=== PATIENT | female | born 1970 | race Caucasian/White ===

== ENCOUNTER 2020-08-17 11:15 | Emergency (ER) | payer OTHER, SELFPAY ==
[2020-08-17 11:24] VITALS: BP 124/77; BP 150/60; PULSE 70; PULSE 80; RESP 17; TEMP 36.4; O2SAT 97; BMI 31.8
--- NOTE | 2020-08-17 11:36 | ED.FALL ---
HPI - Fall General Chief Complaint: Fall Stated Complaint: fall Time Seen by Provider: 08/17/20 11:36 Source: patient and EMS Mode of arrival: EMS Limitations: no limitations History of Present Illness HPI Narrative: trip and fall onto her right knee having right knee pain and right hip pain. States the fall occurred due to her walking to bathroom and tripping. There was no prodromal symptoms. There was no injury to the torso head or neck. Otherwise she has been doing well at her baseline. Onset (ago): minute(s) Place fall occurred: home Loss of consciousness: none Prolonged down time: no Symptoms prior to fall: none Context: tripped/slipped Location of injury - extremities: left: knee Severity: moderate Quality: aching Associated symptoms (after fall): denies Related Data Allergies Allergy/AdvReac Type Severity Reaction Status Date / Time No Known Allergies Allergy Verified 08/17/20 11:31 Review of Systems Review of Systems: Constitutional: No Weight loss, No Fever, No Chills, No Night Sweats, No Fatigue, No Malaise ENT/Mouth: No Hearing loss, No Ear Pain, No Nasal Congestion, No Sinus Pain, No Hoarseness, No sore throat, No Rhinorrhea, No Swallowing Difficulty Eyes: No Eye Pain, No Swelling, No Redness, No Foreign Body, No Discharge, No Vision Changes Cardiovascular: No Chest Pain, No SOB, No Dyspnea on Exertion, No Orthopnea, No Edema, No Palpitations Respiratory: No Cough, No Sputum, No Wheezing, No Dyspnea Gastrointestinal: No Nausea, No Vomiting, No Diarrhea, No Constipation, No abdominal Pain, No Hematochezia, No Melena Genitourinary: no irregular bleeding, No Dysuria, No Urinary Frequency, No Hematuria, No Urinary Incontinence, No Urgency, No Flank Pain, No Urinary Flow Changes, No Hesitancy Musculoskeletal:as per HPI Skin: No Skin Lesions, No rash Neuro: No Weakness, No Numbness, No Paresthesias, No Loss of Consciousness, No Dizziness, No Headache Psych: No Social Issues Heme/Lymph: No Bruising, No Bleeding,No Lymphadenopathy Endocrine: No Polyuria, No Polydipsia, No Temperature Intolerance Yes all other systems are reviewed and are negative [facility] Past Medical History Attestation statement: The following information was validated with the patient. 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 High blood pressure Necrotizing fasciitis Social History Social History Alcohol intake: unknown Advance Directives: No Advance Directives Information Provided: Yes Physical Exam Vital Signs: Vital Signs: Vital Signs Temp Pulse Resp BP Pulse Ox 08/17/20 11:24 97.6 F 70 17 124/77 97 Body Mass Index 31.8 Reviewed Const: General: cooperative and healthy appearing; No acute distress or intoxicated appearing Nutritional Appearance: average body habitus Orientation/consciousness: patient oriented x3 HENMT: Head: Yes normal to inspection Ears: hearing grossly normal bilaterally Eyes: General: appearance normal, both eyes and all related structures Visual Smyth: normal visual smyth by confrontation Neck: Neck: Yes normal visual inspection and No tender Thyroid: Thyroid normal Chest: Chest palpation & inspection: normal inspection of the chest Resp: Effort & Inspection: normal respiratory effort Cardio: Jugular venous distension: no JVD GI: Inspection: Yes normal to inspection : General: Yes no CVA tenderness Back/Spine/Pelvis: Back: no CVA tenderness Skin: General skin exam: no rashes or lesions noted Neuro: General: patient oriented x3 Extrem: Other: Able to bend at the knee bilaterally. Slightly limited on the left side due to the pain in the knee. Bilateral negative leg lift. General: Yes normal to inspection Elbow/forearm/wrist images: 1. Small area of ecchymosis. No abrasion. Course Course Course Narrative: x-ray without acute findings. Patient able to get out of bed and use a walker at her baseline gait. A/P consistent with mechanical fall/contusion/ strain. Will discharge home with NSAIDs/acetaminophen and follow-up. MDM - Fall Medical Records Attestation: I reviewed the patient's medical records. Imaging Data Left knee/ right hip with pelvis: Radiologist's impression: Greer Akins 49 F 1970 [address] [address] XRay Report Signed Patient: Greer Akins [facility]#: [id number] : 1970Acct:[id number] Age/Sex: 49 / FADM Date: 08/17/20 Loc: HO.ED Attending Dr: Ordering Physician: John Wagoner NP Date of Service: 08/17/20 Procedure(s): XR hip RT w PEL1V Accession Number(s): [id number] cc: John Wagoner PHYSICIAN CODING SPECIALIST~ EXAMINATION: XR HIP, RIGHT XR KNEE, LEFT CLINICAL INFORMATION: Fall, pain, swelling. COMPARISON: Left knee 02/07/2018. TECHNIQUE: Pelvis 1 view, right hip 2 views. Left knee 4 views. FINDINGS: Pelvis and Right Hip: No evidence of acute fracture or dislocation of the right hip. Mild right hip arthritis, with mild joint space loss, acetabular rim spurring. Small calcifications/spurring adjacent to the greater tuberosity. Surgical clip in the medial thigh. Mild left hip arthritis. Mild bilateral SI joint arthritis. Degenerative changes in the lower lumbar spine. Szhr-[id number] symphysis pubis degeneration. No acute pelvic fractures are seen. Round calcification in the pelvis, perhaps calcified fibroid. Left Knee: Marginal spurring in the 3 compartments. Mild medial compartment joint space narrowing. Suspected patellofemoral compartment joint space narrowing on the lateral projection as well. No visible acute fracture or dislocation. Small effusion. IMPRESSION: PELVIS AND RIGHT HIP: 1. No evidence of acute fracture or dislocation. Mild bilateral hip joint arthritis. 2. Additional degenerative/arthritic changes as detailed above. LEFT KNEE: Tricompartment arthritis. No evidence of acute fracture or dislocation. Small effusion. Dictated By:VANESSA KATE MD Signed By:<Electronically signed by VANESSA KATE MD in OV>08/17/20 1239 DD/ 1148 TD/TT: Telecom Analyst: Discharge Plan Discharge Clinical Impression: Contusion of knee, Fall Patient Disposition: Home, Self-Care Instructions: Contusion in Adults (ED), Fall Prevention for Older Adults (ED) Additional Instructions: ice, elevate, compresses Tylenol alternate with ibuprofen per label instructions for pain discomfort Supportive cares reviewed Return if any concerning symptoms Thank you Referrals: Rancho Duarte MD [Primary Care Provider] - 2 days
--- NOTE | 2020-08-17 11:48 | XR_ITS ---
EXAMINATION: XR HIP, RIGHT XR KNEE, LEFT CLINICAL INFORMATION: Fall, pain, swelling. COMPARISON: Left knee 02/07/2018. TECHNIQUE: Pelvis 1 view, right hip 2 views. Left knee 4 views. FINDINGS: Pelvis and Right Hip: No evidence of acute fracture or dislocation of the right hip. Mild right hip arthritis, with mild joint space loss, acetabular rim spurring. Small calcifications/spurring adjacent to the greater tuberosity. Surgical clip in the medial thigh. Mild left hip arthritis. Mild bilateral SI joint arthritis. Degenerative changes in the lower lumbar spine. Adug-eq-elpyueng symphysis pubis degeneration. No acute pelvic fractures are seen. Round calcification in the pelvis, perhaps calcified fibroid. Left Knee: Marginal spurring in the 3 compartments. Mild medial compartment joint space narrowing. Suspected patellofemoral compartment joint space narrowing on the lateral projection as well. No visible acute fracture or dislocation. Small effusion. IMPRESSION: PELVIS AND RIGHT HIP: 1. No evidence of acute fracture or dislocation. Mild bilateral hip joint arthritis. 2. Additional degenerative/arthritic changes as detailed above. LEFT KNEE: Tricompartment arthritis. No evidence of acute fracture or dislocation. Small effusion.
[2020-08-17] MEDS: oxyCODONE HCl Immed Release 5 MG TABLET PO (13:09)
--- NOTE | 2020-08-17 14:04 | PC.NURSE ---
PT AMBULATED WITH WALKER 50 FT AND BACK TO ROOM WITHOUT ANY DIFFICULTY. PT HAS RIDE COMING TO TAKE HER HOME.
== END 2020-08-17 14:09 | disposition home or self-care (01) ==
PROVIDERS: Emergency Provider Emergency Medicine; PCP Internal Medicine
DX: S80.02XA Contusion of left knee, initial encounter (principal); W01.0XXA Fall on same level from slipping, tripping and stumbling without subsequent striking against object, initial encounter; E11.9 Type 2 diabetes mellitus without complications; Y93.89 Activity, other specified; Y92.012 Bathroom of single-family (private) house as the place of occurrence of the external cause; Y99.9 Unspecified external cause status
CPT/HCPCS: 73502; 73564; 99283

== ENCOUNTER 2021-01-20 10:00 | Outpatient (RCR) | payer OTHER, SELFPAY ==
--- NOTE | 2020-11-29 15:15 | MHC.PT.EP ---
[facility] [place] Office [place] Office [place] Office [address] [phone] F: [phone] F: [phone] F: [phone] F: [phone] Physical Therapy Plan of Care Date of Evaluation: 11/29/20 Date of Surgery: Diagnosis: pain in unspecified knee Assessment: Pt is a 50 y.o.f. with chief complaint of (L) leg pain following mechanical fall x 3. PMH is significant for necrotizing fasciitis that resulted in 3 month hospitalization and 3 weeks in ICU on ventilator. Following hospitalization pt has received rehab hospitalization x 4 weeks, home PT October 2020. Pt presents today with sensation changes across (B) feet, (L) ankle ROM deficits, decreased gastroc length, postural abnormalities, gait abnormalities including limited (L) foot clearance/toe drag, and global weakness of LEs with L>R. Pt weakness is likely due to deconditioning secondary to prior hospitalization. Pt sxs are consistent with global deconditioning resulting in functional mobility limitations that are further affected by left knee OA. Pt will benefit from skilled PT 2x week for 6 weeks to improve strength, ankle ROM, and gait/postural abnormalities to aid in functional mobility, ambulation, and ADLs. Frequency and Duration: The patient will be seen 2x/week for 6 weeks Short Term Goals: 3 Weeks: 1) Pt will be independent in HEP to maintain gains between sessions 2) Pt will be able to demonstrate proper STS technique to aid in transfers at home. Stuffed Casing Tier Goals: 6 Weeks: 1) Pt LE MMT will be 4/5 or greater to aid in ADLs 2) Pt will be able to ambulate >200 feet to aid in walking dog 3) Pt will be able to stand >45 minutes to aid in cleaning home Treatment Plan: Modalities to reduce pain, spasms and effusion. Manual therapy to restore motion and function. Therapeutic exercise to improve strength and flexibility. Neuromuscular re-education for posture and balance. Therapeutic activities to return to functional activities of daily living. Electronically signed by: Hattie Nagel PT Please sign and return to therapist. Thank you for your referral.
--- NOTE | 2021-01-20 10:55 | MHC.PT.DC ---
[facility] [place] Office [place] Office [place] Office [address] Ceasar Kirkpatrick [address] [phone] F: [phone] F: [phone] F: [phone] F: [phone] Physical Therapy Discharge Report Diagnosis: pain in unspecified knee Date of Surgery: Date of Evaluation: 11/29/20 Date of Discharge: 01/20/21 Treatments to Date: 12 Cancellations to Date: 0 No Shows to Date: 0 Discharge Status: Improved Function Independent with HEP Discharge Summary: Pt feels stronger over all and is now able to walk 10 minutes. She feels that she can get in/out of chairs easier as well. She will continue with services at home at this time and she is becoming more I managing medication. We reviewed HEP and pt performs correctly without cues. D/c at this time to I HEP. Electronically signed by: Hattie Cabral PT Please sign and return to therapist. Thank you for your referral.
== END 2021-01-20 10:57 | disposition home or self-care (01) ==
LOC: HO.PTCHIC 10:00
PROVIDERS: PCP Internal Medicine; Visit Provider Internal Medicine
DX: M25.569 Pain in unspecified knee (principal)
CPT/HCPCS: 97110; 97112; 97140; 97162; 97530

== ENCOUNTER 2021-06-11 08:59 | Outpatient (REF) | payer OTHER, SELFPAY ==
[2021-06-11 11:09] LABS: MANUAL DIFF FLAG NO
[2021-06-11 11:21] LABS: Basophils Absolute Auto 0.1 X10*3/uL (0.0-0.2); Basophils Percent Auto 0.6 % (0-2); Eosinophils Absolute Auto 0.4 X10*3/uL (0.0-0.4); Eosinophils Percent Auto 4.6 % (0-4); Hematocrit 43.9 % (37-47); Hemoglobin 14.3 g/dl (12.0-16.0); Imm Gran Abs Auto 0.04 X10*3/uL (0.00-0.03); Imm Gran Pct Auto 0.4 % (0.0-0.4); Lymphocytes Percent Auto 21.8 % (20-40); Mean Corpuscular HGB Conc 32.6 g/dl (31.0-35.0); Mean Corpuscular Hemoglobin 29.7 pg (27.0-33.0); Mean Corpuscular Volume 91.1 fL (80-98); Mean Platelet Volume 12.1 fL (9.4-12.3); Monocytes Absolute Auto 0.5 X10*3/uL (0.1-1.2); Monocytes Percent Auto 5.8 % (2-11); Neutrophils Absolute Auto 6.2 X10*3/uL (2.0-8.3); Neutrophils Percent Auto 66.8 % (45-73); Platelet Count 248 X10*3/uL (160-400); Red Blood Count 4.82 X10*6/uL (4.20-5.50); Red Cell Distribution Width 13.8 % (11.0-16.0); White Blood Count 9.3 X10*3/uL (4.8-10.8)
[2021-06-11 12:26] LABS: Alanine Aminotransferase 17 U/L (0-31); Albumin Level 4.5 g/dL (3.5-5.0); Alkaline Phosphatase 65 U/L (39-117); Anion Gap 14 (12-20); Aspartate Amino Transferase 17 U/L (5-31); Bilirubin Total 0.7 mg/dL (0.0-1.0); Blood Urea Nitrogen 21 mg/dL (9-16); Calcium 9.7 mg/dL (8.4-10.2); Carbon Dioxide 26 mmol/L (22-29); Chloride 108 mmol/L (96-108); Cholesterol 147 mg/dL; Estimated Glomerular Filt Rate > 60; HDL Cholesterol 31 mg/dL; LDL Cholesterol Calculated 80 mg/dl; Potassium 4.8 mmol/L (3.3-5.1); Sodium 143 mmol/L (135-145); Total Protein 7.5 g/dL (6.5-8.0); Triglycerides 181 mg/dL
[2021-06-11 12:41] LABS: Estimated Average Glucose 137 mg/dL; Hemoglobin A1c % 6.4 %
[2021-06-11 12:46] LABS: Thyroid Stimulating Hormone 0.92 uIU/mL (0.32-4.0)
[2021-06-11 12:54] LABS: Glucose Fasting 120 mg/dL (60-99)
== END 2021-06-11 09:00 | disposition home or self-care (01) ==
LOC: HO.HMGCLDS 08:59
PROVIDERS: PCP Internal Medicine; Visit Provider Internal Medicine
DX: Z00.00 Encounter for general adult medical examination without abnormal findings (principal); E11.9 Type 2 diabetes mellitus without complications; E03.9 Hypothyroidism, unspecified
CPT/HCPCS: 36415; 80053; 80061; 83036; 84443; 85025

== ENCOUNTER 2021-10-14 16:02 | Outpatient (REF) | payer MEDICARE, MEDICAID, SELFPAY ==
--- NOTE | ~2021-10-14 | XR_ITS ---
EXAMINATION: XR CHEST CLINICAL INFORMATION: R05.9 - Cough, unspecified COMPARISON: Chest radiographs 03/27/2020, 03/26/2020, 04/21/2017 TECHNIQUE: 2 views of the chest were obtained. FINDINGS: There is chronic mild elevation right diaphragm with crowding of the bronchovascular markings right base. There is mild superimposed airspace opacity right lateral base with probable trace effusion and fluid tracking in right minor fissure. No lobar or segmental airspace consolidation. There is chronic subpleural linear scarring left lower zone, similar to 2017. The heart is within normal size and the vascularity is within normal. XR/XR chest 2V IMPRESSION: 1. Small infiltrate right lateral base with probable trace effusion. 2. Chronic mild elevation right diaphragm with secondary passive atelectasis. 3. Linear subpleural scarring left lower zone similar to 2017.
[2021-10-14 18:47] LABS: Influenza A PCR NEGATIVE (Negative); Influenza B PCR NEGATIVE (Negative); Resp Syncy Virus RNA Qual PCR NEGATIVE (Negative); SARS COV2 PCR INHOUSE NEGATIVE (Negative)
== END 2021-10-14 16:03 | disposition home or self-care (01) ==
LOC: HO.HMGCX 16:02
PROVIDERS: PCP Internal Medicine; Visit Provider Internal Medicine
DX: Z20.822 Contact with and (suspected) exposure to COVID-19 (principal); R05.9 Cough, unspecified; R43.9 Unspecified disturbances of smell and taste
CPT/HCPCS: 0241U; 36415; 71046

== ENCOUNTER 2021-10-21 10:20 | Inpatient (IN) | payer MEDICARE, MEDICAID, SELFPAY ==
[2021-10-21] VITALS (7 sets, daily range): BP systolic 159–207; BP diastolic 74–110; PULSE 69–90; RESP 16–18; TEMP 36.5–36.8; O2SAT 92–94; BMI 37.2
--- NOTE | ~2021-10-21 | XR_ITS ---
EXAMINATION: XR CHEST CLINICAL INFORMATION: Cough. COMPARISON: Chest 2 views 10/14/2021 TECHNIQUE: Frontal view of the chest was obtained. FINDINGS: The lungs are hypoexpanded with chronically elevated right hemidiaphragm with underlying atelectasis. There is platelike atelectasis in the lingula. Heart size is enlarged. Is increased bilateral interstitial markings.. No gross bony abnormality seen. XR/XR chest 1V IMPRESSION: Hypoexpanded lungs. Right basilar atelectasis and platelike atelectasis in the lingula. Increased interstitial markings question pneumonitis versus edema.
--- NOTE | ~2021-10-21 | CT_ITS ---
EXAMINATION: CT ABDOMEN AND PELVIS WITH CONTRAST CLINICAL INFORMATION: Right lower quadrant pain COMPARISON: None TECHNIQUE: Multidetector volumetric images were obtained from the superior aspect of the liver through the pubic symphysis following administration 85 mL of Omnipaque 350 intravenous contrast. Sagittal and coronal reformatted images were obtained on the technologist's workstation. Oral contrast: No This CT examination was performed using dose optimization techniques as appropriate, variously including the following: *Automated exposure control *Adjustment of mA and/or kV according to patient size (this includes techniques or standardized protocols for targeted exams where dose is matched to indication/reason for exam; i.e. extremities or head) *Use of iterative reconstruction technique DLP: 818 mGy-cm FINDINGS: LUNG BASES: There is a right middle lobe airspace disease likely infiltrate or atelectasis. Rest lungs are clear. The heart size and pulmonary vascularity is normal. LIVER, GALLBLADDER, AND BILIARY TREE: The liver is normal in size, shape, and attenuation. No focal hepatic lesion or biliary ductal dilatation is present. There is a hyperdense gravel or small stones, axial image 31/3, along the dependent portion of gallbladder without wall thickening PANCREAS: Unremarkable. SPLEEN: Unremarkable. ADRENAL GLANDS: The left adrenal gland is enlarged measuring 2.5 x 1.6 cm and approximately 38 Hounsfield units not a benign adenoma. There is focal nodule in the right adrenal gland is well measuring and 1.1 cm. KIDNEYS AND URETERS: The kidneys are normal in size, shape, and attenuation. No hydronephrosis, hydroureter, or calculi seen. No perinephric stranding. BLADDER: The right kidney is small with diffuse cortical thinning. There are obstructive 1.3 cm radiopaque calculi mid pole with chronic caliectasis a nonobstructive lower pole 1.7 cm calculi right kidney without caliectasis is noted. There are several additional calculi seen in mid and lower pole. There is a partially obstructing 5 mm radiopaque calculi right UPJ. GASTROINTESTINAL TRACT: There is moderate stool in right colon. There is soft tissue density at the ileocecal valve measuring - -74 Hounsfield units suggestive of a lipomatous valve. No proximal small bowel obstruction seen. The appendix is normal. The stomach is nondistended and appears unremarkable. ABDOMINAL WALL: No evidence of hernia. LYMPH NODES: Small shotty lymph nodes are seen in the retroperitoneum largest aortocaval lymph node measures 1.4 x 0.9 cm axial image 41/3. VASCULAR: There are atherosclerotic changes of abdominal aorta with mild circumferential thrombus but no aneurysmal dilatation seen origins of celiac, superior and inferior mesenteric arteries are widely patent there is evidence of sclerotic plaque proximal SMA with moderate narrowing. PELVIC VISCERA: The uterus is anteverted with a moderate size calcified fibroid lower uterine segment measuring 1. 1.9 x 1.7 x 1.7 cm. No adnexal mass seen. No free fluid. There is no inguinal hernia or abnormal lymph nodes. OSSEOUS STRUCTURES: There are vacuum disc phenomena and degenerative disc changes at T11-T12, T12/L1 and L1-L2 disc levels. No aggressive lytic or sclerotic process seen. CT/CT abdomen pelvis w con IMPRESSION: No acute intra-abdominal process seen. Multiple midpole and lower pole radiopaque moderate size calculi within obstructive mid pole caliectasis. There is mild hydronephrosis from a right UVJ partially obstructive stone. There is a chronic cortical thinning midpole and upper pole right kidney. Radiopaque gravel was stones in the dependent portion of gallbladder but no wall thickening. Correlate with ultrasound. Lipomatous ileocecal valve with mild constipation. No proximal bowel obstruction. Normal appendix. There is no free air or free fluid. .
--- NOTE | ~2021-10-21 | FL_ITS ---
EXAMINATION: XR FLUOROSCOPY WITH IMAGES CLINICAL INFORMATION: Right urinary tract calculi. COMPARISON: CT abdomen and pelvis 10/21/2021 TECHNIQUE: Fluoroscopy performed by Dr. Leroy Farr. Fluoroscopy time: 49 seconds. Total Dose: 17.38 mGy Images: 2 FINDINGS: There is a catheter or stent seen in the right urinary tract. Contrast in the collecting system shows no hydronephrosis. There are some subtle filling defects present collecting system and proximal ureter corresponding to calculi on recent CT. FL/FL guidance in OR IMPRESSION: Fluoroscopy for urologic procedure.
--- NOTE | 2021-10-21 10:46 | ECG_ITS ---
Test Reason : abdominal pain Blood Pressure : / mmHG Vent. Rate : 072 BPM Atrial Rate : 072 BPM P-R Int : 188 ms QRS Dur : 078 ms QT Int : 392 ms P-R-T Axes : 033 -17 094 degrees QTc Int : 429 ms Sinus rhythm with occasional Premature ventricular complexes Anteroseptal infarct (cited on or before 22-SEP-2015) Abnormal ECG When compared with ECG of 26-MAR-2020 16:28, Premature ventricular complexes are now Present Questionable change in initial forces of Anterior leads ST no longer depressed in Anterolateral leads Nonspecific T wave abnormality no longer evident in Inferior leads Nonspecific T wave abnormality, worse in Lateral leads QT has shortened Referred By: Lizzie Cespedes Electronically Signed By:ROLLY FREDERICK
--- NOTE | 2021-10-21 10:54 | ED_ITS ---
HPI - Abdominal Pain General Chief Complaint: Abdominal Pain Stated Complaint: ABD PAIN Time Seen by Provider: 10/21/21 10:44 Source: patient Mode of arrival: EMS Limitations: no limitations History of Present Illness MD elicited complaint: abdominal pain Pertinent past history: none Onset (ago): day(s) (3) Pain Consistency: constant Location: RUQ and RLQ Severity: moderate Quality: stabbing Radiation: none Migration to: no migration Exacerbating factors: movement Relieving factors: nothing Context: recent antibiotic use (azithromycin one week ago from for URI) Associated symptoms: nausea and chills Related Data Home Medications Medication Instructions Recorded Confirmed acetaminophen 325 mg tablet 325 mg PO BID PRN 09/18/20 10/21/21 aspirin 81 mg tablet,delayed 81 mg PO DAILY 09/18/20 10/21/21 release hydroxyzine HCl 25 mg tablet 25 mg PO DAILY PRN tab 03/17/21 10/21/21 melatonin 3 mg tablet 3 mg PO BEDTIME 03/17/21 10/21/21 multivitamin with minerals-ferrous 1 tab PO DAILY tab 03/17/21 10/21/21 sulfate 4.5 mg iron tablet (One Daily Multivitamins with Minerals) albuterol sulfate 90 mcg/actuation 1 inh INHALATION QID PRN 10/21/21 10/21/21 aerosol inhaler nystatin 100,000 unit/gram topical 1 applic TOPICAL TID PRN 10/21/21 10/21/21 powder Previous Rx's Medication Instructions Recorded sertraline 100 mg tablet 100 mg PO DAILY #30 cap 12/13/20 amlodipine 5 mg tablet (Norvasc) 5 mg PO DAILY #30 tab 06/12/21 ergocalciferol (vitamin D2) 1,250 1,250 mcg PO QWEEK #4 cap 07/02/21 mcg (50,000 unit) capsule (Vitamin D2) omeprazole 40 mg capsule,delayed 40 mg PO DAILY #30 cap 07/02/21 release carvedilol 12.5 mg tablet 12.5 mg PO BID #60 tab 07/10/21 atorvastatin 80 mg tablet 80 mg PO DAILY #30 tab 07/26/21 gabapentin 100 mg capsule 200 mg PO TID #180 cap 08/28/21 metformin 500 mg tablet 500 mg PO BEDTIME #30 tab 09/06/21 insulin NPH isoph U-100 human 100 15 unit (0.15 mL) SUBCUT QAM 30 10/07/21 unit/mL (3 mL) subcutaneous pen Days #6 ml (Humulin N NPH U-100 Insulin KwikPen) Allergies Allergy/AdvReac Type Severity Reaction Status Date / Time No Known Allergies Allergy Verified 10/14/21 15:29 Review of Systems Review of Systems Constitutional : No Weight loss, No Fever, pos Chills ENT/Mouth : No sore throat, No Rhinorrhea Eyes: No Swelling, No Redness Cardiovascular : No Chest Pain, No SOB, NoEdema Respiratory : pos Cough, No Sputum, No Wheezing Gastrointestinal : Positive Nausea, no Vomiting, no Diarrhea, positive abdominal Pain, No Hematochezia, No Melena Genitourinary : No Dysuria, No Urinary Frequency, No Hematuria, No Urgency Musculoskeletal : No joint pain, No Myalgias, No Joint Swelling Skin : No Skin Lesions, No rash Neuro : No Weakness, No Numbness, No Dizziness, No Headache Psych : No Anxiety/Panic, No Depression Heme/Lymph: No Bruising, No Lymphadenopathy Endocrine : No Polyuria, No Polydipsia All other systems reviewed and are negative. Physical Exam Vital Signs: Vital Signs: Last Vital Signs Temp 98.3 F 10/21/21 10:38 Pulse 75 10/21/21 11:04 Resp 16 10/21/21 11:04 BP 172/77 H 10/21/21 11:04 Pulse Ox 94 10/21/21 11:04 BMI result Body Mass Index 37.2 Appearance: Alert. Oriented X3. No acute distress. Sweating Eyes: Pupils equal, round and reactive to light. ENT: Pharynx normal. Neck: Normal inspection. Neck supple. CVS: Normal heart rate and rhythm. Pulses normal. Respiratory: No respiratory distress. Breath sounds decreased throughout Abdomen: Soft and mild RLQ and moderate RUQ ttp no rebound Skin: Skin warm and dry. Normal skin color. Normal skin turgor. Extremities: No lower extremity edema. No calf ttp Neuro: Oriented X 3. No motor deficit. No sensory deficit. Course Course Course Narrative: + UA at this time infection suspected cultures and lactic acid was ordered, IV ceftriaxone ordered 1242pm Dr. Farr aware plan to admit for pyelo with stone MDM - Abdominal Pain MDM Narrative Medical decision making narrative: 51 yo female with hx of DM necrotizing fasciitis in genital area, CAD< HTN, HLD, depression, comes in with c/o recent URI on zpak notes a few days of RUQ and RLQ pain with some sweats and chills - at this time will need labs, EKG, CXR for pneumonia, IV morphine/zofran for pain, CT scan for infection dispo per results and findings. Dispo per results and findings. Lab Data Result diagrams: 10/21/21 11:48 10/21/21 11:48 Labs: Lab Results 10/21/21 10/21/21 10/21/21 Range/Units 11:33 11:33 11:48 WBC 14.2 H (4.8-10.8) X10*3/uL RBC 4.72 (4.20-5.50) X10*6/uL Hgb 14.1 (12.0-16.0) g/dl Hct 43.1 (37.0-47.0) % MCV 91.3 (80.0-98.0) fL MCH 29.9 (27.0-33.0) pg MCHC 32.7 (31.0-35.0) g/dl RDW 13.2 (11.0-16.0) % Plt Count 259 (160-400) X10*3/uL MPV 11.1 (9.4-12.3) fL Immature Gran % (Auto) 0.6 H (0.0-0.4) % Neut % (Auto) 84.8 H (45-73) % Lymph % (Auto) 9.8 L (20-40) % [place] % (Auto) 2.7 (2-11) % Eos % (Auto) 1.7 (0-4) % Baso % (Auto) 0.4 (0-2) % Lymph # (Auto) 1.4 (1.2-4.9) X10*3/uL [place] # (Auto) 0.4 (0.1-1.2) X10*3/uL Eos # (Auto) 0.2 (0.0-0.4) X10*3/uL Baso # (Auto) 0.1 (0.0-0.2) X10*3/uL Abs Immat Gran (auto) 0.08 H (0.00-0.03) X10*3/uL Absolute Neuts (auto) 12.1 H (2.0-8.3) x10*3/uL Absolute Nucleated RBC 0.000 (0.0-0.012) X10*3/uL Nucleated RBC % (auto) 0.0 (0.0-0.2) /100WBC VBG pH (7.32-7.43) VBG pCO2 mmHg VBG pO2 mmHg VBG HCO3 (22-26) mmol/L VBG O2 Saturation % VBG Base Excess mmol/L Sodium (135-145) mmol/L Potassium (3.3-5.1) mmol/L Chloride (96-108) mmol/L Carbon Dioxide (22-29) mmol/L Anion Gap (12-20) BUN (9-16) mg/dL Creatinine (0.5-1.4) mg/dL Estim Creat Clear Calc Estimated GFR Random Glucose (60-115) mg/dL Lactic Acid (0.5-2.0) mmol/L Calcium (8.4-10.2) mg/dL Magnesium (1.6-2.6) mg/dL Total Bilirubin (0.0-1.0) mg/dL Direct Bilirubin (0.0-0.5) mg/dL AST (5-31) U/L ALT (0-31) U/L Alkaline Phosphatase (39-117) U/L Troponin I High Sens (<3.5-17.0) ng/L Total Protein (6.5-8.0) g/dL Albumin (3.5-5.0) g/dL Lipase (8-78) U/L Urine Color YELLOW Urine Appearance CLOUDY Urine pH 6.0 (5.0-8.0) Ur Specific [place] 1.025 (1.005-1.025) Urine Protein 2+ H (NEG-TRACE) MG/DL Urine Glucose (UA) NEG (NEG) MG/DL Urine Ketones NEG (NEG) MG/DL Urine Blood 2+ H (NEG) Urine Nitrite NEG (NEG) Ur Leukocyte Esterase 1+ H (NEG) Urine RBC 5-9 H (0) /HPF Urine WBC TNTC H (0-4) /HPF Urine WBC Clumps NOTED Ur Squamous Epith Cells 1+ /LPF Urine Bacteria 1+ /LPF COVID-19 (JORDON) Negative (Negative) COVID-19 Clin Com See Note 10/21/21 10/21/21 10/21/21 Range/Units 11:48 11:48 11:50 WBC (4.8-10.8) X10*3/uL RBC (4.20-5.50) X10*6/uL Hgb (12.0-16.0) g/dl Hct (37.0-47.0) % MCV (80.0-98.0) fL MCH (27.0-33.0) pg MCHC (31.0-35.0) g/dl RDW (11.0-16.0) % Plt Count (160-400) X10*3/uL MPV (9.4-12.3) fL Immature Gran % (Auto) (0.0-0.4) % Neut % (Auto) (45-73) % Lymph % (Auto) (20-40) % [place] % (Auto) (2-11) % Eos % (Auto) (0-4) % Baso % (Auto) (0-2) % Lymph # (Auto) (1.2-4.9) X10*3/uL [place] # (Auto) (0.1-1.2) X10*3/uL Eos # (Auto) (0.0-0.4) X10*3/uL Baso # (Auto) (0.0-0.2) X10*3/uL Abs Immat Gran (auto) (0.00-0.03) X10*3/uL Absolute Neuts (auto) (2.0-8.3) x10*3/uL Absolute Nucleated RBC (0.0-0.012) X10*3/uL Nucleated RBC % (auto) (0.0-0.2) /100WBC VBG pH (7.32-7.43) VBG pCO2 mmHg VBG pO2 mmHg VBG HCO3 (22-26) mmol/L VBG O2 Saturation % VBG Base Excess mmol/L Sodium 142 (135-145) mmol/L Potassium 4.0 (3.3-5.1) mmol/L Chloride 106 (96-108) mmol/L Carbon Dioxide 26 (22-29) mmol/L Anion Gap 14 (12-20) BUN 22 H (9-16) mg/dL Creatinine 0.86 (0.5-1.4) mg/dL Estim Creat Clear Calc 83.0 Estimated GFR > 60 Random Glucose 217 H (60-115) mg/dL Lactic Acid 1.4 (0.5-2.0) mmol/L Calcium 9.9 (8.4-10.2) mg/dL Magnesium 1.7 (1.6-2.6) mg/dL Total Bilirubin 0.4 (0.0-1.0) mg/dL Direct Bilirubin 0.2 (0.0-0.5) mg/dL AST 12 (5-31) U/L ALT 17 (0-31) U/L Alkaline Phosphatase 79 D (39-117) U/L Troponin I High Sens 5.8 (<3.5-17.0) ng/L Total Protein 7.7 (6.5-8.0) g/dL Albumin 4.5 (3.5-5.0) g/dL Lipase 19 (8-78) U/L Urine Color Urine Appearance Urine pH (5.0-8.0) Ur Specific [place] (1.005-1.025) Urine Protein (NEG-TRACE) MG/DL Urine Glucose (UA) (NEG) MG/DL Urine Ketones (NEG) MG/DL Urine Blood (NEG) Urine Nitrite (NEG) Ur Leukocyte Esterase (NEG) Urine RBC (0) /HPF Urine WBC (0-4) /HPF Urine WBC Clumps Ur Squamous Epith Cells /LPF Urine Bacteria /LPF COVID-19 (JORDON) (Negative) COVID-19 Clin Com 10/21/21 Range/Units 11:55 WBC (4.8-10.8) X10*3/uL RBC (4.20-5.50) X10*6/uL Hgb (12.0-16.0) g/dl Hct (37.0-47.0) % MCV (80.0-98.0) fL MCH (27.0-33.0) pg MCHC (31.0-35.0) g/dl RDW (11.0-16.0) % Plt Count (160-400) X10*3/uL MPV (9.4-12.3) fL Immature Gran % (Auto) (0.0-0.4) % Neut % (Auto) (45-73) % Lymph % (Auto) (20-40) % [place] % (Auto) (2-11) % Eos % (Auto) (0-4) % Baso % (Auto) (0-2) % Lymph # (Auto) (1.2-4.9) X10*3/uL [place] # (Auto) (0.1-1.2) X10*3/uL Eos # (Auto) (0.0-0.4) X10*3/uL Baso # (Auto) (0.0-0.2) X10*3/uL Abs Immat Gran (auto) (0.00-0.03) X10*3/uL Absolute Neuts (auto) (2.0-8.3) x10*3/uL Absolute Nucleated RBC (0.0-0.012) X10*3/uL Nucleated RBC % (auto) (0.0-0.2) /100WBC VBG pH 7.36 (7.32-7.43) VBG pCO2 45 mmHg VBG pO2 49 mmHg VBG HCO3 25 (22-26) mmol/L VBG O2 Saturation 73.0 % VBG Base Excess -0.2 mmol/L Sodium (135-145) mmol/L Potassium (3.3-5.1) mmol/L Chloride (96-108) mmol/L Carbon Dioxide (22-29) mmol/L Anion Gap (12-20) BUN (9-16) mg/dL Creatinine (0.5-1.4) mg/dL Estim Creat Clear Calc Estimated GFR Random Glucose (60-115) mg/dL Lactic Acid (0.5-2.0) mmol/L Calcium (8.4-10.2) mg/dL Magnesium (1.6-2.6) mg/dL Total Bilirubin (0.0-1.0) mg/dL Direct Bilirubin (0.0-0.5) mg/dL AST (5-31) U/L ALT (0-31) U/L Alkaline Phosphatase (39-117) U/L Troponin I High Sens (<3.5-17.0) ng/L Total Protein (6.5-8.0) g/dL Albumin (3.5-5.0) g/dL Lipase (8-78) U/L Urine Color Urine Appearance Urine pH (5.0-8.0) Ur Specific [place] (1.005-1.025) Urine Protein (NEG-TRACE) MG/DL Urine Glucose (UA) (NEG) MG/DL Urine Ketones (NEG) MG/DL Urine Blood (NEG) Urine Nitrite (NEG) Ur Leukocyte Esterase (NEG) Urine RBC (0) /HPF Urine WBC (0-4) /HPF Urine WBC Clumps Ur Squamous Epith Cells /LPF Urine Bacteria /LPF COVID-19 (JORDON) (Negative) COVID-19 Clin Com ECG Data Attestation: I personally reviewed and interpreted this ECG as follows: ECG interpretation date: 10/21/21 ECG interpretation time: 12:29 Interpretation: Rate: 72 Rhythm: NSR [place]: left Normal P waves. Normal CODY. Normal QRS complex. ST T wave : nonspecific inverted lateral leads, no MILEY qTC: normal prior studies: no acute ischemia The study has been interpreted contemporaneously by me. . Discharge Plan Discharge Clinical Impression: UTI (urinary tract infection), Pyelonephritis, Ureteropelvic junction calculus Patient Disposition: Admitted As Inpatient Prescriptions: No Action sertraline 100 mg tablet 100 mg PO DAILY Qty: 30 RF: 3 ergocalciferol (vitamin D2) [Vitamin D2] 1,250 mcg (50,000 unit) capsule 1,250 mcg PO QWEEK Qty: 4 RF: 5 omeprazole 40 mg capsule,delayed release(DR/EC) 40 mg PO DAILY Qty: 30 RF: 3 carvedilol 12.5 mg tablet 12.5 mg PO BID Qty: 60 RF: 3 atorvastatin 80 mg tablet 80 mg PO DAILY Qty: 30 RF: 3 gabapentin 100 mg capsule 200 mg PO TID Qty: 180 RF: 3 metformin 500 mg tablet 500 mg PO BEDTIME Qty: 30 RF: 3 Humulin N NPH Insulin KwikPen 100 unit/mL (3 mL) insulin pen 15 unit subcut QAM 30 Days Qty: 6 RF: 3 nystatin 100,000 unit/gram powder 1 applic topical TID PRN (Reason: Skin Irritation) RF: 0 albuterol sulfate 90 mcg/actuation HFA aerosol inhaler 1 inh inhalation QID PRN (Reason: shortness of breath or wheezing) RF: 0 acetaminophen 325 mg tablet 325 mg PO BID PRN (Reason: Pain) RF: 0 aspirin 81 mg tablet,delayed release (DR/EC) 81 mg PO DAILY RF: 0 amlodipine [Norvasc] 5 mg tablet 5 mg PO DAILY Qty: 30 RF: 8 melatonin 3 mg tablet 3 mg PO BEDTIME RF: 0 One Daily Multi-Vit w-Mineral 4.5 mg iron tablet 1 tab PO DAILY RF: 0 hydroxyzine HCl 25 mg tablet 25 mg PO DAILY PRN (Reason: anxiety) RF: 0 PMFSH Past Medical History Attestation statement: The following information was validated with the patient. 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 Vitamin D deficiency Surgical History History of arthroscopy of left knee (~12/2011) History of breast lump/mass excision (~03/2017) History of heart artery stent (~09/2015) Family History Family History (Updated 06/12/21 @ 13:47 by SIMÓN Hammer) Father Alzheimer's dementia Social History Social History Housing: House Alcohol intake: never Patient Tobacco Use Status: Current everyday Tobacco user Tobacco use type: Cigarette Cigarettes Per Day: 20 e-Cigarette/Vaping Use: Never Used Second Hand Smoke Exposure: No Advance Directives: No Advance Directives Information Provided: No Patient : No service: No Current occupational status: disabled
[2021-10-21] MEDS: Albuterol Sulfate (0.083%) 2.5 MG/3 ML VIAL.NEB INHALE (10:57)
[2021-10-21] MEDS: 0.9 % Sodium Chloride 1,000 ML 999 ML IVCONT (11:18)
[2021-10-21] MEDS: Morphine Sulfate 4 MG/ML CARTRIDGE IVPUSH (11:25)
[2021-10-21] MEDS: ondansetron HCL 4 MG/2 ML VIAL IVPUSH (11:25)
[2021-10-21 11:43] LABS: Appearance Urine CLOUDY; Color Urine YELLOW; Glucose Urine UA NEG (NEG); Leukocyte Esterase Urine 1+ (NEG); Nitrite Urine NEG (NEG); Specific Gravity - Urine 1.025 (1.005-1.025); UACC Culture Trigger YES; Urine Blood 2+ (NEG); Urine Ketones NEG (NEG); Urine Protein 2+ MG/DL (NEG-TRACE)
[2021-10-21 11:57] LABS: COVID-19 Test Negative (Negative)
[2021-10-21 11:57] LABS: MANUAL DIFF FLAG NO
[2021-10-21 12:03] LABS: Basophils Absolute Auto 0.1 X10*3/uL (0.0-0.2); Basophils Percent Auto 0.4 % (0-2); Eosinophils Absolute Auto 0.2 X10*3/uL (0.0-0.4); Eosinophils Percent Auto 1.7 % (0-4); Hematocrit 43.1 % (37.0-47.0); Hemoglobin 14.1 g/dl (12.0-16.0); Imm Gran Abs Auto 0.08 X10*3/uL (0.00-0.03); Imm Gran Pct Auto 0.6 % (0.0-0.4); Lymphocytes Absolute Auto 1.4 X10*3/uL (1.2-4.9); Lymphocytes Percent Auto 9.8 % (20-40); Mean Corpuscular HGB Conc 32.7 g/dl (31.0-35.0); Mean Corpuscular Hemoglobin 29.9 pg (27.0-33.0); Mean Corpuscular Volume 91.3 fL (80.0-98.0); Mean Platelet Volume 11.1 fL (9.4-12.3); Monocytes Absolute Auto 0.4 X10*3/uL (0.1-1.2); Monocytes Percent Auto 2.7 % (2-11); Neutrophils Absolute Auto 12.1 x10*3/uL (2.0-8.3); Neutrophils Percent Auto 84.8 % (45-73); Platelet Count 259 X10*3/uL (160-400); Red Blood Count 4.72 X10*6/uL (4.20-5.50); Red Cell Distribution Width 13.2 % (11.0-16.0); White Blood Count 14.2 X10*3/uL (4.8-10.8)
[2021-10-21 12:08] LABS: WBC Urine TNTC /HPF (0-4)
[2021-10-21 12:09] LABS: Bacteria Urine 1+ /LPF; Squamous Epithelial Cell Urine 1+ /LPF
[2021-10-21 12:10] LABS: WBC Clumps Urine NOTED
[2021-10-21 12:15] LABS: Venous Blood Gas Refer to POC result
[2021-10-21 12:15] LABS: VBG Base Excess -0.2 mmol/L; VBG HCO3 25 mmol/L (22-26); VBG pCO2 45 mmHg; VBG pH 7.36 (7.32-7.43); VBG pO2 49 mmHg
[2021-10-21 12:15] LABS: Lactic Acid 1.4 mmol/L (0.5-2.0)
[2021-10-21 12:24] LABS: Troponin-I High Sensitivity 5.8 ng/L (<3.5-17.0)
[2021-10-21 12:25] LABS: Alanine Aminotransferase 17 U/L (0-31); Albumin Level 4.5 g/dL (3.5-5.0); Alkaline Phosphatase 79 U/L (39-117); Anion Gap 14 (12-20); Aspartate Amino Transferase 12 U/L (5-31); Bilirubin Direct 0.2 mg/dL (0.0-0.5); Bilirubin Total 0.4 mg/dL (0.0-1.0); Blood Urea Nitrogen 22 mg/dL (9-16); Calcium 9.9 mg/dL (8.4-10.2); Carbon Dioxide 26 mmol/L (22-29); Chloride 106 mmol/L (96-108); Estimated Glomerular Filt Rate > 60; Glucose Random 217 mg/dL (60-115); Lipase 19 U/L (8-78); Magnesium 1.7 mg/dL (1.6-2.6); Sodium 142 mmol/L (135-145); Total Protein 7.7 g/dL (6.5-8.0)
[2021-10-21] MEDS: cefTRIAXone sodium 1 GM in 0.9 % Sodium Chloride 50 ML IV (12:50)
[2021-10-21] MEDS: iohexoL 350 MG/ML 100 ML INFUS..BTL IV (13:23)
--- NOTE | 2021-10-21 14:01 | PHA.MEDREC ---
Pharmacy Consult ? Medication Reconciliation Pharmacy has completed the medication reconciliation. No remarkable issues. Justina Smith, FitoD
--- NOTE | 2021-10-21 14:40 | P.HPHOSP_ITS ---
History of Present Illness Date of Service: 10/21/21 Chief Complaint: Abdominal pain, right 51 female with history of diabetes that is managed with insulin, CKD, history necrotizing fasciites of perineal area, HTN who presents with lower abdominal pain, of moderate intensity and right flank pain f about 6/10, she has had chills, no nausea of vomitting, CT of abdomen and pelvis shows a mild hydronephr osis from a right UVJ partially obstructive stone, renla function is normal, UA is positive for UTI, WBC is 14K, doesn't meet sepsis criteria. 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 Vitamin D deficiency Family History Father Alzheimer's dementia Surgical History History of arthroscopy of left knee (~12/2011) History of breast lump/mass excision (~03/2017) History of heart artery stent (~09/2015) Social History Housing: House Alcohol intake: never Patient Tobacco Use Status: Current everyday Tobacco user Tobacco use type: Cigarette Cigarettes Per Day: 20 e-Cigarette/Vaping Use: Never Used Second Hand Smoke Exposure: No Advance Directives: No Advance Directives Information Provided: No Patient : No service: No Current occupational status: disabled Meds Allergies Allergy/AdvReac Type Severity Reaction Status Date / Time No Known Allergies Allergy Verified 10/14/21 15:29 Active Medications: Current Medications Pharmacy Consult (Consult Rx Perform Med Rec) 1 each MISCELLANE ONCE PRN PRN Reason: Consult order Home Medications Medication Instructions Recorded Confirmed Last Taken Type acetaminophen 325 mg tablet 325 mg PO BID PRN 09/18/20 10/21/21 10/20/21 History aspirin 81 mg tablet,delayed 81 mg PO DAILY 09/18/20 10/21/21 10/20/21 History release hydroxyzine HCl 25 mg tablet 25 mg PO DAILY PRN tab 03/17/21 10/21/21 10/20/21 History melatonin 3 mg tablet 3 mg PO BEDTIME 03/17/21 10/21/21 10/20/21 History multivitamin with minerals-ferrous 1 tab PO DAILY tab 03/17/21 10/21/21 10/20/21 History sulfate 4.5 mg iron tablet (One Daily Multivitamins with Minerals) albuterol sulfate 90 mcg/actuation 1 inh INHALATION QID PRN 10/21/21 10/21/21 10/20/21 History aerosol inhaler nystatin 100,000 unit/gram topical 1 applic TOPICAL TID PRN 10/21/21 10/21/21 10/20/21 History powder Physical Exam 2 Vital Signs and Narrative: Vital Signs: Last Vital Signs Temp 98.3 F 10/21/21 10:38 Pulse 75 10/21/21 11:04 Resp 16 10/21/21 11:04 BP 172/77 H 10/21/21 11:04 Pulse Ox 94 10/21/21 11:04 BMI result Body Mass Index 37.2 Results Labs CBC and Chem 7: 10/21/21 11:48 10/21/21 11:48 Labs: Laboratory Results - last 24 hr 10/21/21 10/21/21 10/21/21 11:33 11:33 11:48 MCV 91.3 MCH 29.9 MCHC 32.7 RDW 13.2 Plt Count 259 MPV 11.1 Immature Gran % (Auto) 0.6 H Neut % (Auto) 84.8 H Lymph % (Auto) 9.8 L [place] % (Auto) 2.7 Eos % (Auto) 1.7 Baso % (Auto) 0.4 Lymph # (Auto) 1.4 [place] # (Auto) 0.4 Eos # (Auto) 0.2 Baso # (Auto) 0.1 Abs Immat Gran (auto) 0.08 H Absolute Neuts (auto) 12.1 H Absolute Nucleated RBC 0.000 Nucleated RBC % (auto) 0.0 VBG pH VBG pCO2 VBG pO2 VBG HCO3 VBG O2 Saturation VBG Base Excess Anion Gap Estim Creat Clear Calc Estimated GFR Random Glucose Lactic Acid Calcium Magnesium Total Bilirubin Direct Bilirubin AST ALT Alkaline Phosphatase Troponin I High Sens Total Protein Albumin Lipase Urine Color YELLOW Urine Appearance CLOUDY Urine pH 6.0 Ur Specific [place] 1.025 Urine Protein 2+ H Urine Glucose (UA) NEG Urine Ketones NEG Urine Blood 2+ H Urine Nitrite NEG Ur Leukocyte Esterase 1+ H Urine RBC 5-9 H Urine WBC TNTC H Urine WBC Clumps NOTED Ur Squamous Epith Cells 1+ Urine Bacteria 1+ COVID-19 (JORDON) Negative COVID-19 Clin Com See Note 10/21/21 10/21/21 10/21/21 11:48 11:48 11:50 MCV MCH MCHC RDW Plt Count MPV Immature Gran % (Auto) Neut % (Auto) Lymph % (Auto) [place] % (Auto) Eos % (Auto) Baso % (Auto) Lymph # (Auto) [place] # (Auto) Eos # (Auto) Baso # (Auto) Abs Immat Gran (auto) Absolute Neuts (auto) Absolute Nucleated RBC Nucleated RBC % (auto) VBG pH VBG pCO2 VBG pO2 VBG HCO3 VBG O2 Saturation VBG Base Excess Anion Gap 14 Estim Creat Clear Calc 83.0 Estimated GFR > 60 Random Glucose 217 H Lactic Acid 1.4 Calcium 9.9 Magnesium 1.7 Total Bilirubin 0.4 Direct Bilirubin 0.2 AST 12 ALT 17 Alkaline Phosphatase 79 D Troponin I High Sens 5.8 Total Protein 7.7 Albumin 4.5 Lipase 19 Urine Color Urine Appearance Urine pH Ur Specific [place] Urine Protein Urine Glucose (UA) Urine Ketones Urine Blood Urine Nitrite Ur Leukocyte Esterase Urine RBC Urine WBC Urine WBC Clumps Ur Squamous Epith Cells Urine Bacteria COVID-19 (JORDON) COVID-19 Clin Com 10/21/21 11:55 MCV MCH MCHC RDW Plt Count MPV Immature Gran % (Auto) Neut % (Auto) Lymph % (Auto) [place] % (Auto) Eos % (Auto) Baso % (Auto) Lymph # (Auto) [place] # (Auto) Eos # (Auto) Baso # (Auto) Abs Immat Gran (auto) Absolute Neuts (auto) Absolute Nucleated RBC Nucleated RBC % (auto) VBG pH 7.36 VBG pCO2 45 VBG pO2 49 VBG HCO3 25 VBG O2 Saturation 73.0 VBG Base Excess -0.2 Anion Gap Estim Creat Clear Calc Estimated GFR Random Glucose Lactic Acid Calcium Magnesium Total Bilirubin Direct Bilirubin AST ALT Alkaline Phosphatase Troponin I High Sens Total Protein Albumin Lipase Urine Color Urine Appearance Urine pH Ur Specific [place] Urine Protein Urine Glucose (UA) Urine Ketones Urine Blood Urine Nitrite Ur Leukocyte Esterase Urine RBC Urine WBC Urine WBC Clumps Ur Squamous Epith Cells Urine Bacteria COVID-19 (JORDON) COVID-19 Clin Com Imaging Radiologist's Impressions: Impressions Chest X-Ray 10/21/21 10:57 IMPRESSION: Hypoexpanded lungs. Right basilar atelectasis and platelike atelectasis in the lingula. Increased interstitial markings question pneumonitis versus edema. Abdomen/Pelvis CT 10/21/21 13:22 IMPRESSION: No acute intra-abdominal process seen. Multiple midpole and lower pole radiopaque moderate size calculi within obstructive mid pole caliectasis. There is mild hydronephrosis from a right UVJ partially obstructive stone. There is a chronic cortical thinning midpole and upper pole right kidney. Radiopaque gravel was stones in the dependent portion of gallbladder but no wall thickening. Correlate with ultrasound. Lipomatous ileocecal valve with mild constipation. No proximal bowel obstruction. Normal appendix. There is no free air or free fluid. . Assessment and Plan (1) Pyelonephritis: Status: Acute (2) UTI (urinary tract infection): Qualifiers: Hematuria presence: without hematuria Urinary tract infection type: acute cystitis Qualified Code(s): N30.00 - Acute cystitis without hematuria Status: Acute (3) Type 2 diabetes mellitus with morbid obesity: Status: Acute (4) Ureteropelvic junction calculus: Status: Acute (5) Obesity (BMI 30-39.9): Status: Acute (6) Pure hypercholesterolemia: Status: Acute (7) GERD without esophagitis: Status: Acute 51/F with diabetes, HTN, obesity here witha cute pyelonephritis with righ partially obstructing UVJ stone 1./ Acute pyelonephritis -Cultures pending -Ceftriaxone for gram negative coverage 2/ UVJ stone--Uro consult 3/ Diabetes--resume home meds, add SSI and diabetic diet 4/ Clss 2 obesity with BMP of 37, weight loss advised to minimize health impact 5/ HTN--continue Coreg and Norvasc 6/ HLD--lipitor 7/Diabetic neuropathy--Gabapentin 8/ GERD--omeprazole 9/ Depression --Sertraline 10/ DVT prophylaxis--Heparin Quality Stroke Does the patient have a stroke diagnosis?: No VTE Prior VTE?: No VTE Risk Level:: Medical - moderate - high VTE Device Contraindication: Treatment Not Indicated VTE Drug Contraindication: N/A - Med Ordered
[2021-10-21] MEDS: amLODIPine Besylate 5 MG TABLET PO (17:01)
[2021-10-21] MEDS: 0.9 % Sodium Chloride Flush 3 ML SYRINGE IVFLUSH (17:04)
[2021-10-21 17:43] LABS: Glucose, Whole Blood 130 mg/dL (60-115)
--- NOTE | 2021-10-21 18:44 | PC.NURSE ---
Pt A&Ox3, oriented to the unit. no complaints of pain at this time, call espinal within reach. Will continue to monitor.
--- NOTE | 2021-10-21 18:55 | MHC.CM.PN ---
Addendum entered by Sigrid Zepeda 10/21/21 19:12: Pt is fully vaccinated with Moderna. Original Note: CM met with admitted patient with bed assignment pending in ED overflow unit. IMM reviewed and signed per protocol 10/21/2021@6740. No HCP on file. Pt states she has one and believes her PCP has a copy. HCP/step parent Virginia Lopez ([phone]). Pt lives with a roommate. Feels safe. Has a shower chair, cane and walker. Pt has RN services through [facility]. Kiko Ceja RN ([phone]). Pt states she has daily RN services for meds and insulin. Was having dressing changes for necrotizing fascitis in genital area. D/C plan is home with continued services. Referral placed in [facility]. Pt to arrange transportion home. CM to follow for d/c needs.
--- NOTE | 2021-10-21 19:45 | PC.NURSE ---
Assumed care of pt Pt resting on stretcher Deneis any pain Afebrile Will continue to monitor
[2021-10-21 19:56] LABS: Glucose, Whole Blood 221 mg/dL (60-115)
[2021-10-21] MEDS: Melatonin 3 MG TABLET PO (20:10)
[2021-10-21] MEDS: Insulin Lispro 100 UNIT/ML 3 ML VIAL SUBCUT (20:10)
[2021-10-21] MEDS: Atorvastatin Calcium 80 MG TABLET PO (20:11)
[2021-10-21] MEDS: Heparin Sodium,Porcine 5,000 UNIT/ML VIAL 5000 UNIT SUBCUT (20:12)
[2021-10-21] MEDS: Gabapentin 100 MG CAPSULE 200 MG PO (20:12)
[2021-10-21] MEDS: carvediloL 12.5 MG TABLET PO (20:13)
--- NOTE | 2021-10-21 20:30 | PC.NURSE ---
Pt medicated per DEC Pt tolerated well Pt unhooked from IV to go to bathroom Gait even and steady Pt back on bed Will continue to monitor
[2021-10-22] VITALS (10 sets, daily range): BP systolic 103–179; BP diastolic 57–92; PULSE 61–81; RESP 15–20; TEMP 36.1–37.2; O2SAT 91–95; BMI 37.2
--- NOTE | 2021-10-22 05:37 | PC.NURSE ---
Pt resting on strether wtih eyes closed Breathing even and unlabored NAD Will continue to monitor
[2021-10-22 06:47] LABS: MANUAL DIFF FLAG NO
[2021-10-22 06:50] LABS: Basophils Absolute Auto 0.1 X10*3/uL (0.0-0.2); Basophils Percent Auto 0.5 % (0-2); Eosinophils Absolute Auto 0.4 X10*3/uL (0.0-0.4); Eosinophils Percent Auto 3.4 % (0-4); Hematocrit 41.8 % (37.0-47.0); Hemoglobin 13.6 g/dl (12.0-16.0); Imm Gran Abs Auto 0.05 X10*3/uL (0.00-0.03); Imm Gran Pct Auto 0.5 % (0.0-0.4); Mean Corpuscular HGB Conc 32.5 g/dl (31.0-35.0); Mean Corpuscular Volume 92.3 fL (80.0-98.0); Monocytes Absolute Auto 0.5 X10*3/uL (0.1-1.2); Monocytes Percent Auto 4.6 % (2-11); Neutrophils Absolute Auto 7.8 x10*3/uL (2.0-8.3); Platelet Count 255 X10*3/uL (160-400); Red Blood Count 4.53 X10*6/uL (4.20-5.50); Red Cell Distribution Width 13.5 % (11.0-16.0); White Blood Count 10.8 X10*3/uL (4.8-10.8)
[2021-10-22 07:26] LABS: Glucose, Whole Blood 186 mg/dL (60-115)
[2021-10-22] MEDS: Insulin Lispro 100 UNIT/ML 3 ML VIAL SUBCUT (07:37)
--- NOTE | 2021-10-22 07:40 | PC.NURSE ---
Pt A&Ox3, no complaints of pain at this time, medicated as per [facility] orders for insulin coverage, 2 unit BG 186. Eating breakfast at this time, call espinal within reach, will continue to monitor.
[2021-10-22] MEDS: Heparin Sodium,Porcine 5,000 UNIT/ML VIAL 5000 UNIT SUBCUT ×2 (09:33→20:54)
[2021-10-22] MEDS: Insulin Glargine,Hum.rec.anlog 100 UNIT/ML 10 ML VIAL 12 UNIT SUBCUT (09:33)
[2021-10-22] MEDS: Aspirin Enteric Coated 81 MG TABLET.DR PO (09:34)
[2021-10-22] MEDS: Omeprazole 40 MG CAPSULE.DR PO (09:34)
[2021-10-22] MEDS: amLODIPine Besylate 5 MG TABLET PO (09:34)
[2021-10-22] MEDS: carvediloL 12.5 MG TABLET PO ×2 (09:34→20:55)
[2021-10-22] MEDS: Gabapentin 100 MG CAPSULE 200 MG PO ×2 (09:34→20:54)
[2021-10-22] MEDS: Multivitamin TABLET 1 TAB PO (09:34)
[2021-10-22] MEDS: 0.9 % Sodium Chloride Flush 3 ML SYRINGE IVFLUSH ×3 (09:36→20:57)
--- NOTE | 2021-10-22 10:02 | PC.NURSE ---
Pt medicated as per [facility] orders, A&Ox3, LCA, offers no complaints of pain at this time, states told her she would be DC'd today. Will continue to monitir.
--- NOTE | 2021-10-22 12:40 | PC.NURSE ---
Pt now NPO per MD request, pt is aware of plan for stent placement to kidney prioe to DC. A&Ox3, independent. Will contineu to monitor.
[2021-10-22 12:44] LABS: Glucose, Whole Blood 132 mg/dL (60-115)
[2021-10-22 13:28] LABS: Glucose, Whole Blood 129 mg/dL (60-115)
--- NOTE | 2021-10-22 14:04 | PC.NURSE ---
Spoke to FRANCIS Beasley, report given on Pt.
[2021-10-22] MEDS: cefTRIAXone sodium 1 GM in 0.9 % Sodium Chloride 50 ML IV (14:09)
[2021-10-22 16:11] LABS: Glucose, Whole Blood 119 mg/dL (60-115)
[2021-10-22] MEDS: levoFLOXacin/D5W 500 MG/100 ML PIGGYBACK 100 MG IV (16:14)
--- NOTE | 2021-10-22 16:49 | P.CNUR_ITS ---
History of Present Illness Consult details Consult date: 10/22/21 Narrative: Greer is a pleasant female Attended the emergency room due to urgency and frequency consistent with urinary tract infection Diagnosed with pyelonephritis Imaging shows stones on the right side up to 1/2 cm. Obstructing stone proximal right ureter. Recommendation for cystoscopy stent placement Review of Systems Constitutional: Constitutional: Reports as per HPI and Reports no additional constitutional complaints Cardiovascular: Cardiovascular: Reports as per HPI and Reports no additional cardiovascular complaints Respiratory: Respiratory: Reports as per HPI and Reports no additional respiratory complaints Gastrointestinal: Gastrointestinal: Reports as per HPI and Reports no additional gastrointestinal complaints Genitourinary: Genitourinary: Reports as per HPI Musculoskeletal: Musculoskeletal: Reports no additional musculoskeletal complaints and Reports as per HPI Neurologic: Reports system reviewed and no additional complaints, except as documented and Reports as per HPI PMFSH Past Medical History 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 Vitamin D deficiency Family History Family History Father Alzheimer's dementia Surgical History Surgical History History of arthroscopy of left knee (~12/2011) History of breast lump/mass excision (~03/2017) History of heart artery stent (~09/2015) Social History Social History Household Members: Friend(s) Housing: Apartment Do you presently have visiting nurse or other home services: Yes Alcohol intake: never Patient Tobacco Use Status: Current everyday Tobacco user Tobacco use type: Cigarette Cigarettes Per Day: 20 e-Cigarette/Vaping Use: Never Used Patient Interested in Nicotine Replacement: No (Refused) Second Hand Smoke Exposure: No Use of substances other than those prescribed or required for medical reasons: No Currently Displaying Signs/Symptoms of Drug Intoxication Withdrawal: No Have you been hit, kicked, punched, or otherwise hurt by someone within the past year? If so, by whom?: No Do you feel safe in your current relationship?: No Current Relationship Is there a partner from a previous relationship who is making you feel unsafe now?: No Advance Directives: No Advance Directives Information Provided: No Do you have thoughts of harming others: None Do you have a plan to hurt others: No Plan Recently lost weight without trying: No Eating poorly because of decreased appetite: No Nutrition Risks: No Nutritional Risk Patient : No : No Poor oral hygiene: No service: No Current occupational status: disabled [employer] Labs Allergies Allergy/AdvReac Type Severity Reaction Status Date / Time No Known Allergies Allergy Verified 10/14/21 15:29 Active Medications: Current Medications Acetaminophen (Acetaminophen 325 Mg Tablet) 650 mg PO Q6H PRN PRN Reason: Pain, Mild (Pain Scale 1-3) Albuterol Sulfate (Albuterol Sulfate 90 Mcg 8 Gm Inhaler) 1 puff INHALE QID PRN PRN Reason: shortness of breath or wheezing Amlodipine Besylate (Amlodipine Besylate 5 Mg Tablet) 5 mg PO DAILY [facility]; Protocol Last Admin: 10/22/21 09:34 Dose: 5 mg Documented by: Aspirin (Aspirin Enteric Coated 81 Mg Tablet.) 81 mg PO DAILY [facility] Last Admin: 10/22/21 09:34 Dose: 81 mg Documented by: Atorvastatin Calcium (Atorvastatin Calcium 80 Mg Tablet) 80 mg PO BEDTIME [facility] Last Admin: 10/21/21 20:11 Dose: 80 mg Documented by: Carvedilol (Carvedilol 12.5 Mg Tablet) 12.5 mg PO BID [facility]; Protocol Last Admin: 10/22/21 09:34 Dose: 12.5 mg Documented by: Ergocalciferol (Ergocalciferol (Vitamin D2) 1,250 Mcg Capsule) 1,250 mcg PO Mo DENNIS Gabapentin (Gabapentin 100 Mg Capsule) 200 mg PO TID [facility] Last Admin: 10/22/21 16:15 Dose: Not Given Documented by: Heparin Sodium (Porcine) (Heparin Sodium,Porcine 5,000 Unit/Ml Vial) 5,000 unit SUBCUT BID [facility] Last Admin: 10/22/21 09:33 Dose: 5,000 unit Documented by: Hydroxyzine HCl (Hydroxyzine Hcl 25 Mg Tablet) 25 mg PO DAILY PRN PRN Reason: anxiety Ceftriaxone Sodium 1 gm/ (Sodium Chloride) 50 mls @ 100 mls/hr IV Q24H [facility] Last Infusion: 10/22/21 15:31 Dose: Infused Documented by: Insulin Glargine (Insulin Glargine,Hum.Rec.Anlog 100 Unit/Ml 10 Ml Vial) 12 unit SUBCUT DAILY [facility] Last Admin: 10/22/21 09:33 Dose: 12 unit Documented by: Insulin Human Lispro (Insulin Lispro 100 Unit/Ml 3 Ml Vial) 0 unit SUBCUT QIDACHS [facility]; Protocol Last Admin: 10/22/21 16:16 Dose: Not Given Documented by: Magnesium Hydroxide (Milk Of Magnesia 30 Ml Oral.Susp) 30 ml PO DAILY PRN PRN Reason: Constipation Melatonin (Melatonin 3 Mg Tablet) 3 mg PO BEDTIME [facility] Last Admin: 10/21/21 20:10 Dose: 3 mg Documented by: Metformin HCl (Metformin Hcl 500 Mg Tablet) 500 mg PO BEDTIME [facility] Multivitamins/Vitamin C (Multivitamin Tablet) 1 tab PO DAILY [facility] Last Admin: 10/22/21 09:34 Dose: 1 tab Documented by: Nystatin (Nystatin Powder 15 Gm Bottle) 1 appl TOPICAL TID PRN; Protocol PRN Reason: Skin Irritation Omeprazole (Omeprazole 40 Mg Capsule.Dr) 40 mg PO DAILY [facility] Last Admin: 10/22/21 09:34 Dose: 40 mg Documented by: Ondansetron HCl (Ondansetron Hcl 4 Mg/2 Ml Vial) 4 mg IVPUSH Q8H PRN PRN Reason: Nausea and Vomiting Pharmacy Consult (Consult Rx Perform Med Rec) 1 each MISCELLANE ONCE PRN PRN Reason: Consult order Sodium Chloride (0.9 % Sodium Chloride Flush 3 Ml Syringe) 3 ml IVFLUSH QSHIFT [facility] Last Admin: 10/22/21 16:15 Dose: 3 ml Documented by: Zolpidem Tartrate (Zolpidem Tartrate 5 Mg Tablet) 5 mg PO BEDTIME PRN PRN Reason: Insomnia Home Medications Medication Instructions Recorded Confirmed Last Taken Type acetaminophen 325 mg tablet 325 mg PO BID PRN 09/18/20 10/21/21 10/20/21 History aspirin 81 mg tablet,delayed 81 mg PO DAILY 09/18/20 10/21/21 10/20/21 History release hydroxyzine HCl 25 mg tablet 25 mg PO DAILY PRN tab 05/10/21/21 10/20/21 History melatonin 3 mg tablet 3 mg PO BEDTIME 03/17/21 10/21/21 10/20/21 History multivitamin with minerals-ferrous 1 tab PO DAILY tab 03/17/21 10/21/21 10/20/21 History sulfate 4.5 mg iron tablet (One Daily Multivitamins with Minerals) albuterol sulfate 90 mcg/actuation 1 inh INHALATION QID PRN 10/21/21 10/21/21 10/20/21 History aerosol inhaler nystatin 100,000 unit/gram topical 1 applic TOPICAL TID PRN 10/21/21 10/21/21 10/20/21 History powder Physical Exam Vital Signs: Vital Signs: Last Vital Signs Temp 98.1 F 10/22/21 16:02 Pulse 66 10/22/21 16:02 Resp 16 10/22/21 16:02 BP 174/92 H 10/22/21 16:02 Pulse Ox 93 10/22/21 16:02 BMI result Body Mass Index 37.2 Const: General: cooperative, healthy appearing, comfortable and no acute distress Orientation/consciousness: patient oriented x3 HENMT: Face and sinus: Yes normal facial exam Mouth: moist mucous membranes Neck: Neck: Yes normal visual inspection, Yes full ROM and Yes trachea midline Chest: Chest palpation & inspection: normal inspection of the chest Resp: Effort & Inspection: normal respiratory effort, able to speak in complete sentences and no respiratory distress GI: Inspection: Yes normal to inspection Back/Spine/Pelvis: Cervical Spine: normal cervical lordosis Thoracic/Lumbar Spine: thoracic and lumbar spine normal to inspection Skin: General skin exam: no rashes or lesions noted Neuro: General: patient oriented x3, tone normal and moves all extremities Extrem: General: Yes normal to inspection and Yes capillary refill normal Results Labs Result diagrams: 10/22/21 06:34 10/21/21 11:48 Labs: Abnormal lab results 10/21/21 10/21/21 10/22/21 Range/Units 17:39 19:51 06:34 Immature Gran % (Auto) 0.5 H (0.0-0.4) % Lymph % (Auto) 19.0 L (20-40) % Abs Immat Gran (auto) 0.05 H (0.00-0.03) X10*3/uL POC Glucose 130 H 221 H (60-115) mg/dL 10/22/21 10/22/21 10/22/21 Range/Units 07:22 12:40 13:20 Immature Gran % (Auto) (0.0-0.4) % Lymph % (Auto) (20-40) % Abs Immat Gran (auto) (0.00-0.03) X10*3/uL POC Glucose 186 H 132 H 129 H (60-115) mg/dL 10/22/21 Range/Units 16:08 Immature Gran % (Auto) (0.0-0.4) % Lymph % (Auto) (20-40) % Abs Immat Gran (auto) (0.00-0.03) X10*3/uL POC Glucose 119 H (60-115) mg/dL Short CBC 10/22/21 Range/Units 06:34 WBC 10.8 (4.8-10.8) X10*3/uL Hgb 13.6 (12.0-16.0) g/dl Hct 41.8 (37.0-47.0) % Plt Count 255 (160-400) X10*3/uL Urine 10/21/21 Range/Units 11:33 Urine Color YELLOW Urine Appearance CLOUDY Urine pH 6.0 (5.0-8.0) Ur Specific [place] 1.025 (1.005-1.025) Urine Protein 2+ H (NEG-TRACE) MG/DL Urine Glucose (UA) NEG (NEG) MG/DL All other labs normal. Assessment and Plan (1) Pyelonephritis: Status: Acute (2) Ureteropelvic junction calculus: Status: Acute Cystoscopy, right retrograde, right stent placement Risks, benefits and alternatives to therapy were discussed. These include but are not limited to infection, bleeding, damage to local organs and tissues, need for further interventions. Anesthetic risks regarding cardiac arrhythmia, blood clots, and potential mortality were discussed. The patient understands the typical recovery time and the outpatient nature of the procedure. After consideration of these risks the patient gives full informed consent and they wish to move ahead with the procedure. Procedures Date of Service Date of Service: 10/22/21
--- NOTE | 2021-10-22 17:16 | HO.ANESPROP2 ---
HPI - Anesthesia Eval Consult details Narrative: 51 F for Cysto 2015 cardiac stent . cold last week . symptoms resolved as per patient , afebrile. h/o necrotizing fascitis . B/L UE skin leisions , following up with tafe lecturer . 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) Knee pain (Acute) Past Medical History 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 Vitamin D deficiency Family History Family History Father Alzheimer's dementia Family history of problems with anesthesia: No Surgical History Surgical History History of arthroscopy of left knee (~12/2011) History of breast lump/mass excision (~03/2017) History of heart artery stent (~09/2015) History of Problems with Anesthesia: No Social History Social History Household Members: Friend(s) Housing: Apartment Do you presently have visiting nurse or other home services: Yes Alcohol intake: never Patient Tobacco Use Status: Current everyday Tobacco user Tobacco use type: Cigarette Cigarettes Per Day: 20 e-Cigarette/Vaping Use: Never Used Patient Interested in Nicotine Replacement: No (Refused) Second Hand Smoke Exposure: No Use of substances other than those prescribed or required for medical reasons: No Currently Displaying Signs/Symptoms of Drug Intoxication Withdrawal: No Have you been hit, kicked, punched, or otherwise hurt by someone within the past year? If so, by whom?: No Do you feel safe in your current relationship?: No Current Relationship Is there a partner from a previous relationship who is making you feel unsafe now?: No Advance Directives: No Advance Directives Information Provided: No Do you have thoughts of harming others: None Do you have a plan to hurt others: No Plan Recently lost weight without trying: No Eating poorly because of decreased appetite: No Nutrition Risks: No Nutritional Risk Patient : No : No Poor oral hygiene: No service: No Current occupational status: [employer] Allergies Allergy/AdvReac Type Severity Reaction Status Date / Time No Known Allergies Allergy Verified 10/14/21 15:29 Active Medications: Current Medications Acetaminophen (Acetaminophen 325 Mg Tablet) 650 mg PO Q6H PRN PRN Reason: Pain, Mild (Pain Scale 1-3) Albuterol Sulfate (Albuterol Sulfate 90 Mcg 8 Gm Inhaler) 1 puff INHALE QID PRN PRN Reason: shortness of breath or wheezing Amlodipine Besylate (Amlodipine Besylate 5 Mg Tablet) 5 mg PO DAILY [facility]; Protocol Last Admin: 10/22/21 09:34 Dose: 5 mg Documented by: Aspirin (Aspirin Enteric Coated 81 Mg Tablet.) 81 mg PO DAILY [facility] Last Admin: 10/22/21 09:34 Dose: 81 mg Documented by: Atorvastatin Calcium (Atorvastatin Calcium 80 Mg Tablet) 80 mg PO BEDTIME [facility] Last Admin: 10/21/21 20:11 Dose: 80 mg Documented by: Carvedilol (Carvedilol 12.5 Mg Tablet) 12.5 mg PO BID [facility]; Protocol Last Admin: 10/22/21 09:34 Dose: 12.5 mg Documented by: Ergocalciferol (Ergocalciferol (Vitamin D2) 1,250 Mcg Capsule) 1,250 mcg PO Mo DENNIS Gabapentin (Gabapentin 100 Mg Capsule) 200 mg PO TID [facility] Last Admin: 10/22/21 16:15 Dose: Not Given Documented by: Heparin Sodium (Porcine) (Heparin Sodium,Porcine 5,000 Unit/Ml Vial) 5,000 unit SUBCUT BID [facility] Last Admin: 10/22/21 09:33 Dose: 5,000 unit Documented by: Hydroxyzine HCl (Hydroxyzine Hcl 25 Mg Tablet) 25 mg PO DAILY PRN PRN Reason: anxiety Ceftriaxone Sodium 1 gm/ (Sodium Chloride) 50 mls @ 100 mls/hr IV Q24H [facility] Last Infusion: 10/22/21 15:31 Dose: Infused Documented by: Insulin Glargine (Insulin Glargine,Hum.Rec.Anlog 100 Unit/Ml 10 Ml Vial) 12 unit SUBCUT DAILY [facility] Last Admin: 10/22/21 09:33 Dose: 12 unit Documented by: Insulin Human Lispro (Insulin Lispro 100 Unit/Ml 3 Ml Vial) 0 unit SUBCUT QIDACHS [facility]; Protocol Last Admin: 10/22/21 16:16 Dose: Not Given Documented by: Magnesium Hydroxide (Milk Of Magnesia 30 Ml Oral.Susp) 30 ml PO DAILY PRN PRN Reason: Constipation Melatonin (Melatonin 3 Mg Tablet) 3 mg PO BEDTIME [facility] Last Admin: 10/21/21 20:10 Dose: 3 mg Documented by: Metformin HCl (Metformin Hcl 500 Mg Tablet) 500 mg PO BEDTIME [facility] Multivitamins/Vitamin C (Multivitamin Tablet) 1 tab PO DAILY [facility] Last Admin: 10/22/21 09:34 Dose: 1 tab Documented by: Nystatin (Nystatin Powder 15 Gm Bottle) 1 appl TOPICAL TID PRN; Protocol PRN Reason: Skin Irritation Omeprazole (Omeprazole 40 Mg Capsule.Dr) 40 mg PO DAILY [facility] Last Admin: 10/22/21 09:34 Dose: 40 mg Documented by: Ondansetron HCl (Ondansetron Hcl 4 Mg/2 Ml Vial) 4 mg IVPUSH Q8H PRN PRN Reason: Nausea and Vomiting Pharmacy Consult (Consult Rx Perform Med Rec) 1 each MISCELLANE ONCE PRN PRN Reason: Consult order Sodium Chloride (0.9 % Sodium Chloride Flush 3 Ml Syringe) 3 ml IVFLUSH QSHIFT [facility] Last Admin: 10/22/21 16:15 Dose: 3 ml Documented by: Zolpidem Tartrate (Zolpidem Tartrate 5 Mg Tablet) 5 mg PO BEDTIME PRN PRN Reason: Insomnia Home Medications Medication Instructions Recorded Confirmed Last Taken Type acetaminophen 325 mg tablet 325 mg PO BID PRN 09/18/20 10/21/21 10/20/21 History aspirin 81 mg tablet,delayed 81 mg PO DAILY 09/18/20 10/21/21 10/20/21 History release hydroxyzine HCl 25 mg tablet 25 mg PO DAILY PRN tab 03/17/21 10/21/21 10/20/21 History melatonin 3 mg tablet 3 mg PO BEDTIME 03/17/21 10/21/21 10/20/21 History multivitamin with minerals-ferrous 1 tab PO DAILY tab 03/17/21 10/21/21 10/20/21 History sulfate 4.5 mg iron tablet (One Daily Multivitamins with Minerals) albuterol sulfate 90 mcg/actuation 1 inh INHALATION QID PRN 10/21/21 10/21/21 10/20/21 History aerosol inhaler nystatin 100,000 unit/gram topical 1 applic TOPICAL TID PRN 10/21/21 10/21/21 10/20/21 History powder Exam Exam Date and Time: October 22, [id number] Height,Weight and Vital Signs: Height 5 ft 3 in Weight 95.254 kg Last Vital Signs Temp 98.1 F 10/22/21 16:02 Pulse 66 10/22/21 16:02 Resp 16 10/22/21 16:02 BP 174/92 H 10/22/21 16:02 Pulse Ox 93 10/22/21 16:02 Pertinent Lab Results Pertinent Lab Results: Laboratory Tests 10/21/21 10/21/21 10/21/21 11:33 11:33 11:48 WBC 14.2 H RBC 4.72 Hgb 14.1 Hct 43.1 MCV 91.3 MCH 29.9 MCHC 32.7 RDW 13.2 Plt Count 259 MPV 11.1 Immature Gran % (Auto) 0.6 H Neut % (Auto) 84.8 H Lymph % (Auto) 9.8 L Mower % (Auto) 2.7 Eos % (Auto) 1.7 Baso % (Auto) 0.4 Lymph # (Auto) 1.4 Mower # (Auto) 0.4 Eos # (Auto) 0.2 Baso # (Auto) 0.1 Abs Immat Gran (auto) 0.08 H Absolute Neuts (auto) 12.1 H Absolute Nucleated RBC 0.000 Nucleated RBC % (auto) 0.0 VBG pH VBG pCO2 VBG pO2 VBG HCO3 VBG O2 Saturation VBG Base Excess Sodium Potassium Chloride Carbon Dioxide Anion Gap BUN Creatinine Estim Creat Clear Calc Estimated GFR POC Glucose Random Glucose Lactic Acid Calcium Magnesium Total Bilirubin Direct Bilirubin AST ALT Alkaline Phosphatase Troponin I High Sens Total Protein Albumin Lipase Urine Color YELLOW Urine Appearance CLOUDY Urine pH 6.0 Ur Specific [place] 1.025 Urine Protein 2+ H Urine Glucose (UA) NEG Urine Ketones NEG Urine Blood 2+ H Urine Nitrite NEG Ur Leukocyte Esterase 1+ H Urine RBC 5-9 H Urine WBC TNTC H Urine WBC Clumps NOTED Ur Squamous Epith Cells 1+ Urine Bacteria 1+ COVID-19 (JORDON) Negative COVID-19 Clin Com See Note 10/21/21 10/21/21 10/21/21 11:48 11:48 11:50 WBC RBC Hgb Hct MCV MCH MCHC RDW Plt Count MPV Immature Gran % (Auto) Neut % (Auto) Lymph % (Auto) Mower % (Auto) Eos % (Auto) Baso % (Auto) Lymph # (Auto) Mower # (Auto) Eos # (Auto) Baso # (Auto) Abs Immat Gran (auto) Absolute Neuts (auto) Absolute Nucleated RBC Nucleated RBC % (auto) VBG pH VBG pCO2 VBG pO2 VBG HCO3 VBG O2 Saturation VBG Base Excess Sodium 142 Potassium 4.0 Chloride 106 Carbon Dioxide 26 Anion Gap 14 BUN 22 H Creatinine 0.86 Estim Creat Clear Calc 83.0 Estimated GFR > 60 POC Glucose Random Glucose 217 H Lactic Acid 1.4 Calcium 9.9 Magnesium 1.7 Total Bilirubin 0.4 Direct Bilirubin 0.2 AST 12 ALT 17 Alkaline Phosphatase 79 D Troponin I High Sens 5.8 Total Protein 7.7 Albumin 4.5 Lipase 19 Urine Color Urine Appearance Urine pH Ur Specific [place] Urine Protein Urine Glucose (UA) Urine Ketones Urine Blood Urine Nitrite Ur Leukocyte Esterase Urine RBC Urine WBC Urine WBC Clumps Ur Squamous Epith Cells Urine Bacteria COVID-19 (JORDON) COVID-19 Clin Com 10/21/21 10/21/21 10/21/21 11:55 17:39 19:51 WBC RBC Hgb Hct MCV MCH MCHC RDW Plt Count MPV Immature Gran % (Auto) Neut % (Auto) Lymph % (Auto) Mower % (Auto) Eos % (Auto) Baso % (Auto) Lymph # (Auto) Mower # (Auto) Eos # (Auto) Baso # (Auto) Abs Immat Gran (auto) Absolute Neuts (auto) Absolute Nucleated RBC Nucleated RBC % (auto) VBG pH 7.36 VBG pCO2 45 VBG pO2 49 VBG HCO3 25 VBG O2 Saturation 73.0 VBG Base Excess -0.2 Sodium Potassium Chloride Carbon Dioxide Anion Gap BUN Creatinine Estim Creat Clear Calc Estimated GFR POC Glucose 130 H 221 H Random Glucose Lactic Acid Calcium Magnesium Total Bilirubin Direct Bilirubin AST ALT Alkaline Phosphatase Troponin I High Sens Total Protein Albumin Lipase Urine Color Urine Appearance Urine pH Ur Specific [place] Urine Protein Urine Glucose (UA) Urine Ketones Urine Blood Urine Nitrite Ur Leukocyte Esterase Urine RBC Urine WBC Urine WBC Clumps Ur Squamous Epith Cells Urine Bacteria COVID-19 (JORDON) COVID-19 [employer] 10/22/21 10/22/21 10/22/21 06:34 07:22 12:40 WBC 10.8 RBC 4.53 Hgb 13.6 Hct 41.8 MCV 92.3 MCH 30.0 MCHC 32.5 RDW 13.5 Plt Count 255 MPV 11.0 Immature Gran % (Auto) 0.5 H Neut % (Auto) 72.0 Lymph % (Auto) 19.0 L Mower % (Auto) 4.6 Eos % (Auto) 3.4 Baso % (Auto) 0.5 Lymph # (Auto) 2.0 Mower # (Auto) 0.5 Eos # (Auto) 0.4 Baso # (Auto) 0.1 Abs Immat Gran (auto) 0.05 H Absolute Neuts (auto) 7.8 Absolute Nucleated RBC 0.000 Nucleated RBC % (auto) 0.0 VBG pH VBG pCO2 VBG pO2 VBG HCO3 VBG O2 Saturation VBG Base Excess Sodium Potassium Chloride Carbon Dioxide Anion Gap BUN Creatinine Estim Creat Clear Calc Estimated GFR POC Glucose 186 H 132 H Random Glucose Lactic Acid Calcium Magnesium Total Bilirubin Direct Bilirubin AST ALT Alkaline Phosphatase Troponin I High Sens Total Protein Albumin Lipase Urine Color Urine Appearance Urine pH Ur Specific [place] Urine Protein Urine Glucose (UA) Urine Ketones Urine Blood Urine Nitrite Ur Leukocyte Esterase Urine RBC Urine WBC Urine WBC Clumps Ur Squamous Epith Cells Urine Bacteria COVID-19 (JORDON) COVID-19 [facility] Com 10/22/21 10/22/21 13:20 16:08 WBC RBC Hgb Hct MCV MCH MCHC RDW Plt Count MPV Immature Gran % (Auto) Neut % (Auto) Lymph % (Auto) Mower % (Auto) Eos % (Auto) Baso % (Auto) Lymph # (Auto) Mower # (Auto) Eos # (Auto) Baso # (Auto) Abs Immat Gran (auto) Absolute Neuts (auto) Absolute Nucleated RBC Nucleated RBC % (auto) VBG pH VBG pCO2 VBG pO2 VBG HCO3 VBG O2 Saturation VBG Base Excess Sodium Potassium Chloride Carbon Dioxide Anion Gap BUN Creatinine Estim Creat Clear Calc Estimated GFR POC Glucose 129 H 119 H Random Glucose Lactic Acid Calcium Magnesium Total Bilirubin Direct Bilirubin AST ALT Alkaline Phosphatase Troponin I High Sens Total Protein Albumin Lipase Urine Color Urine Appearance Urine pH Ur Specific [place] Urine Protein Urine Glucose (UA) Urine Ketones Urine Blood Urine Nitrite Ur Leukocyte Esterase Urine RBC Urine WBC Urine WBC Clumps Ur Squamous Epith Cells Urine Bacteria COVID-19 (JORDON) COVID-19 Clin Com Airway Mallampati Class: II Neck ROM: Full Denture: Upper and Lower Partial: Lower Loose/Missing/Broken Teeth: Yes Assessment and Plan Assessment Anesthesia Assessment: Anesthesia Plan Discussed Final Anesthetic Review Family History of Problems with Anesthesia: No History of Problems with Anesthesia: No NPO: Yes ASA Class: III Final Preanesthetic Review: Anes Risks/Benef Reviewed Patient Risk: High Procedure Risk: Intermediate Anesthetic Plan Anesthetic Plan: GA Disposition: Standard PACU
--- NOTE | 2021-10-22 17:51 | MHC.SHP ---
Pre-Procedural Eval Section A Date of Service: 10/22/21 The patient is an INPATIENT: Yes Changes since office visit: No Cold of Flu in the past 2 weeks, No New Medical Problems, No Changes in Medication and No Patient answered all questions The History & Physical has been completed within 30 days and I have reviewed it.: Yes Section B Chief Complaint: Pyelonephritis Allergies: Allergies Allergy/AdvReac Type Severity Reaction Status Date / Time No Known Allergies Allergy Verified 10/14/21 15:29 Plan Diagnosis/Plan: Unchanged (Right UPJ stone, cystoscopy right retrograde stent placement) I have reviewed the history and physical and performed a pertinent physical examination on my patient. No changes have occurred unless specified.
[2021-10-22 18:14] LABS: Glucose, Whole Blood 124 mg/dL (60-115)
--- NOTE | 2021-10-22 18:23 | PC.NURSE ---
Assumed care at 1500; Admission assessmnet completed by this RN. Pt a/o x3, only c/o RLL pain, refused tylenol. POC 119, SBP elevated 170's, all other VSS. Dr. Fried made aware, no new orders. Pt NPO for Right stent placement. Report given to NARROW FABRIC CALENDERER. Pt now trx to [facility] post procedure. NARROW FABRIC CALENDERER to give report to [facility]-RN.
--- NOTE | 2021-10-22 18:26 | W.PM.OPN ---
Operative Note Operative Note Date of Service: 10/22/21 Narrative: PreOperative Diagnosis: Right UPJ stone Post Operative Diagnosis: Right UPJ stone Procedure: Cystoscopy, right retrograde, right stent placement Surgeon: Dr Leroy Farr Anesthesia: Sedation Indications for procedure: 51-year-old female. Presents to emergency room with pyelonephritis. Imaging shows stones in right kidney with right UPJ stone. Recommendation for stenting to allow renal drainage. Background of a brittle diabetic with prior Garima's gangrene. Procedure: After informed consent was verified the patient was brought to the operating room and placed in a supine position. Anesthesia was administered per protocol. Patient was placed in modified dorsal lithotomy position and prepped and draped in sterile fashion. Safety pause time-out was performed. Antibiotics being given. Twenty-two Italian cystoscope inserted per urethra. Bladder was emptied. Some discoloration of urine consistent with pyelonephritis. Retrograde examination performed on right side with filling defects seen proximal portion of the ureter. Sensor guidewire placed up to the renal pelvis. Remaining catheter placed over the wire into the renal pelvis. Debris and discolored urine descended around the wire indicative of potential pyelonephritis. 6 Italian by 24 cm double-J stent placed with good coil seen in the renal pelvis and in the bladder. Bladder emptied Patient tolerated procedure well and was transferred in stable condition to the recovery area. Pathology: None Drains: Six Italian by 24 cm double-J catheter
[2021-10-22 19:42] LABS: Glucose, Whole Blood 137 mg/dL (60-115)
[2021-10-22] MEDS: Atorvastatin Calcium 80 MG TABLET PO (20:54)
[2021-10-22] MEDS: Melatonin 3 MG TABLET PO (20:54)
[2021-10-23 03:29] VITALS: BP 124/64; PULSE 62; RESP 20; TEMP 37; O2SAT 92
[2021-10-23 07:20] LABS: Glucose, Whole Blood 154 mg/dL (60-115)
[2021-10-23 07:22] VITALS: BP 120/62; PULSE 69; RESP 18; TEMP 36.7; O2SAT 93
--- NOTE | 2021-10-23 07:36 | HO.POSTANES ---
Post Anesthesia Evaluation Post Anesthesia Evaluation Vital Signs: Vital Signs Temp Pulse Resp BP Pulse Ox 10/23/21 07:22 98.0 F 69 18 120/62 93 10/23/21 03:29 98.6 F 62 20 124/64 92 10/22/21 23:03 99 F 75 18 103/57 L 91 L 10/22/21 20:55 67 126/58 L Anesthesia: General LMA Mental Status: Awake Pain Control: Satisfactory Nausea/Vomiting: None Hydration: Adequate Anesthesia-Related Issues: No Anes. Related Issues
[2021-10-23] MEDS: Omeprazole 40 MG CAPSULE.DR PO (07:58)
[2021-10-23] MEDS: 0.9 % Sodium Chloride Flush 3 ML SYRINGE IVFLUSH (07:58)
[2021-10-23] MEDS: Aspirin Enteric Coated 81 MG TABLET.DR PO (07:58)
[2021-10-23] MEDS: Gabapentin 100 MG CAPSULE 200 MG PO (07:58)
[2021-10-23] MEDS: Insulin Lispro 100 UNIT/ML 3 ML VIAL SUBCUT ×2 (07:58→11:33)
[2021-10-23 07:59] VITALS: BP 120/62; PULSE 69
[2021-10-23] MEDS: Multivitamin TABLET 1 TAB PO (07:59)
[2021-10-23] MEDS: Heparin Sodium,Porcine 5,000 UNIT/ML VIAL 5000 UNIT SUBCUT (07:59)
[2021-10-23] MEDS: amLODIPine Besylate 5 MG TABLET PO (07:59)
[2021-10-23] MEDS: carvediloL 12.5 MG TABLET PO (07:59)
[2021-10-23] MEDS: Insulin Glargine,Hum.rec.anlog 100 UNIT/ML 10 ML VIAL 12 UNIT SUBCUT (08:00)
[2021-10-23 10:50] VITALS: BP 143/83; PULSE 67; RESP 20; TEMP 36.9; O2SAT 93
[2021-10-23 11:03] LABS: Glucose, Whole Blood 223 mg/dL (60-115)
--- NOTE | 2021-10-23 11:32 | P.DS_ITS ---
DS: Providers Provider Date of Service: 10/23/21 Date of admission: 10/21/21 15:16 Primary care physician: Rancho Duarte MD Consults: 10/21/21 15:20 Consult to Urology Routine Consulting Provider: Leroy Farr Reason for consultation: kidney stone Has provider been notified: No DS: Diagnosis Discharge Diagnosis (1) Pyelonephritis: Status: Acute (2) Ureteropelvic junction calculus: Status: Acute DS: Summary Hospital Course Hospital Course: Chief Complaint: Abdominal pain, right 51 female with history of diabetes that is managed with insulin, CKD, history necrotizing fasciites of perineal area, HTN who presents with lower abdominal pain, of moderate intensity and right flank pain f about? 610, she has had chills, no nausea of vomitting, CT of abdomen and pelvis shows a?mild hydronephrosis from a right UVJ partially obstructive stone, renla function is normal, UA is positive for UTI, WBC is 14K,? doesn't meet sepsis criteria. Hospital course: Patient was not septic. She was started on IV ceftriaxone for Pyelonephritis. On second day she underwent cystoscopy with right stent by Dr. Farr. Her symptoms have resolved. Urine culture is growing Seratia that is sensitive to Ceftriaxone and therefore will treat for 10 days. She will follow up with Dr. Farr in couple weeks for stent removal. Time Spent with Patient Time attestation: Total time spent providing and/or coordinating discharge services: Discharge coordination time: Greater than 30 minutes Quality: Stroke Does the patient have a stroke diagnosis?: No Physical Exam Verdana 4l Vital Signs: Verdana 4d Verdana 4d Vital Signs: Verdana 4d Verdana 4Bd Last Vital Signs Verdana 4d Numerical Control Operator New 4d Numerical Control Operator New 4d Temp 98.5 F 10/23/21 10:50 Numerical Control Operator New 4d Pulse 67 10/23/21 10:50 Numerical Control Operator NewNew 4d Resp 20 10/23/21 10:50 BP 143/83 H 10/23/21 10:50 Pulse Ox 93 10/23/21 10:50 BMI result Body Mass Index 37.2 General: AO X 3, no acute distress Resp: CTA bilateral CVS: S1,S2,RRR GI: +BS, NT, no distention Skin: No rash Neuro: motor grossly intact Psych: appropriate affect DS: Data Data Completed and Pending Labs on day of discharge: Laboratory Results - last 24 hr 10/22/21 10/22/21 10/22/21 12:40 13:20 16:08 POC Glucose 132 H 129 H 119 H 10/22/21 10/22/21 10/23/21 17:43 19:34 06:59 POC Glucose 124 H 137 H 154 H 10/23/21 10:50 POC Glucose 223 H Preliminary micro results at discharge 10/21/21 12:00 Blood Culture - Preliminary Blood - Venous No growth after 24 hours. 10/21/21 11:49 Blood Culture - Preliminary Blood - Venous No growth after 24 hours. Discharge Plan Discharge Anticipated Discharge Date/Time: 10/23/21 11:16 Patient Disposition: Home, Self-Care Discharge Diagnosis: UTI, kidney stone Pyelonephritis Referrals: [facility] [Outside] - 1 Week Rancho Duarte MD [Primary Care Provider] - 1 Week Discharge Medications: New cefuroxime axetil 500 mg tablet 500 mg PO BID 8 Days Qty: 16 RF: 0 Continued sertraline 100 mg tablet 100 mg PO DAILY Qty: 30 RF: 3 ergocalciferol (vitamin D2) [Vitamin D2] 1,250 mcg (50,000 unit) capsule 1,250 mcg PO QWEEK Qty: 4 RF: 5 omeprazole 40 mg capsule,delayed release(DR/EC) 40 mg PO DAILY Qty: 30 RF: 3 carvedilol 12.5 mg tablet 12.5 mg PO BID Qty: 60 RF: 3 atorvastatin 80 mg tablet 80 mg PO DAILY Qty: 30 RF: 3 gabapentin 100 mg capsule 200 mg PO TID Qty: 180 RF: 3 metformin 500 mg tablet 500 mg PO BEDTIME Qty: 30 RF: 3 Humulin N NPH Insulin KwikPen 100 unit/mL (3 mL) insulin pen 15 unit subcut QAM 30 Days Qty: 6 RF: 3 nystatin 100,000 unit/gram powder 1 applic topical TID PRN (Reason: Skin Irritation) RF: 0 albuterol sulfate 90 mcg/actuation HFA aerosol inhaler 1 inh inhalation QID PRN (Reason: shortness of breath or wheezing) RF: 0 acetaminophen 325 mg tablet 325 mg PO BID PRN (Reason: Pain) RF: 0 aspirin 81 mg tablet,delayed release (DR/EC) 81 mg PO DAILY RF: 0 amlodipine [Norvasc] 5 mg tablet 5 mg PO DAILY Qty: 30 RF: 8 melatonin 3 mg tablet 3 mg PO BEDTIME RF: 0 One Daily Multi-Vit w-Mineral 4.5 mg iron tablet 1 tab PO DAILY RF: 0 hydroxyzine HCl 25 mg tablet 25 mg PO DAILY PRN (Reason: anxiety) RF: 0 Discharge Orders: Discharge Order (Routine); Ordered 10/23/21 Ordered By: Alexander Fried Diet: advance to usual diet Activity on Discharge: As tolerated Stand Alone Forms: Patient Portal Discharge page Care Plan Goals: full resolution of infection Health Concerns: kidney stone, UTI Plan of Treatment: Take Ceftin as recommended and follow up with your Doctor and follow up with Dr. Farr Assessment: As above
[2021-10-23] MEDS: cefTRIAXone sodium 1 GM in 0.9 % Sodium Chloride 50 ML IV (11:33)
--- NOTE | 2021-10-23 11:34 | MHC.CM.PN ---
pt dcd home with resumption of aveanna vna p;t has own transport home
--- NOTE | 2021-10-23 11:46 | MHC.CM.PN ---
dr medina does not feel vna is jose antonio candelario notified
--- NOTE | 2021-10-23 13:14 | P.F2F_ITS ---
Service Date Service Date: 10/23/21 Reasons for Services Signs and symptoms assessed: care of necrotizing fasicitis Reason for mcfp: wound care and medication treatment Homebound: Leaving the home is medically contraindicated at this time without the asist of a device and/or another person due th the listed conditions above and below. Homebound supporting statement: homebound due to post hospitalization weakness and therefore needs the assistance of another person Certification: Based on the above findings, I certify that this patient is confined to the home and needs intermittent mcfp care, physical therapy and/or speech therapy, or continues to need occupational therapy. The patient is under my care, and I have initiated the establishment of the plan of care. The patient will be followed by a physician who will periodically review the plan of care.
== END 2021-10-23 12:50 | disposition home or self-care (01) | DRG 660 ==
LOC: HO.ED 14:22 → HO.EDOVER 15:51 → HO.IMC 10-22 18:05
PROVIDERS: Urology; Admitting Provider Internal Medicine; Emergency Provider Emergency Medicine; PCP Internal Medicine; Visit Provider Internal Medicine
PROC: 0T768DZ Dilation of Right Ureter with Intraluminal Device, Via Natural or Artificial Opening Endoscopic (ICD-10-PCS; principal; 2021-10-22 16:45)
DX: N20.1 Calculus of ureter (principal); N10 Acute pyelonephritis; N39.0 Urinary tract infection, site not specified; I12.0 Hypertensive chronic kidney disease with stage 5 chronic kidney disease or end stage renal disease; N18.9 Chronic kidney disease, unspecified; E11.22 Type 2 diabetes mellitus with diabetic chronic kidney disease; I25.10 Atherosclerotic heart disease of native coronary artery without angina pectoris; F17.210 Nicotine dependence, cigarettes, uncomplicated; E66.9 Obesity, unspecified; K21.9 Gastro-esophageal reflux disease without esophagitis; E11.40 Type 2 diabetes mellitus with diabetic neuropathy, unspecified; F32.A Depression, unspecified; E78.00 Pure hypercholesterolemia, unspecified; Z68.37 Body mass index [BMI] 37.0-37.9, adult; Z71.6 Tobacco abuse counseling; Z20.822 Contact with and (suspected) exposure to COVID-19; Z79.4 Long term (current) use of insulin; Z79.82 Long term (current) use of aspirin; Z79.84 Long term (current) use of oral hypoglycemic drugs; Z79.899 Other long term (current) drug therapy
CPT/HCPCS: 36415; 71045; 74177; 80048; 80076; 81001; 82803; 82947; 83605; 83690; 83735; 84484; 85025; 87040; 87086; 87088; 87186; 87635; 93005; 94640; 96361; 96365; 96375; 99285; C1758; C1769; C2617; J0696; J1956; J2270; J2405; J3010; Q9967

== ENCOUNTER → 2021-11-05 09:41 | Outpatient (BNVA) | payer MEDICARE, MEDICAID, SELFPAY | PROVIDERS: PCP Internal Medicine; Visit Provider Urology | DX: Z13.89 Encounter for screening for other disorder (principal) | CPT/HCPCS: Q3014 ==

== ENCOUNTER 2021-12-08 06:16 | Day surgery (SDC) | payer MEDICARE, MEDICAID, SELFPAY ==
[2021-12-02 09:57] VITALS: BMI 36.4
[2021-12-02 13:45] VITALS: BMI 36.4
--- NOTE | 2021-12-05 09:47 | P.CONAN_ITS ---
Documented by User: Pearl Capone NP 12/05/21 09:48 HPI - Anesthesia Eval Consult details Narrative: 51yo F for Right Cystoscopy, Ureteroroscopy, Retro, Laser with possible stent PCP cleared PMFSH Active Problems Active Problems: All Active Problems (Updated 12/04/21 @ 14:52 by Rancho Duarte MD) Preop exam for internal medicine (Acute) Knee pain (Acute) Cough (Acute) UTI (urinary tract infection) (Acute) Nephrolithiasis (Acute) Depression (Acute) Vitamin D deficiency (Acute) Coronary artery disease (Acute) Benign essential hypertension (Acute) Intertrigo (Acute) Type 2 diabetes mellitus with diabetic chronic kidney disease (Acute) 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) Past Medical History Medical History (Updated 12/04/21 @ 14:52 by Rancho Duarte MD) Benign essential hypertension Coronary artery disease COVID-19 vaccine series completed Depression 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 GERD without esophagitis High blood pressure Intertrigo Myocardial infarction Necrotizing fasciitis Nephrolithiasis Obesity (BMI 30-39.9) Pure hypercholesterolemia 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 Vitamin D deficiency Family History Family History Father Alzheimer's dementia Family history of problems with anesthesia: No Surgical History Surgical History History of arthroscopy of left knee (~12/2011) History of breast lump/mass excision (~03/2017) History of heart artery stent (~09/2015) History of surgery History of surgery Hx of cystoscopy History of Problems with Anesthesia: No Social History Social History Household Members: Friend(s) Housing: Apartment Do you presently have visiting nurse or other home services: Yes Alcohol intake: never Patient Tobacco Use Status: Current everyday Tobacco user Tobacco use type: Cigarette Cigarettes Per Day: 10 e-Cigarette/Vaping Use: Never Used Second Hand Smoke Exposure: No Use of substances other than those prescribed or required for medical reasons: No Have you been hit, kicked, punched, or otherwise hurt by someone within the past year? If so, by whom?: No Are you DNR?: No Advance Directives: No Advance Directives Information Provided: Yes Advance Directives on File: No Recently lost weight without trying: No Eating poorly because of decreased appetite: No Nutrition Risks: No Nutritional Risk service: No Current occupational status: disabled Cognitive needs: No Hearing needs: No Vision needs: No Meds Allergies Allergy/AdvReac Type Severity Reaction Status Date / Time No Known Allergies Allergy Verified 12/04/21 14:19 Home Medications Medication Instructions Recorded Confirmed Last Taken Type acetaminophen 325 325 mg PO BID 09/18/20 12/04/21 10/20/21 History mg tablet PRN aspirin 81 mg 81 mg PO DAILY 09/18/20 12/04/21 12/07/21 History tablet,delayed release hydroxyzine HCl 25 mg PO DAILY 03/17/21 12/04/21 10/20/21 History 25 mg tablet PRN tab melatonin 3 mg 3 mg PO BEDTIME 03/17/21 12/04/21 10/20/21 History tablet multivitamin with 1 tab PO DAILY 03/17/21 12/04/21 10/20/21 History minerals-ferrous tab sulfate 4.5 mg iron tablet (One Daily Multivitamins with Minerals) albuterol sulfate 1 inh INHALATION 10/21/21 12/04/21 10/20/21 History 90 mcg/actuation QID PRN aerosol inhaler nystatin 100,000 1 applic TOPICAL 10/21/21 12/04/21 10/20/21 History unit/gram topical TID PRN powder Exam Exam Date and Time: December 05, 2021 0947 Height,Weight and Vital Signs: Height 5 ft 3.5 in Weight 94.801 kg Pertinent Lab Results Pertinent Lab Results: Laboratory Tests 10/21/21 10/22/21 11:48 06:34 WBC 10.8 Hgb 13.6 Hct 41.8 Plt Count 255 Sodium 142 Potassium 4.0 Chloride 106 Carbon Dioxide 26 BUN 22 H Creatinine 0.86 Assessment and Plan Assessment Anesthesia Assessment: Chart Reviewed Final Anesthetic Review Family History of Problems with Anesthesia: No History of Problems with Anesthesia: No Documented by User: Sarah Grady MD 12/08/21 09:19 [facility] Active Problems Active Problems: All Active Problems (Updated 12/04/21 @ 14:52 by Rancho Duarte MD) Preop exam for internal medicine (Acute) Knee pain (Acute) Cough (Acute) UTI (urinary tract infection) (Acute) Nephrolithiasis (Acute) Depression (Acute) Vitamin D deficiency (Acute) Coronary artery disease (Acute). 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 GERD without esophagitis High blood pressure Intertrigo Myocardial infarction Necrotizing fasciitis Nephrolithiasis Obesity (BMI 30-39.9) Pure hypercholesterolemia 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 Vitamin D deficiency Family History Family History Father Alzheimer's dementia Surgical History Surgical History History of arthroscopy of left knee (~12/2011) History of breast lump/mass excision (~03/2017) History of heart artery stent (~09/2015) History of surgery History of surgery Hx of cystoscopy Social History Social History Household Members: Friend(s) Housing: Apartment Do you presently have visiting nurse or other home services: Yes Alcohol intake: never Patient Tobacco Use Status: Current everyday Tobacco user Tobacco use type: Cigarette Cigarettes Per Day: 10 e-Cigarette/Vaping Use: Never Used Second Hand Smoke Exposure: No Use of substances other than those prescribed or required for medical reasons: No Have you been hit, kicked, punched, or otherwise hurt by someone within the past year? If so, by whom?: No Are you DNR?: No Advance Directives: No Advance Directives Information Provided: Yes Advance Directives on File: No Recently lost weight without trying: No Eating poorly because of decreased appetite: No Nutrition Risks: No Nutritional Risk service: No Current occupational status: disabled Cognitive needs: No Hearing needs: No Vision needs: No Meds Allergies Allergy/AdvReac Type Severity Reaction Status Date / Time No Known Allergies Allergy Verified 12/04/21 14:19 Home Medications Medication Instructions Recorded Confirmed Last Taken Type acetaminophen 325 325 mg PO BID 09/18/20 12/04/21 10/20/21 History mg tablet PRN aspirin 81 mg 81 mg PO DAILY 09/18/20 12/04/21 12/07/21 History tablet,delayed release hydroxyzine HCl 25 mg PO DAILY 03/17/21 12/04/21 10/20/21 History 25 mg tablet PRN tab melatonin 3 mg 3 mg PO BEDTIME 03/17/21 12/04/21 10/20/21 History tablet multivitamin with 1 tab PO DAILY 03/17/21 12/04/21 10/20/21 History minerals-ferrous tab sulfate 4.5 mg iron tablet (One Daily Multivitamins with Minerals) albuterol sulfate 1 inh INHALATION 10/21/21 12/04/21 10/20/21 History 90 mcg/actuation QID PRN aerosol inhaler nystatin 100,000 1 applic TOPICAL 10/21/21 12/04/21 10/20/21 History unit/gram topical TID PRN powder Exam Height,Weight and Vital Signs: Height 5 ft 3.5 in Weight 94.801 kg Vital Signs Temp Pulse Resp BP Pulse Ox 12/08/21 06:39 97.0 F 69 18 116/54 L 93 Pertinent Lab Results Pertinent Lab Results: Laboratory Tests 10/21/21 10/22/21 11:48 06:34 WBC 10.8 Hgb 13.6 Hct 41.8 Plt Count 255 Sodium 142 Potassium 4.0 Chloride 106 Carbon Dioxide 26 BUN 22 H Creatinine 0.86 Lab Results 12/08/21 Range/Units 06:49 POC Glucose 228 H (60-115) mg/dL Airway Mallampati Class: II TM Dist: >3cm Neck ROM: Full Loose/Missing/Broken Teeth: Yes (Only 3 teeth in) Heart: RRR Lungs: CTAB Assessment and Plan Final Anesthetic Review ASA Class: III Final Preanesthetic Review: No Changes in Pt Med Stat, Meds/Allgs Chart Reviewed, Consent Obtained/Reviewed and Anes Risks/Benef Reviewed Patient Risk: Intermediate Procedure Risk: Low Assessment/Block/Sedation in SS: Assess/Block/Sedation-SS Anesthetic Plan Anesthetic Plan: GA Disposition: Standard PACU
--- NOTE | ~2021-12-08 | FL_ITS ---
EXAMINATION: XR FLUOROSCOPY WITH IMAGES CLINICAL INFORMATION: Right calculi. COMPARISON: Fluoroscopic spot views 10/22/2021, CT abdomen and pelvis 10/21/2021 TECHNIQUE: Fluoroscopy performed by Dr. Leroy Farr. Fluoroscopy time: 0.7 minutes Cumulative total dose: 20.14 mGy Images: 2 FINDINGS: There is guidewire on the right with distal end looped in upper pole calyx. Contrast is present in the right collecting system with mild fullness infundibula. No caliectasis. No identifiable focal filling defect. FL/FL guidance in OR IMPRESSION: Fluoroscopy for urologic procedure.
[2021-12-08 06:39] VITALS: BP 116/54; PULSE 69; RESP 18; TEMP 36.1; O2SAT 93
[2021-12-08 06:52] LABS: Glucose, Whole Blood 228 mg/dL (60-115)
[2021-12-08] MEDS: Lactated Ringers 1,000 ML 100 ML IVCONT (06:58)
--- NOTE | 2021-12-08 10:51 | W.PM.OPN ---
Operative Note Operative Note Date of Service: 12/08/21 Narrative: PreOperative Diagnosis: right renal kidney stones multiple greater than 2 cm stone burden Post Operative Diagnosis: same Procedure: - cystoscopy, right retrograde - removal right stent - right dilatation of ureteric orifice under fluoroscopy - right ureteroscopy, laser lithotripsy, stone basketing Modifier 22 Surgeon: Dr Leroy Farr Anesthesia: General Indications for procedure: 51-year-old female. Presented to hospital approximately 1 month ago with stone infection right side. Significant stone burden. Stented been placed. She has recovered from this episode. presents for stone procedure. Understands this may well be a stage procedure and she may require secondary procedures dependent on ability to clear stone fragments. CT scan was reviewed as were prior antibiotic administrations Procedure: After informed consent was verified patient was brought to the operating placed in supine position. Anesthesia was administered per protocol. Patient was placed in modified dorsal lithotomy position and prepped and draped in a sterile fashion. Safety pause time-out and side of surgery confirmed. Antibiotics confirmed. 22 Dominican cystoscope was inserted per urethra. Bladder was normal in its entirety. Both ureteric orifices were in normal position. the right ureteric stent open-ended catheter placed and retrograde examination performed around the stent. The open-ended catheter was removed. The wire was then placed. The indwelling stent was removed with a grasper The rigid cystoscope was removed and the inner cannula of ureteric access sheath was used under fluoroscopy to dilate the ureteric orifice. The ureteric access sheath was placed and the inner cannula with access wire removed. The digital flexible ureteral scope was placed. defer stone was encountered at the mid pole. This was broken using a laser into small pieces. Using a basket these pieces removed. The stone was approximately 1 cm in diameter. Secondary stone was found behind this stone in also removed. A 3rd stone was seen in the lower pole and this was again broken with the laser. There were many small stones sitting behind this largest stone. There were areas of inflamed kidney that was seen both in the mid pole and the lower pole as the stones were removed. Debris was removed with the stones. The process was 200% longer than typical at approximately 90 minutes. After stone debris had been removed as well as we could a decision was made to stop the procedure. No stent was placed as she had a well dilated ureter and had proven able to make biofilm with infection. The bladder was emptied. The patient tolerated the procedure well and was extubated in the operating room, and transferred in stable condition to the recovery area. Pathology: Stone fragments Drains: none
[2021-12-08 10:55] VITALS: BP 131/60; PULSE 70; RESP 14; TEMP 36.2; O2SAT 96
[2021-12-08 11:00] VITALS: BP 138/68; PULSE 64; RESP 16; O2SAT 93
[2021-12-08] MEDS: Acetaminophen 325 MG TABLET 650 MG PO (11:02)
[2021-12-08] MEDS: Phenazopyridine HCL 100 MG TABLET PO (11:02)
[2021-12-08 11:05] VITALS: BP 140/73; PULSE 63; RESP 16; O2SAT 93
[2021-12-08 11:10] VITALS: BP 132/72; PULSE 62; RESP 16; TEMP 36.2; O2SAT 96
[2021-12-11 12:07] LABS: Stone Source KIDNEY STONE
== END 2021-12-08 11:58 | disposition home or self-care (01) ==
PROVIDERS: PCP Internal Medicine; Visit Provider Urology
PROC: (CPT 52353; principal; 2021-12-08 08:30)
DX: N20.0 Calculus of kidney (principal); E11.22 Type 2 diabetes mellitus with diabetic chronic kidney disease; I12.9 Hypertensive chronic kidney disease with stage 1 through stage 4 chronic kidney disease, or unspecified chronic kidney disease; N18.9 Chronic kidney disease, unspecified; E66.01 Morbid (severe) obesity due to excess calories; Z68.36 Body mass index [BMI] 36.0-36.9, adult; F17.210 Nicotine dependence, cigarettes, uncomplicated; I25.10 Atherosclerotic heart disease of native coronary artery without angina pectoris; Z98.61 Coronary angioplasty status; I25.2 Old myocardial infarction; E55.9 Vitamin D deficiency, unspecified; Z79.4 Long term (current) use of insulin; Z79.899 Other long term (current) drug therapy; Z79.82 Long term (current) use of aspirin
CPT/HCPCS: 52353; 82365; 82947; 88300; C1758; C1769; J1100; J1956; J2405; J3010; Q9967

== ENCOUNTER 2021-12-17 12:53 | Outpatient (REF) | payer MEDICARE, MEDICAID, SELFPAY ==
--- NOTE | ~2021-12-17 | US_ITS ---
EXAMINATION: US RETROPERITONEAL LIMITED (RENAL ONLY) CLINICAL INFORMATION: Calculus of kidney. COMPARISON: CT abdomen and pelvis with contrast dated 10/21/2021. TECHNIQUE: Real-time imaging of the kidneys. FINDINGS: RIGHT KIDNEY: 11.8 x 4.2 x 4.4 cm (SAG x AP x TRV). Areas of right renal parenchymal cortical scarring. Renal cortical thickness is normal. No focal parenchymal lesions or hydronephrosis. Multiple nonobstructing right renal stones are seen, the largest measures 1.4 cm in the lower pole, previously 1.3 cm, morphologically similar to prior when accounting for differences in technique. A right extrarenal pelvis is noted. LEFT KIDNEY: 13.8 x 5.3 x 6.6 cm (SAG x AP x TRV). The kidney is normal in size, contour, and echogenicity. Renal cortical thickness is normal. No calculi or focal parenchymal lesions. No hydronephrosis. INCIDENTAL FINDING: Accessory splenule incidentally noted. US/US renal BI IMPRESSION: Multiple nonobstructing right renal stones measuring up to 1.4 cm, similar in appearance to prior CT when accounting for differences in technique. Right renal parenchymal cortical scarring.
== END 2021-12-17 12:54 | disposition home or self-care (01) ==
LOC: HO.HMGCX 12:53
PROVIDERS: PCP Internal Medicine; Visit Provider Urology
DX: N20.0 Calculus of kidney (principal)
CPT/HCPCS: 76775

== ENCOUNTER → 2022-01-09 11:19 | Outpatient (BNVA) | payer MEDICARE, MEDICAID, SELFPAY | PROVIDERS: PCP Internal Medicine; Visit Provider Urology | DX: N20.0 Calculus of kidney (principal) | CPT/HCPCS: 99212 ==

== ENCOUNTER → 2022-02-18 13:46 | Outpatient (BNVA) | payer MEDICARE, MEDICAID, SELFPAY | PROVIDERS: PCP Internal Medicine; Referring Provider Internal Medicine; Visit Provider Internal Medicine | DX: Z01.810 Encounter for preprocedural cardiovascular examination (principal); I25.10 Atherosclerotic heart disease of native coronary artery without angina pectoris; I10 Essential (primary) hypertension; E11.9 Type 2 diabetes mellitus without complications; F17.210 Nicotine dependence, cigarettes, uncomplicated; I25.2 Old myocardial infarction; Z79.4 Long term (current) use of insulin; Z79.82 Long term (current) use of aspirin; Z79.899 Other long term (current) drug therapy | CPT/HCPCS: 93005; 99202 ==

== ENCOUNTER → 2022-04-02 07:25 | Outpatient (REF) | payer MEDICARE, MEDICAID, SELFPAY ==
--- NOTE | ~2022-04-02 | NM_ITS ---
Myocardial perfusion study Indication: Preoperative cardiovascular risk stratification prior CAD Technique: The patient was brought in for a Lexiscan perfusion study on 04/02/2022. Patient performed low-level exercise and was injected 0.4 mg of Lexiscan intravenously. Within a minute of injection, 30 mCi of sestamibi was given intravenously. Images were obtained using the SPECT gamma camera interlaced with the gating device. Images were obtained in supine position. Resting perfusion study was performed on 04/03/2022. Patient was administered 30 mCi of sestamibi intravenously at rest. Images were then obtained in supine position. Images obtained with and without CT attenuation. Total DLP 153 mGy-cm. Images were processed with the software and compared side to side in short axis, horizontal long axis and vertical long axis views. Findings: The stress perfusion study showed non attenuated images show moderately reduced uptake in the distal anterior, mildly reduced uptake in the mid and basal anterior and minimal thinning of the distal septum of the LV myocardium. Is also mildly reduced uptake in the inferoapical and basal inferior wall of the LV myocardium. Remainder of the LV myocardium is normally perfused. Attenuated corrected images show improved uptake in the inferior wall of the LV myocardium. There is still mildly reduced uptake in the distal anterior and apex of the LV myocardium as well as the distal septal wall.. The gated study shows reduced LV systolic function with calculated LVEF of 44%. LV cavity is mildly dilated size. The gated study shows reduced wall thickening and contraction of the distal anterior and distal septal segments. Resting study shows attenuation corrected reduced uptake in the in uptake compared to stress perfusion study Gating at rest reveals distal anterior and septal wall motion abnormality with ejection fraction at 44%. The findings are consistent with no reversible ischemia but distal anterior and septal and apical defect consistent with nontransmural myocardial infarction. NM/NM cardiolite stress test Impression: 1. Myocardial perfusion imaging study shows nontransmural infarct of the anterior, septal and apical wall in the LAD territory 2. Gated LVEF is 44%, consider echocardiogram 3. Transient ischemic dilatation not present EKG is nondiagnostic for ischemia
--- NOTE | 2022-04-02 07:32 | CA_ITS ---
Acquisition Time: 2022-04-02 09:04:36 Total Exercise Time: 00:02:00 Test Indications: Pre-Op Evaluation CAD HTN Medications: SEE H Protocol: LEXISCAN Max HR: 110 BPM 65% of Pred: 167 BPM Max BP: 144/070 mmHG Max Work Load: 1.0 METS Pharmacological stress test with Lexiscan injection, while sitting and kicking her legs, with isolated PVC, with normotensive response to injection, with nondiagnostic EKG for ischemia. In recovery she reported shortness of breath that was treated with Aminophylline 75mg IVP to reverse Lexiscan with resolution of symptom. Nuclear images pending. Test reviewed with Dr Chapa., Referred By: Eleuterio Colvin Overread By: KRISTIN TORRES
--- NOTE | 2022-04-02 07:32 | CA_ITS ---
Transthoracic Echocardiogram Amended Patient (Last, First, Middle): Greer Akins A Gender: Female Date of : 1970 Age: 51 Procedure Date: 04/02/2022 Procedure Type: Transthoracic Echocardiogram Location: OP Height: 160.02 cm Weight: 95.26 kg BSA: 1.97 m2 Heart Rate: bpm BP: 132 / 90 mmHg Med Care Manager: DANIAL Vasquez MD: Eleuterio Colvin MD Steamship Agent: Jey Chapa MD Symptoms: I25.10 - Atherosclerotic heart disease of [place] coronary... Study Quality: Fair/Contrast ECG Rhythm: Sinus Conclusions: - 1. Mildly reduced LVEF of 45-50% with impaired relaxation abnormality with underlying wall motion abnormality suggestive of coronary artery disease 2. Mild aortic regurgitation 3. No gross pericardial effusion Findings Procedure Information Contrast agent, definity, is being given per protocol without apparent complications. Left Ventricle Mildly increased left ventricular cavity size. There is normal left ventricular wall thickness. The left ventricular systolic function is mildly decreased. The visually estimated ejection fraction is between 45-50%. Spectral Doppler is indicative of an impaired relaxation filling pattern. E/E prime ratio is between 8 and 15 consistent with indeterminate filling pressures. Wall Motion Rest Echo Findings The apex, apical anterior, and apical septum segments are hypokinetic. All other scored wall segments showed normal motion. Right Ventricle Normal right ventricular cavity size and systolic function. Atria The left atrium is likely dilated. There is no evidence of interatrial shunt. The right atrium is normal in size. Aortic Valve The aortic valve structure and function is likely normal. There is no aortic valve stenosis. There is mild aortic valve regurgitation. Mitral Valve There is mild anterior and posterior mitral leaflet thickening. There is mild mitral annular calcification. There is trace mitral valve regurgitation. There is no mitral valve stenosis. Pulmonic Valve The pulmonic valve was not well visualized. Tricuspid Valve Likely normal tricuspid valve structure and function. Tricuspid regurgitation envelope is inadequate for calculation of right ventricular systolic pressure. Normal right atrial pressure. Great Vessels All visible segments of the aorta are normal in size. The pulmonary artery was not well visualized. Venous The inferior vena cava is normal in size and collapses greater than 50% with inspiration. Pericardium/Pleural There is no evidence of pericardial effusion. Prior Study Comparison No significant change compared to prior study dated: 03/27/2020. Measurements 2D Linear Measurements IVSd: 1.14 0.6-0.9/0.6-1.0 cm LVIDd: 5.56 3.9-5.3/4.2-5.9 cm LVIDd Index: 2.82 2.4-3.2/2.2-3.1 cm/m2 LVIDs: 3.97 2.0-3.6 cm LVPWd: 1.16 0.7-1.1 cm LA Diam: 4.10 2.7-3.8/3.0-4.0 cm LAIDs Index: 2.08 1.5-2.3 cm/m2 LV Mass: 326.26 67-162/88-224 g LV Mass Index: 165.61 43-95/49-115 g/m2 LVOT Diam: 2.30 3.0+(-)1.3 cm 2D Volumes LA Vol: 31.30 2D Systolic Function EF 4C: 49.90 >55% EF 2C: 50.20 >55% Mitral Valve MV Pk E: 0.63 MV PK A: 0.82 MV Decel Time: 289.00 E/A: 0.80 E'Lateral: 4.79 E'Medial: 4.90 E/E' Med: 12.90 E/E' Lat: 13.20 PHT: 85.00 MVA PHT: 2.59 Decel [place]: 2.19 Aortic Valve AoV Pk [place]eland: 1.85 AoV Mn [place]: 1.11 AoV VTI: 0.38 AoV Pk Grad: 14.00 Aov Mn Grad: 6.00 DAISY Cont.VTI: 2.34 AI Pk [place]: 3.88 AI [place]: 1.43 LVOT LVOT Pk [place]: 0.89 LVOT Mn [place]: 0.61 LVOT VTI: 0.21 LVOT Pk Grad: 3.00 LVOT Mn Grad: 2.00 LVOT Diam: 2.30 LVOT Area: 4.15 Diastolic Function MV Pk E: 0.63 MV Pk A: 0.82 E/A: 0.80 E'Medial: 4.90 E/E' Med: 12.90 E' Laterial: 4.79 E/E' Lat: 13.20 Right Ventricle TAPSE (mm): 27.20 TVS' [place]: 15.30 Tricuspid Valve RA Press: 3.00 Great Vessels Aorta Sinus of Valsalva: 3.34 2.0-3.[address] [place]: 3.04 1.7-3.4 cm Ao Asc: 3.70 2.1-3.4 cm Ao Arch: 2.60 Updated in Other Vendor System with Status of Final Jey Chapa MD electronically signed on 04/03/2022 3:48:21 PM with status of Final
== END ==
LOC: HO.CARD 07:25
PROVIDERS: PCP Internal Medicine; Visit Provider Internal Medicine
DX: I25.10 Atherosclerotic heart disease of native coronary artery without angina pectoris (principal)
CPT/HCPCS: 78452; 93017; 93306; A9500; J0280; J2785; Q9957

== ENCOUNTER → 2022-04-29 13:09 | Outpatient (BNVA) | payer MEDICARE, MEDICAID, SELFPAY | PROVIDERS: PCP Internal Medicine; Referring Provider Internal Medicine; Visit Provider Internal Medicine | DX: Z01.810 Encounter for preprocedural cardiovascular examination (principal); I25.10 Atherosclerotic heart disease of native coronary artery without angina pectoris; I10 Essential (primary) hypertension; E11.8 Type 2 diabetes mellitus with unspecified complications; Z87.891 Personal history of nicotine dependence | CPT/HCPCS: 99212 ==

== ENCOUNTER → 2022-05-01 11:46 | Outpatient (BNVA) | payer OTHER, SELFPAY | PROVIDERS: PCP Internal Medicine; Visit Provider Urology | DX: N20.0 Calculus of kidney (principal) | CPT/HCPCS: Q3014 ==

== ENCOUNTER 2022-06-03 07:55 | Day surgery (SDC) | payer OTHER, SELFPAY ==
--- NOTE | 2022-06-02 11:52 | HO.ANESPROP2 ---
HPI - Anesthesia Eval Consult details Narrative: 51yo F for Right Lithotripsy ESW No prev ESWl on record. s/p cysto, etc 12/2021 with GA-LMA 4 Cardiac cleared [facility] Active Problems Active Problems: All Active Problems (Updated 02/18/22 @ 14:15 by Eleuterio Colvin MD) Smoking (Acute) Type 2 diabetes mellitus with unspecified complications (Acute) Essential hypertension (Acute) Preoperative cardiovascular examination (Acute) Atherosclerotic cardiovascular disease (Acute) Preop exam for internal medicine (Acute) Knee pain (Acute) Cough (Acute) UTI (urinary tract infection) (Acute) Nephrolithiasis (Acute) Depression (Acute) Vitamin D deficiency (Acute) Coronary artery disease (Acute) Benign essential hypertension (Acute) Intertrigo (Acute) Type 2 diabetes mellitus with diabetic chronic kidney disease (Acute) 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) Past Medical History 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 GERD without esophagitis High blood pressure Intertrigo Myocardial infarction Necrotizing fasciitis Nephrolithiasis Obesity (BMI 30-39.9) Pure hypercholesterolemia 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 Vitamin D deficiency Family History Family History Father Alzheimer's dementia Family history of problems with anesthesia: No Surgical History Surgical History History of arthroscopy of left knee (~12/2011) History of breast lump/mass excision (~03/2017) History of heart artery stent (~09/2015) History of surgery History of surgery Hx of cystoscopy History of Problems with Anesthesia: No Social History Social History Household Members: Friend(s) Housing: Apartment Do you presently have visiting nurse or other home services: Yes Alcohol intake: never Patient Tobacco Use Status: Current someday Tobacco user Tobacco use type: Cigarette Years Smoked: 30 +/- e-Cigarette/Vaping Use: Never Used Second Hand Smoke Exposure: No service: No Current occupational status: disabled Cognitive needs: No Hearing needs: No Vision needs: Yes Meds Allergies Allergy/AdvReac Type Severity Reaction Status Date / Time No Known Allergies Allergy Verified 05/01/22 11:48 Home Medications Medication Instructions Recorded Confirmed Last Taken Type aspirin 81 mg tablet,delayed 81 mg PO DAILY 09/18/20 04/29/22 12/07/21 History release melatonin 3 mg tablet 3 mg PO BEDTIME 03/17/21 04/29/22 10/20/21 History multivitamin with minerals-ferrous 1 tab PO DAILY 03/17/21 04/29/22 10/20/21 History sulfate 4.5 mg iron tablet (One Daily Multivitamins with Minerals) nystatin 100,000 unit/gram topical 1 applic topical TID PRN Skin 10/21/21 04/29/22 10/20/21 History powder Irritation hydroxyzine HCl 25 mg tablet 25 mg PO DAILY anxiety 02/18/22 04/29/22 Unknown History hydroxyzine pamoate 25 mg capsule 25 mg PO BID 05/01/22 Unknown History Exam Exam Date and Time: June 02, 2022 1152 Narrative Narrative: EKG 01/2022 sinus rhythm at 77/Min; old septal infarct; PVCs ECHO 04/2022 Conclusions: - 1. Mildly reduced LVEF of 45-50% with impaired relaxation? ? ? abnormality with underlying wall motion abnormality suggestive of coronary artery disease? 2. Mild aortic regurgitation ? 3. No gross pericardial effusion NM cardiolite stress test 04/2022 Impression: ? 1.? Myocardial perfusion imaging study shows nontransmural infarct of the anterior, septal and apical wall in the LAD territory 2.? Gated LVEF is 44%, consider echocardiogram 3. Transient ischemic dilatation not present ? EKG is nondiagnostic for ischemia Assessment and Plan Assessment Anesthesia Assessment: Chart Reviewed Final Anesthetic Review Family History of Problems with Anesthesia: No History of Problems with Anesthesia: No
[2022-06-03] VITALS (8 sets, daily range): BP systolic 127–155; BP diastolic 77–88; PULSE 73–92; RESP 14–20; TEMP 36.1–36.9; O2SAT 91–94; BMI 37.2
--- NOTE | ~2022-06-03 | XR_ITS ---
EXAMINATION: XR ABDOMEN KUB CLINICAL INDICATION: Preop KUB COMPARISON: None TECHNIQUE: AP view of the abdomen. FINDINGS: There is scattered stool and gas seen throughout the colon without significant distention. There is no organomegaly. No radiopaque calculi. There is a round radiopaque density left pelvis, a known calcified uterine fibroid. There is moderate bilateral L4-L5 facet joint arthropathy and hypertrophy. Visualized SI joints are normal. No aggressive lytic or sclerotic process seen. XR/XR KUB IMPRESSION: Mild constipation. No acute process seen.
[2022-06-03 09:39] LABS: Glucose, Whole Blood 300 mg/dL (60-115)
[2022-06-03] MEDS: Lactated Ringers 1,000 ML 50 ML IVCONT (09:39)
[2022-06-03] MEDS: Acetaminophen 325 MG TABLET 650 MG PO (09:40)
--- NOTE | 2022-06-03 10:16 | PC.NURSE ---
pt POC 300. pt states it has been high recently and MD did not want to adjust medications until kidney stones were treated. Dr. Estrella aware and at bedside. no new orders at this time.
--- NOTE | 2022-06-03 11:05 | W.PM.OPN ---
Operative Note Operative Note Date of Service: 06/03/22 Narrative: PreOperative Diagnosis: right Renal stones Post Operative Diagnosis: right Renal stones Procedure: right ESWL Surgeon: Dr Leroy Farr Anesthesia: mac/sedation Indications for procedure: The patient understands ESWL may be a staged procedure and subsequent intervention may be required based on imaging after ESWL. They also understand there is a risk of bleeding to the kidney, infection, damage to adjacent organs, and stone migration following the procedure. - Imaging right stone 1.2 cm lower pole Procedure: After informed consent was verified the patient was brought to the operating room and placed in a supine position. Anesthesia was performed per protocol. Safety pause time-out was performed. Imaging was displayed in the room and laterality confirmed. ESWL was performed. The 1st 500 shocks were performed at 60 hertz. These were performed with increasing power. Once maximum power was reached the rate was increased to 180 hertz. A total of 2500 shocks were given. Targetted imaging with ultrasound/fluoroscopy showed stone smudging suggestive of disintegration. The patient tolerated the procedure well and was transferred to the recovery area upon completion. Post procedure imaging will be organized. There was no evidence for flank discoloration.
--- NOTE | 2022-06-03 11:07 | MHC.SHP ---
Pre-Procedural Eval Section A Date of Service: 06/03/22 The patient is an INPATIENT: No Changes since office visit: No Cold of Flu in the past 2 weeks, No New Medical Problems, No Changes in Medication and No Patient answered all questions The History & Physical has been completed within 30 days and I have reviewed it.: Yes Section B Chief Complaint: kidney stone Details of Present Illness: right lower pole stone eswl Allergies: Allergies Allergy/AdvReac Type Severity Reaction Status Date / Time No Known Allergies Allergy Verified 05/01/22 11:48 Plan I have reviewed the history and physical and performed a pertinent physical examination on my patient. No changes have occurred unless specified.
[2022-06-03] MEDS: Phenazopyridine HCL 100 MG TABLET PO (12:53)
== END 2022-06-03 13:04 | disposition home or self-care (01) ==
PROVIDERS: PCP Internal Medicine; Visit Provider Urology
PROC: (CPT 50590; principal; 2022-06-03 09:40)
DX: N20.0 Calculus of kidney (principal); E11.22 Type 2 diabetes mellitus with diabetic chronic kidney disease; I12.9 Hypertensive chronic kidney disease with stage 1 through stage 4 chronic kidney disease, or unspecified chronic kidney disease; N18.9 Chronic kidney disease, unspecified; Z79.4 Long term (current) use of insulin; I25.10 Atherosclerotic heart disease of native coronary artery without angina pectoris; Z98.61 Coronary angioplasty status; I25.2 Old myocardial infarction; E78.00 Pure hypercholesterolemia, unspecified; E55.9 Vitamin D deficiency, unspecified; K21.9 Gastro-esophageal reflux disease without esophagitis; Z79.899 Other long term (current) drug therapy; Z87.891 Personal history of nicotine dependence
CPT/HCPCS: 50590; 74018; 82947; J2250; J2405; J3010

== ENCOUNTER 2022-06-17 14:24 | Outpatient (REF) | payer OTHER, SELFPAY ==
--- NOTE | ~2022-06-17 | US_ITS ---
EXAMINATION: US RETROPERITONEAL LIMITED (RENAL ONLY) CLINICAL INFORMATION: Calculus of kidney. COMPARISON: X-ray KUB 06/03/2022. Renal ultrasound 12/17/2021 and 11/11/2012. CT abdomen and pelvis 10/21/2021. TECHNIQUE: Real-time imaging of the kidneys. FINDINGS: RIGHT KIDNEY: 12.5 x 5.9 x 6.3 cm (SAG x AP x TRV). The kidney is normal in size, contour, and echogenicity. Renal cortical thickness is normal. No focal parenchymal lesions or hydronephrosis. Within the lower pole there are 2 echogenic foci present with the appearance of nonobstructing calculi. One measures 6 mm in largest dimension and the second one measures 6 mm in largest dimension. Within the interpolar region there is a nonobstructing 5 mm calculus. Surrounding the lateral aspect of the right kidney there is a mildly complex fluid collection which may be subcapsular but without definite deformity of the renal cortex or other significant findings to suggest a Page kidney. This may represent hematoma or urinoma. LEFT KIDNEY: 11.6 x 5.5 x 5.3 cm (SAG x AP x TRV). The kidney is normal in size, contour, and echogenicity. Renal cortical thickness is normal. No calculi or focal parenchymal lesions. No hydronephrosis. US/US renal BI IMPRESSION: Right nephrolithiasis without hydronephrosis. Mildly complex fluid collection seen lateral aspect of the right kidney which may represent hematoma or urinoma. No definite secondary findings to suggest page kidney..
== END 2022-06-17 14:25 | disposition home or self-care (01) ==
LOC: HO.HMGCX 14:24
PROVIDERS: Visit Provider Urology
DX: N20.0 Calculus of kidney (principal)
CPT/HCPCS: 76775

== ENCOUNTER → 2022-06-26 10:01 | Outpatient (BNVA) | payer OTHER, SELFPAY | PROVIDERS: PCP Internal Medicine; Visit Provider Urology | DX: N20.0 Calculus of kidney (principal) | CPT/HCPCS: Q3014 ==

== ENCOUNTER 2022-07-23 06:05 | Inpatient (IN) | payer OTHER, SELFPAY ==
[2022-07-23] VITALS (9 sets, daily range): BP systolic 96–132; BP diastolic 20–83; PULSE 77–97; RESP 14–86; TEMP 36.3–36.8; O2SAT 90–95; BMI 37.7
--- NOTE | ~2022-07-23 | CT_ITS ---
EXAMINATION: CT ABDOMEN AND PELVIS WITHOUT CONTRAST CLINICAL INFORMATION: Right-sided flank pain, status post lithotripsy on June 03. COMPARISON: Renal ultrasound 06/17/2022, CT abdomen/pelvis 10/21/2021, chest CTA 08/25/2015. TECHNIQUE: Multidetector volumetric imaging was performed from the superior aspect of the liver through the pubic symphysis. Sagittal and coronal reformatted images were obtained on the technologist's workstation. This CT examination was performed using dose optimization techniques as appropriate, variously including the following: *Automated exposure control *Adjustment of mA and/or kV according to patient size (this includes techniques or standardized protocols for targeted exams where dose is matched to indication/reason for exam; i.e. extremities or head) *Use of iterative reconstruction technique DLP: 793 mGy-cm FINDINGS: LUNG BASES: Bibasilar scarring is present, right greater than left. The heart is enlarged. Marked coronary calcification is seen. LIVER, GALLBLADDER, AND BILIARY TREE: The liver is enlarged measuring 20.8 cm in cephalocaudad dimension but is normal in attenuation. No focal hepatic lesion or biliary ductal dilatation is present. The gallbladder is contracted and contains layering small gallstones but otherwise unremarkable without obvious pericholecystic inflammatory changes. PANCREAS: Unremarkable. SPLEEN: There is splenomegaly with the spleen measuring 16.3 cm in greatest dimension along with a single calcified granuloma. ADRENAL GLANDS: Again seen are bilateral adrenal nodules, unchanged in size from the prior study. On today's exam the nodule on the left measures 9.4 Hounsfield units and the nodule on the right measures 14 Hounsfield units. These are unchanged in size dating back to 08/25/2015 and are almost certainly benign adenomas. KIDNEYS AND URETERS: The left kidney is unremarkable with no calculi demonstrated and some nonspecific perinephric stranding. The right kidney is grossly abnormal. Residual stone fragments are seen within the kidney. There is a large subcapsular collection producing mass effect on the kidney measuring 8.5 x 6.0 x 6.3 cm. This measures approximately 16 Hounsfield units and may be a urinoma. Surrounding this and extending into the perinephric space is higher density which is consistent with an area of perinephric hemorrhage. No hydronephrosis is seen. Both ureters are nondilated. BLADDER: Nearly empty but unremarkable. GASTROINTESTINAL TRACT: The small and large bowel are unremarkable aside from colonic diverticula without diverticulitis and fatty infiltration of the ileocecal valve. The appendix is unremarkable. ABDOMINAL WALL: No significant hernia is appreciated. LYMPH NODES: No retroperitoneal lymphadenopathy. VASCULAR: Marked calcific atherosclerotic changes are present in the aorta and iliac vessels. Stenosis is present in the proximal SMA. PELVIC VISCERA: A calcified uterine fibroid is present. OSSEOUS STRUCTURES: Mild degenerative changes present in the spine with anterior wedging of T11 and T12. CT/CT abdomen pelvis wo IV con IMPRESSION: Grossly abnormal right kidney status post-lithotripsy on June 03 with residual stone fragments, perinephric hemorrhage and a large subcapsular urinoma or possibly evolving hematoma. Other incidental findings described above. This critical result was discussed with Dr. Clementina Cespedes at 8:30 AM on the day of the exam, and it was ascertained that the content and urgency of the report was understood at the time of direct communication. Fleischner guidelines were followed.
--- NOTE | ~2022-07-23 | XR_ITS ---
EXAMINATION: XR CHEST CLINICAL INFORMATION: Dyspnea COMPARISON: CT abdomen pelvis today, Chest radiograph 10/21/2020 TECHNIQUE: Frontal view of the chest was obtained. FINDINGS: Again noted is mildly elevated right hemidiaphragm. Increased interstitial markings are again noted. No infiltrates, effusions or lung masses are seen. There has been no significant interval change when compared to 10/21/2021. XR/XR chest 1V IMPRESSION: No acute intrathoracic disease.
--- NOTE | 2022-07-23 06:32 | ED.ABDPAIN ---
HPI - Abdominal Pain General Chief Complaint: Abdominal Pain Stated Complaint: right flank pain hx kidney stones Time Seen by Provider: 07/23/22 06:31 Source: patient and old records reviewed Mode of arrival: EMS Limitations: no limitations History of Present Illness HPI narrative: 51 yo female with hx of HTN, DM, obesity, prior UTI, CAD, beena's, presents with R flank pain and nausea since 3am. She notes she had lithotripsy about 3 months ago here with Urology she also had US in June which should stones in R kidney. She notes she isn't sure if she has a UTI or if this is stones. MD elicited complaint: flank pain Pertinent past history: kidney stones and past UTI Onset (ago): hour(s) (3am today) Pain Consistency: constant Location: R flank Severity: moderate Quality: stabbing Radiation: RLQ Migration to: no migration Exacerbating factors: movement Relieving factors: nothing Context: history of similar episodes Associated symptoms: nausea and chills Related Data Home Medications Medication Instructions Recorded Confirmed aspirin 81 mg tablet,delayed 81 mg PO DAILY 09/18/20 07/23/22 release melatonin 3 mg tablet 3 mg PO BEDTIME 03/17/21 07/23/22 multivitamin with minerals-ferrous 1 tab PO DAILY 03/17/21 07/23/22 sulfate 4.5 mg iron tablet (One Daily Multivitamins with Minerals) hydroxyzine pamoate 25 mg capsule 25 mg PO BID@0900,1700 05/01/22 07/23/22 pen needle, diabetic 32 gauge x #50 ea 06/16/22 07/23/22/32 (BD Ultra-Fine Gi Pen Needle) amlodipine 5 mg tablet (Norvasc) 5 mg PO BEDTIME 07/23/22 07/23/22 ergocalciferol (vitamin D2) 1,250 1,250 mcg PO SA 07/23/22 07/23/22 mcg (50,000 unit) capsule (Vitamin D2) insulin aspart U-100 100 unit/mL 22 unit subcut DAILY 07/23/22 07/23/22 (3 mL) subcutaneous pen (Novolog Flexpen U-100 Insulin aspart) metformin 500 mg tablet 500 mg PO DAILY@1200 07/23/22 07/23/22 Previous Rx's Medication Instructions Recorded sertraline 100 mg tablet 100 mg PO DAILY #30 caps 12/13/20 carvedilol 12.5 mg tablet 12.5 mg PO BID #60 tabs 03/11/22 omeprazole 40 mg capsule,delayed 40 mg PO DAILY #30 caps 03/11/22 release atorvastatin 80 mg tablet 80 mg PO DAILY #30 tabs 04/03/22 gabapentin 100 mg capsule 200 mg PO TID #180 caps 04/21/22 albuterol sulfate 90 mcg/actuation 1 puff PO QID PRN for dyspnea #6.7 04/30/22 aerosol inhaler grams lancets 28 gauge (FreeStyle #100 ea 05/15/22 Lancets) allopurinol 100 mg tablet 100 mg PO DAILY 90 days #90 tabs 06/26/22 pyridoxine (vitamin B6) 100 mg 100 mg PO DAILY 90 days #90 tabs 06/26/22 tablet blood-glucose meter (Freestyle #1 ea 07/13/22 In[employer] meter) Allergies Allergy/AdvReac Type Severity Reaction Status Date / Time No Known Allergies Allergy Verified 06/25/22 13:49 Review of Systems Review of Systems Constitutional : No Weight loss, No Fever, pos Chills ENT/Mouth : No sore throat, No Rhinorrhea Eyes: No Swelling, No Redness Cardiovascular : No Chest Pain, No SOB, No edema Respiratory : No Cough, No Sputum, No Wheezing Gastrointestinal : Positive Nausea, no Vomiting, no Diarrhea, positive abdominal Pain, No Hematochezia, No Melena Genitourinary : No Dysuria, No Urinary Frequency, No Hematuria, No Urgency Musculoskeletal : No joint pain, No Myalgias, No Joint Swelling Skin : No Skin Lesions, No rash Neuro : No Weakness, No Numbness, No Dizziness, No Headache Psych : No Anxiety/Panic, No Depression Heme/Lymph: No Bruising, No Lymphadenopathy Endocrine : No Polyuria, No Polydipsia All other systems reviewed and are negative. [facility] Past Medical History Attestation statement: The following information was validated with the patient. 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 Vitamin D deficiency Surgical History History of arthroscopy of left knee (~12/2011) History of breast lump/mass excision (~03/2017) History of heart artery stent (~09/2015) History of surgery History of surgery Hx of cystoscopy Family History Family History Father Alzheimer's dementia Social History Social History Household Members: Friend(s) Housing: Apartment Do you presently have visiting nurse or other home services: Yes Alcohol intake: never Patient Tobacco Use Status: Former Tobacco user Quit Date: 01/2022 Tobacco use type: Cigarette Years Smoked: 30 +/- e-Cigarette/Vaping Use: Never Used Second Hand Smoke Exposure: No Use of substances other than those prescribed or required for medical reasons: No Advance Directives: No service: No Current occupational status: disabled Cognitive needs: No Hearing needs: No Vision needs: Yes Physical Exam ED Vital Signs: Vital Signs - 24 hr 07/23/22 06:15 07/23/22 07:00 07/23/22 07:15 Temperature 98.3 F 98.0 F Pulse Rate 79 78 Respiratory Rate 16 14 Blood Pressure 101/20 L 110/50 L 100/51 L Pulse Oximetry 93 94 Oxygen Delivery Method Room Air Room Air Oxygen Flow Rate 07/23/22 09:08 07/23/22 09:46 07/23/22 09:50 Temperature 97.9 F Pulse Rate 80 77 Respiratory Rate 20 18 Blood Pressure 96/49 L 107/62 Pulse Oximetry 90 L 92 Oxygen Delivery Method Nasal Cannula Nasal Cannula Oxygen Flow Rate 2 2 07/23/22 10:52 Temperature 98.2 F Pulse Rate 89 Respiratory Rate 24 H Blood Pressure 132/72 Pulse Oximetry 91 L Oxygen Delivery Method Room Air Oxygen Flow Rate BMI result Body Mass Index 37.7 Appearance: Alert. Oriented X3. No acute distress. Eyes: Pupils equal, round and reactive to light. ENT: Pharynx normal. Neck: Normal inspection. Neck supple. CVS: Normal heart rate and rhythm. Pulses normal. Respiratory: No respiratory distress. Breath sounds normal. Abdomen: Soft and mild ttp in R side of abdomen Skin: Skin warm and dry. Normal skin color. Normal skin turgor. Extremities: No lower extremity edema. No calf ttp Neuro: Oriented X 3. No motor deficit. No sensory deficit. Course Course Course Narrative: INITIAL BLOOD PRESSURE IN ERROR - CUFF WAS TOO LARGE READJUSTED AND REPEAT BLOOD PRESSURE NORMAL call from [facility] 831am - urinoma now with surrounding hematoma increase in size, hard to compare sizes given US and CT scan much larger. UA + at this time infection suspected 834am - ceftriaxone ordered message sent to Dr. Farr 834am - aware admit to medicine, treat UTI should resolve given neb for diff breathing feels better - will admit for further workup hypotension due to incorrect BP cuff repositioned, she has normal BP on recheck, bolus held at this time - normal lactic acid, I do not suspect severe sepsis. She also has anemia which could be the cause of her symptoms. MDM - Abdominal Pain MDM Narrative Medical decision making narrative: 51 yo female with hx of HTN, DM, obesity, prior UTI, CAD, beena's, kidney stones, at this time she has R flank pain - will need labs, UA, CT scan for renal colic, IV fentanyl for pain. Her last urine was serratia which was susceptible to ceftriaxone if she has a UTI. Dispo per results and findings. Lab Data Result diagrams: 07/23/22 10:46 07/23/22 06:59 Labs: Lab Results 07/23/22 07/23/22 07/23/22 Range/Units 06:59 06:59 06:59 WBC 16.0 H (4.8-10.8) X10*3/uL RBC 3.36 L D (4.20-5.50) X10*6/uL Hgb 8.9 L D (12.0-16.0) g/dl Hct 28.5 L D (37.0-47.0) % MCV 84.8 (80.0-98.0) fL MCH 26.5 L (27.0-33.0) pg MCHC 31.2 (31.0-35.0) g/dl RDW 14.9 (11.0-16.0) % Plt Count 513 H D (160-400) X10*3/uL MPV 9.8 (9.4-12.3) fL Absolute Nucleated RBC 0.000 (0.0-0.012) X10*3/uL Nucleated RBC % (auto) 0.0 (0.0-0.2) /100WBC PT (10.0-13.1) SEC INR (0.9-1.1) Sodium 136 (135-145) mmol/L Potassium 4.2 (3.3-5.1) mmol/L Chloride 103 (96-108) mmol/L Carbon Dioxide 20 L (22-29) mmol/L Anion Gap 17 (12-20) BUN 25 H (9-16) mg/dL Creatinine 1.12 (0.5-1.4) mg/dL Estim Creat Clear Calc 64.3 Estimated GFR 51 Random Glucose 272 H (60-115) mg/dL Lactic Acid 0.6 (0.5-2.0) mmol/L Calcium 8.5 D (8.4-10.2) mg/dL Total Bilirubin 0.4 (0.0-1.0) mg/dL Direct Bilirubin 0.2 (0.0-0.5) mg/dL AST 36 H D (5-31) U/L ALT 47 H (0-31) U/L Alkaline Phosphatase 381 H D (39-117) U/L Troponin I High Sens (<3.5-17.0) ng/L Total Protein 5.7 L D (6.5-8.0) g/dL Albumin 2.7 L D (3.5-5.0) g/dL Lipase 10 (8-78) U/L Urine Color Urine Appearance Urine pH (5.0-9.0) Ur Specific [place] (1.005-1.025) Urine Protein (Neg-Trace) mg/dL Urine Glucose (UA) (Negative) mg/dL Urine Ketones (Negative) mg/dL Urine Blood (Negative) Urine Nitrite (Negative) Ur Leukocyte Esterase (Negative) Urine RBC (0-2) /HPF Urine WBC (0-5) /HPF Ur Squamous Epith Cells (0-2) /HPF Urine Bacteria (None Seen) Hyaline Casts (0-2) /LPF COVID-19 (JORDON) (Negative) COVID-19 Clin Com Blood Type Antibody Screen 09/22/22 09/22/22 09/22/22 Range/Units 07:30 07:30 08:23 WBC (4.8-10.8) X10*3/uL RBC (4.20-5.50) X10*6/uL Hgb (12.0-16.0) g/dl Hct (37.0-47.0) % MCV (80.0-98.0) fL MCH (27.0-33.0) pg MCHC (31.0-35.0) g/dl RDW (11.0-16.0) % Plt Count (160-400) X10*3/uL MPV (9.4-12.3) fL Absolute Nucleated RBC (0.0-0.012) X10*3/uL Nucleated RBC % (auto) (0.0-0.2) /100WBC PT 13.1 (10.0-13.1) SEC INR 1.1 (0.9-1.1) Sodium (135-145) mmol/L Potassium (3.3-5.1) mmol/L Chloride (96-108) mmol/L Carbon Dioxide (22-29) mmol/L Anion Gap (12-20) BUN (9-16) mg/dL Creatinine (0.5-1.4) mg/dL Estim Creat Clear Calc Estimated GFR Random Glucose (60-115) mg/dL Lactic Acid (0.5-2.0) mmol/L Calcium (8.4-10.2) mg/dL Total Bilirubin (0.0-1.0) mg/dL Direct Bilirubin (0.0-0.5) mg/dL AST (5-31) U/L ALT (0-31) U/L Alkaline Phosphatase (39-117) U/L Troponin I High Sens (<3.5-17.0) ng/L Total Protein (6.5-8.0) g/dL Albumin (3.5-5.0) g/dL Lipase (8-78) U/L Urine Color Dark Yellow Urine Appearance Turbid Urine pH 5.5 (5.0-9.0) Ur Specific [place] >= 1.030 H (1.005-1.025) Urine Protein >=1000 (4+) H (Neg-Trace) mg/dL Urine Glucose (UA) 100 H (Negative) mg/dL Urine Ketones Trace (Negative) mg/dL Urine Blood Small (1+) H (Negative) Urine Nitrite Negative (Negative) Ur Leukocyte Esterase Large (3+) H (Negative) Urine RBC 6-10 H (0-2) /HPF Urine WBC >50 H (0-5) /HPF Ur Squamous Epith Cells 11-20 (0-2) /HPF Urine Bacteria 1+ (None Seen) Hyaline Casts 0-2 (0-2) /LPF COVID-19 (JORDON) (Negative) COVID-19 Clin Com Blood Type A Positive Antibody Screen NEGATIVE 07/23/22 07/23/22 07/23/22 Range/Units 08:46 10:46 10:46 WBC (4.8-10.8) X10*3/uL RBC (4.20-5.50) X10*6/uL Hgb 9.8 L (12.0-16.0) g/dl Hct 31.6 L (37.0-47.0) % MCV (80.0-98.0) fL MCH (27.0-33.0) pg MCHC (31.0-35.0) g/dl RDW (11.0-16.0) % Plt Count (160-400) X10*3/uL MPV (9.4-12.3) fL Absolute Nucleated RBC (0.0-0.012) X10*3/uL Nucleated RBC % (auto) (0.0-0.2) /100WBC PT (10.0-13.1) SEC INR (0.9-1.1) Sodium (135-145) mmol/L Potassium (3.3-5.1) mmol/L Chloride (96-108) mmol/L Carbon Dioxide (22-29) mmol/L Anion Gap (12-20) BUN (9-16) mg/dL Creatinine (0.5-1.4) mg/dL Estim Creat Clear Calc Estimated GFR Random Glucose (60-115) mg/dL Lactic Acid (0.5-2.0) mmol/L Calcium (8.4-10.2) mg/dL Total Bilirubin (0.0-1.0) mg/dL Direct Bilirubin (0.0-0.5) mg/dL AST (5-31) U/L ALT (0-31) U/L Alkaline Phosphatase (39-117) U/L Troponin I High Sens 4.8 (<3.5-17.0) ng/L Total Protein (6.5-8.0) g/dL Albumin (3.5-5.0) g/dL Lipase (8-78) U/L Urine Color Urine Appearance Urine pH (5.0-9.0) Ur Specific [place] (1.005-1.025) Urine Protein (Neg-Trace) mg/dL Urine Glucose (UA) (Negative) mg/dL Urine Ketones (Negative) mg/dL Urine Blood (Negative) Urine Nitrite (Negative) Ur Leukocyte Esterase (Negative) Urine RBC (0-2) /HPF Urine WBC (0-5) /HPF Ur Squamous Epith Cells (0-2) /HPF Urine Bacteria (None Seen) Hyaline Casts (0-2) /LPF COVID-19 (JORDON) Negative (Negative) COVID-19 Clin Com See Note Blood Type Antibody Screen ECG Data Attestation: I personally reviewed and interpreted this ECG as follows: ECG interpretation date: 07/23/22 ECG interpretation time: 09:37 Interpretation: Rate: 78 Rhythm: NSR [place]: normal Normal P waves. Normal CODY. Normal QRS complex. ST T wave : normal no MILEY qTC: normal prior studies: no acute ischemia The study has been interpreted contemporaneously by me. . Critical Care Time Critical Care Time Critical Care Time: Yes Total Critical Care Time: 45 Attestation: review of records, medical consult, type and screen, IV pain medications I attest to this time spent taking care of the patient Discharge Plan Discharge Clinical Impression: Acute UTI, Acute blood loss anemia, Perinephric hematoma, Pararenal urinoma Patient Disposition: Admitted As Inpatient
[2022-07-23] MEDS: ondansetron HCL 4 MG/2 ML VIAL IVPUSH (06:46)
[2022-07-23] MEDS: fentaNYL citrate/PF 100 MCG/2 ML VIAL 50 MCG IVPUSH (06:46)
[2022-07-23] MEDS: 0.9 % Sodium Chloride 500 ML IV (06:48)
[2022-07-23 07:07] LABS: Hematocrit 28.5 % (37.0-47.0); Hemoglobin 8.9 g/dl (12.0-16.0); Mean Corpuscular HGB Conc 31.2 g/dl (31.0-35.0); Mean Corpuscular Hemoglobin 26.5 pg (27.0-33.0); Mean Corpuscular Volume 84.8 fL (80.0-98.0); Mean Platelet Volume 9.8 fL (9.4-12.3); Platelet Count 513 X10*3/uL (160-400); Red Blood Count 3.36 X10*6/uL (4.20-5.50); Red Cell Distribution Width 14.9 % (11.0-16.0)
[2022-07-23 07:16] LABS: Lactic Acid 0.6 mmol/L (0.5-2.0)
[2022-07-23 07:27] LABS: Alanine Aminotransferase 47 U/L (0-31); Albumin Level 2.7 g/dL (3.5-5.0); Alkaline Phosphatase 381 U/L (39-117); Anion Gap 17 (12-20); Aspartate Amino Transferase 36 U/L (5-31); Bilirubin Direct 0.2 mg/dL (0.0-0.5); Bilirubin Total 0.4 mg/dL (0.0-1.0); Blood Urea Nitrogen 25 mg/dL (9-16); Calcium 8.5 mg/dL (8.4-10.2); Carbon Dioxide 20 mmol/L (22-29); Chloride 103 mmol/L (96-108); Creatinine Clr Calc Pharmacy 64.3; Estimated Glomerular Filt Rate 51; Glucose Random 272 mg/dL (60-115); Lipase 10 U/L (8-78); Potassium 4.2 mmol/L (3.3-5.1); Sodium 136 mmol/L (135-145); Total Protein 5.7 g/dL (6.5-8.0)
--- NOTE | 2022-07-23 07:28 | PC.NURSE ---
no abdominal pain assessment noted as pt with no abdominal pain right now.
[2022-07-23 07:43] LABS: INTERNATIONAL NORM RATIO 1.1 (0.9-1.1); Prothrombin Time 13.1 SEC (10.0-13.1)
[2022-07-23 08:29] LABS: Appearance Urine Turbid; Color Urine Dark Yellow; Glucose Urine UA 100 mg/dL (Negative); Leukocyte Esterase Urine Large (3+) (Negative); Nitrite Urine Negative (Negative); PH 5.5 (5.0-9.0); Specific Gravity - Urine >= 1.030 (1.005-1.025); UMIC TRIGGER UACC YES; Urine Blood Small (1+) (Negative); Urine Ketones Trace mg/dL (Negative); Urine Protein >=1000 (4+) mg/dL (Neg-Trace)
[2022-07-23 08:47] LABS: Bacteria Urine 1+ (None Seen); UACC Culture Trigger YES; WBC Urine >50 /HPF (0-5)
[2022-07-23 08:48] LABS: Hyaline Casts Urine 0-2 /LPF (0-2)
[2022-07-23] MEDS: cefTRIAXone sodium 1 GM in 0.9 % Sodium Chloride 50 ML IV (08:53)
--- NOTE | 2022-07-23 09:06 | ECG_ITS ---
Test Reason : dizziness Blood Pressure : / mmHG Vent. Rate : 078 BPM Atrial Rate : 078 BPM P-R Int : 182 ms QRS Dur : 078 ms QT Int : 392 ms P-R-T Axes : 062 -05 063 degrees QTc Int : 446 ms Normal sinus rhythm Septal infarct (cited on or before 22-SEP-2015) Abnormal ECG When compared with ECG of 21-OCT-2021 12:11, Premature ventricular complexes are no longer Present Nonspecific T wave abnormality, improved in Lateral leads Referred By: Clementina Cespedes Electronically Signed By:DARRICK GABRIEL
[2022-07-23 09:07] LABS: COVID-19 Test Negative (Negative); IDNOW Serial# 9DB6401D
[2022-07-23] MEDS: Albuterol/Iprat 2.5/0.5MG 3 ML AMPUL.NEB INHALE (09:44)
--- NOTE | 2022-07-23 09:48 | PHA.MEDREC ---
Pharmacy Consult ? Medication Reconciliation Pharmacy has completed the medication reconciliation. Patient had a list which verified most meds, but asked about any issues. Per Patient, she was taking novolog flexpen 15 units QAM and it was recently increased to 22 units. I found it odd that she would only be taking prandial insulin once a day and was assuming that she is mistaking NPH insulin (which can be given once a day) with novolog. She described a novolog flexpen to me. I looked back at an old note from her PCP which states NPH insulin so I contacted [facility]. They did confirm she is getting Novolog flex pen, last filled 04/22 with directions of 15 units QAM . Thanks Marino
[2022-07-23] MEDS: oxyCODONE HCl Immed Release 5 MG TABLET 10 MG PO ×2 (10:06→21:36)
[2022-07-23 10:51] LABS: Hematocrit 31.6 % (37.0-47.0); Hemoglobin 9.8 g/dl (12.0-16.0)
[2022-07-23 11:10] LABS: Troponin-I High Sensitivity 4.8 ng/L (<3.5-17.0)
--- NOTE | 2022-07-23 11:16 | PM.IMHP ---
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 She reports associated poor oral intake and chills. She denies any fevers. Denies any dysuria, frequency, urgency or hematuria. She reports symptoms of anemia including dysnea on exertion and fatigue. She denies anginal chest symptoms. She reports intermittent flank pain since the procedure, but over the last 4-5 days it has been unrelenting and hence she presented to the ED. Work up in the ED revealed a grossly abnormal R kidney (see radiology report for full details). Her H/H was significantly lower from her prior values (dropped from around 12 to 8). Her case was d/w with urology (by the ED provider) and the pt will now be admitted for further care. 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 GERD without esophagitis High blood pressure Intertrigo Myocardial infarction Necrotizing fasciitis Nephrolithiasis Obesity (BMI 30-39.9) Pure hypercholesterolemia 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 Vitamin D deficiency Family History Father Alzheimer's dementia Surgical History History of arthroscopy of left knee (~12/2011) History of breast lump/mass excision (~03/2017) History of heart artery stent (~09/2015) History of surgery History of surgery Hx of cystoscopy Social History Household Members: Friend(s) Housing: Apartment Do you presently have visiting nurse or other home services: Yes Alcohol intake: never Patient Tobacco Use Status: Former Tobacco user Quit Date: 01/2022 Tobacco use type: Cigarette Years Smoked: 30 +/- e-Cigarette/Vaping Use: Never Used Second Hand Smoke Exposure: No Use of substances other than those prescribed or required for medical reasons: No Advance Directives: No service: No Current occupational status: disabled Cognitive needs: No Hearing needs: No Vision needs: Yes Meds Allergies Allergy/AdvReac Type Severity Reaction Status Date / Time No Known Allergies Allergy Verified 06/25/22 13:49 Active Medications: Current Medications Oxycodone HCl (Oxycodone Hcl Immed Release 5 Mg Tablet) 10 mg PO Q6H PRN PRN Reason: Pain, Severe (Pain Scale 7-10) Pharmacy Consult (Consult Rx Perform Med Rec) 1 each MISCELLANE ONCE PRN PRN Reason: Consult order Sodium Chloride (0.9 % Sodium Chloride Flush 3 Ml Syringe) [address] [facility] Home Medications Medication Instructions Recorded Confirmed Last Taken Type aspirin 81 mg tablet,delayed 81 mg PO DAILY 09/18/20 07/23/22 07/22/22 History release melatonin 3 mg tablet 3 mg PO BEDTIME 03/17/21 07/23/22 07/22/22 History multivitamin with minerals-ferrous 1 tab PO DAILY 03/17/21 07/23/22 07/22/22 History sulfate 4.5 mg iron tablet (One Daily Multivitamins with Minerals) hydroxyzine pamoate 25 mg capsule 25 mg PO BID@0900,1700 05/01/22 07/23/22 07/22/22 History pen needle, diabetic 32 gauge x #50 ea 06/16/22 07/23/22 Unknown History (BD Ultra-Fine Gi Pen Needle) amlodipine 5 mg tablet (Norvasc) 5 mg PO BEDTIME 07/23/22 07/23/22 07/22/22 History ergocalciferol (vitamin D2) 1,250 1,250 mcg PO SA 07/23/22 07/23/22 07/18/22 History mcg (50,000 unit) capsule (Vitamin D2) insulin aspart U-100 100 unit/mL 22 unit subcut DAILY 07/23/22 07/23/22 07/22/22 History (3 mL) subcutaneous pen (Novolog Flexpen U-100 Insulin aspart) metformin 500 mg tablet 500 mg PO DAILY@1200 07/23/22 07/23/22 07/22/22 History Physical Exam Vital Signs and Narrative: Vital Signs: Last Vital Signs Temp 98.2 F 07/23/22 10:52 Pulse 89 07/23/22 10:52 Resp 24 H 07/23/22 10:52 BP 132/72 07/23/22 10:52 Pulse Ox 91 L 07/23/22 10:52 O2 Del Method 07/23/22 10:52 O2 Flow Rate 2 07/23/22 09:50 BMI result Body Mass Index 37.7 Const: Other: Constitutional - Awake and Alert, No apparent distress Eyes - PERRLA, EOMI Cardiovascular - S1S2, RRR, No edema Respiratory - Normal lung expansion, Normal respiratory effort, No respiratory distress, CTA bilaterally Gastrointestinal - NT / ND; +BS; No rebound or guarding - R CVA TTP, no bruising/palpapable mass noted Extremities - no calf tenderness bilaterally, no swelling Musculoskeletal - Normal inspection, normal ROM Skin - Warm/Dry Neurological - Alert & oriented x3, No focal deficit Psychological - Appropriate affect Results Labs CBC and Chem 7: 07/23/22 10:46 07/23/22 06:59 Labs: Laboratory Results - last 24 hr 07/23/22 07/23/22 07/23/22 06:59 06:59 06:59 MCV 84.8 MCH 26.5 L MCHC 31.2 RDW 14.9 Plt Count 513 H D MPV 9.8 Absolute Nucleated RBC 0.000 Nucleated RBC % (auto) 0.0 PT INR Anion Gap 17 Estim Creat Clear Calc 64.3 Estimated GFR 51 Random Glucose 272 H Lactic Acid 0.6 Calcium 8.5 D Total Bilirubin 0.4 Direct Bilirubin 0.2 AST 36 H D ALT 47 H Alkaline Phosphatase 381 H D Total Protein 5.7 L D Albumin 2.7 L D Lipase 10 Urine Color Urine Appearance Urine pH Ur Specific Keller Urine Protein Urine Glucose (UA) Urine Ketones Urine Blood Urine Nitrite Ur Leukocyte Esterase Urine RBC Urine WBC Ur Squamous Epith Cells Urine Bacteria Hyaline Casts COVID-19 (JORDON) COVID-19 Clin Com Blood Type Antibody Screen 07/23/22 07/23/22 07/23/22 07:30 07:30 08:23 MCV MCH MCHC RDW Plt Count MPV Absolute Nucleated RBC Nucleated RBC % (auto) PT 13.1 INR 1.1 Anion Gap Estim Creat Clear Calc Estimated GFR Random Glucose Lactic Acid Calcium Total Bilirubin Direct Bilirubin AST ALT Alkaline Phosphatase Total Protein Albumin Lipase Urine Color Dark Yellow Urine Appearance Turbid Urine pH 5.5 Ur Specific Keller >= 1.030 H Urine Protein >=1000 (4+) H Urine Glucose (UA) 100 H Urine Ketones Trace Urine Blood Small (1+) H Urine Nitrite Negative Ur Leukocyte Esterase Large (3+) H Urine RBC 6-10 H Urine WBC >50 H Ur Squamous Epith Cells 11-20 Urine Bacteria 1+ Hyaline Casts 0-2 COVID-19 (JORDON) COVID-19 Clin Com Blood Type A Positive Antibody Screen NEGATIVE 07/23/22 08:46 MCV MCH MCHC RDW Plt Count MPV Absolute Nucleated RBC Nucleated RBC % (auto) PT INR Anion Gap Estim Creat Clear Calc Estimated GFR Random Glucose Lactic Acid Calcium Total Bilirubin Direct Bilirubin AST ALT Alkaline Phosphatase Total Protein Albumin Lipase Urine Color Urine Appearance Urine pH Ur Specific Keller Urine Protein Urine Glucose (UA) Urine Ketones Urine Blood Urine Nitrite Ur Leukocyte Esterase Urine RBC Urine WBC Ur Squamous Epith Cells Urine Bacteria Hyaline Casts COVID-19 (JORDON) Negative COVID-19 Clin Com See Note Blood Type Antibody Screen Imaging Radiologist's Impressions: Impressions Abdomen/Pelvis CT 07/23/22 08:04 IMPRESSION: Grossly abnormal right kidney status post-lithotripsy on June 03 with residual stone fragments, perinephric hemorrhage and a large subcapsular urinoma or possibly evolving hematoma. Other incidental findings described above. This critical result was discussed with Dr. Clementina Cespedes at 8:30 AM on the day of the exam, and it was ascertained that the content and urgency of the report was understood at the time of direct communication. Fleischner guidelines were followed. Chest X-Ray 07/23/22 09:43 IMPRESSION: No acute intrathoracic disease. Assessment and Plan (1) Acute blood loss anemia: Status: Acute (2) Acute UTI: Status: Acute Plan This is a 51 yo F with a PMH of recurrent nephrolithiasis who had her most recent procedure last month and subsequently developed a hematoma. She was doing farily well but for the preceding 4 to 5 days, she has developed R flank pain and symptoms of anemia. ED work up reveals a grossly abnormal CT scan and significant anemia. She will be admitted with urology consult. 1. Symptomatic Anemia, due to #2 Hb decreased >4 units from previous value (from around 12 to 8.9); repeat H/H now trend q6 hours hold aspirin consult urology transfuse below 8 or if symptoms worsen; in the meantime will give IVF 2. R Renal perinephric hemorrhage / hematoma, nephrolithasis s/p R ESWL in Jun 2022 Pain control Urology consult 3. Suspected UTI UA positive empiric rocephin 3. CAD - s/p LAD STEMI in 2014 on asa + statin + beta-blockers at baseline asa on hold due to #2 -- will need to d/w urology re: restarting observe BP today -- if stable, may restart beta-blockers at lower dose this evening continue statin 4. HTN hold antihypertensive other than beta-blockers 5. DM hold PO sliding scale and diabetic diet Continue otherbaseline meds as appropriate Full Code DVT pptx, Mechanical due to significant anemia / hematoma Quality Stroke Does the patient have a stroke diagnosis?: No VTE Prior VTE?: No VTE Risk Level:: Medical - moderate - high VTE Device Contraindication: N/A - Device Ordered VTE Drug Contraindication: Treatment Not Indicated
[2022-07-23] MEDS: Gabapentin 100 MG CAPSULE 200 MG PO ×2 (18:16→21:36)
[2022-07-23] MEDS: 0.9 % Sodium Chloride Flush 3 ML SYRINGE IVFLUSH ×2 (18:17→21:38)
[2022-07-23] MEDS: hydrOXYzine HCL 25 MG TABLET PO (18:17)
[2022-07-23 18:37] LABS: Glucose, Whole Blood 233 mg/dL (60-115)
[2022-07-23] MEDS: Insulin Lispro 100 UNIT/ML 3 ML VIAL SUBCUT ×2 (18:38→21:37)
--- NOTE | 2022-07-23 19:17 | MHC.CM.PN ---
JUNIOR 07/23. CM met with patient assigned to observation with bed assignment pending. A&Ox4. Lives with room mate, Madhavi Orr. No DME. Has daily VNA. Pt thinks they are with [facility]. CM to call [facility] to determine services. Moderna x2, no booster. (03/07/21 & 04/05/21). HCP reviewed, completed and signed. Copies given. Uploaded into [employer] and [employer]. HCP/Step Parent Virginia Akins ([phone]). D/C plan: Return home w services. No referrals placed pending verification of agency. Pt will arrange transport. CM to follow for d/c planning.
[2022-07-23 21:16] LABS: Glucose, Whole Blood 237 mg/dL (60-115)
[2022-07-23] MEDS: Melatonin 3 MG TABLET PO (21:36)
[2022-07-23] MEDS: carvediloL 6.25 MG TABLET PO (21:37)
[2022-07-24] MEDS: Omeprazole 40 MG CAPSULE.DR PO (06:14)
--- NOTE | 2022-07-24 07:00 | PC.NURSE ---
Assumed care of patient at this time.
[2022-07-24] MEDS: Insulin Lispro 100 UNIT/ML 3 ML VIAL SUBCUT ×4 (07:27→21:08)
[2022-07-24] MEDS: 0.9 % Sodium Chloride Flush 3 ML SYRINGE IVFLUSH ×3 (07:28→23:44)
[2022-07-24 07:29] LABS: Glucose, Whole Blood 186 mg/dL (60-115)
[2022-07-24] MEDS: carvediloL 6.25 MG TABLET PO (07:29)
[2022-07-24] MEDS: Gabapentin 100 MG CAPSULE 200 MG PO ×3 (07:29→21:09)
[2022-07-24] MEDS: Multivitamin TABLET 1 TAB PO (07:29)
[2022-07-24] MEDS: Sertraline HCL 100 MG TABLET PO (07:29)
[2022-07-24] MEDS: Atorvastatin Calcium 80 MG TABLET PO (07:29)
[2022-07-24] MEDS: allopurinoL 100 MG TABLET PO (07:29)
[2022-07-24 07:50] VITALS: BP 94/46; PULSE 89; RESP 18; TEMP 36.5; O2SAT 91
[2022-07-24 08:11] LABS: Hematocrit 29.1 % (37.0-47.0); Hemoglobin 8.9 g/dl (12.0-16.0); Mean Corpuscular HGB Conc 30.6 g/dl (31.0-35.0); Mean Corpuscular Hemoglobin 26.5 pg (27.0-33.0); Mean Corpuscular Volume 86.6 fL (80.0-98.0); Mean Platelet Volume 10.4 fL (9.4-12.3); Platelet Count 526 X10*3/uL (160-400); Red Blood Count 3.36 X10*6/uL (4.20-5.50); Red Cell Distribution Width 15.3 % (11.0-16.0); White Blood Count 20.7 X10*3/uL (4.8-10.8)
[2022-07-24] MEDS: hydrOXYzine HCL 25 MG TABLET PO ×2 (09:02→18:08)
[2022-07-24] MEDS: cefTRIAXone sodium 1 GM in 0.9 % Sodium Chloride 50 ML IV (09:11)
--- NOTE | 2022-07-24 10:00 | PC.NURSE ---
Per patient okay to speak with Virginia Akins (Step mother). Updated at this time. Virginia- [phone] (cellphone).
[2022-07-24 10:07] VITALS: BP 93/54
[2022-07-24] MEDS: oxyCODONE HCl Immed Release 5 MG TABLET 10 MG PO (12:02)
[2022-07-24 12:45] VITALS: BP 92/46; PULSE 88; RESP 20; O2SAT 94
[2022-07-24 13:15] LABS: Glucose, Whole Blood 220 mg/dL (60-115)
--- NOTE | 2022-07-24 13:19 | HO.PM.IMPN ---
Subjective Subjective Date of Service: 07/24/22 Interval History: seen and examined this morning follow up for UTI, perinephric hemorrhage having persistent right flank/right abdominal pain and nausea she did note pink tinged urine this morning, no gross hematuria no diarrhea. feeling a little sweaty, no chills Review of Systems Review of Systems: Yes all other systems are reviewed and are negative Constitutional Constitutional: Denies chills and Denies fever(s) ENT Ears, Nose, Mouth, and Throat: Denies dizziness Cardiovascular Cardiovascular: Denies chest pain, Denies palpitations and Denies dyspnea Respiratory Respiratory: Denies cough and Denies dyspnea Gastrointestinal Gastrointestinal: Reports abdominal pain, Denies diarrhea, Reports nausea and Denies vomiting Genitourinary Genitourinary: Reports hematuria, Denies dysuria, Reports flank pain and Denies urinary incontinence Neurologic Neurologic: Denies dizziness Endocrine Endocrine: Denies palpitations Physical Exam Vital Signs: Vital Signs: Last Vital Signs Temp 97.7 F 07/24/22 07:50 Pulse 88 07/24/22 12:45 Resp 20 07/24/22 12:45 BP 92/46 L 07/24/22 12:45 Pulse Ox 94 07/24/22 12:45 O2 Del Method 07/24/22 12:45 O2 Flow Rate 2 07/24/22 12:45 BMI result Body Mass Index 37.7 Const: General: alert and awake Nutritional Appearance: overweight Orientation/consciousness: patient oriented x3 Resp: Effort & Inspection: normal respiratory effort and able to speak in complete sentences Auscultation: diminished lung sounds Cardio: Rate: regular rate Heart sounds: S1 normal heart sound present and S2 normal heart sound present GI: Inspection: No distended Palpation (GI): Soft to palpation and nontender : General: Yes CVA tenderness on the right Back/Spine/Pelvis: Back: CVA tenderness Neuro: General: patient oriented x3 and CN's II-XI intact bilaterally Extrem: General: Yes no pedal edema Objective Data Active Medications Allopurinol (Allopurinol 100 Mg Tablet) 100 mg PO DAILY [facility] Last Admin: 07/24/22 07:29 Dose: 100 mg Documented By: BRONWYN Atorvastatin Calcium (Atorvastatin Calcium 80 Mg Tablet) 80 mg PO DAILY [facility] Last Admin: 07/24/22 07:29 Dose: 80 mg Documented By: BRONWYN Carvedilol (Carvedilol 6.25 Mg Tablet) 6.25 mg PO BID [facility]; Protocol Last Admin: 07/24/22 07:29 Dose: 6.25 mg Documented By: BRONWYN Gabapentin (Gabapentin 100 Mg Capsule) 200 mg PO TID [facility] Last Admin: 07/24/22 07:29 Dose: 200 mg Documented By: BRONWYN Hydroxyzine HCl (Hydroxyzine Hcl 25 Mg Tablet) 25 mg PO BID@0900,1700 [facility] Last Admin: 07/24/22 09:02 Dose: 25 mg Documented By: BRONWYN Ceftriaxone Sodium 1 gm/ (Sodium Chloride) 50 mls @ 100 mls/hr IV Q24H [facility] Last Infusion: 07/24/22 09:42 Dose: 0 mls/hr Documented By: BRONWYN Lactated Ringer's (Lr) 1,000 mls @ 100 mls/hr IVCONT .Q10H [facility] Insulin Human Lispro (Insulin Lispro 100 Unit/Ml 3 Ml Vial) 0 unit SUBCUT QIDACHS [facility]; Protocol Last Admin: 07/24/22 07:27 Dose: 2 unit Documented By: BRONWYN Comments: [id number] Melatonin (Melatonin 3 Mg Tablet) 3 mg PO BEDTIME [facility] Last Admin: 07/23/22 21:36 Dose: 3 mg Documented By: IMANI Multivitamins/Vitamin C (Multivitamin Tablet) 1 tab PO DAILY [facility] Last Admin: 07/24/22 07:29 Dose: 1 tab Documented By: BRONWYN Omeprazole (Omeprazole 40 Mg Марина.) 40 mg PO DAILY@0630 [facility] Last Admin: 07/24/22 06:14 Dose: 40 mg Documented By: IMANI Oxycodone HCl (Oxycodone Hcl Immed Release 5 Mg Tablet) 10 mg PO Q6H PRN PRN Reason: Pain, Severe (Pain Scale 7-10) Last Admin: 07/24/22 12:02 Dose: 10 mg Documented By: BRONWYN Pharmacy Consult (Consult Rx Perform Med Rec) 1 each MISCELLANE ONCE PRN PRN Reason: Consult order Sertraline HCl (Sertraline Hcl 100 Mg Tablet) 100 mg PO DAILY [facility] Last Admin: 07/24/22 07:29 Dose: 100 mg Documented By: BRONWYN Sodium Chloride (0.9 % Sodium Chloride Flush 3 Ml Syringe) 3 ml IVFLUSH QSHIFT [facility] Last Admin: 07/24/22 07:28 Dose: 3 ml Documented By: BRONWYN Labs CBC & Chem 7: 07/24/22 07:54 07/23/22 06:59 Labs: Laboratory Results - last 24 hr 07/23/22 07/23/22 07/24/22 18:20 21:13 07:14 MCV MCH MCHC RDW Plt Count MPV Absolute Nucleated RBC Nucleated RBC % (auto) POC Glucose 233 H 237 H 186 H 07/24/22 07/24/22 07:54 12:59 MCV 86.6 MCH 26.5 L MCHC 30.6 L RDW 15.3 Plt Count 526 H MPV 10.4 Absolute Nucleated RBC 0.000 Nucleated RBC % (auto) 0.0 POC Glucose 220 H Microbiology Microbiology Results: Microbiology 07/23/22 10:30 Urine Culture - Final Urine clean catch - Urine kerr top 07/23/22 07:30 Blood Culture - Preliminary Blood - Venous No growth after 24 hours. 07/23/22 06:59 Blood Culture - Preliminary Blood - Venous No growth after 24 hours. Assessment and Plan (1) Acute UTI: Status: Acute (2) Acute blood loss anemia: Status: Acute (3) Perinephric hematoma: Status: Acute Plan This is a 51 yo F with a PMH of recurrent nephrolithiasis who had her most recent procedure last month and subsequently developed a hematoma. She was doing farily well but for the preceding 4 to 5 days, she has developed R flank pain and symptoms of anemia. ED work up reveals a grossly abnormal CT scan and significant anemia. She will be admitted with urology consult. R Renal perinephric hemorrhage / hematoma, nephrolithasis s/p R ESWL in Jun 2022 Pain control Urology consult pending Symptomatic Anemia/acute blood loss r/t perinephric hemorrhage Hb decreased from previous value (from around 12 to 8.9) hold aspirin urology consult pending H/H stable since admission transfuse below 8 or if symptoms worsen; in the meantime will give IVF Suspected UTI UA positive and wbc trending up urine culture negative but will continue IV rocephin until seen by urology due to above CAD - s/p LAD STEMI in 2014 on asa + statin + beta-blockers at baseline asa on hold due to anemia - will need to d/w urology re: restarting Hold BB for soft BP continue statin HTN hold antihypertensives due to soft BP (on coreg, norvasc at baseline) DM hold PO sliding scale and diabetic diet Full Code Attending - dr. sheriff DVT pptx, Mechanical due to significant anemia / hematoma Requires ongoing inpatient hospitalization for management of symptomatic anemia, perinephric hematoma, UTI Quality Stroke Does the patient have a stroke diagnosis?: No VTE Prior VTE?: No VTE Risk Level:: Medical - moderate - high VTE Device Contraindication: N/A - Device Ordered VTE Drug Contraindication: Treatment Not Indicated
[2022-07-24] MEDS: Lactated Ringers 1,000 ML 100 ML IVCONT ×2 (13:50→23:44)
[2022-07-24 14:26] LABS: Anion Gap 20 (12-20); Blood Urea Nitrogen 33 mg/dL (9-16); Calcium 8.6 mg/dL (8.4-10.2); Carbon Dioxide 18 mmol/L (22-29); Chloride 100 mmol/L (96-108); Creatinine Clr Calc Pharmacy 46.7; Estimated Glomerular Filt Rate 35; Glucose Random 284 mg/dL (60-115); Potassium 5.8 mmol/L (3.3-5.1); Sodium 132 mmol/L (135-145)
[2022-07-24 16:10] LABS: Hematocrit 27.5 % (37.0-47.0); Hemoglobin 8.8 g/dl (12.0-16.0)
[2022-07-24 18:01] LABS: Glucose, Whole Blood 227 mg/dL (60-115)
--- NOTE | 2022-07-24 19:11 | PC.NURSE ---
Report given to CEFERINO Ingram at this time
[2022-07-24 20:50] LABS: Glucose, Whole Blood 227 mg/dL (60-115)
[2022-07-24] MEDS: Melatonin 3 MG TABLET PO (21:09)
[2022-07-24 23:24] VITALS: BP 118/64; PULSE 96; RESP 18; TEMP 36.6; O2SAT 90
--- NOTE | 2022-07-24 23:52 | PC.NURSE ---
Assumed care of patient at 1900. Patient alert and oriented, offers no complaints at this time. Assisted patient to bedside commode.
[2022-07-25] MEDS: Omeprazole 40 MG CAPSULE.DR PO (06:37)
--- NOTE | 2022-07-25 07:00 | PC.NURSE ---
Assumed care of patient at this time.
[2022-07-25 07:17] LABS: Glucose, Whole Blood 227 mg/dL (60-115)
[2022-07-25 07:48] VITALS: BP 107/53; PULSE 90; RESP 22; TEMP 36.1; O2SAT 91
[2022-07-25] MEDS: 0.9 % Sodium Chloride Flush 3 ML SYRINGE IVFLUSH ×2 (07:48→14:14)
[2022-07-25] MEDS: Insulin Lispro 100 UNIT/ML 3 ML VIAL SUBCUT ×4 (07:48→21:05)
[2022-07-25 07:50] LABS: Hematocrit 27.2 % (37.0-47.0); Hemoglobin 8.6 g/dl (12.0-16.0); Mean Corpuscular HGB Conc 31.6 g/dl (31.0-35.0); Mean Corpuscular Hemoglobin 26.8 pg (27.0-33.0); Mean Corpuscular Volume 84.7 fL (80.0-98.0); Mean Platelet Volume 10.3 fL (9.4-12.3); Platelet Count 535 X10*3/uL (160-400); Red Blood Count 3.21 X10*6/uL (4.20-5.50); Red Cell Distribution Width 15.3 % (11.0-16.0); White Blood Count 22.1 X10*3/uL (4.8-10.8)
[2022-07-25] MEDS: oxyCODONE HCl Immed Release 5 MG TABLET 10 MG PO ×2 (07:51→14:16)
[2022-07-25] MEDS: Sodium Zirconium Cyclosilicate 10 GM POWD.PACK PO (07:51)
[2022-07-25] MEDS: allopurinoL 100 MG TABLET PO (07:51)
[2022-07-25] MEDS: Sertraline HCL 100 MG TABLET PO (07:51)
[2022-07-25] MEDS: Multivitamin TABLET 1 TAB PO (07:51)
[2022-07-25] MEDS: Atorvastatin Calcium 80 MG TABLET PO (07:51)
[2022-07-25 08:14] LABS: Anion Gap 16 (12-20); Blood Urea Nitrogen 34 mg/dL (9-16); Calcium 7.9 mg/dL (8.4-10.2); Carbon Dioxide 20 mmol/L (22-29); Chloride 99 mmol/L (96-108); Creatinine Clr Calc Pharmacy 51.8; Estimated Glomerular Filt Rate 40; Glucose Random 236 mg/dL (60-115); Potassium 4.4 mmol/L (3.3-5.1); Sodium 131 mmol/L (135-145)
[2022-07-25] MEDS: cefTRIAXone sodium 1 GM in 0.9 % Sodium Chloride 50 ML IV (08:30)
--- NOTE | 2022-07-25 10:32 | P.PNIM_ITS ---
Subjective Subjective Date of Service: 07/25/22 Interval History: seen and examined this morning follow up for anemia, perinephric hematoma still with right side flank/abdominal pain nausea has improved. no vomiting. tolerating diet Review of Systems Review of Systems: Yes all other systems are reviewed and are negative Constitutional Constitutional: Denies chills and Denies fever(s) ENT Ears, Nose, Mouth, and Throat: Denies dizziness Cardiovascular Cardiovascular: Denies chest pain, Denies palpitations and Denies dyspnea Respiratory Respiratory: Denies cough and Denies dyspnea Gastrointestinal Gastrointestinal: Denies abdominal pain Neurologic Neurologic: Denies dizziness Endocrine Endocrine: Denies palpitations Physical Exam Vital Signs: Vital Signs: Last Vital Signs Temp 97.0 F 07/25/22 07:48 Pulse 90 07/25/22 07:48 Resp 22 H 07/25/22 07:48 BP 107/53 L 07/25/22 07:48 Pulse Ox 91 L 07/25/22 07:48 O2 Del Method 07/25/22 07:48 O2 Flow Rate 2 07/25/22 07:48 BMI result Body Mass Index 37.7 Const: General: alert and awake Nutritional Appearance: overweight Orientation/consciousness: patient oriented x3 Resp: Effort & Inspection: normal respiratory effort and able to speak in complete sentences Auscultation: clear to auscultation bilaterally, no c rackles, no rhonchi and no wheezes Cardio: Rate: regular rate Heart sounds: S1 normal heart sound present and S2 normal heart sound present GI: Other: no guarding or rebound; +BS Inspection: No distended Palpation (GI): Soft to palpation : General: Yes CVA tenderness on the right Back/Spine/Pelvis: Back: CVA tenderness Neuro: General: patient oriented x3 and CN's II-XI intact bilaterally Extrem: Other: Able to move all 4 extremities spontaneously General: Yes no pedal edema Objective Data Active Medications Allopurinol (Allopurinol 100 Mg Tablet) 100 mg PO DAILY [facility] Last Admin: 07/25/22 07:51 Dose: 100 mg Documented By: BRONWYN Atorvastatin Calcium (Atorvastatin Calcium 80 Mg Tablet) 80 mg PO DAILY [facility] Last Admin: 07/25/22 07:51 Dose: 80 mg Documented By: BRONWYN Carvedilol (Carvedilol 6.25 Mg Tablet) 6.25 mg PO BID [facility]; Protocol Last Admin: 07/24/22 07:29 Dose: 6.25 mg Documented By: BRONWYN Gabapentin (Gabapentin 100 Mg Capsule) 200 mg PO TID [facility] Last Admin: 07/24/22 21:09 Dose: 200 mg Documented By: JORDAN Hydroxyzine HCl (Hydroxyzine Hcl 25 Mg Tablet) 25 mg PO BID@0900,1700 [facility] Last Admin: 07/24/22 18:08 Dose: 25 mg Documented By: BRONWYN Ceftriaxone Sodium 1 gm/ (Sodium Chloride) 50 mls @ 100 mls/hr IV Q24H [facility] Last Infusion: 07/24/22 09:42 Dose: 0 mls/hr Documented By: BRONWYN Lactated Ringer's (Lr) 1,000 mls @ 100 mls/hr IVCONT .Q10H [facility] Last Admin: 07/24/22 23:44 Dose: 100 mls/hr Documented By: TIM Insulin Human Lispro (Insulin Lispro 100 Unit/Ml 3 Ml Vial) 0 unit SUBCUT QIDACHS [facility]; Protocol Last Admin: 07/25/22 07:48 Dose: 4 unit Documented By: BRONWYN Melatonin (Melatonin 3 Mg Tablet) 3 mg PO BEDTIME [facility] Last Admin: 07/24/22 21:09 Dose: 3 mg Documented By: JORDAN Multivitamins/Vitamin C (Multivitamin Tablet) 1 tab PO DAILY [facility] Last Admin: 07/25/22 07:51 Dose: 1 tab Documented By: BRONWYN Omeprazole (Omeprazole 40 Mg Марина.) 40 mg PO DAILY@0630 [facility] Last Admin: 07/25/22 06:37 Dose: 40 mg Documented By: TIM Oxycodone HCl (Oxycodone Hcl Immed Release 5 Mg Tablet) 10 mg PO Q6H PRN PRN Reason: Pain, Severe (Pain Scale 7-10) Last Admin: 07/25/22 07:51 Dose: 10 mg Documented By: BRONWYN Pharmacy Consult (Consult Rx Perform Med Rec) 1 each MISCELLANE ONCE PRN PRN Reason: Consult order Sertraline HCl (Sertraline Hcl 100 Mg Tablet) 100 mg PO DAILY [facility] Last Admin: 07/25/22 07:51 Dose: 100 mg Documented By: BRONWYN Sodium Chloride (0.9 % Sodium Chloride Flush 3 Ml Syringe) 3 ml IVFLUSH QSHIFT [facility] Last Admin: 07/25/22 07:48 Dose: 3 ml Documented By: BRONWYN Labs CBC & Chem 7: 07/25/22 07:42 07/25/22 07:42 Labs: Laboratory Results - last 24 hr 07/24/22 07/24/22 07/24/22 12:59 14:00 17:56 MCV MCH MCHC RDW Plt Count MPV Absolute Nucleated RBC Nucleated RBC % (auto) Anion Gap 20 Estim Creat Clear Calc 46.7 Estimated GFR 35 POC Glucose 220 H 227 H Random Glucose 284 H Calcium 8.6 07/24/22 07/25/22 07/25/22 20:47 07:14 07:42 MCV 84.7 MCH 26.8 L MCHC 31.6 RDW 15.3 Plt Count 535 H MPV 10.3 Absolute Nucleated RBC 0.000 Nucleated RBC % (auto) 0.0 Anion Gap Estim Creat Clear Calc Estimated GFR POC Glucose 227 H 227 H Random Glucose Calcium 07/25/22 07:42 MCV MCH MCHC RDW Plt Count MPV Absolute Nucleated RBC Nucleated RBC % (auto) Anion Gap 16 Estim Creat Clear Calc 51.8 Estimated GFR 40 POC Glucose Random Glucose 236 H Calcium 7.9 L D Microbiology Microbiology Results: Microbiology 07/23/22 06:59 Blood Culture - Preliminary Blood - Venous No growth after 48 hours. 07/23/22 07:30 Blood Culture - Preliminary Blood - Venous Prelim: GPR Gram Stain only 07/23/22 10:30 Urine Culture - Final Urine clean catch - Urine kerr top Assessment and Plan (1) Acute blood loss anemia: Status: Acute (2) Perinephric hematoma: Status: Acute (3) Acute UTI: Status: Acute Plan This is a 51 yo F with a PMH of recurrent nephrolithiasis who had her most recent procedure last month and subsequently developed a hematoma. She was doing farily well but for the preceding 4 to 5 days, she has developed R flank pain and symptoms of anemia. ED work up reveals a grossly abnormal CT scan and significant anemia. She will be admitted with urology consult. R Renal perinephric hemorrhage / hematoma, nephrolithasis s/p R ESWL in Jun 2022 Pain control Urology consult pending Symptomatic Anemia/acute blood loss r/t perinephric hemorrhage Hb decreased from previous value (from around 12 to 8.9) hold aspirin urology consult pending H/H stable since admission transfuse below 8 or if symptoms worsen Suspected UTI UA positive and wbc trending up urine culture negative but urology recommends 14 days of abx, continue IV ceftriaxone for now and transition to po ceftin on discharge MELODIE on ckd 3 creatinine up to 1.54, down to 1.3 today with IVF -follow BMP Hyperkalemia likely r/t MELODIE resolved -follow BMP CAD - s/p LAD STEMI in 2014 on asa + statin + beta-blockers at baseline asa on hold due to anemia - will need to d/w urology re: restarting Hold BB for soft BP continue statin HTN hold antihypertensives due to soft BP, resume as tolerated (on coreg, norvasc at baseline) DM hold PO sliding scale and diabetic diet Full Code Attending - dr. Sandoval DVT pptx, Mechanical due to significant anemia / hematoma Requires ongoing inpatient hospitalization for management of symptomatic anemia, perinephric hematoma, UTI Quality Stroke Does the patient have a stroke diagnosis?: No VTE Prior VTE?: No VTE Risk Level:: Medical - moderate - high VTE Device Contraindication: N/A - Device Ordered VTE Drug Contraindication: Treatment Not Indicated
[2022-07-25] MEDS: Gabapentin 100 MG CAPSULE 200 MG PO ×3 (10:33→21:05)
[2022-07-25] MEDS: Lactated Ringers 1,000 ML 100 ML IVCONT ×2 (10:34→21:12)
[2022-07-25 11:37] VITALS: BP 127/65; PULSE 88; RESP 16; TEMP 35.9; O2SAT 93
[2022-07-25 13:36] LABS: Glucose, Whole Blood 178 mg/dL (60-115)
[2022-07-25 16:10] LABS: Glucose, Whole Blood 185 mg/dL (60-115)
[2022-07-25 16:49] VITALS: BP 111/62; PULSE 93; RESP 18; TEMP 37.1; O2SAT 97
[2022-07-25] MEDS: hydrOXYzine HCL 25 MG TABLET PO (17:11)
--- NOTE | 2022-07-25 19:03 | PC.NURSE ---
Report given to CEFERINO Saha assuming care of patient at this time.
[2022-07-25 19:30] VITALS: BP 138/69; PULSE 98; RESP 18; TEMP 37.4; O2SAT 98
[2022-07-25 20:13] LABS: Glucose, Whole Blood 173 mg/dL (60-115)
[2022-07-25] MEDS: Melatonin 3 MG TABLET PO (21:05)
[2022-07-26 00:07] VITALS: BP 113/58; PULSE 76; RESP 18; TEMP 37; O2SAT 98
--- NOTE | 2022-07-26 00:41 | PC.NURSE ---
Pt stable, no pain, mostly sleeping. Pt IV in her AC, due to downstream occulusion pt has turned off her own IV mult times, educated pt on not touching pumps and need for continued fluids. Call espinal and personal items within reach
[2022-07-26 04:00] VITALS: BP 102/55; PULSE 90; RESP 16; TEMP 36.9; O2SAT 90
[2022-07-26 05:23] LABS: Hematocrit 26.2 % (37.0-47.0); Hemoglobin 8.2 g/dl (12.0-16.0); Mean Corpuscular HGB Conc 31.3 g/dl (31.0-35.0); Mean Corpuscular Hemoglobin 26.9 pg (27.0-33.0); Mean Corpuscular Volume 85.9 fL (80.0-98.0); Platelet Count 501 X10*3/uL (160-400); Red Blood Count 3.05 X10*6/uL (4.20-5.50); Red Cell Distribution Width 15.6 % (11.0-16.0)
[2022-07-26 05:59] LABS: Anion Gap 16 (12-20); Blood Urea Nitrogen 35 mg/dL (9-16); Calcium 8.5 mg/dL (8.4-10.2); Carbon Dioxide 22 mmol/L (22-29); Chloride 99 mmol/L (96-108); Creatinine Clr Calc Pharmacy 53.3; Estimated Glomerular Filt Rate 41; Glucose Random 161 mg/dL (60-115); Potassium 4.4 mmol/L (3.3-5.1); Sodium 133 mmol/L (135-145)
[2022-07-26] MEDS: Omeprazole 40 MG CAPSULE.DR PO (07:02)
[2022-07-26 07:22] VITALS: BP 141/80; PULSE 95; RESP 18; TEMP 36.7; O2SAT 84
[2022-07-26 07:39] LABS: Glucose, Whole Blood 136 mg/dL (60-115)
[2022-07-26] MEDS: Multivitamin TABLET 1 TAB PO (08:32)
[2022-07-26] MEDS: Gabapentin 100 MG CAPSULE 200 MG PO ×3 (08:33→19:53)
[2022-07-26] MEDS: Sertraline HCL 100 MG TABLET PO (08:33)
[2022-07-26] MEDS: allopurinoL 100 MG TABLET PO (08:33)
[2022-07-26] MEDS: 0.9 % Sodium Chloride Flush 3 ML SYRINGE IVFLUSH (08:33)
[2022-07-26] MEDS: Atorvastatin Calcium 80 MG TABLET PO (08:33)
[2022-07-26] MEDS: cefTRIAXone sodium 1 GM in 0.9 % Sodium Chloride 50 ML IV (08:38)
[2022-07-26] MEDS: hydrOXYzine HCL 25 MG TABLET PO ×2 (10:03→17:34)
--- NOTE | 2022-07-26 10:31 | P.PNIM_ITS ---
Subjective Subjective Date of Service: 07/26/22 Interval History: seen and examined this morning follow up for anemia, perinephric hematoma still with right side flank/abdominal pain nausea has improved. no vomiting. tolerating diet no sob despite reported low O2 sat Review of Systems no sob no dizzness flank pain as above Physical Exam Vital Signs: Vital Signs: Last Vital Signs Temp 98.1 F 07/26/22 07:22 Pulse 95 07/26/22 07:22 Resp 18 07/26/22 07:22 BP 141/80 H 07/26/22 07:22 Pulse Ox 95 07/26/22 07:22 O2 Del Method 07/26/22 07:22 O2 Flow Rate 3 07/26/22 07:22 BMI result Body Mass Index 37.7 Const: Other: Constitutional - Awake and Alert, No apparent distress Eyes - PERRLA, EOMI Cardiovascular - S1S2, RRR, No edema Respiratory - Normal lung expansion, Normal respiratory effort, No respiratory distress, CTA bilaterally Gastrointestinal - NT / ND; +BS; No rebound or guarding - R CVA TTP, no bruising/palpapable mass noted Extremities - no calf tenderness bilaterally, no swelling Musculoskeletal - Normal inspection, normal ROM Skin - Warm/Dry Neurological - Alert & oriented x3, No focal deficit Psychological - Appropriate affect Objective Data Active Medications Allopurinol (Allopurinol 100 Mg Tablet) 100 mg PO DAILY [facility] OF [facility] Last Admin: 07/26/22 08:33 Dose: 100 mg Documented By: JAKUB Atorvastatin Calcium (Atorvastatin Calcium 80 Mg Tablet) 80 mg PO DAILY ON [facility] OF [facility] Last Admin: 07/26/22 08:33 Dose: 80 mg Documented By: JAKUB Carvedilol (Carvedilol 6.25 Mg Tablet) 6.25 mg PO BID [facility] OF [facility]; Protocol Last Admin: 07/24/22 07:29 Dose: 6.25 mg Documented By: BRONWYN Gabapentin (Gabapentin 100 Mg Capsule) 200 mg PO TID ON [facility] OF [facility] Last Admin: 07/26/22 08:33 Dose: 200 mg Documented By: JAKUB Hydroxyzine HCl (Hydroxyzine Hcl 25 Mg Tablet) 25 mg PO BID@0900,1700 [facility] OF [facility] Last Admin: 07/26/22 10:03 Dose: 25 mg Documented By: JAKUB Ceftriaxone Sodium 1 gm/ (Sodium Chloride) 50 mls @ 100 mls/hr IV Q24H [facility] OF [facility] Last Infusion: 07/26/22 09:34 Dose: 0 mls/hr Documented By: IMANI Lactated Ringer's (Lr) 1,000 mls @ 100 mls/hr IVCONT .Q10H ON [facility] OF [facility] Last Infusion: 07/26/22 07:45 Dose: 0 mls/hr Documented By: IMANI Insulin Human Lispro (Insulin Lispro 100 Unit/Ml 3 Ml Vial) 0 unit SUBCUT QIDACHS ON [facility] OF [facility]; Protocol Last Admin: 07/26/22 07:47 Dose: Not Given Documented By: IMANI Non-Admin Reason: No Insulin Coverage Melatonin (Melatonin 3 Mg Tablet) 3 mg PO BEDTIME ON LICENSE OF [facility] Last Admin: 07/25/22 21:05 Dose: 3 mg Documented By: WILIAN Multivitamins/Vitamin C (Multivitamin Tablet) 1 tab PO DAILY [facility] Last Admin: 07/26/22 08:32 Dose: 1 tab Documented By: JAKUB Omeprazole (Omeprazole 40 Mg Capsule.Dr) 40 mg PO DAILY@0630 [facility] Last Admin: 07/26/22 07:02 Dose: 40 mg Documented By: SKY Oxycodone HCl (Oxycodone Hcl Immed Release 5 Mg Tablet) 10 mg PO Q6H PRN PRN Reason: Pain, Severe (Pain Scale 7-10) Last Admin: 07/25/22 14:16 Dose: 10 mg Documented By: BRONWYN Pharmacy Consult (Consult Rx Perform Med Rec) 1 each MISCELLANE ONCE PRN PRN Reason: Consult order Sertraline HCl (Sertraline Hcl 100 Mg Tablet) 100 mg PO DAILY ON [facility] Last Admin: 07/26/22 08:33 Dose: 100 mg Documented By: JAKUB Sodium Chloride (0.9 % Sodium Chloride Flush 3 Ml Syringe) 3 ml IVFLUSH QSHIFT ON LICENSE OF [facility] Last Admin: 07/26/22 08:33 Dose: 3 ml Documented By: JAKUB Labs CBC & Chem 7: 07/26/22 04:29 07/26/22 04:29 Labs: Laboratory Results - last 24 hr 07/25/22 07/25/22 07/25/22 13:33 16:06 19:57 MCV MCH MCHC RDW Plt Count MPV Absolute Nucleated RBC Nucleated RBC % (auto) Anion Gap Estim Creat Clear Calc Estimated GFR POC Glucose 178 H 185 H 173 H Random Glucose Calcium 07/26/22 07/26/22 07/26/22 04:29 04:29 07:17 MCV 85.9 MCH 26.9 L MCHC 31.3 RDW 15.6 Plt Count 501 H MPV 11.0 Absolute Nucleated RBC 0.000 Nucleated RBC % (auto) 0.0 Anion Gap 16 Estim Creat Clear Calc 53.3 Estimated GFR 41 POC Glucose 136 H Random Glucose 161 H Calcium 8.5 D Microbiology Microbiology Results: Microbiology 07/23/22 07:30 Blood Culture - Final Blood - Venous Corynebacterium species 07/23/22 06:59 Blood Culture - Preliminary Blood - Venous No growth after 48 hours. Assessment and Plan (1) Acute blood loss anemia: Status: Acute (2) Perinephric hematoma: Status: Acute (3) Acute UTI: Status: Acute Plan 51 yo F with a PMH of recurrent nephrolithiasis who had her most recent procedure last month and subsequently developed a hematoma. She was doing farily well but for the preceding 4 to 5 days, she has developed R flank pain and symptoms of anemia. ED work up reveals a grossly abnormal CT scan and significant anemia. She will be admitted with urology consult. R Renal perinephric hemorrhage / hematoma, nephrolithasis s/p R ESWL in Jun 2022 Pain control Urology consult pending Symptomatic Anemia/acute blood loss r/t perinephric hemorrhage Hb decreased from previous value (from around 12 to 8.9) hold aspirin urology consult pending H/H stable since admission transfuse below 8 or if symptoms worsen Suspected UTI UA positive and wbc trending down urine culture negative but urology recommends 14 days of abx, continue IV ceftriaxone for now and transition to po ceftin on discharge MELODIE on ckd 3 creatinine down to 1.3, down to 1.3 today with IVF -follow BMP Hyperkalemia likely r/t MELODIE resolved -follow BMP CAD - s/p LAD STEMI in 2014 on asa + statin + beta-blockers at baseline asa on hold due to anemia - will need to d/w urology re: restarting Hold BB for soft BP continue statin HTN hold antihypertensives due to soft BP, resume as tolerated (on coreg, norvasc at baseline) DM hold PO sliding scale and diabetic diet Full Code DVT pptx, Mechanical due to significant anemia / hematoma Requires ongoing inpatient hospitalization for management of symptomatic anemia, perinephric hematoma, UTI Quality Stroke Does the patient have a stroke diagnosis?: No VTE Prior VTE?: No VTE Risk Level:: Medical - moderate - high VTE Device Contraindication: N/A - Device Ordered VTE Drug Contraindication: Treatment Not Indicated
[2022-07-26 10:34] VITALS: O2SAT 95
[2022-07-26 12:19] LABS: Glucose, Whole Blood 206 mg/dL (60-115)
[2022-07-26] MEDS: Insulin Lispro 100 UNIT/ML 3 ML VIAL SUBCUT ×3 (12:28→22:14)
[2022-07-26] MEDS: 0.9 % Sodium Chloride 1,000 ML 100 ML IVCONT ×2 (12:30→22:56)
[2022-07-26 13:39] VITALS: BP 123/63; PULSE 84; RESP 16; TEMP 36.8; O2SAT 93
[2022-07-26 16:32] LABS: Glucose, Whole Blood 206 mg/dL (60-115)
[2022-07-26] MEDS: oxyCODONE HCl Immed Release 5 MG TABLET 10 MG PO (17:36)
[2022-07-26] MEDS: Melatonin 3 MG TABLET PO (19:53)
[2022-07-26 20:00] VITALS: BP 118/62; PULSE 72; RESP 16; TEMP 36.3; O2SAT 95
[2022-07-26 20:49] LABS: Glucose, Whole Blood 253 mg/dL (60-115)
[2022-07-27] VITALS (7 sets, daily range): BP systolic 101–127; BP diastolic 59–71; PULSE 78–102; RESP 14–18; TEMP 36.3–36.8; O2SAT 94–96
[2022-07-27] MEDS: oxyCODONE HCl Immed Release 5 MG TABLET 10 MG PO (02:17)
--- NOTE | 2022-07-27 04:14 | PC.NURSE ---
Patient is alert and oriented x5. VSS. O2 Sat 95% on O2 at 3 LPM NC. R AC 20 g IV line flushed with NS, no resistance met. IV pump has been beeping down stream occlusion multiple times-RN instructed patient to keep her arm straight to prevent IV pump beeping/infusion interruption. Patient verbalized understanding. R arm placed on the pillow.
[2022-07-27] MEDS: Omeprazole 40 MG CAPSULE.DR PO (05:54)
[2022-07-27 07:30] LABS: Glucose, Whole Blood 210 mg/dL (60-115)
[2022-07-27] MEDS: cefTRIAXone sodium 1 GM in 0.9 % Sodium Chloride 50 ML IV (08:14)
[2022-07-27] MEDS: Insulin Lispro 100 UNIT/ML 3 ML VIAL SUBCUT ×4 (08:15→20:54)
[2022-07-27] MEDS: Multivitamin TABLET 1 TAB PO (08:15)
[2022-07-27] MEDS: Atorvastatin Calcium 80 MG TABLET PO (08:15)
[2022-07-27] MEDS: Sertraline HCL 100 MG TABLET PO (08:15)
[2022-07-27] MEDS: hydrOXYzine HCL 25 MG TABLET PO ×2 (08:15→17:19)
[2022-07-27] MEDS: allopurinoL 100 MG TABLET PO (08:15)
[2022-07-27] MEDS: Gabapentin 100 MG CAPSULE 200 MG PO ×3 (08:18→20:54)
[2022-07-27] MEDS: 0.9 % Sodium Chloride Flush 3 ML SYRINGE IVFLUSH ×2 (08:20→17:19)
--- NOTE | 2022-07-27 08:42 | P.DS_ITS ---
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 She reports associated poor oral intake and chills. She denies any fevers. Denies any dysuria, frequency, urgency or hematuria. She reports symptoms of anemia including dysnea on exertion and fatigue. She denies anginal chest symptoms. She reports intermittent flank pain since the procedure, but over the last 4-5 days it has been unrelenting and hence she presented to the ED. Work up in the ED revealed a grossly abnormal R kidney (see radiology report for full details). Her H/H was significantly lower from her prior values (dropped from around 12 to 8). Her case was d/w with urology (by the ED provider) and the pt will now be admitted for further care. Hospital course: ?51 yo F with a PMH of recurrent nephrolithiasis who had her most recent procedure last month and subsequently developed a hematoma. She was doing farily well but for the preceding 4 to 5 days, she has developed R flank pain and symptoms of anemia. ED work up reveals a grossly abnormal CT scan and significant anemia. She will be admitted with urology consult. Nephrolithasis s/p R ESWL in Jun 2022 complicated by Rgight Renal perinephric hemorrhage / hematoma, Urology is recommending no intervention, just conservative management.. At this time her pain is singificantly better Symptomatic Anemia/acute blood loss r/t perinephric hemorrhage Hb decreased from previous value (from around 12 to 8.9) hold aspirin urology consult pending H/H stable since admission transfuse below 8 or if symptoms worsen Suspected UTI-- urine cultures negative. She has been treated with ceftriaxone while in the hospital. Dr. Farr recommend 2 weeks of antibiotics. She will be transitioned to Ceftin at discharge MELODIE on ckd 3 creatinine down to 1.54, down to 1.3 as of 07/26 Hyperkalemia--treated with Lokelma and resolved, last K 4 CAD - s/p LAD STEMI in 2014 on asa + statin + beta-blockers at baseline asa on hold due to anemia -Probably should be on hold for next 2 weeks HTN--Norvasc, Coreg were on hold due to low BP but now within normal limit. DM--resume prior meds at discharge Leukocytosis--likely reactive from hematoma, no evidence of acute infection, 1/2 corynebacterium speices is contramination. Time Spent with Patient Time attestation: Total time spent providing and/or coordinating discharge services: Discharge coordination time: Greater than 30 minutes Quality: Safe Use of Opioids Does Pt have an Active Cancer Diagnosis on the Problem List?: No Quality: Stroke Does the patient have a stroke diagnosis?: No Physical Exam Vital Signs: Vital Signs: Selected Entries 07/28/22 07:13 Temperature 97.9 F Pulse Rate 85 Respiratory Rate 20 Blood Pressure 124/66 Pulse Oximetry 93 Oxygen Flow Rate 2.5 DS: Data Data Completed and Pending Completed studies during hospitalization [Text1]: Procedures Dilation of Right Ureter with Intraluminal Device, Via Natural or Artificial Opening Endoscopic (10/21/21) Fluoroscopy of Right Kidney, Ureter and Bladder (10/21/21) Labs on day of discharge: Laboratory Results - last 24 hr 07/26/22 07/26/22 07/26/22 12:15 16:19 20:42 POC Glucose 206 H 206 H 253 H 07/27/22 07:24 POC Glucose 210 H Preliminary micro results at discharge 07/23/22 06:59 Blood Culture - Preliminary Blood - Venous No growth after 48 hours. Discharge Plan Discharge Anticipated Discharge Date/Time: 07/28/22 10:50 Patient Disposition: Home, Self-Care Discharge Diagnosis: Perinephric hematoma, anemia, UTI Referrals: Leroy Farr MD [Physician] - 2 Weeks (follow on kidney hematoma) Rancho Duarte MD [Primary Care Provider] - 1 Week Discharge Medications: New cefuroxime axetil 250 mg tablet 250 mg PO BID 8 Days Qty: 16 0RF Continued sertraline 100 mg tablet 100 mg PO DAILY Qty: 30 3RF carvedilol 12.5 mg tablet 12.5 mg PO BID Qty: 60 3RF omeprazole 40 mg capsule,delayed release(DR/EC) 40 mg PO DAILY Qty: 30 3RF atorvastatin 80 mg tablet 80 mg PO DAILY Qty: 30 3RF gabapentin 100 mg capsule 200 mg PO TID Qty: 180 3RF albuterol sulfate 90 mcg/actuation HFA aerosol inhaler 1 puff PO QID PRN (Reason: for dyspnea) Qty: 6.7 1RF (DME) lancets [FreeStyle Lancets] 28 gauge misc See Rx Instructions .Route Qty: 100 1RF Rx Instructions: Test 3 times daily (DME) blood-glucose meter [Freestyle [employer]] Misc See Rx Instructions .Route Qty: 1 0RF Rx Instructions: As directed ergocalciferol (vitamin D2) [Vitamin D2] 1,250 mcg (50,000 unit) capsule 1,250 mcg PO SA Label Comments: on saturdays metformin 500 mg tablet 500 mg PO DAILY@1200 amlodipine [Norvasc] 5 mg tablet 5 mg PO BEDTIME insulin aspart U-100 [Novolog Flexpen U-100 Insulin] 100 unit/mL (3 mL) insulin pen 22 unit subcut DAILY aspirin 81 mg tablet,delayed release (DR/EC) 81 mg PO DAILY melatonin 3 mg tablet 3 mg PO BEDTIME Label Comments: OTC per pt One Daily Multi-Vit w-Mineral 4.5 mg iron tablet 1 tab PO DAILY Label Comments: OTC per pt hydroxyzine pamoate 25 mg capsule 25 mg PO BID@0900,1700 (DME) pen needle, diabetic [BD Ultra-Fine Gi Pen Needle] 32 gauge x 5/32 needle See Rx Instructions subcut DAILY Qty: 50 Rx Instructions: As directed allopurinol 100 mg tablet 100 mg PO DAILY 90 Days Qty: 90 1RF pyridoxine (vitamin B6) 100 mg tablet 100 mg PO DAILY 90 Days Qty: 90 1RF Discharge Orders: Discharge Order (Routine); Ordered 07/28/22 Ordered By: Alexander Fried Diet: Advance to usual diet Activity on Discharge: As tolerated Stand Alone Forms: Patient Portal Discharge page Other Ambulatory Orders: Complete Blood Count no Diff (Routine) Timeframe: 1 Week Facility: [facility] - Location: Laboratory Ordered By: Alexander Paniagua Care Plan Goals: Full recovery from anemia, hematoma and UTI Health Concerns: kidney hematoma, uti, leukocytosis Plan of Treatment: Take Cefuroxime as direcated and follow up with your Doctor in a week Follow up with Dr. Farr within 2 weeks have blood count check within a wee Assessment: as above
--- NOTE | 2022-07-27 09:06 | P.PNIM_ITS ---
Subjective Subjective Date of Service: 07/27/22 Interval History: seen in f/u for perinephric hematoma, anemia, uti, renal failure interval history: flank pain is much better, no fever Review of Systems no sob no dizzness flank pain as above Physical Exam Vital Signs: Vital Signs: Last Vital Signs Temp 97.3 F 07/27/22 08:59 Pulse 79 07/27/22 08:59 Resp 14 07/27/22 08:59 BP 113/71 07/27/22 08:59 Pulse Ox 95 07/27/22 08:59 O2 Del Method 07/27/22 08:59 O2 Flow Rate 2.5 07/27/22 08:59 BMI result Body Mass Index 37.7 Const: Other: Constitutional - Awake and Alert, No apparent distress Eyes - PERRLA, EOMI Cardiovascular - S1S2, RRR, No edema Respiratory - Normal lung expansion, Normal respiratory effort, No respiratory distress, CTA bilaterally Gastrointestinal - NT / ND; +BS; No rebound or guarding - R CVA TTP, no bruising/palpapable mass noted Extremities - no calf tenderness bilaterally, no swelling Musculoskeletal - Normal inspection, normal ROM Skin - Warm/Dry Neurological - Alert & oriented x3, No focal deficit Psychological - Appropriate affect Objective Data Active Medications Allopurinol (Allopurinol 100 Mg Tablet) 100 mg PO DAILY [facility] Last Admin: 07/27/22 08:15 Dose: 100 mg Documented By: CHERYL Atorvastatin Calcium (Atorvastatin Calcium 80 Mg Tablet) 80 mg PO DAILY [facility] Last Admin: 07/27/22 08:15 Dose: 80 mg Documented By: CHERYL Carvedilol (Carvedilol 6.25 Mg Tablet) 6.25 mg PO BID [facility]; Protocol Last Admin: 07/24/22 07:29 Dose: 6.25 mg Documented By: ISIDRO-MATT Gabapentin (Gabapentin 100 Mg Capsule) 200 mg PO TID [facility] Last Admin: 07/27/22 08:18 Dose: 200 mg Documented By: CHERYL Hydroxyzine HCl (Hydroxyzine Hcl 25 Mg Tablet) 25 mg PO BID@0900,1700 [facility] Last Admin: 07/27/22 08:15 Dose: 25 mg Documented By: CHERYL Ceftriaxone Sodium 1 gm/ (Sodium Chloride) 50 mls @ 100 mls/hr IV Q24H [facility] Last Infusion: 07/27/22 08:50 Dose: 0 mls/hr Documented By: CHERYL Sodium Chloride (Ns) 1,000 mls @ 100 mls/hr IVCONT .Q10H [facility] Last Admin: 07/26/22 22:56 Dose: 100 mls/hr Documented By: ALMA Insulin Human Lispro (Insulin Lispro 100 Unit/Ml 3 Ml Vial) 0 unit SUBCUT QIDACHS [facility]; Protocol Last Admin: 07/27/22 08:15 Dose: 4 unit Documented By: CHERYL Melatonin (Melatonin 3 Mg Tablet) 3 mg PO BEDTIME [facility] Last Admin: 07/26/22 19:53 Dose: 3 mg Documented By: ALMA Multivitamins/Vitamin C (Multivitamin Tablet) 1 tab PO DAILY [facility] Last Admin: 07/27/22 08:15 Dose: 1 tab Documented By: CHERYL Omeprazole (Omeprazole 40 Mg Capsule.Dr) 40 mg PO DAILY@0630 [facility] Last Admin: 07/27/22 05:54 Dose: 40 mg Documented By: IRASEMA Oxycodone HCl (Oxycodone Hcl Immed Release 5 Mg Tablet) 10 mg PO Q6H PRN PRN Reason: Pain, Severe (Pain Scale 7-10) Last Admin: 07/27/22 02:17 Dose: 10 mg Documented By: IRASEMA Pharmacy Consult (Consult Rx Perform Med Rec) 1 each MISCELLANE ONCE PRN PRN Reason: Consult order Sertraline HCl (Sertraline Hcl 100 Mg Tablet) 100 mg PO DAILY [facility] Last Admin: 07/27/22 08:15 Dose: 100 mg Documented By: CHERYL Sodium Chloride (0.9 % Sodium Chloride Flush 3 Ml Syringe) 3 ml IVFLUSH QSHIFT [facility] Last Admin: 07/27/22 08:20 Dose: 3 ml Documented By: CHERYL Labs CBC & Chem 7: 07/26/22 04:29 07/26/22 04:29 Labs: Laboratory Results - last 24 hr 07/26/22 07/26/22 07/26/22 12:15 16:19 20:42 POC Glucose 206 H 206 H 253 H 07/27/22 07:24 POC Glucose 210 H Microbiology Microbiology Results: Microbiology 07/23/22 07:30 Blood Culture - Final Blood - Venous Corynebacterium species Assessment and Plan (1) Acute blood loss anemia: Status: Acute (2) Perinephric hematoma: Status: Acute (3) Acute UTI: Status: Acute Plan ? 51 yo F with a PMH of recurrent nephrolithiasis who had her most recent procedure last month and subsequently developed a hematoma. She was doing farily well but for the preceding 4 to 5 days, she has developed R flank pain and symptoms of anemia. ED work up reveals a grossly abnormal CT scan and significant anemia. She will be admitted with urology consult. Nephrolithasis s/p R ESWL in Jun 2022 complicated by Rgight Renal perinephric hemorrhage / hematoma, Urology is recommending no intervention, just conservative management.. At this time her pain is singificantly better Symptomatic Anemia/acute blood loss r/t perinephric hemorrhage Hb decreased from previous value (from around 12 to 8.9) Asprin has been on hold, did not require transfusion. check CBC 1/2 Corynebacterium species in blood--likely contamination. Suspected UTI-- urine cultures negative. She has been treated with ceftriaxone while in the hospital. Dr. Farr recommend 2 weeks of antibiotics. She will be transitioned to Ceftin at discharge MELODIE on ckd 3 creatinine down to 1.54, down to 1.3 as of 07/26 Hyperkalemia--treated with Lokelma and resolved, last K 4 CAD - s/p LAD STEMI in 2014 on asa + statin + beta-blockers at baseline asa on hold due to anemia -Probably should be on hold for next 2 weeks HTN--Norvasc, Coreg were on hold due to low BP but now within normal limit. DM--resume prior meds at discharge Full Code DVT pptx, Mechanical due to significant anemia / hematoma Requires ongoing inpatient hospitalization for management of symptomatic anemia, perinephric hematoma, UTI on IV Abx, possible d/c today if clear by urology Quality Stroke Does the patient have a stroke diagnosis?: No VTE Prior VTE?: No VTE Risk Level:: Medical - moderate - high VTE Device Contraindication: N/A - Device Ordered VTE Drug Contraindication: Treatment Not Indicated
[2022-07-27 09:38] LABS: Hematocrit 28.1 % (37.0-47.0); Hemoglobin 8.5 g/dl (12.0-16.0); Mean Corpuscular HGB Conc 30.2 g/dl (31.0-35.0); Mean Corpuscular Hemoglobin 26.2 pg (27.0-33.0); Mean Corpuscular Volume 86.5 fL (80.0-98.0); Mean Platelet Volume 10.5 fL (9.4-12.3); Platelet Count 580 X10*3/uL (160-400); Red Blood Count 3.25 X10*6/uL (4.20-5.50); Red Cell Distribution Width 15.4 % (11.0-16.0); White Blood Count 18.6 X10*3/uL (4.8-10.8)
[2022-07-27 11:35] LABS: Glucose, Whole Blood 221 mg/dL (60-115)
[2022-07-27] MEDS: 0.9 % Sodium Chloride 1,000 ML 100 ML IVCONT (14:45)
[2022-07-27 15:00] LABS: Glucose, Whole Blood 208 mg/dL (60-115)
[2022-07-27 16:40] LABS: Glucose, Whole Blood 194 mg/dL (60-115)
[2022-07-27 20:48] LABS: Glucose, Whole Blood 209 mg/dL (60-115)
[2022-07-27] MEDS: Melatonin 3 MG TABLET PO (20:54)
[2022-07-28 03:26] VITALS: BP 156/84; PULSE 56; RESP 19; TEMP 36.4; O2SAT 94
[2022-07-28] MEDS: Omeprazole 40 MG CAPSULE.DR PO (03:57)
[2022-07-28] MEDS: oxyCODONE HCl Immed Release 5 MG TABLET 10 MG PO (03:57)
[2022-07-28 07:13] VITALS: BP 124/66; PULSE 85; RESP 20; TEMP 36.6; O2SAT 93
[2022-07-28 07:24] LABS: Glucose, Whole Blood 194 mg/dL (60-115)
[2022-07-28] MEDS: Sertraline HCL 100 MG TABLET PO (09:03)
[2022-07-28] MEDS: Multivitamin TABLET 1 TAB PO (09:03)
[2022-07-28] MEDS: Gabapentin 100 MG CAPSULE 200 MG PO (09:03)
[2022-07-28] MEDS: allopurinoL 100 MG TABLET PO (09:04)
[2022-07-28] MEDS: cefTRIAXone sodium 1 GM in 0.9 % Sodium Chloride 50 ML IV (09:04)
[2022-07-28] MEDS: hydrOXYzine HCL 25 MG TABLET PO (09:04)
[2022-07-28] MEDS: Atorvastatin Calcium 80 MG TABLET PO (09:04)
[2022-07-28] MEDS: Insulin Lispro 100 UNIT/ML 3 ML VIAL SUBCUT ×2 (09:06→11:11)
[2022-07-28] MEDS: 0.9 % Sodium Chloride 1,000 ML 100 ML IVCONT (09:10)
[2022-07-28 09:12] LABS: Hematocrit 31.5 % (37.0-47.0); Hemoglobin 9.7 g/dl (12.0-16.0); Mean Corpuscular HGB Conc 30.8 g/dl (31.0-35.0); Mean Corpuscular Hemoglobin 26.2 pg (27.0-33.0); Mean Corpuscular Volume 85.1 fL (80.0-98.0); Mean Platelet Volume 10.1 fL (9.4-12.3); Platelet Count 613 X10*3/uL (160-400); Red Cell Distribution Width 15.3 % (11.0-16.0); White Blood Count 18.6 X10*3/uL (4.8-10.8)
[2022-07-28 10:56] VITALS: BP 141/85; PULSE 83; RESP 20; TEMP 36.6; O2SAT 94
[2022-07-28 11:03] LABS: Glucose, Whole Blood 203 mg/dL (60-115)
--- NOTE | 2022-07-28 11:19 | MHC.CM.PN ---
Patient has been medically cleared for dc to home today, self care.
== END 2022-07-28 15:39 | disposition home or self-care (01) | DRG 920 ==
LOC: HO.ED 08:38 → HO.EDOVER 11:26 → HO.IMC 07-27 13:47
PROVIDERS: Physician Assistant Medical; Admitting Provider Family Medicine; Emergency Provider Emergency Medicine; PCP Internal Medicine; Visit Provider Internal Medicine
DX: N99.841 Postprocedural hematoma of a genitourinary system organ or structure following other procedure (principal); D62 Acute posthemorrhagic anemia; N39.0 Urinary tract infection, site not specified; N17.9 Acute kidney failure, unspecified; I25.10 Atherosclerotic heart disease of native coronary artery without angina pectoris; N18.30 Chronic kidney disease, stage 3 unspecified; I12.9 Hypertensive chronic kidney disease with stage 1 through stage 4 chronic kidney disease, or unspecified chronic kidney disease; E87.5 Hyperkalemia; D72.829 Elevated white blood cell count, unspecified; K21.9 Gastro-esophageal reflux disease without esophagitis; Z20.822 Contact with and (suspected) exposure to COVID-19; E11.22 Type 2 diabetes mellitus with diabetic chronic kidney disease; Z87.442 Personal history of urinary calculi; I25.2 Old myocardial infarction; F17.210 Nicotine dependence, cigarettes, uncomplicated; Z87.440 Personal history of urinary (tract) infections; Z71.6 Tobacco abuse counseling; Z79.4 Long term (current) use of insulin; Z79.82 Long term (current) use of aspirin; Z79.84 Long term (current) use of oral hypoglycemic drugs; Z79.899 Other long term (current) drug therapy
CPT/HCPCS: 36415; 71045; 74176; 80048; 80053; 81001; 82248; 82947; 83605; 83690; 84484; 85014; 85018; 85027; 85610; 86850; 86900; 86901; 87040; 87086; 87205; 87635; 93005; 94640; 96361; 96374; 96375; 99285; J0696; J2405; J3010

== ENCOUNTER 2022-09-08 05:46 | Inpatient (IN) | payer OTHER, SELFPAY ==
[2022-09-08] VITALS (9 sets, daily range): BP systolic 104–132; BP diastolic 47–102; PULSE 65–92; RESP 17–25; TEMP 36.2–36.8; O2SAT 94–98; BMI 37.5
--- NOTE | ~2022-09-08 | XR_ITS ---
EXAMINATION: XR CHEST CLINICAL INFORMATION: Hypoxia. COMPARISON: 07/23/2022 chest radiograph. TECHNIQUE: Frontal view of the chest was obtained. FINDINGS: There is mild elevation of the right hemidiaphragm. Mild linear markings are seen at the left lung base. The upper lung thorne are clear. The heart and mediastinal structures are unremarkable. XR/XR chest 1V IMPRESSION: Mild left basilar linear atelectasis/scarring. No acute cardiopulmonary process .
--- NOTE | ~2022-09-08 | CT_ITS ---
EXAMINATION: CT ABDOMEN AND PELVIS WITHOUT CONTRAST CLINICAL INFORMATION: Flank pain. History of stones. COMPARISON: 07/23/2022 TECHNIQUE: Multidetector volumetric imaging was performed from the superior aspect of the liver through the pubic symphysis. Sagittal and coronal reformatted images were obtained on the technologist's workstation. This CT examination was performed using dose optimization techniques as appropriate, variously including the following: *Automated exposure control *Adjustment of mA and/or kV according to patient size (this includes techniques or standardized protocols for targeted exams where dose is matched to indication/reason for exam; i.e. extremities or head) *Use of iterative reconstruction technique DLP: 789 mGy-cm FINDINGS: LUNG BASES: The right diaphragm is chronically elevated and there is passive atelectasis of the right lung base. Atherosclerotic calcification of coronary arteries is present. No pericardial or pleural effusion. An old calcified granuloma is present in the posteromedial left lower lobe. LIVER: Liver parenchyma has normal attenuation. Compared to 07/23/2022, there is new loculated, septated fluid collection along the posterior capsular surface of the right hepatic lobe. This collection measures up to approximately 19 cm in maximum dimension. There is no gas within this fluid collection which has attenuation of approximately 10 Hounsfield units. Also, there is a new small simple-appearing fluid collection projecting posterior to the left hepatic lobe, lateral to the caudate. GALLBLADDER AND BILIARY TREE: Gallbladder has calcified stones and is otherwise unremarkable. No dilated bile ducts. PANCREAS: No acute findings within the atrophied pancreas. SPLEEN: Splenomegaly is present. The spleen measures 17.6 cm in craniocaudal dimension (16.3 cm on prior exam). ADRENAL GLANDS: Bilateral adrenal nodules are stable compared to 03/26/2020, consistent with benign nodules, very likely adenomas. The right adrenal is not optimally evaluated on the current examination due to the edema and fluid around the right kidney. The left adrenal nodule has attenuation of 10 HU, suggestive of lipid rich adenoma. No adrenal imaging follow-up recommended. KIDNEYS AND URETERS: The right kidney contains a few small calcified stones of less than 0.5 cm size, unchanged compared to 07/23/2022. No hydronephrosis. The right kidney is anteriorly displaced by the persistent subcapsular/perinephric fluid which compresses and appears to involve the underlying right psoas muscle. The fluid collection located posterior to the kidney currently measures approximately 12.7 x 10.2 cm on the axial images, compared to 10.5 x 9.5 cm on prior exam. As mentioned above, there is a new nearby fluid collection along the anterior renal fascia that compresses the right hepatic lobe. No evidence of gas within these collections which have attenuation of water. No acute hemorrhage. Left kidney is unremarkable. BLADDER: Normal. No calculi or wall thickening. BOWEL AND PERITONEUM: No dilated bowel loops. No acute findings along the gastrointestinal tract. There are a few diverticula of the sigmoid colon without diverticulitis. ABDOMINAL WALL: Edema of subcutaneous tissues of the abdominal wall. No focal, organized fluid collection within the abdominal wall. VASCULATURE: Atherosclerosis of the abdominal aorta and branch vessels. No aortic aneurysm. The calcified atherosclerotic plaque appears to cause moderate to high-grade stenosis of the proximal SMA. LYMPH NODES: There are borderline enlarged lymph nodes in the retroperitoneum, likely reactive lymph nodes. No iliac or inguinal lymphadenopathy. PELVIC VISCERA: Calcified intramural leiomyoma of the uterus. No adnexal mass. SKELETAL: No acute osseous abnormality. Multilevel degenerative arthropathy of the visualized spine. CT/CT abdomen pelvis wo IV con IMPRESSION: * The perinephric/subcapsular fluid collection of the right kidney has increased in size compared to 07/23/2022 and exerts mass effect upon the kidney which remains anteriorly displaced. The small calculi within the right kidney are unchanged in size. No hydronephrosis. * New fluid collections are observed posterior to the left hepatic lobe and posterior to the right hepatic lobe with the large lobulated, septated collection along the capsular surface of the posterior right lobe exerting mass effect upon the underlying liver. These fluid collections have attenuation in the range of water. No acute hemorrhage. * Cholelithiasis without evidence of acute cholecystitis. * Persistent splenomegaly.
--- NOTE | ~2022-09-08 | CT_ITS ---
PROCEDURE: CT GUIDED DRAINAGE, LIVER ABSCESS AND RIGHT RENAL ABSCESS CLINICAL INFORMATION: Right renal and liver collections. COMPARISON: Previous CT of the abdomen and pelvis most recent from earlier the same day TECHNIQUE: Procedure and risks and benefits including bleeding, infection, injury to the kidney and liver were discussed with the patient and informed consent was obtained. The patient was positioned in the left decubitus position. Limited axial images through the abdomen were performed. The right flank was prepped and draped in the usual sterile fashion. The skin and soft tissues were anesthetized with 1% lidocaine plain. Using CT guidance and a 5 [place] one-stick system, access to the right perinephric collection was obtained. Over an 035 guidewire following serial dilatation, a 10.2 [place] drainage catheter was positioned. 600 mL of brown purulent fluid was removed. Diagnostic specimen was sent for Gram stain and culture. Subsequently, the right lateral upper abdomen was prepped and draped in the usual sterile fashion. The skin and soft tissues were anesthetized with 1% lidocaine plain. Using CT guidance and a 5 [place] 1 6 system, access to the largest collection in the liver was obtained. Over an 035 wire and following serial dilatation, a 10.2 [place] drainage catheter was positioned. 800 mL of brown purulent appearing fluid was removed. Diagnostic specimen was sent for Gram stain and culture. Patient received Versed 1 mg and fentanyl 50 mcg intravenously during the procedure. Total sedation time was 70 minutes. Conscious sedation was provided by registered nurse under my direct supervision with continuous hemodynamic monitoring. This CT examination was performed using dose optimization techniques as appropriate, variously including the following: *Automated exposure control *Adjustment of mA and/or kV according to patient size (this includes techniques or standardized protocols for targeted exams where dose is matched to indication/reason for exam; i.e. extremities or head) *Use of iterative reconstruction technique DLP: 466 mGy-cm FINDINGS: There is a large multiloculated right perinephric collection. There are multiple fluid collections in the right lobe of the liver. The largest collection was targeted for aspiration and drainage. Images demonstrate satisfactory position of drainage catheters and interval decrease in size in liver and right renal collections. CT/CT guided aspiration liver IMPRESSION: CT-guided right renal and liver abscess drainages.
--- NOTE | 2022-09-08 06:31 | PC.NURSE ---
PT given epri care. Unable to collect urine as Pt is incontinent. Carson snell made aware. Pt given warm blankets and call espinal placed in reach
[2022-09-08] MEDS: Morphine Sulfate 4 MG/ML CARTRIDGE IVPUSH (06:46)
[2022-09-08] MEDS: 0.9 % Sodium Chloride 1,000 ML 999 ML IV (06:46)
[2022-09-08] MEDS: ondansetron HCL 4 MG/2 ML VIAL IVPUSH (06:46)
[2022-09-08 06:50] LABS: Basophils Percent Auto 0.2 % (0-2); Eosinophils Absolute Auto 0.1 X10*3/uL (0.0-0.4); Eosinophils Percent Auto 0.4 % (0-4); Hematocrit 28.4 % (37.0-47.0); Hemoglobin 8.6 g/dl (12.0-16.0); Imm Gran Abs Auto 0.18 X10*3/uL (0.00-0.03); Imm Gran Pct Auto 1.1 % (0.0-0.4); Lymphocytes Absolute Auto 1.2 X10*3/uL (1.2-4.9); Lymphocytes Percent Auto 7.5 % (20-40); MANUAL DIFF FLAG NO; Mean Corpuscular HGB Conc 30.3 g/dl (31.0-35.0); Mean Corpuscular Hemoglobin 24.2 pg (27.0-33.0); Mean Platelet Volume 9.9 fL (9.4-12.3); Monocytes Absolute Auto 0.7 X10*3/uL (0.1-1.2); Monocytes Percent Auto 4.3 % (2-11); Neutrophils Absolute Auto 14.3 x10*3/uL (2.0-8.3); Neutrophils Percent Auto 86.5 % (45-73); Platelet Count 512 X10*3/uL (160-400); Red Blood Count 3.55 X10*6/uL (4.20-5.50); Red Cell Distribution Width 18.5 % (11.0-16.0); White Blood Count 16.5 X10*3/uL (4.8-10.8)
--- NOTE | 2022-09-08 06:52 | ED.GENADULT ---
HPI - General Adult General Chief complaint: General Medical Stated complaint: RT FLANK PAIN HX KIDNEY STONES Time Seen by Provider: 09/08/22 06:45 History of Present Illness HPI narrative: Patient is a 52-year-old female with a history of kidney stone history of diabetes, hypertension, status post lithotripsy back in June. History of urinary tract infections. Presented today with having right-sided flank pain. The flank pain has been persistent since patient was in the hospital in July. At the time patient had a urinary tract infection CT scan of the time showed a hematoma versus seroma status post lithotripsy. Patient claims the pain has been persistent. No fever no chills. No cough no congestion or upper respiratory symptoms. Normal bowel movement. Able to tolerate food. Patient from home. Related Data Home Medications Medication Instructions Recorded Confirmed aspirin 81 mg tablet,delayed 81 mg PO DAILY 09/18/20 07/31/22 release melatonin 3 mg tablet 3 mg PO BEDTIME 03/17/21 07/31/22 multivitamin with minerals-ferrous 1 tab PO DAILY 03/17/21 07/31/22 sulfate 4.5 mg iron tablet (One Daily Multivitamins with Minerals) hydroxyzine pamoate 25 mg capsule 25 mg PO BID@0900,1700 05/01/22 07/31/22 pen needle, diabetic 32 gauge x #50 ea 06/16/22 07/31/22 (BD Ultra-Fine Gi Pen Needle) ergocalciferol (vitamin D2) 1,250 1,250 mcg PO SA 07/23/22 07/31/22 mcg (50,000 unit) capsule (Vitamin D2) insulin aspart U-100 100 unit/mL 22 unit subcut DAILY 07/23/22 07/31/22 (3 mL) subcutaneous pen (Novolog Flexpen U-100 Insulin aspart) metformin 500 mg tablet 500 mg PO DAILY@1200 07/23/22 07/31/22 Previous Rx's Medication Instructions Recorded sertraline 100 mg tablet 100 mg PO DAILY #30 caps 12/13/20 albuterol sulfate 90 mcg/actuation 1 puff PO QID PRN for dyspnea #6.7 04/30/22 aerosol inhaler grams lancets 28 gauge (FreeStyle #100 ea 05/15/22 Lancets) allopurinol 100 mg tablet 100 mg PO DAILY 90 days #90 tabs 06/26/22 pyridoxine (vitamin B6) 100 mg 100 mg PO DAILY 90 days #90 tabs 06/26/22 tablet cefuroxime axetil 250 mg tablet 250 mg PO BID 8 days #16 tabs 07/28/22 tramadol 50 mg tablet 50 mg PO Q8H PRN pain #20 tabs 07/31/22 amlodipine 5 mg tablet (Norvasc) 5 mg PO BEDTIME #30 tabs 08/06/22 atorvastatin 80 mg tablet 80 mg PO DAILY #30 tabs 08/06/22 carvedilol 12.5 mg tablet 12.5 mg PO BID #60 tabs 08/06/22 blood sugar diagnostic (FreeStyle #100 ea 08/10/22 Lite Strips) omeprazole 40 mg capsule,delayed 40 mg PO DAILY #30 caps 08/11/22 release blood-glucose meter (Freestyle #1 ea 08/13/22 [employer] meter) blood sugar diagnostic (FreeStyle #100 ea 08/19/22 Lite Strips) blood-glucose meter (FreeStyle #1 ea 08/19/22 Lite Meter kit) gabapentin 100 mg capsule 200 mg PO TID #180 caps 09/07/22 Allergies Allergy/AdvReac Type Severity Reaction Status Date / Time No Known Allergies Allergy Verified 07/31/22 13:00 Review of Systems Review of Systems: No fever no chills no cough no congestion or respiratory symptoms. Yes all other systems are reviewed and are negative [facility] Past Medical History Attestation statement: The following information was validated with the patient. 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 Vitamin D deficiency Surgical History History of arthroscopy of left knee (~12/2011) History of breast lump/mass excision (~03/2017) History of heart artery stent (~09/2015) History of surgery History of surgery Hx of cystoscopy Family History Family History Father Alzheimer's dementia Social History Social History Household Members: Other Household Members Other:: Roommate Housing: House Do you presently have visiting nurse or other home services: Yes Alcohol intake: former Patient Tobacco Use Status: Current everyday Tobacco user Tobacco use type: Cigarette Cigarettes Per Day: 18 Years Smoked: 30 +/- e-Cigarette/Vaping Use: Former Use Second Hand Smoke Exposure: Yes Substance Use Type: Marijuana Advance Directives: Yes Advance Directives on File: Yes Advance Directives Date on File: 07/23/22 service: No Current occupational status: disabled Cognitive needs: No Hearing needs: No Vision needs: Yes Physical Exam ED Vital Signs: Vital Signs - 24 hr 09/08/22 05:59 09/08/22 06:29 09/08/22 09:08 Temperature 98.2 F 97.9 F 98.1 F Pulse Rate 65 73 77 Respiratory Rate 24 H 25 H 17 Blood Pressure 113/59 L 127/47 L 104/51 L Pulse Oximetry 94 97 95 Oxygen Delivery Method Room Air Room Air Nasal Cannula Oxygen Flow Rate 1 BMI result Body Mass Index 37.5 Appearance: Alert. Oriented X3. No acute distress. Eyes: Pupils equal, round and reactive to light. ENT: Pharynx normal. Neck: Normal inspection. Neck supple. No lymph nodes noted. No crepitus CVS: Normal heart rate and rhythm. Pulses normal. Normal S1 and S2 Respiratory: No respiratory distress. Breath sounds normal. No Wheezing. No rales Abdomen: Soft and nontender. No rigidity. No distention. good BS x4 Skin: Skin warm and dry. Normal skin color. Normal skin turgor. Extremities: No lower extremity edema. Neurovascular intact to all extremities. No Lacerations. No Rash Neuro: Oriented X 3. No motor deficit. No sensory deficit. Moving all extermities. No slurred speech Medications Administered Discontinued Medications Generic Name Dose Route Start Last Admin Trade Name Freq PRN Reason Stop Dose Admin Sodium Chloride 1,000 mls @ 999 mls/hr 09/08/22 06:12 09/08/22 06:46 Ns IV 09/08/22 07:12 999 mls/hr .Q1H1M ONE Administration Morphine Sulfate 4 mg 09/08/22 06:12 09/08/22 06:46 Morphine Sulfate 4 Mg/Ml Cartridge IVPUSH 09/08/22 06:13 4 mg ONCE ONE Administration Protocol Ondansetron HCl 4 mg 09/08/22 06:12 09/08/22 06:46 Ondansetron Hcl 4 Mg/2 Ml Vial IVPUSH 09/08/22 06:13 4 mg ONCE ONE Administration Medical Decision Making MDM Narrative Medical decision making narrative: Patient has right-sided flank pain. History of having lithotripsy done in June. History of having a fluid collection developing over the kidney. Patient was admitted in July for a urinary tract infection. At the time case was discussed with Dr. Farr from Urology. Conservative management was recommended. Patient was discharged home. Continued to have right-sided flank pain. Patient claims over the last week it has gotten worse. Presented back to the emergency department. CT scan of the abdomen pelvis now show in addition to the fluid collection around the kidney. There is also a fluid collection around the liver. Question etiology. Finding was discussed with Dr. Farr again from Urology conservative management. Patient's urine does not appear to be infected. Patient's LFTs are elevated. Namely the alk phos has doubled. The bilirubin is still normal. The finding was also discussed with Dr. Batista from GI. Recommended for patient to get a tap of the fluid by IR. Will consult on the case. Patient's case was discussed with the hospitalist team. Discussed with patient. Will admit for further evaluation. Lab Data Lab results reviewed: Yes I reviewed the patient's lab results. Result diagrams: 09/08/22 06:45 09/08/22 06:45 Labs: Lab Results 09/08/22 09/08/22 09/08/22 Range/Units 06:45 06:45 06:45 WBC 16.5 H (4.8-10.8) X10*3/uL RBC 3.55 L (4.20-5.50) X10*6/uL Hgb 8.6 L (12.0-16.0) g/dl Hct 28.4 L (37.0-47.0) % MCV 80.0 (80.0-98.0) fL MCH 24.2 L (27.0-33.0) pg MCHC 30.3 L (31.0-35.0) g/dl RDW 18.5 H (11.0-16.0) % Plt Count 512 H (160-400) X10*3/uL MPV 9.9 (9.4-12.3) fL Immature Gran % (Auto) 1.1 H (0.0-0.4) % Neut % (Auto) 86.5 H (45-73) % Lymph % (Auto) 7.5 L (20-40) % Barber % (Auto) 4.3 (2-11) % Eos % (Auto) 0.4 (0-4) % Baso % (Auto) 0.2 (0-2) % Lymph # (Auto) 1.2 (1.2-4.9) X10*3/uL Barber # (Auto) 0.7 (0.1-1.2) X10*3/uL Eos # (Auto) 0.1 (0.0-0.4) X10*3/uL Baso # (Auto) 0.0 (0.0-0.2) X10*3/uL Abs Immat Gran (auto) 0.18 H (0.00-0.03) X10*3/uL Absolute Neuts (auto) 14.3 H (2.0-8.3) x10*3/uL Absolute Nucleated RBC 0.000 (0.0-0.012) X10*3/uL Nucleated RBC % (auto) 0.0 (0.0-0.2) /100WBC Sodium 138 (135-145) mmol/L Potassium 3.5 D (3.3-5.1) mmol/L Chloride 108 (96-108) mmol/L Carbon Dioxide 16 L (22-29) mmol/L Anion Gap 18 (12-20) BUN 18 H (9-16) mg/dL Creatinine 0.99 (0.5-1.4) mg/dL Estim Creat Clear Calc 71.7 Estimated GFR 58 Random Glucose 153 H (60-115) mg/dL Lactic Acid 1.3 (0.5-2.0) mmol/L Calcium 8.5 (8.4-10.2) mg/dL Total Bilirubin 0.4 (0.0-1.0) mg/dL AST 37 H (5-31) U/L ALT 33 H (0-31) U/L Alkaline Phosphatase 716 H D (39-117) U/L Total Protein 6.4 L (6.5-8.0) g/dL Albumin 2.7 L (3.5-5.0) g/dL Urine Color Urine Appearance Urine pH (5.0-9.0) Ur Specific [place] (1.005-1.025) Urine Protein (Neg-Trace) mg/dL Urine Glucose (UA) (Negative) mg/dL Urine Ketones (Negative) mg/dL Urine Blood (Negative) Urine Nitrite (Negative) Ur Leukocyte Esterase (Negative) Urine RBC (0-2) /HPF Urine WBC (0-5) /HPF Ur Squamous Epith Cells (0-2) /HPF Urine Bacteria (None Seen) Hyaline Casts (0-2) /LPF COVID-19 (JORDON) (Negative) COVID-19 Clin Com 09/08/22 09/08/22 Range/Units 08:49 08:49 WBC (4.8-10.8) X10*3/uL RBC (4.20-5.50) X10*6/uL Hgb (12.0-16.0) g/dl Hct (37.0-47.0) % MCV (80.0-98.0) fL MCH (27.0-33.0) pg MCHC (31.0-35.0) g/dl RDW (11.0-16.0) % Plt Count (160-400) X10*3/uL MPV (9.4-12.3) fL Immature Gran % (Auto) (0.0-0.4) % Neut % (Auto) (45-73) % Lymph % (Auto) (20-40) % Barber % (Auto) (2-11) % Eos % (Auto) (0-4) % Baso % (Auto) (0-2) % Lymph # (Auto) (1.2-4.9) X10*3/uL Barber # (Auto) (0.1-1.2) X10*3/uL Eos # (Auto) (0.0-0.4) X10*3/uL Baso # (Auto) (0.0-0.2) X10*3/uL Abs Immat Gran (auto) (0.00-0.03) X10*3/uL Absolute Neuts (auto) (2.0-8.3) x10*3/uL Absolute Nucleated RBC (0.0-0.012) X10*3/uL Nucleated RBC % (auto) (0.0-0.2) /100WBC Sodium (135-145) mmol/L Potassium (3.3-5.1) mmol/L Chloride (96-108) mmol/L Carbon Dioxide (22-29) mmol/L Anion Gap (12-20) BUN (9-16) mg/dL Creatinine (0.5-1.4) mg/dL Estim Creat Clear Calc Estimated GFR Random Glucose (60-115) mg/dL Lactic Acid (0.5-2.0) mmol/L Calcium (8.4-10.2) mg/dL Total Bilirubin (0.0-1.0) mg/dL AST (5-31) U/L ALT (0-31) U/L Alkaline Phosphatase (39-117) U/L Total Protein (6.5-8.0) g/dL Albumin (3.5-5.0) g/dL Urine Color Yellow Urine Appearance Clear Urine pH 5.5 (5.0-9.0) Ur Specific [place] 1.025 (1.005-1.025) Urine Protein 100 (2+) H (Neg-Trace) mg/dL Urine Glucose (UA) Negative (Negative) mg/dL Urine Ketones Negative (Negative) mg/dL Urine Blood Negative (Negative) Urine Nitrite Negative (Negative) Ur Leukocyte Esterase Small (1+) H (Negative) Urine RBC 0-2 (0-2) /HPF Urine WBC 21-50 H (0-5) /HPF Ur Squamous Epith Cells >20 (0-2) /HPF Urine Bacteria None Seen (None Seen) Hyaline Casts 11-20 (0-2) /LPF COVID-19 (JORDON) Negative (Negative) COVID-19 Clin Com See Note Discharge Plan Discharge Clinical Impression: Acute flank pain Patient Disposition: Admitted As Inpatient Prescriptions: No Action sertraline 100 mg tablet 100 mg PO DAILY Qty: 30 3RF albuterol sulfate 90 mcg/actuation HFA aerosol inhaler 1 puff PO QID PRN (Reason: for dyspnea) Qty: 6.7 1RF (DME) lancets [FreeStyle Lancets] 28 gauge misc See Rx Instructions .Route Qty: 100 1RF Rx Instructions: Test 3 times daily atorvastatin 80 mg tablet 80 mg PO DAILY Qty: 30 3RF amlodipine [Norvasc] 5 mg tablet 5 mg PO BEDTIME Qty: 30 8RF carvedilol 12.5 mg tablet 12.5 mg PO BID Qty: 60 3RF (DME) FreeStyle Lite Strips Strip See Rx Instructions .Route Qty: 100 0RF Rx Instructions: Use 1 test strip three times a day omeprazole 40 mg capsule,delayed release(DR/EC) 40 mg PO DAILY Qty: 30 3RF (DME) blood-glucose meter [Freestyle [employer]] Misc See Rx Instructions .Route Qty: 1 0RF Rx Instructions: As directed (DME) blood-glucose meter [FreeStyle Lite Meter] Kit See Rx Instructions .ROUTE .MEDSUPPLY Qty: 1 0RF Rx Instructions: As directed (DME) FreeStyle Lite Strips Strip See Rx Instructions .ROUTE .MEDSUPPLY Qty: 100 12RF Rx Instructions: As directed once a day gabapentin 100 mg capsule 200 mg PO TID Qty: 180 3RF ergocalciferol (vitamin D2) [Vitamin D2] 1,250 mcg (50,000 unit) capsule 1,250 mcg PO SA Label Comments: on saturdays metformin 500 mg tablet 500 mg PO DAILY@1200 insulin aspart U-100 [Novolog Flexpen U-100 Insulin] 100 unit/mL (3 mL) insulin pen 22 unit subcut DAILY cefuroxime axetil 250 mg tablet 250 mg PO BID 8 Days Qty: 16 0RF aspirin 81 mg tablet,delayed release (DR/EC) 81 mg PO DAILY melatonin 3 mg tablet 3 mg PO BEDTIME Label Comments: OTC per pt One Daily Multi-Vit w-Mineral 4.5 mg iron tablet 1 tab PO DAILY Label Comments: OTC per pt tramadol 50 mg tablet 50 mg PO Q8H PRN (Reason: pain) Qty: 20 0RF hydroxyzine pamoate 25 mg capsule 25 mg PO BID@0900,1700 (DME) pen needle, diabetic [BD Ultra-Fine Gi Pen Needle] 32 gauge x 5/32 needle See Rx Instructions subcut DAILY Qty: 50 Rx Instructions: As directed allopurinol 100 mg tablet 100 mg PO DAILY 90 Days Qty: 90 1RF pyridoxine (vitamin B6) 100 mg tablet 100 mg PO DAILY 90 Days Qty: 90 1RF
[2022-09-08 07:07] LABS: Lactic Acid 1.3 mmol/L (0.5-2.0)
--- NOTE | 2022-09-08 07:10 | PC.NURSE ---
Pt reported during triage that pt fell while with EMS. safety scientist called and spoke with Aiden Nicholson [facility]. Per pt request EMS allowed pt to ambulated down stairs. Pt slipped with three stairs left. EMS guided pt down.
[2022-09-08 07:17] LABS: Alanine Aminotransferase 33 U/L (0-31); Albumin Level 2.7 g/dL (3.5-5.0); Alkaline Phosphatase 716 U/L (39-117); Anion Gap 18 (12-20); Aspartate Amino Transferase 37 U/L (5-31); Bilirubin Total 0.4 mg/dL (0.0-1.0); Blood Urea Nitrogen 18 mg/dL (9-16); Calcium 8.5 mg/dL (8.4-10.2); Carbon Dioxide 16 mmol/L (22-29); Chloride 108 mmol/L (96-108); Creatinine Clr Calc Pharmacy 71.7; Estimated Glomerular Filt Rate 58; Glucose Random 153 mg/dL (60-115); Potassium 3.5 mmol/L (3.3-5.1); Sodium 138 mmol/L (135-145); Total Protein 6.4 g/dL (6.5-8.0)
--- NOTE | 2022-09-08 07:39 | PC.NURSE ---
pt with O2 dropping into the 80's, no c/o noted at this time. MD aware pt placed on 2lNC and is now 93%, HOB elevated but she wants to stay on her side
[2022-09-08 09:06] LABS: Appearance Urine Clear; Color Urine Yellow; Glucose Urine UA Negative (Negative); Leukocyte Esterase Urine Small (1+) (Negative); Nitrite Urine Negative (Negative); PH 5.5 (5.0-9.0); Specific Gravity - Urine 1.025 (1.005-1.025); UMIC TRIGGER UACC YES; Urine Blood Negative (Negative); Urine Ketones Negative (Negative); Urine Protein 100 (2+) mg/dL (Neg-Trace)
[2022-09-08 09:27] LABS: Bacteria Urine None Seen (None Seen); COVID-19 Test Negative (Negative); RBC Urine 0-2 /HPF (0-2); Squamous Epithelial Cell Urine >20 /HPF (0-2); UACC Culture Trigger YES; WBC Urine 21-50 /HPF (0-5)
--- NOTE | 2022-09-08 10:34 | PHA.MEDREC ---
Pharmacy Consult ? Medication Reconciliation Pharmacy has completed the medication reconciliation. Patient was somewhat unsure of medications but when told what they were and the doses she was able to tell me if she was taking them or not. Completed list based on most recent claim history and patient confirmation of medications.
[2022-09-08 11:02] LABS: Influenza A PCR NEGATIVE (Negative); Influenza B PCR NEGATIVE (Negative); Resp Syncy Virus RNA Qual PCR NEGATIVE (Negative); SARS COV2 PCR INHOUSE NEGATIVE (Negative)
--- NOTE | 2022-09-08 12:07 | PC.NURSE ---
pt dropped her O2 down to 88% on RA, put her back on 2LNC, charge is aware
--- NOTE | 2022-09-08 13:04 | PM.IMHP ---
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 She reports associated poor oral intake and chills. She denies any fevers. Has also has diarrhea with fecal incontinence now wearing brief x 2 months primarily in the am. Denies any dysuria, frequency, urgency, urinary incontinence, or hematuria. 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 White blood cell count 16.5, decreased from prior admission (last WBC 18.6 on 07/28/2022). She is not oxygen dependent but has had intermittent hypoxia in the ED down to 83% now on 2 L supplemental O2 with slight to tachypnea 24. Vital signs otherwise stable. AST 37, ALT 33, alkaline phosphatase has doubled to 716. Glucose 153. Renal function stable. Urinalysis unremarkable. CT of the abdomen/pelvis showed right perinephric/subcapsular fluid collection increased in size from 07/23 study with mass effect on the kidney remaining anterior displaced with small calculi within the right kidney unchanged in size and without hydronephrosis. There also new fluid collections observed the posterior to left hepatic lobe and posterior to right hepatic lobe with large lobulated, septated collection along the capsular surface of the posterior right lobe exerting mass effect upon the underlying liver. The fluid collections have attenuation in the range of water without acute hemorrhage. There is also cholelithiasis without evidence of acute cholecystitis and persistent splenomegaly. She is reporting 9/10 pain and has received morphine, ondansetron, and 1 L normal saline. Review of Systems Review of Systems: General: No fevers, malaise, unintentional weight loss HEENT: No blurred vision, diplopia. No sore throat, nasal congestion, rhinorrhea, sinus pain, ear pain Cardiovascular: No chest pain, palpitations, or leg edema Respiratory: +sob. No wheezing, cough GI: +rlq pain. +anorexia. +nausea. +diarrhea, +fecal incontinence. No vomiting, constipation, melena, hematochezia : +right flank pain. 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 Vitamin D deficiency Family History Father Alzheimer's dementia Surgical History History of arthroscopy of left knee (~12/2011) History of breast lump/mass excision (~03/2017) History of heart artery stent (~09/2015) History of surgery History of surgery Hx of cystoscopy Social History Household Members: Other Household Members Other:: Roommate Housing: House Do you presently have visiting nurse or other home services: Yes Alcohol intake: former Patient Tobacco Use Status: Current everyday Tobacco user Tobacco use type: Cigarette Cigarettes Per Day: 18 Years Smoked: 30 +/- e-Cigarette/Vaping Use: Former Use Second Hand Smoke Exposure: Yes Substance Use Type: Marijuana Advance Directives: Yes Advance Directives on File: Yes Advance Directives Date on File: 07/23/22 service: No Current occupational status: disabled Cognitive needs: No Hearing needs: No Vision needs: Yes Meds Allergies Allergy/AdvReac Type Severity Reaction Status Date / Time No Known Allergies Allergy Verified 07/31/22 13:00 Active Medications: Current Medications Pharmacy Consult (Consult Rx Perform Med Rec) 1 each MISCELLANE ONCE PRN PRN Reason: Consult order Home Medications Medication Instructions Recorded Confirmed Last Taken Type aspirin 81 mg tablet,delayed 81 mg PO DAILY 09/18/20 09/08/22 09/07/22 History release melatonin 3 mg tablet 3 mg PO BEDTIME 03/17/21 09/08/22 09/07/22 History multivitamin with minerals-ferrous 1 tab PO DAILY 03/17/21 09/08/22 09/07/22 History sulfate 4.5 mg iron tablet (One Daily Multivitamins with Minerals) hydroxyzine pamoate 25 mg capsule 25 mg PO BID@0900,1700 05/01/22 09/08/22 09/07/22 History pen needle, diabetic 32 gauge x #50 ea 06/16/22 07/31/22 Unknown History (BD Ultra-Fine Gi Pen Needle) ergocalciferol (vitamin D2) 1,250 1,250 mcg PO SA 07/23/22 09/08/22 09/07/22 History mcg (50,000 unit) capsule (Vitamin D2) insulin aspart U-100 100 unit/mL 22 unit subcut DAILY 07/23/22 09/08/22 09/07/22 History (3 mL) subcutaneous pen (Novolog Flexpen U-100 Insulin aspart) metformin 500 mg tablet 500 mg PO DAILY@1200 07/23/22 09/08/22 09/07/22 History Physical Exam Vital Signs and Narrative: Vital Signs: Last Vital Signs Temp 98.0 F 09/08/22 13:00 Pulse 82 09/08/22 13:00 Resp 17 09/08/22 13:00 BP 109/66 09/08/22 13:00 Pulse Ox 95 09/08/22 13:00 O2 Del Method 09/08/22 13:00 O2 Flow Rate 2 09/08/22 13:00 BMI result Body Mass Index 37.5 Constitutional - Awake and Alert, No apparent distress Eyes - PERRLA, EOMI Cardiovascular - S1S2, RRR, No edema Respiratory - Normal lung expansion, Normal respiratory effort, No respiratory distress, CTA bilaterally Gastrointestinal - RUQ/RLQ ttp with mild upper abdominal distension. +BS; No rebound or guarding - right sided cva tenderness Extremities - no calf tenderness bilaterally, no swelling Musculoskeletal - Normal inspection, normal ROM Skin - Warm/Dry. Cutaneous candidiasis right groin Neurological - Alert & oriented x3, CN II-XII in tact, 5/5 strength BUE and BLE Psychological - Appropriate affect Results Labs CBC and Chem 7: 09/08/22 06:45 09/08/22 06:45 Labs: Laboratory Results - last 24 hr 09/08/22 09/08/22 09/08/22 06:45 06:45 06:45 MCV 80.0 MCH 24.2 L MCHC 30.3 L RDW 18.5 H Plt Count 512 H MPV 9.9 Immature Gran % (Auto) 1.1 H Neut % (Auto) 86.5 H Lymph % (Auto) 7.5 L [place] % (Auto) 4.3 Eos % (Auto) 0.4 Baso % (Auto) 0.2 Lymph # (Auto) 1.2 [place] # (Auto) 0.7 Eos # (Auto) 0.1 Baso # (Auto) 0.0 Abs Immat Gran (auto) 0.18 H Absolute Neuts (auto) 14.3 H Absolute Nucleated RBC 0.000 Nucleated RBC % (auto) 0.0 Anion Gap 18 Estim Creat Clear Calc 71.7 Estimated GFR 58 Random Glucose 153 H Lactic Acid 1.3 Calcium 8.5 Total Bilirubin 0.4 AST 37 H ALT 33 H Alkaline Phosphatase 716 H D Total Protein 6.4 L Albumin 2.7 L Urine Color Urine Appearance Urine pH Ur Specific [place] Urine Protein Urine Glucose (UA) Urine Ketones Urine Blood Urine Nitrite Ur Leukocyte Esterase Urine RBC Urine WBC Ur Squamous Epith Cells Urine Bacteria Hyaline Casts COVID-19 (JORDON) COVID-19 Clin Com Influenza Type A (PCR) Influenza Type B (PCR) RSV RNA Qual (PCR) SARS-CoV-2 RNA (RT-PCR) 09/08/22 09/08/22 09/08/22 08:49 08:49 10:11 MCV MCH MCHC RDW Plt Count MPV Immature Gran % (Auto) Neut % (Auto) Lymph % (Auto) [place] % (Auto) Eos % (Auto) Baso % (Auto) Lymph # (Auto) [place] # (Auto) Eos # (Auto) Baso # (Auto) Abs Immat Gran (auto) Absolute Neuts (auto) Absolute Nucleated RBC Nucleated RBC % (auto) Anion Gap Estim Creat Clear Calc Estimated GFR Random Glucose Lactic Acid Calcium Total Bilirubin AST ALT Alkaline Phosphatase Total Protein Albumin Urine Color Yellow Urine Appearance Clear Urine pH 5.5 Ur Specific [place] 1.025 Urine Protein 100 (2+) H Urine Glucose (UA) Negative Urine Ketones Negative Urine Blood Negative Urine Nitrite Negative Ur Leukocyte Esterase Small (1+) H Urine RBC 0-2 Urine WBC 21-50 H Ur Squamous Epith Cells >20 Urine Bacteria None Seen Hyaline Casts -20 COVID-19 (JORDON) Negative COVID-19 Clin Com See Note Influenza Type A (PCR) NEGATIVE Influenza Type B (PCR) NEGATIVE RSV RNA Qual (PCR) NEGATIVE SARS-CoV-2 RNA (RT-PCR) NEGATIVE Imaging Radiologist's Impressions: Impressions Abdomen/Pelvis CT 09/08/22 07:20 IMPRESSION: * The perinephric/subcapsular fluid collection of the right kidney has increased in size compared to 07/23/2022 and exerts mass effect upon the kidney which remains anteriorly displaced. The small calculi within the right kidney are unchanged in size. No hydronephrosis. * New fluid collections are observed posterior to the left hepatic lobe and posterior to the right hepatic lobe with the large lobulated, septated collection along the capsular surface of the posterior right lobe exerting mass effect upon the underlying liver. These fluid collections have attenuation in the range of water. No acute hemorrhage. * Cholelithiasis without evidence of acute cholecystitis. * Persistent splenomegaly. 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 #Loculated hepatic fluid collection -CT abdomen/pelvis shows new fluid collections in the posterior to left hepatic lobe and posterior right hepatic lobe with large lobulated septated fluid collection along the capsular surface of the posterior right lobe exerting mass effect upon the underlying liver having attenuation the range of water -gastroenterology consulted -CT-guided aspiration ordered -AST 37, ALT 33, alkaline phosphatase has doubled to 716 -CT with cholelithiasis without cholecystitis -Zosyn initiated given leukocytosis of 16.5 -pain management using pain scale -NPO for procedure -follow CMP -Hold aspirin # right perinephric fluid collection -urology consulted -urinalysis unremarkable. No MELODIE -CT-guided aspiration ordered -Zosyn initiated given leukocytosis of 16.5 -pain management using pain scale # sepsis secondary to suspected intra-abdominal infection -CT-guided aspiration as above -IV Zosyn -leukocytosis 16.5 with tachypnea and hypoxia. VS otherwise stable. Lactic acid normal, no MELODIE. No severe sepsis/shock -continue IVF -follow CBC # acute hypoxic respiratory failure of unclear etiology at this time -suspect undiagnosed chronic lung disease including ANNETTE -CXR ordered -CO2 low at 16. VBG ordered -continue supplemental O2 to maintain oximetry of 92% # insulin-dependent type 2 diabetes -POC glucose -diabetic diet -hold metformin -Humalog on sliding scale # hypertension-BP soft -hold BP meds # GERD -continue PPI DVT prophylaxis-mechanical Full code Patient requires inpatient stay of at least 2 midnights due to suspected intra-abdominal infection with evidence of sepsis requiring IV antibiotics, IV fluids, and further investigation into etiology hepatic and perinephric fluid collections with expert consultation required. Quality Stroke Does the patient have a stroke diagnosis?: No VTE Prior VTE?: No VTE Risk Level:: Medical - moderate - high VTE Device Contraindication: N/A - Device Ordered VTE Drug Contraindication: Treatment Not Indicated
[2022-09-08 13:56] LABS: VBG Base Excess -5.9 mmol/L; VBG HCO3 18 mmol/L (22-26); VBG pCO2 30 mmHg; VBG pH 7.38 (7.32-7.43); VBG pO2 167 mmHg
[2022-09-08] MEDS: HYDROmorphone HCl 0.5 MG/0.5 ML SYRINGE IVPUSH (13:57)
--- NOTE | 2022-09-08 13:58 | PC.NURSE ---
pt was medicated with her Dilaudid at approx 12 noon.
[2022-09-08] MEDS: Piperacillin Sodium/Tazobactam 3.375 GM in 0.9 % Sodium Chloride 50 ML IV ×2 (13:59→22:59)
[2022-09-08 14:02] LABS: Venous Blood Gas Refer to POC result
[2022-09-08 14:07] LABS: INTERNATIONAL NORM RATIO 1.1 (0.9-1.1); Prothrombin Time 12.4 SEC (10.0-13.1)
[2022-09-08 14:34] LABS: Estimated Average Glucose 192 mg/dL; Hemoglobin A1c % 8.3 %
[2022-09-08] MEDS: Lactated Ringers 1,000 ML 100 ML IVCONT (15:00)
--- NOTE | 2022-09-08 17:38 | HO.RADPN ---
RADIOLOGY Narrative Narrative: 10.2 fr drain placed in right renal collection. 600 ml brown purulent fluid aspirated. 10.2 fr drain placed in largest liver collection. 800 ml brown purulent fluid aspirated. specimens sent for gram stain and culture.
[2022-09-08 18:34] LABS: Glucose, Whole Blood 119 mg/dL (60-115)
[2022-09-08] MEDS: hydrOXYzine HCL 25 MG TABLET PO (19:16)
--- NOTE | 2022-09-08 19:19 | PC.NURSE ---
assumed care of patient at 1900. patient off unit for a while for surgical procedure. drainage bag for kidney and liver inserted. liver bag draining good amount. kidney bag yet to drain fluids. vital signs updated. patient resting comfortably wearing 2L O2 NC. no current complaints. patient ate dinner and required no insulin prior. call espinal within reach. will continue to monitor.
--- NOTE | 2022-09-08 20:01 | PM.GICN ---
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 Patient has had right sided constant flank pain 9/10 in severity, for 3 weeks which has been steadily getting worse, and extending into the groin area and upper abdomen. Paijn not worse with food, Associated with poor appetite and intake, weakness and chills. Denies any dysuria, frequency, urgency, urinary incontinence, or hematuria. She denies any fever. LABS: White blood cell count 16.5, decreased from prior admission (last WBC 18.6 on 07/28/2022).? AST 37, ALT 33, alkaline phosphatase elevated to 716.? Glucose 153.? Renal function stable.? Urinalysis unremarkable.? Imaging: CT of the abdomen/pelvis--right perinephric/subcapsular fluid collection increased in size from 07/23 study with mass effect on the kidney remaining anterior displaced with small calculi within the right kidney unchanged in size and without hydronephrosis.? There also new fluid collections observed the posterior to left hepatic lobe and posterior to right hepatic lobe with large lobulated, septated collection along the capsular surface of the posterior right lobe exerting mass effect upon the underlying liver.? The fluid collections have attenuation in the range of water without acute hemorrhage.? There is also cholelithiasis without evidence of acute cholecystitis and persistent splenomegaly.? ? Review of Systems Review of Systems: General: No fevers, malaise, unintentional weight loss HEENT: No blurred vision, diplopia. No sore throat, nasal congestion, rhinorrhea, sinus pain, ear pain Cardiovascular: No chest pain, palpitations, or leg edema Respiratory: +sob. No wheezing, cough GI: +rlq pain. +anorexia. +nausea. +diarrhea, +fecal incontinence. No vomiting, constipation, melena, hematochezia : +right flank pain. 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 Vitamin D deficiency Family History Family History Father Alzheimer's dementia Surgical History Surgical History History of arthroscopy of left knee (~12/2011) History of breast lump/mass excision (~03/2017) History of heart artery stent (~09/2015) History of surgery History of surgery Hx of cystoscopy Social History Social History Household Members: Other Household Members Other:: Roommate Housing: House Do you presently have visiting nurse or other home services: Yes Alcohol intake: former Patient Tobacco Use Status: Current everyday Tobacco user Tobacco use type: Cigarette Cigarettes Per Day: 18 Years Smoked: 30 +/- e-Cigarette/Vaping Use: Former Use Second Hand Smoke Exposure: Yes Substance Use Type: Marijuana Advance Directives: Yes Advance Directives on File: Yes Advance Directives Date on File: 07/23/22 service: No Current occupational status: disabled Cognitive needs: No Hearing needs: No Vision needs: Yes Meds Allergies Allergy/AdvReac Type Severity Reaction Status Date / Time No Known Allergies Allergy Verified 07/31/22 13:00 Active Medications: Current Medications Acetaminophen (Acetaminophen 325 Mg Tablet) 650 mg PO Q6H PRN PRN Reason: Pain, Mild (Pain Scale 1-3) Atorvastatin Calcium (Atorvastatin Calcium 80 Mg Tablet) 80 mg PO DAILY DENNIS Dextrose (Dextrose 50 % 25 Gm/50 Ml Syringe) 25 gm IVPUSH Q15M PRN; Protocol PRN Reason: per Hypoglycemia Standing Ord. Ergocalciferol (Ergocalciferol (Vitamin D2) 1,250 Mcg Capsule) 1,250 mcg PO SA [facility] Gabapentin (Gabapentin 100 Mg Capsule) 200 mg PO TID [facility] Last Admin: 09/08/22 19:17 Dose: Not Given Glucose (Glucose Gel 15 Gm Gel..Gram.) 15 gm PO Q15M PRN; Protocol PRN Reason: per Hypoglycemia Standing Ord. Hydromorphone HCl (Hydromorphone Hcl 1 Mg/Ml Syringe) 0.25 mg IVPUSH Q4H PRN; Protocol PRN Reason: Pain, Severe (Pain Scale 7-10) Hydroxyzine HCl (Hydroxyzine Hcl 25 Mg Tablet) 25 mg PO BID@0900,1700 [facility] Last Admin: 09/08/22 19:16 Dose: 25 mg Piperacillin Sod/Tazobactam (Sod 3.375 gm/ Sodium Chloride) 50 mls @ 100 mls/hr IV Q6H [facility] Last Infusion: 09/08/22 19:09 Dose: Infused Lactated Ringer's (Lr) 1,000 mls @ 100 mls/hr IVCONT .Q10H [facility] Last Admin: 09/08/22 15:00 Dose: 100 mls/hr Insulin Human Lispro (Insulin Lispro 100 Unit/Ml 3 Ml Vial) 0 unit SUBCUT QIDACHS [facility]; Protocol Last Admin: 09/08/22 19:11 Dose: Not Given Melatonin (Melatonin 3 Mg Tablet) 3 mg PO BEDTIME [facility] Multivitamins/Vitamin C (Multivitamin Tablet) 1 tab PO DAILY [facility] Nystatin (Nystatin Powder 15 Gm Bottle) 1 appl TOPICAL TID [facility]; Protocol Last Admin: 09/08/22 19:24 Dose: Not Given Omeprazole (Omeprazole 40 Mg Capsule.Dr) 40 mg PO DAILY@0630 [facility] Ondansetron HCl (Ondansetron Hcl 4 Mg/2 Ml Vial) 4 mg IVPUSH Q8H PRN PRN Reason: Nausea and Vomiting Oxycodone HCl (Oxycodone Hcl Immed Release 5 Mg Tablet) 5 mg PO Q6H PRN PRN Reason: Pain, Moderate (Pain Scale 4-6 Pharmacy Consult (Consult Rx Perform Med Rec) 1 each MISCELLANE ONCE PRN PRN Reason: Consult order Pyridoxine HCl (Pyridoxine Hcl (Vitamin B6) 50 Mg Tablet) 100 mg PO DAILY [facility] Sertraline HCl (Sertraline Hcl 100 Mg Tablet) 100 mg PO DAILY [facility] Sodium Chloride (0.9 % Sodium Chloride Flush 3 Ml Syringe) 3 ml IVFLUSH QSHIFT [facility] Last Admin: 09/08/22 19:10 Dose: Not Given Home Medications Medication Instructions Recorded Confirmed Last Taken Type aspirin 81 mg tablet,delayed 81 mg PO DAILY 09/18/20 09/08/22 09/07/22 History release melatonin 3 mg tablet 3 mg PO BEDTIME 03/17/21 09/08/22 09/07/22 History multivitamin with minerals-ferrous 1 tab PO DAILY 03/17/21 09/08/22 09/07/22 History sulfate 4.5 mg iron tablet (One Daily Multivitamins with Minerals) hydroxyzine pamoate 25 mg capsule 25 mg PO BID@0900,1700 05/01/22 09/08/22 09/07/22 History pen needle, diabetic 32 gauge x #50 ea 06/16/22 07/31/22 Unknown History (BD Ultra-Fine Gi Pen Needle) ergocalciferol (vitamin D2) 1,250 1,250 mcg PO SA 07/23/22 09/08/22 09/07/22 History mcg (50,000 unit) capsule (Vitamin D2) insulin aspart U-100 100 unit/mL 22 unit subcut DAILY 07/23/22 09/08/22 09/07/22 History (3 mL) subcutaneous pen (Novolog Flexpen U-100 Insulin aspart) metformin 500 mg tablet 500 mg PO DAILY@1200 07/23/22 09/08/22 09/07/22 History Physical Exam Vital Signs: Vital Signs: Last Vital Signs Temp 97.3 F 09/08/22 18:13 Pulse 92 09/08/22 19:18 Resp 18 09/08/22 19:18 BP 113/59 L 09/08/22 19:18 Pulse Ox 97 09/08/22 19:18 O2 Del Method 09/08/22 19:18 O2 Flow Rate 2 09/08/22 19:18 BMI result Body Mass Index 37.5 EXAM: GENERAL: The patient is obese, frail appaearing VITAL SIGNS:see workflow HEENT: Nonicteric sclerae, PERRLA, EOMI. Oropharynx clear. Moist mucous membranes. Conjunctivae appear well perfused. No thyroid mass. CHEST: Chest wall is nontender. HEART: Regular rate and rhythm without murmurs. LUNGS: Clear to auscultation bilaterally. ABDOMEN: Soft, positive bowel sounds, nontender, no organomegaly. + flank tenderness and ruq SKIN: No rash, no excessive bruising, petechiae, or purpura. NEUROLOGIC: Cranial nerves II-XII intact without defect Psych: Appearance: grossly normal Results Labs CBC & Chem 7: 09/08/22 06:45 09/08/22 06:45 Labs: Short CBC 09/08/22 Range/Units 06:45 WBC 16.5 H (4.8-10.8) X10*3/uL Hgb 8.6 L (12.0-16.0) g/dl Hct 28.4 L (37.0-47.0) % Plt Count 512 H (160-400) X10*3/uL BMP 09/08/22 06:45 Sodium 138 Potassium 3.5 D Chloride 108 Carbon Dioxide 16 L BUN 18 H Creatinine 0.99 Calcium 8.5 Liver Function 09/08/22 Range/Units 06:45 Total Bilirubin 0.4 (0.0-1.0) mg/dL AST 37 H (5-31) U/L ALT 33 H (0-31) U/L Alkaline Phosphatase 716 H D (39-117) U/L Albumin 2.7 L (3.5-5.0) g/dL Urine 09/08/22 Range/Units 08:49 Urine Color Yellow Urine Appearance Clear Urine pH 5.5 (5.0-9.0) Ur Specific [place] 1.025 (1.005-1.025) Urine Protein 100 (2+) H (Neg-Trace) mg/dL Urine Glucose (UA) Negative (Negative) mg/dL Imaging CT scan - abdomen: Attestation: I personally reviewed and interpreted this imaging study as follows: My impression: fluid collection around right kidney and liver Assessment and Plan (1) Acute flank pain: Status: Acute (2) Liver cyst: Status: Acute (3) Renal cyst, acquired, right: Status: Acute Plan 1/ FLuid collections in kidney and liver, likely infected maybe related to pevious urological procedures PLAN: 1/ Recommend driange of cysts and sending samples for c/s 2/ ID and urology input Procedures Date of Service Date of Service: 09/08/22
[2022-09-08 22:38] LABS: Glucose, Whole Blood 168 mg/dL (60-115)
[2022-09-08] MEDS: Gabapentin 100 MG CAPSULE 200 MG PO (22:59)
[2022-09-08] MEDS: Melatonin 3 MG TABLET PO (22:59)
[2022-09-08] MEDS: Insulin Lispro 100 UNIT/ML 3 ML VIAL SUBCUT (23:00)
[2022-09-09] VITALS (7 sets, daily range): BP systolic 112–134; BP diastolic 54–66; PULSE 54–93; RESP 17–18; TEMP 36.1–37.1; O2SAT 91–100
[2022-09-09] MEDS: Piperacillin Sodium/Tazobactam 3.375 GM in 0.9 % Sodium Chloride 50 ML IV ×4 (02:23→18:34)
[2022-09-09 06:01] LABS: MANUAL DIFF FLAG NO
[2022-09-09] MEDS: Lactated Ringers 1,000 ML 100 ML IVCONT ×2 (06:11→16:28)
[2022-09-09] MEDS: Omeprazole 40 MG CAPSULE.DR PO (06:11)
[2022-09-09 06:21] LABS: Basophils Percent Auto 0.2 % (0-2); Eosinophils Absolute Auto 0.1 X10*3/uL (0.0-0.4); Eosinophils Percent Auto 0.7 % (0-4); Hematocrit 28.1 % (37.0-47.0); Hemoglobin 8.3 g/dl (12.0-16.0); Imm Gran Abs Auto 0.19 X10*3/uL (0.00-0.03); Imm Gran Pct Auto 1.3 % (0.0-0.4); Lymphocytes Absolute Auto 1.4 X10*3/uL (1.2-4.9); Lymphocytes Percent Auto 9.9 % (20-40); Mean Corpuscular HGB Conc 29.5 g/dl (31.0-35.0); Mean Corpuscular Hemoglobin 23.9 pg (27.0-33.0); Monocytes Absolute Auto 0.6 X10*3/uL (0.1-1.2); Monocytes Percent Auto 4.3 % (2-11); Neutrophils Absolute Auto 12.1 x10*3/uL (2.0-8.3); Neutrophils Percent Auto 83.6 % (45-73); Platelet Count 565 X10*3/uL (160-400); Red Blood Count 3.47 X10*6/uL (4.20-5.50); White Blood Count 14.5 X10*3/uL (4.8-10.8)
[2022-09-09 06:25] LABS: Alanine Aminotransferase 32 U/L (0-31); Albumin Level 2.2 g/dL (3.5-5.0); Alkaline Phosphatase 650 U/L (39-117); Anion Gap 12 (12-20); Aspartate Amino Transferase 44 U/L (5-31); Bilirubin Total 0.4 mg/dL (0.0-1.0); Blood Urea Nitrogen 15 mg/dL (9-16); Calcium 8.3 mg/dL (8.4-10.2); Carbon Dioxide 22 mmol/L (22-29); Chloride 110 mmol/L (96-108); Creatinine Clr Calc Pharmacy 88.7; Estimated Glomerular Filt Rate > 60; Glucose Random 85 mg/dL (60-115); Potassium 3.7 mmol/L (3.3-5.1); Sodium 140 mmol/L (135-145); Total Protein 5.3 g/dL (6.5-8.0)
[2022-09-09 07:28] LABS: Glucose, Whole Blood 93 mg/dL (60-115)
--- NOTE | 2022-09-09 07:40 | P.PNIM_ITS ---
Subjective Subjective Date of Service: 09/09/22 Interval History: Seen in follow up for hepatic and perinephric abscesses with sepsis Interval history: Patient reports improvement in pain and is feeling better overall. 5/10 pain level. Still requiring nasal cannula due to hypoxia but feels work of breathing and shortness of breath has improved. Two drains placed yesterday by IR with 800ml drained from the liver and 600ml drained from right perinephric area. Fluid sent for c/s. Review of Systems General: No fevers, malaise, unintentional weight loss Cardiovascular: No chest pain, palpitations, or leg edema Respiratory: +sob. No wheezing, cough GI: No abdominal pain, nausea, vomiting, diarrhea, constipation, melena, hematochezia : +right flank pain. No dysuria, hematuria, increased urinary frequency, decreased urinary output MSK: No myalgia, back pain Neuro: No headaches, weakness, paresthesias Skin: No rashes or lesions Physical Exam Vital Signs: Vital Signs: Last Vital Signs Temp 98.7 F 09/09/22 07:22 Pulse 70 09/09/22 07:22 Resp 18 09/09/22 07:22 BP 125/60 09/09/22 07:22 Pulse Ox 98 09/09/22 07:22 O2 Del Method 09/09/22 07:22 O2 Flow Rate 2 09/09/22 04:00 BMI result Body Mass Index 37.5 Constitutional - Awake and Alert, No apparent distress Eyes - PERRLA, EOMI Cardiovascular - S1S2, RRR, No edema Respiratory - Normal lung expansion, Normal respiratory effort, No respiratory distress, CTA bilaterally Gastrointestinal - NT / ND; +BS; No rebound or guarding - No CVA tenderness. Two 10.[address] to right flank draining small amount purulent/sanguinous drainage without surrounding erythema or warmth. Extremities - no calf tenderness bilaterally, no swelling Skin - Warm/Dry Neurological - Alert & oriented x3 Objective Data Active Medications Acetaminophen (Acetaminophen 325 Mg Tablet) 650 mg PO Q6H PRN PRN Reason: Pain, Mild (Pain Scale 1-3) Atorvastatin Calcium (Atorvastatin Calcium 80 Mg Tablet) 80 mg PO DAILY DENNIS Dextrose (Dextrose 50 % 25 Gm/50 Ml Syringe) 25 gm IVPUSH Q15M PRN; Protocol PRN Reason: per Hypoglycemia Standing Ord. Ergocalciferol (Ergocalciferol (Vitamin D2) 1,250 Mcg Capsule) 1,250 mcg PO SA [facility] Gabapentin (Gabapentin 100 Mg Capsule) 200 mg PO TID [facility] Last Admin: 09/08/22 22:59 Dose: 200 mg Documented By: VLADIMIR Glucose (Glucose Gel 15 Gm Gel..Gram.) 15 gm PO Q15M PRN; Protocol PRN Reason: per Hypoglycemia Standing Ord. Hydromorphone HCl (Hydromorphone Hcl 1 Mg/Ml Syringe) 0.25 mg IVPUSH Q4H PRN; Protocol PRN Reason: Pain, Severe (Pain Scale 7-10) Hydroxyzine HCl (Hydroxyzine Hcl 25 Mg Tablet) 25 mg PO BID@0900,1700 [facility] Last Admin: 09/08/22 19:16 Dose: 25 mg Documented By: CHERELLE Piperacillin Sod/Tazobactam (Sod 3.375 gm/ Sodium Chloride) 50 mls @ 100 mls/hr IV Q6H [facility] Last Infusion: 09/09/22 06:48 Dose: 100 mls/hr Documented By: ROLLY Lactated Ringer's (Lr) 1,000 mls @ 100 mls/hr IVCONT .Q10H [facility] Last Admin: 09/09/22 06:11 Dose: 100 mls/hr Documented By: ROLLY Insulin Human Lispro (Insulin Lispro 100 Unit/Ml 3 Ml Vial) 0 unit SUBCUT QIDACHS [facility]; Protocol Last Admin: 09/08/22 23:00 Dose: 2 unit Documented By: VLADIMIR Melatonin (Melatonin 3 Mg Tablet) 3 mg PO BEDTIME [facility] Last Admin: 09/08/22 22:59 Dose: 3 mg Documented By: VLADIMIR Multivitamins/Vitamin C (Multivitamin Tablet) 1 tab PO DAILY [facility] Nystatin (Nystatin Powder 15 Gm Bottle) 1 appl TOPICAL TID [facility]; Protocol Last Admin: 09/08/22 23:01 Dose: Not Given Documented By: VLADIMIR Non-Admin Reason: not available Omeprazole (Omeprazole 40 Mg Марина.) 40 mg PO DAILY@0630 [facility] Last Admin: 09/09/22 06:11 Dose: 40 mg Documented By: ROLLY Ondansetron HCl (Ondansetron Hcl 4 Mg/2 Ml Vial) 4 mg IVPUSH Q8H PRN PRN Reason: Nausea and Vomiting Oxycodone HCl (Oxycodone Hcl Immed Release 5 Mg Tablet) 5 mg PO Q6H PRN PRN Reason: Pain, Moderate (Pain Scale 4-6 Pharmacy Consult (Consult Rx Perform Med Rec) 1 each MISCELLANE ONCE PRN PRN Reason: Consult order Pyridoxine HCl (Pyridoxine Hcl (Vitamin B6) 50 Mg Tablet) 100 mg PO DAILY DENNIS Sertraline HCl (Sertraline Hcl 100 Mg Tablet) 100 mg PO DAILY DENNIS Sodium Chloride (0.9 % Sodium Chloride Flush 3 Ml Syringe) 3 ml IVFLUSH QSHIFT DENNIS Last Admin: 09/09/22 02:02 Dose: Not Given Documented By: ROLLY Non-Admin Reason: IV Running Labs CBC & Chem 7: 09/09/22 05:14 09/09/22 05:14 Labs: Laboratory Results - last 24 hr 09/08/22 09/08/22 09/08/22 06:45 08:49 08:49 MCV MCH MCHC RDW Plt Count MPV Immature Gran % (Auto) Neut % (Auto) Lymph % (Auto) [place] % (Auto) Eos % (Auto) Baso % (Auto) Lymph # (Auto) [place] # (Auto) Eos # (Auto) Baso # (Auto) Abs Immat Gran (auto) Absolute Neuts (auto) Absolute Nucleated RBC Nucleated RBC % (auto) PT INR VBG pH VBG pCO2 VBG pO2 VBG HCO3 VBG O2 Saturation VBG Base Excess Anion Gap Estim Creat Clear Calc Estimated GFR POC Glucose Random Glucose Estimat Average Glucose 192 Hemoglobin A1c % 8.3 Calcium Total Bilirubin AST ALT Alkaline Phosphatase Total Protein Albumin Urine Color Yellow Urine Appearance Clear Urine pH 5.5 Ur Specific [place] 1.025 Urine Protein 100 (2+) H Urine Glucose (UA) Negative Urine Ketones Negative Urine Blood Negative Urine Nitrite Negative Ur Leukocyte Esterase Small (1+) H Urine RBC 0-2 Urine WBC 21-50 H Ur Squamous Epith Cells >20 Urine Bacteria None Seen Hyaline Casts 09-20 COVID-19 (JORDON) Negative COVID-19 Clin Com See Note Influenza Type A (PCR) Influenza Type B (PCR) RSV RNA Qual (PCR) SARS-CoV-2 RNA (RT-PCR) 09/08/22 09/08/22 09/08/22 10:11 13:46 13:50 MCV MCH MCHC RDW Plt Count MPV Immature Gran % (Auto) Neut % (Auto) Lymph % (Auto) [place] % (Auto) Eos % (Auto) Baso % (Auto) Lymph # (Auto) [place] # (Auto) Eos # (Auto) Baso # (Auto) Abs Immat Gran (auto) Absolute Neuts (auto) Absolute Nucleated RBC Nucleated RBC % (auto) PT 12.4 INR 1.1 VBG pH 7.38 VBG pCO2 30 VBG pO2 167 VBG HCO3 18 L VBG O2 Saturation 99.0 VBG Base Excess -5.9 Anion Gap Estim Creat Clear Calc Estimated GFR POC Glucose Random Glucose Estimat Average Glucose Hemoglobin A1c % Calcium Total Bilirubin AST ALT Alkaline Phosphatase Total Protein Albumin Urine Color Urine Appearance Urine pH Ur Specific [place] Urine Protein Urine Glucose (UA) Urine Ketones Urine Blood Urine Nitrite Ur Leukocyte Esterase Urine RBC Urine WBC Ur Squamous Epith Cells Urine Bacteria Hyaline Casts COVID-19 (JORDON) COVID-19 Clin Com Influenza Type A (PCR) NEGATIVE Influenza Type B (PCR) NEGATIVE RSV RNA Qual (PCR) NEGATIVE SARS-CoV-2 RNA (RT-PCR) NEGATIVE 09/08/22 09/08/22 09/09/22 18:30 22:32 05:14 MCV 81.0 MCH 23.9 L MCHC 29.5 L RDW 19.0 H Plt Count 565 H MPV 10.0 Immature Gran % (Auto) 1.3 H Neut % (Auto) 83.6 H Lymph % (Auto) 9.9 L [place] % (Auto) 4.3 Eos % (Auto) 0.7 Baso % (Auto) 0.2 Lymph # (Auto) 1.4 [place] # (Auto) 0.6 Eos # (Auto) 0.1 Baso # (Auto) 0.0 Abs Immat Gran (auto) 0.19 H Absolute Neuts (auto) 12.1 H Absolute Nucleated RBC 0.000 Nucleated RBC % (auto) 0.0 PT INR VBG pH VBG pCO2 VBG pO2 VBG HCO3 VBG O2 Saturation VBG Base Excess Anion Gap Estim Creat Clear Calc Estimated GFR POC Glucose 119 H 168 H Random Glucose Estimat Average Glucose Hemoglobin A1c % Calcium Total Bilirubin AST ALT Alkaline Phosphatase Total Protein Albumin Urine Color Urine Appearance Urine pH Ur Specific [place] Urine Protein Urine Glucose (UA) Urine Ketones Urine Blood Urine Nitrite Ur Leukocyte Esterase Urine RBC Urine WBC Ur Squamous Epith Cells Urine Bacteria Hyaline Casts COVID-19 (JORDON) COVID-19 Clin Com Influenza Type A (PCR) Influenza Type B (PCR) RSV RNA Qual (PCR) SARS-CoV-2 RNA (RT-PCR) 09/09/22 09/09/22 05:14 07:21 MCV MCH MCHC RDW Plt Count MPV Immature Gran % (Auto) Neut % (Auto) Lymph % (Auto) [place] % (Auto) Eos % (Auto) Baso % (Auto) Lymph # (Auto) [place] # (Auto) Eos # (Auto) Baso # (Auto) Abs Immat Gran (auto) Absolute Neuts (auto) Absolute Nucleated RBC Nucleated RBC % (auto) PT INR VBG pH VBG pCO2 VBG pO2 VBG HCO3 VBG O2 Saturation VBG Base Excess Anion Gap 12 Estim Creat Clear Calc 88.7 Estimated GFR > 60 POC Glucose 93 Random Glucose 85 Estimat Average Glucose Hemoglobin A1c % Calcium 8.3 L Total Bilirubin 0.4 AST 44 H ALT 32 H Alkaline Phosphatase 650 H Total Protein 5.3 L Albumin 2.2 L Urine Color Urine Appearance Urine pH Ur Specific [place] Urine Protein Urine Glucose (UA) Urine Ketones Urine Blood Urine Nitrite Ur Leukocyte Esterase Urine RBC Urine WBC Ur Squamous Epith Cells Urine Bacteria Hyaline Casts COVID-19 (JORDON) COVID-19 Clin Com Influenza Type A (PCR) Influenza Type B (PCR) RSV RNA Qual (PCR) SARS-CoV-2 RNA (RT-PCR) Assessment and Plan (1) Hepatic abscess: Status: Acute (2) Renal abscess: Status: Acute (3) Sepsis: Status: Acute Plan 51 year old female with a 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 #Hepatic abscess -IR placed drains yesterday with 800cc from the liver. -IR recommended general surgery eval. No surgical intervention necessary per surgery. Pt with asymptomatic cholelithiasis. May benefit from bariatric intervention in the future for weight management, but not contributing to acute presentation. - Continue drain management -gastroenterology consulted -CT-guided aspiration ordered -Alk phos trending down. AST/ALT stable. Follow CMP -WBC tending down. -Continue zosyn -pain management using pain scale -Hold aspirin -ID consulted for additional input on source of abscesses -Follow CMP and CBC #Right perirenal abscess -IR placed drains yesterday with 600cc from the right perinephric region. Recommending general surgery consultation. See above. - Continue drain management -WBC tending down -Continue zosyn -Appreciate urology input -urinalysis unremarkable.? No MELODIE -ID consulted for additional input on source of abscesses -WBC trending down. Follow CBC -pain management using pain scale # sepsis secondary to suspected intra-abdominal infection -clinically improving -IV Zosyn -WBC tranding down. VSS -continue IVF -follow CBC # acute hypoxic respiratory failure likely secondary to infection with probable underlying chronic lung disease including ANNETTE -CXR showing mild bibasilar linear atelectasis/scarring. No acute process. -CO2 improved to 22 -continue supplemental O2 to maintain oximetry of 92%. Titrate as appropropriate # insulin-dependent type 2 diabetes -POC glucose -diabetic diet -hold metformin -Humalog on sliding scale # hypertension-BP soft -hold BP meds # GERD -continue PPI #severe obesity -Weight loss efforts advised -Per Dr. Churchill, may benefit from weight loss surgery DVT prophylaxis-mechanical Full code Patient requires ongoing inpatient stay due to hepatic and renal abscesses requiring surgical drainage with drains in place with sepsis requiring IV abx with c/s report pending. Quality Stroke Does the patient have a stroke diagnosis?: No VTE Prior VTE?: No VTE Risk Level:: Medical - moderate - high VTE Device Contraindication: N/A - Device Ordered VTE Drug Contraindication: Treatment Not Indicated
[2022-09-09] MEDS: 0.9 % Sodium Chloride Flush 3 ML SYRINGE IVFLUSH (08:34)
[2022-09-09] MEDS: Pyridoxine HCl (Vitamin B6) 50 MG TABLET 100 MG PO (08:46)
[2022-09-09] MEDS: Sertraline HCL 100 MG TABLET PO (08:46)
[2022-09-09] MEDS: Gabapentin 100 MG CAPSULE 200 MG PO ×3 (08:46→20:02)
[2022-09-09] MEDS: Multivitamin TABLET 1 TAB PO (08:46)
[2022-09-09] MEDS: hydrOXYzine HCL 25 MG TABLET PO ×2 (08:46→16:28)
[2022-09-09] MEDS: oxyCODONE HCl Immed Release 5 MG TABLET PO ×3 (08:46→22:13)
[2022-09-09] MEDS: Atorvastatin Calcium 80 MG TABLET PO (08:47)
[2022-09-09] MEDS: Nystatin Powder 15 GM BOTTLE 1 APPL TOPICAL (08:47)
--- NOTE | 2022-09-09 10:18 | PM.CNGS ---
History of Present Illness Consult details Consult date: 09/09/22 Requesting physician: Whit Townsend Narrative: The patient is a 52-year-old woman with poorly controlled type 2 diabetes, morbid obesity and right renal infections/abscesses with hepatomegaly and splenomegaly. Incidental gallstones are noted on her radiographic studies. She was admitted to the hospitalist service for percutaneous drainage of an hepatic and renal abscess and I was asked to help direct her care, given the size & persistence of the abscesses. The patient reports she feels much better now that the abscesses have been drained and that she feels better than last time. In reviewing her dietary history, she denies any chronic issues suggestive of symptomatic gallstones such as postprandial indigestion, biliary colic symptoms, nausea or vomiting. She reports predominantly localized right side/flank pain that has improved since drainage. She denies any dysphagia, odynophagia, hematemesis or unexplained weight loss. 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 Vitamin D deficiency Family History Family History Father Alzheimer's dementia Surgical History Surgical History History of arthroscopy of left knee (~12/2011) History of breast lump/mass excision (~03/2017) History of heart artery stent (~09/2015) History of surgery History of surgery Hx of cystoscopy Social History Social History Household Members: Other Household Members Other:: Roommate Housing: House Do you presently have visiting nurse or other home services: Yes Alcohol intake: former Patient Tobacco Use Status: Current everyday Tobacco user Tobacco use type: Cigarette Cigarettes Per Day: 18 Years Smoked: 30 +/- e-Cigarette/Vaping Use: Former Use Second Hand Smoke Exposure: Yes Substance Use Type: Marijuana Advance Directives Date on File: 07/23/22 service: No Current occupational status: disabled Cognitive needs: No Hearing needs: No Vision needs: Yes Meds Allergies Allergy/AdvReac Type Severity Reaction Status Date / Time No Known Allergies Allergy Verified 07/31/22 13:00 Active Medications: Current Medications Acetaminophen (Acetaminophen 325 Mg Tablet) 650 mg PO Q6H PRN PRN Reason: Pain, Mild (Pain Scale 1-3) Atorvastatin Calcium (Atorvastatin Calcium 80 Mg Tablet) 80 mg PO DAILY [facility] Last Admin: 09/09/22 08:47 Dose: 80 mg Dextrose (Dextrose 50 % 25 Gm/50 Ml Syringe) 25 gm IVPUSH Q15M PRN; Protocol PRN Reason: per Hypoglycemia Standing Ord. Ergocalciferol (Ergocalciferol (Vitamin D2) 1,250 Mcg Capsule) 1,250 mcg PO SA DENNIS Gabapentin (Gabapentin 100 Mg Capsule) 200 mg PO TID [facility] Last Admin: 09/09/22 08:46 Dose: 200 mg Glucose (Glucose Gel 15 Gm Gel..Gram.) 15 gm PO Q15M PRN; Protocol PRN Reason: per Hypoglycemia Standing Ord. Hydromorphone HCl (Hydromorphone Hcl 1 Mg/Ml Syringe) 0.25 mg IVPUSH Q4H PRN; Protocol PRN Reason: Pain, Severe (Pain Scale 7-10) Hydroxyzine HCl (Hydroxyzine Hcl 25 Mg Tablet) 25 mg PO BID@0900,1700 [facility] Last Admin: 09/09/22 08:46 Dose: 25 mg Piperacillin Sod/Tazobactam (Sod 3.375 gm/ Sodium Chloride) 50 mls @ 100 mls/hr IV Q6H [facility] Last Infusion: 09/09/22 09:16 Dose: Infused Lactated Ringer's (Lr) 1,000 mls @ 100 mls/hr IVCONT .Q10H [facility] Last Admin: 09/09/22 06:11 Dose: 100 mls/hr Insulin Human Lispro (Insulin Lispro 100 Unit/Ml 3 Ml Vial) 0 unit SUBCUT QIDACHS [facility]; Protocol Last Admin: 09/09/22 07:49 Dose: Not Given Melatonin (Melatonin 3 Mg Tablet) 3 mg PO BEDTIME [facility] Last Admin: 09/08/22 22:59 Dose: 3 mg Multivitamins/Vitamin C (Multivitamin Tablet) 1 tab PO DAILY [facility] Last Admin: 09/09/22 08:46 Dose: 1 tab Nystatin (Nystatin Powder 15 Gm Bottle) 1 appl TOPICAL TID [facility]; Protocol Last Admin: 09/09/22 08:47 Dose: 1 appl Omeprazole (Omeprazole 40 Mg Capsule.Dr) 40 mg PO DAILY@0630 [facility] Last Admin: 09/09/22 06:11 Dose: 40 mg Ondansetron HCl (Ondansetron Hcl 4 Mg/2 Ml Vial) 4 mg IVPUSH Q8H PRN PRN Reason: Nausea and Vomiting Oxycodone HCl (Oxycodone Hcl Immed Release 5 Mg Tablet) 5 mg PO Q6H PRN PRN Reason: Pain, Moderate (Pain Scale 4-6 Last Admin: 09/09/22 08:46 Dose: 5 mg Pharmacy Consult (Consult Rx Perform Med Rec) 1 each MISCELLANE ONCE PRN PRN Reason: Consult order Pyridoxine HCl (Pyridoxine Hcl (Vitamin B6) 50 Mg Tablet) 100 mg PO DAILY [facility] Last Admin: 09/09/22 08:46 Dose: 100 mg Sertraline HCl (Sertraline Hcl 100 Mg Tablet) 100 mg PO DAILY [facility] Last Admin: 09/09/22 08:46 Dose: 100 mg Sodium Chloride (0.9 % Sodium Chloride Flush 3 Ml Syringe) [facility] Last Admin: 09/09/22 08:34 Dose: 3 ml Home Medications Medication Instructions Recorded Confirmed Last Taken Type aspirin 81 mg tablet,delayed 81 mg PO DAILY 09/18/20 09/08/22 09/07/22 History release melatonin 3 mg tablet 3 mg PO BEDTIME 03/17/21 09/08/22 09/07/22 History multivitamin with minerals-ferrous 1 tab PO DAILY 03/17/21 09/08/22 09/07/22 History sulfate 4.5 mg iron tablet (One Daily Multivitamins with Minerals) hydroxyzine pamoate 25 mg capsule 25 mg PO BID@0900,1700 05/01/22 09/08/22 09/07/22 History pen needle, diabetic 32 gauge x #50 ea 06/16/22 07/31/22 Unknown History (BD Ultra-Fine Gi Pen Needle) ergocalciferol (vitamin D2) 1,250 1,250 mcg PO SA 07/23/22 09/08/22 09/07/22 History mcg (50,000 unit) capsule (Vitamin D2) insulin aspart U-100 100 unit/mL 22 unit subcut DAILY 07/23/22 09/08/22 09/07/22 History (3 mL) subcutaneous pen (Novolog Flexpen U-100 Insulin aspart) metformin 500 mg tablet 500 mg PO DAILY@1200 07/23/22 09/08/22 09/07/22 History Physical Exam Vital Signs: Vital Signs: Last Vital Signs Temp 98.5 F 09/09/22 07:53 Pulse 68 09/09/22 07:53 Resp 18 09/09/22 07:53 BP 134/64 09/09/22 07:53 Pulse Ox 98 09/09/22 07:53 O2 Del Method 09/09/22 07:53 O2 Flow Rate 2 09/09/22 04:00 BMI result Body Mass Index 37.5 The patient is non-toxic & in good spirits NC/AT, PERRLA, EOMI Mood, affect & judgment all appear appropriate Sclera anicteric conjunctiva pink and moist Oropharynx is clear with no aphthous ulcers, Mallampati class 4, mucous membranes moist Heart is regular, normal S1-S2 no rubs or murmurs Lungs are clear and equal anteriorly with no audible wheezing, rubs or dullness to percussion Abdomen is obese with no obvious hernias. The right side of her abdomen and flank remain tender to palpation but she notes this is improved since yesterday. No HSM, rebound, rigidity, guarding, masses or bruits are present. Rectal exam is deferred Skin has good turgor and is free of rashes Extremities free of cyanosis clubbing edema Results Labs Result diagrams: 09/09/22 05:14 09/09/22 05:14 Labs: Abnormal lab results 09/08/22 09/08/22 09/08/22 Range/Units 13:50 18:30 22:32 WBC (4.8-10.8) X10*3/uL RBC (4.20-5.50) X10*6/uL Hgb (12.0-16.0) g/dl Hct (37.0-47.0) % MCH (27.0-33.0) pg MCHC (31.0-35.0) g/dl RDW (11.0-16.0) % Plt Count (160-400) X10*3/uL Immature Gran % (Auto) (0.0-0.4) % Neut % (Auto) (45-73) % Lymph % (Auto) (20-40) % Abs Immat Gran (auto) (0.00-0.03) X10*3/uL Absolute Neuts (auto) (2.0-8.3) x10*3/uL VBG HCO3 18 L (22-26) mmol/L Chloride (96-108) mmol/L POC Glucose 119 H 168 H (60-115) mg/dL Calcium (8.4-10.2) mg/dL AST (5-31) U/L ALT (0-31) U/L Alkaline Phosphatase (39-117) U/L Total Protein (6.5-8.0) g/dL Albumin (3.5-5.0) g/dL 09/09/22 09/09/22 Range/Units 05:14 05:14 WBC 14.5 H (4.8-10.8) X10*3/uL RBC 3.47 L (4.20-5.50) X10*6/uL Hgb 8.3 L (12.0-16.0) g/dl Hct 28.1 L (37.0-47.0) % MCH 23.9 L (27.0-33.0) pg MCHC 29.5 L (31.0-35.0) g/dl RDW 19.0 H (11.0-16.0) % Plt Count 565 H (160-400) X10*3/uL Immature Gran % (Auto) 1.3 H (0.0-0.4) % Neut % (Auto) 83.6 H (45-73) % Lymph % (Auto) 9.9 L (20-40) % Abs Immat Gran (auto) 0.19 H (0.00-0.03) X10*3/uL Absolute Neuts (auto) 12.1 H (2.0-8.3) x10*3/uL VBG HCO3 (22-26) mmol/L Chloride 110 H (96-108) mmol/L POC Glucose (60-115) mg/dL Calcium 8.3 L (8.4-10.2) mg/dL AST 44 H (5-31) U/L ALT 32 H (0-31) U/L Alkaline Phosphatase 650 H (39-117) U/L Total Protein 5.3 L (6.5-8.0) g/dL Albumin 2.2 L (3.5-5.0) g/dL Short CBC 09/09/22 Range/Units 05:14 WBC 14.5 H (4.8-10.8) X10*3/uL Hgb 8.3 L (12.0-16.0) g/dl Hct 28.1 L (37.0-47.0) % Plt Count 565 H (160-400) X10*3/uL BMP 09/09/22 05:14 Sodium 140 Potassium 3.7 Chloride 110 H Carbon Dioxide 22 BUN 15 Creatinine 0.80 Calcium 8.3 L Liver Function 09/09/22 Range/Units 05:14 Total Bilirubin 0.4 (0.0-1.0) mg/dL AST 44 H (5-31) U/L ALT 32 H (0-31) U/L Alkaline Phosphatase 650 H (39-117) U/L Albumin 2.2 L (3.5-5.0) g/dL Urine 09/08/22 Range/Units 08:49 Urine Color Yellow Urine Appearance Clear Urine pH 5.5 (5.0-9.0) Ur Specific [place] 1.025 (1.005-1.025) Urine Protein 100 (2+) H (Neg-Trace) mg/dL Urine Glucose (UA) Negative (Negative) mg/dL All other labs normal. 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 transplanted heart: [place] heart Qualified Code(s): I25.10 - Atherosclerotic heart disease of [place] coronary artery without angina pectoris Status: Acute (4) Essential hypertension: Status: Acute (5) Renal abscess: Status: Acute (6) Hepatic abscess: Status: Acute (7) Smoking: Status: Acute (8) Type 2 diabetes mellitus with unspecified complications: Status: Acute (9) Hepatomegaly: Status: Acute (10) Splenomegaly: Status: Acute (11) Gallstones: Status: Acute Plan In reviewing the patient's history, she is not relating a history that is worrisome for biliary colic or gallbladder disease at this time. She does note decreased appetite since she has been having kidney infections but denies any weight loss. In reviewing her diet, she seems to be making poor dietary choices noting that she is concentrating on starches more than lean healthy protein. Given this, I would continue to monitor her gallstones since they do not seem to be symptomatic at this time. Explained to the patient the roughly 10% of Americans have gallstones and that only a minority ever develops symptoms. Regarding the hepatic abscess and recurring right renal abscess, urology and Infectious Disease input will be helpful in determining a course of action. I do not appreciate any acute general surgery pathology to explain these ongoing abscesses. Please call me with direct general surgery concerns and will be available to facilitate the patient's care. Will follow. Procedures Date of Service Date of Service: 09/09/22
[2022-09-09 11:18] LABS: Glucose, Whole Blood 139 mg/dL (60-115)
--- NOTE | 2022-09-09 14:45 | MHC.CM.PN ---
Addendum entered by Maral Acevedo RN 09/09/22 15:13: [facility]- PATIENT IS ACTIVE WITH HALFWAY. Original Note: PATIENT LIVES WITH HER FRIEND/ROOMMATE. HCP ON FILE AND VERIFIED SHE HAS DAILY [facility] SERVICES FOR VITALS AND MEDICATION MANAGEMENT [facility] AND [facility]ALKER IN THE HOME PCP IS BERE YANCEY. REFERRAL ALSO PLACED TO [facility] PER PATIENT REQUEST IN THE EVENT THAT THIS IS RECOMMENDED IMM 09/09 IN CHART
[2022-09-09 15:52] LABS: Glucose, Whole Blood 170 mg/dL (60-115)
[2022-09-09] MEDS: Insulin Lispro 100 UNIT/ML 3 ML VIAL SUBCUT (16:28)
[2022-09-09] MEDS: Melatonin 3 MG TABLET PO (20:02)
[2022-09-09 20:13] LABS: Glucose, Whole Blood 145 mg/dL (60-115)
--- NOTE | 2022-09-09 22:51 | PC.NURSE ---
At 1999, IVLine on the right hand was noted with mild tenderness and swelling with slight leaking when flushed, ivline removed with cannula intact, new IVline g 22 inserted aseptically on the left wrist, pt tolerated well.
[2022-09-10] MEDS: Piperacillin Sodium/Tazobactam 3.375 GM in 0.9 % Sodium Chloride 50 ML IV ×4 (00:47→18:21)
[2022-09-10 03:17] VITALS: BP 132/68; PULSE 78; RESP 18; TEMP 36.2; O2SAT 97
--- NOTE | 2022-09-10 03:49 | PC.NURSE ---
Pt desats at 84% RA around midnight, encouraged to do some deep breathing and O2 sats went up to 88% RA, O2 at 2L/min via NC placed, O2 sats went to low 90s.
[2022-09-10] MEDS: Lactated Ringers 1,000 ML 100 ML IVCONT (04:41)
[2022-09-10] MEDS: Omeprazole 40 MG CAPSULE.DR PO (06:00)
[2022-09-10 07:14] LABS: MANUAL DIFF FLAG NO
[2022-09-10 07:20] VITALS: BP 130/65; PULSE 78; RESP 17; TEMP 36.3; O2SAT 96
[2022-09-10 07:21] LABS: Basophils Percent Auto 0.3 % (0-2); Eosinophils Absolute Auto 0.1 X10*3/uL (0.0-0.4); Eosinophils Percent Auto 0.8 % (0-4); Hematocrit 26.7 % (37.0-47.0); Imm Gran Abs Auto 0.13 X10*3/uL (0.00-0.03); Imm Gran Pct Auto 1.1 % (0.0-0.4); Lymphocytes Absolute Auto 1.2 X10*3/uL (1.2-4.9); Mean Corpuscular Hemoglobin 24.2 pg (27.0-33.0); Mean Corpuscular Volume 80.9 fL (80.0-98.0); Mean Platelet Volume 9.4 fL (9.4-12.3); Monocytes Absolute Auto 0.7 X10*3/uL (0.1-1.2); Monocytes Percent Auto 6.2 % (2-11); NRBC Pct Auto 0.2 /100WBC (0.0-0.2); Neutrophils Absolute Auto 9.5 x10*3/uL (2.0-8.3); Neutrophils Percent Auto 81.6 % (45-73); Platelet Count 502 X10*3/uL (160-400); Red Cell Distribution Width 18.9 % (11.0-16.0); White Blood Count 11.7 X10*3/uL (4.8-10.8)
[2022-09-10 07:42] LABS: Glucose, Whole Blood 144 mg/dL (60-115)
[2022-09-10 07:51] LABS: Alanine Aminotransferase 25 U/L (0-31); Albumin Level 2.2 g/dL (3.5-5.0); Alkaline Phosphatase 524 U/L (39-117); Anion Gap 11 (12-20); Aspartate Amino Transferase 21 U/L (5-31); Bilirubin Total 0.3 mg/dL (0.0-1.0); Blood Urea Nitrogen 11 mg/dL (9-16); Calcium 8.1 mg/dL (8.4-10.2); Carbon Dioxide 23 mmol/L (22-29); Chloride 110 mmol/L (96-108); Estimated Glomerular Filt Rate > 60; Glucose Random 157 mg/dL (60-115); Potassium 4.1 mmol/L (3.3-5.1); Sodium 140 mmol/L (135-145); Total Protein 5.2 g/dL (6.5-8.0)
[2022-09-10] MEDS: Sertraline HCL 100 MG TABLET PO (07:58)
[2022-09-10] MEDS: Acetaminophen 325 MG TABLET 650 MG PO ×2 (07:58→15:31)
[2022-09-10] MEDS: Atorvastatin Calcium 80 MG TABLET PO (07:58)
[2022-09-10] MEDS: hydrOXYzine HCL 25 MG TABLET PO ×2 (07:58→18:22)
[2022-09-10] MEDS: Pyridoxine HCl (Vitamin B6) 50 MG TABLET 100 MG PO (07:58)
[2022-09-10] MEDS: Multivitamin TABLET 1 TAB PO (07:59)
[2022-09-10] MEDS: Gabapentin 100 MG CAPSULE 200 MG PO ×3 (07:59→19:56)
--- NOTE | 2022-09-10 09:03 | HO.PM.IMPN ---
Subjective Subjective Date of Service: 09/10/22 Interval History: cc: right flnak pain interval history:improving Cardiovascular Cardiovascular: Reports no additional cardiovascular complaints Respiratory Respiratory: Reports no additional respiratory complaints Physical Exam Vital Signs: Vital Signs: Last Vital Signs Temp 97.4 F 09/10/22 07:20 Pulse 78 09/10/22 07:20 Resp 17 09/10/22 07:20 BP 130/65 09/10/22 07:20 Pulse Ox 96 09/10/22 07:20 O2 Del Method 09/10/22 07:20 O2 Flow Rate 2.0 09/10/22 07:20 BMI result Body Mass Index 37.5 General: AO X 3, no acute distress Resp: CTA bilateral, no accessory muscles used CVS: S1,S2,RRR GI: soft, non tender, non distended, drains in place Neuro: motor grossly intact, alert Psych: appropriate affect, appropriate insight Objective Data Active Medications Acetaminophen (Acetaminophen 325 Mg Tablet) 650 mg PO Q6H PRN PRN Reason: Pain, Mild (Pain Scale 1-3) Last Admin: 09/10/22 07:58 Dose: 650 mg Documented By: DIEGO Atorvastatin Calcium (Atorvastatin Calcium 80 Mg Tablet) 80 mg PO DAILY [facility] Last Admin: 09/10/22 07:58 Dose: 80 mg Documented By: DIEGO Dextrose (Dextrose 50 % 25 Gm/50 Ml Syringe) 25 gm IVPUSH Q15M PRN; Protocol PRN Reason: per Hypoglycemia Standing Ord. Ergocalciferol (Ergocalciferol (Vitamin D2) 1,250 Mcg Capsule) 1,250 mcg PO SA [facility] Gabapentin (Gabapentin 100 Mg Capsule) 200 mg PO TID [facility] Last Admin: 09/10/22 07:59 Dose: 200 mg Documented By: DIEGO Glucose (Glucose Gel 15 Gm Gel..Gram.) 15 gm PO Q15M PRN; Protocol PRN Reason: per Hypoglycemia Standing Ord. Hydromorphone HCl (Hydromorphone Hcl 1 Mg/Ml Syringe) 0.25 mg IVPUSH Q4H PRN; Protocol PRN Reason: Pain, Severe (Pain Scale 7-10) Hydroxyzine HCl (Hydroxyzine Hcl 25 Mg Tablet) 25 mg PO BID@0900,1700 [facility] Last Admin: 09/10/22 07:58 Dose: 25 mg Documented By: DIEGO Piperacillin Sod/Tazobactam (Sod 3.375 gm/ Sodium Chloride) 50 mls @ 100 mls/hr IV Q6H [facility] Last Infusion: 09/10/22 06:37 Dose: 0 mls/hr Documented By: GIA Lactated Ringer's (Lr) 1,000 mls @ 100 mls/hr IVCONT .Q10H [facility] Last Admin: 09/10/22 04:41 Dose: 100 mls/hr Documented By: GIA Insulin Human Lispro (Insulin Lispro 100 Unit/Ml 3 Ml Vial) 0 unit SUBCUT QIDACHS [facility]; Protocol Last Admin: 09/10/22 07:46 Dose: Not Given Documented By: DIEGO Non-Admin Reason: No Insulin Coverage Melatonin (Melatonin 3 Mg Tablet) 3 mg PO BEDTIME [facility] Last Admin: 09/09/22 20:02 Dose: 3 mg Documented By: GIA Multivitamins/Vitamin C (Multivitamin Tablet) 1 tab PO DAILY [facility] Last Admin: 09/10/22 07:59 Dose: 1 tab Documented By: DIEGO Nystatin (Nystatin Powder 15 Gm Bottle) 1 appl TOPICAL TID [facility]; Protocol Last Admin: 09/09/22 20:04 Dose: Not Given Documented By: GIA Non-Admin Reason: Med Not Available Omeprazole (Omeprazole 40 Mg Capsule.Dr) 40 mg PO DAILY@0630 [facility] Last Admin: 09/10/22 06:00 Dose: 40 mg Documented By: GIA Ondansetron HCl (Ondansetron Hcl 4 Mg/2 Ml Vial) 4 mg IVPUSH Q8H PRN PRN Reason: Nausea and Vomiting Oxycodone HCl (Oxycodone Hcl Immed Release 5 Mg Tablet) 5 mg PO Q6H PRN PRN Reason: Pain, Moderate (Pain Scale 4-6 Last Admin: 09/09/22 22:13 Dose: 5 mg Documented By: GIA Pharmacy Consult (Consult Rx Perform Med Rec) 1 each MISCELLANE ONCE PRN PRN Reason: Consult order Pyridoxine HCl (Pyridoxine Hcl (Vitamin B6) 50 Mg Tablet) 100 mg PO DAILY [facility] Last Admin: 09/10/22 07:58 Dose: 100 mg Documented By: DIEGO Sertraline HCl (Sertraline Hcl 100 Mg Tablet) 100 mg PO DAILY [facility] Last Admin: 09/10/22 07:58 Dose: 100 mg Documented By: DIEGO Sodium Chloride (0.9 % Sodium Chloride Flush 3 Ml Syringe) 3 ml IVFLUSH QSHIFT [facility] Last Admin: 09/10/22 07:59 Dose: Not Given Documented By: DIEGO Non-Admin Reason: IV Running Labs CBC & Chem 7: 09/10/22 07:05 09/10/22 07:05 Labs: Laboratory Results - last 24 hr 09/09/22 09/09/22 09/09/22 10:51 15:45 20:09 MCV MCH MCHC RDW Plt Count MPV Immature Gran % (Auto) Neut % (Auto) Lymph % (Auto) [place] % (Auto) Eos % (Auto) Baso % (Auto) Lymph # (Auto) [place] # (Auto) Eos # (Auto) Baso # (Auto) Abs Immat Gran (auto) Absolute Neuts (auto) Absolute Nucleated RBC Nucleated RBC % (auto) Anion Gap Estim Creat Clear Calc Estimated GFR POC Glucose 139 H 170 H 145 H Random Glucose Calcium Total Bilirubin AST ALT Alkaline Phosphatase Total Protein Albumin 09/10/22 09/10/22 09/10/22 07:05 07:05 07:18 MCV 80.9 MCH 24.2 L MCHC 30.0 L RDW 18.9 H Plt Count 502 H MPV 9.4 Immature Gran % (Auto) 1.1 H Neut % (Auto) 81.6 H Lymph % (Auto) 10.0 L [place] % (Auto) 6.2 Eos % (Auto) 0.8 Baso % (Auto) 0.3 Lymph # (Auto) 1.2 [place] # (Auto) 0.7 Eos # (Auto) 0.1 Baso # (Auto) 0.0 Abs Immat Gran (auto) 0.13 H Absolute Neuts (auto) 9.5 H Absolute Nucleated RBC 0.020 H Nucleated RBC % (auto) 0.2 Anion Gap 11 L Estim Creat Clear Calc 74.0 Estimated GFR > 60 POC Glucose 144 H Random Glucose 157 H Calcium 8.1 L Total Bilirubin 0.3 AST 21 ALT 25 Alkaline Phosphatase 524 H Total Protein 5.2 L Albumin 2.2 L Microbiology Microbiology Results: Microbiology 09/08/22 00:00 Urine Culture - Preliminary Urine Catheterized - Straight Catheter Gram negative jackelyn 09/08/22 17:15 Gram Stain - Final Liver Routine Culture - Preliminary Culture in progress. Anaerobic Culture - Preliminary Culture in progress. 09/08/22 16:30 Gram Stain - Final Kidney - Abscess Routine Culture - Preliminary Culture in progress. Anaerobic Culture - Preliminary Culture in progress. 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 Sepsis due to hepatic and right perirenal abscess s/p drainage continue zosyn follow up cultures ID eval copd with acute decopmensation and acute hypoxix respiratory failure wean o2 as tolerated bronchodilators DM insulin, pocs severe obesity weight loss, bariatric o/p hypertension-BP soft hold BP meds GERD continue PPI DVT prophylaxis- lovenox Full code reason for continued hospitalization:ongoing iv abx, awaiting cultures Quality Stroke Does the patient have a stroke diagnosis?: No VTE Prior VTE?: No VTE Risk Level:: Medical - moderate - high VTE Device Contraindication: N/A - Device Ordered VTE Drug Contraindication: Treatment Not Indicated
[2022-09-10] MEDS: Enoxaparin Sodium 40 MG/0.4 ML SYRINGE SUBCUT (09:39)
[2022-09-10 11:29] VITALS: BP 123/59; PULSE 73; RESP 16; TEMP 36.4; O2SAT 96
[2022-09-10 11:46] LABS: Glucose, Whole Blood 142 mg/dL (60-115)
[2022-09-10] MEDS: Nystatin Powder 15 GM BOTTLE 1 APPL TOPICAL ×3 (12:19→20:00)
[2022-09-10 15:06] VITALS: BP 113/67; PULSE 81; RESP 18; TEMP 37; O2SAT 98
[2022-09-10 15:34] LABS: Glucose, Whole Blood 176 mg/dL (60-115)
[2022-09-10] MEDS: Insulin Lispro 100 UNIT/ML 3 ML VIAL SUBCUT (15:52)
[2022-09-10] MEDS: oxyCODONE HCl Immed Release 5 MG TABLET PO (15:52)
[2022-09-10 19:25] VITALS: BP 146/63; PULSE 80; RESP 18; TEMP 37; O2SAT 96
[2022-09-10 19:37] LABS: Glucose, Whole Blood 148 mg/dL (60-115)
[2022-09-10] MEDS: Melatonin 3 MG TABLET PO (19:56)
[2022-09-10] MEDS: 0.9 % Sodium Chloride Flush 3 ML SYRINGE IVFLUSH (19:56)
[2022-09-10 23:35] VITALS: BP 113/66; PULSE 83; RESP 16; TEMP 36.9; O2SAT 98
[2022-09-11] MEDS: Piperacillin Sodium/Tazobactam 3.375 GM in 0.9 % Sodium Chloride 50 ML IV ×3 (00:26→12:04)
[2022-09-11 03:48] VITALS: BP 132/88; PULSE 78; RESP 17; TEMP 36.7; O2SAT 97
[2022-09-11] MEDS: oxyCODONE HCl Immed Release 5 MG TABLET PO ×3 (03:55→21:50)
[2022-09-11] MEDS: Omeprazole 40 MG CAPSULE.DR PO (05:55)
[2022-09-11 07:19] LABS: MANUAL DIFF FLAG NO
--- NOTE | 2022-09-11 07:21 | PM.PNGS ---
Subjective Subjective Date of Service: 09/11/22 Patient reports: no new complaints and feels better Interval history: The patient reports that she is feeling better. She was awoken from comfortable of sleep. Reports less abdominal/flank pain, no chest pain, difficulty breathing or shortness of breath. Physical Exam Vital Signs: Vital Signs: Last Vital Signs Temp 98.1 F 09/11/22 03:48 Pulse 78 09/11/22 03:48 Resp 17 09/11/22 03:48 BP 132/88 09/11/22 03:48 Pulse Ox 97 09/11/22 03:48 O2 Del Method 09/11/22 03:48 O2 Flow Rate 2 09/11/22 03:48 BMI result Body Mass Index 37.5 Sclera are anicteric Patient is nontoxic Abdomen is obese, soft and less tender Objective Data Active Medications Acetaminophen (Acetaminophen 325 Mg Tablet) 650 mg PO Q6H PRN PRN Reason: Pain, Mild (Pain Scale 1-3) Last Admin: 09/10/22 15:31 Dose: 650 mg Documented By: DIEGO Atorvastatin Calcium (Atorvastatin Calcium 80 Mg Tablet) 80 mg PO DAILY [facility] Last Admin: 09/10/22 07:58 Dose: 80 mg Documented By: DIEGO Dextrose (Dextrose 50 % 25 Gm/50 Ml Syringe) 25 gm IVPUSH Q15M PRN; Protocol PRN Reason: per Hypoglycemia Standing Ord. Enoxaparin Sodium (Enoxaparin Sodium 40 Mg/0.4 Ml Syringe) 40 mg SUBCUT Q24H [facility] Last Admin: 09/10/22 09:39 Dose: 40 mg Documented By: DIEGO Ergocalciferol (Ergocalciferol (Vitamin D2) 1,250 Mcg Capsule) 1,250 mcg PO SA [facility] Gabapentin (Gabapentin 100 Mg Capsule) 200 mg PO TID [facility] Last Admin: 09/10/22 19:56 Dose: 200 mg Documented By: CASTILM Glucose (Glucose Gel 15 Gm Gel..Gram.) 15 gm PO Q15M PRN; Protocol PRN Reason: per Hypoglycemia Standing Ord. Hydromorphone HCl (Hydromorphone Hcl 1 Mg/Ml Syringe) 0.25 mg IVPUSH Q4H PRN; Protocol PRN Reason: Pain, Severe (Pain Scale 7-10) Hydroxyzine HCl (Hydroxyzine Hcl 25 Mg Tablet) 25 mg PO BID@0900,1700 [facility] Last Admin: 09/10/22 18:22 Dose: 25 mg Documented By: DIEGO Piperacillin Sod/Tazobactam (Sod 3.375 gm/ Sodium Chloride) 50 mls @ 100 mls/hr IV Q6H [facility] Last Infusion: 09/11/22 06:38 Dose: 0 mls/hr Documented By: GIA Insulin Human Lispro (Insulin Lispro 100 Unit/Ml 3 Ml Vial) 0 unit SUBCUT QIDACHS [facility]; Protocol Last Admin: 09/10/22 20:00 Dose: Not Given Documented By: GIA Non-Admin Reason: No Insulin Coverage Melatonin (Melatonin 3 Mg Tablet) 3 mg PO BEDTIME [facility] Last Admin: 09/10/22 19:56 Dose: 3 mg Documented By: GIA Multivitamins/Vitamin C (Multivitamin Tablet) 1 tab PO DAILY [facility] Last Admin: 09/10/22 07:59 Dose: 1 tab Documented By: DIEGO Nystatin (Nystatin Powder 15 Gm Bottle) 1 appl TOPICAL TID [facility]; Protocol Last Admin: 09/10/22 20:00 Dose: 1 appl Documented By: GIA Omeprazole (Omeprazole 40 Mg Capsule.) 40 mg PO DAILY@0630 [facility] Last Admin: 09/11/22 05:55 Dose: 40 mg Documented By: GIA Ondansetron HCl (Ondansetron Hcl 4 Mg/2 Ml Vial) 4 mg IVPUSH Q8H PRN PRN Reason: Nausea and Vomiting Oxycodone HCl (Oxycodone Hcl Immed Release 5 Mg Tablet) 5 mg PO Q6H PRN PRN Reason: Pain, Moderate (Pain Scale 4-6 Last Admin: 09/11/22 03:55 Dose: 5 mg Documented By: GIA Pharmacy Consult (Consult Rx Perform Med Rec) 1 each MISCELLANE ONCE PRN PRN Reason: Consult order Pyridoxine HCl (Pyridoxine Hcl (Vitamin B6) 50 Mg Tablet) 100 mg PO DAILY [facility] Last Admin: 09/10/22 07:58 Dose: 100 mg Documented By: DIEGO Sertraline HCl (Sertraline Hcl 100 Mg Tablet) 100 mg PO DAILY [facility] Last Admin: 09/10/22 07:58 Dose: 100 mg Documented By: DIEGO Sodium Chloride (0.9 % Sodium Chloride Flush 3 Ml Syringe) 3 ml IVFLUSH QSHIFT [facility] Last Admin: 09/10/22 19:56 Dose: 3 ml Documented By: GIA Labs CBC & Chem 7: 09/10/22 07:05 09/10/22 07:05 Labs: Laboratory Results - last 24 hr 09/10/22 09/10/22 09/10/22 07:05 07:05 07:18 MCV 80.9 MCH 24.2 L MCHC 30.0 L RDW 18.9 H Plt Count 502 H MPV 9.4 Immature Gran % (Auto) 1.1 H Neut % (Auto) 81.6 H Lymph % (Auto) 10.0 L [place] % (Auto) 6.2 Eos % (Auto) 0.8 Baso % (Auto) 0.3 Lymph # (Auto) 1.2 [place] # (Auto) 0.7 Eos # (Auto) 0.1 Baso # (Auto) 0.0 Abs Immat Gran (auto) 0.13 H Absolute Neuts (auto) 9.5 H Absolute Nucleated RBC 0.020 H Nucleated RBC % (auto) 0.2 Anion Gap 11 L Estim Creat Clear Calc 74.0 Estimated GFR > 60 POC Glucose 144 H Random Glucose 157 H Calcium 8.1 L Total Bilirubin 0.3 AST 21 ALT 25 Alkaline Phosphatase 524 H Total Protein 5.2 L Albumin 2.2 L 09/10/22 09/10/22 09/10/22 11:27 15:08 19:17 MCV MCH MCHC RDW Plt Count MPV Immature Gran % (Auto) Neut % (Auto) Lymph % (Auto) [place] % (Auto) Eos % (Auto) Baso % (Auto) Lymph # (Auto) [place] # (Auto) Eos # (Auto) Baso # (Auto) Abs Immat Gran (auto) Absolute Neuts (auto) Absolute Nucleated RBC Nucleated RBC % (auto) Anion Gap Estim Creat Clear Calc Estimated GFR POC Glucose 142 H 176 H 148 H Random Glucose Calcium Total Bilirubin AST ALT Alkaline Phosphatase Total Protein Albumin Today's labs currently pending Microbiology Microbiology Results: Microbiology 09/09/22 18:37 Blood Culture - Preliminary Blood - Venous No growth after 24 hours. 09/09/22 18:37 Blood Culture - Preliminary Blood - Venous No growth after 24 hours. 09/08/22 16:30 Gram Stain - Final Kidney - Abscess Routine Culture - Preliminary Gram negative jackelyn Anaerobic Culture - Preliminary Culture in progress. 09/08/22 17:15 Gram Stain - Final Liver Routine Culture - Preliminary Gram negative jackelyn Anaerobic Culture - Preliminary Culture in progress. 09/08/22 00:00 Urine Culture - Final Urine Catheterized - Straight Catheter Serratia marcescens Procedures Date of Service Date of Service: 09/11/22 Progress Note: A&P Assessment and plan (1) Hepatic abscess: Status: Acute (2) Renal abscess: Status: Acute (3) Sepsis: Status: Acute (4) Gallstones: Status: Acute (5) Splenomegaly: Status: Acute (6) Hepatomegaly: Status: Acute (7) Type 2 diabetes mellitus with unspecified complications: Status: Acute (8) Essential hypertension: Status: Acute Plan Await Urology input No obvious acute surgical pathology; please call if there are clinical changes/questions. Time Spent With Patient Time: Total time spent is greater than 50% in coordination of care (as documented) at patient's floor/unit and/or counseling patient: Quality Stroke Does the patient have a stroke diagnosis?: No VTE Prior VTE?: No VTE Risk Level:: Medical - moderate - high VTE Device Contraindication: N/A - Device Ordered VTE Drug Contraindication: Treatment Not Indicated
[2022-09-11 07:22] LABS: Basophils Percent Auto 0.3 % (0-2); Eosinophils Absolute Auto 0.2 X10*3/uL (0.0-0.4); Eosinophils Percent Auto 1.8 % (0-4); Hemoglobin 7.7 g/dl (12.0-16.0); Imm Gran Abs Auto 0.14 X10*3/uL (0.00-0.03); Imm Gran Pct Auto 1.4 % (0.0-0.4); Lymphocytes Absolute Auto 1.2 X10*3/uL (1.2-4.9); Lymphocytes Percent Auto 11.7 % (20-40); Mean Corpuscular HGB Conc 29.6 g/dl (31.0-35.0); Mean Platelet Volume 9.7 fL (9.4-12.3); Monocytes Absolute Auto 0.6 X10*3/uL (0.1-1.2); Neutrophils Absolute Auto 8.1 x10*3/uL (2.0-8.3); Neutrophils Percent Auto 78.8 % (45-73); Platelet Count 597 X10*3/uL (160-400); Red Blood Count 3.21 X10*6/uL (4.20-5.50); Red Cell Distribution Width 18.9 % (11.0-16.0); White Blood Count 10.3 X10*3/uL (4.8-10.8)
[2022-09-11 07:23] LABS: Hematocrit 25.5 % (37.0-47.0); Hemoglobin 7.7 g/dl (12.0-16.0); Mean Corpuscular HGB Conc 30.2 g/dl (31.0-35.0); Mean Corpuscular Hemoglobin 24.4 pg (27.0-33.0); Mean Corpuscular Volume 80.7 fL (80.0-98.0); Mean Platelet Volume 9.6 fL (9.4-12.3); Platelet Count 602 X10*3/uL (160-400); Red Blood Count 3.16 X10*6/uL (4.20-5.50); Red Cell Distribution Width 19.1 % (11.0-16.0); White Blood Count 10.5 X10*3/uL (4.8-10.8)
[2022-09-11] MEDS: Sertraline HCL 100 MG TABLET PO (07:25)
[2022-09-11] MEDS: Enoxaparin Sodium 40 MG/0.4 ML SYRINGE SUBCUT (07:25)
[2022-09-11] MEDS: Pyridoxine HCl (Vitamin B6) 50 MG TABLET 100 MG PO (07:25)
[2022-09-11] MEDS: hydrOXYzine HCL 25 MG TABLET PO ×2 (07:25→15:45)
[2022-09-11] MEDS: Atorvastatin Calcium 80 MG TABLET PO (07:25)
[2022-09-11] MEDS: Multivitamin TABLET 1 TAB PO (07:25)
[2022-09-11] MEDS: Gabapentin 100 MG CAPSULE 200 MG PO ×3 (07:25→20:24)
[2022-09-11] MEDS: Nystatin Powder 15 GM BOTTLE 1 APPL TOPICAL ×2 (07:26→20:24)
[2022-09-11] MEDS: 0.9 % Sodium Chloride Flush 3 ML SYRINGE IVFLUSH ×3 (07:26→20:24)
[2022-09-11 07:31] VITALS: BP 124/76; PULSE 71; RESP 17; TEMP 36.8; O2SAT 95
[2022-09-11 07:38] LABS: Glucose, Whole Blood 137 mg/dL (60-115)
[2022-09-11 07:51] LABS: Alanine Aminotransferase 24 U/L (0-31); Albumin Level 2.2 g/dL (3.5-5.0); Alkaline Phosphatase 456 U/L (39-117); Anion Gap 11 (12-20); Aspartate Amino Transferase 19 U/L (5-31); Bilirubin Total 0.3 mg/dL (0.0-1.0); Blood Urea Nitrogen 11 mg/dL (9-16); Calcium 8.2 mg/dL (8.4-10.2); Carbon Dioxide 23 mmol/L (22-29); Chloride 109 mmol/L (96-108); Creatinine Clr Calc Pharmacy 68.3; Estimated Glomerular Filt Rate 55; Glucose Fasting 138 mg/dL (60-99); Glucose Random 137 mg/dL (60-115); Potassium 4.1 mmol/L (3.3-5.1); Sodium 139 mmol/L (135-145); Total Protein 5.2 g/dL (6.5-8.0)
--- NOTE | 2022-09-11 09:19 | HO.PM.IMPN ---
Subjective Subjective Date of Service: 09/11/22 Interval History: cc: right flnak pain interval history:improving Cardiovascular Cardiovascular: Reports no additional cardiovascular complaints Respiratory Respiratory: Reports no additional respiratory complaints Physical Exam Vital Signs: Vital Signs: Last Vital Signs Temp 98.3 F 09/11/22 07:31 Pulse 71 09/11/22 07:31 Resp 17 09/11/22 07:31 BP 124/76 09/11/22 07:31 Pulse Ox 95 09/11/22 07:31 O2 Del Method 09/11/22 07:31 O2 Flow Rate 2 09/11/22 03:48 BMI result Body Mass Index 37.5 General: AO X 3, no acute distress Resp: CTA bilateral, no accessory muscles used CVS: S1,S2,RRR GI: soft, non tender, non distended Neuro: motor grossly intact, alert Psych: appropriate affect, appropriate insight Objective Data Active Medications Acetaminophen (Acetaminophen 325 Mg Tablet) 650 mg PO Q6H PRN PRN Reason: Pain, Mild (Pain Scale 1-3) Last Admin: 09/10/22 15:31 Dose: 650 mg Documented By: DIEGO Atorvastatin Calcium (Atorvastatin Calcium 80 Mg Tablet) 80 mg PO DAILY [facility] Last Admin: 09/11/22 07:25 Dose: 80 mg Documented By: DIEGO Dextrose (Dextrose 50 % 25 Gm/50 Ml Syringe) 25 gm IVPUSH Q15M PRN; Protocol PRN Reason: per Hypoglycemia Standing Ord. Enoxaparin Sodium (Enoxaparin Sodium 40 Mg/0.4 Ml Syringe) 40 mg SUBCUT Q24H [facility] Last Admin: 09/11/22 07:25 Dose: 40 mg Documented By: DIEGO Ergocalciferol (Ergocalciferol (Vitamin D2) 1,250 Mcg Capsule) 1,250 mcg PO SA [facility] Gabapentin (Gabapentin 100 Mg Capsule) 200 mg PO TID [facility] Last Admin: 09/11/22 07:25 Dose: 200 mg Documented By: DIEGO Glucose (Glucose Gel 15 Gm Gel..Gram.) 15 gm PO Q15M PRN; Protocol PRN Reason: per Hypoglycemia Standing Ord. Hydromorphone HCl (Hydromorphone Hcl 1 Mg/Ml Syringe) 0.25 mg IVPUSH Q4H PRN; Protocol PRN Reason: Pain, Severe (Pain Scale 7-10) Hydroxyzine HCl (Hydroxyzine Hcl 25 Mg Tablet) 25 mg PO BID@0900,1700 [facility] Last Admin: 09/11/22 07:25 Dose: 25 mg Documented By: DIEGO Piperacillin Sod/Tazobactam (Sod 3.375 gm/ Sodium Chloride) 50 mls @ 100 mls/hr IV Q6H [facility] Last Infusion: 09/11/22 06:38 Dose: 0 mls/hr Documented By: GIA Insulin Human Lispro (Insulin Lispro 100 Unit/Ml 3 Ml Vial) 0 unit SUBCUT QIDACHS [facility]; Protocol Last Admin: 09/11/22 07:32 Dose: Not Given Documented By: DIEGO Non-Admin Reason: No Insulin Coverage Melatonin (Melatonin 3 Mg Tablet) 3 mg PO BEDTIME [facility] Last Admin: 09/10/22 19:56 Dose: 3 mg Documented By: GIA Multivitamins/Vitamin C (Multivitamin Tablet) 1 tab PO DAILY [facility] Last Admin: 09/11/22 07:25 Dose: 1 tab Documented By: DIEGO Nystatin (Nystatin Powder 15 Gm Bottle) 1 appl TOPICAL TID [facility]; Protocol Last Admin: 09/11/22 07:26 Dose: 1 appl Documented By: DIEGO Omeprazole (Omeprazole 40 Mg Capsule.Dr) 40 mg PO DAILY@0630 [facility] Last Admin: 09/11/22 05:55 Dose: 40 mg Documented By: GIA Ondansetron HCl (Ondansetron Hcl 4 Mg/2 Ml Vial) 4 mg IVPUSH Q8H PRN PRN Reason: Nausea and Vomiting Oxycodone HCl (Oxycodone Hcl Immed Release 5 Mg Tablet) 5 mg PO Q6H PRN PRN Reason: Pain, Moderate (Pain Scale 4-6 Last Admin: 09/11/22 03:55 Dose: 5 mg Documented By: IGA Pharmacy Consult (Consult Rx Perform Med Rec) 1 each MISCELLANE ONCE PRN PRN Reason: Consult order Pyridoxine HCl (Pyridoxine Hcl (Vitamin B6) 50 Mg Tablet) 100 mg PO DAILY [facility] Last Admin: 09/11/22 07:25 Dose: 100 mg Documented By: DIEGO Sertraline HCl (Sertraline Hcl 100 Mg Tablet) 100 mg PO DAILY [facility] Last Admin: 09/11/22 07:25 Dose: 100 mg Documented By: DIEGO Sodium Chloride (0.9 % Sodium Chloride Flush 3 Ml Syringe) 3 ml IVFLUSH QSHIFT [facility] Last Admin: 09/11/22 07:26 Dose: 3 ml Documented By: DIEGO Labs CBC & Chem 7: 09/11/22 06:57 09/11/22 06:57 Labs: Laboratory Results - last 24 hr 09/10/22 09/10/22 09/10/22 11:27 15:08 19:17 MCV MCH MCHC RDW Plt Count MPV Immature Gran % (Auto) Neut % (Auto) Lymph % (Auto) [place] % (Auto) Eos % (Auto) Baso % (Auto) Lymph # (Auto) [place] # (Auto) Eos # (Auto) Baso # (Auto) Abs Immat Gran (auto) Absolute Neuts (auto) Absolute Nucleated RBC Nucleated RBC % (auto) Anion Gap Estim Creat Clear Calc Estimated GFR POC Glucose 142 H 176 H 148 H Random Glucose Fasting Glucose Calcium Total Bilirubin AST ALT Alkaline Phosphatase Total Protein Albumin 09/11/22 09/11/22 09/11/22 06:57 06:57 06:57 MCV 81.0 80.7 MCH 24.0 L 24.4 L MCHC 29.6 L 30.2 L RDW 18.9 H 19.1 H Plt Count 597 H 602 H MPV 9.7 9.6 Immature Gran % (Auto) 1.4 H Neut % (Auto) 78.8 H Lymph % (Auto) 11.7 L [place] % (Auto) 6.0 Eos % (Auto) 1.8 Baso % (Auto) 0.3 Lymph # (Auto) 1.2 [place] # (Auto) 0.6 Eos # (Auto) 0.2 Baso # (Auto) 0.0 Abs Immat Gran (auto) 0.14 H Absolute Neuts (auto) 8.1 Absolute Nucleated RBC 0.000 0.000 Nucleated RBC % (auto) 0.0 0.0 Anion Gap 11 L Estim Creat Clear Calc 68.3 Estimated GFR 55 POC Glucose Random Glucose 137 H Fasting Glucose 138 H Calcium 8.2 L Total Bilirubin 0.3 AST 19 ALT 24 Alkaline Phosphatase 456 H Total Protein 5.2 L Albumin 2.2 L 09/11/22 07:29 MCV MCH MCHC RDW Plt Count MPV Immature Gran % (Auto) Neut % (Auto) Lymph % (Auto) [place] % (Auto) Eos % (Auto) Baso % (Auto) Lymph # (Auto) [place] # (Auto) Eos # (Auto) Baso # (Auto) Abs Immat Gran (auto) Absolute Neuts (auto) Absolute Nucleated RBC Nucleated RBC % (auto) Anion Gap Estim Creat Clear Calc Estimated GFR POC Glucose 137 H Random Glucose Fasting Glucose Calcium Total Bilirubin AST ALT Alkaline Phosphatase Total Protein Albumin Microbiology Microbiology Results: Microbiology 09/08/22 17:15 Gram Stain - Final Liver Routine Culture - Preliminary Gram negative jackelyn Anaerobic Culture - Preliminary Culture in progress. 09/09/22 18:37 Blood Culture - Preliminary Blood - Venous No growth after 24 hours. 09/09/22 18:37 Blood Culture - Preliminary Blood - Venous No growth after 24 hours. 09/08/22 16:30 Gram Stain - Final Kidney - Abscess Routine Culture - Preliminary Gram negative jackelyn Anaerobic Culture - Preliminary Culture in progress. 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 Sepsis due to hepatic and right perirenal abscess s/p drainage continue zosyn follow up cultures - blood negative so far, GNR in fluid ID eval copd with acute decopmensation and acute hypoxix respiratory failure wean o2 as tolerated bronchodilators DM insulin, pocs severe obesity weight loss, bariatric o/p hypertension-BP soft hold BP meds GERD continue PPI DVT prophylaxis- lovenox Full code reason for continued hospitalization:ongoing iv abx, awaiting cultures Quality Stroke Does the patient have a stroke diagnosis?: No VTE Prior VTE?: No VTE Risk Level:: Medical - moderate - high VTE Device Contraindication: N/A - Device Ordered VTE Drug Contraindication: Treatment Not Indicated
[2022-09-11 11:09] VITALS: BP 145/69; PULSE 86; RESP 18; TEMP 37.4; O2SAT 93
[2022-09-11 11:14] LABS: Glucose, Whole Blood 151 mg/dL (60-115)
[2022-09-11] MEDS: Insulin Lispro 100 UNIT/ML 3 ML VIAL SUBCUT ×2 (12:04→16:50)
--- NOTE | 2022-09-11 12:24 | MHC.CM.PN ---
GERTRUDE SIMPSON AND THELMA [place]ESE [place] UPDATED IN [facility].
--- NOTE | 2022-09-11 13:26 | W.PM.IDCN ---
History of Present Illness Data of Consult Service Date: 09/11/22 Requesting physician: Vignesh Maki Primary Care Provider: Rancho Duarte MD HPI Reason for consult: flank pain She presents with 7/10 right flank pain. She has symptoms for a day and no nausea or vomiting but profuse diarrhea. No one else is ill. She has CT nephrolithiasis and patient has h/o ESWL [place] and calcium oxalate nephrollthiasis. 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 Vitamin D deficiency Family History Family History Father Alzheimer's dementia Family history: reviewed and not pertinent Surgical History Surgical History History of arthroscopy of left knee (~12/2011) History of breast lump/mass excision (~03/2017) History of heart artery stent (~09/2015) History of surgery History of surgery Hx of cystoscopy Social History Social History Household Members: Other Household Members Other:: Roommate Housing: House Do you presently have visiting nurse or other home services: Yes Alcohol intake: former Patient Tobacco Use Status: Current everyday Tobacco user Tobacco use type: Cigarette Cigarettes Per Day: 18 Years Smoked: 30 +/- e-Cigarette/Vaping Use: Former Use Second Hand Smoke Exposure: Yes Substance Use Type: Marijuana Advance Directives Date on File: 07/23/22 service: No Current occupational status: disabled Cognitive needs: No Hearing needs: No Vision needs: Yes Meds Allergies Allergy/AdvReac Type Severity Reaction Status Date / Time No Known Allergies Allergy Verified 07/31/22 13:00 Active Medications: Current Medications Acetaminophen (Acetaminophen 325 Mg Tablet) 650 mg PO Q6H PRN PRN Reason: Pain, Mild (Pain Scale 1-3) Last Admin: 09/10/22 15:31 Dose: 650 mg Atorvastatin Calcium (Atorvastatin Calcium 80 Mg Tablet) 80 mg PO DAILY [facility] Last Admin: 09/11/22 07:25 Dose: 80 mg Dextrose (Dextrose 50 % 25 Gm/50 Ml Syringe) 25 gm IVPUSH Q15M PRN; Protocol PRN Reason: per Hypoglycemia Standing Ord. Enoxaparin Sodium (Enoxaparin Sodium 40 Mg/0.4 Ml Syringe) 40 mg SUBCUT Q24H [facility] Last Admin: 09/11/22 07:25 Dose: 40 mg Ergocalciferol (Ergocalciferol (Vitamin D2) 1,250 Mcg Capsule) 1,250 mcg PO SA [facility] Gabapentin (Gabapentin 100 Mg Capsule) 200 mg PO TID [facility] Last Admin: 09/11/22 07:25 Dose: 200 mg Glucose (Glucose Gel 15 Gm Gel..Gram.) 15 gm PO Q15M PRN; Protocol PRN Reason: per Hypoglycemia Standing Ord. Hydromorphone HCl (Hydromorphone Hcl 1 Mg/Ml Syringe) 0.25 mg IVPUSH Q4H PRN; Protocol PRN Reason: Pain, Severe (Pain Scale 7-10) Hydroxyzine HCl (Hydroxyzine Hcl 25 Mg Tablet) 25 mg PO BID@0900,1700 [facility] Last Admin: 09/11/22 07:25 Dose: 25 mg Levofloxacin (Levaquin) 750 mg in 150 mls @ 100 mls/hr IV Q24H [facility] Insulin Human Lispro (Insulin Lispro 100 Unit/Ml 3 Ml Vial) 0 unit SUBCUT QIDACHS [facility]; Protocol Last Admin: 09/11/22 12:04 Dose: 2 unit Melatonin (Melatonin 3 Mg Tablet) 3 mg PO BEDTIME [facility] Last Admin: 09/10/22 19:56 Dose: 3 mg Multivitamins/Vitamin C (Multivitamin Tablet) 1 tab PO DAILY [facility] Last Admin: 09/11/22 07:25 Dose: 1 tab Nystatin (Nystatin Powder 15 Gm Bottle) 1 appl TOPICAL TID [facility]; Protocol Last Admin: 09/11/22 07:26 Dose: 1 appl Omeprazole (Omeprazole 40 Mg Capsule.Dr) 40 mg PO DAILY@0630 [facility] Last Admin: 09/11/22 05:55 Dose: 40 mg Ondansetron HCl (Ondansetron Hcl 4 Mg/2 Ml Vial) 4 mg IVPUSH Q8H PRN PRN Reason: Nausea and Vomiting Oxycodone HCl (Oxycodone Hcl Immed Release 5 Mg Tablet) 5 mg PO Q6H PRN PRN Reason: Pain, Moderate (Pain Scale 4-6 Last Admin: 09/11/22 12:09 Dose: 5 mg Pharmacy Consult (Consult Rx Perform Med Rec) 1 each MISCELLANE ONCE PRN PRN Reason: Consult order Pyridoxine HCl (Pyridoxine Hcl (Vitamin B6) 50 Mg Tablet) 100 mg PO DAILY [facility] Last Admin: 09/11/22 07:25 Dose: 100 mg Sertraline HCl (Sertraline Hcl 100 Mg Tablet) 100 mg PO DAILY [facility] Last Admin: 09/11/22 07:25 Dose: 100 mg Sodium Chloride (0.9 % Sodium Chloride Flush 3 Ml Syringe) 3 ml IVFLUSH QSHIFT [facility] Last Admin: 09/11/22 07:26 Dose: 3 ml Home Medications Medication Instructions Recorded Confirmed Last Taken Type aspirin 81 mg tablet,delayed 81 mg PO DAILY 09/18/20 09/08/22 09/07/22 History release melatonin 3 mg tablet 3 mg PO BEDTIME 03/17/21 09/08/22 09/07/22 History multivitamin with minerals-ferrous 1 tab PO DAILY 03/17/21 09/08/22 09/07/22 History sulfate 4.5 mg iron tablet (One Daily Multivitamins with Minerals) hydroxyzine pamoate 25 mg capsule 25 mg PO BID@0900,1700 05/01/22 09/08/22 09/07/22 History pen needle, diabetic 32 gauge x #50 ea 06/16/22 07/31/22 Unknown History (BD Ultra-Fine Gi Pen Needle) ergocalciferol (vitamin D2) 1,250 1,250 mcg PO SA 07/23/22 09/08/22 09/07/22 History mcg (50,000 unit) capsule (Vitamin D2) insulin aspart U-100 100 unit/mL 22 unit subcut DAILY 07/23/22 09/08/22 09/07/22 History (3 mL) subcutaneous pen (Novolog Flexpen U-100 Insulin aspart) metformin 500 mg tablet 500 mg PO DAILY@1200 07/23/22 09/08/22 09/07/22 History Physical Exam Vital Signs: Vital Signs: Last Vital Signs Temp 99.4 F 09/11/22 11:09 Pulse 86 09/11/22 11:09 Resp 18 09/11/22 11:09 BP 145/69 H 09/11/22 11:09 Pulse Ox 93 09/11/22 11:09 O2 Del Method 09/11/22 11:09 O2 Flow Rate 2 09/11/22 03:48 BMI result Body Mass Index 37.5 Const: General: cooperative HEENT: Head: Yes normal to inspection Face and sinus: Yes normal facial exam Mouth: Normal oral and palatal mucosa present Teeth and gingiva: dentition normal Eyes: General: appearance normal, both eyes and all related structures Pupils: Equal, round and reactive pupils present Resp: Effort & Inspection: normal respiratory effort Cardio: Rate: regular rate Rhythm: regular rhythm GI: Palpation (GI): Soft to palpation and Tenderness to palpation present (GI) (right flank) : General: Yes no CVA tenderness Back/Spine/Pelvis: Back: no CVA tenderness Skin: General skin exam: no rashes or lesions noted Neuro: General: moves all extremities Cranial nerves: Yes Equal, round and reactive pupils present Extrem: General: Yes normal to inspection Psych: Appearance: grossly normal Results Labs CBC & Chem 7: 09/11/22 06:57 09/11/22 06:57 Labs: Short CBC 09/11/22 09/11/22 Range/Units 06:57 06:57 WBC 10.3 10.5 (4.8-10.8) X10*3/uL Hgb 7.7 L 7.7 L (12.0-16.0) g/dl Hct 26.0 L 25.5 L (37.0-47.0) % Plt Count 597 H 602 H (160-400) X10*3/uL BMP 09/11/22 06:57 Sodium 139 Potassium 4.1 Chloride 109 H Carbon Dioxide 23 BUN 11 Creatinine 1.04 Calcium 8.2 L Liver Function 09/11/22 Range/Units 06:57 Total Bilirubin 0.3 (0.0-1.0) mg/dL AST 19 (5-31) U/L ALT 24 (0-31) U/L Alkaline Phosphatase 456 H (39-117) U/L Albumin 2.2 L (3.5-5.0) g/dL Microbiology Microbiology Results: Microbiology 09/08/22 16:30 Kidney - Abscess Gram Stain - Final 09/08/22 16:30 Kidney - Abscess Routine Culture - Final Serratia marcescens 09/08/22 16:30 Kidney - Abscess Anaerobic Culture - Preliminary Culture in progress. 09/08/22 17:15 Liver Gram Stain - Final 09/08/22 17:15 Liver Routine Culture - Final Serratia marcescens 09/08/22 17:15 Liver Anaerobic Culture - Preliminary Culture in progress. 09/09/22 18:37 Blood - Venous Blood Culture - Preliminary No growth after 24 hours. 09/09/22 18:37 Blood - Venous Blood Culture - Preliminary No growth after 24 hours. 09/08/22 00:00 Urine Catheterized - Straight Catheter Urine Culture - Final Serratia marcescens Assessment and Plan (1) Hepatic abscess: Status: Acute Serratia cause of abscess with ability to infect many organs She has no known allergies There is probably no colon or biliary duct source recognized at this time (2) Renal abscess: Status: Acute Plan Follow Urology and GI investigate colon,biliary tree if needed Levaquin 750 mg daily for 14 days
[2022-09-11] MEDS: levoFLOXacin/D5W 750 MG/150 ML PIGGYBACK 100 MG IV (13:28)
[2022-09-11 15:09] VITALS: BP 140/69; PULSE 95; RESP 18; TEMP 37.2; O2SAT 92
[2022-09-11] MEDS: Acetaminophen 325 MG TABLET 650 MG PO (15:44)
[2022-09-11 16:01] LABS: Glucose, Whole Blood 152 mg/dL (60-115)
[2022-09-11 18:50] VITALS: BP 159/82; PULSE 83; RESP 18; TEMP 37.1; O2SAT 92
[2022-09-11 19:36] LABS: Glucose, Whole Blood 127 mg/dL (60-115)
[2022-09-11] MEDS: Melatonin 3 MG TABLET PO (20:24)
[2022-09-11 23:46] VITALS: BP 144/70; PULSE 83; RESP 18; TEMP 36.1; O2SAT 93
[2022-09-12 03:41] VITALS: BP 140/80; PULSE 78; RESP 18; TEMP 36.2; O2SAT 92
[2022-09-12] MEDS: Omeprazole 40 MG CAPSULE.DR PO (05:39)
[2022-09-12 05:58] LABS: Hematocrit 25.7 % (37.0-47.0); Mean Corpuscular HGB Conc 31.1 g/dl (31.0-35.0); Mean Corpuscular Hemoglobin 24.7 pg (27.0-33.0); Mean Corpuscular Volume 79.3 fL (80.0-98.0); Mean Platelet Volume 9.7 fL (9.4-12.3); Platelet Count 675 X10*3/uL (160-400); Red Blood Count 3.24 X10*6/uL (4.20-5.50); Red Cell Distribution Width 19.4 % (11.0-16.0); White Blood Count 12.3 X10*3/uL (4.8-10.8)
[2022-09-12 06:11] LABS: Anion Gap 12 (12-20); Blood Urea Nitrogen 9 mg/dL (9-16); Calcium 8.3 mg/dL (8.4-10.2); Carbon Dioxide 25 mmol/L (22-29); Chloride 107 mmol/L (96-108); Creatinine Clr Calc Pharmacy 82.5; Estimated Glomerular Filt Rate > 60; Glucose Fasting 120 mg/dL (60-99); Potassium 4.3 mmol/L (3.3-5.1); Sodium 140 mmol/L (135-145)
[2022-09-12 07:25] VITALS: BP 155/84; PULSE 84; RESP 18; TEMP 36.1; O2SAT 93
[2022-09-12] MEDS: oxyCODONE HCl Immed Release 5 MG TABLET PO ×3 (07:30→19:24)
[2022-09-12 07:35] LABS: Glucose, Whole Blood 132 mg/dL (60-115)
--- NOTE | 2022-09-12 10:59 | HO.PM.IMPN ---
Subjective Subjective Date of Service: 09/12/22 Interval History: cc: right flnak pain interval history:improving Cardiovascular Cardiovascular: Reports no additional cardiovascular complaints Respiratory Respiratory: Reports no additional respiratory complaints Physical Exam Vital Signs: Vital Signs: Last Vital Signs Temp 97.0 F 09/12/22 07:25 Pulse 84 09/12/22 07:25 Resp 18 09/12/22 07:25 BP 155/84 H 09/12/22 07:25 Pulse Ox 93 09/12/22 07:25 O2 Del Method 09/12/22 07:25 O2 Flow Rate 2 09/11/22 03:48 BMI result Body Mass Index 37.5 Const: General: cooperative HEENT: Head: Yes normal to inspection Face and sinus: Yes normal facial exam Mouth: Normal oral and palatal mucosa present Teeth and gingiva: dentition normal Eyes: General: appearance normal, both eyes and all related structures Pupils: Equal, round and reactive pupils present Resp: Effort & Inspection: normal respiratory effort Cardio: Rate: regular rate Rhythm: regular rhythm GI: Palpation (GI): Soft to palpation and Tenderness to palpation present (GI) (right flank) : General: Yes no CVA tenderness Back/Spine/Pelvis: Back: no CVA tenderness Skin: General skin exam: no rashes or lesions noted Neuro: General: moves all extremities Cranial nerves: Yes Equal, round and reactive pupils present Extrem: General: Yes normal to inspection Psych: Appearance: grossly normal Objective Data Active Medications Acetaminophen (Acetaminophen 325 Mg Tablet) 650 mg PO Q6H PRN PRN Reason: Pain, Mild (Pain Scale 1-3) Last Admin: 09/11/22 15:44 Dose: 650 mg Documented By: DIEGO Atorvastatin Calcium (Atorvastatin Calcium 80 Mg Tablet) 80 mg PO DAILY [facility] Last Admin: 09/11/22 07:25 Dose: 80 mg Documented By: DIEGO Dextrose (Dextrose 50 % 25 Gm/50 Ml Syringe) 25 gm IVPUSH Q15M PRN; Protocol PRN Reason: per Hypoglycemia Standing Ord. Enoxaparin Sodium (Enoxaparin Sodium 40 Mg/0.4 Ml Syringe) 40 mg SUBCUT Q24H [facility] Last Admin: 09/11/22 07:25 Dose: 40 mg Documented By: DIEGO Ergocalciferol (Ergocalciferol (Vitamin D2) 1,250 Mcg Capsule) 1,250 mcg PO SA [facility] Gabapentin (Gabapentin 100 Mg Capsule) 200 mg PO TID [facility] Last Admin: 09/11/22 20:24 Dose: 200 mg Documented By: FRANKIE Glucose (Glucose Gel 15 Gm Gel..Gram.) 15 gm PO Q15M PRN; Protocol PRN Reason: per Hypoglycemia Standing Ord. Hydromorphone HCl (Hydromorphone Hcl 1 Mg/Ml Syringe) 0.25 mg IVPUSH Q4H PRN; Protocol PRN Reason: Pain, Severe (Pain Scale 7-10) Hydroxyzine HCl (Hydroxyzine Hcl 25 Mg Tablet) 25 mg PO BID@0900,1700 [facility] Last Admin: 09/11/22 15:45 Dose: 25 mg Documented By: DIEGO Levofloxacin (Levaquin) 750 mg in 150 mls @ 100 mls/hr IV Q24H [facility] Last Infusion: 09/11/22 15:49 Dose: 0 mls/hr Documented By: DIEGO Insulin Human Lispro (Insulin Lispro 100 Unit/Ml 3 Ml Vial) 0 unit SUBCUT QIDACHS [facility]; Protocol Last Admin: 09/12/22 07:39 Dose: Not Given Documented By: ANNA Non-Admin Reason: No Insulin Coverage Melatonin (Melatonin 3 Mg Tablet) 3 mg PO BEDTIME [facility] Last Admin: 09/11/22 20:24 Dose: 3 mg Documented By: FRANKIE Multivitamins/Vitamin C (Multivitamin Tablet) 1 tab PO DAILY [facility] Last Admin: 09/11/22 07:25 Dose: 1 tab Documented By: DIEGO Nystatin (Nystatin Powder 15 Gm Bottle) 1 appl TOPICAL TID [facility]; Protocol Last Admin: 09/11/22 20:24 Dose: 1 appl Documented By: FRANKIE Omeprazole (Omeprazole 40 Mg Capsule.) 40 mg PO DAILY@0630 [facility] Last Admin: 09/12/22 05:39 Dose: 40 mg Documented By: FRANKIE Ondansetron HCl (Ondansetron Hcl 4 Mg/2 Ml Vial) 4 mg IVPUSH Q8H PRN PRN Reason: Nausea and Vomiting Oxycodone HCl (Oxycodone Hcl Immed Release 5 Mg Tablet) 5 mg PO Q6H PRN PRN Reason: Pain, Moderate (Pain Scale 4-6 Last Admin: 09/12/22 07:30 Dose: 5 mg Documented By: LUCY Pharmacy Consult (Consult Rx Perform Med Rec) 1 each MISCELLANE ONCE PRN PRN Reason: Consult order Pyridoxine HCl (Pyridoxine Hcl (Vitamin B6) 50 Mg Tablet) 100 mg PO DAILY [facility] Last Admin: 09/11/22 07:25 Dose: 100 mg Documented By: DIEGO Sertraline HCl (Sertraline Hcl 100 Mg Tablet) 100 mg PO DAILY [facility] Last Admin: 09/11/22 07:25 Dose: 100 mg Documented By: DIEGO Sodium Chloride (0.9 % Sodium Chloride Flush 3 Ml Syringe) 3 ml IVFLUSH QSHIFT [facility] Last Admin: 09/11/22 20:24 Dose: 3 ml Documented By: FRANKIE Labs CBC & Chem 7: 09/12/22 04:58 09/12/22 04:58 Labs: Laboratory Results - last 24 hr 09/11/22 09/11/22 09/11/22 11:07 15:12 18:57 MCV MCH MCHC RDW Plt Count MPV Absolute Nucleated RBC Nucleated RBC % (auto) Anion Gap Estim Creat Clear Calc Estimated GFR POC Glucose 151 H 152 H 127 H Fasting Glucose Calcium 09/12/22 09/12/22 09/12/22 04:58 04:58 07:28 MCV 79.3 L MCH 24.7 L MCHC 31.1 RDW 19.4 H Plt Count 675 H MPV 9.7 Absolute Nucleated RBC 0.000 Nucleated RBC % (auto) 0.0 Anion Gap 12 Estim Creat Clear Calc 82.5 Estimated GFR > 60 POC Glucose 132 H Fasting Glucose 120 H Calcium 8.3 L Microbiology Microbiology Results: Microbiology 09/09/22 18:37 Blood Culture - Preliminary Blood - Venous No growth after 48 hours. 09/09/22 18:37 Blood Culture - Preliminary Blood - Venous No growth after 48 hours. 09/08/22 16:30 Gram Stain - Final Kidney - Abscess Routine Culture - Final Serratia marcescens Anaerobic Culture - Preliminary Culture in progress. 09/08/22 17:15 Gram Stain - Final Liver Routine Culture - Final Serratia marcescens Anaerobic Culture - Preliminary Culture in progress. 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 Sepsis due to hepatic and right perirenal abscess s/p drainage cultures growing serratia ID appreciated - 2 weeks levaquin follow up copd with acute decopmensation and acute hypoxix respiratory failure wean o2 as tolerated bronchodilators DM insulin, pocs severe obesity weight loss, bariatric o/p hypertension-BP soft hold BP meds GERD continue PPI DVT prophylaxis- lovenox Full code reason for continued hospitalization:ongoing iv abx, awaiting eval Quality Stroke Does the patient have a stroke diagnosis?: No VTE Prior VTE?: No VTE Risk Level:: Medical - moderate - high VTE Device Contraindication: N/A - Device Ordered VTE Drug Contraindication: Treatment Not Indicated
[2022-09-12] MEDS: Enoxaparin Sodium 40 MG/0.4 ML SYRINGE SUBCUT (11:00)
[2022-09-12] MEDS: Gabapentin 100 MG CAPSULE 200 MG PO ×3 (11:00→20:14)
[2022-09-12] MEDS: hydrOXYzine HCL 25 MG TABLET PO ×2 (11:01→16:27)
[2022-09-12] MEDS: Multivitamin TABLET 1 TAB PO (11:01)
[2022-09-12] MEDS: Pyridoxine HCl (Vitamin B6) 50 MG TABLET 100 MG PO (11:01)
[2022-09-12] MEDS: Atorvastatin Calcium 80 MG TABLET PO (11:02)
[2022-09-12] MEDS: Sertraline HCL 100 MG TABLET PO (11:02)
[2022-09-12] MEDS: Nystatin Powder 15 GM BOTTLE 1 APPL TOPICAL ×3 (11:08→20:14)
[2022-09-12] MEDS: 0.9 % Sodium Chloride Flush 3 ML SYRINGE IVFLUSH ×3 (11:08→20:14)
[2022-09-12] MEDS: Ergocalciferol (Vitamin D2) 1,250 MCG CAPSULE 1250 MCG PO (11:08)
[2022-09-12 11:33] LABS: Glucose, Whole Blood 149 mg/dL (60-115)
[2022-09-12 12:00] VITALS: BP 135/76; PULSE 90; RESP 17; TEMP 35.9; O2SAT 95
[2022-09-12] MEDS: levoFLOXacin/D5W 750 MG/150 ML PIGGYBACK 100 MG IV (13:41)
[2022-09-12 15:40] LABS: Glucose, Whole Blood 152 mg/dL (60-115)
[2022-09-12 15:50] VITALS: BP 128/71; PULSE 86; RESP 18; TEMP 36.7; O2SAT 96
[2022-09-12] MEDS: Insulin Lispro 100 UNIT/ML 3 ML VIAL SUBCUT (16:26)
[2022-09-12 19:16] VITALS: BP 133/89; PULSE 90; RESP 20; TEMP 36.7; O2SAT 93
[2022-09-12 19:44] LABS: Glucose, Whole Blood 113 mg/dL (60-115)
[2022-09-12] MEDS: Melatonin 3 MG TABLET PO (20:14)
[2022-09-12 23:50] VITALS: BP 148/68; PULSE 85; RESP 18; TEMP 36.3; O2SAT 94
[2022-09-13 03:37] VITALS: BP 150/72; PULSE 81; RESP 18; TEMP 36.6; O2SAT 94
[2022-09-13] MEDS: Omeprazole 40 MG CAPSULE.DR PO (05:41)
[2022-09-13 06:59] LABS: Hematocrit 27.1 % (37.0-47.0); Hemoglobin 8.4 g/dl (12.0-16.0); Mean Corpuscular Hemoglobin 24.8 pg (27.0-33.0); Mean Corpuscular Volume 79.9 fL (80.0-98.0); Mean Platelet Volume 9.8 fL (9.4-12.3); Platelet Count 716 X10*3/uL (160-400); Red Blood Count 3.39 X10*6/uL (4.20-5.50); Red Cell Distribution Width 19.8 % (11.0-16.0); White Blood Count 12.1 X10*3/uL (4.8-10.8)
[2022-09-13 07:21] LABS: Anion Gap 17 (12-20); Blood Urea Nitrogen 8 mg/dL (9-16); Calcium 8.4 mg/dL (8.4-10.2); Carbon Dioxide 24 mmol/L (22-29); Chloride 104 mmol/L (96-108); Creatinine Clr Calc Pharmacy 82.5; Estimated Glomerular Filt Rate > 60; Glucose Fasting 104 mg/dL (60-99); Potassium 4.4 mmol/L (3.3-5.1); Sodium 141 mmol/L (135-145)
[2022-09-13 07:50] LABS: Glucose, Whole Blood 113 mg/dL (60-115)
[2022-09-13 07:54] VITALS: BP 154/90; PULSE 85; RESP 18; TEMP 36.4; O2SAT 93
[2022-09-13] MEDS: oxyCODONE HCl Immed Release 5 MG TABLET PO (08:45)
[2022-09-13] MEDS: Pyridoxine HCl (Vitamin B6) 50 MG TABLET 100 MG PO (08:46)
[2022-09-13] MEDS: Atorvastatin Calcium 80 MG TABLET PO (08:46)
[2022-09-13] MEDS: Multivitamin TABLET 1 TAB PO (08:46)
[2022-09-13] MEDS: hydrOXYzine HCL 25 MG TABLET PO (08:46)
[2022-09-13] MEDS: Sertraline HCL 100 MG TABLET PO (08:46)
[2022-09-13] MEDS: Gabapentin 100 MG CAPSULE 200 MG PO (08:46)
[2022-09-13] MEDS: Enoxaparin Sodium 40 MG/0.4 ML SYRINGE SUBCUT (08:46)
[2022-09-13] MEDS: 0.9 % Sodium Chloride Flush 3 ML SYRINGE IVFLUSH (08:47)
[2022-09-13] MEDS: Nystatin Powder 15 GM BOTTLE 1 APPL TOPICAL (08:47)
--- NOTE | 2022-09-13 10:07 | W.MHC.F2F ---
Service Date Service Date: 09/13/22 Encounter Date of encounter: 09/13/22 Reasons for Services Signs and symptoms assessed: weakness, pain on movement Reason for mcfp: medication management, medication treatment, teach disease management and other (daily drainage of indwelling drains, outpatient follow up with surgery) Homebound: Leaving the home is medically contraindicated at this time without the asist of a device and/or another person due th the listed conditions above and below. Reason homebound: unsteady gait / fall risk Certification: Based on the above findings, I certify that this patient is confined to the home and needs intermittent mcfp care, physical therapy and/or speech therapy, or continues to need occupational therapy. The patient is under my care, and I have initiated the establishment of the plan of care. The patient will be followed by a physician who will periodically review the plan of care.
--- NOTE | 2022-09-13 10:08 | PM.DS ---
DS: Providers Provider Date of Service: 09/13/22 Date of admission: 09/08/22 12:48 Primary care physician: Rancho Duarte MD Consults: 09/08/22 12:48 Consult to Gastroenterology Routine Consulting Provider: Christin Batista Reason for consultation: hepatic hematoma/fluid collection 09/08/22 12:53 Consult to Urology Routine Consulting Provider: Shira Garcia Reason for consultation: perinephric fluid collection 09/08/22 21:27 Consult to General Surgery Routine Consulting Provider: Jean Churchill Reason for consultation: hepatic and perinephric fluid collections with sepsis 09/09/22 16:05 Consult to Infectious Diseases Routine Consulting Provider: Pallavi Valenzuela Reason for consultation: hepatic and renal abscesses, sepsis DS: Diagnosis Discharge Diagnosis (1) Hepatic abscess: Status: Acute (2) Renal abscess: Status: Acute (3) Sepsis: Status: Acute DS: Summary Hospital Course Hospital Course: from initial hpi: Chief Complaint: right flank/RLQ pain 51 year old female with a PMH of 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 She reports associated poor oral intake and chills. She denies any fevers. Has also has diarrhea with fecal incontinence now wearing brief x 2 months primarily in the am. Denies any dysuria, frequency, urgency, urinary incontinence, or hematuria. 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 White blood cell count 16.5, decreased from prior admission (last WBC 18.6 on 07/28/2022).? She is not oxygen dependent but has had intermittent hypoxia in the ED down to 83% now on 2 L supplemental O2 with slight to tachypnea 24.? Vital signs otherwise stable.? AST 37, ALT 33, alkaline phosphatase has doubled to 716.? Glucose 153.? Renal function stable.? Urinalysis unremarkable.? CT of the abdomen/pelvis showed right perinephric/subcapsular fluid collection increased in size from 07/23 study with mass effect on the kidney remaining anterior displaced with small calculi within the right kidney unchanged in size and without hydronephrosis.? There also new fluid collections observed the posterior to left hepatic lobe and posterior to right hepatic lobe with large lobulated, septated collection along the capsular surface of the posterior right lobe exerting mass effect upon the underlying liver.? The fluid collections have attenuation in the range of water without acute hemorrhage.? There is also cholelithiasis without evidence of acute cholecystitis and persistent splenomegaly.? She is reporting 9/10 pain and has received morphine, ondansetron, and 1 L normal saline. hospital course: Patient was admitted for sepsis secondary to hepatic and right renal abscess. She underwent drainage with drains remaining inside. Cultures and urine and drainage bags grew Serratia. Blood cultures were negative. She was seen by infectious disease recommended 2 weeks of oral levofloxacin. Course complicated by COPD with acute decompensation and acute hypoxic respiratory failure. This was treated with bronchodilators and patient was able to be weaned off O2. For diabetes she was treated with insulin. For severe obesity weight loss recommended and she can follow up outpatient with bariatric surgery. For hypertension initially her blood pressure medications were held for low BP is with sepsis, she can restart on discharge. For her GERD she was continued on PPI. Patient is feeling better will be discharged home. Time Spent with Patient Time attestation: Total time spent providing and/or coordinating discharge services: Discharge coordination time: Greater than 30 minutes Quality: Safe Use of Opioids Does Pt have an Active Cancer Diagnosis on the Problem List?: No Quality: Stroke Does the patient have a stroke diagnosis?: No Physical Exam Vital Signs: Vital Signs: Last Vital Signs Temp 97.5 F 09/13/22 07:54 Pulse 85 09/13/22 07:54 Resp 18 09/13/22 07:54 BP 154/90 H 09/13/22 07:54 Pulse Ox 93 09/13/22 07:54 O2 Del Method 09/13/22 07:54 O2 Flow Rate 2 09/11/22 03:48 BMI result Body Mass Index 37.5 Const: General: cooperative HEENT: Head: Yes normal to inspection Face and sinus: Yes normal facial exam Mouth: Normal oral and palatal mucosa present Teeth and gingiva: dentition normal Eyes: General: appearance normal, both eyes and all related structures Pupils: Equal, round and reactive pupils present Resp: Effort & Inspection: normal respiratory effort Cardio: Rate: regular rate Rhythm: regular rhythm GI: Palpation (GI): Soft to palpation and Tenderness to palpation present (GI) (right flank) : General: Yes no CVA tenderness Back/Spine/Pelvis: Back: no CVA tenderness Skin: General skin exam: no rashes or lesions noted Neuro: General: moves all extremities Cranial nerves: Yes Equal, round and reactive pupils present Extrem: General: Yes normal to inspection Psych: Appearance: grossly normal DS: Data Data Completed and Pending Completed studies during hospitalization [Text1]: Procedures Dilation of Right Ureter with Intraluminal Device, Via Natural or Artificial Opening Endoscopic (10/21/21) Fluoroscopy of Right Kidney, Ureter and Bladder (10/21/21) Labs on day of discharge: Laboratory Results - last 24 hr 09/12/22 09/12/22 09/12/22 11:17 15:34 19:24 WBC RBC Hgb Hct MCV MCH MCHC RDW Plt Count MPV Absolute Nucleated RBC Nucleated RBC % (auto) Sodium Potassium Chloride Carbon Dioxide Anion Gap BUN Creatinine Estim Creat Clear Calc Estimated GFR POC Glucose 149 H 152 H 113 Fasting Glucose Calcium 09/13/22 09/13/22 09/13/22 05:52 05:52 07:31 WBC 12.1 H RBC 3.39 L Hgb 8.4 L Hct 27.1 L MCV 79.9 L MCH 24.8 L MCHC 31.0 RDW 19.8 H Plt Count 716 H MPV 9.8 Absolute Nucleated RBC 0.000 Nucleated RBC % (auto) 0.0 Sodium 141 Potassium 4.4 Chloride 104 Carbon Dioxide 24 Anion Gap 17 BUN 8 L D Creatinine 0.86 Estim Creat Clear Calc 82.5 Estimated GFR > 60 POC Glucose 113 Fasting Glucose 104 H Calcium 8.4 Preliminary micro results at discharge 09/09/22 18:37 Blood Culture - Preliminary Blood - Venous No growth after 48 hours. 09/09/22 18:37 Blood Culture - Preliminary Blood - Venous No growth after 48 hours. 09/08/22 16:30 Anaerobic Culture - Preliminary Kidney - Abscess Culture in progress. Discharge Plan Discharge Anticipated Discharge Date/Time: 09/13/22 10:03 Patient Disposition: Home Health Service Discharge Diagnosis: liver and kidney abscesses Referrals: Rancho Duarte MD [Primary Care Provider] - 1 Week Discharge Medications: New levofloxacin 750 mg tablet 750 mg PO DAILY Qty: 14 0RF Continued sertraline 100 mg tablet 100 mg PO DAILY Qty: 30 3RF albuterol sulfate 90 mcg/actuation HFA aerosol inhaler 1 puff PO QID PRN (Reason: for dyspnea) Qty: 6.7 1RF (DME) lancets [FreeStyle Lancets] 28 gauge misc See Rx Instructions .Route Qty: 100 1RF Rx Instructions: Test 3 times daily atorvastatin 80 mg tablet 80 mg PO DAILY Qty: 30 3RF amlodipine [Norvasc] 5 mg tablet 5 mg PO BEDTIME Qty: 30 8RF carvedilol 12.5 mg tablet 12.5 mg PO BID Qty: 60 3RF (DME) FreeStyle Lite Strips Strip See Rx Instructions .Route Qty: 100 0RF Rx Instructions: Use 1 test strip three times a day omeprazole 40 mg capsule,delayed release(DR/EC) 40 mg PO DAILY Qty: 30 3RF (DME) blood-glucose meter [Freestyle [employer]] Misc See Rx Instructions .Route Qty: 1 0RF Rx Instructions: As directed (DME) blood-glucose meter [FreeStyle Lite Meter] Kit See Rx Instructions .ROUTE .MEDSUPPLY Qty: 1 0RF Rx Instructions: As directed gabapentin 100 mg capsule 200 mg PO TID Qty: 180 3RF ergocalciferol (vitamin D2) [Vitamin D2] 1,250 mcg (50,000 unit) capsule 1,250 mcg PO SA Label Comments: on saturdays metformin 500 mg tablet 500 mg PO DAILY@1200 insulin aspart U-100 [Novolog Flexpen U-100 Insulin] 100 unit/mL (3 mL) insulin pen 22 unit subcut DAILY aspirin 81 mg tablet,delayed release (DR/EC) 81 mg PO DAILY melatonin 3 mg tablet 3 mg PO BEDTIME Label Comments: OTC per pt One Daily Multi-Vit w-Mineral 4.5 mg iron tablet 1 tab PO DAILY Label Comments: OTC per pt tramadol 50 mg tablet 50 mg PO Q8H PRN (Reason: pain) Qty: 20 0RF hydroxyzine pamoate 25 mg capsule 25 mg PO BID@0900,1700 (DME) pen needle, diabetic [BD Ultra-Fine Gi Pen Needle] 32 gauge x 5/32 needle See Rx Instructions subcut DAILY Qty: 50 Rx Instructions: As directed pyridoxine (vitamin B6) 100 mg tablet 100 mg PO DAILY 90 Days Qty: 90 1RF Discharge Orders: Discharge Order (Routine); Ordered 09/13/22 Ordered By: Vignesh Maki Diet: Diabetic diet Activity on Discharge: As tolerated Stand Alone Forms: Patient Portal Discharge page Care Plan Goals: recovery Health Concerns: abscesses Plan of Treatment: 14 more days levaquin, follow up surgery Assessment: see above
--- NOTE | 2022-09-13 10:26 | MHC.CM.PN ---
PT TO DC HOME TODAY WITH RESUMPTION OF EPIC [facility] PT TO ARRANGE TRANSPORT
[2022-09-13 11:39] LABS: Glucose, Whole Blood 149 mg/dL (60-115)
[2022-09-14 22:26] LABS: IgA 256 mg/dL (47-310); IgG 1264 mg/dL (600-1640); IgM 227 mg/dL (50-300)
== END 2022-09-13 12:47 | disposition home health service (06) | DRG 871 ==
LOC: HO.ED 09:46 → HO.EDOVER 13:06 → HO.S3 19:40
PROVIDERS: Internal Medicine; Radiology Diagnostic Radiology; Admitting Provider Physician Assistant; Emergency Provider Emergency Medicine Emergency Medical Services; PCP Internal Medicine; Visit Provider Internal Medicine
PROC: 0F913ZZ Drainage of Right Lobe Liver, Percutaneous Approach (ICD-10-PCS; principal; 2022-09-08 14:30)
DX: A41.9 Sepsis, unspecified organism (principal); J96.01 Acute respiratory failure with hypoxia; N15.1 Renal and perinephric abscess; K75.0 Abscess of liver; J44.1 Chronic obstructive pulmonary disease with (acute) exacerbation; I25.10 Atherosclerotic heart disease of native coronary artery without angina pectoris; F32.A Depression, unspecified; I25.2 Old myocardial infarction; R15.9 Full incontinence of feces; E11.65 Type 2 diabetes mellitus with hyperglycemia; E66.01 Morbid (severe) obesity due to excess calories; Z68.37 Body mass index [BMI] 37.0-37.9, adult; I12.9 Hypertensive chronic kidney disease with stage 1 through stage 4 chronic kidney disease, or unspecified chronic kidney disease; G47.33 Obstructive sleep apnea (adult) (pediatric); N18.9 Chronic kidney disease, unspecified; E11.22 Type 2 diabetes mellitus with diabetic chronic kidney disease; F17.210 Nicotine dependence, cigarettes, uncomplicated; Z87.442 Personal history of urinary calculi; Z20.822 Contact with and (suspected) exposure to COVID-19; Z87.440 Personal history of urinary (tract) infections; Z71.6 Tobacco abuse counseling; Z79.82 Long term (current) use of aspirin; Z79.84 Long term (current) use of oral hypoglycemic drugs; Z79.899 Other long term (current) drug therapy
CPT/HCPCS: 0241U; 10009; 36415; 49405; 71045; 74176; 80048; 80053; 81001; 82784; 82803; 82947; 83036; 83605; 85025; 85027; 85610; 87040; 87070; 87073; 87077; 87086; 87088; 87186; 87205; 87635; 99285; C1729; J1170; J1650; J1956; J2270; J2405; J2543; Q4186

== ENCOUNTER → 2022-09-22 15:54 | Outpatient (BNVA) | payer OTHER, SELFPAY | PROVIDERS: PCP Internal Medicine; Visit Provider Urology | DX: N15.1 Renal and perinephric abscess (principal); K75.0 Abscess of liver | CPT/HCPCS: Q3014 ==

== ENCOUNTER 2022-10-21 09:49 | Outpatient (REF) | payer OTHER, SELFPAY | END 2022-10-21 09:50 | disposition home or self-care (01) | LOC: HO.HMGCX 09:49 | PROVIDERS: PCP Internal Medicine; Visit Provider Internal Medicine Gastroenterology | DX: K75.0 Abscess of liver (principal) | CPT/HCPCS: 76705 ==

== ENCOUNTER → 2022-10-28 09:48 | Outpatient (BNVA) | payer OTHER, SELFPAY | PROVIDERS: PCP Internal Medicine; Visit Provider Internal Medicine | DX: I25.10 Atherosclerotic heart disease of native coronary artery without angina pectoris (principal); I25.2 Old myocardial infarction; E11.8 Type 2 diabetes mellitus with unspecified complications; F17.210 Nicotine dependence, cigarettes, uncomplicated; Z79.4 Long term (current) use of insulin; Z79.82 Long term (current) use of aspirin; Z79.899 Other long term (current) drug therapy | CPT/HCPCS: 99212 ==

== ENCOUNTER 2022-10-30 10:40 | Outpatient (REF) | payer OTHER, SELFPAY ==
[2022-10-30 12:02] LABS: MANUAL DIFF FLAG NO
[2022-10-30 12:39] LABS: Basophils Absolute Auto 0.1 X10*3/uL (0.0-0.2); Basophils Percent Auto 0.9 % (0-2); Eosinophils Absolute Auto 0.4 X10*3/uL (0.0-0.4); Eosinophils Percent Auto 3.4 % (0-4); Hematocrit 38.9 % (37.0-47.0); Hemoglobin 12.3 g/dl (12.0-16.0); Imm Gran Abs Auto 0.03 X10*3/uL (0.00-0.03); Imm Gran Pct Auto 0.3 % (0.0-0.4); Lymphocytes Absolute Auto 1.9 X10*3/uL (1.2-4.9); Lymphocytes Percent Auto 18.1 % (20-40); Mean Corpuscular HGB Conc 31.6 g/dl (31.0-35.0); Mean Corpuscular Hemoglobin 26.6 pg (27.0-33.0); Mean Platelet Volume 11.3 fL (9.4-12.3); Monocytes Absolute Auto 0.5 X10*3/uL (0.1-1.2); Monocytes Percent Auto 4.4 % (2-11); Neutrophils Absolute Auto 7.6 x10*3/uL (2.0-8.3); Neutrophils Percent Auto 72.9 % (45-73); Platelet Count 351 X10*3/uL (160-400); Red Blood Count 4.63 X10*6/uL (4.20-5.50); Red Cell Distribution Width 17.5 % (11.0-16.0); White Blood Count 10.4 X10*3/uL (4.8-10.8)
[2022-10-30 13:19] LABS: Alanine Aminotransferase 11 U/L (0-31); Alkaline Phosphatase 87 U/L (39-117); Anion Gap 14 (12-20); Aspartate Amino Transferase 13 U/L (5-31); Bilirubin Total 0.4 mg/dL (0.0-1.0); Blood Urea Nitrogen 24 mg/dL (9-16); Calcium 9.4 mg/dL (8.4-10.2); Carbon Dioxide 21 mmol/L (22-29); Chloride 109 mmol/L (96-108); Estimated Glomerular Filt Rate 60; Glucose Random 260 mg/dL (60-115); Potassium 4.5 mmol/L (3.3-5.1); Sodium 139 mmol/L (135-145); Total Protein 7.2 g/dL (6.5-8.0)
== END 2022-10-30 10:41 | disposition home or self-care (01) ==
LOC: HO.LAB 10:40
PROVIDERS: PCP Internal Medicine; Visit Provider Internal Medicine Gastroenterology
DX: K75.0 Abscess of liver (principal); N15.1 Renal and perinephric abscess; K75.81 Nonalcoholic steatohepatitis (NASH); R19.7 Diarrhea, unspecified; E11.9 Type 2 diabetes mellitus without complications; K21.9 Gastro-esophageal reflux disease without esophagitis; I10 Essential (primary) hypertension; F17.210 Nicotine dependence, cigarettes, uncomplicated; Z79.4 Long term (current) use of insulin
CPT/HCPCS: 36415; 80053; 85025; 99212

== ENCOUNTER → 2022-11-12 13:15 | Outpatient (BNVA) | payer OTHER, SELFPAY | PROVIDERS: PCP Internal Medicine; Visit Provider Urology | DX: N15.1 Renal and perinephric abscess (principal) | CPT/HCPCS: 99212 ==

== ENCOUNTER 2022-11-17 12:21 | Day surgery (SDC) | payer OTHER, SELFPAY ==
--- NOTE | ~2022-11-17 | CT_ITS ---
EXAMINATION: CT ABDOMEN AND PELVIS WITHOUT CONTRAST CLINICAL INFORMATION: Abscess of liver. COMPARISON: CT guided liver aspiration and drainage catheter placement 09/08/2022 TECHNIQUE: Multidetector volumetric imaging was performed from the superior aspect of the liver through the pubic symphysis. Sagittal and coronal reformatted images were obtained on the technologist's workstation. This CT examination was performed using dose optimization techniques as appropriate, variously including the following: *Automated exposure control *Adjustment of mA and/or kV according to patient size (this includes techniques or standardized protocols for targeted exams where dose is matched to indication/reason for exam; i.e. extremities or head) *Use of iterative reconstruction technique DLP: 345 mGy-cm. FINDINGS: LUNG BASES: There is patchy atelectasis right middle lobe and lingula. LIVER, GALLBLADDER, AND BILIARY TREE: The liver is normal in size, shape, and attenuation. No focal hepatic lesion or biliary ductal dilatation is present. The gallbladder is unremarkable with evidence of radiopaque stones or gravel without wall thickening. Inferior to right hepatic lobe is percutaneous drainage catheter with completely resolved collection perihepatic collection. PANCREAS: Unremarkable. SPLEEN: Unremarkable. ADRENAL GLANDS: Unremarkable. KIDNEYS AND URETERS: The kidneys are normal in size, shape, and attenuation. No hydronephrosis, hydroureter, or calculi seen. No perinephric stranding. There is a small posterior right perinephric collection measuring 2.9 x 4.1 cm. Previously placed catheter has been removed by referring physician. BLADDER: Unremarkable. GASTROINTESTINAL TRACT: There is moderate stool in colon without distention. The small bowel loops are normal. There is mild thickening of the right colon fascia and fat stranding around the coronal fascia. ABDOMINAL WALL: No significant hernia is appreciated. LYMPH NODES: Normal. VASCULAR: Unremarkable. PELVIC VISCERA: There is a known calcified uterine left uterine fibroid. Minimal free fluid is seen in the pelvis. No abnormal pelvic lymph nodes seen. OSSEOUS STRUCTURES: Unremarkable. CT/CT abdomen pelvis wo IV con IMPRESSION: Interval significant improved. Improvement in the right perinephric fluid collection. Previously placed venous catheter in the perinephric space has been removed by the urologist. Interval significant improvement and resolution of right perihepatic collection with percutaneously placed catheter in place. This catheter was removed as there was no drainage and the collection has resolved after speaking with the financial systems manager. Cholelithiasis. Fleischner guidelines were followed.
[2022-11-17 12:26] VITALS: BMI 34.3
[2022-11-17 12:47] LABS: MANUAL DIFF FLAG NO
[2022-11-17 12:52] LABS: Basophils Absolute Auto 0.1 X10*3/uL (0.0-0.2); Basophils Percent Auto 0.6 % (0-2); Eosinophils Absolute Auto 0.4 X10*3/uL (0.0-0.4); Eosinophils Percent Auto 3.8 % (0-4); Hematocrit 41.2 % (37.0-47.0); Imm Gran Abs Auto 0.03 X10*3/uL (0.00-0.03); Imm Gran Pct Auto 0.3 % (0.0-0.4); Lymphocytes Absolute Auto 1.9 X10*3/uL (1.2-4.9); Lymphocytes Percent Auto 20.1 % (20-40); Mean Corpuscular HGB Conc 31.6 g/dl (31.0-35.0); Mean Corpuscular Hemoglobin 26.2 pg (27.0-33.0); Mean Corpuscular Volume 82.9 fL (80.0-98.0); Mean Platelet Volume 9.8 fL (9.4-12.3); Monocytes Absolute Auto 0.4 X10*3/uL (0.1-1.2); Monocytes Percent Auto 4.6 % (2-11); Neutrophils Absolute Auto 6.5 x10*3/uL (2.0-8.3); Neutrophils Percent Auto 70.6 % (45-73); Platelet Count 330 X10*3/uL (160-400); Red Blood Count 4.97 X10*6/uL (4.20-5.50); Red Cell Distribution Width 15.9 % (11.0-16.0); White Blood Count 9.3 X10*3/uL (4.8-10.8)
[2022-11-17 12:59] LABS: Partial Thromboplastin Time 37.2 SEC (26.0-36.4)
[2022-11-17 13:02] LABS: Glucose, Whole Blood 202 mg/dL (60-115)
[2022-11-17 14:13] VITALS: BP 155/83; PULSE 61; RESP 16; TEMP 36.6; O2SAT 95
== END 2022-11-17 14:21 | disposition home or self-care (01) ==
PROVIDERS: PCP Internal Medicine; Visit Provider Radiology Diagnostic Radiology
DX: K75.0 Abscess of liver (principal); N15.1 Renal and perinephric abscess; K80.20 Calculus of gallbladder without cholecystitis without obstruction; K21.9 Gastro-esophageal reflux disease without esophagitis; J98.11 Atelectasis; E11.22 Type 2 diabetes mellitus with diabetic chronic kidney disease; I12.9 Hypertensive chronic kidney disease with stage 1 through stage 4 chronic kidney disease, or unspecified chronic kidney disease; N18.9 Chronic kidney disease, unspecified; Z79.4 Long term (current) use of insulin; I25.10 Atherosclerotic heart disease of native coronary artery without angina pectoris; I25.2 Old myocardial infarction; E66.01 Morbid (severe) obesity due to excess calories; Z68.34 Body mass index [BMI] 34.0-34.9, adult; Z98.61 Coronary angioplasty status; F17.210 Nicotine dependence, cigarettes, uncomplicated
CPT/HCPCS: 36415; 74176; 82947; 85025; 85610; 85730; J2250; J3010

== ENCOUNTER 2023-04-26 08:49 | Outpatient (REF) | payer OTHER, SELFPAY ==
--- NOTE | ~2023-04-26 | US_ITS ---
EXAMINATION: US RETROPERITONEAL LIMITED (RENAL ONLY) CLINICAL INFORMATION: Calculus of kidney. COMPARISON: CT abdomen and pelvis without contrast 11/17/2022. Ultrasound abdomen limited 10/21/2022 and 06/17/2022. X-ray abdomen KUB 06/03/2022. TECHNIQUE: Real-time imaging of the kidneys. FINDINGS: RIGHT KIDNEY: 8.5 x 3.7 x 3.9 cm (SAG x AP x TRV). The kidney is mildly atrophic with areas of cortical scarring. Are 3 echogenic foci with twinkle artifact present consistent with calculi in the mid and lower kidney measuring between 4 and 6 mm in size. There is a mass present lateral to the lower pole of the right kidney measuring 5.1 x 2.2 x 3.9 cm which may represent the residua of previously seen perinephric abscess. No renal parenchymal lesions or hydronephrosis. LEFT KIDNEY: 12.4 x 5.5 x 5.7 cm (SAG x AP x TRV). The kidney is normal in size, contour, and echogenicity. Renal cortical thickness is normal. No calculi or focal parenchymal lesions. No hydronephrosis. US/US renal BI IMPRESSION: 1. Right-sided renal calculi. 2. Right-sided perinephric mass which may represent the residua of previously seen perinephric abscess. 3. Atrophic right kidney with areas of cortical scarring. 4. Normal-appearing left kidney.
== END 2023-04-26 08:50 | disposition home or self-care (01) ==
LOC: HO.HMGCX 08:49
PROVIDERS: PCP Internal Medicine; Visit Provider Urology
DX: N20.0 Calculus of kidney (principal)
CPT/HCPCS: 76775

== ENCOUNTER → 2023-04-28 13:24 | Outpatient (BNVA) | payer OTHER, SELFPAY | PROVIDERS: PCP Internal Medicine; Referring Provider Internal Medicine; Visit Provider Internal Medicine | DX: I25.10 Atherosclerotic heart disease of native coronary artery without angina pectoris (principal); I10 Essential (primary) hypertension; E11.8 Type 2 diabetes mellitus with unspecified complications; F17.200 Nicotine dependence, unspecified, uncomplicated; Z79.82 Long term (current) use of aspirin; Z79.899 Other long term (current) drug therapy | CPT/HCPCS: 99212 ==

== ENCOUNTER 2023-07-23 | Outpatient (REF) | payer OTHER, SELFPAY ==
[2023-07-23 12:57] LABS: Estimated Average Glucose 309 mg/dL; Hemoglobin A1c % 12.4 % (<6.0)
[2023-07-23 13:44] LABS: Glucose Random 518 mg/dL (60-115)
== END 2023-07-23 00:01 ==
LOC: HO.LAB
PROVIDERS: PCP Internal Medicine; Visit Provider Physician Assistant Surgical
DX: E11.22 Type 2 diabetes mellitus with diabetic chronic kidney disease (principal); I10 Essential (primary) hypertension; F17.210 Nicotine dependence, cigarettes, uncomplicated; E66.9 Obesity, unspecified; Z79.899 Other long term (current) drug therapy
CPT/HCPCS: 36415; 82947; 83036; 99453

== ENCOUNTER 2023-07-23 11:49 | Outpatient (AMB) | payer OTHER, SELFPAY ==
--- NOTE | 2023-07-23 15:35 | HO.OFFWMMET ---
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 Allergies No Known Allergies Allergy (Verified 04/28/23 13:29) Medication List - Last Reconciled 07/23/23 by DORITA Yu albuterol sulfate 90 mcg/actuation 1 puff PO QID PRN amlodipine 10 mg PO DAILY aspirin 81 mg PO DAILY atorvastatin 80 mg PO DAILY blood sugar diagnostic (FreeStyle Lite Strips) Use 1 test strip three times a day blood-glucose meter (FreeStyle Lite Meter kit) As directed carvedilol (Coreg) 25 mg PO BID 90 days ergocalciferol (vitamin D2) (Vitamin D2) 1,250 mcg PO QWEEK gabapentin 200 mg (2 x 100 mg) PO TID hydrochlorothiazide 25 mg PO DAILY hydroxyzine pamoate 25 mg PO BID@0900,1700 insulin aspart U-100 (Novolog FlexPen U-100 Insulin aspart) 22 units (0.22 mL) subcut DAILY lancets (FreeStyle Lancets) Test 3 times daily melatonin 3 mg PO BEDTIME metformin 500 mg PO DAILY@1200 [id number]-[id number] sulfate 4.5 mg iron (One Daily Multivitamins with Minerals) 1 tab PO DAILY omeprazole 40 mg PO DAILY pen needle, diabetic (BD Ultra-Fine Gi Pen Needle) As directed pyridoxine (vitamin B6) 100 mg PO DAILY 90 days sertraline 100 mg PO DAILY tramadol 50 mg PO Q8H PRN HPI HPI Comments History of Present Illness Details 52 yo female presented to metabolic clinic. She has had known uncontrolled DM, HTN. She smokes and has had multiple hospitalizations assoc with infections worsened by DM. 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 Necrotizing fasciitis Surgical History History of surgery History of surgery Hx of cystoscopy History of breast lump/mass excision (~03/2017) History of heart artery stent (~09/2015) History of arthroscopy of left knee (~12/2011) Family History Father Alzheimer's dementia Social History Household Members: Other Household Members Other:: Roommate Housing: House Do you presently have visiting nurse or other home services: Yes Alcohol intake: former Patient Tobacco Use Status: Current everyday Tobacco user Tobacco use type: Cigarette Cigarette Packs Per Day: 1 Cigarettes Per Day: 11 Years Smoked: 30 +/- e-Cigarette/Vaping Use: Former Use Second Hand Smoke Exposure: Yes Substance Use Type: Marijuana Advance Directives Date on File: 07/23/22 service: No Current occupational status: disabled Cognitive needs: No Hearing needs: No Vision needs: Yes Assessment & Plan Assessment & Plan (1) Obesity (BMI 30-39.9): Comment: see above Code(s): E66.9 - Obesity, unspecified Plan: Pt watched presentation and decided to stay to participate in metabolic clinic. She does not have a computer, cell phone or wifi at home. We went over the [employer] and she was given a meal plan and exercise plan consisting of walking outside as she does not have access to a gym or have exercise equipment in her home. She was encouraged to quit smoking and stop the 2 Liter of coke daily. She was made aware of her critical glucose reading of 518. She was advised to go to the ER for severe hyperglycemia. She reported no symptoms and infact stated she does not often check her blood sugar as she does not want to know the number. She declined going to the ER and since she was clear in her thinking and able to understand the risks of severe hyperglycemia as described by my, she has chosen not to seek medical care. She will return to the clinic weekly for weights and adjustments to medications as needed. She does state she has a glucometer at home and she will call the office if any glycemic concerns. Orders: Orders Hemoglobin A1c Today E11.22 - Type 2 diabetes mellitus with diabetic chronic kidney disease Glucose Random Today E11.22 - Type 2 diabetes mellitus with diabetic chronic kidney disease Coding Level of Care Code 55739 [facility] Intital setup, [facility] Diagnoses Obesity (BMI 30-39.9) E66.9
== END 2023-07-23 15:47 | disposition home or self-care (01) ==
LOC: HO.META 11:49
PROVIDERS: PCP Internal Medicine; Visit Provider Physician Assistant Surgical
DX: E66.9 Obesity, unspecified (principal)

== ENCOUNTER 2023-07-28 12:45 | Outpatient (AMB) | payer OTHER, SELFPAY ==
[2023-07-28 12:47] VITALS: BP 130/60; PULSE 63; O2SAT 94; BMI 38.3
--- NOTE | 2023-07-28 12:47 | MHC.PC.OV ---
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 Accompanied by: Self / Same As Patient Allergies No Known Allergies Allergy (Verified 07/28/23 12:47) Medication List - Last Reconciled 07/28/23 by Rancho Duarte MD albuterol sulfate 90 mcg/actuation 1 puff PO QID PRN amlodipine 10 mg PO DAILY aspirin 81 mg PO DAILY atorvastatin 80 mg PO DAILY blood sugar diagnostic (FreeStyle Lite Strips) Use 1 test strip three times a day blood-glucose meter (FreeStyle Lite Meter kit) As directed carvedilol (Coreg) 25 mg PO BID 90 days ergocalciferol (vitamin D2) (Vitamin D2) 1,250 mcg PO QWEEK gabapentin 200 mg (2 x 100 mg) PO TID hydrochlorothiazide 25 mg PO DAILY hydroxyzine pamoate 25 mg PO BID@0900,1700 insulin aspart U-100 (Novolog FlexPen U-100 Insulin aspart) 22 units (0.22 mL) subcut DAILY lancets (FreeStyle Lancets) Test 3 times daily melatonin 3 mg PO BEDTIME metformin 500 mg PO DAILY@1200 jwyzwvjc-xui-uoungda sulfate 4.5 mg iron (One Daily Multivitamins with Minerals) 1 tab PO DAILY omeprazole 40 mg PO DAILY pen needle, diabetic (BD Ultra-Fine Gi Pen Needle) As directed pyridoxine (vitamin B6) 100 mg PO DAILY 90 days sertraline 100 mg PO DAILY tramadol 50 mg PO Q8H PRN Tobacco use date assessed: 02/10/23 Dental Screening Dental Screen Date: 07/28/23 Did you have a dental visit in the last 12 months?: No Did you have a dental problem in the last 6 months where you did not have access to dental care?: No Was dental information given to patient?: Patient has dentist HPI PE HPI Details DM HTN hyperlipidemia PFSH Medical History Pararenal urinoma Myocardial infarction COVID-19 vaccine series completed Nephrolithiasis Type 2 diabetes mellitus with morbid obesity Obesity (BMI 30-39.9) Depression Vitamin D deficiency GERD without esophagitis Coronary artery disease Benign essential hypertension Pure hypercholesterolemia Intertrigo Type 2 diabetes mellitus with diabetic chronic kidney disease High blood pressure 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 Necrotizing fasciitis Surgical History History of surgery History of surgery Hx of cystoscopy History of breast lump/mass excision (~03/2017) History of heart artery stent (~09/2015) History of arthroscopy of left knee (~12/2011) Family History Father Alzheimer's dementia Social History Household Members: Other Household Members Other:: Roommate Housing: House Do you presently have visiting nurse or other home services: Yes Alcohol intake: former Patient Tobacco Use Status: Current everyday Tobacco user Tobacco use type: Cigarette Cigarette Packs Per Day: 1 Cigarettes Per Day: 11 Years Smoked: 30 +/- e-Cigarette/Vaping Use: Former Use Second Hand Smoke Exposure: Yes Substance Use Type: Marijuana Advance Directives Date on File: 07/23/22 service: No Current occupational status: disabled Cognitive needs: No Hearing needs: No Vision needs: Yes Questionnaire PHQ-9 Over the last 2 weeks, how often have you been bothered by any of the following problems? 1. Little interest or pleasure in doing things: several days 2. Feeling down, depressed, or hopeless: several days 3. Trouble falling or staying asleep, or sleeping too much: not at all 4. Feeling tired or having little energy: not at all 5. Poor appetite or overeating: not at all 6. Feeling bad about yourself - or that you are a failure or have let yourself or your family down: not at all 7. Trouble concentrating on things, such as reading the newspaper or watching television: not at all 8. Moving or speaking so slowly that other people could have noticed. Or the opposite - being so fidgety or restless that you have been moving around a lot more than usual: not at all 9. Thoughts that you would be better off or of hurting yourself in some way: not at all Total score: 2 Depression Screening Interpretation: Positive 44793 - PHQ-9 Billing: Yes Source: Developed by Drs. Bhavin Sanchez, Shelby Ordonez, Raymond Mcleod and colleagues, with an educational wicho from [employer]. Thrive Questionnaire Date Thrive assessed: 01/01/23 AUDIT C Alcohol Use Questionnaire (AUDIT-C) 1. How often do you have a drink containing alcohol?: Monthly or less 2. How many drinks containing alcohol do you have on a typical day when you are drinking?: 1 or 2 3. How often do you have six or more drinks on one occasion?: Never Total Score: 1 Score Reviewed/Action Taken: Yes SAJAN-7 AMB Questionnaire SAJAN-7 Date SAJAN - 7 assessed: 01/01/23 Source: Developed by Drs. Bhavin Sanchez, Shelby Ordonez, Raymond Mcleod and colleagues, with an educational wicho from [employer]. Review of Systems Const Denies chills, Denies fatigue, Denies headache(s) and Denies weight loss Eyes Denies change in vision, Denies diplopia and Denies eye pain ENT Denies vertigo, Denies dizziness, Denies headache(s) and Denies nasal discharge Card Denies chest pain, Denies rapid heart rate and Denies dyspnea on exertion Resp Denies chest congestion, Denies cough, Denies pain with cough and Denies dyspnea on exertion GI Denies abdominal pain, Denies hematochezia and Denies change in bowel habits Musc Denies myalgias, Denies arthralgias and Denies joint swelling Skin/Breast Denies lesions and Denies unusual bruising Neuro Denies vertigo, Denies dizziness, Denies headache(s) and Denies focal weakness Endo Denies fatigue Physical exam (Primary Care) Vital Signs: Last Vital Signs Pulse 63 07/28/23 12:47 BP 130/60 07/28/23 12:47 Pulse Ox 94 07/28/23 12:47 Oxygen Delivery Method Room Air 07/28/23 12:47 BMI result Body Mass Index 38.3 obesity BMI Assessment/Plan discussion: High BMI High, discussed plan: lifestyle, weight reduction, dietary and physical activity Tobacco/Smoking Status: Tobacco use Status Tobacco use date assessed 02/10/23 07/28/23 12:53 Patient Tobacco Use Status Current everyday Tobacco 07/28/23 12:53 Tobacco use type Cigarette 09/27/23 12:53 e-Cigarette/Vaping Use Former Use 07/28/23 12:53 Are you ready to quit: No Number of minutes spent counselin CPT code: 61962 - 4-10 Minutes PHQ-9: PHQ-9 Score PHQ-9: Total score 2 07/28/23 12:53 Depression Screening Interpretation: Positive Thrive Assessment: Date of Thrive Assessment Date Thrive assessed 01/01/23 07/28/23 12:53 Advance Care Planning discussion: On file, no changes Forms completed: Health Care Proxy Const General: cooperative, healthy appearing and no acute distress Orientation/consciousness: oriented to person, oriented to place and oriented to time HENMT Head: Yes normal to inspection, Yes normocephalic and Yes atraumatic Mouth: Normal oral and palatal mucosa present and tongue normal Throat: Yes posterior oropharynx normal and Yes uvula midline Eyes General: appearance normal, both eyes and all related structures Neck Neck: Yes normal visual inspection, Yes full ROM and Yes no lymphadenopathy Thyroid: Thyroid normal Carotids: normal carotid upstroke Chest Chest palpation & inspection: normal inspection of the chest Resp Effort & Inspection: normal respiratory effort and able to speak in complete sentences Auscultation: clear to auscultation bilaterally Cardio Jugular venous distension: no JVD Palpation: normal PMI Rate: regular rate Rhythm: regular rhythm Heart sounds: S1 normal heart sound present and S2 normal heart sound present GI Inspection: Yes normal to inspection Palpation (GI): Soft to palpation and No hepatosplenomegaly present Auscultation: normal bowel sounds General: Yes no CVA tenderness Back/Spine/Pelvis Back: no CVA tenderness Skin General skin exam: no rashes or lesions noted Neuro General: oriented to person, oriented to place and oriented to time Extrem General: Yes normal to inspection and Yes full ROM Assessment and Plan Assessment & Plan (1) Physical exam: Code(s): Z00.00 - Encounter for general adult medical examination without abnormal findings Plan: labs (2) Obesity (BMI 30-39.9): Comment: see above Code(s): E66.9 - Obesity, unspecified Plan: as above (3) Diabetes mellitus with coincident hypertension: Code(s): E11.9 - Type 2 diabetes mellitus without complications; I10 - Essential (primary) hypertension Plan: increase rx (4) Hyperlipidemia: Code(s): E78.5 - Hyperlipidemia, unspecified Plan: do labs Orders: Orders Lipid Panel Today E78.5 - Hyperlipidemia, unspecified Microalbumin, Random (w Creat) Today E11.69 - Type 2 diabetes mellitus with other specified complication, E66.01 - Morbid (severe) obesity due to excess calories Thyroid Stimulating Hormone Today E03.9 - Hypothyroidism, unspecified Complete Blood Count Auto Diff Today D64.9 - Anemia, unspecified Comprehensive [place]. Panel Fast Today N28.9 - Disorder of kidney and ureter, unspecified Hemoglobin A1c Today R73.9 - Hyperglycemia, unspecified MM tomosynthesis screen imp BI Today Z12.31 - Encounter for screening mammogram for malignant neoplasm of breast Referrals Gastroenterology Referral Z12.11 - Encounter for screening for malignant neoplasm of colon Coding Level of Care Code Est Pt Prev Care 40-64y(72972) Diagnoses Physical exam Z00.00 Obesity (BMI 30-39.9) E66.9 Diabetes mellitus with coincident hypertension E11.9; I10 Hyperlipidemia E78.5 Additional Codes Vital Signs *Quality* - CPT code: 41770 - 4-10 Minutes ([id number]) Vital Signs *Quality* - Advance Care Planning discussion: On file, no changes ([id number])
== END 2023-07-28 13:09 | disposition home or self-care (01) ==
PROVIDERS: PCP Internal Medicine; Visit Provider Internal Medicine
DX: Z00.00 Encounter for general adult medical examination without abnormal findings (principal); E66.9 Obesity, unspecified; E11.9 Type 2 diabetes mellitus without complications; Z68.38 Body mass index [BMI] 38.0-38.9, adult; I10 Essential (primary) hypertension; E78.5 Hyperlipidemia, unspecified
CPT/HCPCS: 1123F; 99396

== ENCOUNTER → 2023-08-06 11:55 | Outpatient (BNVA) | payer OTHER, SELFPAY | PROVIDERS: PCP Internal Medicine; Visit Provider Physician Assistant Surgical ==

== ENCOUNTER 2023-09-02 09:10 | Outpatient (REF) | payer OTHER, SELFPAY ==
--- NOTE | ~2023-09-02 | MM_ITS ---
EXAMINATION: MM SCREENING DIGITAL BREAST TOMOSYNTHESIS, BILATERAL CLINICAL INFORMATION: Screening. Asymptomatic. COMPARISON: Mammography: This study is compared with prior exams dating back to 2015. TECHNIQUE: Digital breast tomosynthesis is performed in both the craniocaudal and mediolateral oblique views along with computer-aided detection (CAD). Synthesized 2D images are generated from the tomosynthesis. FINDINGS: The breasts are almost entirely fatty (ACR BI-RADS breast composition Category a). There are no significant masses, abnormal calcifications, or other abnormalities. MM/MM tomosynthesis screening BI IMPRESSION: No mammographic evidence of malignancy. ASSESSMENT: BI-RADS BI-RADS 1 - Negative RECOMMENDATION: Routine annual mammography screening. 1 year F/U This examination should not preclude the clinical evaluation of a suspicious palpable abnormality. This patient's information was entered into a reminder system with a target due date for their next mammogram.
== END 2023-09-02 09:11 | disposition home or self-care (01) ==
LOC: HO.MAMMO 09:10
PROVIDERS: Visit Provider Internal Medicine
DX: Z12.31 Encounter for screening mammogram for malignant neoplasm of breast (principal)
CPT/HCPCS: 77063; 77067

== ENCOUNTER → 2023-09-02 09:30 | Outpatient (BNV) | payer OTHER, SELFPAY | PROVIDERS: Visit Provider Radiology Diagnostic Radiology | DX: Z12.31 Encounter for screening mammogram for malignant neoplasm of breast (principal) | CPT/HCPCS: 77063; 77067 ==

== ENCOUNTER 2024-11-17 07:41 | Inpatient (IN) | payer MEDICARE, SELFPAY ==
[2024-11-17] VITALS (15 sets, daily range): BP systolic 115–180; BP diastolic 84–110; PULSE 102–152; RESP 18–38; TEMP 36.3–36.6; O2SAT 80–98; BMI 33.6
--- NOTE | ~2024-11-17 | XR_ITS ---
CLINICAL HISTORY: Influenza A, ? CHF 1 view chest x-ray. Comparison: CR/SR - XR CHEST 1V - 11/17/24 08:44 EST CR/SR - XR CHEST 1V - 09/08/22 14:18 EST CR/SR - XR CHEST 1V - 07/23/22 09:30 EDT Findings: Normal left lung volumes. Persistent eventration right hemidiaphragm. Bilateral interstitial thickening. No pneumothorax or pleural effusion. Cardiomegaly.Passive venous congestion. No midline shift or tracheal deviation. No acute fracture. Impression: 1. Stable eventration right hemidiaphragm. Cardiomegaly with interstitial thickening and passive venous congestion consider mild CHF superimposed pneumonic process not excluded. Findings stable. This document has been electronically signed by: Davon Chowdhury MD on 11/19/2024 11:36:36
--- NOTE | ~2024-11-17 | XR_ITS ---
EXAMINATION: XR CHEST CLINICAL INFORMATION: shortness of breath COMPARISON: X-ray dated September 08, 2022 TECHNIQUE: Frontal view of the chest was obtained. FINDINGS: Indistinct margins in the perihilar regions. Prominence of the interstitial markings. Elevated right hemidiaphragm. Cardiomediastinal silhouette appears prominent, unchanged. Multilevel thoracic spondylosis. Patient's large body habitus. XR/XR chest 1V IMPRESSION: Consider pulmonary edema in the correct clinical settings. Elevated right hemidiaphragm. Right phrenic paralysis versus paresi should be considered. Electronically signed by: Dhruv Moreno MD 11/17/2024 09:14 AM [facility]
--- NOTE | 2024-11-17 07:48 | ED.GENADULT ---
HPI - General Adult General Chief complaint: Dyspnea Stated complaint: SOB Time Seen by Provider: 11/17/24 07:48 History of Present Illness ED Provider: Julian RAY narrative: The patient is a 54-year-old female who has been having worsening shortness of breath over the last 2 days. The patient has a history of multiple medical problems including coronary disease with a previous anterior wall STEMI in 2014. According to her last cardiology note from April of 2023 she has an EF of 45-50%. The patient reports that about 4 days ago she thought she was developing a cold. She developed a runny nose and a cough. She has also had worsening shortness of breath. The symptoms have been particularly worse over the last 2 days. She does not know if she has had a fever or not. She has had worsening swelling of her legs. No significant chest pain. She says that she has been prescribed insulin but does not take it. She lives alone. Related Data Home Medications ?Medication ?Instructions ?Recorded ?Confirmed aspirin 81 mg tablet,delayed 81 mg PO DAILY 09/18/20 11/17/24 release melatonin 3 mg tablet 3 mg PO BEDTIME 03/17/21 11/17/24 multivitamin with minerals-ferrous 1 tab PO DAILY 03/17/21 11/17/24 sulfate 4.5 mg iron tablet (One Daily Multivitamins with Minerals) hydroxyzine pamoate 25 mg capsule 25 mg PO BID 05/01/22 11/17/24 ergocalciferol (vitamin D2) 1,250 1,250 mcg PO SA 11/17/24 11/17/24 mcg (50,000 unit) capsule (Vitamin D2) metformin 500 mg tablet 500 mg PO DAILY 11/17/24 11/17/24 Previous Rx's ?Medication ?Instructions ?Recorded sertraline 100 mg tablet 100 mg PO DAILY #30 caps 12/13/20 blood-glucose meter (FreeStyle #1 ea 08/19/22 Lite Meter kit) lancets 28 gauge (FreeStyle #100 ea 11/14/22 Lancets) blood sugar diagnostic (FreeStyle #100 ea 06/04/23 Lite Strips) pen needle, diabetic 32 gauge x #50 ea 08/09/2332 (BD Ultra-Fine Gi Pen Needle) gabapentin 100 mg capsule 200 mg (2 x 100 mg) PO TID #180 01/18/24 caps pyridoxine (vitamin B6) 100 mg 100 mg PO DAILY 90 days #90 tabs 01/25/24 tablet omeprazole 40 mg capsule,delayed 40 mg PO DAILY #90 caps 03/29/24 release amlodipine 10 mg tablet 10 mg PO DAILY #30 tabs 05/02/24 hydrochlorothiazide 25 mg tablet 25 mg PO DAILY #90 tabs 05/13/24 atorvastatin 80 mg tablet 80 mg PO DAILY #30 tabs 07/08/24 albuterol sulfate 90 mcg/actuation 1 puff PO QID PRN for dyspnea #6.7 10/27/24 aerosol inhaler grams Allergies Allergy/AdvReac Type Severity Reaction Status Date / Time No Known Allergies Allergy Verified 11/17/24 08:04 Review of Systems Review of Systems: Yes all other systems are reviewed and are negative [facility] Past Medical History Medical History Pararenal urinoma Myocardial infarction COVID-19 vaccine series completed Nephrolithiasis Type 2 diabetes mellitus with morbid obesity Obesity (BMI 30-39.9) Depression Vitamin D deficiency GERD without esophagitis Coronary artery disease Benign essential hypertension Pure hypercholesterolemia Intertrigo Type 2 diabetes mellitus with diabetic chronic kidney disease High blood pressure 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 Necrotizing fasciitis Surgical History History of surgery History of surgery Hx of cystoscopy History of breast lump/mass excision (~03/2017) History of heart artery stent (~09/2015) History of arthroscopy of left knee (~12/2011) Family History Family History Father Alzheimer's dementia Social History Social History Household Members: Other Household Members Other:: Roommate Housing: House Do you presently have visiting nurse or other home services: Yes Alcohol intake: former Patient Tobacco Use Status: Current everyday Tobacco user Tobacco use type: Cigarette Cigarette Packs Per Day: 1 Cigarettes Per Day: 11 Years Smoked: 30 +/- Smoked in Last 30 Days: Yes e-Cigarette/Vaping Use: Former Use Second Hand Smoke Exposure: Yes Use of substances other than those prescribed or required for medical reasons: No Substance Use Type: Marijuana Advance Directives: Yes Advance Directives on File: Yes Advance Directives Date on File: 07/23/22 Do you have a plan to hurt others: No Plan Patient : No service: No Current occupational status: disabled Cognitive needs: No Hearing needs: No Vision needs: Yes Physical Exam ED Vital Signs: Vital Signs - 24 hr 11/17/24 08:02 11/17/24 08:12 11/17/24 08:13 Temperature 97.7 F Pulse Rate 139 H 142 H Pulse Rate [Left Apical] Respiratory Rate 26 H 20 38 H Blood Pressure 130/93 H Pulse Oximetry 94 Oxygen Delivery Method CPAP Oxygen Flow Rate 11/17/24 11:13 11/17/24 11:34 11/17/24 11:36 Temperature 97.8 F Pulse Rate 139 H 139 H Pulse Rate [Left Apical] Respiratory Rate 28 H Blood Pressure 142/102 H 142/102 H 142/102 H Pulse Oximetry 96 Oxygen Delivery Method CPAP Oxygen Flow Rate 6 11/17/24 11:47 11/17/24 13:10 11/17/24 13:34 Temperature 97.8 F Pulse Rate 147 H 117 H Pulse Rate [Left Apical] 134 H Respiratory Rate 32 H Blood Pressure 158/96 H 135/91 H Pulse Oximetry 96 Oxygen Delivery Method High Flow Nasal Cannula Oxygen Flow Rate 6 11/17/24 16:00 Temperature 97.9 F Pulse Rate 103 H Pulse Rate [Left Apical] Respiratory Rate 18 Blood Pressure 158/97 H Pulse Oximetry 96 Oxygen Delivery Method High Flow Nasal Cannula Oxygen Flow Rate 6 BMI result Body Mass Index 33.6 Const Other: The patient is a chronically ill-appearing 54-year-old who was short of breath on arrival. HENMT Other: Face is symmetrical. Mucous membranes moist. Eyes General: appearance normal, both eyes and all related structures Neck Other: The patient had a very fleshy neck and it was impossible to evaluate reliably for JVD. Normal range of motion Resp Other: The patient is tachypneic. There crackles bilaterally. Also some wheezes Cardio Other: The patient had an irregular rate and rhythm with no distinct murmur. GI Other: Abdomen is soft and nontender Skin Other: Skin is pale and dry Neuro Other: The patient was awake and alert. Cranial nerves are intact. She moves her extremities symmetrically. No focal neurological deficit. Extrem Other: 2+ edema of the lower legs. Medications Administered Discontinued Medications Generic Name Dose Route Start Last Admin Trade Name Chuyq PRN Reason Stop Dose Admin Levalbuterol HCl 5 mg/ 0 mg 11/17/24 08:05 11/17/24 08:12 Ipratropium Mccleary 0.5 mg INHALE 11/17/24 08:06 1 dose ONCE ONE Administration Diltiazem HCl 15 mg 11/17/24 09:11 11/17/24 11:34 Diltiazem Hcl 50 Mg/10 Ml Vial IVPUSH 11/17/24 09:12 15 mg STAT STA Administration Furosemide 40 mg 11/17/24 09:07 11/17/24 11:36 Furosemide 40 Mg/4 Ml Vial IVPUSH 11/17/24 09:08 40 mg STAT STA Administration Protocol Potassium Chloride 10 meq in 100 mls @ 100 mls/hr 11/17/24 08:45 11/17/24 13:07 Potassium Chloride/H20 IV 11/17/24 12:44 Infused Q1H DENNIS Infusion Insulin Human Regular 10 unit 11/17/24 14:45 11/17/24 15:14 Insulin Regular, Human 100 Unit/Ml 10 Ml Vial IVPUSH 11/17/24 14:46 10 unit ONCE ONE Administration Metoprolol Tartrate 5 mg 11/17/24 12:10 11/17/24 13:11 Metoprolol Tartrate 5 Mg/5 Ml Vial IVPUSH 11/17/24 12:11 5 mg ONCE ONE Administration Protocol Metoprolol Tartrate 25 mg 11/17/24 12:44 11/17/24 13:10 Metoprolol Tartrate 25 Mg Tablet PO 11/17/24 12:45 25 mg ONCE ONE Administration Protocol Metoprolol Tartrate 5 mg 11/17/24 14:37 11/17/24 15:14 Metoprolol Tartrate 5 Mg/5 Ml Vial IVPUSH 11/17/24 14:38 5 mg ONCE ONE Administration Protocol Nitroglycerin 1 inch 11/17/24 12:10 11/17/24 12:30 Nitroglycerin 2 % Oint 1 Gm Packet TRANSDERMA 11/17/24 12:11 1 inch ONCE ONE Administration Oseltamivir Phosphate 75 mg 11/17/24 12:44 11/17/24 13:11 Oseltamivir Phosphate 75 Mg Capsule PO 11/17/24 12:45 75 mg ONCE ONE Administration Potassium Chloride 40 meq 11/17/24 08:43 11/17/24 09:49 Potassium Chloride Er 20 Meq Tab.Er.Prt PO 11/17/24 08:44 40 meq ONCE ONE Administration Potassium Chloride 40 meq 11/17/24 12:12 11/17/24 12:30 Potassium Chloride Packet 20 Meq Packet PO 11/17/24 12:13 40 meq ONCE ONE Administration Medical Decision Making Medical Decision Making [facility] Narrative: The patient is a 54-year-old woman with a history of diabetes and coronary artery disease. She does not have a history of congestive heart failure and is not on diuretics. She also does not have a history of atrial fibrillation. She presents with shortness of breath response. She also presents with hyperglycemia. Her mental status was clear. Paramedics had placed her on CPAP. When she was 1st here she was placed on BiPAP but she tolerated it poorly and did not stay on it for long. Her physical exam in her chest x-ray consistent with congestive heart failure/pulmonary edema. She also has peripheral edema of the legs that she said has been getting worse over several weeks. The patient also described symptoms of an upper respiratory infection and is testing positive for influenza a today. She has metabolic derangements that include hyperglycemia with a blood sugar in the 600s and hypokalemia with a potassium of 2.7. IV access was very difficult. She required ultrasound-guided IVs. The patient was initially placed on BiPAP but would not tolerate it and so she was put on 6 L nasal cannula. She was given updrafts. She was given supplemental potassium both IV and oral. IV access was established with difficulty and she was given 1st a dose of diltiazem and furosemide. Later she was also given both oral and IV metoprolol because of her ongoing atrial fibrillation with a rapid ventricular response. She was given oseltamivir because of her influenza A. I consulted Cardiology. Cardiology came to see the patient and made recommendations in the emergency department. The patient is potassium and blood sugar had to be improved before she could be accepted to the medical floor as did her heart rate. Therefore the patient was also given IV insulin in addition to oral and IV potassium and several doses of IV metoprolol and oral metoprolol. She was also given nitro paste. Ultimately her vital signs and her laboratory values improved to the point where admission to the medical floor seemed appropriate and she was hospitalized. Lab Data 11/17/24 08:15 11/17/24 13:56 Labs: Lab Results 11/17/24 11/17/24 11/17/24 Range/Units 08:15 08:18 13:56 WBC 14.7 H (4.8-10.8) X10*3/uL RBC 4.44 (4.20-5.50) X10*6/uL Hgb 12.7 (12.0-16.0) g/dl Hct 37.7 (37.0-47.0) % MCV 84.9 (80.0-98.0) fL MCH 28.6 (27.0-33.0) pg MCHC 33.7 (31.0-35.0) g/dl RDW 12.8 (11.0-16.0) % Plt Count 318 (160-400) X10*3/uL MPV 11.6 (9.4-12.3) fL Immature Gran % (Auto) 0.6 H (0.0-0.4) % Neut % (Auto) 88.9 H (45-73) % Lymph % (Auto) 6.5 L (20-40) % Andrew % (Auto) 3.8 (2-11) % Eos % (Auto) 0.0 (0-4) % Baso % (Auto) 0.2 (0-2) % Lymph # (Auto) 1.0 L (1.2-4.9) X10*3/uL Andrew # (Auto) 0.6 (0.1-1.2) X10*3/uL Eos # (Auto) 0.0 (0.0-0.4) X10*3/uL Baso # (Auto) 0.0 (0.0-0.2) X10*3/uL Abs Immat Gran (auto) 0.09 H (0.00-0.03) X10*3/uL Absolute Neuts (auto) 13.1 H (2.0-8.3) x10*3/uL Absolute Nucleated RBC 0.000 (0.0-0.012) X10*3/uL Nucleated RBC % (auto) 0.0 (0.0-0.2) /100WBC PT 12.0 (10.9-12.4) SEC INR 1.0 (0.9-1.1) VBG pH 7.31 L (7.32-7.43) VBG pCO2 43 mmHg VBG pO2 58 mmHg VBG HCO3 22 (22-26) mmol/L VBG O2 Saturation 82.0 % VBG Base Excess -3.9 mmol/L Sodium 133 L 134 L (135-145) mmol/L Potassium 2.7 L* 4.3 D (3.3-5.1) mmol/L Chloride 101 103 (96-108) mmol/L Carbon Dioxide 21 L 20 L (22-29) mmol/L Anion Gap 14 15 (12-20) BUN 29 H 31 H (9-16) mg/dL Creatinine 1.87 H 1.76 H (0.5-1.4) mg/dL Estim Creat Clear Calc 36.2 38.5 Estimated GFR 28 30 POC Glucose (60-115) mg/dL Random Glucose 685 H* 622 H* (60-115) mg/dL Lactic Acid 1.9 (0.5-2.0) mmol/L Calcium 8.8 D 8.8 (8.4-10.2) mg/dL Magnesium 1.8 (1.6-2.6) mg/dL Total Bilirubin 0.2 (0.0-1.0) mg/dL Direct Bilirubin < 0.2 (0.0-0.5) mg/dL AST 18 (5-31) U/L ALT 17 (0-31) U/L Alkaline Phosphatase 131 H (39-117) U/L Troponin I High Sens 43.5 H 45.5 H (<3.5-17.0) ng/L C-Reactive Protein 13.64 H (< or = 0.50) mg/dL B-Natriuretic Peptide 641 H (<100) pg/mL Total Protein 7.1 (6.5-8.0) g/dL Albumin 3.0 L (3.5-5.0) g/dL Urine Color Yellow Urine Appearance Clear Urine pH 6.5 (5.0-9.0) Ur Specific [place] >= 1.030 H (1.005-1.025) Urine Protein >=1000 (4+) H (Neg-Trace) mg/dL Urine Glucose (UA) >=1000 H (Negative) mg/dL Urine Ketones Negative (Negative) mg/dL Urine Blood Small (1+) H (Negative) Urine Nitrite Negative (Negative) Ur Leukocyte Esterase Negative (Negative) Urine RBC 3-5 H (0-2) /HPF Urine WBC 0-5 (0-5) /HPF Ur Squamous Epith Cells 3-5 (0-2) /HPF Urine Bacteria None Seen (None Seen) Hyaline Casts 0-2 (0-2) /LPF Influenza Type A (PCR) POSITIVE A (Negative) Influenza Type B (PCR) NEGATIVE (Negative) RSV RNA Qual (PCR) NEGATIVE (Negative) SARS-CoV-2 RNA (RT-PCR) NEGATIVE (Negative) 11/17/24 11/17/24 Range/Units 15:39 17:33 WBC (4.8-10.8) X10*3/uL RBC (4.20-5.50) X10*6/uL Hgb (12.0-16.0) g/dl Hct (37.0-47.0) % MCV (80.0-98.0) fL MCH (27.0-33.0) pg MCHC (31.0-35.0) g/dl RDW (11.0-16.0) % Plt Count (160-400) X10*3/uL MPV (9.4-12.3) fL Immature Gran % (Auto) (0.0-0.4) % Neut % (Auto) (45-73) % Lymph % (Auto) (20-40) % Andrew % (Auto) (2-11) % Eos % (Auto) (0-4) % Baso % (Auto) (0-2) % Lymph # (Auto) (1.2-4.9) X10*3/uL Andrew # (Auto) (0.1-1.2) X10*3/uL Eos # (Auto) (0.0-0.4) X10*3/uL Baso # (Auto) (0.0-0.2) X10*3/uL Abs Immat Gran (auto) (0.00-0.03) X10*3/uL Absolute Neuts (auto) (2.0-8.3) x10*3/uL Absolute Nucleated RBC (0.0-0.012) X10*3/uL Nucleated RBC % (auto) (0.0-0.2) /100WBC PT (10.9-12.4) SEC INR (0.9-1.1) VBG pH (7.32-7.43) VBG pCO2 mmHg VBG pO2 mmHg VBG HCO3 (22-26) mmol/L VBG O2 Saturation % VBG Base Excess mmol/L Sodium (135-145) mmol/L Potassium (3.3-5.1) mmol/L Chloride (96-108) mmol/L Carbon Dioxide (22-29) mmol/L Anion Gap (12-20) BUN (9-16) mg/dL Creatinine (0.5-1.4) mg/dL Estim Creat Clear Calc Estimated GFR POC Glucose 436 H* 293 H (60-115) mg/dL Random Glucose (60-115) mg/dL Lactic Acid (0.5-2.0) mmol/L Calcium (8.4-10.2) mg/dL Magnesium (1.6-2.6) mg/dL Total Bilirubin (0.0-1.0) mg/dL Direct Bilirubin (0.0-0.5) mg/dL AST (5-31) U/L ALT (0-31) U/L Alkaline Phosphatase (39-117) U/L Troponin I High Sens (<3.5-17.0) ng/L C-Reactive Protein (< or = 0.50) mg/dL B-Natriuretic Peptide (<100) pg/mL Total Protein (6.5-8.0) g/dL Albumin (3.5-5.0) g/dL Urine Color Urine Appearance Urine pH (5.0-9.0) Ur Specific [place] (1.005-1.025) Urine Protein (Neg-Trace) mg/dL Urine Glucose (UA) (Negative) mg/dL Urine Ketones (Negative) mg/dL Urine Blood (Negative) Urine Nitrite (Negative) Ur Leukocyte Esterase (Negative) Urine RBC (0-2) /HPF Urine WBC (0-5) /HPF Ur Squamous Epith Cells (0-2) /HPF Urine Bacteria (None Seen) Hyaline Casts (0-2) /LPF Influenza Type A (PCR) (Negative) Influenza Type B (PCR) (Negative) RSV RNA Qual (PCR) (Negative) SARS-CoV-2 RNA (RT-PCR) (Negative) Critical Care Time Critical Care Time Critical Care Time: Yes Total Critical Care Time: 75 Attestation: The patient was critically ill with a high probability of imminent or life-threatening deterioration. ?I spent greater than 30 minutes of discontinuous time evaluating the patient, delivering critical care at the bedside, discussing evaluating data with consultants. ?Critical care time does not include time spent performing separately billable procedures or teaching. ?Time spent performing critical care with 35 minutes. Discharge Plan Discharge Clinical Impression: Influenza A, Congestive heart failure, Atrial fibrillation with rapid ventricular response, Hypokalemia, Hyperglycemia Patient Disposition: Admitted As Inpatient
--- NOTE | 2024-11-17 07:52 | ECG_ITS ---
Test Reason : dyspnea Blood Pressure : */* mmHG Vent. Rate : 137 BPM Atrial Rate : * BPM P-R Int : * ms QRS Dur : 90 ms QT Int : 250 ms P-R-T Axes : * -4 147 degrees QTcB Int : 377 ms Atrial fibrillation with rapid ventricular response Anterior infarct (cited on or before 22-Sep-2015) ST & T wave abnormality, consider lateral ischemia Abnormal ECG When compared with ECG of 23-Jul-2022 09:25, Atrial fibrillation has replaced Sinus rhythm Vent. rate has increased by 59 bpm Nonspecific T wave abnormality now evident in Inferior leads T wave inversion now evident in Lateral leads Referred By: Ti Jordan Electronically Signed By: HAN KENNEDY MD
[2024-11-17] MEDS: levalbuterol HCL 5 MG, Ipratropium Bromide 0.5 MG INHALE (08:12)
[2024-11-17 08:17] LABS: MANUAL DIFF FLAG NO
[2024-11-17 08:20] LABS: Basophils Percent Auto 0.2 % (0-2); Hematocrit 37.7 % (37.0-47.0); Hemoglobin 12.7 g/dl (12.0-16.0); Imm Gran Abs Auto 0.09 X10*3/uL (0.00-0.03); Imm Gran Pct Auto 0.6 % (0.0-0.4); Lymphocytes Percent Auto 6.5 % (20-40); Mean Corpuscular HGB Conc 33.7 g/dl (31.0-35.0); Mean Corpuscular Hemoglobin 28.6 pg (27.0-33.0); Mean Corpuscular Volume 84.9 fL (80.0-98.0); Mean Platelet Volume 11.6 fL (9.4-12.3); Monocytes Absolute Auto 0.6 X10*3/uL (0.1-1.2); Monocytes Percent Auto 3.8 % (2-11); Neutrophils Absolute Auto 13.1 x10*3/uL (2.0-8.3); Neutrophils Percent Auto 88.9 % (45-73); Platelet Count 318 X10*3/uL (160-400); Red Blood Count 4.44 X10*6/uL (4.20-5.50); Red Cell Distribution Width 12.8 % (11.0-16.0); White Blood Count 14.7 X10*3/uL (4.8-10.8)
[2024-11-17 08:21] LABS: Venous Blood Gas Refer to POC result
[2024-11-17 08:23] LABS: VBG Base Excess -3.9 mmol/L; VBG HCO3 22 mmol/L (22-26); VBG pCO2 43 mmHg; VBG pH 7.31 (7.32-7.43); VBG pO2 58 mmHg
[2024-11-17 08:41] LABS: B Type Natriuretic Peptide 641 pg/mL (<100)
[2024-11-17 08:42] LABS: Troponin-I High Sensitivity 43.5 ng/L (<3.5-17.0)
[2024-11-17 08:44] LABS: Alanine Aminotransferase 17 U/L (0-31); Alkaline Phosphatase 131 U/L (39-117); Anion Gap 14 (12-20); Aspartate Amino Transferase 18 U/L (5-31); Bilirubin Direct < 0.2 mg/dL (0.0-0.5); Bilirubin Total 0.2 mg/dL (0.0-1.0); Blood Urea Nitrogen 29 mg/dL (9-16); C Reactive Protein 13.64 mg/dL (< or = 0.50); Calcium 8.8 mg/dL (8.4-10.2); Carbon Dioxide 21 mmol/L (22-29); Chloride 101 mmol/L (96-108); Creatinine Clr Calc Pharmacy 36.2; Estimated Glomerular Filt Rate 28; Glucose Random 685 mg/dL (60-115); Magnesium 1.8 mg/dL (1.6-2.6); Potassium 2.7 mmol/L (3.3-5.1); Sodium 133 mmol/L (135-145); Total Protein 7.1 g/dL (6.5-8.0)
[2024-11-17 09:08] LABS: Influenza A PCR POSITIVE (Negative); Influenza B PCR NEGATIVE (Negative); Resp Syncy Virus RNA Qual PCR NEGATIVE (Negative); SARS COV2 PCR INHOUSE NEGATIVE (Negative)
--- NOTE | 2024-11-17 09:39 | PC.NURSE ---
pt a&ox3, lung exp wheezing and course crackle bll- pt was tripoding upon arrival and speaking short sentences pt placed on cpap upon arrival and has since been removed by RT, labs drawn- pt currently speaking in longer sentences, nasal swab performed, ekg performed, track repair laborer applied-afib on monitor. pt difficult stick, multiple attempts by this nurse and charge to obtain line, atempted to get ahold of asad sangita to do ultrasound which she is not here today- provider is aware we need access. pt came back flu positive- droplet precautions placed, call espinal within reach, plan of care ongoing, will administer medications when iv has been obtained
[2024-11-17] MEDS: Potassium Chloride ER 20 MEQ TAB.ER.PRT 40 MEQ PO (09:49)
--- NOTE | 2024-11-17 09:50 | PC.NURSE ---
pt medicated with po meds until iv access has been obtained
--- NOTE | 2024-11-17 11:16 | PC.NURSE ---
additional ed provider attempting iv access as prior was unsuccessful with US
[2024-11-17] MEDS: dilTIAZem HCL 50 MG/10 ML VIAL 15 MG IVPUSH (11:34)
[2024-11-17] MEDS: Furosemide 40 MG/4 ML VIAL IVPUSH (11:36)
[2024-11-17] MEDS: Potassium Chloride/H20 10 MEQ/100 ML PIGGYBACK 100 MEQ IV (11:39)
--- NOTE | 2024-11-17 11:45 | PC.NURSE ---
iv was obtained via ultrasound by provider dinesh 20 to lt ac.
--- NOTE | 2024-11-17 12:08 | PM.CNCAR ---
History of Present Illness History of Present Illness Date of Service: 11/17/24 Requesting physician: Ti Jordan Chief complaint: PAF, CHF. Influenza Narrative: [age] year female with known history of coronary artery disease with previous anterior wall MA in 2015 and mild cardiomyopathy, hypertension, diabetes, hyperlipidemia and obesity presenting with shortness of breath and AFib with RVR. She is influenza positive. She was getting cold-like symptoms for few days. Quite tachycardic currently. She is short of breath. Denying any palpitations. No chest discomfort. Previously was not known to have atrial fibrillation. Takes carvedilol 25 mg twice a day at home. She was given some Cardizem in the ER. Currently heart rate 130s to 140s. 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 Necrotizing fasciitis Family History Family History Father Alzheimer's dementia Surgical History Surgical History History of surgery History of surgery Hx of cystoscopy History of breast lump/mass excision (~03/2017) History of heart artery stent (~09/2015) History of arthroscopy of left knee (~12/2011) Social History Social History Household Members: Other Household Members Other:: Roommate Housing: House Do you presently have visiting nurse or other home services: Yes Alcohol intake: former Patient Tobacco Use Status: Current everyday Tobacco user Tobacco use type: Cigarette Cigarette Packs Per Day: 1 Cigarettes Per Day: 11 Years Smoked: 30 +/- Smoked in Last 30 Days: Yes e-Cigarette/Vaping Use: Former Use Second Hand Smoke Exposure: Yes Use of substances other than those prescribed or required for medical reasons: No Substance Use Type: Marijuana Advance Directives: Yes Advance Directives on File: Yes Advance Directives Date on File: 07/23/22 Do you have a plan to hurt others: No Plan Patient : No service: No Current occupational status: disabled Cognitive needs: No Hearing needs: No Vision needs: Yes Meds Allergies Allergy/AdvReac Type Severity Reaction Status Date / Time No Known Allergies Allergy Verified 11/17/24 08:04 Active Medications: Current Medications Potassium Chloride (Potassium Chloride/H20) 10 meq in 100 mls @ 100 mls/hr IV Q1H DENNIS Stop: 11/17/24 12:44 Last Admin: 11/17/24 11:39 Dose: 100 mls/hr Home Medications ?Medication ?Instructions ?Recorded ?Confirmed ?Last Taken ?Type aspirin 81 mg tablet,delayed 81 mg PO DAILY 09/18/20 07/28/23 09/07/22 History release melatonin 3 mg tablet 3 mg PO BEDTIME 03/17/21 07/28/23 09/07/22 History multivitamin with minerals-ferrous 1 tab PO DAILY 03/17/21 07/28/23 09/07/22 History sulfate 4.5 mg iron tablet (One Daily Multivitamins with Minerals) hydroxyzine pamoate 25 mg capsule 25 mg PO BID@0900,1700 05/01/22 07/28/23 09/07/22 History Physical Exam Vital Signs: Vital Signs: Last Vital Signs Temp 97.8 F 11/17/24 11:13 Pulse 134 H 11/17/24 11:47 Resp 28 H 11/17/24 11:13 BP 142/102 H 11/17/24 11:36 Pulse Ox 96 11/17/24 11:13 O2 Del Method CPAP 11/17/24 11:13 O2 Flow Rate 6 11/17/24 11:13 BMI result Body Mass Index 33.6 GENERAL APPEARANCE: Short of breath, on supplemental oxygen. SKIN: no suspicious lesions, warm and dry. HEART: no murmurs, irregular rate and rhythm. LUNGS: Bibasilar crackles. ABDOMEN: soft, nontender. EXTREMITIES: no edema. PERIPHERAL PULSES: equal. NEUROLOGIC: No gross deficits, AAO X 3 Objective Labs and Meds 11/17/24 08:15 11/17/24 08:15 Lab results: Laboratory Results - last 24 hr 11/17/24 11/17/24 08:15 08:18 WBC 14.7 H RBC 4.44 Hgb 12.7 Hct 37.7 MCV 84.9 MCH 28.6 MCHC 33.7 RDW 12.8 Plt Count 318 MPV 11.6 Immature Gran % (Auto) 0.6 H Neut % (Auto) 88.9 H Lymph % (Auto) 6.5 L Hickman % (Auto) 3.8 Eos % (Auto) 0.0 Baso % (Auto) 0.2 Lymph # (Auto) 1.0 L Hickman # (Auto) 0.6 Eos # (Auto) 0.0 Baso # (Auto) 0.0 Abs Immat Gran (auto) 0.09 H Absolute Neuts (auto) 13.1 H Absolute Nucleated RBC 0.000 Nucleated RBC % (auto) 0.0 PT 12.0 INR 1.0 VBG pH 7.31 L VBG pCO2 43 VBG pO2 58 VBG HCO3 22 VBG O2 Saturation 82.0 VBG Base Excess -3.9 Sodium 133 L Potassium 2.7 L* Chloride 101 Carbon Dioxide 21 L Anion Gap 14 BUN 29 H Creatinine 1.87 H Estim Creat Clear Calc 36.2 Estimated GFR 28 Random Glucose 685 H* Calcium 8.8 D Magnesium 1.8 Total Bilirubin 0.2 Direct Bilirubin < 0.2 AST 18 ALT 17 Alkaline Phosphatase 131 H Troponin I High Sens 43.5 H C-Reactive Protein 13.64 H B-Natriuretic Peptide 641 H Total Protein 7.1 Albumin 3.0 L Influenza Type A (PCR) POSITIVE A Influenza Type B (PCR) NEGATIVE RSV RNA Qual (PCR) NEGATIVE SARS-CoV-2 RNA (RT-PCR) NEGATIVE Imaging Radiologist's impression: Impressions Chest X-Ray 11/17/24 08:45 IMPRESSION: Consider pulmonary edema in the correct clinical settings. Elevated right hemidiaphragm. Right phrenic paralysis versus paresi should be considered. Electronically signed by: Dhruv Moreno MD 11/17/2024 09:14 AM [facility] Assessment and Plan (1) PAF (paroxysmal atrial fibrillation): Status: Acute (2) Acute diastolic (congestive) heart failure: Status: Acute (3) Influenza: Status: Acute Plan 54 year female presenting with AFib with RVR and congestive heart failure. She has background of coronary artery disease. Currently denying any anginal symptoms. She is influenza positive. Give her 5 mg IV metoprolol and restart home dose of carvedilol. Diurese with 40 mg IV Lasix. Monitor electrolytes closely. Avoid hydrochlorothiazide because she is hypokalemic and this drug should be discontinued at discharge. Start Eliquis 5 mg twice a day. Monitor I's and O's and electrolytes closely. Echocardiography as heart rate is better controlled. Thank you for allowing me to participate in the care of your patient. Please feel free to contact me if you have any questions. Procedures Date of Service Date of Service: 11/17/24
--- NOTE | 2024-11-17 12:25 | PC.NURSE ---
patients IV infiltrated, provider was notified, IV potassium has been stopped, provider to assess for another iv site.
[2024-11-17] MEDS: Potassium Chloride Packet 20 MEQ PACKET 40 MEQ PO (12:30)
[2024-11-17] MEDS: Nitroglycerin 2 % Oint 1 GM Packet 1 INCH TRANSDERMA (12:30)
--- NOTE | 2024-11-17 12:37 | PC.NURSE ---
pt a&ox3, rn cardiac rehab intact afib 130s, pt 95% on oxygen. provider in room to look for iv access in ej, pt temporarily placed on oxymask 13L to lay patient back.
--- NOTE | 2024-11-17 13:08 | PC.NURSE ---
additional us line obtained to sadie
[2024-11-17] MEDS: Metoprolol Tartrate 25 MG TABLET PO (13:10)
[2024-11-17] MEDS: Oseltamivir Phosphate 75 MG CAPSULE PO (13:11)
[2024-11-17] MEDS: Metoprolol Tartrate 5 MG/5 ML VIAL IVPUSH ×2 (13:11→15:14)
--- NOTE | 2024-11-17 13:30 | PC.NURSE ---
per provider request IV potassium is being held as pt has delicate IV access which blow easily, patient currently has access in RUE placed again by ultrasound. pt took po potassium and she was also medicated per order with ivp metoprolol and po metoprolol per provider request to give both along with tamiflu. pt continues to speak in full sentences, youth nutritional monitor remains afib, call espinal within reach, plan of care ongoing
[2024-11-17 14:09] LABS: Appearance Urine Clear; Color Urine Yellow; Glucose Urine UA >=1000 mg/dL (Negative); Leukocyte Esterase Urine Negative (Negative); Nitrite Urine Negative (Negative); PH 6.5 (5.0-9.0); Specific Gravity - Urine >= 1.030 (1.005-1.025); UMIC TRIGGER UACC YES; Urine Blood Small (1+) (Negative); Urine Ketones Negative (Negative); Urine Protein >=1000 (4+) mg/dL (Neg-Trace)
[2024-11-17 14:18] LABS: Bacteria Urine None Seen (None Seen); Hyaline Casts Urine 0-2 /LPF (0-2); WBC Urine 0-5 /HPF (0-5)
[2024-11-17 14:24] LABS: Lactic Acid 1.9 mmol/L (0.5-2.0)
[2024-11-17 14:31] LABS: Troponin-I High Sensitivity 45.5 ng/L (<3.5-17.0)
[2024-11-17 14:35] LABS: Anion Gap 15 (12-20); Blood Urea Nitrogen 31 mg/dL (9-16); Calcium 8.8 mg/dL (8.4-10.2); Carbon Dioxide 20 mmol/L (22-29); Chloride 103 mmol/L (96-108); Creatinine Clr Calc Pharmacy 38.5; Estimated Glomerular Filt Rate 30; Glucose Random 622 mg/dL (60-115); Potassium 4.3 mmol/L (3.3-5.1); Sodium 134 mmol/L (135-145)
[2024-11-17] MEDS: Insulin Regular, Human 100 UNIT/ML 10 ML VIAL 10 UNIT IVPUSH ×2 (15:14→23:39)
[2024-11-17 15:42] LABS: Glucose, Whole Blood 436 mg/dL (60-115)
--- NOTE | 2024-11-17 16:24 | P.HPHOSP_ITS ---
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 Some chills but no measured fever. Occasional palpitations, as well as diarrhea for the past few days. No nausea, vomiting, or abdominal pain. Pt has attempted to keep up with fluids, but has not been eating much. Has had increased lower leg edema for the past 1-2 weeks. Pt has been using her home inhalers to no effect. Is not on home O2. Currently still smoking around half a pack daily. Pt also reports she is supposed to be on insulin for her diabetes, but stopped both checking her sugars and using insulin on her own over a year ago. Pt denies a past hx of atrial fibrillation. Denies chest pain pressure. In the ED pt was tachycardic to 142, tachypneic up to 38, hypertensive as high as 158/97. Initially satting in the 80s and placed on CPAP by EMS, eventually transitioned to high-flow. Labs were significant for testing positive for flu, leukocytosis 14.7, sodium 133, potassium 2.7, creatinine 1.87 (baseline around 0.90), random glucose 685, alk-phos 131, initial troponin 43.5 with repeat 45.5, CRP 13.64, and BNP 641. UA negative for UTI. CXR showed likely pulmonary edema, as well as elevated right hemidiaphragm concerning for right phrenic paralysis. EKG demonstrated atrial fibrillation with RVR of 137. Pt was treated with Xopenex, potassium chloride IV and p.o., nitroglycerin, diltiazem 15 mg IV, metoprolol 5 mg IV x2 and 25 mg p.o., Tamiflu, and regular insulin 10 units. Pt will be admitted to the hospital for multiple significant issues, including acute hypoxic respiratory failure, AFib with RVR, acute CHF exacerbation, acute COPD exacerbation, hyperglycemia, and MELODIE, all in the setting of acute influenza infection. 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 Necrotizing fasciitis Family History Father Alzheimer's dementia Surgical History History of surgery History of surgery Hx of cystoscopy History of breast lump/mass excision (~03/2017) History of heart artery stent (~09/2015) History of arthroscopy of left knee (~12/2011) Social History Household Members: Other Household Members Other:: Roommate Housing: House Do you presently have visiting nurse or other home services: Yes Alcohol intake: former Patient Tobacco Use Status: Current everyday Tobacco user Tobacco use type: Cigarette Cigarette Packs Per Day: 1 Cigarettes Per Day: 11 Years Smoked: 30 +/- Smoked in Last 30 Days: Yes e-Cigarette/Vaping Use: Former Use Second Hand Smoke Exposure: Yes Use of substances other than those prescribed or required for medical reasons: No Substance Use Type: Marijuana Advance Directives: Yes Advance Directives on File: Yes Advance Directives Date on File: 07/23/22 Do you have a plan to hurt others: No Plan Patient : No service: No Current occupational status: disabled Cognitive needs: No Hearing needs: No Vision needs: Yes Meds Allergies Allergy/AdvReac Type Severity Reaction Status Date / Time No Known Allergies Allergy Verified 11/17/24 08:04 Home Medications ?Medication ?Instructions ?Recorded ?Confirmed ?Last Taken ?Type aspirin 81 mg tablet,delayed 81 mg PO DAILY 09/18/20 11/17/24 09/07/22 History release melatonin 3 mg tablet 3 mg PO BEDTIME 03/17/21 11/17/24 09/07/22 History multivitamin with minerals-ferrous 1 tab PO DAILY 03/17/21 11/17/24 09/07/22 History sulfate 4.5 mg iron tablet (One Daily Multivitamins with Minerals) hydroxyzine pamoate 25 mg capsule 25 mg PO BID 05/01/22 11/17/24 09/07/22 History ergocalciferol (vitamin D2) 1,250 1,250 mcg PO SA 11/17/24 11/17/24 Unknown History mcg (50,000 unit) capsule (Vitamin D2) metformin 500 mg tablet 500 mg PO DAILY 11/17/24 11/17/24 Unknown History Physical Exam 2 Vital Signs and Narrative: Vital Signs: Last Vital Signs Temp 97.9 F 11/17/24 16:00 Pulse 103 H 11/17/24 16:00 Resp 18 11/17/24 16:00 BP 158/97 H 11/17/24 16:00 Pulse Ox 96 11/17/24 16:00 O2 Del Method High Flow Nasal C annula 11/17/24 16:00 O2 Flow Rate 6 11/17/24 16:00 BMI result Body Mass Index 33.6 General: AOx3, no acute distress. Resp: Bilateral expiratory rhonchi. CVS: Irregularly irregular rhythm, tachycardic GI: +BS, NT, no distention Skin: Warm, dry Neuro: Cranial nerves II-XII grossly intact bilaterally. Motor grossly intact bilaterally Extremities: 3+ bilateral pitting edema Psych: Appropriate affect Results Labs 11/17/24 08:15 11/17/24 13:56 Labs: Laboratory Results - last 24 hr 11/17/24 11/17/24 11/17/24 08:15 08:18 13:56 MCV 84.9 MCH 28.6 MCHC 33.7 RDW 12.8 Plt Count 318 MPV 11.6 Immature Gran % (Auto) 0.6 H Neut % (Auto) 88.9 H Lymph % (Auto) 6.5 L [place] % (Auto) 3.8 Eos % (Auto) 0.0 Baso % (Auto) 0.2 Lymph # (Auto) 1.0 L [place] # (Auto) 0.6 Eos # (Auto) 0.0 Baso # (Auto) 0.0 Abs Immat Gran (auto) 0.09 H Absolute Neuts (auto) 13.1 H Absolute Nucleated RBC 0.000 Nucleated RBC % (auto) 0.0 PT 12.0 INR 1.0 VBG pH 7.31 L VBG pCO2 43 VBG pO2 58 VBG HCO3 22 VBG O2 Saturation 82.0 VBG Base Excess -3.9 Anion Gap 14 15 Estim Creat Clear Calc 36.2 38.5 Estimated GFR 28 30 POC Glucose Random Glucose 685 H* 622 H* Lactic Acid 1.9 Calcium 8.8 D 8.8 Magnesium 1.8 Total Bilirubin 0.2 Direct Bilirubin < 0.2 AST 18 ALT 17 Alkaline Phosphatase 131 H Troponin I High Sens 43.5 H 45.5 H C-Reactive Protein 13.64 H B-Natriuretic Peptide 641 H Total Protein 7.1 Albumin 3.0 L Urine Color Yellow Urine Appearance Clear Urine pH 6.5 Ur Specific [place] >= 1.030 H Urine Protein >=1000 (4+) H Urine Glucose (UA) >=1000 H Urine Ketones Negative Urine Blood Small (1+) H Urine Nitrite Negative Ur Leukocyte Esterase Negative Urine RBC 3-5 H Urine WBC 0-5 Ur Squamous Epith Cells 3-5 Urine Bacteria None Seen Hyaline Casts 0-2 Influenza Type A (PCR) POSITIVE A Influenza Type B (PCR) NEGATIVE RSV RNA Qual (PCR) NEGATIVE SARS-CoV-2 RNA (RT-PCR) NEGATIVE 11/17/24 15:39 MCV MCH MCHC RDW Plt Count MPV Immature Gran % (Auto) Neut % (Auto) Lymph % (Auto) [place] % (Auto) Eos % (Auto) Baso % (Auto) Lymph # (Auto) [place] # (Auto) Eos # (Auto) Baso # (Auto) Abs Immat Gran (auto) Absolute Neuts (auto) Absolute Nucleated RBC Nucleated RBC % (auto) PT INR VBG pH VBG pCO2 VBG pO2 VBG HCO3 VBG O2 Saturation VBG Base Excess Anion Gap Estim Creat Clear Calc Estimated GFR POC Glucose 436 H* Random Glucose Lactic Acid Calcium Magnesium Total Bilirubin Direct Bilirubin AST ALT Alkaline Phosphatase Troponin I High Sens C-Reactive Protein B-Natriuretic Peptide Total Protein Albumin Urine Color Urine Appearance Urine pH Ur Specific [place] Urine Protein Urine Glucose (UA) Urine Ketones Urine Blood Urine Nitrite Ur Leukocyte Esterase Urine RBC Urine WBC Ur Squamous Epith Cells Urine Bacteria Hyaline Casts Influenza Type A (PCR) Influenza Type B (PCR) RSV RNA Qual (PCR) SARS-CoV-2 RNA (RT-PCR) Imaging Radiologist's Impressions: Impressions Chest X-Ray 11/17/24 08:45 IMPRESSION: Consider pulmonary edema in the correct clinical settings. Elevated right hemidiaphragm. Right phrenic paralysis versus paresi should be considered. 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 Pt will be admitted to the hospital for multiple significant issues, including acute hypoxic respiratory failure, new onset AFib with RVR, acute CHF exacerbation, acute COPD exacerbation, hyperglycemia, and MELODIE, all in the setting of acute influenza infection. New onset AFib with RVR Likely multifactorial, in the setting of influenza infection as well as CHF and COPD exacerbations Pt received diltiazem 50 mg IV, metoprolol 5 mg IV x2, and metoprolol 25 p.o. in the ED Will restart carvedilol 25 mg b.i.d., which pt has apparently not been taking for some time Will start on Eliquis 5 mg p.o. b.i.d. Echocardiogram Cardiology consult Monitor on telemetry Acute CHF exacerbation Pt with SOB, CROSS, CXR showing pulmonary edema, elevated BNP above baseline, 3+ bilateral pitting edema Multifactorial: In the setting of new onset AFib with RVR, influenza infection, COPD exacerbation Will diurese with Lasix 40 mg IV daily Treat as above with carvedilol, echocardiogram, cardiology consult Monitor I/O, lytes, daily weights Acute hypoxic respiratory failure in the setting of COPD exacerbation from influenza infection Pt not on home O2, satting in 80s on RA, arrived on CPAP then transitioned to high-flow and then to 6 L NC Will treat with Solu-Medrol, Xopenex, and guaifenesin Titrate supplemental O2 >90, wean as tolerated Monitor respiratory status MELODIE Creatinine 1.87 at time of presentation, baseline 0.90 Likely cardiorenal in the setting of above Treat as above with diuretics Monitor creatinine Viral sepsis Tachycardia secondary to AFib with RVR, leukocytosis and tachypnea secondary to viral infection No indication for antibiotics at this time Treat as above Hypokalemia Likely secondary to reduced p.o. intake and GI losses while taking hydrochlorothiazide Pt is supplemented with potassium IV and p.o. in the ED Hold hydrochlorothiazide Follow potassium Hyperglycemia Pt with insulin-dependent type 2 diabetes, poorly controlled Apparently stopped checking sugars and using insulin over 1 year ago on her own Random glucose 685 at time of presentation Pt given regular insulin 10 units IV in the ED Hold metformin Will place on sliding scale insulin, diabetic diet Check A1c Elevated troponins Initial troponin 43.5 with repeat flat at 45.5 Pt asymptomatic, EKG without ischemic changes Likely type 2 in the setting of above Monitor on telemetry CAD Continue aspirin, statin HTN Continue amlodipine Hold hydrochlorothiazide due to hypokalemia Discontinue hydrochlorothiazide on discharge, per Cardiology recommendations GERD PPI Mood disorder Continue sertraline Full Code Attending:?Dr. Mirza DVT Prophylaxis: On Eliquis Pt will require a hospitalization of at least two nights for treatment of?m ultiple significant issues, including acute hypoxic respiratory failure, new onset AFib with RVR, acute CHF exacerbation, acute COPD exacerbation, hyperglycemia, and MELODIE, all in the setting of acute influenza infection. They require in hospital level of care for administration of IV diuretics, supplemental oxygen, breathing treatments, IV steroids, as well as specialist consultation with Cardiology and close monitoring of labs and cardiac function. Quality Stroke Does the patient have a stroke diagnosis?: No VTE Prior VTE?: No VTE Risk Level:: Medical - moderate - high VTE Device Contraindication: Treatment Not Indicated VTE Drug Contraindication: N/A - Med Ordered
--- NOTE | 2024-11-17 17:32 | PHA.MEDREC ---
Addendum entered by Yesy Sharp [facility] 11/17/24 17:55: REVIEWED Original Note: Pharmacy Consult ? Medication Reconciliation Pharmacy has completed the medication reconciliation. Spoke with patient and she confirmed her medications. Talking with her she said she has not taken her medications in a long time and is not compliant with them but confirmed the med rec with me, the patient states she is no longer taking insulin and when I asked how long it has been since she has had that she states it has been a real long time . I called [facility] and they were able to confirm the last fills for the medications. They confirmed Metformin 500mg and Hydroclorothiazide 25mg tabs were filled 11/16, Albuterol Sulfate 90mcg, Amlodipine 10mg, Hydroxyzine 25mg, Omeprazole 40mg, and Sertraline 100mg tabs were filled in October, Gabapentin 100mg and Vitamin D2 tabs were filled last 09/12 for 90 days. They stated the patient has not filled the Carvedilol 25mg tab since June for 90 days. They also could not find any recent claims for the patient filling any insulins.
[2024-11-17 17:38] LABS: Glucose, Whole Blood 293 mg/dL (60-115)
[2024-11-17] MEDS: levalbuterol HCL 3.75 MG, Ipratropium Bromide 0.5 MG INHALE (18:45)
[2024-11-17] MEDS: methylPREDNISolone Sod Succ 40 MG/ML VIAL IVPUSH (19:16)
[2024-11-17] MEDS: Apixaban 5 MG TABLET PO (19:16)
[2024-11-17] MEDS: Nicotine 14 MG PATCH.TD24 TRANSDERMA (19:16)
--- NOTE | 2024-11-17 20:24 | PC.NURSE ---
assisted to commode. sitting up on stretcher, no distress-- waiting for bed assignment.
[2024-11-17 21:00] LABS: Glucose, Whole Blood 463 mg/dL (60-115)
[2024-11-17] MEDS: Gabapentin 100 MG CAPSULE 200 MG PO (21:58)
[2024-11-17] MEDS: carvediloL 25 MG TABLET PO (21:59)
[2024-11-17] MEDS: hydrOXYzine HCL 25 MG TABLET PO (21:59)
[2024-11-17] MEDS: Insulin Lispro 100 UNIT/ML 3 ML VIAL SUBCUT (22:03)
[2024-11-17 22:52] LABS: Glucose, Whole Blood 465 mg/dL (60-115)
[2024-11-17 23:13] LABS: Glucose, Whole Blood 457 mg/dL (60-115)
[2024-11-17] MEDS: Insulin Glargine,Hum.rec.anlog 100 UNIT/ML 10 ML VIAL 15 UNIT SUBCUT (23:41)
[2024-11-18] VITALS (17 sets, daily range): BP systolic 101–147; BP diastolic 62–78; PULSE 40–105; RESP 15–30; TEMP 36.1–36.7; O2SAT 90–99; BMI 35.9
[2024-11-18 00:27] LABS: Glucose, Whole Blood 296 mg/dL (60-115)
--- NOTE | 2024-11-18 00:55 | PC.NURSE ---
assisted to bedside commode. blood glucose improved. no complaints or distress, continues with moist cough and remains on isolation for flu.
[2024-11-18] MEDS: guaiFEN/Codeine SF 200/20/10ML 10 ML LIQUID PO ×2 (04:55→22:42)
[2024-11-18 05:02] LABS: Glucose, Whole Blood 135 mg/dL (60-115)
[2024-11-18 05:26] LABS: Anion Gap 15 (12-20); Blood Urea Nitrogen 40 mg/dL (9-16); Calcium 9.1 mg/dL (8.4-10.2); Carbon Dioxide 20 mmol/L (22-29); Chloride 106 mmol/L (96-108); Estimated Glomerular Filt Rate 28; Glucose Random 128 mg/dL (60-115); Potassium 4.1 mmol/L (3.3-5.1); Sodium 137 mmol/L (135-145)
[2024-11-18] MEDS: Omeprazole 40 MG CAPSULE.DR PO (06:32)
[2024-11-18] MEDS: levalbuterol HCL 1.25 MG/3 ML VIAL.NEB INHALE ×4 (07:26→19:23)
[2024-11-18 07:28] LABS: Glucose, Whole Blood 150 mg/dL (60-115)
--- NOTE | 2024-11-18 07:30 | PC.NURSE ---
assumed care of patient at 0700, oxygen was not in patients nose, patient sat 85%. patient o2 turned up to 4lNC to obtain sat over 88%. patient is awake, alert and oriented x3, VSS.
[2024-11-18] MEDS: methylPREDNISolone Sod Succ 40 MG/ML VIAL IVPUSH ×2 (07:37→17:37)
[2024-11-18 08:06] LABS: Estimated Average Glucose 341 mg/dL; Hemoglobin A1C 416.5529 umol/L; Hemoglobin A1c % 13.5 % (<6.0); Total Hemoglobin (HGBA1C) 3351.6954 umol/L
--- NOTE | 2024-11-18 08:14 | HO.PM.IMPN ---
Subjective Subjective Date of Service: 11/18/24 Interval History: Being followed for atrial fibrillation with RVR and acute CHF/COPD exacerbation/COVID infection Patient feels better, complaining of shortness of breath Denies fever, no chills, no dizziness Remains in atrial fibrillation Review of Systems All other system reviewed and negative Physical Exam Vital Signs: Vital Signs: Last Vital Signs Temp 98 F 11/18/24 07:14 Pulse 93 11/18/24 07:26 Resp 20 11/18/24 07:26 BP 126/72 11/18/24 07:14 Pulse Ox 90 L 11/18/24 07:14 O2 Del Method Nasal Cannula 11/18/24 07:14 O2 Flow Rate 4 11/18/24 07:14 BMI result Body Mass Index 33.6 Objective Data Active Medications Acetaminophen (Acetaminophen 325 Mg Tablet) 650 mg PO Q6H PRN PRN Reason: Pain, Mild 1-3,fever,headache Amlodipine Besylate (Amlodipine Besylate 10 Mg Tablet) 10 mg PO DAILY [facility]; Protocol Apixaban (Apixaban 5 Mg Tablet) 5 mg PO BID [facility] Aspirin (Aspirin Enteric Coated 81 Mg Tablet.Dr) 81 mg PO DAILY [facility] Atorvastatin Calcium (Atorvastatin Calcium 80 Mg Tablet) 80 mg PO DAILY [facility] Calcium Carbonate (Calcium Carbonate 750 Mg Tab.Chew) 750 mg PO Q4H PRN PRN Reason: Heartburn Carvedilol (Carvedilol 25 Mg Tablet) 25 mg PO BID [facility]; Protocol Last Admin: 11/17/24 21:59 Dose: 25 mg Documented By: KAILEY Ergocalciferol (Ergocalciferol (Vitamin D2) 1,250 Mcg Capsule) 1,250 mcg PO SA [facility] Furosemide (Furosemide 40 Mg/4 Ml Vial) 40 mg IVPUSH DAILY [facility]; Protocol Gabapentin (Gabapentin 100 Mg Capsule) 200 mg PO TID [facility] Last Admin: 11/17/24 21:58 Dose: 200 mg Documented By: KAILEY Glucose (Glucose Gel 15 Gm Gel..Gram.) 15 gm PO Q15M PRN; Protocol PRN Reason: per Hypoglycemia Standing Ord. Guaifenesin/Codeine Phosphate (Guaifen/Codeine Sf 200/20/10ml 10 Ml Liquid) 10 ml PO Q4H PRN PRN Reason: Cough Last Admin: 11/18/24 04:55 Dose: 10 ml Documented By: KAILEY Hydroxyzine HCl (Hydroxyzine Hcl 25 Mg Tablet) 25 mg PO BID [facility] Last Admin: 11/17/24 21:59 Dose: 25 mg Documented By: KAILEY Dextrose (D10) 250 mls @ 750 mls/hr IV Q15M PRN; Protocol PRN Reason: per Hypoglycemia Standing Ord. Insulin Human Lispro (Insulin Lispro 100 Unit/Ml 3 Ml Vial) 0 unit SUBCUT QIDACHS [facility]; Protocol Last Admin: 11/18/24 07:30 Dose: Not Given Documented By: DELIO Non-Admin Reason: No Insulin Coverage Levalbuterol HCl (Levalbuterol Hcl 1.25 Mg/3 Ml Vial.Neb) 1.25 mg INHALE RQ4H WHILE AWAKE [facility] Last Admin: 11/18/24 07:26 Dose: 1.25 mg Documented By: DEVYN Magnesium Hydroxide (Milk Of Magnesia 30 Ml Oral.Susp) 30 ml PO DAILY PRN PRN Reason: Constipation Melatonin (Melatonin 3 Mg Tablet) 6 mg PO BEDTIME PRN PRN Reason: Insomnia Methylprednisolone Sodium Succinate (Methylprednisolone Sod Succ 40 Mg/Ml Vial) 40 mg IVPUSH Q12H [facility] Last Admin: 11/18/24 07:37 Dose: 40 mg Documented By: DELIO Multivitamins/Vitamin C (Multivitamin Tablet) 1 tab PO DAILY [facility] Nicotine (Nicotine 14 Mg Patch.Td24) 14 mg TRANSDERMA DAILY [facility] Last Admin: 11/17/24 19:16 Dose: 14 mg Documented By: ESME Omeprazole (Omeprazole 40 Mg Capsule.) 40 mg PO DAILY@0630 [facility] Last Admin: 11/18/24 06:32 Dose: 40 mg Documented By: KAILEY Ondansetron HCl (Ondansetron Hcl 4 Mg/2 Ml Vial) 4 mg IVPUSH Q8H PRN PRN Reason: Nausea and Vomiting Oseltamivir Phosphate (Oseltamivir Phosphate 30 Mg Capsule) 30 mg PO BID [facility] Stop: 11/21/24 21:01 Pyridoxine HCl (Pyridoxine Hcl (Vitamin B6) 50 Mg Tablet) 100 mg PO DAILY [facility] Sertraline HCl (Sertraline Hcl 100 Mg Tablet) 100 mg PO DAILY [facility] Sodium Chloride (0.9 % Sodium Chloride Flush 3 Ml Syringe) 3 ml IVFLUSH QSHIFT [facility] Last Admin: 11/18/24 07:27 Dose: Not Given Documented By: DELIO Non-Admin Reason: See Note Labs 11/17/24 08:15 11/19/24 05:31 Labs: Laboratory Results - last 24 hr 11/17/24 11/17/24 11/17/24 08:15 08:18 13:56 MCV 84.9 MCH 28.6 MCHC 33.7 RDW 12.8 Plt Count 318 MPV 11.6 Immature Gran % (Auto) 0.6 H Neut % (Auto) 88.9 H Lymph % (Auto) 6.5 L [place] % (Auto) 3.8 Eos % (Auto) 0.0 Baso % (Auto) 0.2 Lymph # (Auto) 1.0 L [place] # (Auto) 0.6 Eos # (Auto) 0.0 Baso # (Auto) 0.0 Abs Immat Gran (auto) 0.09 H Absolute Neuts (auto) 13.1 H Absolute Nucleated RBC 0.000 Nucleated RBC % (auto) 0.0 PT 12.0 INR 1.0 VBG pH 7.31 L VBG pCO2 43 VBG pO2 58 VBG HCO3 22 VBG O2 Saturation 82.0 VBG Base Excess -3.9 Anion Gap 14 15 Estim Creat Clear Calc 36.2 38.5 Estimated GFR 28 30 POC Glucose Random Glucose 685 H* 622 H* Estimat Average Glucose 341 Hemoglobin A1c % 13.5 H Lactic Acid 1.9 Calcium 8.8 D 8.8 Magnesium 1.8 Total Bilirubin 0.2 Direct Bilirubin < 0.2 AST 18 ALT 17 Alkaline Phosphatase 131 H Troponin I High Sens 43.5 H 45.5 H C-Reactive Protein 13.64 H B-Natriuretic Peptide 641 H Total Protein 7.1 Albumin 3.0 L Urine Color Yellow Urine Appearance Clear Urine pH 6.5 Ur Specific [place] >= 1.030 H Urine Protein >=1000 (4+) H Urine Glucose (UA) >=1000 H Urine Ketones Negative Urine Blood Small (1+) H Urine Nitrite Negative Ur Leukocyte Esterase Negative Urine RBC 3-5 H Urine WBC 0-5 Ur Squamous Epith Cells 3-5 Urine Bacteria None Seen Hyaline Casts 0-2 Influenza Type A (PCR) POSITIVE A Influenza Type B (PCR) NEGATIVE RSV RNA Qual (PCR) NEGATIVE SARS-CoV-2 RNA (RT-PCR) NEGATIVE 11/17/24 11/17/24 11/17/24 15:39 17:33 20:57 MCV MCH MCHC RDW Plt Count MPV Immature Gran % (Auto) Neut % (Auto) Lymph % (Auto) [place] % (Auto) Eos % (Auto) Baso % (Auto) Lymph # (Auto) [place] # (Auto) Eos # (Auto) Baso # (Auto) Abs Immat Gran (auto) Absolute Neuts (auto) Absolute Nucleated RBC Nucleated RBC % (auto) PT INR VBG pH VBG pCO2 VBG pO2 VBG HCO3 VBG O2 Saturation VBG Base Excess Anion Gap Estim Creat Clear Calc Estimated GFR POC Glucose 436 H* 293 H 463 H* Random Glucose Estimat Average Glucose Hemoglobin A1c % Lactic Acid Calcium Magnesium Total Bilirubin Direct Bilirubin AST ALT Alkaline Phosphatase Troponin I High Sens C-Reactive Protein B-Natriuretic Peptide Total Protein Albumin Urine Color Urine Appearance Urine pH Ur Specific [place] Urine Protein Urine Glucose (UA) Urine Ketones Urine Blood Urine Nitrite Ur Leukocyte Esterase Urine RBC Urine WBC Ur Squamous Epith Cells Urine Bacteria Hyaline Casts Influenza Type A (PCR) Influenza Type B (PCR) RSV RNA Qual (PCR) SARS-CoV-2 RNA (RT-PCR) 11/17/24 11/17/24 11/18/24 22:48 23:06 00:19 MCV MCH MCHC RDW Plt Count MPV Immature Gran % (Auto) Neut % (Auto) Lymph % (Auto) [place] % (Auto) Eos % (Auto) Baso % (Auto) Lymph # (Auto) [place] # (Auto) Eos # (Auto) Baso # (Auto) Abs Immat Gran (auto) Absolute Neuts (auto) Absolute Nucleated RBC Nucleated RBC % (auto) PT INR VBG pH VBG pCO2 VBG pO2 VBG HCO3 VBG O2 Saturation VBG Base Excess Anion Gap Estim Creat Clear Calc Estimated GFR POC Glucose 465 H* 457 H* 296 H Random Glucose Estimat Average Glucose Hemoglobin A1c % Lactic Acid Calcium Magnesium Total Bilirubin Direct Bilirubin AST ALT Alkaline Phosphatase Troponin I High Sens C-Reactive Protein B-Natriuretic Peptide Total Protein Albumin Urine Color Urine Appearance Urine pH Ur Specific [place] Urine Protein Urine Glucose (UA) Urine Ketones Urine Blood Urine Nitrite Ur Leukocyte Esterase Urine RBC Urine WBC Ur Squamous Epith Cells Urine Bacteria Hyaline Casts Influenza Type A (PCR) Influenza Type B (PCR) RSV RNA Qual (PCR) SARS-CoV-2 RNA (RT-PCR) 11/18/24 11/18/24 11/18/24 04:34 04:54 07:24 MCV MCH MCHC RDW Plt Count MPV Immature Gran % (Auto) Neut % (Auto) Lymph % (Auto) [place] % (Auto) Eos % (Auto) Baso % (Auto) Lymph # (Auto) [place] # (Auto) Eos # (Auto) Baso # (Auto) Abs Immat Gran (auto) Absolute Neuts (auto) Absolute Nucleated RBC Nucleated RBC % (auto) PT INR VBG pH VBG pCO2 VBG pO2 VBG HCO3 VBG O2 Saturation VBG Base Excess Anion Gap 15 Estim Creat Clear Calc 36.0 Estimated GFR 28 POC Glucose 135 H 150 H Random Glucose 128 H Estimat Average Glucose Hemoglobin A1c % Lactic Acid Calcium 9.1 Magnesium Total Bilirubin Direct Bilirubin AST ALT Alkaline Phosphatase Troponin I High Sens C-Reactive Protein B-Natriuretic Peptide Total Protein Albumin Urine Color Urine Appearance Urine pH Ur Specific [place] Urine Protein Urine Glucose (UA) Urine Ketones Urine Blood Urine Nitrite Ur Leukocyte Esterase Urine RBC Urine WBC Ur Squamous Epith Cells Urine Bacteria Hyaline Casts Influenza Type A (PCR) Influenza Type B (PCR) RSV RNA Qual (PCR) SARS-CoV-2 RNA (RT-PCR) Assessment and Plan (1) Acute hypoxic respiratory failure: Status: Acute (2) COPD exacerbation: Status: Acute (3) CHF exacerbation: Status: Acute (4) Hyperglycemia: Status: Acute (5) Hypokalemia: Status: Acute (6) Atrial fibrillation with rapid ventricular response: Status: Acute (7) Influenza A: Status: Acute Plan 54-year-old female with a PMH significant for?CAD, anterior wall [place] in 2015, mild cardiomyopathy, HTN, insulin-dependent type 2 diabetes, HLD, 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 Pt will be admitted to the hospital for multiple significant issues, including acute hypoxic respiratory failure, new onset AFib with RVR, acute CHF exacerbation, acute COPD exacerbation, hyperglycemia, and MELODIE, all in the setting of acute influenza infection. New onset AFib with RVR Likely multifactorial, in the setting of influenza infection as well as CHF and COPD exacerbations s/p diltiazem 50 mg IV, metoprolol 5 mg IV x2, and metoprolol 25 p.o. in the ED Will continue carvedilol 25 mg b.i.d., home dose patient not taking it at home Continue Eliquis 5 mg p.o. b.i.d. Follow Echocardiogram Case discussed with Cardiology they agree with the above treatment. Acute CHF with reduced EF exacerbation Persistent shortness of breath, CROSS, CXR showing pulmonary edema, elevated BNP above baseline Less bilateral pitting edema Continue Lasix 40 mg IV dailyand coreg Follow echocardiogram Monitor I/O, lytes, daily weights Acute hypoxic respiratory failure in the setting of COPD exacerbation from influenza infection not on home O2, wean as tolerated Continue Solu-Medrol, Xopenex, and guaifenesin MELODIE Creatinine 1.87 at time of presentation, baseline 0.90 Creatinine remains 1.88 today Likely cardiorenal in the setting of above, monitor BMP closely while being diuresed Viral sepsis Tachycardia secondary to AFib with RVR, leukocytosis and tachypnea secondary to viral infection Supportive care Hypokalemia Repleted and normalized was Likely secondary to reduced p.o. intake and GI losses while taking hydrochlorothiazide Diabetes mellitus type 2 Hyperglycemia Apparently stopped checking sugars and using insulin over 1 year ago on her own Random glucose 685 at time of presentation, treated with 10 units of regular insulin in ED Blood sugar improved, Continue sliding scale insulin, diabetic diet A1c 13.5 Elevated troponins/history of CAD Initial troponin 43.5 with repeat flat at 45.5, no chest pain, EKG without ischemic changes Likely type 2 in the setting of above, continue aspirin and statin Monitor on telemetry HTN continue amlodipine and Coreg, hydrochlorothiazide on hold due to hypokalemia and MELODIE GERD PPI Mood disorder Continue sertraline Full Code DVT Prophylaxis: On Eliquis Pt will require continued inpatient hospitalization for acute hypoxic respiratory failure, new onset AFib with RVR, acute CHF exacerbation, acute COPD exacerbation, hyperglycemia, and MELODIE, all in the setting of acute influenza infection. Requiring IV diuretics, supplemental oxygen, breathing treatments, IV steroids, as well as specialist consultation with Cardiology and close monitoring of labs and cardiac function. Quality Stroke Does the patient have a stroke diagnosis?: No VTE Prior VTE?: No VTE Risk Level:: Medical - moderate - high VTE Device Contraindication: Treatment Not Indicated VTE Drug Contraindication: N/A - Med Ordered
[2024-11-18] MEDS: carvediloL 25 MG TABLET PO ×2 (09:04→22:25)
[2024-11-18] MEDS: Furosemide 40 MG/4 ML VIAL IVPUSH ×2 (09:04→12:12)
[2024-11-18] MEDS: Multivitamin TABLET 1 TAB PO (09:05)
[2024-11-18] MEDS: Aspirin Enteric Coated 81 MG TABLET.DR PO (09:05)
[2024-11-18] MEDS: amLODIPine Besylate 10 MG TABLET PO (09:05)
[2024-11-18] MEDS: hydrOXYzine HCL 25 MG TABLET PO ×2 (09:05→22:25)
[2024-11-18] MEDS: Gabapentin 100 MG CAPSULE 200 MG PO ×3 (09:05→22:25)
[2024-11-18] MEDS: Nicotine 14 MG PATCH.TD24 TRANSDERMA (09:05)
[2024-11-18] MEDS: Atorvastatin Calcium 80 MG TABLET PO (09:05)
[2024-11-18] MEDS: Apixaban 5 MG TABLET PO ×2 (09:05→22:25)
--- NOTE | 2024-11-18 10:01 | MHC.CM.PN ---
CM met with Patient at bedside, in the ED, and addressed IMM with her verbally r/t contact precautions for Influenza A(original was given to Patient and a copy will be placed on the chart). Patient lives alone in an apartment and she uses a cane and a walker to assist with mobility. Patient may benefit from a PT Eval to assist with disposition (Home with new VNA([facility] in the past) VS STR). CM has initiated and will follow for dc planning. PCP is Dr. Rancho Duarte and Step Mother will transport if Patient is dc'd to home.
--- NOTE | 2024-11-18 10:46 | PC.NURSE ---
patient last dosed yesterday at [facility] inpt unit. 200 mg 11/17/2024 by Susanna dodge
[2024-11-18] MEDS: Pyridoxine HCl (Vitamin B6) 50 MG TABLET 100 MG PO (11:00)
[2024-11-18] MEDS: Oseltamivir Phosphate 30 MG CAPSULE PO ×2 (11:00→22:26)
[2024-11-18] MEDS: Sertraline HCL 100 MG TABLET PO (11:00)
[2024-11-18 12:19] LABS: Glucose, Whole Blood 261 mg/dL (60-115)
--- NOTE | 2024-11-18 12:48 | P.PNCA_ITS ---
Subjective Subjective Date of Service: 11/18/24 Interval history: Seen examined at bedside. Feeling little better. Heart rate better controlled. Continues to be in atrial fibrillation. Physical Exam Vital Signs: Last Vital Signs Temp 97.8 F 11/18/24 10:57 Pulse 105 H 11/18/24 11:09 Resp 24 H 11/18/24 11:09 BP 147/78 H 11/18/24 10:57 Pulse Ox 92 11/18/24 10:57 O2 Del Method Nasal Cannula 11/18/24 10:57 O2 Flow Rate 4 11/18/24 10:57 BMI result Body Mass Index 33.6 GENERAL APPEARANCE: On supplemental oxygen. SKIN: no suspicious lesions, warm and dry. HEART: no murmurs, irregular rate and rhythm. LUNGS: Bibasilar crackles. Mild expiratory wheezes. ABDOMEN: soft, nontender. EXTREMITIES: no edema. PERIPHERAL PULSES: equal. NEUROLOGIC: No gross deficits, AAO X 3 Objective Labs and Meds 11/17/24 08:15 11/18/24 04:34 Lab results: Laboratory Results - last 24 hr 11/17/24 11/17/24 11/17/24 08:15 13:56 15:39 Sodium 134 L Potassium 4.3 D Chloride 103 Carbon Dioxide 20 L Anion Gap 15 BUN 31 H Creatinine 1.76 H Estim Creat Clear Calc 38.5 Estimated GFR 30 POC Glucose 436 H* Random Glucose 622 H* Estimat Average Glucose 341 Hemoglobin A1c % 13.5 H Lactic Acid 1.9 Calcium 8.8 Troponin I High Sens 45.5 H Urine Color Yellow Urine Appearance Clear Urine pH 6.5 Ur Specific [place] >= 1.030 H Urine Protein >=1000 (4+) H Urine Glucose (UA) >=1000 H Urine Ketones Negative Urine Blood Small (1+) H Urine Nitrite Negative Ur Leukocyte Esterase Negative Urine RBC 3-5 H Urine WBC 0-5 Ur Squamous Epith Cells 3-5 Urine Bacteria None Seen Hyaline Casts 0-2 11/17/24 11/17/24 11/17/24 17:33 20:57 22:48 Sodium Potassium Chloride Carbon Dioxide Anion Gap BUN Creatinine Estim Creat Clear Calc Estimated GFR POC Glucose 293 H 463 H* 465 H* Random Glucose Estimat Average Glucose Hemoglobin A1c % Lactic Acid Calcium Troponin I High Sens Urine Color Urine Appearance Urine pH Ur Specific [place] Urine Protein Urine Glucose (UA) Urine Ketones Urine Blood Urine Nitrite Ur Leukocyte Esterase Urine RBC Urine WBC Ur Squamous Epith Cells Urine Bacteria Hyaline Casts 11/17/24 11/18/24 11/18/24 23:06 00:19 04:34 Sodium 137 Potassium 4.1 Chloride 106 Carbon Dioxide 20 L Anion Gap 15 BUN 40 H Creatinine 1.88 H Estim Creat Clear Calc 36.0 Estimated GFR 28 POC Glucose 457 H* 296 H Random Glucose 128 H Estimat Average Glucose Hemoglobin A1c % Lactic Acid Calcium 9.1 Troponin I High Sens Urine Color Urine Appearance Urine pH Ur Specific [place] Urine Protein Urine Glucose (UA) Urine Ketones Urine Blood Urine Nitrite Ur Leukocyte Esterase Urine RBC Urine WBC Ur Squamous Epith Cells Urine Bacteria Hyaline Casts 11/18/24 11/18/24 11/18/24 04:54 07:24 12:11 Sodium Potassium Chloride Carbon Dioxide Anion Gap BUN Creatinine Estim Creat Clear Calc Estimated GFR POC Glucose 135 H 150 H 261 H Random Glucose Estimat Average Glucose Hemoglobin A1c % Lactic Acid Calcium Troponin I High Sens Urine Color Urine Appearance Urine pH Ur Specific [place] Urine Protein Urine Glucose (UA) Urine Ketones Urine Blood Urine Nitrite Ur Leukocyte Esterase Urine RBC Urine WBC Ur Squamous Epith Cells Urine Bacteria Hyaline Casts Progress Note: A&P Assessment and plan (1) Acute hypoxic respiratory failure: Status: Acute (2) CHF exacerbation: Status: Acute (3) Atrial fibrillation with rapid ventricular response: Status: Acute Plan 54-year-old female with known history of coronary disease presenting with influenza A and respiratory distress. Clinically appeared to be in heart failure and had new onset atrial fibrillation with rapid ventricular response. She has been on rate control with the home dose of carvedilol at this point. Heart rates are well controlled currently. If she is below 120 then currently nothing different to be done. Still has some crackles and wheezes but difficult to say how much of this is related to influenza. In any case gentle diuresis can be tried. Her creatinine is abnormal compared to her baseline and we need to be careful with diuresis. She is on Tamiflu for influenza. She will get echocardiography on Wednesday. Thank you for allowing me to participate in the care of your patient. Please feel free to contact me if you have any questions. Time Spent With Patient Time: Total time managing care of this patient today ____ minutes. Progress Note: Quality Stroke Does the patient have a stroke diagnosis?: No Procedures Date of Service Date of Service: 11/18/24
[2024-11-18] MEDS: Insulin Lispro 100 UNIT/ML 3 ML VIAL SUBCUT ×3 (13:02→22:26)
--- NOTE | 2024-11-18 14:23 | PC.NURSE ---
patient medicated per DEC, takes meds whole with water. patient lung sounds rhonchorous bilat. inpatient attending aware, RT aware. patient currently on 4l [place]
[2024-11-18 17:31] LABS: Glucose, Whole Blood 347 mg/dL (60-115)
[2024-11-18 20:53] LABS: Glucose, Whole Blood 300 mg/dL (60-115)
[2024-11-18] MEDS: 0.9 % Sodium Chloride Flush 3 ML SYRINGE IVFLUSH ×2 (22:26)
[2024-11-19] VITALS (14 sets, daily range): BP systolic 102–138; BP diastolic 67–78; PULSE 80–104; RESP 18–28; TEMP 36–36.7; O2SAT 92–95; BMI 36.3
[2024-11-19] MEDS: Furosemide 40 MG/4 ML VIAL IVPUSH (03:47)
[2024-11-19] MEDS: methylPREDNISolone Sod Succ 40 MG/ML VIAL IVPUSH ×2 (05:56→17:45)
[2024-11-19] MEDS: Omeprazole 40 MG CAPSULE.DR PO (05:56)
[2024-11-19 06:44] LABS: Anion Gap 17 (12-20); Blood Urea Nitrogen 67 mg/dL (9-16); Calcium 8.8 mg/dL (8.4-10.2); Carbon Dioxide 19 mmol/L (22-29); Chloride 104 mmol/L (96-108); Creatinine Clr Calc Pharmacy 28.6; Estimated Glomerular Filt Rate 20; Glucose Random 222 mg/dL (60-115); Potassium 3.9 mmol/L (3.3-5.1); Sodium 136 mmol/L (135-145)
[2024-11-19 07:26] LABS: Glucose, Whole Blood 221 mg/dL (60-115)
[2024-11-19] MEDS: levalbuterol HCL 1.25 MG/3 ML VIAL.NEB INHALE ×4 (07:37→19:23)
[2024-11-19] MEDS: Multivitamin TABLET 1 TAB PO (08:06)
[2024-11-19] MEDS: Insulin Lispro 100 UNIT/ML 3 ML VIAL SUBCUT ×4 (08:06→20:53)
[2024-11-19] MEDS: Atorvastatin Calcium 80 MG TABLET PO (08:06)
[2024-11-19] MEDS: 0.9 % Sodium Chloride Flush 3 ML SYRINGE IVFLUSH ×3 (08:06→20:54)
[2024-11-19] MEDS: amLODIPine Besylate 10 MG TABLET PO (08:06)
[2024-11-19] MEDS: carvediloL 25 MG TABLET PO ×2 (08:06→20:52)
[2024-11-19] MEDS: Gabapentin 100 MG CAPSULE 200 MG PO ×3 (08:06→20:53)
[2024-11-19] MEDS: Sertraline HCL 100 MG TABLET PO (08:07)
[2024-11-19] MEDS: Oseltamivir Phosphate 30 MG CAPSULE PO ×2 (08:07→20:52)
[2024-11-19] MEDS: Nicotine 14 MG PATCH.TD24 TRANSDERMA (08:07)
[2024-11-19] MEDS: hydrOXYzine HCL 25 MG TABLET PO (08:07)
[2024-11-19] MEDS: Apixaban 5 MG TABLET PO ×2 (08:07→20:53)
[2024-11-19] MEDS: Aspirin Enteric Coated 81 MG TABLET.DR PO (08:07)
[2024-11-19] MEDS: Pyridoxine HCl (Vitamin B6) 50 MG TABLET 100 MG PO (08:07)
[2024-11-19 11:37] LABS: Glucose, Whole Blood 325 mg/dL (60-115)
--- NOTE | 2024-11-19 11:52 | HO.PM.IMPN ---
Subjective Subjective Date of Service: 11/19/24 Interval History: Feeling better this morning Denies chest pain, no shortness of breath, no fevers nor my no chills decreased oxygen requirement currently on 2 L Noted to have bump in creatinine from 1.88-2.47 Tolerating diet no nausea, no vomiting or abdominal pain. Review of Systems All other symptoms reviewed and are negative. Physical Exam Vital Signs: Vital Signs: Last Vital Signs Temp 97.9 F 11/19/24 11:45 Pulse 80 11/19/24 11:45 Resp 20 11/19/24 11:45 BP 102/68 11/19/24 11:45 Pulse Ox 94 11/19/24 11:45 O2 Del Method Oxymask 11/19/24 11:45 O2 Flow Rate 5 11/19/24 11:45 BMI result Body Mass Index 36.3 Const: Other: General sitting comfortably in no acute distress. Neck no JVD. CVS regular rate rhythm, Respiratory lungs coarse breath sounds , rhonchi, no respiratory distress. Gastrointestinal abdomen soft, non tender, bowel sounds audible Extremities no edema. Neuro non focal Skin no rash Psych appropriate affect HEENT: Other: Face is symmetrical. Mucous membranes moist. Eyes: General: appearance normal, both eyes and all related structures Neck: Other: The patient had a very fleshy neck and it was impossible to evaluate reliably for JVD. Normal range of motion Resp: Other: The patient is tachypneic. There crackles bilaterally. Also some wheezes Cardio: Other: The patient had an irregular rate and rhythm with no distinct murmur. GI: Other: Abdomen is soft and nontender Skin: Other: Skin is pale and dry Neuro: Other: The patient was awake and alert. Cranial nerves are intact. She moves her extremities symmetrically. No focal neurological deficit. Extrem: Other: 2+ edema of the lower legs. Objective Data Active Medications Acetaminophen (Acetaminophen 325 Mg Tablet) 650 mg PO Q6H PRN PRN Reason: Pain, Mild 1-3,fever,headache Amlodipine Besylate (Amlodipine Besylate 10 Mg Tablet) 10 mg PO DAILY [facility]; Protocol Last Admin: 11/19/24 08:06 Dose: 10 mg Documented By: NELL Apixaban (Apixaban 5 Mg Tablet) 5 mg PO BID [facility] Last Admin: 11/19/24 08:07 Dose: 5 mg Documented By: NELL Aspirin (Aspirin Enteric Coated 81 Mg Tablet.) 81 mg PO DAILY [facility] Last Admin: 11/19/24 08:07 Dose: 81 mg Documented By: NELL Atorvastatin Calcium (Atorvastatin Calcium 80 Mg Tablet) 80 mg PO DAILY [facility] Last Admin: 11/19/24 08:06 Dose: 80 mg Documented By: NELL Calcium Carbonate (Calcium Carbonate 750 Mg Tab.Chew) 750 mg PO Q4H PRN PRN Reason: Heartburn Carvedilol (Carvedilol 25 Mg Tablet) 25 mg PO BID [facility]; Protocol Last Admin: 11/19/24 08:06 Dose: 25 mg Documented By: NELL Ergocalciferol (Ergocalciferol (Vitamin D2) 1,250 Mcg Capsule) 1,250 mcg PO SA [facility] Last Admin: 11/18/24 11:03 Dose: Not Given Documented By: DELIO Non-Admin Reason: Med Not Available Gabapentin (Gabapentin 100 Mg Capsule) 200 mg PO TID [facility] Last Admin: 11/19/24 08:06 Dose: 200 mg Documented By: NELL Glucose (Glucose Gel 15 Gm Gel..Gram.) 15 gm PO Q15M PRN; Protocol PRN Reason: per Hypoglycemia Standing Ord. Guaifenesin/Codeine Phosphate (Guaifen/Codeine Sf 200/20/10ml 10 Ml Liquid) 10 ml PO Q4H PRN PRN Reason: Cough Last Admin: 11/18/24 22:42 Dose: 10 ml Documented By: LLOYD Comments: requested for cough Hydroxyzine HCl (Hydroxyzine Hcl 25 Mg Tablet) 25 mg PO BID [facility] Last Admin: 11/19/24 08:07 Dose: 25 mg Documented By: NELL Dextrose (D10) 250 mls @ 750 mls/hr IV Q15M PRN; Protocol PRN Reason: per Hypoglycemia Standing Ord. Insulin Human Lispro (Insulin Lispro 100 Unit/Ml 3 Ml Vial) 0 unit SUBCUT QIDACHS [facility]; Protocol Last Admin: 11/19/24 08:06 Dose: 4 unit Documented By: NELL Levalbuterol HCl (Levalbuterol Hcl 1.25 Mg/3 Ml Vial.Neb) 1.25 mg INHALE RQ4H WHILE AWAKE [facility] Last Admin: 11/19/24 11:07 Dose: 1.25 mg Documented By: KEERTHI Magnesium Hydroxide (Milk Of Magnesia 30 Ml Oral.Susp) 30 ml PO DAILY PRN PRN Reason: Constipation Melatonin (Melatonin 3 Mg Tablet) 6 mg PO BEDTIME PRN PRN Reason: Insomnia Methylprednisolone Sodium Succinate (Methylprednisolone Sod Succ 40 Mg/Ml Vial) 40 mg IVPUSH Q12H [facility] Last Admin: 11/19/24 05:56 Dose: 40 mg Documented By: LLOYD Multivitamins/Vitamin C (Multivitamin Tablet) 1 tab PO DAILY [facility] Last Admin: 11/19/24 08:06 Dose: 1 tab Documented By: NELL Nicotine (Nicotine 14 Mg Patch.Td24) 14 mg TRANSDERMA DAILY [facility] Last Admin: 11/19/24 08:07 Dose: 14 mg Documented By: NELL Nystatin (Nystatin Powder 15 Gm Bottle) 1 appl TOPICAL BID [facility]; Protocol Omeprazole (Omeprazole 40 Mg Capsule.) 40 mg PO DAILY@0630 [facility] Last Admin: 11/19/24 05:56 Dose: 40 mg Documented By: LLOYD Ondansetron HCl (Ondansetron Hcl 4 Mg/2 Ml Vial) 4 mg IVPUSH Q8H PRN PRN Reason: Nausea and Vomiting Oseltamivir Phosphate (Oseltamivir Phosphate 30 Mg Capsule) 30 mg PO BID [facility] Stop: 11/21/24 21:01 Last Admin: 11/19/24 08:07 Dose: 30 mg Documented By: NELL Pyridoxine HCl (Pyridoxine Hcl (Vitamin B6) 50 Mg Tablet) 100 mg PO DAILY [facility] Last Admin: 11/19/24 08:07 Dose: 100 mg Documented By: NELL Sertraline HCl (Sertraline Hcl 100 Mg Tablet) 100 mg PO DAILY [facility] Last Admin: 11/19/24 08:07 Dose: 100 mg Documented By: NELL Sodium Chloride (0.9 % Sodium Chloride Flush 3 Ml Syringe) 3 ml IVFLUSH QSHIFT [facility] Last Admin: 11/19/24 08:06 Dose: 3 ml Documented By: NELL Labs 11/17/24 08:15 11/19/24 05:31 Labs: Laboratory Results - last 24 hr 11/18/24 11/18/24 11/18/24 12:11 17:23 20:49 Hold Purple Top Anion Gap Estim Creat Clear Calc Estimated GFR POC Glucose 261 H 347 H 300 H Random Glucose Calcium 11/19/24 11/19/24 11/19/24 05:31 07:22 11:33 Hold Purple Top SEE NOTE Anion Gap 17 Estim Creat Clear Calc 28.6 Estimated GFR 20 POC Glucose 221 H 325 H Random Glucose 222 H Calcium 8.8 Microbiology Microbiology Results: Microbiology 11/17/24 14:38 Blood Culture - Preliminary Blood - Venous No growth after 24 hours. 11/17/24 13:56 Blood Culture - Preliminary Blood - Venous No growth after 24 hours. Assessment and Plan (1) Acute hypoxic respiratory failure: Status: Acute (2) COPD exacerbation: Status: Acute (3) CHF exacerbation: Status: Acute (4) Hyperglycemia: Status: Acute (5) Hypokalemia: Status: Acute (6) Atrial fibrillation with rapid ventricular response: Status: Acute (7) Influenza A: Status: Acute Plan 54-year-old female with a PMH significant for?CAD, anterior wall DC in 2014, mild cardiomyopathy, HTN, insulin-dependent type 2 diabetes, HLD, 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 Pt will be admitted to the hospital for multiple significant issues, including acute hypoxic respiratory failure, new onset AFib with RVR, acute CHF exacerbation, acute COPD exacerbation, hyperglycemia, and MELODIE, all in the setting of acute influenza infection. New onset AFib with RVR Stable heart rate continue carvedilol 25 mg b.i.d., home dose patient not taking it at home Continue Eliquis 5 mg p.o. b.i.d. Follow Echocardiogram Case discussed with Cardiology they agree with the above treatment. Acute CHF with reduced EF exacerbation Shortness of breath improved, CXR on admission showed pulmonary edema and elevated BNP 641 Repeat chest x-ray from this morning showed passive venous congestion consider mild CHF superimposed pneumonic process not excluded Edema resolved DC IV Lasix Follow echocardiogram Monitor I/O, lytes, BNP, daily weights Acute hypoxic respiratory failure in the setting of COPD exacerbation from influenza infection not on home O2, wean as tolerated Continue Solu-Medrol, Xopenex, and guaifenesin MELODIE Creatinine 1.87 at time of presentation, baseline 0.90 Creatinine bumped to 2.47, will DC IV Lasix push by mouth fluids follow BMP avoid nephrotoxins and hypotension Viral sepsis/influenza A Supportive care/oxygen and IV steroids Hypokalemia Repleted and normalized was Likely secondary to reduced p.o. intake and GI losses while taking hydrochlorothiazide Diabetes mellitus type 2 Hyperglycemia Apparently stopped checking sugars and using insulin over 1 year ago on her own Random glucose 685 at time of presentation, treated with 10 units of regular insulin in ED Blood sugar remains elevated likely due to steroids,Continue sliding scale insulin, diabetic diet and add Lantus A1c 13.5 Elevated troponins/history of CAD Initial troponin 43.5 with repeat flat at 45.5, no chest pain, EKG without ischemic changes Likely type 2 in the setting of above, continue aspirin and statin Monitor on telemetry HTN continue amlodipine and Coreg, hydrochlorothiazide on hold due to hypokalemia and EMLODIE GERD PPI Mood disorder Continue sertraline Class 2 obesity recommend low-calorie diet Full Code DVT Prophylaxis: On Eliquis Pt will require continued inpatient hospitalization for acute hypoxic respiratory failure, new onset AFib with RVR, acute CHF exacerbation, acute COPD exacerbation, hyperglycemia, and MELODIE, all in the setting of acute influenza infection Requiring close tele monitoring expert consultation. Quality Stroke Does the patient have a stroke diagnosis?: No VTE Prior VTE?: No VTE Risk Level:: Medical - moderate - high VTE Device Contraindication: Treatment Not Indicated VTE Drug Contraindication: N/A - Med Ordered
[2024-11-19] MEDS: Nystatin Powder 15 GM BOTTLE 1 APPL TOPICAL ×2 (12:23→20:54)
--- NOTE | 2024-11-19 13:47 | PM.PNCARD ---
Subjective Subjective Date of Service: 11/19/24 Interval history: Seen examined at bedside. Kidney function worsening and she is off diuretics currently. Saying that she is feeling little better but still coughing and has shortness of breath. Physical Exam Vital Signs: Last Vital Signs Temp 97.9 F 11/19/24 11:45 Pulse 80 11/19/24 11:45 Resp 20 11/19/24 11:45 BP 102/68 11/19/24 11:45 Pulse Ox 94 11/19/24 11:45 O2 Del Method Oxymask 11/19/24 11:45 O2 Flow Rate 5 11/19/24 11:45 BMI result Body Mass Index 36.3 GENERAL APPEARANCE: On supplemental oxygen. SKIN: no suspicious lesions, warm and dry. HEART: no murmurs, irregular rate and rhythm. LUNGS: Right lung wheezes/rhonchi. ABDOMEN: soft, nontender. EXTREMITIES: no edema. PERIPHERAL PULSES: equal. NEUROLOGIC: No gross deficits, AAO X 3 Objective Labs and Meds 11/17/24 08:15 11/19/24 05:31 Lab results: Laboratory Results - last 24 hr 11/18/24 11/18/24 11/19/24 17:23 20:49 05:31 Hold Purple Top SEE NOTE Sodium 136 Potassium 3.9 Chloride 104 Carbon Dioxide 19 L Anion Gap 17 BUN 67 H Creatinine 2.47 H Estim Creat Clear Calc 28.6 Estimated GFR 20 POC Glucose 347 H 300 H Random Glucose 222 H Calcium 8.8 11/19/24 11/19/24 07:22 11:33 Hold Purple Top Sodium Potassium Chloride Carbon Dioxide Anion Gap BUN Creatinine Estim Creat Clear Calc Estimated GFR POC Glucose 221 H 325 H Random Glucose Calcium Progress Note: A&P Assessment and plan (1) Acute hypoxic respiratory failure: Status: Acute (2) Atrial fibrillation with rapid ventricular response: Status: Acute (3) Influenza A: Status: Acute Plan Pleasant 54 year female with known history of coronary artery disease with previous LAD PCI and mild cardiomyopathy presenting with atrial fibrillation with rapid ventricular response and mild congestive heart failure in the setting of influenza a. She was also noticed to have acute kidney injury on admission but given mild CHF she was given diuretics. Creatinine has worsened since then. Hold diuretics. Repeat chest x-ray is showing elevation of the right hemidiaphragm with mild congestion in the lungs but could be related to underexpansion 2. Clinically she has rhonchi in the right lung only. I think mostly she is asymptomatic currently from influenza. Agree with holding diuretics. Continue beta-gucci for rate control along with anticoagulation for atrial fibrillation. Would favor oral hydration over IV because unclear if she will tolerate IV fluids. If they are tried then they should be tried at low volumes and she should not be started on 1 L at a time. Thank you for allowing me to participate in the care of your patient. Please feel free to contact me if you have any questions. Time Spent With Patient Time: Total time managing care of this patient today ____ minutes. Progress Note: Quality Stroke Does the patient have a stroke diagnosis?: No Procedures Date of Service Date of Service: 11/19/24
[2024-11-19 16:08] LABS: Glucose, Whole Blood 387 mg/dL (60-115)
[2024-11-19 20:01] LABS: Glucose, Whole Blood 290 mg/dL (60-115)
[2024-11-19] MEDS: Insulin Glargine,Hum.rec.anlog 100 UNIT/ML 10 ML VIAL 15 UNIT SUBCUT (20:54)
[2024-11-20] VITALS (12 sets, daily range): BP systolic 102–129; BP diastolic 63–82; PULSE 80–105; RESP 18–26; TEMP 36.2–36.6; O2SAT 89–97; BMI 35.1
[2024-11-20] MEDS: Omeprazole 40 MG CAPSULE.DR PO (05:37)
[2024-11-20] MEDS: methylPREDNISolone Sod Succ 40 MG/ML VIAL IVPUSH (05:37)
--- NOTE | 2024-11-20 07:00 | CA_ITS ---
Transthoracic Echocardiogram Patient (Last, First, Middle): Greer Akins A Gender: Female Date of : 1970 Age: 54 Procedure Date: 11/20/2024 Procedure Type: Transthoracic Echocardiogram [place] [facility] [place] Height: 162.56 cm Weight: 95.26 kg BSA: 2.00 m2 Heart Rate: bpm BP: 112 / 72 mmHg [employer] Service Officer: DES Vasquez MD: Katie KEVIN Juvenile Officer: Jey Chapa MD Symptoms: New onset AFib w/RVR, CHF exacerbation Study Quality: Adequate w contrast ECG Rhythm: Atrial Fibrillation Conclusions: - 1. Moderately reduced LV ejection fraction with LVEF of 35-40% with underlying regional wall motion abnormality 2. Severely dilated left atrium 3. Mild aortic stenosis and regurgitation 4. Normal measured RV systolic pressure with significantly elevated right atrial pressures 5. No gross pericardial effusion Findings Procedure Information Contrast agent, definity, is being given per protocol without apparent complications. Left Ventricle Normal left ventricular cavity size. There is normal left ventricular wall thickness. The left ventricular systolic function is moderately decreased. The visually estimated ejection fraction is between 35-40%. There is evidence of regional wall motion abnormalities. Diastolic function is indeterminate on the basis of available data. Wall Motion Rest Echo Findings The mid anterior segment is hypokinetic. The apical anterior, apical septum, mid inferoseptal, and mid anteroseptal segments are akinetic. All other scored wall segments showed normal motion. Right Ventricle Normal right ventricular cavity size and systolic function. Atria The left atrium is severely dilated. There is no evidence of interatrial shunt. The right atrium is mildly dilated. Aortic Valve There is mild calcification of the aortic valve. There is mild aortic valve stenosis. The peak aortic velocity is 1.85 m/s with a calculated peak gradient of 14 mmHg. The mean gradient is 7 mmHg. There is mild aortic valve regurgitation. Mitral Valve There is mild anterior and posterior mitral leaflet thickening. There is mild mitral annular calcification. There is mild mitral valve regurgitation. There is no mitral valve stenosis. Pulmonic Valve The pulmonic valve was not well visualized. Tricuspid Valve Normal tricuspid valve structure. There is mild tricuspid valve regurgitation. Significantly elevated right atrial pressure. There is no evidence of pulmonary hypertension. Great Vessels The pulmonary artery was not well visualized. There is no dilatation of the ascending aorta measuring 3.50 cm. Small plaque is seen in the sino tubular ridge. Venous The inferior vena cava is moderately dilated and does not collapse with inspiration. Pericardium/Pleural There is no evidence of pericardial effusion. Prior Study Comparison Changes noted compared to prior study dated: 04/02/2022. LV function is further diminished. Right atrial pressures are significantly elevated Measurements 2D Linear Measurements IVSd: 1.09 0.6-0.9/0.6-1.0 cm LVIDd: 6.04 3.9-5.3/4.2-5.9 cm LVIDd Index: 3.02 2.4-3.2/2.2-3.1 cm/m2 LVIDs: 4.63 2.0-3.6 cm LVPWd: 1.01 0.7-1.1 cm LA Diam: 5.30 2.7-3.8/3.0-4.0 cm LAIDs Index: 2.65 1.5-2.3 cm/m2 LV Mass: 331.76 67-162/88-224 g LV Mass Index: 165.88 43-95/49-115 g/m2 LVOT Diam: 2.00 3.0+(-)1.3 cm 2D Systolic Function EF 4C: 40.20 >55% EF 2C: 35.80 >55% EF BiP: 37.00 >55% Mitral Valve MV Pk E: 1.31 MV Decel Time: 207.00 E'Lateral: 6.74 E'Medial: 6.85 E/E' Med: 19.10 E/E' Lat: 19.40 PHT: 61.00 MVA PHT: 3.61 Decel [place]: 6.32 Aortic Valve AoV Pk Leland: 1.85 AoV Mn Leland: 1.24 AoV VTI: 0.31 AoV Pk Grad: 14.00 Aov Mn Grad: 7.00 DAISY Cont.VTI: 1.31 LVOT LVOT Pk Leland: 0.74 LVOT Mn [place]: 0.52 LVOT VTI: 0.13 LVOT Pk Grad: 2.00 LVOT Mn Grad: 1.00 LVOT Diam: 2.00 LVOT Area: 3.14 Diastolic Function MV Pk E: 1.31 E'Medial: 6.85 E/E' Med: 19.10 E' Laterial: 6.74 E/E' Lat: 19.40 Right Ventricle TAPSE (mm): 17.80 TVS' Leland: 11.60 Tricuspid Valve TR Pk Leland: 2.23 TR Pk Grad: 20.00 RA Press: 15.00 RVSP: 35.00 Great Vessels Aorta Sinus of Valsalva: 3.00 2.0-3.5 cm Ao Asc: 3.50 2.1-3.4 cm Pulmonary Valve PV Pk Leland: 1.00 Peak PV Grad: 4.00 Updated in Other Vendor System with Status of Final Jey Chapa MD electronically signed on 11/20/2024 4:24:37 PM with status of Final
[2024-11-20] MEDS: levalbuterol HCL 1.25 MG/3 ML VIAL.NEB INHALE ×4 (07:37→20:19)
[2024-11-20 07:40] LABS: Glucose, Whole Blood 275 mg/dL (60-115)
[2024-11-20] MEDS: Insulin Lispro 100 UNIT/ML 3 ML VIAL SUBCUT ×4 (08:37→23:06)
[2024-11-20] MEDS: Nicotine 14 MG PATCH.TD24 TRANSDERMA (08:38)
[2024-11-20] MEDS: 0.9 % Sodium Chloride Flush 3 ML SYRINGE IVFLUSH ×3 (08:40→23:58)
[2024-11-20] MEDS: Aspirin Enteric Coated 81 MG TABLET.DR PO (09:20)
[2024-11-20] MEDS: hydrOXYzine HCL 25 MG TABLET PO (09:20)
[2024-11-20] MEDS: Gabapentin 100 MG CAPSULE 200 MG PO ×3 (09:20→23:07)
[2024-11-20] MEDS: Multivitamin TABLET 1 TAB PO (09:20)
[2024-11-20] MEDS: guaiFEN/Codeine SF 200/20/10ML 10 ML LIQUID PO (09:20)
[2024-11-20] MEDS: Atorvastatin Calcium 80 MG TABLET PO (09:20)
[2024-11-20] MEDS: Apixaban 5 MG TABLET PO ×2 (09:20→23:07)
[2024-11-20] MEDS: amLODIPine Besylate 10 MG TABLET PO (09:20)
[2024-11-20] MEDS: Oseltamivir Phosphate 30 MG CAPSULE PO ×2 (09:20→23:07)
[2024-11-20] MEDS: Sertraline HCL 100 MG TABLET PO (09:20)
[2024-11-20] MEDS: Pyridoxine HCl (Vitamin B6) 50 MG TABLET 100 MG PO (09:20)
[2024-11-20] MEDS: carvediloL 25 MG TABLET PO ×2 (09:20→23:07)
[2024-11-20] MEDS: Nystatin Powder 15 GM BOTTLE 1 APPL TOPICAL ×2 (09:21→23:10)
--- NOTE | 2024-11-20 10:15 | PM.PNCARD ---
Subjective Subjective Date of Service: 11/20/24 Principal diagnosis: Atrial fibrillation, flu, MELODIE Interval history: Patient's creatinine is still elevated. No repeats today. Heart rate remains in the 80-105 range. No symptoms related to it. Denies any palpitations. Blood pressure is overall stable. Denies any chest pain. Says feels very weak Review of Systems Constitutional: Reports fatigue and Reports weakness Eyes: Reports no additional eye complaints Cardiovascular: Reports no additional cardiovascular complaints and Reports dyspnea Respiratory: Reports chest congestion, Reports cough and Reports dyspnea Gastrointestinal: Reports no additional gastrointestinal complaints Musculoskeletal: Reports no additional musculoskeletal complaints Reports system reviewed and no additional complaints, except as documented and Reports weakness Endocrine: Reports fatigue Physical Exam Vital Signs: Last Vital Signs Temp 97.7 F 11/20/24 07:30 Pulse 102 H 11/20/24 07:37 Resp 20 11/20/24 07:37 BP 119/82 11/20/24 07:30 Pulse Ox 94 11/20/24 07:30 O2 Del Method Oxymask 11/20/24 07:30 O2 Flow Rate 3 11/20/24 07:30 BMI result Body Mass Index 35.1 GENERAL APPEARANCE: On supplemental oxygen. SKIN: no suspicious lesions, warm and dry. HEART: no murmurs, irregular rate and rhythm. LUNGS: Right lung wheezes/rhonchi. ABDOMEN: soft, nontender. EXTREMITIES: no edema. PERIPHERAL PULSES: equal. NEUROLOGIC: No gross deficits, AAO X 3 Objective Labs and Meds 11/17/24 08:15 11/19/24 05:31 Lab results: Laboratory Results - last 24 hr 11/19/24 11/19/24 11/19/24 11:33 15:44 19:54 POC Glucose 325 H 387 H* 290 H 11/20/24 07:25 POC Glucose 275 H Progress Note: A&P Assessment and plan (1) Atrial fibrillation with rapid ventricular response: Status: Acute Assessment and Plan: Atrial fibrillation with borderline rate control. Not a candidate for digoxin due to acute kidney injury. Continue current rate control with carvedilol which is maximized. Switch amlodipine to Cardizem 60 mg q.6 hours starting later in the afternoon. Hold amlodipine. Continue full oral anticoagulation. Continue treat underlying medical issues with COPD exacerbation as well as flu with supportive care. Also please obtain an echocardiogram given her prior lower EF at 45-50% to guide better rate control what other therapy if needed. (2) Atherosclerotic cardiovascular disease: Status: Acute Assessment and Plan: CAD with prior stenting. Currently not having any anginal symptoms. Stop aspirin to reduce bleeding risk. Continue Eliquis. Continue high-intensity statin therapy. Rate control as above. Will need outpatient follow-up. Time Spent With Patient Time: Total time managing care of this patient today ____ minutes. Progress Note: Quality Stroke Does the patient have a stroke diagnosis?: No Procedures Date of Service Date of Service: 11/20/24
[2024-11-20 11:13] LABS: Glucose, Whole Blood 360 mg/dL (60-115)
--- NOTE | 2024-11-20 14:34 | MHC.CM.PN ---
EMR reviewed and per MD rounds, pt is not medically cleared for discharge due to management of MELODIE.
[2024-11-20 16:05] LABS: Glucose, Whole Blood 280 mg/dL (60-115)
--- NOTE | 2024-11-20 16:26 | P.PNIM_ITS ---
Subjective Subjective Date of Service: 11/20/24 Interval History: Feels feeling better than yesterday, persistent shortness of breath and cough, denies chest pain, no palpitations. Complaining of generalized weakness. No acute events overnight. Review of Systems All other system reviewed and are negative. Constitutional Constitutional: Reports fatigue and Reports weakness Eyes Eyes: Reports no additional eye complaints Cardiovascular Cardiovascular: Reports no additional cardiovascular complaints and Reports dyspnea Respiratory Respiratory: Reports chest congestion, Reports cough and Reports dyspnea Gastrointestinal Gastrointestinal: Reports no additional gastrointestinal complaints Musculoskeletal Musculoskeletal: Reports no additional musculoskeletal complaints Neurologic Neurologic: Reports system reviewed and no additional complaints, except as documented and Reports weakness Endocrine Endocrine: Reports fatigue Physical Exam 2 Vital Signs: Vital Signs: Last Vital Signs Temp 97.8 F 11/20/24 15:56 Pulse 88 11/20/24 15:56 Resp 20 11/20/24 15:56 BP 129/75 11/20/24 15:56 Pulse Ox 94 11/20/24 15:56 O2 Del Method Oxymask 11/20/24 15:56 O2 Flow Rate 1 11/20/24 15:56 BMI result Body Mass Index 35.1 Const: Other: General sitting comfortably in no acute distress. Neck no JVD. CVS regular rate rhythm, Respiratory lungs coarse breath sounds , rhonchi, no respiratory distress. Gastrointestinal abdomen soft, non tender, bowel sounds audible Extremities no edema. Neuro non focal Skin no rash Psych appropriate affect HEENT: Other: Face is symmetrical. Mucous membranes moist. Eyes: General: appearance normal, both eyes and all related structures Neck: Other: The patient had a very fleshy neck and it was impossible to evaluate reliably for JVD. Normal range of motion Resp: Other: The patient is tachypneic. There crackles bilaterally. Also some wheezes Cardio: Other: The patient had an irregular rate and rhythm with no distinct murmur. GI: Other: Abdomen is soft and nontender Skin: Other: Skin is pale and dry Neuro: Other: The patient was awake and alert. Cranial nerves are intact. She moves her extremities symmetrically. No focal neurological deficit. Extrem: Other: 2+ edema of the lower legs. Objective Data Active Medications Acetaminophen (Acetaminophen 325 Mg Tablet) 650 mg PO Q6H PRN PRN Reason: Pain, Mild 1-3,fever,headache Apixaban (Apixaban 5 Mg Tablet) 5 mg PO BID [facility] Last Admin: 11/20/24 09:20 Dose: 5 mg Documented By: JAKUB Aspirin (Aspirin Enteric Coated 81 Mg Tablet.Dr) 81 mg PO DAILY [facility] Last Admin: 11/20/24 09:20 Dose: 81 mg Documented By: JAKUB Atorvastatin Calcium (Atorvastatin Calcium 80 Mg Tablet) 80 mg PO DAILY [facility] Last Admin: 11/20/24 09:20 Dose: 80 mg Documented By: JAKUB Calcium Carbonate (Calcium Carbonate 750 Mg Tab.Chew) 750 mg PO Q4H PRN PRN Reason: Heartburn Carvedilol (Carvedilol 25 Mg Tablet) 25 mg PO BID [facility]; Protocol Last Admin: 11/20/24 09:20 Dose: 25 mg Documented By: JAKUB Ergocalciferol (Ergocalciferol (Vitamin D2) 1,250 Mcg Capsule) 1,250 mcg PO SA [facility] Last Admin: 11/18/24 11:03 Dose: Not Given Documented By: DELIO Non-Admin Reason: Med Not Available Gabapentin (Gabapentin 100 Mg Capsule) 200 mg PO TID [facility] Last Admin: 11/20/24 16:23 Dose: 200 mg Documented By: JAKUB Glucose (Glucose Gel 15 Gm Gel..Gram.) 15 gm PO Q15M PRN; Protocol PRN Reason: per Hypoglycemia Standing Ord. Guaifenesin/Codeine Phosphate (Guaifen/Codeine Sf 200/20/10ml 10 Ml Liquid) 10 ml PO Q4H PRN PRN Reason: Cough Last Admin: 11/20/24 09:20 Dose: 10 ml Documented By: JAKUB Hydroxyzine HCl (Hydroxyzine Hcl 25 Mg Tablet) 25 mg PO BID [facility] Last Admin: 11/20/24 09:20 Dose: 25 mg Documented By: JAKUB Dextrose (D10) 250 mls @ 750 mls/hr IV Q15M PRN; Protocol PRN Reason: per Hypoglycemia Standing Ord. Insulin Glargine (Insulin Glargine,Hum.Rec.Anlog 100 Unit/Ml 10 Ml Vial) 25 unit SUBCUT BEDTIME [facility] Insulin Human Lispro (Insulin Lispro 100 Unit/Ml 3 Ml Vial) 0 unit SUBCUT QIDACHS [facility]; Protocol Last Admin: 11/20/24 16:23 Dose: 10 unit Documented By: JAKUB Levalbuterol HCl (Levalbuterol Hcl 1.25 Mg/3 Ml Vial.Neb) 1.25 mg INHALE RQ4H WHILE AWAKE [facility] Last Admin: 11/20/24 15:21 Dose: 1.25 mg Documented By: TASNEEM Magnesium Hydroxide (Milk Of Magnesia 30 Ml Oral.Susp) 30 ml PO DAILY PRN PRN Reason: Constipation Melatonin (Melatonin 3 Mg Tablet) 6 mg PO BEDTIME PRN PRN Reason: Insomnia Methylprednisolone Sodium Succinate (Methylprednisolone Sod Succ 40 Mg/Ml Vial) 40 mg IVPUSH Q12H [facility] Last Admin: 11/20/24 05:37 Dose: 40 mg Documented By: LLOYD Multivitamins/Vitamin C (Multivitamin Tablet) 1 tab PO DAILY [facility] Last Admin: 11/20/24 09:20 Dose: 1 tab Documented By: JAKUB Nicotine (Nicotine 14 Mg Patch.Td24) 14 mg TRANSDERMA DAILY [facility] Last Admin: 11/20/24 08:38 Dose: 14 mg Documented By: JAKUB Nystatin (Nystatin Powder 15 Gm Bottle) 1 appl TOPICAL BID [facility]; Protocol Last Admin: 11/20/24 09:21 Dose: 1 appl Documented By: JAKUB Omeprazole (Omeprazole 40 Mg Capsule.) 40 mg PO DAILY@0630 [facility] Last Admin: 11/20/24 05:37 Dose: 40 mg Documented By: LLOYD Ondansetron HCl (Ondansetron Hcl 4 Mg/2 Ml Vial) 4 mg IVPUSH Q8H PRN PRN Reason: Nausea and Vomiting Oseltamivir Phosphate (Oseltamivir Phosphate 30 Mg Capsule) 30 mg PO BID [facility] Stop: 11/21/24 21:01 Last Admin: 11/20/24 09:20 Dose: 30 mg Documented By: JAKUB Pyridoxine HCl (Pyridoxine Hcl (Vitamin B6) 50 Mg Tablet) 100 mg PO DAILY [facility] Last Admin: 11/20/24 09:20 Dose: 100 mg Documented By: JAKUB Sertraline HCl (Sertraline Hcl 100 Mg Tablet) 100 mg PO DAILY [facility] Last Admin: 11/20/24 09:20 Dose: 100 mg Documented By: JAKUB Sodium Chloride (0.9 % Sodium Chloride Flush 3 Ml Syringe) 3 ml IVFLUSH QSHIFT [facility] Last Admin: 11/20/24 16:24 Dose: 3 ml Documented By: JAKUB Labs 11/17/24 08:15 11/19/24 05:31 Labs: Laboratory Results - last 24 hr 11/19/24 11/20/24 11/20/24 19:54 07:25 10:56 POC Glucose 290 H 275 H 360 H* 11/20/24 15:52 POC Glucose 280 H Microbiology Microbiology Results: Microbiology 11/17/24 14:38 Blood Culture - Preliminary Blood - Venous No growth after 48 hours. 11/17/24 13:56 Blood Culture - Preliminary Blood - Venous No growth after 48 hours. Assessment and Plan (1) Acute hypoxic respiratory failure: Status: Acute (2) COPD exacerbation: Status: Acute (3) CHF exacerbation: Status: Acute Plan 54-year-old female with a PMH significant for?CAD, anterior wall [place] in 2014, mild cardiomyopathy, HTN, insulin-dependent type 2 diabetes, HLD, 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 Pt will be admitted to the hospital for multiple significant issues, including acute hypoxic respiratory failure, new onset AFib with RVR, acute CHF exacerbation, acute COPD exacerbation, hyperglycemia, and MELODIE, all in the setting of acute influenza infection. New onset AFib with RVR Stable heart rate continue carvedilol 25 mg b.i.d., home dose patient was not taking it at home Continue Eliquis 5 mg p.o. b.i.d. Echocardiogram showed EF 35-40%, evidence of wall motion abnormality, indeterminate diastolic function, left atrium severely dilated Will discuss further treatment plan with Cardiology Acute CHF with reduced EF exacerbation Shortness of breath improved, CXR on admission showed pulmonary edema and elevated BNP 641 Repeat chest x-ray showed passive venous congestion consider mild CHF superimposed pneumonic process not excluded Edema resolved Monitor I/O, lytes, BNP, daily weights Acute hypoxic respiratory failure in the setting of COPD exacerbation from influenza infection not on home O2, wean as tolerated Continue Solu-Medrol, Xopenex, and guaifenesin MELODIE Creatinine 1.87 at time of presentation, baseline 0.90 Creatinine bumped to 2.47, diuretics on hold repeat labs pending,avoid nephrotoxins and hypotension Viral sepsis/influenza A Supportive care/oxygen and IV steroids Hypokalemia Repleted and normalized was Likely secondary to reduced p.o. intake and GI losses while taking hydrochlorothiazide Diabetes mellitus type 2 Hyperglycemia Apparently stopped checking sugars and using insulin over 1 year ago on her own Random glucose 685 at time of presentation, treated with 10 units of regular insulin in ED Blood sugar remains elevated likely due to steroids,Continue sliding scale insulin, diabetic diet and increase dose of Lantus to 25 units, adjusted insulin sliding scale A1c 13.5 Elevated troponins/history of CAD Initial troponin 43.5 with repeat flat at 45.5, no chest pain, EKG without ischemic changes Likely type 2 in the setting of above, continue aspirin and statin Echo showed wall motion abnormality, will need ischemia workup HTN continue amlodipine and Coreg, GERD PPI Mood disorder Continue sertraline Class 2 obesity recommend low-calorie diet Full Code DVT Prophylaxis: On Eliquis Pt will require continued inpatient hospitalization for acute hypoxic respiratory failure, new onset AFib with RVR, acute CHF exacerbation, acute COPD exacerbation, hyperglycemia, and MELODIE, all in the setting of acute influenza infection Requiring close tele monitoring expert consultation. Quality Stroke Does the patient have a stroke diagnosis?: No VTE Prior VTE?: No VTE Risk Level:: Medical - moderate - high VTE Device Contraindication: Treatment Not Indicated VTE Drug Contraindication: N/A - Med Ordered
[2024-11-20] MEDS: methylPREDNISolone Sod Succ 40 MG/ML VIAL 20 MG IVPUSH (16:41)
[2024-11-20 21:24] LABS: Glucose, Whole Blood 253 mg/dL (60-115)
[2024-11-20] MEDS: Insulin Glargine,Hum.rec.anlog 100 UNIT/ML 10 ML VIAL 25 UNIT SUBCUT (23:07)
[2024-11-21] VITALS (9 sets, daily range): BP systolic 100–149; BP diastolic 59–83; PULSE 81–90; RESP 20; TEMP 36.2–36.8; O2SAT 88–95; BMI 36.2
[2024-11-21] MEDS: Omeprazole 40 MG CAPSULE.DR PO (05:47)
[2024-11-21] MEDS: methylPREDNISolone Sod Succ 40 MG/ML VIAL 20 MG IVPUSH ×2 (05:47→18:08)
[2024-11-21 07:32] LABS: Glucose, Whole Blood 161 mg/dL (60-115)
[2024-11-21] MEDS: levalbuterol HCL 1.25 MG/3 ML VIAL.NEB INHALE ×3 (07:37→19:40)
[2024-11-21] MEDS: Aspirin Enteric Coated 81 MG TABLET.DR PO (08:16)
[2024-11-21] MEDS: Gabapentin 100 MG CAPSULE 200 MG PO ×3 (08:16→20:29)
[2024-11-21] MEDS: hydrOXYzine HCL 25 MG TABLET PO ×2 (08:16→20:29)
[2024-11-21] MEDS: Atorvastatin Calcium 80 MG TABLET PO (08:16)
[2024-11-21] MEDS: Multivitamin TABLET 1 TAB PO (08:16)
[2024-11-21] MEDS: Sertraline HCL 100 MG TABLET PO (08:16)
[2024-11-21] MEDS: Apixaban 5 MG TABLET PO ×2 (08:16→20:29)
[2024-11-21] MEDS: carvediloL 25 MG TABLET PO ×2 (08:16→20:29)
[2024-11-21] MEDS: Insulin Lispro 100 UNIT/ML 3 ML VIAL SUBCUT ×4 (08:16→20:38)
[2024-11-21] MEDS: Pyridoxine HCl (Vitamin B6) 50 MG TABLET 100 MG PO (08:16)
[2024-11-21] MEDS: Oseltamivir Phosphate 30 MG CAPSULE PO ×2 (08:16→20:29)
[2024-11-21] MEDS: 0.9 % Sodium Chloride Flush 3 ML SYRINGE IVFLUSH ×4 (08:17→21:00)
[2024-11-21] MEDS: Nicotine 14 MG PATCH.TD24 TRANSDERMA (08:17)
[2024-11-21] MEDS: Nystatin Powder 15 GM BOTTLE 1 APPL TOPICAL ×2 (08:17→20:31)
[2024-11-21 08:57] LABS: Anion Gap 14 (12-20); Blood Urea Nitrogen 80 mg/dL (9-16); Calcium 8.5 mg/dL (8.4-10.2); Carbon Dioxide 22 mmol/L (22-29); Chloride 104 mmol/L (96-108); Estimated Glomerular Filt Rate 21; Glucose Random 180 mg/dL (60-115); Sodium 136 mmol/L (135-145)
[2024-11-21 09:05] LABS: B Type Natriuretic Peptide 619 pg/mL (<100)
[2024-11-21] MEDS: guaiFEN/Codeine SF 200/20/10ML 10 ML LIQUID PO (09:15)
--- NOTE | 2024-11-21 10:41 | PM.PNCARD ---
Subjective Subjective Date of Service: 11/21/24 Principal diagnosis: Atrial fibrillation, flu, MELODIE Interval history: Greer continues to have trouble breathing although she says she is slightly better. Continues to be wheezing. Creatinine is still elevated. Echocardiogram yesterday shows further reduction LV ejection fraction with regional wall motion abnormality may suggest ischemic cardiomyopathy or possibly atrial fibrillation related cardiomyopathy with elevated filling pressures. She denies any palpitations. Atrial fibrillation rate remains borderline controlled. Review of Systems Constitutional: Reports weakness Cardiovascular: Denies chest pain, Denies rapid heart rate, Denies leg edema, Denies lightheadedness, Denies Loss of Consciousness, Reports dyspnea and Reports dyspnea on exertion Respiratory: Reports cough, Reports dyspnea, Reports dyspnea on exertion and Reports wheezing Reports weakness Allergic/Immunologic: Reports wheezing Physical Exam Vital Signs: Last Vital Signs Temp 97.8 F 11/21/24 07:07 Pulse 90 11/21/24 08:16 Resp 20 11/21/24 07:39 BP 100/76 11/21/24 08:16 Pulse Ox 93 11/21/24 07:07 O2 Del Method Oxymask 11/21/24 07:07 O2 Flow Rate 3 11/21/24 07:07 BMI result Body Mass Index 36.2 Const General: cooperative and in distress mild and respiratory Nutritional Appearance: obese Orientation/consciousness: patient oriented x3 Neck Neck: Yes trachea midline and Yes supple Resp Effort & Inspection: normal respiratory effort Auscultation: wheezes Cardio Rate: regular rate Rhythm: abnormal rhythm irregularly irregular Heart sounds: S1 normal heart sound present, S2 normal heart sound present, no click, no gallops, no murmurs and no rubs GI Auscultation: normal bowel sounds Skin General skin exam: no rashes or lesions noted Neuro General: patient oriented x3 and no focal motor deficits Extrem General: No clubbing, No cyanosis and Yes edema Objective Labs and Meds 11/17/24 08:15 11/21/24 07:52 Lab results: Laboratory Results - last 24 hr 11/20/24 11/20/24 11/20/24 10:56 15:52 21:19 Sodium Potassium Chloride Carbon Dioxide Anion Gap BUN Creatinine Estim Creat Clear Calc Estimated GFR POC Glucose 360 H* 280 H 253 H Random Glucose Calcium B-Natriuretic Peptide 11/21/24 11/21/24 07:28 07:52 Sodium 136 Potassium 4.0 Chloride 104 Carbon Dioxide 22 Anion Gap 14 BUN 80 H Creatinine 2.35 H Estim Creat Clear Calc 30.0 Estimated GFR 21 POC Glucose 161 H Random Glucose 180 H Calcium 8.5 B-Natriuretic Peptide 619 H Progress Note: A&P Assessment and plan (1) CHF exacerbation: Status: Acute Assessment and Plan: Patient with respiratory failure and continues to remain congested and short of breath. Difficult to assess her fluid status although echocardiogram is suggestive of elevated right atrial pressures. Continues to have elevated creatinine. I think she would benefit from further diuresis at this point time. Would start her on Lasix drip at 5 mg an hour. Strict intake and output chart needs to be pursued. BNP is in his 600 range. Continue monitor electrolytes, renal function and BNP. Continue supportive care for her pulmonary exacerbation with bronchodilators therapy and agree with Xopenex. Consider pulmonary consultation. Continue oxygen therapy. Out of bed to chair. (2) Atrial fibrillation with rapid ventricular response: Status: Acute Assessment and Plan: Atrial fibrillation with borderline rate control. However limited rate control option given LV systolic dysfunction renal dysfunction. Can not use Cardizem and/or digoxin. Rate is currently adequately controlled. If remains difficult control may require WANDA guided cardioversion. Continue Eliquis therapy. Stop aspirin as this will only increase her bleeding risk. Will follow with you Time Spent With Patient Time: Total time managing care of this patient today ____ minutes. Progress Note: Quality Stroke Does the patient have a stroke diagnosis?: No Procedures Date of Service Date of Service: 11/21/24
[2024-11-21 10:58] LABS: Glucose, Whole Blood 287 mg/dL (60-115)
[2024-11-21] MEDS: Furosemide 200 MG in 0.9 % Sodium Chloride 80 ML IVCONT (11:59)
--- NOTE | 2024-11-21 14:39 | P.PNIM_ITS ---
Subjective Subjective Date of Service: 11/21/24 Physical Exam 2 Vital Signs: Vital Signs: Last Vital Signs Temp 97.1 F 11/21/24 10:56 Pulse 85 11/21/24 10:56 Resp 20 11/21/24 10:56 BP 132/71 11/21/24 10:56 Pulse Ox 94 11/21/24 10:56 O2 Del Method Oxymask 11/21/24 10:56 O2 Flow Rate 3 11/21/24 10:56 BMI result Body Mass Index 36.2 Const: Other: General awake alert, appears exhausted uncomfortable, no respiratory distress. Neck no JVD. CVS irregular rate rhythm, Respiratory lungs coarse breath sounds , bilateral rhonchi, no respiratory distress. Gastrointestinal abdomen soft, non tender, bowel sounds audible Extremities mild pitting edema. Neuro non focal Skin no rash Psych appropriate affect Objective Data Active Medications Acetaminophen (Acetaminophen 325 Mg Tablet) 650 mg PO Q6H PRN PRN Reason: Pain, Mild 1-3,fever,headache Apixaban (Apixaban 5 Mg Tablet) 5 mg PO BID [facility] Last Admin: 11/21/24 08:16 Dose: 5 mg Documented By: LUTHER Aspirin (Aspirin Enteric Coated 81 Mg Tablet.) 81 mg PO DAILY [facility] Last Admin: 11/21/24 08:16 Dose: 81 mg Documented By: LUTHER Atorvastatin Calcium (Atorvastatin Calcium 80 Mg Tablet) 80 mg PO DAILY [facility] Last Admin: 11/21/24 08:16 Dose: 80 mg Documented By: LUTHER Calcium Carbonate (Calcium Carbonate 750 Mg Tab.Chew) 750 mg PO Q4H PRN PRN Reason: Heartburn Carvedilol (Carvedilol 25 Mg Tablet) 25 mg PO BID [facility]; Protocol Last Admin: 11/21/24 08:16 Dose: 25 mg Documented By: LUTHER Ergocalciferol (Ergocalciferol (Vitamin D2) 1,250 Mcg Capsule) 1,250 mcg PO [facility] Last Admin: 11/18/24 11:03 Dose: Not Given Documented By: DELIO Non-Admin Reason: Med Not Available Gabapentin (Gabapentin 100 Mg Capsule) 200 mg PO TID [facility] Last Admin: 11/21/24 08:16 Dose: 200 mg Documented By: LUTHER Glucose (Glucose Gel 15 Gm Gel..Gram.) 15 gm PO Q15M PRN; Protocol PRN Reason: per Hypoglycemia Standing Ord. Guaifenesin/Codeine Phosphate (Guaifen/Codeine Sf 200/20/10ml 10 Ml Liquid) 10 ml PO Q4H PRN PRN Reason: Cough Last Admin: 11/21/24 09:15 Dose: 10 ml Documented By: LUTHER Hydroxyzine HCl (Hydroxyzine Hcl 25 Mg Tablet) 25 mg PO BID [facility] Last Admin: 11/21/24 08:16 Dose: 25 mg Documented By: LUTHER Dextrose (D10) 250 mls @ 750 mls/hr IV Q15M PRN; Protocol PRN Reason: per Hypoglycemia Standing Ord. Furosemide 200 mg/ Sodium (Chloride) 100 mls @ 2.5 mls/hr IVCONT .Q24H [facility] Last Admin: 11/21/24 11:59 Dose: 5 mg/hr, 2.5 mls/hr Documented By: LUTHER Insulin Glargine (Insulin Glargine,Hum.Rec.Anlog 100 Unit/Ml 10 Ml Vial) 25 unit SUBCUT BEDTIME [facility] Last Admin: 11/20/24 23:07 Dose: 25 unit Documented By: LLOYD Insulin Human Lispro (Insulin Lispro 100 Unit/Ml 3 Ml Vial) 0 unit SUBCUT QIDACHS [facility]; Protocol Last Admin: 11/21/24 11:59 Dose: 10 unit Documented By: LUTHER Levalbuterol HCl (Levalbuterol Hcl 1.25 Mg/3 Ml Vial.Neb) 1.25 mg INHALE RQ4H WHILE AWAKE [facility] Last Admin: 11/21/24 11:14 Dose: Not Given Documented By: TASNEEM Non-Admin Reason: Patient Refused Magnesium Hydroxide (Milk Of Magnesia 30 Ml Oral.Susp) 30 ml PO DAILY PRN PRN Reason: Constipation Melatonin (Melatonin 3 Mg Tablet) 6 mg PO BEDTIME PRN PRN Reason: Insomnia Methylprednisolone Sodium Succinate (Methylprednisolone Sod Succ 40 Mg/Ml Vial) 20 mg IVPUSH Q12H [facility] Last Admin: 11/21/24 05:47 Dose: 20 mg Documented By: LLOYD Multivitamins/Vitamin C (Multivitamin Tablet) 1 tab PO DAILY [facility] Last Admin: 11/21/24 08:16 Dose: 1 tab Documented By: LUTHER Nicotine (Nicotine 14 Mg Patch.Td24) 14 mg TRANSDERMA DAILY [facility] Last Admin: 11/21/24 08:17 Dose: 14 mg Documented By: LUTHER Nystatin (Nystatin Powder 15 Gm Bottle) 1 appl TOPICAL BID [facility]; Protocol Last Admin: 11/21/24 08:17 Dose: 1 appl Documented By: LUTHER Omeprazole (Omeprazole 40 Mg Capsule.) 40 mg PO DAILY@0630 [facility] Last Admin: 11/21/24 05:47 Dose: 40 mg Documented By: LLOYD Ondansetron HCl (Ondansetron Hcl 4 Mg/2 Ml Vial) 4 mg IVPUSH Q8H PRN PRN Reason: Nausea and Vomiting Oseltamivir Phosphate (Oseltamivir Phosphate 30 Mg Capsule) 30 mg PO BID [facility] Stop: 11/21/24 21:01 Last Admin: 11/21/24 08:16 Dose: 30 mg Documented By: LUTHER Pyridoxine HCl (Pyridoxine Hcl (Vitamin B6) 50 Mg Tablet) 100 mg PO DAILY [facility] Last Admin: 11/21/24 08:16 Dose: 100 mg Documented By: LUTHER Sertraline HCl (Sertraline Hcl 100 Mg Tablet) 100 mg PO DAILY [facility] Last Admin: 11/21/24 08:16 Dose: 100 mg Documented By: LUTHER Sodium Chloride (0.9 % Sodium Chloride Flush 3 Ml Syringe) 3 ml IVFLUSH QSHIFT [facility] Last Admin: 11/21/24 08:17 Dose: 3 ml Documented By: LUTHER Labs 11/17/24 08:15 11/21/24 07:52 Labs: Laboratory Results - last 24 hr 11/20/24 11/20/24 11/21/24 15:52 21:19 07:28 Anion Gap Estim Creat Clear Calc Estimated GFR POC Glucose 280 H 253 H 161 H Random Glucose Calcium B-Natriuretic Peptide 11/21/24 11/21/24 07:52 10:50 Anion Gap 14 Estim Creat Clear Calc 30.0 Estimated GFR 21 POC Glucose 287 H Random Glucose 180 H Calcium 8.5 B-Natriuretic Peptide 619 H Assessment and Plan (1) Acute hypoxic respiratory failure: Status: Acute (2) COPD exacerbation: Status: Acute (3) CHF exacerbation: Status: Acute (4) Hyperglycemia: Status: Acute (5) Hypokalemia: Status: Acute (6) Atrial fibrillation with rapid ventricular response: Status: Acute Plan 54-year-old female with a PMH significant for?CAD, anterior wall [place] in 2015, mild cardiomyopathy, HTN, insulin-dependent type 2 diabetes, HLD, 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 Pt will be admitted to the hospital for multiple significant issues, including acute hypoxic respiratory failure, new onset AFib with RVR, acute CHF exacerbation, acute COPD exacerbation, hyperglycemia, and MELODIE, all in the setting of acute influenza infection. New onset AFib with RVR Stable heart rate remains in AFib continue carvedilol 25 mg b.i.d., home dose patient was not taking it at home Continue Eliquis 5 mg p.o. b.i.d.dc asa Echocardiogram showed EF 35-40%, evidence of wall motion abnormality, indeterminate diastolic function, left atrium severely dilated Case discussed with Cardiology continue current medications since heart rate acceptable, not a candidate for Cardizem or digoxin due to LV dysfunction and renal dysfunction, will need WANDA guided cardioversion if need better heart rate control. Acute CHF with reduced EF exacerbation Shortness of breath improving, CXR on admission showed pulmonary edema , BNP remains elevated in 600 range Repeat chest x-ray showed passive venous congestion consider mild CHF superimposed pneumonic process not excluded Lasix was held due to MELODIE but since patient noted to be fluid overloaded with increased right atrial pressures cardio recommend to start Lasix drip 5 mg Will request for midline with triple lumen for lab draws due to difficulty drawing blood and IVs Monitor I/O, lytes, BNP, daily weights while being diuresed Acute hypoxic respiratory failure in the setting of COPD exacerbation from influenza infection not on home O2, wean as tolerated Continue Solu-Medrol, Xopenex, and guaifenesin Nicotine patch 14 mg transdermal MELODIE Creatinine 1.87 at time of presentation, baseline 0.90 Creatinine bumped to 2.47, and remains elevated Due to fluid overload resume IV Lasix and monitor BMP closely,,avoid nephrotoxins and hypotension Viral sepsis/influenza A Supportive care/oxygen and IV steroids Hypokalemia Repleted and normalized was Likely secondary to reduced p.o. intake and GI losses while taking hydrochlorothiazide, follow BMP Diabetes mellitus type 2 Hyperglycemia Apparently stopped checking sugars and using insulin over 1 year ago on her own Random glucose 685 at time of presentation, treated with 10 units of regular insulin in ED Blood sugar remains elevated likely due to steroids,Continue sliding scale insulin, diabetic diet and increase dose of Lantus to 25 units, adjusted insulin sliding scale A1c 13.5 Elevated troponins/history of CAD Initial troponin 43.5 with repeat flat at 45.5, no chest pain, EKG without ischemic changes Likely type 2 in the setting of above, continue aspirin and statin Echo showed wall motion abnormality, will need ischemia workup as per Cardiology HTN continue Coreg,, DC amlodipine follow BP GERD PPI Mood disorder Continue sertraline Class 2 obesity recommend low-calorie diet Full Code DVT Prophylaxis: On Eliquis Pt will require continued inpatient hospitalization for acute hypoxic respiratory failure, new onset AFib with RVR, acute CHF exacerbation, acute COPD exacerbation, hyperglycemia, and MELODIE, all in the setting of acute influenza infection Requiring close tele monitoring expert consultation and close electrolyte monitoring. Quality Stroke Does the patient have a stroke diagnosis?: No VTE Prior VTE?: No VTE Risk Level:: Medical - moderate - high VTE Device Contraindication: Treatment Not Indicated VTE Drug Contraindication: N/A - Med Ordered
[2024-11-21 16:11] LABS: Glucose, Whole Blood 304 mg/dL (60-115)
--- NOTE | 2024-11-21 17:03 | HO.MIDLINE ---
Midline Insertion MIDLINE INSERTION Diagnosis: Flu A, fluid overload, difficult iv access and lab draws Indication: IV lasix drip Pertinent Labs: Reviewed Discussion with regarding pt need for Lasix drip, frequent lab draws and difficult iv access/ midline placement. discussed with Dr Brower to trim a triple lumen PICC to midline length. This was deemed appropriate. Technique: Using sterile technique including cap and mask, glove and drape, the right arm was prepped and draped in the usual sterile fashion of full barrier technique with CHG. Using ultrasound guidance, right cephalic vein access was obtained . 5FR triple lumen PASV catheter trimmed to 10cm was positioned. The procedure was performed in rm [id number]. Ultrasound was used to document vein patency and for needle entry. A formal ultrasound picture was recorded. [employer] [employer] has released the line for use and it is currently dressed with a StatLock, Tegaderm, and CHG disc. Verification has been performed for blood return and line patency. Arm Circumference: 37cm Equipment: Seatwave PowerPicc Solo Catheter Type: 5Fr tripple lumen PASV catheter Lot #: [id number]
[2024-11-21 20:32] LABS: Glucose, Whole Blood 248 mg/dL (60-115)
[2024-11-21] MEDS: Insulin Glargine,Hum.rec.anlog 100 UNIT/ML 10 ML VIAL 25 UNIT SUBCUT (20:39)
[2024-11-22] VITALS (9 sets, daily range): BP systolic 118–135; BP diastolic 58–87; PULSE 67–112; RESP 17–23; TEMP 36.3–37.2; O2SAT 93–97; BMI 34.4
[2024-11-22] MEDS: Omeprazole 40 MG CAPSULE.DR PO (05:58)
[2024-11-22] MEDS: methylPREDNISolone Sod Succ 40 MG/ML VIAL 20 MG IVPUSH ×2 (05:58→17:10)
[2024-11-22] MEDS: levalbuterol HCL 1.25 MG/3 ML VIAL.NEB INHALE ×2 (07:01→11:18)
[2024-11-22 07:04] LABS: Hematocrit 37.2 % (37.0-47.0); Mean Corpuscular HGB Conc 32.3 g/dl (31.0-35.0); Mean Corpuscular Hemoglobin 28.6 pg (27.0-33.0); Mean Corpuscular Volume 88.8 fL (80.0-98.0); Mean Platelet Volume 11.4 fL (9.4-12.3); Platelet Count 397 X10*3/uL (160-400); Red Blood Count 4.19 X10*6/uL (4.20-5.50); Red Cell Distribution Width 13.1 % (11.0-16.0); White Blood Count 17.3 X10*3/uL (4.8-10.8)
[2024-11-22 07:13] LABS: Anion Gap 13 (12-20); Blood Urea Nitrogen 77 mg/dL (9-16); Calcium 8.4 mg/dL (8.4-10.2); Carbon Dioxide 27 mmol/L (22-29); Chloride 103 mmol/L (96-108); Creatinine Clr Calc Pharmacy 32.3; Estimated Glomerular Filt Rate 24; Glucose Random 141 mg/dL (60-115); Potassium 3.4 mmol/L (3.3-5.1); Sodium 140 mmol/L (135-145)
[2024-11-22 07:31] LABS: Glucose, Whole Blood 134 mg/dL (60-115)
[2024-11-22] MEDS: Pyridoxine HCl (Vitamin B6) 50 MG TABLET 100 MG PO (08:47)
[2024-11-22] MEDS: hydrOXYzine HCL 25 MG TABLET PO ×2 (08:48→20:51)
[2024-11-22] MEDS: carvediloL 25 MG TABLET PO ×2 (08:48→20:51)
[2024-11-22] MEDS: Gabapentin 100 MG CAPSULE 200 MG PO ×3 (08:49→20:51)
[2024-11-22] MEDS: Sertraline HCL 100 MG TABLET PO (08:49)
[2024-11-22] MEDS: Nicotine 14 MG PATCH.TD24 TRANSDERMA (08:49)
[2024-11-22] MEDS: Atorvastatin Calcium 80 MG TABLET PO (08:49)
[2024-11-22] MEDS: Apixaban 5 MG TABLET PO ×2 (08:49→20:51)
[2024-11-22] MEDS: Multivitamin TABLET 1 TAB PO (08:49)
[2024-11-22] MEDS: 0.9 % Sodium Chloride Flush 3 ML SYRINGE IVFLUSH ×2 (08:51→12:02)
--- NOTE | 2024-11-22 10:58 | MHC.CM.PN ---
Per ROUNDS discussion, Patient is not yet medically cleared for dc (IV Lasix drip); Patient may benefit from a PT Eval to assist with disposition. CM will follow.
--- NOTE | 2024-11-22 11:09 | PM.PNCARD ---
Subjective Subjective Date of Service: 11/22/24 Principal diagnosis: Atrial fibrillation, flu, MELODIE Interval history: Patient says she has been going to the bathroom without documented urine output. There was no urine output documented. She says she feels better compared to when she came in in terms of his shortness of breath. Overall output is difficult to measure. Patient remains in atrial fibrillation with controlled ventricular response. Blood pressure is stable. She denies any palpitations. Still using oxygen. Creatinine is improved Review of Systems Constitutional: Reports lethargy and Reports weakness Cardiovascular: Denies chest pain, Denies rapid heart rate, Reports leg edema, Denies lightheadedness, Denies Loss of Consciousness, Reports dyspnea and Reports dyspnea on exertion Respiratory: Reports cough, Reports dyspnea, Reports dyspnea on exertion and Reports wheezing Musculoskeletal: Reports no additional musculoskeletal complaints Reports system reviewed and no additional complaints, except as documented and Reports weakness Psychiatric: Reports no additional psychiatric complaints Allergic/Immunologic: Reports wheezing Physical Exam Vital Signs: Last Vital Signs Temp 97.6 F 11/22/24 07:12 Pulse 112 H 11/22/24 08:48 Resp 18 11/22/24 07:12 BP 135/85 11/22/24 07:12 Pulse Ox 97 11/22/24 07:12 O2 Del Method Nasal Cannula 11/22/24 07:12 O2 Flow Rate 3 11/22/24 07:12 BMI result Body Mass Index 34.4 Const General: cooperative and in distress mild and respiratory Nutritional Appearance: obese Orientation/consciousness: patient oriented x3 Neck Neck: Yes trachea midline and Yes supple Resp Effort & Inspection: normal respiratory effort Auscultation: wheezes Cardio Rate: regular rate Rhythm: abnormal rhythm irregularly irregular Heart sounds: S1 normal heart sound present, S2 normal heart sound present, no click, no gallops, no murmurs and no rubs GI Auscultation: normal bowel sounds Skin General skin exam: no rashes or lesions noted Neuro General: patient oriented x3 and no focal motor deficits Extrem General: No clubbing, No cyanosis and Yes edema Objective Labs and Meds 11/22/24 06:20 11/22/24 06:20 Lab results: Laboratory Results - last 24 hr 11/21/24 11/21/24 11/22/24 16:07 20:28 06:20 WBC 17.3 H RBC 4.19 L Hgb 12.0 Hct 37.2 MCV 88.8 MCH 28.6 MCHC 32.3 RDW 13.1 Plt Count 397 MPV 11.4 Absolute Nucleated RBC 0.000 Nucleated RBC % (auto) 0.0 Sodium 140 Potassium 3.4 Chloride 103 Carbon Dioxide 27 Anion Gap 13 BUN 77 H Creatinine 2.12 H Estim Creat Clear Calc 32.3 Estimated GFR 24 POC Glucose 304 H 248 H Random Glucose 141 H Calcium 8.4 11/22/24 07:16 WBC RBC Hgb Hct MCV MCH MCHC RDW Plt Count MPV Absolute Nucleated RBC Nucleated RBC % (auto) Sodium Potassium Chloride Carbon Dioxide Anion Gap BUN Creatinine Estim Creat Clear Calc Estimated GFR POC Glucose 134 H Random Glucose Calcium Progress Note: A&P Assessment and plan (1) CHF exacerbation: Status: Acute Assessment and Plan: CHF exacerbation in this middle-aged woman with LV systolic dysfunction which may be ischemic. Clinically still appears to be fluid overloaded. Renal function is still elevated. Intake and output chart is not accurately defined. This is difficult to manage her case overall. I would continue with IV Lasix drip. Strict intake and output chart needs to be pursued, discussed with nursing staff. Continue monitor renal function as well as BNP. Continue supportive care for underlying COPD with bronchodilators with pulmonary specific bronchodilators such as Xopenex. Continue oxygen therapy. Overall prognosis is guarded. Continue rate control with atrial fibrillation. (2) Atrial fibrillation with rapid ventricular response: Status: Acute Assessment and Plan: Atrial fibrillation with difficult control rate but appears to be overall borderline. Limited options given her renal failure as well as LV systolic dysfunction. Continue metoprolol therapy. Continue full oral anticoagulation. Will follow with you Time Spent With Patient Time: Total time managing care of this patient today ____ minutes. Progress Note: Quality Stroke Does the patient have a stroke diagnosis?: No Procedures Date of Service Date of Service: 11/22/24
[2024-11-22 11:20] LABS: Glucose, Whole Blood 284 mg/dL (60-115)
[2024-11-22] MEDS: Insulin Lispro 100 UNIT/ML 3 ML VIAL SUBCUT ×3 (12:01→21:42)
[2024-11-22] MEDS: Furosemide 200 MG in 0.9 % Sodium Chloride 80 ML IVCONT (12:02)
[2024-11-22] MEDS: Nystatin Powder 15 GM BOTTLE 1 APPL TOPICAL ×2 (12:03→21:43)
--- NOTE | 2024-11-22 15:38 | HO.PM.IMPN ---
Subjective Subjective Date of Service: 11/22/24 Interval History: Discussed with nursing staff; tolerant of Lasix drip. Poor compliance with output however states she feels much better since admission Review of Systems Denies chest pain Admits shortness of breath which is markedly improved since admit Denies nausea vomiting diarrhea Denies fever chills Physical Exam Vital Signs: Vital Signs: Last Vital Signs Temp 97.5 F 11/22/24 15:24 Pulse 95 11/22/24 15:24 Resp 18 11/22/24 15:24 BP 118/70 11/22/24 15:24 Pulse Ox 93 11/22/24 15:24 O2 Del Method Oxymask 11/22/24 15:24 O2 Flow Rate 3 11/22/24 15:24 BMI result Body Mass Index 34.4 Const: Other: Awake alert no acute distress Resp: Other: Bilateral basilar crackles to inferior scapular border Cardio: Other: No S4; positive S1-S2; no S3 murmurs rubs or gallops. Irregularly irregular GI: Other: Soft nontender nondistended normoactive bowel sounds Extrem: Other: edema bilaterally Objective Data Active Medications Acetaminophen (Acetaminophen 325 Mg Tablet) 650 mg PO Q6H PRN PRN Reason: Pain, Mild 1-3,fever,headache Apixaban (Apixaban 5 Mg Tablet) 5 mg PO BID [facility] Last Admin: 11/22/24 08:49 Dose: 5 mg Documented By: MARIJA Atorvastatin Calcium (Atorvastatin Calcium 80 Mg Tablet) 80 mg PO DAILY [facility] Last Admin: 11/22/24 08:49 Dose: 80 mg Documented By: MARIJA Calcium Carbonate (Calcium Carbonate 750 Mg Tab.Chew) 750 mg PO Q4H PRN PRN Reason: Heartburn Carvedilol (Carvedilol 25 Mg Tablet) 25 mg PO BID [facility]; Protocol Last Admin: 11/22/24 08:48 Dose: 25 mg Documented By: MARIJA Ergocalciferol (Ergocalciferol (Vitamin D2) 1,250 Mcg Capsule) 1,250 mcg PO SA [facility] Last Admin: 11/18/24 11:03 Dose: Not Given Documented By: DELIO Non-Admin Reason: Med Not Available Gabapentin (Gabapentin 100 Mg Capsule) 200 mg PO TID [facility] Last Admin: 11/22/24 14:25 Dose: 200 mg Documented By: MARIJA Glucose (Glucose Gel 15 Gm Gel..Gram.) 15 gm PO Q15M PRN; Protocol PRN Reason: per Hypoglycemia Standing Ord. Guaifenesin/Codeine Phosphate (Guaifen/Codeine Sf 200/20/10ml 10 Ml Liquid) 10 ml PO Q4H PRN PRN Reason: Cough Last Admin: 11/21/24 09:15 Dose: 10 ml Documented By: LUTHER Hydroxyzine HCl (Hydroxyzine Hcl 25 Mg Tablet) 25 mg PO BID [facility] Last Admin: 11/22/24 08:48 Dose: 25 mg Documented By: MARIJA Dextrose (D10) 250 mls @ 750 mls/hr IV Q15M PRN; Protocol PRN Reason: per Hypoglycemia Standing Ord. Furosemide 200 mg/ Sodium (Chloride) 100 mls @ 2.5 mls/hr IVCONT .Q24H [facility] Last Admin: 11/22/24 12:02 Dose: 5 mg/hr, 2.5 mls/hr Documented By: MARIJA Insulin Glargine (Insulin Glargine,Hum.Rec.Anlog 100 Unit/Ml 10 Ml Vial) 25 unit SUBCUT BEDTIME [facility] Last Admin: 11/21/24 20:39 Dose: 25 unit Documented By: CHAU Comments: Insulin Human Lispro (Insulin Lispro 100 Unit/Ml 3 Ml Vial) 0 unit SUBCUT QIDACHS [facility]; Protocol Last Admin: 11/22/24 12:01 Dose: 10 unit Documented By: MARIJA Levalbuterol HCl (Levalbuterol Hcl 1.25 Mg/3 Ml Vial.Neb) 1.25 mg INHALE RQ4H WHILE AWAKE [facility] Last Admin: 11/22/24 15:14 Dose: Not Given Documented By: TASNEEM Non-Admin Reason: Patient Refused Magnesium Hydroxide (Milk Of Magnesia 30 Ml Oral.Susp) 30 ml PO DAILY PRN PRN Reason: Constipation Melatonin (Melatonin 3 Mg Tablet) 6 mg PO BEDTIME PRN PRN Reason: Insomnia Methylprednisolone Sodium Succinate (Methylprednisolone Sod Succ 40 Mg/Ml Vial) 20 mg IVPUSH Q12H [facility] Last Admin: 11/22/24 05:58 Dose: 20 mg Documented By: CHAU Multivitamins/Vitamin C (Multivitamin Tablet) 1 tab PO DAILY [facility] Last Admin: 11/22/24 08:49 Dose: 1 tab Documented By: MARIJA Nicotine (Nicotine 14 Mg Patch.Td24) 14 mg TRANSDERMA DAILY [facility] Last Admin: 11/22/24 08:49 Dose: 14 mg Documented By: MARIJA Nystatin (Nystatin Powder 15 Gm Bottle) 1 appl TOPICAL BID [facility]; Protocol Last Admin: 11/22/24 12:03 Dose: 1 appl Documented By: MARIJA Omeprazole (Omeprazole 40 Mg Capsule.Dr) 40 mg PO DAILY@0630 [facility] Last Admin: 11/22/24 05:58 Dose: 40 mg Documented By: CHAU Ondansetron HCl (Ondansetron Hcl 4 Mg/2 Ml Vial) 4 mg IVPUSH Q8H PRN PRN Reason: Nausea and Vomiting Pyridoxine HCl (Pyridoxine Hcl (Vitamin B6) 50 Mg Tablet) 100 mg PO DAILY [facility] Last Admin: 11/22/24 08:47 Dose: 100 mg Documented By: MARIJA Sertraline HCl (Sertraline Hcl 100 Mg Tablet) 100 mg PO DAILY [facility] Last Admin: 11/22/24 08:49 Dose: 100 mg Documented By: MARIJA Sodium Chloride (0.9 % Sodium Chloride Flush 3 Ml Syringe) 3 ml IVFLUSH QSHIFT [facility] Last Admin: 11/22/24 12:02 Dose: 3 ml Documented By: MARIJA Sodium Chloride (0.9 % Sodium Chloride Flush 10 Ml Syringe) 5 ml IVFLUSH TID [facility] Last Admin: 11/22/24 12:07 Dose: Not Given Documented By: MARIJA Non-Admin Reason: IV Running Labs 11/22/24 06:20 11/22/24 06:20 Labs: Laboratory Results - last 24 hr 11/21/24 11/21/24 11/22/24 16:07 20:28 06:20 MCV 88.8 MCH 28.6 MCHC 32.3 RDW 13.1 Plt Count 397 MPV 11.4 Absolute Nucleated RBC 0.000 Nucleated RBC % (auto) 0.0 Anion Gap 13 Estim Creat Clear Calc 32.3 Estimated GFR 24 POC Glucose 304 H 248 H Random Glucose 141 H Calcium 8.4 11/22/24 11/22/24 07:16 11:17 MCV MCH MCHC RDW Plt Count MPV Absolute Nucleated RBC Nucleated RBC % (auto) Anion Gap Estim Creat Clear Calc Estimated GFR POC Glucose 134 H 284 H Random Glucose Calcium Assessment and Plan (1) Atrial fibrillation with rapid ventricular response: Status: Acute (2) Acute hypoxic respiratory failure: Status: Acute (3) CHF exacerbation: Status: Acute Plan 54-year-old female with a PMH significant for?CAD, anterior wall OR in 2015, mild cardiomyopathy, HTN, insulin-dependent type 2 diabetes, HLD, 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 Pt will be admitted to the hospital for multiple significant issues, including acute hypoxic respiratory failure, new onset AFib with RVR, acute CHF exacerbation, acute COPD exacerbation, hyperglycemia, and MELODIE, all in the setting of acute influenza infection. 1.New onset AFib with RVR -acceptable rate control on current therapies -continue carvedilol 25 mg b.i.d. -ontinue Eliquis 5 mg/dc asa -Echocardiogram showed EF 35-40%, evidence of wall motion abnormality, indeterminate diastolic function, left atrium severely dilated 2.Acute CHF with reduced EF exacerbation -continue IV Lasix drip as ordered -strict I&Os -follow renals/divalents 3.Acute hypoxic respiratory failure in the setting of COPD exacerbation from influenza infection -continue Solu-Medrol/ Xopenex/guaifenesin -titrate O2 to maintain sats greater than equal to 92% 4.MELODIE -remains elevated -continue Lasix drip as above -follow renals/divalents Viral sepsis/influenza A 5.Diabetes mellitus type 2 -improved control on current therapy -lispro correctional scale -adjust as indicated 6. Hypertension -acceptable control on current therapies -adjust as indicated Full Code Eliquis Pt will require continued inpatient hospitalization for acute hypoxic respiratory failure, new onset AFib with RVR, acute CHF exacerbation, acute COPD exacerbation, hyperglycemia, and MELODIE, all in the setting of acute influenza infection Requiring close tele monitoring expert consultation and close electrolyte monitoring. Quality Stroke Does the patient have a stroke diagnosis?: No VTE Prior VTE?: No VTE Risk Level:: Medical - moderate - high VTE Device Contraindication: Treatment Not Indicated VTE Drug Contraindication: N/A - Med Ordered
[2024-11-22 16:10] LABS: Glucose, Whole Blood 271 mg/dL (60-115)
[2024-11-22] MEDS: 0.9 % Sodium Chloride Flush 10 ML SYRINGE 5 ML IVFLUSH (17:11)
[2024-11-22] MEDS: Acetaminophen 325 MG TABLET 650 MG PO (20:51)
[2024-11-22 21:13] LABS: Glucose, Whole Blood 267 mg/dL (60-115)
[2024-11-22] MEDS: Insulin Glargine,Hum.rec.anlog 100 UNIT/ML 10 ML VIAL 25 UNIT SUBCUT (21:41)
[2024-11-23] VITALS (9 sets, daily range): BP systolic 111–147; BP diastolic 56–81; PULSE 80–103; RESP 16–24; TEMP 36–36.8; O2SAT 92–97; BMI 33.5
[2024-11-23] MEDS: methylPREDNISolone Sod Succ 40 MG/ML VIAL 20 MG IVPUSH ×2 (06:03→16:46)
[2024-11-23] MEDS: Acetaminophen 325 MG TABLET 650 MG PO (06:03)
[2024-11-23] MEDS: Omeprazole 40 MG CAPSULE.DR PO (06:03)
[2024-11-23 07:03] LABS: Hematocrit 39.2 % (37.0-47.0); Hemoglobin 12.5 g/dl (12.0-16.0); Mean Corpuscular HGB Conc 31.9 g/dl (31.0-35.0); Mean Corpuscular Hemoglobin 28.5 pg (27.0-33.0); Mean Corpuscular Volume 89.3 fL (80.0-98.0); Mean Platelet Volume 11.3 fL (9.4-12.3); Platelet Count 422 X10*3/uL (160-400); Red Blood Count 4.39 X10*6/uL (4.20-5.50); Red Cell Distribution Width 12.7 % (11.0-16.0); White Blood Count 17.4 X10*3/uL (4.8-10.8)
[2024-11-23 07:13] LABS: Alanine Aminotransferase 21 U/L (0-31); Albumin Level 2.7 g/dL (3.5-5.0); Alkaline Phosphatase 134 U/L (39-117); Anion Gap 12 (12-20); Aspartate Amino Transferase 16 U/L (5-31); Bilirubin Total 0.3 mg/dL (0.0-1.0); Blood Urea Nitrogen 76 mg/dL (9-16); Calcium 8.6 mg/dL (8.4-10.2); Carbon Dioxide 34 mmol/L (22-29); Chloride 103 mmol/L (96-108); Creatinine Clr Calc Pharmacy 36.4; Estimated Glomerular Filt Rate 28; Glucose Fasting 85 mg/dL (60-99); Potassium 3.6 mmol/L (3.3-5.1); Sodium 145 mmol/L (135-145); Total Protein 6.2 g/dL (6.5-8.0)
[2024-11-23 07:30] LABS: Band Neutrophils Percent 3 % (3-5); Lymphocytes Absolute Manual 2.3 X10*3/uL (1.2-4.9); Lymphocytes Percent Manual 13 % (20-40); Metamyelocytes Absolute 0.9 X10*3/uL; Metamyelocytes Percent 5 %; Monocytes Absolute Manual 0.7 X10*3/uL (0.1-1.2); Monocytes Percent Manual 4 % (2-11); Neutrophils Absolute Manual 13.6 X10*3/uL (2.0-8.3); Neutrophils Percent Manual 75 % (45-73)
[2024-11-23 07:35] LABS: Acanthocytes 1+ (0-2) /OIF; Burr Cells 1+ (0-2) /OIF; Platelet Estimate SLIGHTLY INCREASED (NORMAL); Platelet Morphology Comment NORMAL; RBC Morphology NOTED
[2024-11-23 08:17] LABS: Glucose, Whole Blood 85 mg/dL (60-115)
[2024-11-23] MEDS: Nicotine 14 MG PATCH.TD24 TRANSDERMA (09:01)
[2024-11-23] MEDS: Sertraline HCL 100 MG TABLET PO (09:02)
[2024-11-23] MEDS: Pyridoxine HCl (Vitamin B6) 50 MG TABLET 100 MG PO (09:02)
[2024-11-23] MEDS: Multivitamin TABLET 1 TAB PO (09:02)
[2024-11-23] MEDS: Atorvastatin Calcium 80 MG TABLET PO (09:02)
[2024-11-23] MEDS: Apixaban 5 MG TABLET PO ×2 (09:02→20:59)
[2024-11-23] MEDS: Gabapentin 100 MG CAPSULE 200 MG PO ×3 (09:02→20:59)
[2024-11-23] MEDS: hydrOXYzine HCL 25 MG TABLET PO ×2 (09:02→20:59)
[2024-11-23] MEDS: carvediloL 25 MG TABLET PO ×2 (09:02→20:59)
[2024-11-23] MEDS: Nystatin Powder 15 GM BOTTLE 1 APPL TOPICAL ×2 (09:10→21:02)
[2024-11-23] MEDS: 0.9 % Sodium Chloride Flush 10 ML SYRINGE 5 ML IVFLUSH ×3 (09:12→21:03)
--- NOTE | 2024-11-23 10:07 | P.PNCA_ITS ---
Subjective Subjective Date of Service: 11/23/24 Principal diagnosis: Atrial fibrillation, flu, MELODIE Interval history: Greer says that she is feeling better. Has been diuresing well although the negative balance only 300 cc on IV Lasix drip clinically she has improved. Kidney function is improving. Heart rate is borderline controlled. She denies any palpitations. She says she is moving her mucus better. Review of Systems Constitutional: Reports fatigue Eyes: Reports no additional eye complaints Cardiovascular: Denies chest pain, Denies rapid heart rate, Reports leg edema, Denies Loss of Consciousness and Reports dyspnea on exertion Respiratory: Reports cough, Reports excessive phlegm production and Reports dyspnea on exertion Endocrine: Reports fatigue Physical Exam Vital Signs: Last Vital Signs Temp 97.8 F 11/23/24 07:40 Pulse 80 11/23/24 07:40 Resp 16 11/23/24 07:40 BP 111/72 11/23/24 07:40 Pulse Ox 93 11/23/24 07:40 O2 Del Method Oxymask 11/23/24 07:40 O2 Flow Rate 2.5 11/23/24 07:40 BMI result Body Mass Index 33.5 Const General: cooperative, comfortable and no acute distress Nutritional Appearance: obese Orientation/consciousness: patient oriented x3 Neck Neck: Yes trachea midline and Yes supple Resp Effort & Inspection: normal respiratory effort Auscultation: crackles (Coarse crackles at right base) and diminished lung sounds Cardio Rate: regular rate Rhythm: abnormal rhythm irregularly irregular Heart sounds: S1 normal heart sound present, S2 normal heart sound present, no click, no gallops, no murmurs and no rubs GI Auscultation: normal bowel sounds Skin General skin exam: no rashes or lesions noted Neuro General: patient oriented x3 and no focal motor deficits Extrem General: No clubbing, No cyanosis and Yes edema Objective Labs and Meds 11/23/24 06:41 11/23/24 06:41 Lab results: Laboratory Results - last 24 hr 11/22/24 11/22/24 11/22/24 11:17 16:06 20:57 WBC RBC Hgb Hct MCV MCH MCHC RDW Plt Count MPV Immature Gran % (Auto) Neut % (Auto) Lymph % (Auto) [place] % (Auto) Eos % (Auto) Baso % (Auto) Lymph # (Auto) [place] # (Auto) Eos # (Auto) Baso # (Auto) Abs Immat Gran (auto) Absolute Neuts (auto) Absolute Nucleated RBC Nucleated RBC % (auto) Neutrophils % (Manual) Band Neutrophils % Lymphocytes % (Manual) Monocytes % (Manual) Metamyelocytes % Abs Neuts (Manual) Lymphocytes # (Manual) Monocytes # (Manual) Metamyelocytes # Platelet Estimate Plt Morphology Comment RBC Morphology Callery Cells Acanthocytes (Spur) Sodium Potassium Chloride Carbon Dioxide Anion Gap BUN Creatinine Estim Creat Clear Calc Estimated GFR POC Glucose 284 H 271 H 267 H Fasting Glucose Calcium Total Bilirubin AST ALT Alkaline Phosphatase Total Protein Albumin 11/23/24 11/23/24 06:41 08:14 WBC 17.4 H RBC 4.39 Hgb 12.5 Hct 39.2 MCV 89.3 MCH 28.5 MCHC 31.9 RDW 12.7 Plt Count 422 H MPV 11.3 Immature Gran % (Auto) Cancelled Neut % (Auto) Cancelled Lymph % (Auto) Cancelled [place] % (Auto) Cancelled Eos % (Auto) Cancelled Baso % (Auto) Cancelled Lymph # (Auto) Cancelled [place] # (Auto) Cancelled Eos # (Auto) Cancelled Baso # (Auto) Cancelled Abs Immat Gran (auto) Cancelled Absolute Neuts (auto) Cancelled Absolute Nucleated RBC 0.000 Nucleated RBC % (auto) 0.0 Neutrophils % (Manual) 75 H Band Neutrophils % 3 Lymphocytes % (Manual) 13 L Monocytes % (Manual) 4 Metamyelocytes % 5 Abs Neuts (Manual) 13.6 H Lymphocytes # (Manual) 2.3 Monocytes # (Manual) 0.7 Metamyelocytes # 0.9 Platelet Estimate SLIGHTLY INCREASED Plt Morphology Comment NORMAL RBC Morphology NOTED [place] Cells 1+ (0-2) Acanthocytes (Spur) 1+ (0-2) Sodium 145 Potassium 3.6 Chloride 103 Carbon Dioxide 34 H Anion Gap 12 BUN 76 H Creatinine 1.86 H Estim Creat Clear Calc 36.4 Estimated GFR 28 POC Glucose 85 Fasting Glucose 85 Calcium 8.6 Total Bilirubin 0.3 AST 16 ALT 21 Alkaline Phosphatase 134 H Total Protein 6.2 L Albumin 2.7 L Progress Note: A&P Assessment and plan (1) CHF exacerbation: Status: Acute Assessment and Plan: CHF exacerbation with worsening LV ejection fraction question ischemic in a patient admitted with acute hypoxemic respiratory failure in addition to COPD exacerbation clinical responding to diuresis with improvement in renal function. Continue IV diuresis. Strict intake and output chart needs to be maintained. Discussed with the nursing staff. Follow-up BNP and BNP tomorrow. Replace electrolytes as needed. Continue carvedilol as neurohormonal modulator as the rate control her. Hold off on any other angiotensin receptor antagonist due to renal insufficiency which was acute. Continue COPD management. (2) Atrial fibrillation with rapid ventricular response: Status: Acute Assessment and Plan: Atrial fibrillation borderline rate controlled. Given the renal function is improving will give couple of dose IV digoxin 0.25 mg IV push q.6 hours. Continue monitor renal function tomorrow if further improve will start on p.o. digoxin. Continue carvedilol. Continue full oral anticoagulation with Eliquis. Will follow with you. Thank you for allowing me to partake in her care Time Spent With Patient Time: Total time managing care of this patient today ____ minutes. Progress Note: Quality Stroke Does the patient have a stroke diagnosis?: No Procedures Date of Service Date of Service: 11/23/24
[2024-11-23] MEDS: Furosemide 200 MG in 0.9 % Sodium Chloride 80 ML IVCONT (11:22)
[2024-11-23] MEDS: Insulin Lispro 100 UNIT/ML 3 ML VIAL SUBCUT ×3 (11:22→20:59)
[2024-11-23] MEDS: levalbuterol HCL 1.25 MG/3 ML VIAL.NEB INHALE ×3 (11:30→20:36)
[2024-11-23 11:53] LABS: Glucose, Whole Blood 276 mg/dL (60-115)
[2024-11-23] MEDS: Digoxin 0.5 MG/2 ML AMPUL 0.25 MG IVPUSH ×2 (14:17→19:24)
--- NOTE | 2024-11-23 16:24 | P.PNIM_ITS ---
Subjective Subjective Date of Service: 11/23/24 Interval History: Slowly improving. Rate control remains labile Review of Systems Denies chest pain Admits shortness of breath which is markedly improved since admit Denies nausea vomiting diarrhea Denies fever chills Physical Exam 2 Vital Signs: Vital Signs: Last Vital Signs Temp 97.0 F 11/23/24 11:12 Pulse 97 11/23/24 15:34 Resp 18 11/23/24 15:34 BP 124/71 11/23/24 11:12 Pulse Ox 94 11/23/24 11:12 O2 Del Method Oxymask 11/23/24 11:12 O2 Flow Rate 1 11/23/24 11:12 BMI result Body Mass Index 33.5 Const: Other: Awake alert no acute distress Resp: Other: Bilateral basilar crackles to inferior scapular border Cardio: Other: No S4; positive S1-S2; no S3 murmurs rubs or gallops. Irregularly irregular GI: Other: Soft nontender nondistended normoactive bowel sounds Extrem: Other: edema bilaterally Objective Data Active Medications Acetaminophen (Acetaminophen 325 Mg Tablet) 650 mg PO Q6H PRN PRN Reason: Pain, Mild 1-3,fever,headache Last Admin: 11/23/24 06:03 Dose: 650 mg Documented By: CHAU Apixaban (Apixaban 5 Mg Tablet) 5 mg PO BID [facility] Last Admin: 11/23/24 09:02 Dose: 5 mg Documented By: ADI Atorvastatin Calcium (Atorvastatin Calcium 80 Mg Tablet) 80 mg PO DAILY [facility] Last Admin: 11/23/24 09:02 Dose: 80 mg Documented By: ADI Calcium Carbonate (Calcium Carbonate 750 Mg Tab.Chew) 750 mg PO Q4H PRN PRN Reason: Heartburn Carvedilol (Carvedilol 25 Mg Tablet) 25 mg PO BID [facility]; Protocol Last Admin: 11/23/24 09:02 Dose: 25 mg Documented By: ADI Digoxin (Digoxin 0.5 Mg/2 Ml Ampul) 0.25 mg IVPUSH Q6H [facility]; Protocol Stop: 11/23/24 18:01 Last Admin: 11/23/24 14:17 Dose: 0.25 mg Documented By: ADI Ergocalciferol (Ergocalciferol (Vitamin D2) 1,250 Mcg Capsule) 1,250 mcg PO SA [facility] Last Admin: 11/18/24 11:03 Dose: Not Given Documented By: FELIPAC Non-Admin Reason: Med Not Available Gabapentin (Gabapentin 100 Mg Capsule) 200 mg PO TID [facility] Last Admin: 11/23/24 14:16 Dose: 200 mg Documented By: ADI Glucose (Glucose Gel 15 Gm Gel..Gram.) 15 gm PO Q15M PRN; Protocol PRN Reason: per Hypoglycemia Standing Ord. Guaifenesin/Codeine Phosphate (Guaifen/Codeine Sf 200/20/10ml 10 Ml Liquid) 10 ml PO Q4H PRN PRN Reason: Cough Last Admin: 11/21/24 09:15 Dose: 10 ml Documented By: LUTHER Hydroxyzine HCl (Hydroxyzine Hcl 25 Mg Tablet) 25 mg PO BID [facility] Last Admin: 11/23/24 09:02 Dose: 25 mg Documented By: ADI Dextrose (D10) 250 mls @ 750 mls/hr IV Q15M PRN; Protocol PRN Reason: per Hypoglycemia Standing Ord. Furosemide 200 mg/ Sodium (Chloride) 100 mls @ 2.5 mls/hr IVCONT .Q24H [facility] Last Admin: 11/23/24 11:22 Dose: 5 mg/hr, 2.5 mls/hr Documented By: ADI Insulin Glargine (Insulin Glargine,Hum.Rec.Anlog 100 Unit/Ml 10 Ml Vial) 25 unit SUBCUT BEDTIME [facility] Last Admin: 11/22/24 21:41 Dose: 25 unit Documented By: RANDI Insulin Human Lispro (Insulin Lispro 100 Unit/Ml 3 Ml Vial) 0 unit SUBCUT QIDACHS [facility]; Protocol Last Admin: 11/23/24 11:22 Dose: 10 unit Documented By: ADI Levalbuterol HCl (Levalbuterol Hcl 1.25 Mg/3 Ml Vial.Neb) 1.25 mg INHALE RQ4H WHILE AWAKE [facility] Last Admin: 11/23/24 15:32 Dose: 1.25 mg Documented By: KEERTHI Magnesium Hydroxide (Milk Of Magnesia 30 Ml Oral.Susp) 30 ml PO DAILY PRN PRN Reason: Constipation Melatonin (Melatonin 3 Mg Tablet) 6 mg PO BEDTIME PRN PRN Reason: Insomnia Methylprednisolone Sodium Succinate (Methylprednisolone Sod Succ 40 Mg/Ml Vial) 20 mg IVPUSH Q12H [facility] Last Admin: 11/23/24 06:03 Dose: 20 mg Documented By: CHAU Multivitamins/Vitamin C (Multivitamin Tablet) 1 tab PO DAILY [facility] Last Admin: 11/23/24 09:02 Dose: 1 tab Documented By: ADI Nicotine (Nicotine 14 Mg Patch.Td24) 14 mg TRANSDERMA DAILY [facility] Last Admin: 11/23/24 09:01 Dose: 14 mg Documented By: ADI Nystatin (Nystatin Powder 15 Gm Bottle) 1 appl TOPICAL BID [facility]; Protocol Last Admin: 11/23/24 09:10 Dose: 1 appl Documented By: ADI Omeprazole (Omeprazole 40 Mg Capsule.Dr) 40 mg PO DAILY@0630 [facility] Last Admin: 11/23/24 06:03 Dose: 40 mg Documented By: CHAU Ondansetron HCl (Ondansetron Hcl 4 Mg/2 Ml Vial) 4 mg IVPUSH Q8H PRN PRN Reason: Nausea and Vomiting Pyridoxine HCl (Pyridoxine Hcl (Vitamin B6) 50 Mg Tablet) 100 mg PO DAILY [facility] Last Admin: 11/23/24 09:02 Dose: 100 mg Documented By: ADI Sertraline HCl (Sertraline Hcl 100 Mg Tablet) 100 mg PO DAILY [facility] Last Admin: 11/23/24 09:02 Dose: 100 mg Documented By: ADI Sodium Chloride (0.9 % Sodium Chloride Flush 3 Ml Syringe) 3 ml IVFLUSH QSHIFT [facility] Last Admin: 11/23/24 14:18 Dose: Not Given Documented By: ADI Non-Admin Reason: see 5mL order/no peripheral access at this ti Sodium Chloride (0.9 % Sodium Chloride Flush 10 Ml Syringe) 5 ml IVFLUSH TID [facility] Last Admin: 11/23/24 14:17 Dose: 5 ml Documented By: ADI Labs 11/23/24 06:41 11/23/24 06:41 Labs: Laboratory Results - last 24 hr 11/22/24 11/23/24 11/23/24 20:57 06:41 08:14 MCV 89.3 MCH 28.5 MCHC 31.9 RDW 12.7 Plt Count 422 H MPV 11.3 Immature Gran % (Auto) Cancelled Neut % (Auto) Cancelled Lymph % (Auto) Cancelled [place] % (Auto) Cancelled Eos % (Auto) Cancelled Baso % (Auto) Cancelled Lymph # (Auto) Cancelled [place] # (Auto) Cancelled Eos # (Auto) Cancelled Baso # (Auto) Cancelled Abs Immat Gran (auto) Cancelled Absolute Neuts (auto) Cancelled Absolute Nucleated RBC 0.000 Nucleated RBC % (auto) 0.0 Neutrophils % (Manual) 75 H Band Neutrophils % 3 Lymphocytes % (Manual) 13 L Monocytes % (Manual) 4 Metamyelocytes % 5 Abs Neuts (Manual) 13.6 H Lymphocytes # (Manual) 2.3 Monocytes # (Manual) 0.7 Metamyelocytes # 0.9 Platelet Estimate SLIGHTLY INCREASED Plt Morphology Comment NORMAL RBC Morphology NOTED Shanna Cells 1+ (0-2) Acanthocytes (Spur) 1+ (0-2) Anion Gap 12 Estim Creat Clear Calc 36.4 Estimated GFR 28 POC Glucose 267 H 85 Fasting Glucose 85 Calcium 8.6 Total Bilirubin 0.3 AST 16 ALT 21 Alkaline Phosphatase 134 H Total Protein 6.2 L Albumin 2.7 L 11/23/24 11:14 MCV MCH MCHC RDW Plt Count MPV Immature Gran % (Auto) Neut % (Auto) Lymph % (Auto) [place] % (Auto) Eos % (Auto) Baso % (Auto) Lymph # (Auto) [place] # (Auto) Eos # (Auto) Baso # (Auto) Abs Immat Gran (auto) Absolute Neuts (auto) Absolute Nucleated RBC Nucleated RBC % (auto) Neutrophils % (Manual) Band Neutrophils % Lymphocytes % (Manual) Monocytes % (Manual) Metamyelocytes % Abs Neuts (Manual) Lymphocytes # (Manual) Monocytes # (Manual) Metamyelocytes # Platelet Estimate Plt Morphology Comment RBC Morphology [place] Cells Acanthocytes (Spur) Anion Gap Estim Creat Clear Calc Estimated GFR POC Glucose 276 H Fasting Glucose Calcium Total Bilirubin AST ALT Alkaline Phosphatase Total Protein Albumin Microbiology Microbiology Results: Microbiology 11/17/24 14:38 Blood Culture - Final Blood - Venous No growth after 5 days. 11/17/24 13:56 Blood Culture - Final Blood - Venous No growth after 5 days. 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 Pt will be admitted to the hospital for multiple significant issues, including acute hypoxic respiratory failure, new onset AFib with RVR, acute CHF exacerbation, acute COPD exacerbation, hyperglycemia, and MELODIE, all in the setting of acute influenza infection. 1.New onset AFib with RVR -borderline rate control on current therapies -continue carvedilol 25 mg b.i.d. -ontinue Eliquis 5 mg/dc asa -Echocardiogram showed EF 35-40%, evidence of wall motion abnormality, indeterminate diastolic function, left atrium severely dilated -dig load 2.Acute CHF with reduced EF exacerbation -continue IV Lasix drip as ordered -strict I&Os -follow renals/divalents 3.Acute hypoxic respiratory failure in the setting of COPD exacerbation from influenza infection -continue Solu-Medrol/ Xopenex/guaifenesin -titrate O2 to maintain sats greater than equal to 92% 4.MELODIE -remains elevated -continue Lasix drip as above -follow renals/divalents Viral sepsis/influenza A 5.Diabetes mellitus type 2 -improved control on current therapy -lispro correctional scale -adjust as indicated 6. Hypertension -acceptable control on current therapies -adjust as indicated Full Code Eliquis Pt will require continued inpatient hospitalization for acute hypoxic respiratory failure, new onset AFib with RVR, acute CHF exacerbation, acute COPD exacerbation, hyperglycemia, and MELODIE, all in the setting of acute influenza infection Requiring close tele monitoring expert consultation and close electrolyte monitoring. Quality Stroke Does the patient have a stroke diagnosis?: No VTE Prior VTE?: No VTE Risk Level:: Medical - moderate - high VTE Device Contraindication: Treatment Not Indicated VTE Drug Contraindication: N/A - Med Ordered
[2024-11-23 16:40] LABS: Glucose, Whole Blood 236 mg/dL (60-115)
[2024-11-23 20:55] LABS: Glucose, Whole Blood 287 mg/dL (60-115)
[2024-11-23] MEDS: Insulin Glargine,Hum.rec.anlog 100 UNIT/ML 10 ML VIAL 25 UNIT SUBCUT (20:59)
[2024-11-24] VITALS (10 sets, daily range): BP systolic 122–150; BP diastolic 58–80; PULSE 64–103; RESP 16–20; TEMP 36–36.6; O2SAT 64–100; BMI 33.5
[2024-11-24] MEDS: Omeprazole 40 MG CAPSULE.DR PO (06:25)
[2024-11-24] MEDS: methylPREDNISolone Sod Succ 40 MG/ML VIAL 20 MG IVPUSH ×2 (06:25→17:39)
[2024-11-24 07:18] LABS: Glucose, Whole Blood 160 mg/dL (60-115)
[2024-11-24 07:23] LABS: Hematocrit 41.5 % (37.0-47.0); Hemoglobin 13.5 g/dl (12.0-16.0); Mean Corpuscular HGB Conc 32.5 g/dl (31.0-35.0); Mean Corpuscular Hemoglobin 28.8 pg (27.0-33.0); Mean Corpuscular Volume 88.5 fL (80.0-98.0); Mean Platelet Volume 11.2 fL (9.4-12.3); Platelet Count 369 X10*3/uL (160-400); Red Blood Count 4.69 X10*6/uL (4.20-5.50); Red Cell Distribution Width 12.8 % (11.0-16.0); White Blood Count 17.6 X10*3/uL (4.8-10.8)
[2024-11-24 07:49] LABS: Alanine Aminotransferase 22 U/L (0-31); Albumin Level 2.8 g/dL (3.5-5.0); Alkaline Phosphatase 130 U/L (39-117); Aspartate Amino Transferase 17 U/L (5-31); Bilirubin Total 0.2 mg/dL (0.0-1.0); Blood Urea Nitrogen 66 mg/dL (9-16); Calcium 8.6 mg/dL (8.4-10.2); Creatinine Clr Calc Pharmacy 45.1; Estimated Glomerular Filt Rate 36; Glucose Fasting 166 mg/dL (60-99); Total Protein 6.3 g/dL (6.5-8.0)
[2024-11-24] MEDS: levalbuterol HCL 1.25 MG/3 ML VIAL.NEB INHALE ×3 (07:59→20:14)
[2024-11-24 08:01] LABS: Anion Gap 15 (12-20); Carbon Dioxide 31 mmol/L (22-29); Chloride 100 mmol/L (96-108); Potassium 2.9 mmol/L (3.3-5.1); Sodium 143 mmol/L (135-145)
[2024-11-24 08:12] LABS: Band Neutrophils Percent 1 % (3-5); Eosinophils Absolute Manual 0.2 X10*3/uL (0.0-0.4); Eosinophils Percent Manual 1 % (0-4); Metamyelocytes Absolute 0.2 X10*3/uL; Metamyelocytes Percent 1 %; Monocytes Absolute Manual 0.9 X10*3/uL (0.1-1.2); Monocytes Percent Manual 5 % (2-11); Myelocytes Absolute 0.4 X10*/uL; Myelocytes Percent 2 %
[2024-11-24 08:15] LABS: Lymphocytes Absolute Manual 2.1 X10*3/uL (1.2-4.9); Lymphocytes Percent Manual 12 % (20-40); Neutrophils Absolute Manual 13.9 X10*3/uL (2.0-8.3); Neutrophils Percent Manual 78 % (45-73)
[2024-11-24 08:16] LABS: Burr Cells 2+ (3-5) /OIF; Platelet Estimate SLIGHTLY INCREASED (NORMAL); Platelet Morphology Comment NORMAL; RBC Morphology NOTED
[2024-11-24] MEDS: Insulin Lispro 100 UNIT/ML 3 ML VIAL SUBCUT ×4 (08:40→20:51)
[2024-11-24] MEDS: Atorvastatin Calcium 80 MG TABLET PO (08:41)
[2024-11-24] MEDS: hydrOXYzine HCL 25 MG TABLET PO ×2 (08:41→20:24)
[2024-11-24] MEDS: carvediloL 25 MG TABLET PO ×2 (08:41→20:25)
[2024-11-24] MEDS: Multivitamin TABLET 1 TAB PO (08:41)
[2024-11-24] MEDS: Sertraline HCL 100 MG TABLET PO (08:41)
[2024-11-24] MEDS: Pyridoxine HCl (Vitamin B6) 50 MG TABLET 100 MG PO (08:41)
[2024-11-24] MEDS: Apixaban 5 MG TABLET PO ×2 (08:41→20:24)
[2024-11-24] MEDS: Nicotine 14 MG PATCH.TD24 TRANSDERMA (08:41)
[2024-11-24] MEDS: Gabapentin 100 MG CAPSULE 200 MG PO ×3 (08:41→20:24)
[2024-11-24] MEDS: Potassium Chloride Packet 20 MEQ PACKET 40 MEQ PO ×2 (08:42→20:24)
[2024-11-24] MEDS: Nystatin Powder 15 GM BOTTLE 1 APPL TOPICAL ×2 (08:46→20:26)
[2024-11-24] MEDS: 0.9 % Sodium Chloride Flush 10 ML SYRINGE 5 ML IVFLUSH ×3 (08:47→20:25)
[2024-11-24 09:36] LABS: B Type Natriuretic Peptide 291 pg/mL (<100)
--- NOTE | 2024-11-24 09:43 | PM.PNCARD ---
Subjective Subjective Date of Service: 11/24/24 Principal diagnosis: Atrial fibrillation, flu, MELODIE Interval history: Patient says she is breathing a lot better. She does not need oxygen while she was awake but noted to have low oxygen level when she is resting. She denies any palpitations. Received 2 doses of digoxin. Rate is better controlled. Creatinine is improved significantly. Denies any palpitations. Had a negative balance reported of 800 cc overnight. Review of Systems Constitutional: Reports fatigue Eyes: Reports no additional eye complaints Cardiovascular: Reports dyspnea on exertion Respiratory: Reports dyspnea on exertion and Reports wheezing Gastrointestinal: Reports no additional gastrointestinal complaints Musculoskeletal: Reports no additional musculoskeletal complaints Reports system reviewed and no additional complaints, except as documented Endocrine: Reports no additional endocrine complaints and Reports fatigue Allergic/Immunologic: Reports wheezing Physical Exam Vital Signs: Last Vital Signs Temp 96.8 F 11/24/24 07:32 Pulse 77 11/24/24 08:00 Resp 18 11/24/24 08:00 BP 126/68 11/24/24 07:32 Pulse Ox 94 11/24/24 07:32 O2 Del Method Oxymask 11/24/24 07:32 O2 Flow Rate 1 11/24/24 07:32 BMI result Body Mass Index 33.5 Const General: cooperative, comfortable and no acute distress Nutritional Appearance: obese Orientation/consciousness: patient oriented x3 Neck Neck: Yes trachea midline and Yes supple Resp Effort & Inspection: normal respiratory effort Auscultation: crackles (Coarse crackles at right base) and diminished lung sounds Cardio Rate: regular rate Rhythm: abnormal rhythm irregularly irregular Heart sounds: S1 normal heart sound present, S2 normal heart sound present, no click, no gallops, no murmurs and no rubs GI Auscultation: normal bowel sounds Skin General skin exam: no rashes or lesions noted Neuro General: patient oriented x3 and no focal motor deficits Extrem General: No clubbing, No cyanosis and Yes edema Objective Labs and Meds 11/24/24 06:56 11/24/24 06:56 Lab results: Laboratory Results - last 24 hr 11/23/24 11/23/24 11/23/24 11:14 16:22 20:51 WBC RBC Hgb Hct MCV MCH MCHC RDW Plt Count MPV Immature Gran % (Auto) Neut % (Auto) Lymph % (Auto) [place] % (Auto) Eos % (Auto) Baso % (Auto) Lymph # (Auto) [place] # (Auto) Eos # (Auto) Baso # (Auto) Abs Immat Gran (auto) Absolute Neuts (auto) Absolute Nucleated RBC Nucleated RBC % (auto) Neutrophils % (Manual) Band Neutrophils % Lymphocytes % (Manual) Monocytes % (Manual) Eosinophils % (Manual) Metamyelocytes % Myelocytes % Abs Neuts (Manual) Lymphocytes # (Manual) Monocytes # (Manual) Eosinophils # (Manual) Metamyelocytes # Myelocytes # Platelet Estimate Plt Morphology Comment RBC Morphology Shanna Cells Sodium Potassium Chloride Carbon Dioxide Anion Gap BUN Creatinine Estim Creat Clear Calc Estimated GFR POC Glucose 276 H 236 H 287 H Fasting Glucose Calcium Total Bilirubin AST ALT Alkaline Phosphatase B-Natriuretic Peptide Total Protein Albumin 11/24/24 11/24/24 06:56 07:15 WBC 17.6 H RBC 4.69 Hgb 13.5 Hct 41.5 MCV 88.5 MCH 28.8 MCHC 32.5 RDW 12.8 Plt Count 369 MPV 11.2 Immature Gran % (Auto) Cancelled Neut % (Auto) Cancelled Lymph % (Auto) Cancelled [place] % (Auto) Cancelled Eos % (Auto) Cancelled Baso % (Auto) Cancelled Lymph # (Auto) Cancelled [place] # (Auto) Cancelled Eos # (Auto) Cancelled Baso # (Auto) Cancelled Abs Immat Gran (auto) Cancelled Absolute Neuts (auto) Cancelled Absolute Nucleated RBC 0.000 Nucleated RBC % (auto) 0.0 Neutrophils % (Manual) 78 H Band Neutrophils % 1 L Lymphocytes % (Manual) 12 L Monocytes % (Manual) 5 Eosinophils % (Manual) 1 Metamyelocytes % 1 Myelocytes % 2 Abs Neuts (Manual) 13.9 H Lymphocytes # (Manual) 2.1 Monocytes # (Manual) 0.9 Eosinophils # (Manual) 0.2 Metamyelocytes # 0.2 Myelocytes # 0.4 Platelet Estimate SLIGHTLY INCREASED Plt Morphology Comment NORMAL RBC Morphology NOTED Shanna Cells 2+ (3-5) Sodium 143 Potassium 2.9 L* Chloride 100 Carbon Dioxide 31 H Anion Gap 15 BUN 66 H Creatinine 1.50 H Estim Creat Clear Calc 45.1 Estimated GFR 36 POC Glucose 160 H Fasting Glucose 166 H Calcium 8.6 Total Bilirubin 0.2 AST 17 ALT 22 Alkaline Phosphatase 130 H B-Natriuretic Peptide 291 H Total Protein 6.3 L Albumin 2.8 L Progress Note: A&P Assessment and plan (1) CHF exacerbation: Status: Acute Assessment and Plan: Congestive heart failure improving with improving creatinine. Says a good sign. Once creatinine improves further would add valsartan to her regimen. Will require ischemic workup as an outpatient given her prior history of CAD with LAD stenting. Continue carvedilol therapy for neurohormonal modulation. Continue Lasix drip for 1 more day. Strict intake and output chart needs to be pursued. Continue monitor BNP and BNP. Fluid started this is difficult to assess in her given her body habitus and underlying pulmonary issues. Continue COPD management. Out of bed to chair. Consider physical therapy consultation. Incentive spirometry. (2) Atrial fibrillation with rapid ventricular response: Status: Acute Assessment and Plan: Atrial fibrillation with better rate control. Add digoxin 0.125 mg daily to her regimen. Continue carvedilol for rate control. Continue full oral anticoagulation with Eliquis. Will follow with you Time Spent With Patient Time: Total time managing care of this patient today ____ minutes. Progress Note: Quality Stroke Does the patient have a stroke diagnosis?: No Procedures Date of Service Date of Service: 11/24/24
--- NOTE | 2024-11-24 10:41 | MHC.CM.PN ---
Per ROUNDS discussion, Patient is not yet medically cleared for dc (IV Lasix); Patient may benefit from a PT Eval to assist with disposition and CM will follow.
[2024-11-24] MEDS: Furosemide 200 MG in 0.9 % Sodium Chloride 80 ML IVCONT (10:53)
[2024-11-24 10:56] LABS: Glucose, Whole Blood 362 mg/dL (60-115)
--- NOTE | 2024-11-24 14:24 | P.PNIM_ITS ---
Subjective Subjective Date of Service: 11/24/24 Interval History: Continues to improve with Lasix drip. Rate controlled improve. No acute issues overnight Review of Systems Denies chest pain Admits shortness of breath which is markedly improved since admit Denies nausea vomiting diarrhea Denies fever chills Physical Exam 2 Vital Signs: Vital Signs: Last Vital Signs Temp 97.6 F 11/24/24 11:52 Pulse 84 11/24/24 11:52 Resp 20 11/24/24 11:52 BP 134/70 11/24/24 11:52 Pulse Ox 93 11/24/24 11:52 O2 Del Method Room Air 11/24/24 11:52 O2 Flow Rate 1 11/24/24 07:32 BMI result Body Mass Index 33.5 Const: Other: Awake alert no acute distress Resp: Other: Bilateral basilar crackles to inferior scapular border Cardio: Other: No S4; positive S1-S2; no S3 murmurs rubs or gallops. Irregularly irregular GI: Other: Soft nontender nondistended normoactive bowel sounds Extrem: Other: edema bilaterally Objective Data Active Medications Acetaminophen (Acetaminophen 325 Mg Tablet) 650 mg PO Q6H PRN PRN Reason: Pain, Mild 1-3,fever,headache Last Admin: 11/23/24 06:03 Dose: 650 mg Documented By: CHAU Apixaban (Apixaban 5 Mg Tablet) 5 mg PO BID [facility] Last Admin: 11/24/24 08:41 Dose: 5 mg Documented By: ADI Atorvastatin Calcium (Atorvastatin Calcium 80 Mg Tablet) 80 mg PO DAILY [facility] Last Admin: 11/24/24 08:41 Dose: 80 mg Documented By: ADI Calcium Carbonate (Calcium Carbonate 750 Mg Tab.Chew) 750 mg PO Q4H PRN PRN Reason: Heartburn Carvedilol (Carvedilol 25 Mg Tablet) 25 mg PO BID [facility]; Protocol Last Admin: 11/24/24 08:41 Dose: 25 mg Documented By: ADI Ergocalciferol (Ergocalciferol (Vitamin D2) 1,250 Mcg Capsule) 1,250 mcg PO SA [facility] Last Admin: 11/18/24 11:03 Dose: Not Given Documented By: FELIPAC Non-Admin Reason: Med Not Available Gabapentin (Gabapentin 100 Mg Capsule) 200 mg PO TID [facility] Last Admin: 11/24/24 08:41 Dose: 200 mg Documented By: ADI Glucose (Glucose Gel 15 Gm Gel..Gram.) 15 gm PO Q15M PRN; Protocol PRN Reason: per Hypoglycemia Standing Ord. Guaifenesin/Codeine Phosphate (Guaifen/Codeine Sf 200/20/10ml 10 Ml Liquid) 10 ml PO Q4H PRN PRN Reason: Cough Last Admin: 11/21/24 09:15 Dose: 10 ml Documented By: LUTHER Hydroxyzine HCl (Hydroxyzine Hcl 25 Mg Tablet) 25 mg PO BID [facility] Last Admin: 11/24/24 08:41 Dose: 25 mg Documented By: ADI Dextrose (D10) 250 mls @ 750 mls/hr IV Q15M PRN; Protocol PRN Reason: per Hypoglycemia Standing Ord. Furosemide 200 mg/ Sodium (Chloride) 100 mls @ 2.5 mls/hr IVCONT .Q24H [facility] Last Admin: 11/24/24 10:53 Dose: 5 mg/hr, 2.5 mls/hr Documented By: ADI Insulin Glargine (Insulin Glargine,Hum.Rec.Anlog 100 Unit/Ml 10 Ml Vial) 25 unit SUBCUT BEDTIME [facility] Last Admin: 11/23/24 20:59 Dose: 25 unit Documented By: JOAQUÍN Insulin Human Lispro (Insulin Lispro 100 Unit/Ml 3 Ml Vial) 0 unit SUBCUT QIDACHS [facility]; Protocol Last Admin: 11/24/24 11:15 Dose: 14 unit Documented By: ADI Levalbuterol HCl (Levalbuterol Hcl 1.25 Mg/3 Ml Vial.Neb) 1.25 mg INHALE RQ4H WHILE AWAKE [facility] Last Admin: 11/24/24 12:45 Dose: Not Given Documented By: KEERTHI Non-Admin Reason: Patient Asleep Magnesium Hydroxide (Milk Of Magnesia 30 Ml Oral.Susp) 30 ml PO DAILY PRN PRN Reason: Constipation Melatonin (Melatonin 3 Mg Tablet) 6 mg PO BEDTIME PRN PRN Reason: Insomnia Methylprednisolone Sodium Succinate (Methylprednisolone Sod Succ 40 Mg/Ml Vial) 20 mg IVPUSH Q12H [facility] Last Admin: 11/24/24 06:25 Dose: 20 mg Documented By: JOAQUÍN Multivitamins/Vitamin C (Multivitamin Tablet) 1 tab PO DAILY [facility] Last Admin: 11/24/24 08:41 Dose: 1 tab Documented By: ADI Nicotine (Nicotine 14 Mg Patch.Td24) 14 mg TRANSDERMA DAILY [facility] Last Admin: 11/24/24 08:41 Dose: 14 mg Documented By: ADI Nystatin (Nystatin Powder 15 Gm Bottle) 1 appl TOPICAL BID [facility]; Protocol Last Admin: 11/24/24 08:46 Dose: 1 appl Documented By: ADI Omeprazole (Omeprazole 40 Mg Capsule.Dr) 40 mg PO DAILY@0630 [facility] Last Admin: 11/24/24 06:25 Dose: 40 mg Documented By: JOAQUÍN Ondansetron HCl (Ondansetron Hcl 4 Mg/2 Ml Vial) 4 mg IVPUSH Q8H PRN PRN Reason: Nausea and Vomiting Potassium Chloride (Potassium Chloride Packet 20 Meq Packet) 40 meq PO BID [facility] Stop: 11/25/24 21:01 Last Admin: 11/24/24 08:42 Dose: 40 meq Documented By: ADI Pyridoxine HCl (Pyridoxine Hcl (Vitamin B6) 50 Mg Tablet) 100 mg PO DAILY [facility] Last Admin: 11/24/24 08:41 Dose: 100 mg Documented By: ADI Sertraline HCl (Sertraline Hcl 100 Mg Tablet) 100 mg PO DAILY [facility] Last Admin: 11/24/24 08:41 Dose: 100 mg Documented By: ADI Sodium Chloride (0.9 % Sodium Chloride Flush 3 Ml Syringe) 3 ml IVFLUSH QSHIFT [facility] Last Admin: 11/24/24 08:42 Dose: Not Given Documented By: ADI Non-Admin Reason: No peripheral IV/ see 5mL order Sodium Chloride (0.9 % Sodium Chloride Flush 10 Ml Syringe) 5 ml IVFLUSH TID [facility] Last Admin: 11/24/24 08:47 Dose: 5 ml Documented By: ADI Labs 11/24/24 06:56 11/24/24 06:56 Labs: Laboratory Results - last 24 hr 11/23/24 11/23/24 11/24/24 16:22 20:51 06:56 MCV 88.5 MCH 28.8 MCHC 32.5 RDW 12.8 Plt Count 369 MPV 11.2 Immature Gran % (Auto) Cancelled Neut % (Auto) Cancelled Lymph % (Auto) Cancelled [place] % (Auto) Cancelled Eos % (Auto) Cancelled Baso % (Auto) Cancelled Lymph # (Auto) Cancelled [place] # (Auto) Cancelled Eos # (Auto) Cancelled Baso # (Auto) Cancelled Abs Immat Gran (auto) Cancelled Absolute Neuts (auto) Cancelled Absolute Nucleated RBC 0.000 Nucleated RBC % (auto) 0.0 Neutrophils % (Manual) 78 H Band Neutrophils % 1 L Lymphocytes % (Manual) 12 L Monocytes % (Manual) 5 Eosinophils % (Manual) 1 Metamyelocytes % 1 Myelocytes % 2 Abs Neuts (Manual) 13.9 H Lymphocytes # (Manual) 2.1 Monocytes # (Manual) 0.9 Eosinophils # (Manual) 0.2 Metamyelocytes # 0.2 Myelocytes # 0.4 Platelet Estimate SLIGHTLY INCREASED Plt Morphology Comment NORMAL RBC Morphology NOTED [place] Cells 2+ (3-5) Anion Gap 15 Estim Creat Clear Calc 45.1 Estimated GFR 36 POC Glucose 236 H 287 H Fasting Glucose 166 H Calcium 8.6 Total Bilirubin 0.2 AST 17 ALT 22 Alkaline Phosphatase 130 H B-Natriuretic Peptide 291 H Total Protein 6.3 L Albumin 2.8 L 11/24/24 11/24/24 07:15 10:53 MCV MCH MCHC RDW Plt Count MPV Immature Gran % (Auto) Neut % (Auto) Lymph % (Auto) [place] % (Auto) Eos % (Auto) Baso % (Auto) Lymph # (Auto) [place] # (Auto) Eos # (Auto) Baso # (Auto) Abs Immat Gran (auto) Absolute Neuts (auto) Absolute Nucleated RBC Nucleated RBC % (auto) Neutrophils % (Manual) Band Neutrophils % Lymphocytes % (Manual) Monocytes % (Manual) Eosinophils % (Manual) Metamyelocytes % Myelocytes % Abs Neuts (Manual) Lymphocytes # (Manual) Monocytes # (Manual) Eosinophils # (Manual) Metamyelocytes # Myelocytes # Platelet Estimate Plt Morphology Comment RBC Morphology [place] Cells Anion Gap Estim Creat Clear Calc Estimated GFR POC Glucose 160 H 362 H* Fasting Glucose Calcium Total Bilirubin AST ALT Alkaline Phosphatase B-Natriuretic Peptide Total Protein Albumin Assessment and Plan (1) Atrial fibrillation with rapid ventricular response: Status: Acute (2) CHF exacerbation: Status: Acute Plan 54-year-old female with a PMH significant for?CAD, anterior wall [place] in 2015, mild cardiomyopathy, HTN, insulin-dependent type 2 diabetes, HLD, 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 Pt will be admitted to the hospital for multiple significant issues, including acute hypoxic respiratory failure, new onset AFib with RVR, acute CHF exacerbation, acute COPD exacerbation, hyperglycemia, and MELODIE, all in the setting of acute influenza infection. 1.New onset AFib with RVR -rate control improved. Add did 0.125 mg daily -continue carvedilol 25 mg b.i.d. -ontinue Eliquis 5 mg/dc asa -Echocardiogram showed EF 35-40%, evidence of wall motion abnormality, indeterminate diastolic function, left atrium severely dilated 2.Acute CHF with reduced EF exacerbation -continue IV Lasix drip as ordered x 24 additional hours -strict I&Os -follow renals/divalents 3.Acute hypoxic respiratory failure in the setting of COPD exacerbation from influenza infection -continue Solu-Medrol/ Xopenex/guaifenesin -titrate O2 to maintain sats greater than equal to 92% 4.MELODIE -remains elevated -continue Lasix drip as above -follow renals/divalents Viral sepsis/influenza A 5.Diabetes mellitus type 2 -improved control on current therapy -lispro correctional scale -adjust as indicated 6. Hypertension -acceptable control on current therapies -adjust as indicated Full Code Eliquis Pt will require continued inpatient hospitalization for acute hypoxic respiratory failure, new onset AFib with RVR, acute CHF exacerbation, acute COPD exacerbation, hyperglycemia, and MELODIE, all in the setting of acute influenza infection Requiring close tele monitoring expert consultation and close electrolyte monitoring. Quality Stroke Does the patient have a stroke diagnosis?: No VTE Prior VTE?: No VTE Risk Level:: Medical - moderate - high VTE Device Contraindication: Treatment Not Indicated VTE Drug Contraindication: N/A - Med Ordered
[2024-11-24] MEDS: Digoxin 0.125 MG TABLET PO (15:23)
[2024-11-24 16:06] LABS: Glucose, Whole Blood 274 mg/dL (60-115)
[2024-11-24] MEDS: 0.9 % Sodium Chloride Flush 3 ML SYRINGE IVFLUSH (17:39)
[2024-11-24 20:37] LABS: Glucose, Whole Blood 315 mg/dL (60-115)
[2024-11-24] MEDS: Insulin Glargine,Hum.rec.anlog 100 UNIT/ML 10 ML VIAL 25 UNIT SUBCUT (20:52)
[2024-11-25] VITALS (8 sets, daily range): BP systolic 115–148; BP diastolic 63–91; PULSE 72–105; RESP 18; TEMP 36.4–37.2; O2SAT 92–93; BMI 33.6
[2024-11-25] MEDS: methylPREDNISolone Sod Succ 40 MG/ML VIAL 20 MG IVPUSH ×2 (05:06→16:09)
[2024-11-25] MEDS: Omeprazole 40 MG CAPSULE.DR PO (05:06)
[2024-11-25] MEDS: levalbuterol HCL 1.25 MG/3 ML VIAL.NEB INHALE (07:11)
[2024-11-25 07:29] LABS: Glucose, Whole Blood 161 mg/dL (60-115)
[2024-11-25] MEDS: carvediloL 25 MG TABLET PO ×2 (09:18→21:33)
[2024-11-25] MEDS: Pyridoxine HCl (Vitamin B6) 50 MG TABLET 100 MG PO (09:19)
[2024-11-25] MEDS: Digoxin 0.125 MG TABLET PO (09:19)
[2024-11-25] MEDS: hydrOXYzine HCL 25 MG TABLET PO ×2 (09:19→21:33)
[2024-11-25] MEDS: Multivitamin TABLET 1 TAB PO (09:19)
[2024-11-25] MEDS: Potassium Chloride Packet 20 MEQ PACKET 40 MEQ PO ×2 (09:19→21:33)
[2024-11-25] MEDS: Sertraline HCL 100 MG TABLET PO (09:19)
[2024-11-25] MEDS: Atorvastatin Calcium 80 MG TABLET PO (09:19)
[2024-11-25] MEDS: Gabapentin 100 MG CAPSULE 200 MG PO ×3 (09:19→21:34)
[2024-11-25] MEDS: Apixaban 5 MG TABLET PO ×2 (09:19→21:33)
[2024-11-25] MEDS: Nicotine 14 MG PATCH.TD24 TRANSDERMA (09:19)
[2024-11-25] MEDS: Insulin Lispro 100 UNIT/ML 3 ML VIAL SUBCUT ×4 (09:20→21:34)
[2024-11-25] MEDS: Nystatin Powder 15 GM BOTTLE 1 APPL TOPICAL ×2 (09:20→21:36)
[2024-11-25] MEDS: 0.9 % Sodium Chloride Flush 10 ML SYRINGE 5 ML IVFLUSH ×3 (09:26→21:36)
[2024-11-25 10:25] LABS: MANUAL DIFF FLAG NO
[2024-11-25 10:32] LABS: Basophils Absolute Auto 0.1 X10*3/uL (0.0-0.2); Basophils Percent Auto 0.2 % (0-2); Eosinophils Absolute Auto 0.1 X10*3/uL (0.0-0.4); Eosinophils Percent Auto 0.3 % (0-4); Hematocrit 42.3 % (37.0-47.0); Hemoglobin 13.9 g/dl (12.0-16.0); Imm Gran Abs Auto 1.07 X10*3/uL (0.00-0.03); Imm Gran Pct Auto 4.8 % (0.0-0.4); Lymphocytes Absolute Auto 1.8 X10*3/uL (1.2-4.9); Lymphocytes Percent Auto 8.3 % (20-40); Mean Corpuscular HGB Conc 32.9 g/dl (31.0-35.0); Mean Corpuscular Hemoglobin 28.9 pg (27.0-33.0); Mean Corpuscular Volume 87.9 fL (80.0-98.0); Mean Platelet Volume 11.3 fL (9.4-12.3); Monocytes Absolute Auto 0.6 X10*3/uL (0.1-1.2); Monocytes Percent Auto 2.7 % (2-11); Neutrophils Absolute Auto 18.6 x10*3/uL (2.0-8.3); Neutrophils Percent Auto 83.7 % (45-73); Platelet Count 408 X10*3/uL (160-400); Red Blood Count 4.81 X10*6/uL (4.20-5.50); Red Cell Distribution Width 12.8 % (11.0-16.0); White Blood Count 22.2 X10*3/uL (4.8-10.8)
[2024-11-25 10:56] LABS: Alanine Aminotransferase 46 U/L (0-31); Albumin Level 3.1 g/dL (3.5-5.0); Alkaline Phosphatase 161 U/L (39-117); Anion Gap 14 (12-20); Aspartate Amino Transferase 40 U/L (5-31); Bilirubin Total 0.3 mg/dL (0.0-1.0); Blood Urea Nitrogen 69 mg/dL (9-16); Calcium 8.8 mg/dL (8.4-10.2); Carbon Dioxide 36 mmol/L (22-29); Chloride 95 mmol/L (96-108); Creatinine Clr Calc Pharmacy 38.5; Estimated Glomerular Filt Rate 30; Glucose Fasting 341 mg/dL (60-99); Potassium 4.3 mmol/L (3.3-5.1); Sodium 141 mmol/L (135-145); Total Protein 6.8 g/dL (6.5-8.0)
[2024-11-25 11:05] LABS: B Type Natriuretic Peptide 213 pg/mL (<100)
[2024-11-25 11:28] LABS: Glucose, Whole Blood 402 mg/dL (60-115)
[2024-11-25] MEDS: Furosemide 200 MG in 0.9 % Sodium Chloride 80 ML IVCONT (11:46)
[2024-11-25] MEDS: Ergocalciferol (Vitamin D2) 1,250 MCG CAPSULE 1250 MCG PO (11:46)
--- NOTE | 2024-11-25 12:08 | PM.PNCARD ---
Subjective Subjective Date of Service: 11/25/24 Principal diagnosis: Atrial fibrillation, flu, MELODIE,CHF Interval history: Patient feeling a lot better. Says she wants to go home. Diuresed. Breathing better. Creatinine is stable. No chest pain. Review of Systems Review of Systems Yes all other systems are reviewed and are negative Physical Exam Vital Signs: Last Vital Signs Temp 98.9 F 11/25/24 11:19 Pulse 75 11/25/24 11:19 Resp 18 11/25/24 11:19 BP 148/91 H 11/25/24 11:19 Pulse Ox 92 11/25/24 11:19 O2 Del Method Room Air 11/25/24 11:19 O2 Flow Rate 1 11/24/24 07:32 BMI result Body Mass Index 33.6 Const General: cooperative, comfortable and no acute distress Nutritional Appearance: obese Orientation/consciousness: patient oriented x3 Neck Neck: Yes trachea midline, Yes supple and Yes no JVD Resp Effort & Inspection: normal respiratory effort Auscultation: diminished lung sounds Cardio Rate: regular rate Rhythm: abnormal rhythm irregularly irregular Heart sounds: S1 normal heart sound present, S2 normal heart sound present, no click, no gallops, no murmurs and no rubs GI Auscultation: normal bowel sounds Skin General skin exam: no rashes or lesions noted Neuro General: patient oriented x3 and no focal motor deficits Extrem General: No clubbing, No cyanosis and Yes edema Objective Labs and Meds 11/25/24 09:38 11/25/24 09:38 Lab results: Laboratory Results - last 24 hr 11/24/24 11/24/24 11/25/24 16:02 20:29 07:24 WBC RBC Hgb Hct MCV MCH MCHC RDW Plt Count MPV Immature Gran % (Auto) Neut % (Auto) Lymph % (Auto) [place] % (Auto) Eos % (Auto) Baso % (Auto) Lymph # (Auto) [place] # (Auto) Eos # (Auto) Baso # (Auto) Abs Immat Gran (auto) Absolute Neuts (auto) Absolute Nucleated RBC Nucleated RBC % (auto) Sodium Potassium Chloride Carbon Dioxide Anion Gap BUN Creatinine Estim Creat Clear Calc Estimated GFR POC Glucose 274 H 315 H 161 H Fasting Glucose Calcium Total Bilirubin AST ALT Alkaline Phosphatase B-Natriuretic Peptide Total Protein Albumin 11/25/24 11/25/24 09:38 11:22 WBC 22.2 H RBC 4.81 Hgb 13.9 Hct 42.3 MCV 87.9 MCH 28.9 MCHC 32.9 RDW 12.8 Plt Count 408 H MPV 11.3 Immature Gran % (Auto) 4.8 H Neut % (Auto) 83.7 H Lymph % (Auto) 8.3 L [place] % (Auto) 2.7 Eos % (Auto) 0.3 Baso % (Auto) 0.2 Lymph # (Auto) 1.8 [place] # (Auto) 0.6 Eos # (Auto) 0.1 Baso # (Auto) 0.1 Abs Immat Gran (auto) 1.07 H Absolute Neuts (auto) 18.6 H Absolute Nucleated RBC 0.000 Nucleated RBC % (auto) 0.0 Sodium 141 Potassium 4.3 D Chloride 95 L Carbon Dioxide 36 H Anion Gap 14 BUN 69 H Creatinine 1.76 H Estim Creat Clear Calc 38.5 Estimated GFR 30 POC Glucose 402 H* Fasting Glucose 341 H Calcium 8.8 Total Bilirubin 0.3 AST 40 H ALT 46 H Alkaline Phosphatase 161 H B-Natriuretic Peptide 213 H Total Protein 6.8 Albumin 3.1 L Progress Note: A&P Assessment and plan (1) CHF exacerbation: Status: Acute Assessment and Plan: Congestive heart failure which has improved with LV systolic dysfunction question ischemic question AFib related. Improved significantly from heart failure perspective. Can switch to p.o. diuretics, Bumex 2 mg daily. Strict intake and output chart needs to be pursued. Follow-up creatinine tomorrow. Continue carvedilol for neurohormonal modulation. Add Entresto to her regimen and follow renal function tomorrow to see if she tolerates. Out of bed to chair and ambulate today. Continue COPD management. Continue rate control (2) Atrial fibrillation with rapid ventricular response: Status: Acute Assessment and Plan: Atrial fibrillation with better rate control. Continue carvedilol. Continue digoxin 0.125 mg daily. Follow-up digoxin assay in 1 week. Continue Eliquis anticoagulation. Once adequately anticoagulated for 3-4 weeks consider rhythm control approach. Will set up for follow-up as outpatient with ischemic workup as well. Will sign of the case. Please consulted if there any issues. Time Spent With Patient Time: Total time managing care of this patient today ____ minutes. Progress Note: Quality Stroke Does the patient have a stroke diagnosis?: No Procedures Date of Service Date of Service: 11/25/24
--- NOTE | 2024-11-25 13:01 | HO.PM.IMPN ---
Subjective Subjective Date of Service: 11/25/24 Interval History: Continues to improve. No further O2 requirement Review of Systems Denies chest pain Admits shortness of breath which is markedly improved since admit Denies nausea vomiting diarrhea Denies fever chills Physical Exam Vital Signs: Vital Signs: Last Vital Signs Temp 98.9 F 11/25/24 11:19 Pulse 75 11/25/24 11:19 Resp 18 11/25/24 11:19 BP 148/91 H 11/25/24 11:19 Pulse Ox 92 11/25/24 11:19 O2 Del Method Room Air 11/25/24 11:19 O2 Flow Rate 1 11/24/24 07:32 BMI result Body Mass Index 33.6 Const: Other: Awake alert no acute distress Resp: Other: Bilateral basilar crackles to inferior scapular border Cardio: Other: No S4; positive S1-S2; no S3 murmurs rubs or gallops. Irregularly irregular GI: Other: Soft nontender nondistended normoactive bowel sounds Extrem: Other: edema bilaterally Objective Data Active Medications Acetaminophen (Acetaminophen 325 Mg Tablet) 650 mg PO Q6H PRN PRN Reason: Pain, Mild 1-3,fever,headache Last Admin: 11/23/24 06:03 Dose: 650 mg Documented By: CHAU Apixaban (Apixaban 5 Mg Tablet) 5 mg PO BID [facility] Last Admin: 11/25/24 09:19 Dose: 5 mg Documented By: ADI Atorvastatin Calcium (Atorvastatin Calcium 80 Mg Tablet) 80 mg PO DAILY [facility] Last Admin: 11/25/24 09:19 Dose: 80 mg Documented By: ADI Bumetanide (Bumetanide 1 Mg Tablet) 2 mg PO DAILY [facility]; Protocol Calcium Carbonate (Calcium Carbonate 750 Mg Tab.Chew) 750 mg PO Q4H PRN PRN Reason: Heartburn Carvedilol (Carvedilol 25 Mg Tablet) 25 mg PO BID [facility]; Protocol Last Admin: 11/25/24 09:18 Dose: 25 mg Documented By: ADI Digoxin (Digoxin 0.125 Mg Tablet) 0.125 mg PO DAILY [facility]; Protocol Last Admin: 11/25/24 09:19 Dose: 0.125 mg Documented By: ADI Ergocalciferol (Ergocalciferol (Vitamin D2) 1,250 Mcg Capsule) 1,250 mcg PO SA [facility] Last Admin: 11/25/24 11:46 Dose: 1,250 mcg Documented By: ADI Gabapentin (Gabapentin 100 Mg Capsule) 200 mg PO TID [facility] Last Admin: 11/25/24 09:19 Dose: 200 mg Documented By: ADI Glucose (Glucose Gel 15 Gm Gel..Gram.) 15 gm PO Q15M PRN; Protocol PRN Reason: per Hypoglycemia Standing Ord. Guaifenesin/Codeine Phosphate (Guaifen/Codeine Sf 200/20/10ml 10 Ml Liquid) 10 ml PO Q4H PRN PRN Reason: Cough Last Admin: 11/21/24 09:15 Dose: 10 ml Documented By: LUTHER Hydroxyzine HCl (Hydroxyzine Hcl 25 Mg Tablet) 25 mg PO BID [facility] Last Admin: 11/25/24 09:19 Dose: 25 mg Documented By: ADI Dextrose (D10) 250 mls @ 750 mls/hr IV Q15M PRN; Protocol PRN Reason: per Hypoglycemia Standing Ord. Insulin Glargine (Insulin Glargine,Hum.Rec.Anlog 100 Unit/Ml 10 Ml Vial) 25 unit SUBCUT BEDTIME [facility] Last Admin: 11/24/24 20:52 Dose: 25 unit Documented By: JOAQUÍN Insulin Human Lispro (Insulin Lispro 100 Unit/Ml 3 Ml Vial) 0 unit SUBCUT QIDACHS [facility]; Protocol Last Admin: 11/25/24 11:46 Dose: 14 unit Documented By: ADI Levalbuterol HCl (Levalbuterol Hcl 1.25 Mg/3 Ml Vial.Neb) 1.25 mg INHALE RQ4H WHILE AWAKE [facility] Last Admin: 11/25/24 11:02 Dose: Not Given Documented By: DOC Non-Admin Reason: Patient Refused Magnesium Hydroxide (Milk Of Magnesia 30 Ml Oral.Susp) 30 ml PO DAILY PRN PRN Reason: Constipation Melatonin (Melatonin 3 Mg Tablet) 6 mg PO BEDTIME PRN PRN Reason: Insomnia Methylprednisolone Sodium Succinate (Methylprednisolone Sod Succ 40 Mg/Ml Vial) 20 mg IVPUSH Q12H [facility] Last Admin: 11/25/24 05:06 Dose: 20 mg Documented By: JOAQUÍN Multivitamins/Vitamin C (Multivitamin Tablet) 1 tab PO DAILY [facility] Last Admin: 11/25/24 09:19 Dose: 1 tab Documented By: ADI Nicotine (Nicotine 14 Mg Patch.Td24) 14 mg TRANSDERMA DAILY [facility] Last Admin: 11/25/24 09:19 Dose: 14 mg Documented By: ADI Nystatin (Nystatin Powder 15 Gm Bottle) 1 appl TOPICAL BID [facility]; Protocol Last Admin: 11/25/24 09:20 Dose: 1 appl Documented By: ADI Omeprazole (Omeprazole 40 Mg Capsule.Dr) 40 mg PO DAILY@0630 [facility] Last Admin: 11/25/24 05:06 Dose: 40 mg Documented By: JOAQUÍN Ondansetron HCl (Ondansetron Hcl 4 Mg/2 Ml Vial) 4 mg IVPUSH Q8H PRN PRN Reason: Nausea and Vomiting Potassium Chloride (Potassium Chloride Packet 20 Meq Packet) 40 meq PO BID [facility] Stop: 11/25/24 21:01 Last Admin: 11/25/24 09:19 Dose: 40 meq Documented By: ADI Pyridoxine HCl (Pyridoxine Hcl (Vitamin B6) 50 Mg Tablet) 100 mg PO DAILY [facility] Last Admin: 11/25/24 09:19 Dose: 100 mg Documented By: ADI Sertraline HCl (Sertraline Hcl 100 Mg Tablet) 100 mg PO DAILY [facility] Last Admin: 11/25/24 09:19 Dose: 100 mg Documented By: ADI Sodium Chloride (0.9 % Sodium Chloride Flush 3 Ml Syringe) 3 ml IVFLUSH QSHIFT [facility] Last Admin: 11/25/24 09:27 Dose: Not Given Documented By: ADI Non-Admin Reason: Midline/see 5mL order Sodium Chloride (0.9 % Sodium Chloride Flush 10 Ml Syringe) 5 ml IVFLUSH TID [facility] Last Admin: 11/25/24 09:26 Dose: 5 ml Documented By: ADI Labs 11/25/24 09:38 11/25/24 09:38 Labs: Laboratory Results - last 24 hr 11/24/24 11/24/24 11/25/24 16:02 20:29 07:24 MCV MCH MCHC RDW Plt Count MPV Immature Gran % (Auto) Neut % (Auto) Lymph % (Auto) [place] % (Auto) Eos % (Auto) Baso % (Auto) Lymph # (Auto) [place] # (Auto) Eos # (Auto) Baso # (Auto) Abs Immat Gran (auto) Absolute Neuts (auto) Absolute Nucleated RBC Nucleated RBC % (auto) Anion Gap Estim Creat Clear Calc Estimated GFR POC Glucose 274 H 315 H 161 H Fasting Glucose Calcium Total Bilirubin AST ALT Alkaline Phosphatase B-Natriuretic Peptide Total Protein Albumin 11/25/24 11/25/24 09:38 11:22 MCV 87.9 MCH 28.9 MCHC 32.9 RDW 12.8 Plt Count 408 H MPV 11.3 Immature Gran % (Auto) 4.8 H Neut % (Auto) 83.7 H Lymph % (Auto) 8.3 L [place] % (Auto) 2.7 Eos % (Auto) 0.3 Baso % (Auto) 0.2 Lymph # (Auto) 1.8 [place] # (Auto) 0.6 Eos # (Auto) 0.1 Baso # (Auto) 0.1 Abs Immat Gran (auto) 1.07 H Absolute Neuts (auto) 18.6 H Absolute Nucleated RBC 0.000 Nucleated RBC % (auto) 0.0 Anion Gap 14 Estim Creat Clear Calc 38.5 Estimated GFR 30 POC Glucose 402 H* Fasting Glucose 341 H Calcium 8.8 Total Bilirubin 0.3 AST 40 H ALT 46 H Alkaline Phosphatase 161 H B-Natriuretic Peptide 213 H Total Protein 6.8 Albumin 3.1 L Assessment and Plan (1) Atrial fibrillation with rapid ventricular response: Status: Acute (2) CHF exacerbation: Status: Acute Plan 54-year-old female with a PMH significant for?CAD, anterior wall [place] in 2014, mild cardiomyopathy, HTN, insulin-dependent type 2 diabetes, HLD, 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 Pt will be admitted to the hospital for multiple significant issues, including acute hypoxic respiratory failure, new onset AFib with RVR, acute CHF exacerbation, acute COPD exacerbation, hyperglycemia, and MELODIE, all in the setting of acute influenza infection. 1.New onset AFib with RVR -carvedilol 25 mg b.i.d./Dig 0.125 qd -add low-dose Entresto start tonight -continue Eliquis 5 mg/dc asa -Echocardiogram showed EF 35-40%, evidence of wall motion abnormality, indeterminate diastolic function, left atrium severely dilated 2.Acute CHF with reduced EF exacerbation -DC Lasix drip ; Bumex 2 mg daily -strict I&Os -follow renals/divalents 3.Acute hypoxic respiratory failure in the setting of COPD exacerbation from influenza infection -continue Solu-Medrol/ Xopenex/guaifenesin... Prednisone p.o. taper upon discharge -titrate O2 to maintain sats greater than equal to 92% 4.MELODIE -as above; DC Lasix drip and start Bumex -follow renals/divalents 5.Diabetes mellitus type 2 -improved control on current therapy -lispro correctional scale -adjust as indicated 6. Hypertension -acceptable control on current therapies -adjust as indicated Full Code [place] Pt will require continued inpatient hospitalization for acute hypoxic respiratory failure, new onset AFib with RVR, acute CHF exacerbation, acute COPD exacerbation, hyperglycemia, and MELODIE, all in the setting of acute influenza infection Requiring close tele monitoring expert consultation and close electrolyte monitoring. Quality Stroke Does the patient have a stroke diagnosis?: No VTE Prior VTE?: No VTE Risk Level:: Medical - moderate - high VTE Device Contraindication: Treatment Not Indicated VTE Drug Contraindication: N/A - Med Ordered
[2024-11-25] MEDS: Bumetanide 1 MG TABLET 2 MG PO (14:23)
[2024-11-25 15:28] LABS: Glucose, Whole Blood 292 mg/dL (60-115)
[2024-11-25] MEDS: 0.9 % Sodium Chloride Flush 3 ML SYRINGE IVFLUSH ×2 (15:29→21:36)
[2024-11-25 21:07] LABS: Glucose, Whole Blood 275 mg/dL (60-115)
[2024-11-25] MEDS: Sacubitril/Valsartan 24/26 1 TAB TABLET PO (21:33)
[2024-11-25] MEDS: Insulin Glargine,Hum.rec.anlog 100 UNIT/ML 10 ML VIAL 25 UNIT SUBCUT (21:34)
[2024-11-26 03:39] VITALS: BP 108/63; PULSE 80; RESP 18; TEMP 36.4; O2SAT 95
[2024-11-26 05:35] VITALS: BMI 33.6
[2024-11-26] MEDS: Omeprazole 40 MG CAPSULE.DR PO (05:36)
[2024-11-26] MEDS: methylPREDNISolone Sod Succ 40 MG/ML VIAL 20 MG IVPUSH (05:36)
[2024-11-26 07:00] VITALS: BP 121/66; PULSE 72; RESP 18; TEMP 36.6; O2SAT 96
[2024-11-26 07:28] LABS: Glucose, Whole Blood 150 mg/dL (60-115)
[2024-11-26 07:28] LABS: MANUAL DIFF FLAG NO
[2024-11-26 07:32] LABS: Basophils Percent Auto 0.2 % (0-2); Eosinophils Absolute Auto 0.1 X10*3/uL (0.0-0.4); Eosinophils Percent Auto 0.5 % (0-4); Hematocrit 42.5 % (37.0-47.0); Hemoglobin 13.8 g/dl (12.0-16.0); Imm Gran Abs Auto 0.52 X10*3/uL (0.00-0.03); Imm Gran Pct Auto 3.2 % (0.0-0.4); Lymphocytes Absolute Auto 2.7 X10*3/uL (1.2-4.9); Lymphocytes Percent Auto 16.2 % (20-40); Mean Corpuscular HGB Conc 32.5 g/dl (31.0-35.0); Mean Corpuscular Hemoglobin 28.6 pg (27.0-33.0); Mean Corpuscular Volume 88.2 fL (80.0-98.0); Mean Platelet Volume 11.2 fL (9.4-12.3); Monocytes Absolute Auto 0.6 X10*3/uL (0.1-1.2); Monocytes Percent Auto 3.8 % (2-11); Neutrophils Absolute Auto 12.5 x10*3/uL (2.0-8.3); Neutrophils Percent Auto 76.1 % (45-73); Platelet Count 318 X10*3/uL (160-400); Red Blood Count 4.82 X10*6/uL (4.20-5.50); Red Cell Distribution Width 12.7 % (11.0-16.0); White Blood Count 16.4 X10*3/uL (4.8-10.8)
[2024-11-26] MEDS: levalbuterol HCL 1.25 MG/3 ML VIAL.NEB INHALE ×2 (07:53→12:16)
[2024-11-26 07:55] VITALS: PULSE 79; RESP 18; O2SAT 95
[2024-11-26 07:58] LABS: Alanine Aminotransferase 80 U/L (0-31); Albumin Level 2.9 g/dL (3.5-5.0); Alkaline Phosphatase 160 U/L (39-117); Anion Gap 14 (12-20); Aspartate Amino Transferase 85 U/L (5-31); Bilirubin Total 0.3 mg/dL (0.0-1.0); Blood Urea Nitrogen 65 mg/dL (9-16); Calcium 8.7 mg/dL (8.4-10.2); Carbon Dioxide 31 mmol/L (22-29); Chloride 102 mmol/L (96-108); Creatinine Clr Calc Pharmacy 49.8; Estimated Glomerular Filt Rate 40; Glucose Fasting 155 mg/dL (60-99); Potassium 4.2 mmol/L (3.3-5.1); Sodium 143 mmol/L (135-145); Total Protein 6.3 g/dL (6.5-8.0)
[2024-11-26] MEDS: Nicotine 14 MG PATCH.TD24 TRANSDERMA (08:57)
[2024-11-26] MEDS: Pyridoxine HCl (Vitamin B6) 50 MG TABLET 100 MG PO (08:58)
[2024-11-26] MEDS: Atorvastatin Calcium 80 MG TABLET PO (08:58)
[2024-11-26] MEDS: Bumetanide 1 MG TABLET 2 MG PO (08:58)
[2024-11-26] MEDS: Sertraline HCL 100 MG TABLET PO (08:58)
[2024-11-26] MEDS: Apixaban 5 MG TABLET PO (08:58)
[2024-11-26] MEDS: hydrOXYzine HCL 25 MG TABLET PO (08:58)
[2024-11-26] MEDS: Digoxin 0.125 MG TABLET PO (08:58)
[2024-11-26] MEDS: carvediloL 25 MG TABLET PO (08:58)
[2024-11-26] MEDS: Gabapentin 100 MG CAPSULE 200 MG PO (08:58)
[2024-11-26] MEDS: Multivitamin TABLET 1 TAB PO (08:58)
[2024-11-26] MEDS: Sacubitril/Valsartan 24/26 1 TAB TABLET PO (08:58)
[2024-11-26] MEDS: Nystatin Powder 15 GM BOTTLE 1 APPL TOPICAL (08:59)
[2024-11-26] MEDS: 0.9 % Sodium Chloride Flush 10 ML SYRINGE 5 ML IVFLUSH (09:00)
[2024-11-26 11:14] LABS: Glucose, Whole Blood 317 mg/dL (60-115)
[2024-11-26 11:48] VITALS: BP 136/70; PULSE 74; TEMP 36.7; O2SAT 94
[2024-11-26] MEDS: Insulin Lispro 100 UNIT/ML 3 ML VIAL SUBCUT (12:22)
[2024-11-26 12:24] VITALS: PULSE 98; RESP 18
--- NOTE | 2024-11-26 12:36 | PM.DS ---
DS: Providers Provider Date of Service: 11/26/24 Date of admission: 11/17/24 17:58 Date of discharge: 11/26/24 Primary care physician: Rancho Duarte MD Consults: 11/17/24 12:30 Consult to Cardiology Routine Consulting Provider: [facility] Reason for consultation: CHF, Afib Has provider been notified: No DS: Diagnosis Discharge Diagnosis (1) Atrial fibrillation with rapid ventricular response: Status: Acute (2) CHF exacerbation: Status: Acute DS: Summary Hospital Course Hospital Course: 54-year-old female with a PMH significant for?CAD, anterior wall PA in 2015, mild cardiomyopathy, HTN, insulin-dependent type 2 diabetes, HLD, 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 Some chills but no measured fever. Occasional palpitations, as well as diarrhea for the past few days. No nausea, vomiting, or abdominal pain. Pt has attempted to keep up with fluids, but has not been eating much. Has had increased lower leg edema for the past 1-2 weeks. Pt has been using her home inhalers to no effect. Is not on home O2. Currently still smoking around half a pack daily. Pt also reports she is supposed to be on insulin for her diabetes, but stopped both checking her sugars and using insulin on her own over a year ago. Pt denies a past hx of atrial fibrillation. Denies chest pain pressure. In the ED pt was tachycardic to 142, tachypneic up to 38, hypertensive as high as 158/97. Initially satting in the 80s and placed on CPAP by EMS, eventually transitioned to high-flow. Labs were significant for testing positive for flu, leukocytosis 14.7, sodium 133, potassium 2.7, creatinine 1.87 (baseline around 0.90), random glucose 685, alk-phos 131, initial troponin 43.5 with repeat 45.5, CRP 13.64, and BNP 641. UA negative for UTI. CXR showed likely pulmonary edema, as well as elevated right hemidiaphragm concerning for right phrenic paralysis. EKG demonstrated atrial fibrillation with RVR of 137. Pt was treated with Xopenex, potassium chloride IV and p.o., nitroglycerin, diltiazem 15 mg IV, metoprolol 5 mg IV x2 and 25 mg p.o., Tamiflu, and regular insulin 10 units. Pt will be admitted to the hospital for multiple significant issues, including acute hypoxic respiratory failure, AFib with RVR, acute CHF exacerbation, acute COPD exacerbation, hyperglycemia, and MELODIE, all in the setting of acute influenza infection. Hospital [facility] Admitted to telemetry where monitor demonstrated AFib with rapid ventricular response. She was given multiple doses of metoprolol with fair control of her heart rate. Carvedilol was restarted at home dosing. Rate control was ultimately achieved with digoxin and carvedilol. Given her overall cardiac situation, she was in acute systolic heart failure. She was started on a Lasix drip and slowly diuresed. She tolerated the drip well. Heart rate became control and Lasix drip was DC in favor of Bumex. At this time she is stable on 2 mg of Bumex daily and we will go home on carvedilol, digoxin, Entresto and Eliquis. She will follow up with Cardiology as scheduled Time Attestation Discharge Coordination Time (in mins): 35 Quality: Safe Use of Opioids Does Pt have an Active Cancer Diagnosis on the Problem List?: No Quality: Stroke Does the patient have a stroke diagnosis?: No Physical Exam Vital Signs: Vital Signs: Last Vital Signs Temp 98.1 F 11/26/24 11:48 Pulse 98 11/26/24 12:24 Resp 18 11/26/24 12:24 BP 136/70 11/26/24 11:48 Pulse Ox 94 11/26/24 11:48 O2 Del Method Room Air 11/26/24 11:48 O2 Flow Rate 1 11/24/24 07:32 BMI result Body Mass Index 33.6 Const: Other: Awake alert no acute distress Resp: Other: Bilateral basilar crackles to inferior scapular border Cardio: Other: No S4; positive S1-S2; no S3 murmurs rubs or gallops. Irregularly irregular GI: Other: Soft nontender nondistended normoactive bowel sounds Extrem: Other: edema bilaterally DS: Data Data Completed and Pending Completed studies during hospitalization [Text1]: Procedures Dilation of Right Ureter with Intraluminal Device, Via Natural or Artificial Opening Endoscopic (10/21/21) Drainage of Right Kidney, Percutaneous Approach (09/08/22) Drainage of Right Lobe Liver, Percutaneous Approach (09/08/22) Fluoroscopy of Right Kidney, Ureter and Bladder (10/21/21) Labs on day of discharge: Laboratory Results - last 24 hr 11/25/24 11/25/24 11/26/24 15:18 20:22 06:45 WBC 16.4 H RBC 4.82 Hgb 13.8 Hct 42.5 MCV 88.2 MCH 28.6 MCHC 32.5 RDW 12.7 Plt Count 318 MPV 11.2 Immature Gran % (Auto) 3.2 H Neut % (Auto) 76.1 H Lymph % (Auto) 16.2 L [place] % (Auto) 3.8 Eos % (Auto) 0.5 Baso % (Auto) 0.2 Lymph # (Auto) 2.7 [place] # (Auto) 0.6 Eos # (Auto) 0.1 Baso # (Auto) 0.0 Abs Immat Gran (auto) 0.52 H Absolute Neuts (auto) 12.5 H Absolute Nucleated RBC 0.000 Nucleated RBC % (auto) 0.0 Sodium 143 Potassium 4.2 Chloride 102 Carbon Dioxide 31 H Anion Gap 14 BUN 65 H Creatinine 1.36 Estim Creat Clear Calc 49.8 Estimated GFR 40 POC Glucose 292 H 275 H Fasting Glucose 155 H Calcium 8.7 Total Bilirubin 0.3 AST 85 H ALT 80 H Alkaline Phosphatase 160 H Total Protein 6.3 L Albumin 2.9 L 11/26/24 11/26/24 07:04 11:10 WBC RBC Hgb Hct MCV MCH MCHC RDW Plt Count MPV Immature Gran % (Auto) Neut % (Auto) Lymph % (Auto) [place] % (Auto) Eos % (Auto) Baso % (Auto) Lymph # (Auto) [place] # (Auto) Eos # (Auto) Baso # (Auto) Abs Immat Gran (auto) Absolute Neuts (auto) Absolute Nucleated RBC Nucleated RBC % (auto) Sodium Potassium Chloride Carbon Dioxide Anion Gap BUN Creatinine Estim Creat Clear Calc Estimated GFR POC Glucose 150 H 317 H Fasting Glucose Calcium Total Bilirubin AST ALT Alkaline Phosphatase Total Protein Albumin Discharge Plan Discharge Anticipated Discharge Date/Time: 11/26/24 12:20 Patient Disposition: Home, Self-Care Discharge Diagnosis: Acute systolic heart failure Referrals: Rancho Duarte MD [Primary Care Provider] - 1 Week Discharge Medications: New Eliquis 5 mg Tablet 5 mg PO BID Qty: 60 0RF carvedilol 25 mg Tablet 25 mg PO BID Qty: 60 1RF Protocol: Hold for SBP/HR < HOLD for SBP < : 90 HOLD for HR < : 60 digoxin 125 mcg (0.125 mg) Tablet 0.125 mg PO DAILY Qty: 30 1RF Protocol: Hold for HR <: HOLD for HR < : 60 sacubitril-valsartan [Entresto] 24-26 mg Tablet 1 tab PO BID Qty: 60 1RF Protocol: Hold for SBP< HOLD for SBP < : 90 bumetanide 1 mg Tablet 2 mg PO DAILY Qty: 30 1RF Protocol: Hold for SBP< HOLD for SBP < : 90 Continued sertraline 100 mg tablet 100 mg PO DAILY Qty: 30 3RF (DME) blood-glucose meter [FreeStyle Lite Meter] Kit See Rx Instructions .ROUTE .MEDSUPPLY Qty: 1 0RF Rx Instructions: As directed (DME) lancets [FreeStyle Lancets] 28 gauge misc See Rx Instructions .Route Qty: 100 1RF Rx Instructions: Test 3 times daily (DME) FreeStyle Lite Strips Strip See Rx Instructions .Route Qty: 100 0RF Rx Instructions: Use 1 test strip three times a day (DME) pen needle, diabetic [BD Ultra-Fine Gi Pen Needle] 32 gauge x 5/32 needle See Rx Instructions subcut DAILY Qty: 50 8RF Rx Instructions: As directed gabapentin 100 mg capsule 200 mg PO TID Qty: 180 3RF pyridoxine (vitamin B6) 100 mg tablet 100 mg PO DAILY 90 Days Qty: 90 1RF omeprazole 40 mg capsule,delayed release(DR/EC) 40 mg PO DAILY Qty: 90 3RF amlodipine 10 mg tablet 10 mg PO DAILY Qty: 30 7RF atorvastatin 80 mg tablet 80 mg PO DAILY Qty: 30 3RF albuterol sulfate 90 mcg/actuation HFA aerosol inhaler 1 puff PO QID PRN (Reason: for dyspnea) Qty: 6.7 3RF metformin 500 mg tablet 500 mg PO DAILY ergocalciferol (vitamin D2) [Vitamin D2] 1,250 mcg (50,000 unit) capsule 1,250 mcg PO SA aspirin 81 mg tablet,delayed release (DR/EC) 81 mg PO DAILY melatonin 3 mg tablet 3 mg PO BEDTIME Patient Comments: OTC per pt One Daily Multi-Vit w-Mineral 4.5 mg iron tablet 1 tab PO DAILY Patient Comments: OTC per pt hydroxyzine pamoate 25 mg capsule 25 mg PO BID Discontinued hydrochlorothiazide 25 mg tablet 25 mg PO DAILY Qty: 90 8RF Discharge Orders: Discharge Order (Routine); Ordered 11/26/24 Ordered By: Jose Ruiz Diet: Advance to usual diet Activity on Discharge: As tolerated Stand Alone Forms: Patient Portal Discharge page Print Language: Italian Care Plan Goals: Resume all your home meds as taken before the hospital Health Concerns: Bumex along with Entresto along with Eliquis along with Coreg, Bumex and digoxin has been added to your regimen. Continue these with your other meds Plan of Treatment: Follow up with Cardiology; Dr. Chapa office will call you with an appointment. Follow up with the PCP next available Assessment: See discharge summary
--- NOTE | 2024-11-26 13:04 | W.MHC.F2F ---
Service Date Service Date: 11/26/24 Encounter Date of encounter: 11/26/24 Reasons for Services Signs and symptoms assessed: Moderate cardiac and respiratory status Reason for senior living: diabetic teaching, medication management and teach disease management Homebound: Leaving the home is medically contraindicated at this time without the asist of a device and/or another person due th the listed conditions above and below. Reason homebound: unsteady gait / fall risk and unable to drive Certification: Based on the above findings, I certify that this patient is confined to the home and needs intermittent senior living care, physical therapy and/or speech therapy, or continues to need occupational therapy. The patient is under my care, and I have initiated the establishment of the plan of care. The patient will be followed by a physician who will periodically review the plan of care. Time Spent With Patient Time: Total time managing care of this patient today ____ minutes.
--- NOTE | 2024-11-26 13:18 | MHC.CM.PN ---
Second IMM given 11/26. Pt is medically cleared for discharge home with [facility], pts step mother will transport her home.
== END 2024-11-26 14:28 | disposition home or self-care (01) | DRG 871 ==
LOC: HO.ED 15:55 → HO.EDOVER 18:09 → HO.IMC 11-18 15:51
PROVIDERS: Hospitalist; Admitting Provider Student in an Organized Health Care Education/Training Program; Emergency Provider Emergency Medicine; PCP Internal Medicine; Visit Provider Hospitalist
DX: A41.89 Other specified sepsis (principal); I50.21 Acute systolic (congestive) heart failure; I50.23 Acute on chronic systolic (congestive) heart failure; J96.01 Acute respiratory failure with hypoxia; I42.9 Cardiomyopathy, unspecified; J44.1 Chronic obstructive pulmonary disease with (acute) exacerbation; I25.10 Atherosclerotic heart disease of native coronary artery without angina pectoris; F17.210 Nicotine dependence, cigarettes, uncomplicated; E66.812 Obesity, class 2; Z71.3 Dietary counseling and surveillance; I48.91 Unspecified atrial fibrillation; F39 Unspecified mood [affective] disorder; E11.65 Type 2 diabetes mellitus with hyperglycemia; E78.5 Hyperlipidemia, unspecified; I11.0 Hypertensive heart disease with heart failure; Z68.33 Body mass index [BMI] 33.0-33.9, adult; E87.6 Hypokalemia; Z71.6 Tobacco abuse counseling; Z79.84 Long term (current) use of oral hypoglycemic drugs; Z79.899 Other long term (current) drug therapy
CPT/HCPCS: 0241U; 36410; 36415; 71045; 80048; 80053; 80076; 81001; 82803; 82947; 83036; 83605; 83735; 83880; 84484; 85007; 85025; 85027; 85610; 86140; 87040; 93005; 93306; 94640; 99285; C1751; J1160; J1940; J2919; J3480; Q9957

== ENCOUNTER → 2024-11-17 07:52 | Outpatient (BNV) | payer MEDICARE, SELFPAY | PROVIDERS: Emergency Provider Emergency Medicine; PCP Internal Medicine; Visit Provider Radiology Diagnostic Radiology | DX: J81.0 Acute pulmonary edema (principal); J98.6 Disorders of diaphragm | CPT/HCPCS: 71045 ==

== ENCOUNTER → 2024-11-17 09:06 | Outpatient (BNV) | payer MEDICARE, SELFPAY | PROVIDERS: Emergency Provider Emergency Medicine; PCP Internal Medicine; Visit Provider Internal Medicine Cardiovascular Disease | DX: I50.9 Heart failure, unspecified (principal); I48.91 Unspecified atrial fibrillation | CPT/HCPCS: 93010; 99223; 99233 ==

== ENCOUNTER 2024-11-17 17:58 | Outpatient (BNV) | payer MEDICARE, SELFPAY | END 2024-11-20 07:00 | PROVIDERS: Admitting Provider Student in an Organized Health Care Education/Training Program; Emergency Provider Emergency Medicine; PCP Internal Medicine; Visit Provider Internal Medicine Cardiovascular Disease | DX: I35.2 Nonrheumatic aortic (valve) stenosis with insufficiency (principal); I34.0 Nonrheumatic mitral (valve) insufficiency; I36.1 Nonrheumatic tricuspid (valve) insufficiency | CPT/HCPCS: 93306 ==

== ENCOUNTER 2024-11-17 17:58 | Outpatient (BNV) | payer MEDICARE, SELFPAY | END 2024-11-19 11:12 | PROVIDERS: Admitting Provider Student in an Organized Health Care Education/Training Program; Emergency Provider Emergency Medicine; PCP Internal Medicine; Visit Provider Radiology Diagnostic Radiology | DX: I51.7 Cardiomegaly (principal); J98.6 Disorders of diaphragm | CPT/HCPCS: 71045 ==

== ENCOUNTER → 2024-11-17 17:58 | Outpatient (BNV) | payer MEDICARE, SELFPAY | PROVIDERS: Admitting Provider Student in an Organized Health Care Education/Training Program; Emergency Provider Emergency Medicine; PCP Internal Medicine; Visit Provider Student in an Organized Health Care Education/Training Program | DX: I48.91 Unspecified atrial fibrillation (principal); I50.9 Heart failure, unspecified | CPT/HCPCS: 99223; 99233; 99239; G0180 ==

== ENCOUNTER 2024-12-08 14:26 | Outpatient (AMB) ==
--- NOTE | 2024-12-08 14:36 | MHC.PC.OV ---
Vital Signs 12/08/24 14:39 Height 5 ft 4 in Weight 198 lb 2 oz BMI 34.0 BP 130/70 Blood Pressure Location Lt brachial Position Sitting Pulse 71 Pulse Source Pulse Oximeter Temp 96.4 F L Temp Source Skin Pulse Oximetry (%) 95 Oxygen Delivery Method Room Air Intake Visit Reasons: HDF/flu Intake Note: Patient is here for hospital discharge follow up. Patient was discharged from [facility] on 11/26/24. Director [employer] Required: No Gynecological Assistant: Not Required per policy Accompanied by: Self / Same As Patient Allergies No Known Allergies Allergy (Verified 12/08/24 14:38) Medication List - Last Reconciled 12/11/24 by Rancho Duarte MD albuterol sulfate 90 mcg/actuation 1 puff PO QID PRN amlodipine 10 mg PO DAILY apixaban (Eliquis) 5 mg PO BID aspirin 81 mg PO DAILY atorvastatin 80 mg PO DAILY blood sugar diagnostic (FreeStyle Lite Strips) Use 1 test strip three times a day blood-glucose meter (FreeStyle Lite Meter kit) As directed bumetanide 2 mg See Protocol PO DAILY carvedilol 25 mg See Protocol PO BID digoxin 0.125 mg See Protocol PO DAILY ergocalciferol (vitamin D2) (Vitamin D2) 1,250 mcg PO SA gabapentin 200 mg (2 x 100 mg) PO TID hydroxyzine pamoate 25 mg PO BID lancets (FreeStyle Lancets) Test 3 times daily melatonin 3 mg PO BEDTIME metformin 500 mg PO DAILY dkdbrtyc-wib-gdddxla sulfate 4.5 mg iron (One Daily Multivitamins with Minerals) 1 tab PO DAILY omeprazole 40 mg PO DAILY pen needle, diabetic (BD Ultra-Fine Gi Pen Needle) As directed pyridoxine (vitamin B6) 100 mg PO DAILY 90 days sacubitril-valsartan 24-26 mg (Entresto) 1 tab See Protocol PO BID sertraline 100 mg PO DAILY Tobacco use date assessed: 12/08/24 Dental Screening Dental Screen Date: 12/08/24 Did you have a dental visit in the last 12 months?: No Did you have a dental problem in the last 6 months where you did not have access to dental care?: No Was dental information given to patient?: No HPI HDF/flu HPI Details DM in fair control; dietasry indiscretion FOR[facility]LY [facility], [facility] Medical History Pararenal urinoma Myocardial infarction COVID-19 vaccine series completed Nephrolithiasis Type 2 diabetes mellitus with morbid obesity Obesity (BMI 30-39.9) Depression Vitamin D deficiency GERD without esophagitis Coronary artery disease Benign essential hypertension Pure hypercholesterolemia Intertrigo Type 2 diabetes mellitus with diabetic chronic kidney disease High blood pressure 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 Necrotizing fasciitis Surgical History History of surgery History of surgery Hx of cystoscopy History of breast lump/mass excision (~03/2017) History of heart artery stent (~09/2015) History of arthroscopy of left knee (~12/2011) Family History Father Alzheimer's dementia Social History (Updated 12/08/24 @ 14:43 by SIMNÓ Woodson) Household Members: None Household Members Other:: Roommate Housing: House Do you presently have visiting nurse or other home services: No Alcohol intake: former Patient Tobacco Use Status: Current everyday Tobacco user Tobacco use type: Cigarette Cigarette Packs Per Day: 0.5 Cigarettes Per Day: 5 Years Smoked: 30 +/- Packs Per Year: 0 Packs per year/per ci.00 e-Cigarette/Vaping Use: Former Use Second Hand Smoke Exposure: Yes Substance Use Type: Marijuana Advance Directives Date on File: 07/23/22 service: No Current occupational status: disabled Cognitive needs: No Hearing needs: No Vision needs: Yes Questionnaire PHQ-9 Over the last 2 weeks, how often have you been bothered by any of the following problems? 1. Little interest or pleasure in doing things: not at all 2. Feeling down, depressed, or hopeless: not at all 3. Trouble falling or staying asleep, or sleeping too much: not at all 4. Feeling tired or having little energy: not at all 5. Poor appetite or overeating: not at all 6. Feeling bad about yourself - or that you are a failure or have let yourself or your family down: not at all 7. Trouble concentrating on things, such as reading the newspaper or watching television: not at all 8. Moving or speaking so slowly that other people could have noticed. Or the opposite - being so fidgety or restless that you have been moving around a lot more than usual: not at all 9. Thoughts that you would be better off or of hurting yourself in some way: not at all Total score: 0 Depression Screening Interpretation: Negative Depression Screening Done: Yes Source: Developed by Drs. Bhavin Sanchez, Shelby Ordonez, Raymond Mcleod and colleagues, with an educational wicho from [employer]. Thrive Questionnaire Date Thrive assessed: 11/18/24 I am a: Patient What is your living situation today?: I have a steady place to live Within the past 12 months, did the food you bought not last and you didn't have the money to get more?: Never true Within the past 12 months, did you worry whether your food would run out before you got money to buy more?: Never true Do you have trouble paying for medicines?: No Do you have trouble getting transportation to medical appointments?: No Do you have trouble paying your heating and electricity bill?: No Do you have trouble taking care of your child, family member or friend?: No Do you have trouble with day-to-day activities such as bathing, preparing meals, shopping, managing finances, etc.?: No Are you currently unemployed and looking for a job?: No Are you interested in more education?: No Please select the resources that you would like help with: None Currently or been in a relationship where the following occur: No concerns reported THRIVE Score: 0 AUDIT C Alcohol Use Questionnaire (AUDIT-C) 1. How often do you have a drink containing alcohol?: Monthly or less 2. How many drinks containing alcohol do you have on a typical day when you are drinking?: 1 or 2 Total Score: 1 SAJAN-7 AMB Questionnaire SAJAN-7 Date SAJAN - 7 assessed: 12/08/24 Feeling nervous, anxious, or on edge: 0 = Not at all Not being able to stop or control worryin = Not at all Worrying too much about different things: 0 = Not at all Trouble relaxin = Not at all Being so restless that it is hard to sit still: 0 = Not at all Becoming easily annoyed or irritable: 0 = Not at all Feeling afraid as if something awful might happen: 0 = Not at all Total SAJAN-7 score (0-4 normal; 5-9 mild; 10-14 moderate; 15-21 severe): 0 Source: Developed by Drs. Bhavin Sanchez, Shelby Ordonez, Raymond Mcleod and colleagues, with an educational wicho from [employer]. Review of Systems Const Denies chills, Denies headache(s) and Denies weight loss ENT Denies headache(s) Card Denies chest pain, Denies syncope, Denies irregular heart rhythm and Denies dyspnea Resp Denies chest congestion, Denies cough and Denies dyspnea GI Denies abdominal pain, Denies change in stool character, Denies nausea and Denies vomiting Musc Denies deformity and Denies joint swelling Neuro Denies syncope and Denies headache(s) Physical exam (Primary Care) Vital Signs: Last Vital Signs Temp 96.4 F L 12/08/24 14:39 Pulse 71 12/08/24 14:39 BP 130/70 12/08/24 14:39 Pulse Ox 95 12/08/24 14:39 Oxygen Delivery Method Room Air 12/08/24 14:39 BMI result Body Mass Index 34.0 Tobacco/Smoking Status: Tobacco use Status Tobacco use date assessed 12/08/24 12/08/24 14:44 Patient Tobacco Use Status Current everyday Tobacco 12/08/24 14:43 Tobacco use type Cigarette 12/08/24 14:43 e-Cigarette/Vaping Use Former Use 12/08/24 14:43 PHQ-9: PHQ-9 Score PHQ-9: Total score 0 12/08/24 14:37 Depression Screening Interpretation: Negative Thrive Assessment: Date of Thrive Assessment Date Thrive assessed 11/18/24 12/08/24 14:37 Currently or been in a relationship where the following occur: No concerns reported Const General: cooperative, comfortable, no acute distress and alert Neck Neck: Yes no lymphadenopathy Thyroid: Thyroid normal Resp Effort & Inspection: normal respiratory effort Auscultation: clear to auscultation bilaterally Percussion: percussion normal Cardio Jugular venous distension: no JVD Palpation: normal PMI Rate: regular rate Rhythm: regular rhythm Heart sounds: S1 normal heart sound present and S2 normal heart sound present GI Inspection: Yes normal to inspection Palpation (GI): No hepatosplenomegaly present Skin General skin exam: no rashes or lesions noted Extrem General: Yes no clubbing, cyanosis or edema Coding Level of Care Code Est Pt Level 3 (09146) Diagnoses Diabetes mellitus with coincident hypertension E11.9; I10 Assessment & Plan Assessment & Plan (1) Diabetes mellitus with coincident hypertension: Code(s): E11.9 - Type 2 diabetes mellitus without complications; I10 - Essential (primary) hypertension Category: Medical Plan: due for labs; same rx Orders: Orders Thyroid Stimulating Hormone 12/08/24 Z13.29 - Encounter for screening for other suspected endocrine disorder Hemoglobin A1c 12/08/24 R73.9 - Hyperglycemia, unspecified Microalbumin, Random (w Creat) 12/08/24 E11.69 - Type 2 diabetes mellitus with other specified complication, E66.01 - Morbid (severe) obesity due to excess calories Complete Blood Count Auto Diff 12/08/24 Z13.0 - Encounter for screening for diseases of the blood and blood-forming organs and certain disorders involving the immune mechanism Comprehensive [place]. Panel Fast 12/08/24 Z13.9 - Encounter for screening, unspecified Lipid Panel 12/08/24 Z13.220 - Encounter for screening for lipoid disorders
[2024-12-08 14:39] VITALS: BP 130/70; PULSE 71; TEMP 35.8; O2SAT 95; BMI 34.0
== END 2024-12-08 14:54 | disposition home or self-care (01) ==
DX: E11.9 Type 2 diabetes mellitus without complications (principal); I10 Essential (primary) hypertension

== ENCOUNTER → 2024-12-08 14:26 | Outpatient (BNVA) | payer MEDICARE, SELFPAY | PROVIDERS: PCP Internal Medicine; Visit Provider Internal Medicine | DX: E11.9 Type 2 diabetes mellitus without complications (principal); I10 Essential (primary) hypertension | CPT/HCPCS: 99212 ==

== ENCOUNTER → 2024-12-20 12:33 | Outpatient (REF) | payer MEDICARE, SELFPAY ==
--- OUTSIDE RECORDS SUMMARY | 2024-12-20 12:51 | XMS_ITS | Patient Health Record ---
Author Organization [facility] Address [address] [place] [address] Care Team Providers Care Ski Guide Name Role Phone Rancho Duarte MD Primary Care Provider Bhavin Brody Unavailable [phone] REASON FOR REFERRAL No Information SOCIAL HISTORY Sex Assigned At : Social History Observation Description Sex Assigned At Unknown Encounters Encounter Location Date Provider Diagnosis [facility] [address] [place] [phone] 04/11/2024 Bhavin Jose [facility] [address] [place] [phone] 04/11/2024 Bhavin Jose PLAN OF TREATMENT No Information Insurance Providers Payer Name Payer Address Payer Phone Subscriber Number Group Number Insured Name Patient Relationship to Insured Coverage Start Date Coverage End Date [facility] [address] [place] [phone] [id number] ABELARDO HUBBARD Self - patient is the insured
--- OUTSIDE RECORDS SUMMARY | 2024-12-20 12:51 | XMS_ITS ---
Author Organization [facility] Address [address] [place] [phone] Care Team Providers Care Environmental Field Professional Name Role Phone Rancho Duarte MD Primary Care Provider Unavaila Bhavin Salas Unavailable [phone] REASON FOR VISIT Patient presents today for a colon screening Encounters Encounter Location Date Provider Diagnosis [facility] [address] [place] [phone] 04/11/2024 Bhavin Jose PLAN OF TREATMENT No Information
--- OUTSIDE RECORDS SUMMARY | 2024-12-20 12:51 | XMS_ITS ---
Author Organization [facility] Address [address] [place] [phone] Care Team Providers Care Packing Checker Name Role Phone Rancho Duarte MD Primary Care Provider Unavaila Bhavin Salas Unavailable [phone] Encounters Encounter Location Date Provider Diagnosis [facility] [address] [place] [phone] 04/11/2024 Bhavin Jose PLAN OF TREATMENT No Information
--- OUTSIDE RECORDS SUMMARY | 2024-12-20 12:51 | XMS_ITS ---
Author Organization [facility] Address [address] [place] [phone] Care Team Providers Care Registration Coordinator Name Role Phone Rancho Duarte MD Primary Care Provider Unavaila Bhavin Salas Unavailable [phone] REASON FOR VISIT colon screening Encounters Encounter Location Date Provider Diagnosis [facility] [address] [place] [phone] 12/08/2023 Bhavin Jose PLAN OF TREATMENT No Information
== END ==
LOC: HO.CARD 12:33
PROVIDERS: PCP Internal Medicine; Visit Provider Nurse Practitioner Family
DX: I48.91 Unspecified atrial fibrillation (principal)
CPT/HCPCS: 93225

== ENCOUNTER → 2024-12-20 12:36 | Outpatient (BNV) | payer MEDICARE, SELFPAY | PROVIDERS: PCP Internal Medicine; Visit Provider Internal Medicine | DX: I48.91 Unspecified atrial fibrillation (principal) | CPT/HCPCS: 93227 ==

== ENCOUNTER → 2024-12-26 09:43 | Outpatient (REF) | payer MEDICARE, SELFPAY ==
--- NOTE | ~2024-12-26 | NM_ITS ---
Lexiscan Myocardial perfusion study Indication: Coronary artery disease Technique: The patient was brought in for a Lexiscan perfusion study on 12/26/2024 and was injected 0.4 mg of Lexiscan intravenously. Within a minute of this injection 30 mCi of sestamibi was given intravenously. Images were obtained using the SPECT gamma camera interlaced with the gating device. Images were obtained in supine position. Resting perfusion study was performed on 12/27/2024. Patient was administered 30 mCi of sestamibi intravenously at rest. Images were then obtained in supine position. Total DLP 239 mGy-cm. Images were processed with the software and compared side to side in short axis, horizontal long axis and vertical long axis views. Findings: Raw aquisition reviewed. Both arms by her side. The stress perfusion study showed reduced tracer uptake in the distal part of anterior wall, apex and apical inferior wall. Some improvement with CT attenuation correction and hence suggestive of components of attenuation artifact. The gated study shows reduced LV systolic function with calculated LVEF of 29%. LV cavity is dilated in size. The gated study shows reduced contractility at the apex, apical anterior wall, apical inferior wall. Resting study shows reduced tracer uptake in the apical part of inferior wall, apical part of inferior wall. Apical uptake looks slightly better than stress acquisition. Gating at rest reveals LVEF of 51%. Reduced contractility in the apical part of anterior/inferior wall. The findings are consistent with mixed perfusion defect in the apex and adjacent part of anterior/inferior wall.. NM/NM cardiolite stress test Impression: 1. Myocardial perfusion imaging study shows mixed ischemia/infarct pattern in the LAD territory including the apex, apical anterior, apical inferior wall. 2. Gated LVEF is 29% during stress and 51% during rest. Correlate with echocardiogram. 3. Transient ischemic dilatation not present. EKG component of the test reported separately. Electronically signed by: Eleuterio Colvin MD 12/28/2024 12:01 PM [facility]
--- NOTE | 2024-12-26 09:45 | CA_ITS ---
Acquisition Time: 2024-12-26 09:58:13 Total Exercise Time: 00:02:00 Test Indications: CHF, AFIB, SOB Medications: SEE H&P Protocol: LEXISCAN Max HR: 82 BPM 50% of Pred: 164 BPM Max BP: 118/60 mmHG Max Work Load: 1.0 METS Pharmacological stress test with Lexiscan while pt marches in her chair, with reports of SOB and nausea, with isolated PVCs, with normotensive response to injection. Nondiagnostic EKG for ischemia. In recovery, pt treated with IVP Aminophylline 75 mg to reverse Lexiscan, after which pt feeling back to baseline. Nuclear images pending. Test reviewed with Dr. Colvin. Referred By: Safia Perez Electronically Signed By: Cortez Montemayor
== END ==
LOC: HO.CARD 09:43
PROVIDERS: PCP Internal Medicine; Visit Provider Nurse Practitioner Family
DX: I48.91 Unspecified atrial fibrillation (principal); I50.9 Heart failure, unspecified
CPT/HCPCS: 78452; 93017; A9500; J0280; J2785

== ENCOUNTER → 2024-12-26 09:45 | Outpatient (BNV) | payer MEDICARE, SELFPAY | PROVIDERS: PCP Internal Medicine | DX: I25.5 Ischemic cardiomyopathy (principal) | CPT/HCPCS: 78452 ==

== ENCOUNTER 2025-01-05 14:29 | Outpatient (AMB) | payer MEDICARE, SELFPAY ==
[2025-01-05 14:58] VITALS: BP 116/60; PULSE 70; BMI 35.2
--- NOTE | 2025-01-05 14:58 | A.OFFVIS_ITS ---
Vital Signs 01/05/25 14:58 Height 5 ft 4 in Weight 205 lb 0.478 oz BMI 35.2 BP 116/60 Blood Pressure Location Lt brachial Position Sitting Pulse 70 Pulse Source Pulse Oximeter Intake Visit Reasons: per DC abn stress Allergies No Known Allergies Allergy (Verified 12/08/24 14:38) Medication List - Last Reconciled 01/05/25 by Cortez Montemayor NP albuterol sulfate 90 mcg/actuation 1 puff PO QID PRN amlodipine 10 mg PO DAILY apixaban (Eliquis) 5 mg PO BID aspirin 81 mg PO DAILY atorvastatin 80 mg PO DAILY blood sugar diagnostic (FreeStyle Lite Strips) Use 1 test strip three times a day blood-glucose meter (FreeStyle Lite Meter kit) As directed bumetanide 2 mg See Protocol PO DAILY carvedilol 25 mg See Protocol PO BID digoxin 0.125 mg See Protocol PO DAILY ergocalciferol (vitamin D2) (Vitamin D2) 1,250 mcg PO SA gabapentin 300 mg PO TID hydroxyzine pamoate 25 mg PO BID lancets (FreeStyle Lancets) Test 3 times daily melatonin 3 mg PO BEDTIME metformin 500 mg PO DAILY vapwijew-mvv-jrdxvmy sulfate 4.5 mg iron (One Daily Multivitamins with Minerals) 1 tab PO DAILY omeprazole 40 mg PO DAILY pen needle, diabetic (BD Ultra-Fine Gi Pen Needle) As directed pyridoxine (vitamin B6) 100 mg PO DAILY 90 days sacubitril-valsartan 24-26 mg (Entresto) 1 tab See Protocol PO BID sertraline 100 mg PO DAILY HPI Comments Details: This is a 54-year-old female patient presenting for hospital discharge follow- up. Patient has a significant history of coronary artery disease with a an entire wall MS in 2015 status post LAD stenting, hypertension, cardiomyopathy, diabetes, hyperlipidemia, smoking, and obesity. Recently, she was admitted to the hospital for congestive heart failure and new onset AFib with RVR. During her hospitalization, she was diuresed with IV Lasix, and for rate control patient was treated with IV Cardizem, IV metoprolol, digoxin, and carvedilol. Patient was discharged with Bumex, carvedilol, digoxin, Entresto, and Eliquis. Following the discharge, the patient underwent outpatient myocardial perfusion study per plan. Today, the patient reports feeling much better overall but notes persistent chronic shortness of breath. Unfortunately, the patient contin ues to smoke half a pack daily. Patient is otherwise denying any exertional symptoms of chest pain, palpitations, dizziness, orthopnea, PND, leg edema, presyncope, or syncope. The patient confirms that she is compliant with all her medications. 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 Necrotizing fasciitis Surgical History History of surgery History of surgery Hx of cystoscopy History of breast lump/mass excision (~03/2017) History of heart artery stent (~09/2015) History of arthroscopy of left knee (~12/2011) Family History Father Alzheimer's dementia Social History Household Members: None Household Members Other:: Roommate Housing: House Do you presently have visiting nurse or other home services: No Alcohol intake: former Patient Tobacco Use Status: Current everyday Tobacco user Tobacco use type: Cigarette Cigarette Packs Per Day: 0.5 Cigarettes Per Day: 5 Years Smoked: 30 +/- e-Cigarette/Vaping Use: Former Use Second Hand Smoke Exposure: Yes Substance Use Type: Marijuana Advance Directives Date on File: 07/23/22 service: No Current occupational status: disabled Cognitive needs: No Hearing needs: No Vision needs: Yes Review of Systems Const Denies weakness ENT Denies dizziness Card Denies chest pain, Denies chest pain with activity, Denies syncope, Denies rapid heart rate, Denies pedal edema, Denies edema, Denies leg edema, Denies lightheadedness, Denies palpitations, Denies dyspnea, Denies dyspnea on exertion and Denies orthopnea Resp Denies cough, Denies dyspnea and Denies dyspnea on exertion GI Denies hematochezia and Denies change in stool character Musc Denies abnormal gait, Denies muscle cramps, Denies muscle weakness, Denies numbness, Denies radiating pain into limb and Denies tingling Neuro Denies abnormal gait, Denies dizziness, Denies syncope, Denies numbness, Denies tingling and Denies weakness Endo Denies palpitations Physical Exam Vital Signs: Last Vital Signs Pulse 70 01/05/25 14:58 BP 116/60 01/05/25 14:58 BMI result Body Mass Index 35.2 Const General: cooperative, healthy appearing, comfortable and no acute distress Orientation/consciousness: patient oriented x3 HEENT Head: Yes normal to inspection Neck Neck: Yes normal visual inspection, Yes trachea midline and Yes supple Chest Chest palpation & inspection: normal inspection of the chest Resp Effort & Inspection: normal respiratory effort Auscultation: clear to auscultation bilaterally, no crackles, no rales, no rhonchi and no wheezes Cardio Jugular venous distension: no JVD Palpation: normal PMI Rate: abnormal rate Heart sounds: S1 normal heart sound present, S2 normal heart sound present, no click, no gallops, no murmurs and no rubs Peripheral pulses: Peripheral pulses 2+ throughout GI Inspection: Yes normal to inspection Palpation (GI): Soft to palpation Auscultation: normal bowel sounds Skin General skin exam: no rashes or lesions noted Neuro General: patient oriented x3 Extrem General: Yes normal to inspection, No no pedal edema and No calf tenderness Psych Appearance: grossly normal Mental Status: mental status grossly normal Speech and movement: Normal speech and movement present Assessment & Plan Assessment & Plan (1) Abnormal stress test: Code(s): R94.39 - Abnormal result of other cardiovascular function study Category: Medical Plan: 12/26/2024-myocardial perfusion study showed mixed ischemia or infarct pattern in the LAD territory including apex, apical anterior, apical inferior wall with significant drop in the LVEF during stress. This has changed since last stress test in 2021. We will pursue cardiac catheterization in the next 1-2 weeks to assess for ongoing ischemia in the LAD territory, possibility of in stent restenosis. Discussed in detail the procedure, risks, indications. Patient will get labs before this. Continue aspirin therapy, high-dose statin therapy. No recent LDL levels. Goal for LDL closer to 60s. We will recheck labs and may need to go on PCSK9 inhibitor in addition. Discussed with the patient. (2) Afib: Code(s): I48.91 - Unspecified atrial fibrillation Category: Medical Plan: On exam today, heart rate irregular however controlled. Continue on carvedilol and digoxin for rate control approach. Continue Eliquis therapy for full anticoagulation therapy. No reports of signs of bleeding. (3) Cardiomyopathy: Code(s): I42.9 - Cardiomyopathy, unspecified Category: Medical Plan: 11/20/2024-echo study showed reduced EF of 35-40% with underlying regional wall motion abnormality, severely dilated left atrium, mild aortic stenosis and regurgitation, and elevated right atrial pressures. Clinically euvolemic today. Continue with Bumex, amlodipine, carvedilol, Entr esto. (4) Coronary artery disease: Code(s): I25.10 - Atherosclerotic heart disease of [place] coronary artery without angina pectoris Category: Medical Qualifiers: Coronary Disease-Associated Artery/Lesion type: [place] artery [place] vs. transplanted heart: [place] heart Associated angina: without angina Qualified Code(s): I25.10 - Atherosclerotic heart disease of [place] coronary artery without angina pectoris Plan: As above. (5) Benign essential hypertension: Code(s): I10 - Essential (primary) hypertension Category: Medical Plan: Blood pressure today is well-controlled. Continue current regimen. Continue to monitor blood pressures at home. Ideally, blood pressure goal of less than 130/80. (6) Smoking: Code(s): F17.200 - Nicotine dependence, unspecified, uncomplicated Category: Social Hx Plan: Unfortunately, patient continues to smoke half a pack daily. Discussed in detail smoking cessation. We will follow-up after cardiac catheterization. In the interim, patient understands to seek ER care in case of exertional chest pain not resolved with rest. This note was generated using voice recognition software. While every effort has been made to ensure accuracy and proper manager laundry, there may be occasional errors that could affect the content or meaning of the described symptoms. Orders: Orders Basic Metabolic Panel Today Cortez Montemayor NP R94.39 - Abnormal result of other cardiovascular function study Lipid Panel Today Cortez Montemayor NP R94.39 - Abnormal result of other cardiovascular function study Complete Blood Count no Diff Today Cortez Montemayor NP R94.39 - Abnormal result of other cardiovascular function study Prothrombin Time INR Today Cortez Montemayor NP R94.39 - Abnormal result of other cardiovascular function study Cardiac Cath LT w PCI 2 Weeks Cortez Montemayor NP R94.39 - Abnormal result of other cardiovascular function study Medications: Changed From gabapentin 200 mg (2 x 100 mg) PO TID 180 caps 0RF To gabapentin 300 mg PO TID Rancho Duarte MD Coding Level of Care Code Est Pt Level 4 (81497) Complex EM visit Add On G2211 Diagnoses Abnormal stress test R94.39 Afib I48.91 Cardiomyopathy I42.9 Coronary artery disease involving [place] coronary artery of [place] heart without angina pectoris I25.10 Coronary Disease-Associated Artery/Lesion type: [place] artery [place] vs. transplanted heart: [place] heart Associated angina: without angina Benign essential hypertension I10 Smoking F17.200 Time Spent (min) 34 Comment Time spent in reviewing the chart, test results, assessment, counseling and documentation.
--- OUTSIDE RECORDS SUMMARY | 2025-01-05 16:11 | XMS_ITS ---
Author Organization [facility] Address [address] [place] [phone] Care Team Providers Care Marbleizing Machine Tender Name Role Phone Rancho Duarte MD Primary Care Provider Bhavin Brody [phone] REASON FOR VISIT Patient presents today for a colon screening Encounters Encounter Location Date Provider Diagnosis [facility] [address] [place] [phone] 04/11/2024 Bhavin Jose Plan Of Treatment No Information Progress Notes * ABELARDO HUBBARDDOB: [birth year] (54 yo F)Acc No.[id number]:04/11/2024 Progress Notes Patient:?ABELARDO HUBBARD Provider:?Bhavin Jose MD :1970???Age:53 Y???Sex:Female D ate:04/11/2024 Address:[address] [place] [address] [id number] Pcp:Rancho Duarte MD Subjective: * Chief Complaints: * ???1. Patient presents today for a colon screening. * Medical History:? Objective: * Vitals:? Assessment: Plan: * Treatment: * * The named appointment provid er may or may not be the originator of this progress note, and it is not deemed complete until electronically signed by the appointment provider. Sign off status: Pending * Provider:?Bhavin Jose MD Date:? 024 Generated for Barbi johnson/Stephanie/eTericksmitting on:?01/05/2025 04:10 PM EST
--- OUTSIDE RECORDS SUMMARY | 2025-01-05 16:11 | XMS_ITS ---
Author Organization [facility] Address [address] [place] [phone] Care Team Providers Care Process Tank Tender Name Role Phone Rancho Duarte MD Primary Care Provider Bhavin Brody [phone] Encounters Encounter Location Date Provider Diagnosis [facility] [address] [place] [phone] 04/11/2024 Bhavin Joes Plan Of Treatment No Information Progress Notes * ABELARDO HUBBARDDOB: [birth year] (53 yo F)Acc No.[id number]:04/11/2024 Patient:?ABELARDO HUBBARD :1970???Age:53 Y???Sex:Female Address:[address] [place] [address] , [place], [address] * true * Date:? Generated for Barbi johnson/Stephanie/eTransmitting on:?01/05/2025 04:10 PM EST
--- OUTSIDE RECORDS SUMMARY | 2025-01-05 16:11 | XMS_ITS ---
Author Organization [facility] Address [address] [place] [phone] Care Team Providers Care Marine Firefighter Name Role Phone Gerald LAUGHLIN, Rancho Primary Care Provider Bhavin Brody [phone] REASON FOR VISIT colon screening Encounters Encounter Location Date Provider Diagnosis [facility] [address] [place] [phone] 12/08/2023 Bhavin Jose Plan Of Treatment No Information Progress Notes * ABELARDO HUBBARDDOB: [birth year] (54 yo F)Acc No.[id number]:12/08/2023 Progress Notes Patient:?ABELARDO HUBBARD Provider:?Bhavin Jose MD :1970???Age:53 Y???Sex:Female D ate:12/08/2023 Address:[address] [place] [address] [id number] Pcp:Rancho Duarte MD Subjective: * Chief Complaints: * ???1. Colon screening. * Medical History:? Objective: * Vitals:? [...]
--- OUTSIDE RECORDS SUMMARY | 2025-01-05 16:11 | XMS_ITS | Patient Health Record ---
Author Organization [facility] Address [address] [place] [phone] Care Team Providers Care Auto Service Station Attendant Name Role Phone Rancho Duarte MD Primary Care Provider Bhavin Brody [phone] Reason For Referral No Information Encounters Encounter Location Date Provider Diagnosis [facility] [address] [facility] [address] [place] [phone] 04/11/2024 Bhavin Jose Plan Of Treatment No Information Insurance Providers Payer Name Payer Address Payer Phone Subscriber Number Group Number Insured Name Patient Relationship to Insured Coverage Start Date Coverage End Date [facility] [address] [place] [address] [id number] ABELARDO HUBBARD Self - patient is the insured
== END 2025-01-05 15:54 | disposition home or self-care (01) ==
PROVIDERS: PCP Internal Medicine
DX: R94.39 Abnormal result of other cardiovascular function study (principal); I48.91 Unspecified atrial fibrillation; I42.9 Cardiomyopathy, unspecified; I25.10 Atherosclerotic heart disease of native coronary artery without angina pectoris; I10 Essential (primary) hypertension; F17.200 Nicotine dependence, unspecified, uncomplicated
CPT/HCPCS: 99214; G2211

== ENCOUNTER → 2025-01-05 14:29 | Outpatient (BNVA) | payer MEDICARE, SELFPAY | PROVIDERS: PCP Internal Medicine | DX: I48.91 Unspecified atrial fibrillation (principal); I42.9 Cardiomyopathy, unspecified; R94.39 Abnormal result of other cardiovascular function study; I10 Essential (primary) hypertension; F17.210 Nicotine dependence, cigarettes, uncomplicated | CPT/HCPCS: 99212 ==

== ENCOUNTER 2025-01-08 09:57 | Outpatient (REF) | payer MEDICARE, SELFPAY ==
[2025-01-08 13:32] LABS: Hematocrit 36.6 % (37.0-47.0); Hemoglobin 11.6 g/dl (12.0-16.0); Mean Corpuscular HGB Conc 31.7 g/dl (31.0-35.0); Mean Corpuscular Hemoglobin 28.3 pg (27.0-33.0); Mean Corpuscular Volume 89.3 fL (80.0-98.0); Mean Platelet Volume 12.4 fL (9.4-12.3); Platelet Count 278 X10*3/uL (160-400); White Blood Count 8.6 X10*3/uL (4.8-10.8)
[2025-01-08 13:44] LABS: INTERNATIONAL NORM RATIO 0.9 (0.9-1.1); Prothrombin Time 10.7 SEC (10.9-12.4)
[2025-01-08 15:08] LABS: Anion Gap 11 (12-20); Blood Urea Nitrogen 21 mg/dL (9-16); Calcium 9.2 mg/dL (8.4-10.2); Carbon Dioxide 25 mmol/L (22-29); Chloride 109 mmol/L (96-108); Cholesterol 145 mg/dL (<200); Estimated Glomerular Filt Rate 42; HDL Cholesterol 38 mg/dL (>40); LDL Cholesterol Calculated 63 mg/dL (<100); Potassium 4.4 mmol/L (3.3-5.1); Sodium 141 mmol/L (135-145); Triglycerides 222 mg/dL (<150)
[2025-01-08 15:32] LABS: Glucose Random 373 mg/dL (60-115)
== END 2025-01-08 09:58 | disposition home or self-care (01) ==
LOC: HO.HMGCLDS 09:57
PROVIDERS: PCP Internal Medicine
DX: R94.39 Abnormal result of other cardiovascular function study (principal); Z13.6 Encounter for screening for cardiovascular disorders; Z79.01 Long term (current) use of anticoagulants
CPT/HCPCS: 36415; 80048; 80061; 85027; 85610

== ENCOUNTER → 2025-01-25 23:59 | Outpatient (BNV) | payer MEDICARE, SELFPAY | PROVIDERS: PCP Internal Medicine; Visit Provider Internal Medicine Cardiovascular Disease | DX: I42.9 Cardiomyopathy, unspecified (principal); R93.1 Abnormal findings on diagnostic imaging of heart and coronary circulation | CPT/HCPCS: 92928; 92978; 93458; 93571; 99152 ==

== ENCOUNTER → 2025-02-08 23:59 | Outpatient (BNV) | payer MEDICARE, SELFPAY | PROVIDERS: PCP Internal Medicine; Visit Provider Internal Medicine Cardiovascular Disease | DX: I20.89 Other forms of angina pectoris (principal); I50.20 Unspecified systolic (congestive) heart failure; I42.9 Cardiomyopathy, unspecified | CPT/HCPCS: 92928; 92978; 99152 ==

== ENCOUNTER 2025-02-28 13:33 | Outpatient (AMB) | payer MEDICARE, SELFPAY ==
[2025-02-28 14:12] VITALS: BP 136/80; PULSE 74; BMI 33.3
--- NOTE | 2025-02-28 14:12 | MHC.OFFVIS ---
Vital Signs 02/28/25 14:12 Height 5 ft 4 in Weight 194 lb 0.108 oz BMI 33.3 BP 136/80 Blood Pressure Location Lt brachial Position Sitting Pulse 74 Pulse Source Pulse Oximeter Intake Visit Reasons: Follow up post PCI Intake Note: f/up post PCI Electric Meter Repairer Helper Required: No Accompanied by: Self / Same As Patient Allergies No Known Allergies Allergy (Verified 12/08/24 14:38) Medication List - Last Reconciled 02/28/25 by Cortez Montemayor NP albuterol sulfate 90 mcg/actuation 1 puff PO QID PRN amlodipine 10 mg PO DAILY apixaban (Eliquis) 5 mg PO BID aspirin 81 mg PO DAILY atorvastatin 80 mg PO DAILY blood sugar diagnostic (FreeStyle Lite Strips) Use 1 test strip three times a day blood-glucose meter (FreeStyle Lite Meter kit) As directed bumetanide 2 mg See Protocol PO DAILY carvedilol 25 mg See Protocol PO BID clopidogrel 75 mg PO DAILY digoxin 0.125 mg See Protocol PO DAILY ergocalciferol (vitamin D2) (Vitamin D2) 1,250 mcg PO SA furosemide 40 mg PO DAILY gabapentin 300 mg PO TID lancets (FreeStyle Lancets) Test 3 times daily melatonin 3 mg PO BEDTIME metformin 500 mg PO DAILY odantyfw-lhb-dofbhly sulfate 4.5 mg iron (One Daily Multivitamins with Minerals) 1 tab PO DAILY omeprazole 40 mg PO DAILY pen needle, diabetic (BD Ultra-Fine Gi Pen Needle) As directed pyridoxine (vitamin B6) 100 mg PO DAILY 90 days sacubitril-valsartan 24-26 mg (Entresto) 1 tab See Protocol PO BID sertraline 100 mg PO DAILY HPI Comments Details: This is a 54-year-old female patient presenting for a follow-up visit. Patient's medical history includes coronary artery disease with an anterior wall RI in 2015 status post LAD stent placement, hypertension, cardiomyopathy, diabetes, hyperlipidemia, smoker, and obesity. Patient was also recently diagnosed with AFib with a RVR and congestive heart failure. Following the hospitalization for this she underwent a myocardial perfusion study which was abnormal prompting a subsequent cardiac catheterization. Patient is now 2 weeks status post [address] Matta, including restenting of the LAD on 01/05/2025 and PCI to the RCA on 02/08/2025. Today, the patient reports feeling well overall with significant improvement in her symptoms. She denies any cardiac complaints including exertional chest pain, shortness of breath, palpitations, dizziness, orthopnea, PND, leg edema, fatigue, presyncope, or syncope. Patient affirms her there as to all her medications. While she continues to smoke she reports reducing her intake from half a pack per day to approximately 3 cigarettes daily for which she was commended. 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 Necrotizing fasciitis Surgical History History of surgery History of surgery Hx of cystoscopy History of breast lump/mass excision (~03/2017) History of heart artery stent (~09/2015) History of arthroscopy of left knee (~12/2011) Family History Father Alzheimer's dementia Social History Household Members: None Household Members Other:: Roommate Housing: House Do you presently have visiting nurse or other home services: No Alcohol intake: former Patient Tobacco Use Status: Current everyday Tobacco user Tobacco use type: Cigarette Cigarette Packs Per Day: 0.5 Cigarettes Per Day: 5 Years Smoked: 30 +/- e-Cigarette/Vaping Use: Former Use Second Hand Smoke Exposure: Yes Substance Use Type: Marijuana Advance Directives Date on File: 07/23/22 service: No Current occupational status: disabled Cognitive needs: No Hearing needs: No Vision needs: Yes Review of Systems Const Denies chills, Denies fatigue, Denies fever(s), Denies frequent falls, Denies weakness, Denies weight gain and Denies weight loss ENT Denies dizziness Card Denies chest pain, Denies leg edema, Denies lightheadedness, Denies palpitations, Denies dyspnea and Denies dyspnea on exertion Resp Denies cough, Denies dyspnea and Denies dyspnea on exertion GI Denies hematochezia Musc Denies abnormal gait, Denies muscle weakness, Denies numbness, Denies radiating pain into limb and Denies tingling Neuro Denies abnormal gait, Denies dizziness, Denies frequent falls, Denies numbness, Denies tingling and Denies weakness Endo Denies fatigue and Denies palpitations Physical Exam Vital Signs: Last Vital Signs Pulse 74 02/28/25 14:12 BP 140/80 H 02/28/25 14:12 BMI result Body Mass Index 33.3 Const General: cooperative, healthy appearing, comfortable and no acute distress Orientation/consciousness: patient oriented x3 HEENT Head: Yes normal to inspection Neck Neck: Yes normal visual inspection, Yes trachea midline and Yes supple Chest Chest palpation & inspection: normal inspection of the chest Resp Effort & Inspection: normal respiratory effort Auscultation: clear to auscultation bilaterally, no crackles, no rales, no rhonchi and no wheezes Cardio Jugular venous distension: no JVD Palpation: normal PMI Rate: regular rate Rhythm: regular rhythm Heart sounds: S1 normal heart sound present, S2 normal heart sound present, no click, no gallops, no murmurs and no rubs Peripheral pulses: Peripheral pulses 2+ throughout GI Inspection: Yes normal to inspection Palpation (GI): Soft to palpation Auscultation: normal bowel sounds Skin General skin exam: no rashes or lesions noted Neuro General: patient oriented x3 Extrem General: Yes normal to inspection, No no pedal edema and No calf tenderness Psych Appearance: grossly normal Mental Status: mental status grossly normal Speech and movement: Normal speech and movement present Assessment & Plan Assessment & Plan (1) S/P cardiac cath: Code(s): Z98.890 - Other specified postprocedural states Category: Surgical Plan: 01/25/2025-cardiac catheterization showed 80% stenosis in the mid RCA, patent stent in the LAD with proximal ISR approximately 70%, and ostial and proximal OM2 with 70% stenosis. Successful PCI was performed to the LAD with an iFR improving from 0.83-0.91. During this procedure, patient developed some hypoxia for which patient was treated with IV Lasix. The patient then returned for a 2nd cardiac catheterization on 02/08/2025 during which she underwent successful PCI to the RCA. The right radial access site is well healed. Continue Eliquis and Plavix. Stop aspirin therapy. Continue amlodipine, Bumex, carvedilol, digoxin, Entresto, and high-dose statin. We will repeat labs in 3 months' time to monitor lipid profile, renal function, and electrolytes. We will refer patient to cardiac rehab as well. (2) Coronary artery disease: Code(s): I25.10 - Atherosclerotic heart disease of lummi coronary artery without angina pectoris Category: Medical Qualifiers: Coronary Disease-Associated Artery/Lesion type: lummi artery [place] vs. transplanted heart: lummi heart Associated angina: without angina Qualified Code(s): I25.10 - Atherosclerotic heart disease of lummi coronary artery without angina pectoris Plan: As above. Most recent LDL at 63, within goal of less than 70. Continue statin therapy. Continue aggressive diabetes management with an A1c goal of less than 7%. Patient states her blood sugars have been stable at home. (3) Afib: Code(s): I48.91 - Unspecified atrial fibrillation Category: Medical Plan: Continue Eliquis therapy for full anticoagulation. Continue carvedilol and digoxin for rate control approach. No reported signs of bleeding. We will monitor labs periodically. (4) Cardiomyopathy: Code(s): I42.9 - Cardiomyopathy, unspecified Category: Medical Plan: 11/20/2024-echo study showed reduced EF of 35-40% with underlying regional wall motion abnormality, severely dilated left atrium, mild aortic stenosis and regurgitation, and elevated right atrial pressures. Clinically euvolemic today. We will repeat echo before her next visit. (5) Benign essential hypertension: Code(s): I10 - Essential (primary) hypertension Category: Medical Plan: Blood pressure today is well-controlled. Continue current regimen. Continue to monitor blood pressures at home. Ideally, blood pressure goal of less than 130/80. (6) Smoking: Code(s): F17.200 - Nicotine dependence, unspecified, uncomplicated Category: Social Hx Plan: Currently, patient continues to smoke 3 cigarettes a day. She was commended for this progress however encouraged her to continue working towards complete cessation. We will follow-up in 6 months' time. In the interim, patient will call the office with any concerns or change in symptoms. This note was generated using voice recognition software. While every effort has been made to ensure accuracy and proper mortgage closer, there may be occasional errors that could affect the content or meaning of the described symptoms. Orders: Orders Cardiac Rehab Today Z98.890 - Other specified postprocedural states Basic Metabolic Panel 3 Months I25.10 - Atherosclerotic heart disease of lummi coronary artery without angina pectoris, I48.91 - Unspecified atrial fibrillation Lipid Panel 3 Months Z98.890 - Other specified postprocedural states Complete Blood Count no Diff 3 Months Z98.890 - Other specified postprocedural states CA echo transthoracic complete 5 Months I42.9 - Cardiomyopathy, unspecified Medications: New clopidogrel 75 mg PO DAILY 90 tabs 3RF Coding Level of Care Code Est Pt Level 4 (30332) Complex EM visit Add On G2211 Diagnoses S/P cardiac cath Z98.890 Coronary artery disease involving lummi coronary artery of lummi heart without angina pectoris I25.10 Coronary Disease-Associated Artery/Lesion type: lummi artery [place] vs. transplanted heart: lummi heart Associated angina: without angina Afib I48.91 Cardiomyopathy I42.9 Benign essential hypertension I10 Smoking F17.200 Time Spent (min) 32
== END 2025-02-28 15:05 | disposition home or self-care (01) ==
LOC: HO.HCS 13:34
PROVIDERS: PCP Internal Medicine
DX: Z98.890 Other specified postprocedural states (principal); I25.10 Atherosclerotic heart disease of native coronary artery without angina pectoris; I48.91 Unspecified atrial fibrillation; I42.9 Cardiomyopathy, unspecified; I10 Essential (primary) hypertension; F17.200 Nicotine dependence, unspecified, uncomplicated
CPT/HCPCS: 99214; G2211

== ENCOUNTER → 2025-02-28 13:33 | Outpatient (BNVA) | payer MEDICARE, SELFPAY | PROVIDERS: PCP Internal Medicine | DX: I25.10 Atherosclerotic heart disease of native coronary artery without angina pectoris (principal); I48.91 Unspecified atrial fibrillation; I42.9 Cardiomyopathy, unspecified; I10 Essential (primary) hypertension; F17.210 Nicotine dependence, cigarettes, uncomplicated; Z98.890 Other specified postprocedural states | CPT/HCPCS: 99212 ==

== ENCOUNTER 2025-03-29 12:53 | Outpatient (AMB) | payer MEDICARE, SELFPAY ==
[2025-03-29 13:02] VITALS: BP 132/84; PULSE 72; O2SAT 95; BMI 33.2
--- NOTE | 2025-03-29 13:02 | MHC.PC.OV ---
Vital Signs 03/29/25 13:02 Height 5 ft 4 in Weight 193 lb 4 oz BMI 33.2 BP 132/84 Blood Pressure Location Lt brachial Position Sitting Pulse 72 Pulse Source Pulse Oximeter Pulse Oximetry (%) 95 Oxygen Delivery Method Room Air Intake Visit Reasons: LARISSA DR Duarte Residential Care Officer Required: No Accompanied by: Self / Same As Patient Allergies No Known Allergies Allergy (Verified 03/29/25 17:42) Medication List - Last Reconciled 03/29/25 by Declan Arriaga MD albuterol sulfate 90 mcg/actuation 1 puff PO QID PRN amlodipine 10 mg PO DAILY apixaban (Eliquis) 5 mg PO BID atorvastatin 80 mg PO DAILY blood sugar diagnostic (FreeStyle Lite Strips) Use 1 test strip three times a day blood-glucose meter (FreeStyle Lite Meter kit) As directed bumetanide 2 mg See Protocol PO DAILY carvedilol 25 mg See Protocol PO BID clopidogrel 75 mg PO DAILY digoxin 0.125 mg See Protocol PO DAILY ergocalciferol (vitamin D2) (Vitamin D2) 1,250 mcg PO SA gabapentin 300 mg PO TID insulin NPH isoph U-100 human (Humulin N NPH U-100 Insulin KwikPen) 15 units (0.15 mL) subcut QAM 30 days lancets (FreeStyle Lancets) Test 3 times daily melatonin 3 mg PO BEDTIME metformin 500 mg PO DAILY lbbkngwc-wkt-ombkvgr sulfate 4.5 mg iron (One Daily Multivitamins with Minerals) 1 tab PO DAILY omeprazole 40 mg PO DAILY pen needle, diabetic (BD Ultra-Fine Gi Pen Needle) As directed pyridoxine (vitamin B6) 100 mg PO DAILY 90 days sacubitril-valsartan 24-26 mg (Entresto) 1 tab See Protocol PO BID sertraline 100 mg PO DAILY Tobacco use date assessed: 03/29/25 Dental Screening Dental Screen Date: 03/29/25 Did you have a dental visit in the last 12 months?: No Did you have a dental problem in the last 6 months where you did not have access to dental care?: No Was dental information given to patient?: No HPI LARISSA DR Duarte HPI Details Patient comes in today for her follow-up visit - is transferring over from Dr. Duarte, who retired from the practice a couple of months ago Patient states that she currently feels okay She was admitted to the hospital earlier this year in November 2024 due to A Fib with RVR and CHF She was diuresed with IV Lasix and was started on IV Cardizem, IV Metoprolol, Digoxin and Carvedilol for rate control Patient was then seen by cardiology for follow up and underwent outpatient cardiac stress testing /myocardial perfusion study on 12/26/2024, which revealed (+) mixed ischemia or infarct pattern in the LAD territory including apex, apical anterior, apical inferior wall with significant drop in the LVEF during stress. This has changed since last stress test in 2021. She was then sent for cardiac catheterization, which she underwent twice over the past couple of months, with restenting of the LAD on 01/05/2025 and PCI to the RCA on 02/08/2025 Patient states that her symptoms have significantly improved with PCI She denies any headaches or dizziness Denies any chest pains, no increased shortness of breath No nausea/vomiting, no abdominal pain No change in bowel habits noted She is currently awaiting appointment to start cardiac rehab and also for a repeat echocardiogram for further evaluation Patient does not have any follow-up labs done recently [facility] Medical History (Updated 03/30/25 @ 03:59 by Declan Arriaga MD) Patellofemoral arthritis of left knee Primary osteoarthritis of hips, bilateral Smoker Essential hypertension Persistent atrial fibrillation Ischemic cardiomyopathy Mixed hyperlipidemia Chronic kidney disease (CKD), stage III (moderate) Contraindication to percutaneous coronary intervention (PCI) PAF (paroxysmal atrial fibrillation) 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 Myocardial infarction COVID-19 vaccine series completed Nephrolithiasis Type 2 diabetes mellitus with morbid obesity Obesity (BMI 30-39.9) Depression Vitamin D deficiency GERD without esophagitis Coronary artery disease Benign essential hypertension Pure hypercholesterolemia Intertrigo 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 Necrotizing fasciitis Surgical History (Updated 03/29/25 @ 19:12 by Declan Arriaga MD) History of cardiac catheterization History of surgery History of surgery Hx of cystoscopy History of breast lump/mass excision (~03/2017) History of heart artery stent (~09/2015) History of arthroscopy of left knee (~12/2011) Family History Father Alzheimer's dementia Social History Household Members: None Household Members Other:: Roommate Housing: House Do you presently have visiting nurse or other home services: No Alcohol intake: former Patient Tobacco Use Status: Current everyday Tobacco user Tobacco use type: Cigarette Cigarette Packs Per Day: 0.5 Cigarettes Per Day: 5 Years Smoked: 30 +/- e-Cigarette/Vaping Use: Former Use Second Hand Smoke Exposure: Yes Substance Use Type: Marijuana Advance Directives Date on File: 07/23/22 service: No Current occupational status: disabled Cognitive needs: No Hearing needs: No Vision needs: Yes Questionnaire PHQ-9 Over the last 2 weeks, how often have you been bothered by any of the following problems? 1. Little interest or pleasure in doing things: not at all 2. Feeling down, depressed, or hopeless: not at all 3. Trouble falling or staying asleep, or sleeping too much: not at all 4. Feeling tired or having little energy: not at all 5. Poor appetite or overeating: not at all 6. Feeling bad about yourself - or that you are a failure or have let yourself or your family down: not at all 7. Trouble concentrating on things, such as reading the newspaper or watching television: not at all 8. Moving or speaking so slowly that other people could have noticed. Or the opposite - being so fidgety or restless that you have been moving around a lot more than usual: not at all 9. Thoughts that you would be better off or of hurting yourself in some way: not at all Total score: 0 Depression Screening Interpretation: Negative Depression Screening Done: Yes 56223 - PHQ-9 Billing: Yes Source: Developed by Drs. Bhavin Sanchez, Shelby Ordonez, Raymond Mcleod and colleagues, with an educational wicho from [employer]. Thrive Questionnaire Date Thrive assessed: 03/29/25 I am a: Patient What is your living situation today?: I have a steady place to live Within the past 12 months, did the food you bought not last and you didn't have the money to get more?: Often true Within the past 12 months, did you worry whether your food would run out before you got money to buy more?: Often true Do you have trouble paying for medicines?: Yes Do you have trouble getting transportation to medical appointments?: No Do you have trouble paying your heating and electricity bill?: No Do you have trouble taking care of your child, family member or friend?: No Do you have trouble with day-to-day activities such as bathing, preparing meals, shopping, managing finances, etc.?: No Are you currently unemployed and looking for a job?: I choose not to answer this question Are you interested in more education?: No Please select the resources that you would like help with: Food and Paying for medicine Currently or been in a relationship where the following occur: I choose not to answer THRIVE Score: 2 AUDIT C Alcohol Use Questionnaire (AUDIT-C) 1. How often do you have a drink containing alcohol?: Never 3. How often do you have six or more drinks on one occasion?: Never Total Score: 0 Score Reviewed/Action Taken: Yes SAJAN-7 AMB Questionnaire SAJAN-7 Date SAJAN - 7 assessed: 03/29/25 Feeling nervous, anxious, or on edge: 0 = Not at all Not being able to stop or control worryin = Not at all Worrying too much about different things: 0 = Not at all Trouble relaxin = Not at all Being so restless that it is hard to sit still: 0 = Not at all Becoming easily annoyed or irritable: 0 = Not at all Feeling afraid as if something awful might happen: 0 = Not at all Total SAJAN-7 score (0-4 normal; 5-9 mild; 10-14 moderate; 15-21 severe): 0 Source: Developed by Drs. Bhavin Sanchez, Shelby Ordonez, Raymond Mcleod and colleagues, with an educational wicho from [employer]. Review of Systems Const Denies chills, Reports fatigue, Denies fever(s) and Denies headache(s) ENT Denies dysphagia, Denies dizziness, Denies otalgia, Denies headache(s), Denies neck pain, Denies odynophagia and Denies sore throat Card Denies chest pain, Denies palpitations and Reports dyspnea on exertion (mild) Resp Denies chest congestion, Denies cough and Reports dyspnea on exertion (mild) GI Denies abdominal pain, Denies constipation, Denies dysphagia, Denies heartburn, Denies diarrhea, Denies nausea, Denies odynophagia and Denies vomiting Denies difficulty voiding, Denies nocturia and Denies dysuria Musc Denies back pain and Denies neck pain Skin/Breast Denies rash Neuro Denies dizziness and Denies headache(s) Endo Reports fatigue and Denies palpitations Physical exam (Primary Care) Vital Signs: Last Vital Signs Pulse 72 03/29/25 13:02 BP 132/84 03/29/25 13:02 Pulse Ox 95 03/29/25 13:02 Oxygen Delivery Method Room Air 03/29/25 13:02 BMI result Body Mass Index 33.2 Tobacco/Smoking Status: Tobacco use Status Tobacco use date assessed 03/29/25 03/29/25 13:05 Patient Tobacco Use Status Current everyday Tobacco 03/29/25 13:05 Tobacco use type Cigarette 03/29/25 13:05 e-Cigarette/Vaping Use Former Use 03/29/25 13:05 PHQ-9: PHQ-9 Score PHQ-9: Total score 0 03/29/25 22:31 Depression Screening Interpretation: Negative Thrive Assessment: Date of Thrive Assessment Date Thrive assessed 03/29/25 03/29/25 13:05 Currently or been in a relationship where the following occur: I choose not to answer Const General: no acute distress and alert HENMT Ears: TM's normal bilaterally and EAC's normal Throat: Yes posterior oropharynx normal and Yes tonsils normal (no TP congestion) Neck Neck: Yes supple and No lymphadenopathy Thyroid: Thyroid normal Resp Auscultation: clear to auscultation bilaterally, no rales and no wheezes Cardio Rate: regular rate Rhythm: abnormal rhythm irregularly irregular Heart sounds: no murmurs GI Palpation (GI): Soft to palpation and nontender Auscultation: normal bowel sounds General: Yes no CVA tenderness Back/Spine/Pelvis Back: no CVA tenderness Thoracic/Lumbar Spine: No lumbar spinal tenderness Skin Rashes: no rashes Extrem General: Yes no clubbing, cyanosis or edema Results AMB Hemoglobin A1c AMB Hemoglobin A1c 14 % Last Edit by SIMÓN Scott on 03/29/25 13:31 Results Reviewed Results Reviewed: Laboratory Last Values Hgb A1c (Clinic) 14 % (4.0-6.0) H 03/29/25 13:16 Coding Level of Care Code Est Pt Level 4 (34150) Complex EM visit Add On G2211 Diagnoses Coronary artery disease involving [place] coronary artery of [place] heart without angina pectoris I25.10 Coronary Disease-Associated Artery/Lesion type: [place] artery [place] vs. 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 Chronic kidney disease stage: stage 3 (moderate) Chronic kidney disease stage 3 subtype: stage 3b (GFR 30-44) Stage 3b chronic kidney disease N18.32 Chronic kidney disease stage 3 subtype: stage 3b (GFR 30-44) Mixed hyperlipidemia E78.2 GERD without esophagitis K21.9 Vitamin D deficiency E55.9 Episode of recurrent major depressive disorder, unspecified depression episode severity F33.9 Depression Type: major depressive disorder Major depression recurrence: recurrent Active/Remission status: currently active Major depression episode severity: unspecified Smoker F17.200 Obesity (BMI 30-39.9) E66.9 Additional Codes PHQ-9 - 93373 - PHQ-9 Billing: Yes ([id number]) Assessment & Plan Assessment & Plan (1) Coronary artery disease: Comment: S/P anterior wall MA in 2014 - resulting in LAD stenting; S/P cardiac catheterization x 2 in 2024, with restenting of the LAD on 01/05/2025 and staged PCI to the RCA (DARLENE to mid-RCA) on 02/08/2025 Code(s): I25.10 - Atherosclerotic heart disease of [place] coronary artery without angina pectoris Category: Medical Qualifiers: Coronary Disease-Associated Artery/Lesion type: [place] artery [place] vs. transplanted heart: [place] heart Associated angina: without angina Qualified Code(s): I25.10 - Atherosclerotic heart disease of [place] coronary artery without angina pectoris Plan: S/P anterior wall MA in 2014, resulting in stenting of LAD S/P cardiac catheterization x 2 in 2024, with restenting of the LAD on 01/05/2025 and staged PCI to the RCA (DARLENE to mid-RCA) on 02/08/2025 Continue Clopidogrel 75 mg QD; Aspirin 81 mg QD was stopped by Dr. Matta following her most recent cardiac catheterization in 01/2025 Follow up with cardiology as scheduled (2) Ischemic cardiomyopathy: Code(s): I25.5 - Ischemic cardiomyopathy Category: Medical Plan: Patient's most recent echocardiogram done on 11/20/2024 revealed moderately reduced LV ejection fraction with LVEF of 35-40% with underlying regional wall motion abnormality, severely dilated left atrium, mild aortic stenosis and regurgitation and normal measured RV systolic pressure with significantly elevated right atrial pressures She is currently classified as NYHA Class II heart failure Continue Entresto 24-26 mg BID, Carvedilol 25 mg BID, Digoxin 0.125 mg QD and Bumetanide 2 mg QD She has been referred to and is scheduled to start cardiac rehab soon Follow up with cardiology as scheduled (3) Persistent atrial fibrillation: Code(s): I48.19 - Other persistent atrial fibrillation Category: Medical Plan: Patient currently remains in atrial fibrillation but rate is controlled Continue Eliquis 5 mg BID for full anticoagulation Continue Digoxin 0.125 mg QD and Carvedilol 25 mg BID (4) Essential hypertension: Code(s): I10 - Essential (primary) hypertension Category: Medical Plan: Reinforced low sodium diet - goal is systolic BP of at least 120 to 130 mm or less Continue Amlodipine 10 mg QD, Carvedilol 25 mg BID and Entresto 24-26 mg BID (5) Type 2 diabetes mellitus with diabetic chronic kidney disease: Code(s): E11.22 - Type 2 diabetes mellitus with diabetic chronic kidney disease Category: Medical Qualifiers: 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 Chronic kidney disease stage: stage 3 (moderate) Chronic kidney disease stage 3 subtype: stage 3b (GFR 30-44) Qualified Code(s): E11.22 - Type 2 diabetes mellitus with diabetic chronic kidney disease; N18.32 - Chronic kidney disease, stage 3b; Z79.4 - 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 Plan: Her in-office HgbA1c today is at 14.0% - goal is at least <7.0% Reinforced diabetic diet Patient used to be on NPH Insulin 15 units Q AM along with her Metformin 500 mg QD but she admits that she stopped taking her NPH Insulin about 2 to 3 years ago on her own and never asked to have it refilled or made her previous PCP aware that she was no longer taking her NPH Insulin Have advised her that with her comorbidities, especially her CAD and cardiomyopathy, having uncontrolled diabetes will significantly increase her risks of recurrence and she agress to go back on her insulin Will start her back on NPH Insulin 15 units Q AM and continue on Metformin 500 mg Q PM - her in-office HgbA1c was at 6.2% back in 2020 when she was on this regimen Will also refer her to endocrinology for further management and also for diabetic teaching (6) Chronic kidney disease (CKD), stage III (moderate): Code(s): N18.30 - Chronic kidney disease, stage 3 unspecified Category: Medical Qualifiers: Chronic kidney disease stage 3 subtype: stage 3b (GFR 30-44) Qualified Code(s): N18.32 - Chronic kidney disease, stage 3b Plan: Patient's most recent lab results places her in stage 3b CKD Have advised her that strict control of her blood pressure and blood sugar will help stabilize her renal function Will continue to monitor her renal function closely and if this progresses, will refer to nephrology for co-management (7) Mixed hyperlipidemia: Code(s): E78.2 - Mixed hyperlipidemia Category: Medical Plan: Reinforced low cholesterol diet Continue Atorvastatin 80 mg QD Will have patient recheck her labs and fasting lipids in 3 months for follow up (8) GERD without esophagitis: Code(s): K21.9 - Gastro-esophageal reflux disease without esophagitis Category: Medical Plan: Dietary restrictions in GERD reinforced Continue Omeprazole 40 mg QD (9) Vitamin D deficiency: Code(s): E55.9 - Vitamin D deficiency, unspecified Category: Medical Plan: Continue Vitamin D2 1250 mcg once a week (10) Depression: Comment: same rx Code(s): F32.9 - Major depressive disorder, single episode, unspecified Category: Medical Qualifiers: Depression Type: major depressive disorder Major depression recurrence: recurrent Active/Remission status: currently active Major depression episode severity: unspecified Qualified Code(s): F33.9 - Major depressive disorder, recurrent, unspecified Plan: Continue Sertraline 100 mg QD (11) Smoker: Code(s): F17.200 - Nicotine dependence, unspecified, uncomplicated Category: Social Hx Plan: Patient unfortunately continues to smoke despite her CAD and cardiomyopathy Have counseled patient again today on complete smoking cessation (12) Obesity (BMI 30-39.9): Comment: see above Code(s): E66.9 - Obesity, unspecified Category: Medical Plan: Reinforced diet' exercise and weight loss are unrealistic at present given patient's functional status and multiple comorbidities Plan Follow up in 3 months Orders: Orders AMB Hemoglobin A1c 03/29/25 Z13.9 - Encounter for screening, unspecified Complete Blood Count Auto Diff 3 Months D64.9 - Anemia, unspecified Lipid Panel 3 Months E78.00 - Pure hypercholesterolemia, unspecified Hemoglobin A1c 3 Months E11.9 - Type 2 diabetes mellitus without complications Vitamin B12 and Folate 3 Months E53.8 - Deficiency of other specified B group vitamins B Type Natriuretic Peptide 3 Months I50.9 - Heart failure, unspecified Digoxin 3 Months I50.20 - Unspecified systolic (congestive) heart failure Glutamic acid decarboxylase Ab 3 Months E11.9 - Type 2 diabetes mellitus without complications Comprehensive [place]. Panel Fast 3 Months E78.00 - Pure hypercholesterolemia, unspecified Microalbumin, Random (w Creat) 3 Months E11.9 - Type 2 diabetes mellitus without complications TSH reflex Free T4 3 Months E78.00 - Pure hypercholesterolemia, unspecified UA CC w/rflx Micro + Cult 3 Months R30.0 - Dysuria Vitamin D 25-OH Total 3 Months E55.9 - Vitamin D deficiency, unspecified C Peptide 3 Months E11.9 - Type 2 diabetes mellitus without complications Referrals Endocrinology Referral E11.22 - Type 2 diabetes mellitus with diabetic chronic kidney disease, Z79.4 - halfway (current) use of insulin Diabetes Education Referral E11.22 - Type 2 diabetes mellitus with diabetic chronic kidney disease, N18.32 - Chronic kidney disease, stage 3b, Z79.4 - 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
== END 2025-03-29 13:41 | disposition home or self-care (01) ==
LOC: HO.HMCH 12:54
PROVIDERS: PCP Internal Medicine; Visit Provider Internal Medicine
DX: Z13.9 Encounter for screening, unspecified (principal)

== ENCOUNTER → 2025-03-29 12:53 | Outpatient (BNVA) | payer MEDICARE, SELFPAY | PROVIDERS: PCP Internal Medicine; Visit Provider Internal Medicine | DX: I25.10 Atherosclerotic heart disease of native coronary artery without angina pectoris (principal); I25.5 Ischemic cardiomyopathy; I48.19 Other persistent atrial fibrillation; E11.22 Type 2 diabetes mellitus with diabetic chronic kidney disease; I12.9 Hypertensive chronic kidney disease with stage 1 through stage 4 chronic kidney disease, or unspecified chronic kidney disease; N18.32 Chronic kidney disease, stage 3b; E78.2 Mixed hyperlipidemia; K21.9 Gastro-esophageal reflux disease without esophagitis; E55.9 Vitamin D deficiency, unspecified; F33.9 Major depressive disorder, recurrent, unspecified; E66.9 Obesity, unspecified; Z68.33 Body mass index [BMI] 33.0-33.9, adult; F17.210 Nicotine dependence, cigarettes, uncomplicated; I25.2 Old myocardial infarction; Z79.01 Long term (current) use of anticoagulants; Z79.02 Long term (current) use of antithrombotics/antiplatelets; Z79.4 Long term (current) use of insulin; Z79.899 Other long term (current) drug therapy | CPT/HCPCS: 83036; 96127; 99212 ==

== ENCOUNTER 2025-06-07 19:12 | Inpatient (IN) | payer MEDICARE, SELFPAY ==
--- NOTE | ~2025-06-07 | CT_ITS ---
CLINICAL HISTORY: Nausea, vomiting, rule out SBO CT abdomen and pelvis with contrast Comparison: CT/SR - CT ABDOMEN PELVIS WITHOUT IV CONTRAST - 11/17/22 13:53 EST Findings: Sequela of prior granulomatous disease noted. Right basilar subsegmental atelectasis. Heart is enlarged. Small pericardial effusion is present. Liver has a nodular contour. No focal hepatic lesion identified. Gallstones in the dependent gallbladder. Pancreas and spleen are within normal limits. Bilateral indeterminate adrenal nodules measure 1.4 cm. Kidneys are non hydronephrotic. The right kidney is atrophic or hypoplastic. Areas of renal cortical thinning and hypoenhancement are present, possibly prior scarring. Exophytic cystic structure arising from the posterior right kidney measures 1.7 x 2 cm, possibly cyst incompletely characterized on this exam. Nonobstructing renal calculi are present. Increased intramural fat noted in the right colon, possibly sequela of inflammatory bowel disease. Atherosclerotic vascular calcifications are present. No bowel obstruction, significant intra-abdominal free fluid or pneumoperitoneum Calcified fibroid uterus noted. Mild fat stranding or edema surrounds the urinary bladder. No acute fracture. IMPRESSION: 1. No evidence of small-bowel obstruction. 2. Increased intramural fat in the right colon, possibly sequela of inflammatory bowel disease. Please correlate clinically. 3. Indeterminate bilateral adrenal nodules. Routine nonemergent follow-up adrenal mass protocol CT may be helpful for further characterization if clinically indicated. 4. Enlarged heart with mild pericardial effusion. 5. Ancillary CT findings detailed above. This document has been electronically signed by: Jefferson Vu MD, PHD on 06/08/2025 01:19:32
--- NOTE | ~2025-06-07 | XR_ITS ---
CLINICAL HISTORY: Stainable ulcer 5th metacarpal Right foot three views Comparison: None provided Findings: No acute fracture or dislocation identified. Dorsal soft tissue edema over the metatarsal regions. Soft tissue edema and emphysema in lateral foot. This is adjacent to 5th metatarsal head and proximal phalanx. No underlying focal bony abnormality is demonstrated. Calcific densities are noted within the abnormality. These may be foreign bodies within soft tissues. Impression: Lateral foot soft tissue abnormalities discussed above No acute bony abnormality This document has been electronically signed by: Joel Torres MD on 06/07/2025 23:57:30
--- NOTE | ~2025-06-07 | XR_ITS ---
CLINICAL HISTORY: chest pain 2 view chest x-ray Comparison: 11/19/2024 Findings: New small right pleural effusion noted. No acute infiltrates have developed. Stable chronic interstitial fibrosis pattern. Stable right diaphragm elevation. No pneumothorax. Heart size normal. No acute bony abnormalities. Impression: Small right pleural effusion Stable chronic findings This document has been electronically signed by: Joel Torres MD on 06/07/2025 19:53:28
--- NOTE | 2025-06-07 19:18 | ECG_ITS ---
Test Reason : CP Blood Pressure : */* mmHG Vent. Rate : 81 BPM Atrial Rate : * BPM P-R Int : * ms QRS Dur : 84 ms QT Int : 344 ms P-R-T Axes : * -18 155 degrees QTcB Int : 399 ms Atrial fibrillation Anteroseptal infarct (cited on or before 22-Sep-2015) Abnormal ECG When compared with ECG of 17-Nov-2024 08:33, Vent. rate has decreased by 56 bpm Referred By: Cortney Jacobson Electronically Signed By: ROLLY FREDERICK
--- NOTE | 2025-06-07 19:29 | ED.GENADULT ---
HPI - General Adult General Chief complaint: Chest Pain Stated complaint: chest pain,sob stents placement 03/25 Time Seen by Provider: 06/07/25 22:49 Source: patient Mode of arrival: ambulatory Limitations: no limitations History of Present Illness ED Provider: Dr. Elsa Warner HPI narrative: Patient comes to the emergency room complaining of chest pain that started today. Patient states that it is not so much as chest pain but more like abdominal pressure. Patient states that she has been dry heaving quite a bit, not quite vomiting. Patient states that she has chronic diarrhea and is unchanged. Patient states that in the last few days, she has noticed that she gets short of breath with exertion. Denies chest pain. Patient states that she is known to have CHF and occasionally has pleural effusions. Patient states that she had cardiac stents placed a proximally 3 months ago. At this time, patient denies chest pain or shortness of breath that she has arrest. Related Data Home Medications ?Medication ?Instructions ?Recorded ?Confirmed melatonin 3 mg tablet 3 mg PO BEDTIME 03/17/21 03/29/25 multivitamin with minerals-ferrous 1 tab PO DAILY 03/17/21 03/29/25 sulfate 4.5 mg iron tablet (One Daily Multivitamins with Minerals) gabapentin 100 mg capsule 300 mg PO TID 01/05/25 03/29/25 Previous Rx's ?Medication ?Instructions ?Recorded sertraline 100 mg tablet 100 mg PO DAILY #30 caps 12/13/20 blood-glucose meter (FreeStyle #1 ea 08/19/22 Lite Meter kit) lancets 28 gauge (FreeStyle #100 ea 11/14/22 Lancets) blood sugar diagnostic (FreeStyle #100 ea 06/04/23 Lite Strips) pen needle, diabetic 32 gauge x #50 ea 08/09/23 (BD Ultra-Fine Gi Pen Needle) albuterol sulfate 90 mcg/actuation 1 puff PO QID PRN for dyspnea #6.7 10/27/24 aerosol inhaler grams pyridoxine (vitamin B6) 100 mg 100 mg PO DAILY 90 days #90 tabs 12/12/24 tablet apixaban 5 mg tablet (Eliquis) 5 mg PO BID #60 tabs 01/12/25 bumetanide 1 mg tablet 2 mg PO DAILY #30 tabs 01/12/25 amlodipine 10 mg tablet 10 mg PO DAILY #30 tabs 01/22/25 clopidogrel 75 mg tablet 75 mg PO DAILY #90 tabs 02/28/25 insulin NPH isoph U-100 human 100 15 unit (0.15 mL) subcut QAM 30 03/29/25 unit/mL (3 mL) subcutaneous pen days #6 mL (Humulin N NPH U-100 Insulin KwikPen) ergocalciferol (vitamin D2) 1,250 1,250 mcg PO QWEEK #30 caps 03/30/25 mcg (50,000 unit) capsule (Vitamin D2) atorvastatin 80 mg tablet 80 mg PO DAILY #30 tabs 04/11/25 metformin 500 mg tablet 500 mg PO DAILY #90 tabs 04/11/25 carvedilol 25 mg tablet 25 mg PO BID #60 tabs 05/06/25 digoxin 125 mcg (0.125 mg) tablet 0.125 mg PO DAILY #30 tabs 05/06/25 sacubitril 24 mg-valsartan 26 mg 1 tab PO BID #60 tabs 05/06/25 tablet (Entresto) pantoprazole 40 mg tablet,delayed 40 mg PO DAILY 90 days #90 tabs 05/31/25 release Allergies Allergy/AdvReac Type Severity Reaction Status Date / Time No Known Allergies Allergy Verified 06/07/25 19:30 Review of Systems Review of Systems: Constitutional : No Weight loss, No Fever, No Chills, No Night Sweats, No Fatigue, No Malaise ENT/Mouth : No Hearing loss, No Ear Pain, No Nasal Congestion, No Sinus Pain, No Hoarseness, No sore throat, No Rhinorrhea, No Swallowing Difficulty Eyes: No Eye Pain, No Swelling, No Redness, No Foreign Body, No Discharge, No Vision Changes Cardiovascular : Reported mild chest pain which resolved, shortness of breath only with exertion Respiratory : No Cough, No Sputum, No Wheezing, No Smoke Exposure, No Dyspnea Gastrointestinal : Complaining of nausea, dry heaving, chronic diarrhea Genitourinary : no irregular bleeding, No Dysuria, No Urinary Frequency, No Hematuria, No Urinary Incontinence, No Urgency, No Flank Pain, No Urinary Flow Changes, No Hesitancy Musculoskeletal : No joint pain, No Myalgias, No Joint Swelling Skin : No Skin Lesions, No rash Neuro : No Weakness, No Numbness, No Paresthesias, No Loss of Consciousness, No Dizziness, No Headache Psych : No Anxiety/Panic, No Depression, No SI/HI/AH/VH, No Social Issues, Heme/Lymph: No Bruising, No Bleeding,No Lymphadenopathy Endocrine : No Polyuria, No Polydipsia, No Temperature Intolerance [facility] Past Medical History Medical History Patellofemoral arthritis of left knee Primary osteoarthritis of hips, bilateral Smoker Essential hypertension Persistent atrial fibrillation Ischemic cardiomyopathy Mixed hyperlipidemia Chronic kidney disease (CKD), stage III (moderate) Contraindication to percutaneous coronary intervention (PCI) PAF (paroxysmal atrial fibrillation) 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 Myocardial infarction COVID-19 vaccine series completed Nephrolithiasis Type 2 diabetes mellitus with morbid obesity Obesity (BMI 30-39.9) Depression Vitamin D deficiency GERD without esophagitis Coronary artery disease Benign essential hypertension Pure hypercholesterolemia Intertrigo 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 Necrotizing fasciitis Surgical History (Updated 03/29/25 @ 19:12 by Declan Arriaga MD) History of cardiac catheterization History of surgery History of surgery Hx of cystoscopy History of breast lump/mass excision (~03/2017) History of heart artery stent (~09/2015) History of arthroscopy of left knee (~12/2011) Family History Family History Father Alzheimer's dementia Social History Social History Household Members: None Household Members Other:: Roommate Housing: House Do you presently have visiting nurse or other home services: No Alcohol intake: former Patient Tobacco Use Status: Current everyday Tobacco user Tobacco use type: Cigarette Cigarette Packs Per Day: 0.5 Cigarettes Per Day: 5 Years Smoked: 30 +/- Smoked in Last 30 Days: Yes e-Cigarette/Vaping Use: Former Use Second Hand Smoke Exposure: Yes Use of substances other than those prescribed or required for medical reasons: Yes Substance Use Type: Marijuana Advance Directives: Yes Advance Directives Information Provided: Yes Advance Directives on File: No Advance Directives Date on File: 07/23/22 service: No Current occupational status: disabled Cognitive needs: No Hearing needs: No Vision needs: Yes Physical Exam ED Exam Exam: Appearance: Alert. Oriented X3. No acute distress. Eyes: Pupils equal, round and reactive to light. ENT: Pharynx normal. Neck: Normal inspection. Neck supple. No lymph nodes noted. No crepitus CVS: Normal heart rate and rhythm. Pulses normal. Normal S1 and S2 Respiratory: No respiratory distress. Breath sounds normal. No Wheezing. No rales Abdomen: Soft and nontender. No rigidity. No distention. Dry you Skin: Skin warm and dry. Normal skin color. Normal skin turgor. Extremities: +2 pitting edema bilaterally No Lacerations. No Rash. On physical exam, patient was noted to have an unstageable ulcer on the plantar aspect of the right foot. Neuro: Oriented X 3. No motor deficit. No sensory deficit. Moving all extremities. No slurred speech. CN 2 through 12 grossly intact Psych: calm, cooperative, normal affect Vital Signs: Vital Signs - 24 hr 06/07/25 19:30 06/07/25 21:47 Temperature 98.4 F 98.2 F Pulse Rate 94 81 Respiratory Rate 18 19 Blood Pressure 225/133 H 198/74 H Pulse Oximetry 93 96 Oxygen Delivery Method Room Air Room Air BMI result Body Mass Index 34.8 Course Course Course Narrative: This is a rapid medical exam performed by Mickey Jacobson NP: Additional HPI, ROS, PE not included below will be deferred to primary provider. Patient is a 54-year-old female with history of smoking, CAD, cardiomyopathy, DM, HLD, obesity, afib on Eliquis, CKD 3, s/p cardiac cath with stents 3 mos ago, HTN presenting with complaint of chest pain. States had been feeling better after she had stents placed. Associated nausea and vomiting today. BP in triage 225/133. Plan: EKG, labs, CXR Medications Administered Discontinued Medications Generic Name Dose Route Start Last Admin Trade Name Freq PRN Reason Stop Dose Admin Insulin Human Regular 5 unit 06/07/25 23:06 06/07/25 23:26 Insulin Regular, Human 100 Unit/Ml 10 Ml Vial IVPUSH 06/07/25 23:07 5 unit ONCE ONE Administration Iohexol 85 ml 06/07/25 23:41 06/07/25 23:42 Iohexol 350 Mg/Ml 100 Ml Infus..Btl IV 06/07/25 23:42 85 ml ONCE ONE Administration Ondansetron HCl 4 mg 06/07/25 23:05 06/07/25 23:26 Ondansetron Hcl 4 Mg/2 Ml Vial IVPUSH 06/07/25 23:06 4 mg ONCE ONE Administration Medical Decision Making Medical Decision Making [facility] Narrative: My interpretation of labs: Patient's white blood cell count 13.1, no significant abnormality in patient's electrolytes, glucose 314, BNP 800, troponin 16.5, baseline is less than 200. Chest x-ray shows a right pleural effusion. Is x-ray shows a small right pleural effusion. Minimal exertion vision does get short of breath. Overall, patient has pleural effusion, CHF, hyperglycemia and an old foot ulcer without osteomyelitis. I discussed the patient with Dr. Rubio patient being admitted Differential Diagnosis Differential Diagnoses: The differential diagnosis associated with the presentation includes (CHF, pleural effusion, SBO, unstageable foot ulcer, osteomyelitis) Admission/Observation Consideration of admission/observation: Escalation of care including admission/observation considered Consult Healthcare Provider Management of the patient was discussed with: Hospitalist Lab Data [facility] Lab Attestation statement: I reviewed the patient's lab results. 06/07/25 20:00 06/07/25 20:00 Labs: Lab Results 06/07/25 06/07/25 06/07/25 Range/Units 20:00 22:00 22:56 WBC 13.1 H (4.8-10.8) X10*3/uL RBC 5.26 D (4.20-5.50) X10*6/uL Hgb 14.7 D (12.0-16.0) g/dl Hct 44.5 D (37.0-47.0) % MCV 84.6 (80.0-98.0) fL MCH 27.9 (27.0-33.0) pg MCHC 33.0 (31.0-35.0) g/dl RDW 15.3 (11.0-16.0) % Plt Count 301 (160-400) X10*3/uL MPV 11.7 (9.4-12.3) fL Immature Gran % (Auto) 0.4 (0.0-0.4) % Neut % (Auto) 88.5 H (45-73) % Lymph % (Auto) 8.5 L (20-40) % [place] % (Auto) 1.6 L (2-11) % Eos % (Auto) 0.2 (0-4) % Baso % (Auto) 0.8 (0-2) % Lymph # (Auto) 1.1 L (1.2-4.9) X10*3/uL [place] # (Auto) 0.2 (0.1-1.2) X10*3/uL Eos # (Auto) 0.0 (0.0-0.4) X10*3/uL Baso # (Auto) 0.1 (0.0-0.2) X10*3/uL Abs Immat Gran (auto) 0.05 H (0.00-0.03) X10*3/uL Absolute Neuts (auto) 11.6 H (2.0-8.3) x10*3/uL Absolute Nucleated RBC 0.000 (0.0-0.012) X10*3/uL Nucleated RBC % (auto) 0.0 (0.0-0.2) /100WBC ESR 33 H (0-20) MM/HR PT 11.5 (10.9-12.4) SEC INR 1.0 (0.9-1.1) Sodium 142 (135-145) mmol/L Potassium 3.8 (3.3-5.1) mmol/L Chloride 110 H (96-108) mmol/L Carbon Dioxide 20 L (22-29) mmol/L Anion Gap 16 (12-20) BUN 21 H (9-16) mg/dL Creatinine 1.33 (0.5-1.4) mg/dL Estim Creat Clear Calc 50.0 Estimated GFR 41 POC Glucose (60-115) mg/dL Random Glucose 314 H (60-115) mg/dL Lactic Acid 0.9 (0.5-2.0) mmol/L Calcium 9.3 (8.4-10.2) mg/dL Magnesium 2.1 (1.6-2.6) mg/dL Total Bilirubin 0.4 (0.0-1.0) mg/dL AST 20 (5-31) U/L ALT 15 (0-31) U/L Alkaline Phosphatase 130 H (39-117) U/L Troponin I High Sens 16.5 D (<3.5-17.0) ng/L C-Reactive Protein 0.17 (< or = 0.50) mg/dL B-Natriuretic Peptide 800 H (<100) pg/mL Total Protein 6.9 (6.5-8.0) g/dL Albumin 3.7 (3.5-5.0) g/dL Urine Color Yellow Urine Appearance Clear Urine pH 6.5 (5.0-9.0) Ur Specific [place] >= 1.030 H (1.005-1.025) Urine Protein >=1000 (4+) H (Neg-Trace) mg/dL Urine Glucose (UA) >=1000 H (Negative) mg/dL Urine Ketones 40 (Negative) mg/dL Urine Blood Small (1+) H (Negative) Urine Nitrite Negative (Negative) Ur Leukocyte Esterase Negative (Negative) Urine RBC 11-20 H (0-2) /HPF Urine WBC 0-5 (0-5) /HPF Ur Squamous Epith Cells 3-5 (0-2) /HPF Urine Bacteria None Seen (None Seen) Hyaline Casts 3-5 (0-2) /LPF 06/08/25 Range/Units 00:08 WBC (4.8-10.8) X10*3/uL RBC (4.20-5.50) X10*6/uL Hgb (12.0-16.0) g/dl Hct (37.0-47.0) % MCV (80.0-98.0) fL MCH (27.0-33.0) pg MCHC (31.0-35.0) g/dl RDW (11.0-16.0) % Plt Count (160-400) X10*3/uL MPV (9.4-12.3) fL Immature Gran % (Auto) (0.0-0.4) % Neut % (Auto) (45-73) % Lymph % (Auto) (20-40) % [place] % (Auto) (2-11) % Eos % (Auto) (0-4) % Baso % (Auto) (0-2) % Lymph # (Auto) (1.2-4.9) X10*3/uL [place] # (Auto) (0.1-1.2) X10*3/uL Eos # (Auto) (0.0-0.4) X10*3/uL Baso # (Auto) (0.0-0.2) X10*3/uL Abs Immat Gran (auto) (0.00-0.03) X10*3/uL Absolute Neuts (auto) (2.0-8.3) x10*3/uL Absolute Nucleated RBC (0.0-0.012) X10*3/uL Nucleated RBC % (auto) (0.0-0.2) /100WBC ESR (0-20) MM/HR PT (10.9-12.4) SEC INR (0.9-1.1) Sodium (135-145) mmol/L Potassium (3.3-5.1) mmol/L Chloride (96-108) mmol/L Carbon Dioxide (22-29) mmol/L Anion Gap (12-20) BUN (9-16) mg/dL Creatinine (0.5-1.4) mg/dL Estim Creat Clear Calc Estimated GFR POC Glucose 229 H (60-115) mg/dL Random Glucose (60-115) mg/dL Lactic Acid (0.5-2.0) mmol/L Calcium (8.4-10.2) mg/dL Magnesium (1.6-2.6) mg/dL Total Bilirubin (0.0-1.0) mg/dL AST (5-31) U/L ALT (0-31) U/L Alkaline Phosphatase (39-117) U/L Troponin I High Sens (<3.5-17.0) ng/L C-Reactive Protein (< or = 0.50) mg/dL B-Natriuretic Peptide (<100) pg/mL Total Protein (6.5-8.0) g/dL Albumin (3.5-5.0) g/dL Urine Color Urine Appearance Urine pH (5.0-9.0) Ur Specific [place] (1.005-1.025) Urine Protein (Neg-Trace) mg/dL Urine Glucose (UA) (Negative) mg/dL Urine Ketones (Negative) mg/dL Urine Blood (Negative) Urine Nitrite (Negative) Ur Leukocyte Esterase (Negative) Urine RBC (0-2) /HPF Urine WBC (0-5) /HPF Ur Squamous Epith Cells (0-2) /HPF Urine Bacteria (None Seen) Hyaline Casts (0-2) /LPF ABG Data Attestation ABG: I personally reviewed and interpreted this ABG as follows: Independent Interpretation I performed an independent interpretation of an: EKG Interpretation: Interpretation of EKG: Atrial fibrillation, heart rate 81, no ST segment depression or elevation, no T-wave inversion, QTC 399 Critical Care Time Critical Care Time Critical Care Time: Yes Total Critical Care Time: 60 Attestation: I have personally provided critical care time. Time includes review of lab data, radiology results, discussion with consultants, and monitoring for potential decompensation. Intervention performed as documented. Discharge Plan Discharge Clinical Impression: CHF (congestive heart failure), Pleural effusion, Acute hyperglycemia, Diabetic foot ulcer Patient Disposition: Admitted As Inpatient Print Language: Mohawk
[2025-06-07 19:30] VITALS: BP 225/133; PULSE 94; RESP 18; TEMP 36.9; O2SAT 93; BMI 34.8
[2025-06-07 20:04] LABS: MANUAL DIFF FLAG NO
[2025-06-07 20:10] LABS: Hematocrit 44.5 % (37.0-47.0); Hemoglobin 14.7 g/dl (12.0-16.0); INTERNATIONAL NORM RATIO 1.0 (0.9-1.1); Imm Gran Abs Auto 0.05 X10*3/uL (0.00-0.03); Imm Gran Pct Auto 0.4 % (0.0-0.4); Lymphocytes Absolute Auto 1.1 X10*3/uL (1.2-4.9); Mean Corpuscular HGB Conc 33.0 g/dl (31.0-35.0); Mean Corpuscular Hemoglobin 27.9 pg (27.0-33.0); Mean Corpuscular Volume 84.6 fL (80.0-98.0); NRBC Abs Auto 0.000 X10*3/uL (0.0-0.012); NRBC Pct Auto 0.0 /100WBC (0.0-0.2); Platelet Count 301 X10*3/uL (160-400); Prothrombin Time 11.5 SEC (10.9-12.4); Red Blood Count 5.26 X10*6/uL (4.20-5.50); White Blood Count 13.1 X10*3/uL (4.8-10.8)
[2025-06-07 20:19] LABS: Alanine Aminotransferase 15 U/L (0-31); Albumin Level 3.7 g/dL (3.5-5.0); Alkaline Phosphatase 130 U/L (39-117); Anion Gap 16 (12-20); Aspartate Amino Transferase 20 U/L (5-31); Blood Urea Nitrogen 21 mg/dL (9-16); Calcium 9.3 mg/dL (8.4-10.2); Carbon Dioxide 20 mmol/L (22-29); Chloride 110 mmol/L (96-108); Creatinine Clr Calc Pharmacy 50.0; Estimated Glomerular Filt Rate 41; Magnesium 2.1 mg/dL (1.6-2.6); Potassium 3.8 mmol/L (3.3-5.1); Sodium 142 mmol/L (135-145); Total Protein 6.9 g/dL (6.5-8.0)
[2025-06-07 20:25] LABS: B Type Natriuretic Peptide 800 pg/mL (<100)
[2025-06-07 20:26] LABS: Troponin-I High Sensitivity 16.5 ng/L (<3.5-17.0)
--- OUTSIDE RECORDS SUMMARY | 2025-06-07 21:21 | XMS_ITS | Encounter Summary ---
Author Organization [facility] Address [address] [place] [id number] Phone Care Team Providers Care Butcher Head Name Role Phone Rancho Duarte MD Primary Care Provider [phone] Encounter Details Date Type Department Care Team (Late st Contact Info) Description 03/29/2020 Procedure Pass [facility] PERIOPERATIVE DEPT [address] [place] [id number] Social History Tobacco Use Types Packs/Day Years Used Date Smoking Tobacco: Never Assessed Comments Unknown Sex and Gender Information Value Date Recorded Sex Assigned at Not on file Legal Sex Female 4:05 PM EDT Gender Identity Not on file Sexual Orientation Not on file documented as of this encounter Plan of Treatment Not on file documented as of this encounter Visit Diagnoses Not on filedocumented in this encounter Additional Health Concerns Infection Onset Date Last Indicated Resolved Time CoV-Risk Comment:Per note documentation 03/31/2020 03/31/2020 0 6:05 AM EDT CoV-Exposed Comment:[facility] Infection Control Unit [id number] See 05.24.20 note for detail Exposed to COIVD on 05/21/20 = Enhanced Respiratory Isolation (ROB) until 06/04/20. Exposed patients: no roomates, ROB for two weeks incubation period following exposure. This status continued regardless of new COVID test results, and will auto- on 06/04/20. 05/21/2020 05/24/2020 06/04/2020 1:24 A M EDT documented as of this encounter Care Teams Butcher Head Relationship Specialty Start Date End Date Rancho Duarte MD [address] [place] [address] [place] [id number] PCP - General Internal Medicine 03/27/20 documented as of this encounter Additional Source Comments The information contained in this document represents components of the legal health record. It is not the complete legal health record.[facility]
[2025-06-07 21:47] VITALS: BP 198/74; PULSE 81; RESP 19; TEMP 36.8; O2SAT 96
[2025-06-07 23:02] LABS: Appearance Urine Clear; Glucose Urine UA >=1000 mg/dL (Negative); PH 6.5 (5.0-9.0); Specific Gravity - Urine >= 1.030 (1.005-1.025); UMIC TRIGGER UA YES
[2025-06-07] MEDS: iohexoL 350 MG/ML 100 ML INFUS..BTL 85 ML IV (23:42)
[2025-06-08] VITALS (13 sets, daily range): BP systolic 145–179; BP diastolic 60–89; PULSE 59–90; RESP 14–20; TEMP 36.5–37; O2SAT 83–98; BMI 35.7; BMI 35.6
[2025-06-08 00:12] LABS: Glucose, Whole Blood 229 mg/dL (60-115)
--- NOTE | 2025-06-08 01:43 | PM.IMHP ---
History of Present Illness Date of Service: 06/08/25 Attending physician on admission: Garfield Rubio Chief Complaint: chest pain Patient is a 54-year-old female with past medical history of IDDM, HFrEF 35-40%, mild aortic stenosis and regurgitation, HTN, HLD, PCI X2 April 2025 [facility], obesity, nephrolithiasis, GERD, renal abscess, rebuilt rectum s/p boil/skin infection, CKD III, AFIB on eliquis, presents to the emergency room for evaluation of chest pain associated with vomiting that started earlier in the day. Patient was worried because she had stents placed 2 months prior at [facility]. Patient currently states her chest pain has completely resolved and she feels 10 times better than she did when she got here. Patient currently denies any chest pain, abdominal pain, nausea or vomiting. Patient is not having any shortness of breath but is wearing O2 nasal cannula and sats are 93%. Patient also experienced hypertensive urgency with systolic of 225 upon arrival in the ED. Since then, blood pressure has improved greatly. Workup in the ED included CT of the abdomen and pelvis which noted cardiomegaly with small pericardial effusion. X-ray shows a small right pleural effusion. Patient noted to be getting very short of breath with minimal movement while in the ED. EKG notes AFib rate 81. Patient received Lasix 40 IV in the ED. Incidentally it was noted that patient has a very old ulcer of the right foot and patient stated this occurred 7 months prior as she was walking with sneakers on and stepped on a nail. Patient did not review this with her PCP or any other provider in the outpatient setting. Patient states she has no idea when her last tetanus shot was as well. And even though patient has diabetes she does not follow with a ocular care technologist regularly. Patient can weight bear weight on the affected foot and can wear appropriate shoes. The area of concern involves the lateral area of the plantar aspect of the right foot and the wound is considered unstageable. There is no redness, drainage or pain with palpation of the affected area. Review of Systems Review of Systems: Patient currently denies any chest pain or chest pressure. Patient is still on oxygen but denies any shortness of breath especially at rest. Patient denies any abdominal pain, nausea, vomiting, constipation but does have intermittent diarrhea which is considered chronic. Patient does follow with a GI specialist for this problem. Patient denies any recent falls or injury. Yes all other systems are reviewed and are negative [facility] Medical History Patellofemoral arthritis of left knee Primary osteoarthritis of hips, bilateral Smoker Essential hypertension Persistent atrial fibrillation Ischemic cardiomyopathy Mixed hyperlipidemia Chronic kidney disease (CKD), stage III (moderate) Contraindication to percutaneous coronary intervention (PCI) PAF (paroxysmal atrial fibrillation) 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 Myocardial infarction COVID-19 vaccine series completed Nephrolithiasis Type 2 diabetes mellitus with morbid obesity Obesity (BMI 30-39.9) Depression Vitamin D deficiency GERD without esophagitis Coronary artery disease Benign essential hypertension Pure hypercholesterolemia Intertrigo 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 Necrotizing fasciitis Functional capacity: independent ambulation (Patient does not use a walker as it is locked away in her garage) Patient : No Family History Father Alzheimer's dementia Surgical History History of cardiac catheterization History of surgery History of surgery Hx of cystoscopy History of breast lump/mass excision (~03/2017) History of heart artery stent (~09/2015) History of arthroscopy of left knee (~12/2011) Social History Household Members: None Household Members Other:: Roommate Housing: House Do you presently have visiting nurse or other home services: No Alcohol intake: former Patient Tobacco Use Status: Current everyday Tobacco user Tobacco use type: Cigarette Cigarette Packs Per Day: 0.5 Cigarettes Per Day: 5 Years Smoked: 30 +/- Smoked in Last 30 Days: Yes e-Cigarette/Vaping Use: Former Use Second Hand Smoke Exposure: Yes Use of substances other than those prescribed or required for medical reasons: Yes Substance Use Type: Marijuana Advance Directives: Yes Advance Directives Information Provided: Yes Advance Directives on File: No Advance Directives Date on File: 07/23/22 Patient : No service: No Current occupational status: disabled Cognitive needs: No Hearing needs: No Vision needs: Yes Ebola Risk: Travel/Contact With Anyone From Affected Area/s: No Has Patient Experienced Ebola Symptoms: No Meds Allergies Allergy/AdvReac Type Severity Reaction Status Date / Time No Known Allergies Allergy Verified 06/07/25 19:30 Active Medications: Current Medications Acetaminophen (Acetaminophen 325 Mg Tablet) 650 mg PO Q6H PRN PRN Reason: Pain, Mild 1-3,fever,headache Albuterol/Ipratropium (Albuterol/Iprat 2.5/0.5mg 3 Ml Ampul.Neb) 3 ml INHALE Q4H PRN PRN Reason: Shortness of Breath/Wheezing Calcium Carbonate (Calcium Carbonate 750 Mg Tab.Chew) 750 mg PO Q4H PRN PRN Reason: Heartburn Magnesium Hydroxide (Milk Of Magnesia 30 Ml Oral.Susp) 30 ml PO DAILY PRN PRN Reason: Constipation Melatonin (Melatonin 3 Mg Tablet) 6 mg PO BEDTIME PRN PRN Reason: Insomnia Ondansetron HCl (Ondansetron Hcl 4 Mg/2 Ml Vial) 4 mg IVPUSH Q8H PRN PRN Reason: Nausea and Vomiting Polyethylene Glycol (Polyethylene Glycol 3350 17 Gm Powd.Pack) 17 gm PO DAILY PRN PRN Reason: Constipation Senna (Sennosides 8.6 Mg Tablet) 17.2 mg PO BEDTIME DENNIS Sodium Chloride (0.9 % Sodium Chloride Flush 3 Ml Syringe) 3 ml IVFLUSH QSHIFT DENNIS Home Medications ?Medication ?Instructions ?Recorded ?Confirmed ?Last Taken ?Type melatonin 3 mg tablet 3 mg PO BEDTIME 03/17/21 03/29/25 09/07/22 History multivitamin with minerals-ferrous 1 tab PO DAILY 03/17/21 03/29/25 09/07/22 History sulfate 4.5 mg iron tablet (One Daily Multivitamins with Minerals) gabapentin 100 mg capsule 300 mg PO TID 01/05/25 03/29/25 Unknown History Physical Exam Vital Signs and Narrative: Vital Signs: Last Vital Signs Temp 98.4 F 06/08/25 01:29 Pulse 81 06/08/25 01:29 Resp 14 06/08/25 01:29 BP 147/60 H 06/08/25 01:29 Pulse Ox 91 L 06/08/25 01:30 O2 Del Method Nasal Cannula 06/08/25 01:30 O2 Flow Rate 4 06/08/25 01:30 BMI result Body Mass Index 34.8 Alert and orientated X3, able to give good history. Neuro: CN II-X11 intact, no deficits, visual acuity intact EYES: PERRLA, EOM intact, sclerae nonicteric, conjunctiva pink ENT: hearing intact, no issues with swallowing, uvula midline, lips moist, nares patent no epistaxis Cardiac: Irregular rhythm, harsh systolic murmur, no JVD, no edema in Lower ext Pulmonary: lungs diminished bilaterally Abdominal: BS active in all 4 quadrants, no guarding, tenderness, rebounding MSK: strength 5/5 upper and lower extremities : no CVA tenderness no bladder distension Extremities: no edema in lower extremities, PT and DP pulses palpable +2 Psych: mood stable, judgement and insight fair Skin: Unstageable hard tissue accumulation plantar aspect of the lateral right foot with no redness, drainage and patient is able to bear weight on the affected area. Results Labs 06/07/25 20:00 06/07/25 20:00 Labs: Laboratory Results - last 24 hr 06/07/25 06/07/25 06/07/25 20:00 22:00 22:56 MCV 84.6 MCH 27.9 MCHC 33.0 RDW 15.3 Plt Count 301 MPV 11.7 Immature Gran % (Auto) 0.4 Neut % (Auto) 88.5 H Lymph % (Auto) 8.5 L Falls % (Auto) 1.6 L Eos % (Auto) 0.2 Baso % (Auto) 0.8 Lymph # (Auto) 1.1 L Falls # (Auto) 0.2 Eos # (Auto) 0.0 Baso # (Auto) 0.1 Abs Immat Gran (auto) 0.05 H Absolute Neuts (auto) 11.6 H Absolute Nucleated RBC 0.000 Nucleated RBC % (auto) 0.0 ESR 33 H PT 11.5 INR 1.0 Anion Gap 16 Estim Creat Clear Calc 50.0 Estimated GFR 41 POC Glucose Random Glucose 314 H Lactic Acid 0.9 Calcium 9.3 Magnesium 2.1 Total Bilirubin 0.4 AST 20 ALT 15 Alkaline Phosphatase 130 H C-Reactive Protein 0.17 B-Natriuretic Peptide 800 H Total Protein 6.9 Albumin 3.7 Urine Color Yellow Urine Appearance Clear Urine pH 6.5 Ur Specific [place] >= 1.030 H Urine Protein >=1000 (4+) H Urine Glucose (UA) >=1000 H Urine Ketones 40 Urine Blood Small (1+) H Urine Nitrite Negative Ur Leukocyte Esterase Negative Urine RBC 11-20 H Urine WBC 0-5 Ur Squamous Epith Cells 3-5 Urine Bacteria None Seen Hyaline Casts 3-5 06/08/25 00:08 MCV MCH MCHC RDW Plt Count MPV Immature Gran % (Auto) Neut % (Auto) Lymph % (Auto) Falls % (Auto) Eos % (Auto) Baso % (Auto) Lymph # (Auto) Falls # (Auto) Eos # (Auto) Baso # (Auto) Abs Immat Gran (auto) Absolute Neuts (auto) Absolute Nucleated RBC Nucleated RBC % (auto) ESR PT INR Anion Gap Estim Creat Clear Calc Estimated GFR POC Glucose 229 H Random Glucose Lactic Acid Calcium Magnesium Total Bilirubin AST ALT Alkaline Phosphatase C-Reactive Protein B-Natriuretic Peptide Total Protein Albumin Urine Color Urine Appearance Urine pH Ur Specific [place] Urine Protein Urine Glucose (UA) Urine Ketones Urine Blood Urine Nitrite Ur Leukocyte Esterase Urine RBC Urine WBC Ur Squamous Epith Cells Urine Bacteria Hyaline Casts ECG Attestation: I personally reviewed and interpreted this ECG as follows: (AFib rate 81) Prior ECG tracings: available for review Imaging Radiologist's Impressions: CT ABD PELVIS IMPRESSION: 1. No evidence of small-bowel obstruction. 2. Increased intramural fat in the right colon, possibly sequela of inflammatory bowel disease. Please correlate clinically. 3. Indeterminate bilateral adrenal nodules. Routine nonemergent follow-up adrenal mass protocol CT may be helpful for further characterization if clinically indicated. 4. Enlarged heart with mild pericardial effusion. 5. Ancillary CT findings detailed above. Assessment and Plan (1) Chest pain: Start date: 06/08/25 Qualifiers: Chest pain type: other chest pain Qualified Code(s): R07.89 - Other chest pain Status: Acute Plan Patient is a 54-year-old female with past medical history of IDDM, HFrEF 35-40%, mild aortic stenosis and regurgitation, HTN, HLD, PCI X2 April 2025 [facility], obesity, nephrolithiasis, GERD, renal abscess, rebuilt rectum s/p boil/skin infection, CKD III, AFIB on eliquis, presents to the emergency room for evaluation of chest pain associated with vomiting that started earlier in the day. Patient became concerned because she had stents placed approximately 2 months prior at [facility]. Since being seen in the ED, patient states chest pain is currently resolved. Due to abnormal labs, and hypertensive urgency on arrival, patient is being admitted Chest pain History of PCI x2 approximately 3 months prior at [facility], patient currently on Eliquis and Plavix Currently resolved May be related to reflux Troponin negative Continue telemetry CHF exacerbation/ HFrEF BNP 800 Lasix 40 IV X1 Oxygen via NC, wean as tolerated - no hypoxia and pt does not use O2 at home Daily wts, Measure I/Os, low Na diet Echo in the a.m., cardiomegaly and small pericardial effusion noted on CT scan Small right pleural effusion noted on chest x-ray Cardiology consulted Patient normally on entresto, Coreg, Bumex and digoxin -Dig level requested HTN/ urgency on arrival Continue amlodipine Low-sodium diet Hydralazine p.r.n. for systolic greater than 160 Unstageable ulcer right foot Wound care consult ordered Right foot x-ray requested Injury occurred 7 months prior, patient wearing sneakers and stepped on contaminated nail Patient did not receive tetanus nor seek care from medical provider Patient does not routinely follow with a ocular care technologist IDDM SSI DIabetic diet Continue home medication regimen once med rec is completed Patient does not currently take GLP 1 medication Chronic kidney disease stage 3 Renal function currently at baseline Avoid hypotension and nephrotoxic meds GERD Protonix DVT prophylaxis: Eliquis Med rec pending Full Code status Quality Stroke Does the patient have a stroke diagnosis?: No Reason for No Anti-thrombotic by Day Two: N/A - Med Ordered VTE Prior VTE?: No VTE Risk Level:: Medical - moderate - high VTE Device Contraindication: N/A - Device Ordered VTE Drug Contraindication: N/A - Med Ordered
[2025-06-08] MEDS: Furosemide 40 MG/4 ML VIAL IVPUSH ×2 (02:26→20:03)
[2025-06-08 06:26] LABS: MANUAL DIFF FLAG NO
[2025-06-08 06:28] LABS: Hematocrit 43.3 % (37.0-47.0); Hemoglobin 13.9 g/dl (12.0-16.0); Imm Gran Abs Auto 0.07 X10*3/uL (0.00-0.03); Imm Gran Pct Auto 0.6 % (0.0-0.4); Lymphocytes Absolute Auto 1.2 X10*3/uL (1.2-4.9); Mean Corpuscular HGB Conc 32.1 g/dl (31.0-35.0); Mean Corpuscular Hemoglobin 27.8 pg (27.0-33.0); Mean Corpuscular Volume 86.6 fL (80.0-98.0); NRBC Abs Auto 0.000 X10*3/uL (0.0-0.012); NRBC Pct Auto 0.0 /100WBC (0.0-0.2); Platelet Count 277 X10*3/uL (160-400); Red Blood Count 5.00 X10*6/uL (4.20-5.50); White Blood Count 11.7 X10*3/uL (4.8-10.8)
[2025-06-08 06:49] LABS: Digoxin 0.9 ng/mL (0.8-2.0)
[2025-06-08 06:56] LABS: Alanine Aminotransferase 13 U/L (0-31); Albumin Level 3.3 g/dL (3.5-5.0); Alkaline Phosphatase 122 U/L (39-117); Anion Gap 17 (12-20); Aspartate Amino Transferase 17 U/L (5-31); Blood Urea Nitrogen 22 mg/dL (9-16); Calcium 8.7 mg/dL (8.4-10.2); Carbon Dioxide 20 mmol/L (22-29); Chloride 108 mmol/L (96-108); Creatinine Clr Calc Pharmacy 47.9; Estimated Glomerular Filt Rate 39; Potassium 3.0 mmol/L (3.3-5.1); Sodium 142 mmol/L (135-145); Total Protein 6.3 g/dL (6.5-8.0)
[2025-06-08 06:57] LABS: Troponin-I High Sensitivity 34.9 ng/L (<3.5-17.0)
--- NOTE | 2025-06-08 07:00 | CA_ITS ---
Transthoracic Echocardiogram Patient (Last, First, Middle): Greer Akins A Gender: Female Date of : 1970 Age: 54 Procedure Date: 06/08/2025 Procedure Type: Transthoracic Echocardiogram Location: ER Height: 160.02 cm Weight: 88.91 kg BSA: 1.92 m2 Heart Rate: 68 bpm BP: 162 / 73 mmHg Family Practice Nurse Practitioner: CLEMENTINE Referring MD: Dinora Bradford [facility] Symptoms: cardiomegaly elevated BNP Study Quality: Adequate ECG Rhythm: Atrial Fibrillation Conclusions: - The left ventricular systolic function is mildly decreased. The visually estimated ejection fraction is between 40-45%. - There is evidence of regional wall motion abnormalities. - Evidence suggests grade II (moderate) diastolic dysfunction. - No obvious valvular pathology seen on this study. Findings Left Ventricle Normal left ventricular cavity size. There is mildly increased left ventricular wall thickness. The left ventricular systolic function is mildly decreased. The visually estimated ejection fraction is between 40-45%. There is evidence of regional wall motion abnormalities. Evidence suggests grade II (moderate) diastolic dysfunction. Wall Motion Rest Echo Findings The mid inferior segment is hypokinetic. The apical inferior, basal inferior, apical septum, mid inferoseptal, and mid anteroseptal segments are akinetic. Right Ventricle Normal right ventricular cavity size and systolic function. Atria The left atrium is moderately dilated. The right atrium is normal in size. Aortic Valve There is a normal trileaflet aortic valve. There is no aortic valve stenosis. There is mild aortic valve regurgitation. Mitral Valve There is mild mitral annular calcification. There is trace mitral valve regurgitation. There is no mitral valve stenosis. Pulmonic Valve The pulmonic valve is likely normal. Tricuspid Valve Normal tricuspid valve structure. There is trace tricuspid valve regurgitation. There is no evidence of pulmonary hypertension. Great Vessels The asc aorta and aortic arch are normal in size. Venous The inferior vena cava is mildly dilated and collapses less than 50% with inspiration. Pericardium/Pleural There is a trivial pericardial effusion. Prior Study Comparison No significant change compared to prior study dated: 11/20/2024. Recommendations, Care & Conclusions No obvious valvular pathology seen on this study. Measurements 2D Linear Measurements IVSd: 1.24 0.6-0.9/0.6-1.0 cm LVIDd: 5.33 3.9-5.3/4.2-5.9 cm LVIDd Index: 2.78 2.4-3.2/2.2-3.1 cm/m2 LVIDs: 3.84 2.0-3.6 cm LVPWd: 1.29 0.7-1.1 cm LA Diam: 4.60 2.7-3.8/3.0-4.0 cm LAIDs Index: 2.40 1.5-2.3 cm/m2 LV Mass: 347.53 67-162/88-224 g LV Mass Index: 181.01 43-95/49-115 g/m2 LVOT Diam: 2.10 3.0+(-)1.3 cm 2D Systolic Function EF 4C: 47.00 >55% EF 2C: 51.90 >55% EF BiP: 48.10 >55% Mitral Valve MV Pk E: 1.44 MV PK A: 0.78 MV Decel Time: 221.00 E/A: 1.80 E'Lateral: 6.64 E'Medial: 4.79 E/E' Med: 30.10 E/E' Lat: 21.70 PHT: 65.00 MVA PHT: 3.38 Decel Mason: 6.54 Aortic Valve AoV Pk Leland: 2.11 AoV Mn Leland: 1.31 AoV VTI: 0.38 AoV Pk Grad: 18.00 Aov Mn Grad: 8.00 DAISY Cont.VTI: 2.58 AI Pk Leland: 4.24 AI Mason: 1.90 LVOT LVOT Pk Leland: 1.57 LVOT Mn Leland: 0.98 LVOT VTI: 0.29 LVOT Pk Grad: 10.00 LVOT Mn Grad: 4.00 LVOT Diam: 2.10 LVOT Area: 3.46 Diastolic Function MV Pk E: 1.44 MV Pk A: 0.78 E/A: 1.80 E'Medial: 4.79 E/E' Med: 30.10 E' Laterial: 6.64 E/E' Lat: 21.70 Right Ventricle TAPSE (mm): 16.80 TVS' Leland: 12.80 Tricuspid Valve TR Pk Leland: 2.24 TR Pk Grad: 20.00 RA Press: 15.00 RVSP: 35.00 Great Vessels Aorta Sinus of Valsalva: 3.40 2.0-3.5 cm Ao Asc: 3.60 2.1-3.4 cm Ao Arch: 2.70 Pulmonary Valve PV Pk Leland: 1.00 Peak PV Grad: 4.00 Updated in Other Vendor System with Status of Final Eleuterio Colvin MD electronically signed on 06/08/2025 12:15:59 PM with status of Final
[2025-06-08 07:34] LABS: Glucose, Whole Blood 241 mg/dL (60-115)
--- NOTE | 2025-06-08 09:02 | PHA.MEDREC ---
Addendum entered by Cruz Hanson, PharmD 06/08/25 09:14: reviewed Original Note: Pharmacy Consult ? Medication Reconciliation Pharmacy has completed the medication reconciliation. Spoke with pt and she confirmed her medications. Per pt: she takes her Vitamin D2 1250mg tab once a week on ; last took it 06/02, pt now taking her Gababpentin 100mg cap 3 caps (300mg) BID now instead of TID and she takes her Hydroxyzine 25mg tab BI, but if she absolutely needs too she will take another one in the afternoon if she starts getting anxious.
--- NOTE | 2025-06-08 10:33 | P.CONCA_ITS ---
History of Present Illness History of Present Illness Date of Service: 06/08/25 Chief complaint: chest pain Narrative: This is a cardiology consultation regarding some chest pain. Last seen by me in the clinic in 2022 and more recently by our nurse practitioner. Per prior notes, LAD stent for STEMI in 2014. Known ischemic cardiomyopathy. More recently, underwent another catheterization because of shortness of breath and she underwent PCI to RCA. After that, she states that she actually felt much better and was doing okay. This time, she apparently had discomfort in the abdomen and just about the same time, she also felt some nonspecific chest discomfort and then she started throwing up watery stuff. That led to ER visit. Then she underwent evaluation and per notes, thought to be possibly having some congestive heart failure and that led to the admission. Currently, she states she is actually feeling good and back to normal self. She had received a dose of IV Lasix. Review of Systems 2 Review of Systems: Yes all other systems are reviewed and are negative Constitutional: Constitutional: Reports as per HPI and Reports no additional constitutional complaints Eyes: Eyes: Reports as per HPI and Denies no additional eye complaints ENT: Denies system reviewed and no additional complaints, except as documented and Reports as per HPI Cardiovascular: Cardiovascular: Reports as per HPI, Reports no additional cardiovascular complaints, Denies acrocyanosis, Denies cool extremities, Reports chest pain, Denies leg edema, Denies lightheadedness, Denies palpitations and Denies dyspnea Respiratory: Respiratory: Reports as per HPI, Denies no additional respiratory complaints and Denies dyspnea Gastrointestinal: Gastrointestinal: Reports as per HPI, Denies no additional gastrointestinal complaints and Reports abdominal pain Genitourinary: Genitourinary: Reports as per HPI Musculoskeletal: Musculoskeletal: Reports no additional musculoskeletal complaints and Reports as per HPI Integumentary/Breasts: Skin/Breast: Reports system reviewed and no additional complaints, except as docu Neurologic: Reports system reviewed and no additional complaints, except as documented and Reports as per HPI Psychiatric: Psychiatric: Reports no additional psychiatric complaints and Reports as per HPI Endocrine: Endocrine: Reports no additional endocrine complaints, Reports as per HPI and Denies palpitations Hematologic/Lymphatic: Hematologic/Lymphatic: Reports no additional hematologic/lymphatic complaints and Reports as per HPI Allergic/Immunologic: Allergic/Immunologic: Reports no additional allergic/immunologic complaints and Reports as per HPI [facility] Past Medical History Medical History Patellofemoral arthritis of left knee Primary osteoarthritis of hips, bilateral Smoker Essential hypertension Persistent atrial fibrillation Ischemic cardiomyopathy Mixed hyperlipidemia Chronic kidney disease (CKD), stage III (moderate) Contraindication to percutaneous coronary intervention (PCI) PAF (paroxysmal atrial fibrillation) 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 Myocardial infarction COVID-19 vaccine series completed Nephrolithiasis Type 2 diabetes mellitus with morbid obesity Obesity (BMI 30-39.9) Depression Vitamin D deficiency GERD without esophagitis Coronary artery disease Benign essential hypertension Pure hypercholesterolemia Intertrigo 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 Necrotizing fasciitis Family History Family History Father Alzheimer's dementia Surgical History Surgical History History of cardiac catheterization History of surgery History of surgery Hx of cystoscopy History of breast lump/mass excision (~03/2017) History of heart artery stent (~09/2015) History of arthroscopy of left knee (~12/2011) Social History Social History Household Members: None Household Members Other:: Roommate Housing: House Do you presently have visiting nurse or other home services: No Alcohol intake: former Patient Tobacco Use Status: Tobacco use Unknown Tobacco use type: Cigarette Cigarette Packs Per Day: 0.5 Cigarettes Per Day: 5 Years Smoked: 30 +/- Smoked in Last 30 Days: Yes e-Cigarette/Vaping Use: Former Use Second Hand Smoke Exposure: Yes Use of substances other than those prescribed or required for medical reasons: Yes Substance Use Type: Marijuana Advance Directives: Yes Advance Directives Information Provided: Yes Advance Directives on File: No Advance Directives Date on File: 07/23/22 Patient : No service: No Current occupational status: disabled Cognitive needs: No Hearing needs: No Vision needs: Yes Travel History Ebola Risk: Travel/Contact With Anyone From Affected Area/s: No Has Patient Experienced Ebola Symptoms: No Meds Allergies Allergy/AdvReac Type Severity Reaction Status Date / Time No Known Allergies Allergy Verified 06/07/25 19:30 Active Medications: Current Medications Acetaminophen (Acetaminophen 325 Mg Tablet) 650 mg PO Q6H PRN PRN Reason: Pain, Mild 1-3,fever,headache Albuterol/Ipratropium (Albuterol/Iprat 2.5/0.5mg 3 Ml Ampul.Neb) 3 ml INHALE Q4H PRN PRN Reason: Shortness of Breath/Wheezing Calcium Carbonate (Calcium Carbonate 750 Mg Tab.Chew) 750 mg PO Q4H PRN PRN Reason: Heartburn Dextrose (Dextrose 50 % 25 Gm/50 Ml Syringe) 25 gm IVPUSH Q15M PRN; Protocol PRN Reason: per Hypoglycemia Standing Ord. Glucose (Glucose Gel 15 Gm Gel..Gram.) 15 gm PO Q15M PRN; Protocol PRN Reason: per Hypoglycemia Standing Ord. Hydralazine HCl (Hydralazine Hcl 20 Mg/Ml Vial) 10 mg IVPUSH Q6H PRN; Protocol PRN Reason: SBP > 160 Insulin Human Lispro (Insulin Lispro 100 Unit/Ml 3 Ml Vial) 0 unit SUBCUT [facility]; Protocol Last Admin: 06/08/25 07:45 Dose: 4 unit Magnesium Hydroxide (Milk Of Magnesia 30 Ml Oral.Susp) 30 ml PO DAILY PRN PRN Reason: Constipation Melatonin (Melatonin 3 Mg Tablet) 6 mg PO BEDTIME PRN PRN Reason: Insomnia Ondansetron HCl (Ondansetron Hcl 4 Mg/2 Ml Vial) 4 mg IVPUSH Q8H PRN PRN Reason: Nausea and Vomiting Pantoprazole Sodium (Pantoprazole Sodium 40 Mg/10 Ml Vial) 40 mg IVPUSH DAILY@0630 [facility] Last Admin: 06/08/25 05:46 Dose: 40 mg Polyethylene Glycol (Polyethylene Glycol 3350 17 Gm Powd.Pack) 17 gm PO DAILY PRN PRN Reason: Constipation Senna (Sennosides 8.6 Mg Tablet) 17.2 mg PO BEDTIME [facility] Sodium Chloride (0.9 % Sodium Chloride Flush 3 Ml Syringe) [facility] Last Admin: 06/08/25 07:22 Dose: Not Given Home Medications ?Medication ?Instructions ?Recorded ?Confirmed ?Last Taken ?Type melatonin 3 mg tablet 3 mg PO BEDTIME 03/17/2106/2506/07/25 History multivitamin with minerals-ferrous 1 tab PO DAILY 03/0106/08/25 06/07/25 History sulfate 4.5 mg iron tablet (One Daily Multivitamins with Minerals) gabapentin 100 mg capsule 300 mg PO BID 01/05/2506/0806/07/25 History acetaminophen 500 mg tablet 1,000 mg PO Q6H PRN Headac he/Pain 06/08/25 06/08/25 Unknown History ergocalciferol (vitamin D2) 1,250 1,250 mcg PO SA 06/2506/08/25 06/02/25 History mcg (50,000 unit) capsule (Vitamin D2) hydroxyzine pamoate 25 mg capsule 25 mg PO BID 5 06/08/25 06/07/25 History hydroxyzine pamoate 25 mg capsule 25 mg PO DAILY@1200 PRN Anxiety 06/08/25 06/08/25 Unknown History insulin NPH isoph U-100 human 100 15 unit subcut DAILY 06/08/25 06/08/25 06/07/25 History unit/mL (3 mL) subcutaneous pen (Novolin N FlexPen) pantoprazole 40 mg tablet,delayed 40 mg PO DAILY@0630 06/08/25 06/08/25 06/07/25 History release sertraline 25 mg tablet 25 mg PO DAILY 06/08/2506/2506/07/25 History Physical Exam 2 Vital Signs: Vital Signs: Last Vital Signs Temp 98.2 F 06/08/25 05:59 Pulse 76 06/08/25 05:59 Resp 20 06/08/25 05:59 BP 162/73 H 06/08/25 05:59 Pulse Ox 95 06/08/25 05:59 O2 Del Method Nasal Cannula 06/08/25 05:59 O2 Flow Rate 4 06/08/25 05:59 BMI result Body Mass Index 34.8 Const: General: comfortable and no acute distress O rientation/consciousness: patient oriented x3 HEENT: Other: Unremarkable Head: Yes normal to inspection Neck: Neck: Yes normal visual inspection Chest: Chest palpation & inspection: normal inspection of the chest Resp: Auscultation: wheezes and diminished lung sounds Cardio: Palpation: normal PMI Heart sounds: S1 normal heart sound present, S2 normal heart sound present, no gallops, no murmurs and no rubs GI: Palpation (GI): Soft to palpation Back/Spine/Pelvis: Other: unremarkable Skin: General skin exam: no rashes or lesions noted Neuro: General: patient oriented x3 Extrem: Other: 1-2+ edema General: Yes normal to inspection Psych: Mental Status: mental status grossly normal Objective Labs and Meds 06/08/25 05:48 06/08/25 05:48 Lab results: Laboratory Results - last 24 hr 06/07/25 06/07/25 06/07/25 20:00 22:00 22:56 WBC 13.1 H RBC 5.26 D Hgb 14.7 D Hct 44.5 D MCV 84.6 MCH 27.9 MCHC 33.0 RDW 15.3 Plt Count 301 MPV 11.7 Immature Gran % (Auto) 0.4 Neut % (Auto) 88.5 H Lymph % (Auto) 8.5 L [place] % (Auto) 1.6 L Eos % (Auto) 0.2 Baso % (Auto) 0.8 Lymph # (Auto) 1.1 L [place] # (Auto) 0.2 Eos # (Auto) 0.0 Baso # (Auto) 0.1 Abs Immat Gran (auto) 0.05 H Absolute Neuts (auto) 11.6 H Absolute Nucleated RBC 0.000 Nucleated RBC % (auto) 0.0 ESR 33 H PT 11.5 INR 1.0 Sodium 142 Potassium 3.8 Chloride 110 H Carbon Dioxide 20 L Anion Gap 16 BUN 21 H Creatinine 1.33 Estim Creat Clear Calc 50.0 Estimated GFR 41 POC Glucose Random Glucose 314 H Lactic Acid 0.9 Calcium 9.3 Magnesium 2.1 Total Bilirubin 0.4 AST 20 ALT 15 Alkaline Phosphatase 130 H Troponin I High Sens 16.5 D C-Reactive Protein 0.17 B-Natriuretic Peptide 800 H Total Protein 6.9 Albumin 3.7 Urine Color Yellow Urine Appearance Clear Urine pH 6.5 Ur Specific [place] >= 1.030 H Urine Protein >=1000 (4+) H Urine Glucose (UA) >=1000 H Urine Ketones 40 Urine Blood Small (1+) H Urine Nitrite Negative Ur Leukocyte Esterase Negative Urine RBC 11-20 H Urine WBC 0-5 Ur Squamous Epith Cells 3-5 Urine Bacteria None Seen Hyaline Casts 3-5 Digoxin 06/08/25 06/08/25 06/08/25 00:08 05:48 07:31 WBC 11.7 H RBC 5.00 Hgb 13.9 Hct 43.3 MCV 86.6 MCH 27.8 MCHC 32.1 RDW 15.5 Plt Count 277 MPV 11.4 Immature Gran % (Auto) 0.6 H Neut % (Auto) 85.1 H Lymph % (Auto) 10.1 L [place] % (Auto) 3.3 Eos % (Auto) 0.1 Baso % (Auto) 0.8 Lymph # (Auto) 1.2 [place] # (Auto) 0.4 Eos # (Auto) 0.0 Baso # (Auto) 0.1 Abs Immat Gran (auto) 0.07 H Absolute Neuts (auto) 10.0 H Absolute Nucleated RBC 0.000 Nucleated RBC % (auto) 0.0 ESR PT INR Sodium 142 Potassium 3.0 L D Chloride 108 Carbon Dioxide 20 L Anion Gap 17 BUN 22 H Creatinine 1.39 Estim Creat Clear Calc 47.9 Estimated GFR 39 POC Glucose 229 H 241 H Random Glucose 277 H Lactic Acid Calcium 8.7 D Magnesium Total Bilirubin 0.3 AST 17 ALT 13 Alkaline Phosphatase 122 H Troponin I High Sens 34.9 H D C-Reactive Protein B-Natriuretic Peptide Total Protein 6.3 L Albumin 3.3 L Urine Color Urine Appearance Urine pH Ur Specific [place] Urine Protein Urine Glucose (UA) Urine Ketones Urine Blood Urine Nitrite Ur Leukocyte Esterase Urine RBC Urine WBC Ur Squamous Epith Cells Urine Bacteria Hyaline Casts Digoxin 0.9 ECG Interpretation: EKG shows atrial fibrillation at a rate of 81/Min. Old anteroseptal infarct. Cannot exclude old inferior infarct. Assessment and Plan (1) Acute on chronic combined systolic and diastolic CHF (congestive heart failure): Status: Acute (2) Elevated troponin: Status: Acute (3) Ischemic cardiomyopathy: Status: Acute (4) Persistent atrial fibrillation: Status: Acute (5) Coronary artery disease: Qualifiers: Coronary Disease-Associated Artery/Lesion type: resighini artery [place] vs. transplanted heart: resighini heart Associated angina: without angina Q ualified Code(s): I25.10 - Atherosclerotic heart disease of resighini coronary artery without angina pectoris Status: Acute Plan Per last echocardiogram in November, LVEF is 35-40%. LAD wall motion abnormality. Mild aortic stenosis/regurgitation. Currently, cardiac BNP is 800. Higher than before. Elevated troponin level but borderline. Could be just from some congestive heart failure/demand. Chest x-ray shows stable chronic interstitial fibrosis pattern. Small right pleural effusion, new. No acute infiltrates. Overall, probable heart failure related to ischemic cardiomyopathy. Could also have some COPD exacerbation as she is quite wheezy. Unfortunately, she states she continues to smoke. Empiric treatment of heart failure with diuretics. Other medications can be continued as she usually does at home. Many comorbidities, poor lifestyle, poor insight, guarded prognosis. Procedures Date of Service Date of Service: 06/08/25
--- NOTE | 2025-06-08 12:36 | MHC.CM.PN ---
CM met with Patient at bedside, in the ED, and addressed IMM with her, providing Patient with the original and a copy will be placed on the chart. Patient lives alone in an apartment and she required no services nor DME [employer]. Home/self care is the goal and CM has initiated and will follow for dc planning. PCP is Dr. Declan Arriaga and [place] will transport to home at time of dc.
[2025-06-08 13:22] LABS: Glucose, Whole Blood 264 mg/dL (60-115)
[2025-06-08] MEDS: Potassium Chloride ER 20 MEQ TAB.ER.PRT PO (13:27)
[2025-06-08 14:02] LABS: Anion Gap 10 (12-20); Blood Urea Nitrogen 21 mg/dL (9-16); Calcium 8.6 mg/dL (8.4-10.2); Carbon Dioxide 27 mmol/L (22-29); Chloride 107 mmol/L (96-108); Creatinine Clr Calc Pharmacy 42.6; Estimated Glomerular Filt Rate 34; Potassium 3.3 mmol/L (3.3-5.1); Sodium 141 mmol/L (135-145)
[2025-06-08 16:32] LABS: Glucose, Whole Blood 294 mg/dL (60-115)
[2025-06-08] MEDS: 0.9 % Sodium Chloride Flush 3 ML SYRINGE IVFLUSH (16:35)
--- NOTE | 2025-06-08 16:47 | PC.NURSE ---
pt is awake and alert and is denying chest discomfort or sob. she is up to bathroom without assist, has steady gait. plan of care for admission is reinforced. pt is in nsr in lead 2 with strong and regular radial pulses and nonlabored resps.
--- NOTE | 2025-06-08 18:16 | PM.EVENT ---
Event Note Date of Service: 06/08/25 Event Note: Patient evaluated today after admission. Patient still in the ED without new complaints or issues. Reports feeling significantly better since admission and receival of Furosemide. Physical examination reveals bibasilar crackles with cardiac wheezing, elevated JVP and lower extremity edema. No other concerning features. Potassium was 3.0 - 20meq KCL administered to improve levels. Medications resumed and regimen initiated. Impression: Acute on chronic CHFrEF exacerbation (ischemic cardiomyopathy recent DARLENE x2 placed 04/25 at [facility]) PLAN - Continue diuresis - Monitor potassium closely - Cardiac monitoring and evaluation - ECHO report review Time Spent With Patient Time: Total time managing care of this patient today 20 minutes.
[2025-06-08] MEDS: Sacubitril/Valsartan 24/26 1 TAB TABLET PO (21:09)
[2025-06-08 21:28] LABS: Glucose, Whole Blood 283 mg/dL (60-115)
[2025-06-09 03:02] VITALS: BP 146/69; PULSE 57; RESP 16; TEMP 35.9; O2SAT 95
[2025-06-09] MEDS: 0.9 % Sodium Chloride Flush 3 ML SYRINGE IVFLUSH ×3 (03:42→16:06)
[2025-06-09 07:35] LABS: MANUAL DIFF FLAG NO
[2025-06-09 07:38] LABS: Glucose, Whole Blood 145 mg/dL (60-115)
[2025-06-09 07:41] VITALS: BP 134/63; PULSE 53; RESP 17; TEMP 36.6; O2SAT 96
[2025-06-09 07:44] LABS: Hematocrit 36.9 % (37.0-47.0); Hemoglobin 12.1 g/dl (12.0-16.0); Imm Gran Abs Auto 0.03 X10*3/uL (0.00-0.03); Imm Gran Pct Auto 0.4 % (0.0-0.4); Lymphocytes Absolute Auto 2.0 X10*3/uL (1.2-4.9); Mean Corpuscular HGB Conc 32.8 g/dl (31.0-35.0); Mean Corpuscular Hemoglobin 27.9 pg (27.0-33.0); Mean Corpuscular Volume 85.0 fL (80.0-98.0); NRBC Abs Auto 0.000 X10*3/uL (0.0-0.012); NRBC Pct Auto 0.0 /100WBC (0.0-0.2); Platelet Count 214 X10*3/uL (160-400); Red Blood Count 4.34 X10*6/uL (4.20-5.50); White Blood Count 7.7 X10*3/uL (4.8-10.8)
[2025-06-09 08:04] LABS: Anion Gap 12 (12-20); Blood Urea Nitrogen 21 mg/dL (9-16); Calcium 8.2 mg/dL (8.4-10.2); Carbon Dioxide 25 mmol/L (22-29); Chloride 111 mmol/L (96-108); Creatinine Clr Calc Pharmacy 37.3; Estimated Glomerular Filt Rate 29; Potassium 2.8 mmol/L (3.3-5.1); Sodium 145 mmol/L (135-145)
[2025-06-09] MEDS: Sacubitril/Valsartan 24/26 1 TAB TABLET PO ×2 (08:12→22:05)
[2025-06-09] MEDS: Furosemide 40 MG/4 ML VIAL IVPUSH ×2 (08:13→17:09)
[2025-06-09] MEDS: Insulin Glargine,Hum.rec.anlog 100 UNIT/ML 10 ML VIAL 12 UNIT SUBCUT (08:13)
[2025-06-09] MEDS: Potassium Chloride/H20 10 MEQ/100 ML PIGGYBACK 100 MEQ IV ×4 (08:17→13:23)
--- NOTE | 2025-06-09 11:22 | P.PNIM_ITS ---
Subjective Subjective Date of Service: 06/09/25 Interval History: The patient is sitting up in bed today on evaluation. RN by bedside. The patient has no new complaints today. Reports significant improvement in overall care compared to yesterday. Reports breathing better. Remains on NC 2L. Review of Systems Review of Systems: Yes all other systems are reviewed and are negative Physical Exam 2 Exam: Exam: General: A&O x3, oriented to time place person and siutaion, comfortable, no pain Cardiac: S1, S2 auscultated with no S3/4, mild ejection systolic murmur auscultated at RUSB withiout radiation to mitral region. Well perfused. JVP elevated. Respiratory: Right sided crackles auscultated at the base of the lung, otherwise normal breath sounds auscultated throughout remaining lung zones, without wheezing, rales. Normal rate. GI/ : No abdominal pain on palpation, no masses or distentions. MSK: Normal ambulation without pain at bony prominences or musculature. 4+ bilateral pitting edema to mid shins. Neurological: Normal neurological examination on overview, without obvious CN II-XII abnormalities. Vital Signs: Vital Signs: Last Vital Signs Temp 97.9 F 06/09/25 07:41 Pulse 53 06/09/25 07:41 Resp 17 06/09/25 07:41 BP 134/63 06/09/25 07:41 Pulse Ox 96 06/09/25 07:41 O2 Del Method Nasal Cannula 06/09/25 07:41 O2 Flow Rate 2 06/09/25 07:41 BMI result Body Mass Index 35.6 Objective Data Active Medications Acetaminophen (Acetaminophen 325 Mg Tablet) 650 mg PO Q6H PRN PRN Reason: Pain, Mild 1-3,fever,headache Albuterol Sulfate (Albuterol Sulfate 90 Mcg 8 Gm Inhaler) 1 puff INHALE QID PRN PRN Reason: for dyspnea Albuterol/Ipratropium (Albuterol/Iprat 2.5/0.5mg 3 Ml Ampul.Neb) 3 ml INHALE Q4H PRN PRN Reason: Shortness of Breath/Wheezing Amlodipine Besylate (Amlodipine Besylate 10 Mg Tablet) 10 mg PO DAILY [facility]; Protocol Last Admin: 06/09/25 08:13 Dose: 10 mg Documented By: HILARIA Apixaban (Apixaban 5 Mg Tablet) 5 mg PO BID [facility] Last Admin: 06/09/25 08:12 Dose: 5 mg Documented By: HILARIA Atorvastatin Calcium (Atorvastatin Calcium 80 Mg Tablet) 80 mg PO DAILY [facility] Last Admin: 06/09/25 08:12 Dose: 80 mg Documented By: HILARIA Calcium Carbonate (Calcium Carbonate 750 Mg Tab.Chew) 750 mg PO Q4H PRN PRN Reason: Heartburn Carvedilol (Carvedilol 25 Mg Tablet) 25 mg PO BID [facility]; Protocol Last Admin: 06/09/25 08:13 Dose: 25 mg Documented By: HILARIA Dextrose (Dextrose 50 % 25 Gm/50 Ml Syringe) 25 gm IVPUSH Q15M PRN; Protocol PRN Reason: per Hypoglycemia Standing Ord. Digoxin (Digoxin 0.125 Mg Tablet) 0.125 mg PO DAILY [facility]; Protocol Last Admin: 06/09/25 08:12 Dose: 0.125 mg Documented By: HILARIA Furosemide (Furosemide 40 Mg/4 Ml Vial) 40 mg IVPUSH BID@0900,1800 [facility]; Protocol Last Admin: 06/09/25 08:13 Dose: 40 mg Documented By: HILARIA Gabapentin (Gabapentin 300 Mg Capsule) 300 mg PO BID [facility] Last Admin: 06/09/25 08:12 Dose: 300 mg Documented By: HILARIA Glucose (Glucose Gel 15 Gm Gel..Gram.) 15 gm PO Q15M PRN; Protocol PRN Reason: per Hypoglycemia Standing Ord. Hydralazine HCl (Hydralazine Hcl 20 Mg/Ml Vial) 10 mg IVPUSH Q6H PRN; Protocol PRN Reason: SBP > 160 Hydroxyzine HCl (Hydroxyzine Hcl 25 Mg Tablet) 25 mg PO BID [facility] Last Admin: 06/09/25 08:12 Dose: 25 mg Documented By: HILARIA Potassium Chloride (Potassium Chloride/H20) 10 meq in 100 mls @ 100 mls/hr IV Q1H [facility] Stop: 06/09/25 12:14 Last Admin: 06/09/25 10:25 Dose: 100 mls/hr Documented By: HILARIA Insulin Glargine (Insulin Glargine,Hum.Rec.Anlog 100 Unit/Ml 10 Ml Vial) 12 unit SUBCUT DAILY [facility] Last Admin: 06/09/25 08:13 Dose: 12 unit Documented By: HILARIA Insulin Human Lispro (Insulin Lispro 100 Unit/Ml 3 Ml Vial) 0 unit SUBCUT QIDACHS [facility]; Protocol Last Admin: 06/09/25 08:25 Dose: Not Given Documented By: HILARIA Non-Admin Reason: No Insulin Coverage Magnesium Hydroxide (Milk Of Magnesia 30 Ml Oral.Susp) 30 ml PO DAILY PRN PRN Reason: Constipation Melatonin (Melatonin 3 Mg Tablet) 6 mg PO BEDTIME PRN PRN Reason: Insomnia Melatonin (Melatonin 3 Mg Tablet) 3 mg PO BEDTIME [facility] Last Admin: 06/08/25 21:09 Dose: 3 mg Documented By: JARROD Omeprazole (Omeprazole 20 Mg Capsule.Dr) 20 mg PO DAILY@629 [facility] Last Admin: 06/09/25 06:05 Dose: 20 mg Documented By: JARROD Ondansetron HCl (Ondansetron Hcl 4 Mg/2 Ml Vial) 4 mg IVPUSH Q8H PRN PRN Reason: Nausea and Vomiting Pantoprazole Sodium (Pantoprazole Sodium 40 Mg/10 Ml Vial) 40 mg IVPUSH DAILY@629 [facility] Last Admin: 06/09/25 06:05 Dose: 40 mg Documented By: JARROD Polyethylene Glycol (Polyethylene Glycol 3350 17 Gm Powd.Pack) 17 gm PO DAILY PRN PRN Reason: Constipation Sacubitril/Valsartan (Sacubitril/Valsartan 1 Tab Tablet) 1 tab PO BID [facility]; Protocol Last Admin: 06/09/25 08:12 Dose: 1 tab Documented By: HILARIA Senna (Sennosides 8.6 Mg Tablet) 17.2 mg PO BEDTIME [facility] Last Admin: 06/08/25 21:09 Dose: 17.2 mg Documented By: JARROD Sertraline HCl (Sertraline Hcl 25 Mg Tablet) 25 mg PO DAILY [facility] Last Admin: 06/09/25 10:26 Dose: 25 mg Documented By: HILARIA Sertraline HCl (Sertraline Hcl 100 Mg Tablet) 100 mg PO DAILY [facility] Last Admin: 06/09/25 08:13 Dose: 100 mg Documented By: HILARIA Sodium Chloride (0.9 % Sodium Chloride Flush 3 Ml Syringe) [facility] Last Admin: 06/09/25 08:16 Dose: 3 ml Documented By: HILARIA Labs 06/09/25 07:30 06/09/25 07:30 Labs: Laboratory Results - last 24 hr 06/08/25 06/08/25 06/08/25 13:18 13:39 16:28 MCV MCH MCHC RDW Plt Count MPV Immature Gran % (Auto) Neut % (Auto) Lymph % (Auto) Real % (Auto) Eos % (Auto) Baso % (Auto) Lymph # (Auto) Real # (Auto) Eos # (Auto) Baso # (Auto) Abs Immat Gran (auto) Absolute Neuts (auto) Absolute Nucleated RBC Nucleated RBC % (auto) Anion Gap 10 L Estim Creat Clear Calc 42.6 Estimated GFR 34 POC Glucose 264 H 294 H Random Glucose 303 H Calcium 8.6 06/08/25 06/09/25 06/09/25 21:25 07:30 07:34 MCV 85.0 MCH 27.9 MCHC 32.8 RDW 15.7 Plt Count 214 MPV 10.9 Immature Gran % (Auto) 0.4 Neut % (Auto) 64.9 Lymph % (Auto) 26.3 Real % (Auto) 5.7 Eos % (Auto) 1.8 Baso % (Auto) 0.9 Lymph # (Auto) 2.0 Real # (Auto) 0.4 Eos # (Auto) 0.1 Baso # (Auto) 0.1 Abs Immat Gran (auto) 0.03 Absolute Neuts (auto) 5.0 Absolute Nucleated RBC 0.000 Nucleated RBC % (auto) 0.0 Anion Gap 12 Estim Creat Clear Calc 37.3 Estimated GFR 29 POC Glucose 283 H 145 H Random Glucose 153 H Calcium 8.2 L Microbiology Microbiology Results: Microbiology 06/07/25 22:00 Blood Culture - Preliminary Blood - Venous No growth after 24 hours. 06/07/25 22:08 Blood Culture - Preliminary Blood - Venous No growth after 24 hours. Assessment and Plan (1) Acute hypoxemic respiratory failure: Status: Acute (2) Acute on chronic combined systolic and diastolic CHF (congestive heart failure): Status: Acute (3) Ischemic cardiomyopathy: Status: Acute (4) Essential hypertension: Status: Acute (5) Coronary artery disease: Status: Acute (6) Afib: Status: Acute (7) Hyperlipidemia: Status: Acute Plan Pleasant 54 year old female, with an history of HTN, HLD, CAD complicated by myocardial infarction requiring DARLENE x2 (04/2025), ischemic cardiomyopathy with rEF, type II DM, smoker, presents to hospital with complaints of dyspnoea at rest, admitted with acute hypoxic respiratory failure secondary to acute on chronic exacerbation of ischemic cardiomyopathy with rEF in the setting of hypertensive urgency. Acute hypoxic respiratory failure Acute on Chronic CHFrEF exacerbation Bilateral lower extremity edema Hypokalemia The patient has been effectively diuresed close to goal now. Tolerating furosemide IV with appropriate diuresis. Hypokalemia secondary to diuresis. PLAN - Recheck BMP midday (and Mg) - Furosemide 40mg BID IV - Replete potassium with 40meq KCL - I/O q6hrly - Telemetry - Pending ECHO report Ischemic cardiomyopathy Hypertensive urgency CAD s/p DARLENE x2 04/2025 - [facility] HTN HLD PLAN - Amlodipine 10mg OD PO - Carvedilol 25mg BID PO - Digoxin 0.125mg OD PO - Atorvastatin 80mg OD PO - Entresto 24/26 OD PO - Apixaban 5mg BID PO Type II DM Diabetic foot ulcer PLAN - POC glucose TID preprandially & nocte - ISS/ Glargine - Resume outpatient medications once nearing discharge CKD stage III Diabetic nephropathy HTN nephropathy - Monitor renal function - I/O monitor closely - K & Mg repletion CODE STATUS: FULL CODE VTE PROPHYLAXIS: Apoixaban 5mg BID PO Total time managing care of this patient today: 35 minutes. Quality Stroke Does the patient have a stroke diagnosis?: No Reason for No Anti-thrombotic by Day Two: N/A - Med Ordered VTE Prior VTE?: No VTE Risk Level:: Medical - moderate - high VTE Device Contraindication: N/A - Device Ordered VTE Drug Contraindication: N/A - Med Ordered
[2025-06-09 11:38] VITALS: BP 148/65; PULSE 74; RESP 17; TEMP 36.2; O2SAT 92
[2025-06-09 12:32] LABS: Anion Gap 12 (12-20); Blood Urea Nitrogen 22 mg/dL (9-16); Calcium 8.5 mg/dL (8.4-10.2); Carbon Dioxide 28 mmol/L (22-29); Chloride 107 mmol/L (96-108); Creatinine Clr Calc Pharmacy 36.7; Estimated Glomerular Filt Rate 29; Magnesium 1.9 mg/dL (1.6-2.6); Potassium 3.6 mmol/L (3.3-5.1); Sodium 143 mmol/L (135-145)
[2025-06-09 12:38] LABS: B Type Natriuretic Peptide 681 pg/mL (<100)
[2025-06-09 12:54] LABS: Glucose, Whole Blood 263 mg/dL (60-115)
[2025-06-09 15:38] VITALS: BP 147/65; PULSE 61; RESP 18; TEMP 36.5; O2SAT 92
[2025-06-09 15:59] LABS: Glucose, Whole Blood 170 mg/dL (60-115)
[2025-06-09 16:35] LABS: Anion Gap 13 (12-20); Blood Urea Nitrogen 23 mg/dL (9-16); Calcium 8.2 mg/dL (8.4-10.2); Carbon Dioxide 26 mmol/L (22-29); Chloride 109 mmol/L (96-108); Creatinine Clr Calc Pharmacy 37.1; Estimated Glomerular Filt Rate 29; Potassium 3.5 mmol/L (3.3-5.1); Sodium 144 mmol/L (135-145)
[2025-06-09 19:40] VITALS: BP 165/78; PULSE 66; RESP 20; TEMP 36.3; O2SAT 97
[2025-06-09 20:32] LABS: Glucose, Whole Blood 205 mg/dL (60-115)
[2025-06-09 23:05] VITALS: BP 160/75; PULSE 50; RESP 20; TEMP 36.1; O2SAT 92
[2025-06-10 03:15] VITALS: BP 138/63; PULSE 57; RESP 16; TEMP 36.3; O2SAT 94
[2025-06-10 07:52] VITALS: BP 156/70; PULSE 54; RESP 17; TEMP 36.1; O2SAT 97
[2025-06-10 08:12] LABS: Glucose, Whole Blood 165 mg/dL (60-115)
[2025-06-10 08:47] LABS: Albumin Level 3.0 g/dL (3.5-5.0); Anion Gap 13 (12-20); Blood Urea Nitrogen 23 mg/dL (9-16); Calcium 8.5 mg/dL (8.4-10.2); Carbon Dioxide 28 mmol/L (22-29); Chloride 109 mmol/L (96-108); Creatinine Clr Calc Pharmacy 36.0; Estimated Glomerular Filt Rate 28; Potassium 3.5 mmol/L (3.3-5.1); Sodium 146 mmol/L (135-145)
[2025-06-10 08:54] LABS: B Type Natriuretic Peptide 545 pg/mL (<100)
[2025-06-10] MEDS: Furosemide 40 MG/4 ML VIAL IVPUSH (09:18)
[2025-06-10] MEDS: Insulin Glargine,Hum.rec.anlog 100 UNIT/ML 10 ML VIAL 12 UNIT SUBCUT (09:19)
[2025-06-10] MEDS: Sacubitril/Valsartan 24/26 1 TAB TABLET PO (09:19)
[2025-06-10] MEDS: 0.9 % Sodium Chloride Flush 3 ML SYRINGE IVFLUSH (09:21)
[2025-06-10 11:48] VITALS: BP 154/64; PULSE 70; RESP 17; TEMP 36.8; O2SAT 98
[2025-06-10 11:49] LABS: Glucose, Whole Blood 199 mg/dL (60-115)
--- NOTE | 2025-06-10 14:52 | P.DS_ITS ---
DS: Providers Provider Date of Service: 06/08/25 Date of admission: 06/08/25 01:38 Date of discharge: 06/10/25 Primary care physician: Declan Arriaga MD Admitting clinician: Anette Cardona Consults: 06/08/25 02:50 Consult to Cardiology Routine Consulting Provider: [facility] Reason for consultation: chest pain, recent PCI 2 stents HF, AFIB hx 06/08/25 03:10 Consult to Wound Care Routine Reason for consultation: Right unstageable wound, patient is a diabetic Attending physician on discharge: Anette Cardona DS: Diagnosis Discharge Diagnosis (1) Acute hypoxemic respiratory failure: Status: Acute (2) Acute on chronic combined systolic and diastolic CHF (congestive heart failure): Status: Acute (3) Ischemic cardiomyopathy: Status: Acute (4) Essential hypertension: Status: Acute (5) Coronary artery disease: Status: Acute (6) Afib: Status: Acute (7) Hyperlipidemia: Status: Acute DS: Summary Hospital Course Hospital Course: Pleasant 54 year old female, with an history of HTN, HLD, CAD complicated by myocardial infarction requiring DARLENE x2 (04/2025), ischemic cardiomyopathy with rEF, type II DM, smoker, presents to hospital with complaints of dyspnoea at rest, admitted with acute hypoxic respiratory failure secondary to acute on chronic exacerbation of ischemic cardiomyopathy with rEF in the setting of hypertensive urgency. Acute hypoxic respiratory failure Acute on Chronic CHFrEF exacerbation Bilateral lower extremity edema Hypokalemia Ischemic cardiomyopathy Hypertensive urgency CAD s/p DARLENE x2 04/2025 - [facility] AFib HTN HLD The patient has been effectively diuresed close to goal now. Tolerating furosemide IV with appropriate diuresis. Hypokalemia secondary to diuresis. Currently back to clinical baseline. Ready for discharge home with management and follow up with PCP and Cardiology outpatient. - Amlodipine 10mg OD PO - Carvedilol 25mg BID PO - Digoxin 0.125mg OD PO - Atorvastatin 80mg OD PO - Entresto 24/ OD PO - Apixaban 5mg BID PO Status at Discharge Functional status at discharge: independent ambulation Overall status at discharge: patient is back to baseline Time Attestation Total time managing care of this patient today: 35 mintues. Discharge Coordination Time (in mins): 15 Quality: Safe Use of Opioids Does Pt have an Active Cancer Diagnosis on the Problem List?: No Quality: Stroke Does the patient have a stroke diagnosis?: No Physical Exam Exam: Exam: General: A&O x3, oriented to time place person and siutaion, comfortable, no pain Cardiac: S1, S2 auscultated with no S3/4, no MRG. Well perfused. Respiratory: Normal breath sounds auscultated throughout all lung zones, without wheezing, rales. Normal rate. GI/ : No abdominal pain on palpation, no masses or distentions. MSK: Normal ambulation without pain at bony prominences or musculature Neurological: Normal neurological examination on overview, without obvious CN II-XII abnormalities. Vital Signs: Vital Signs: Last Vital Signs Temp 98.2 F 06/10/25 11:48 Pulse 70 06/10/25 11:48 Resp 17 06/10/25 11:48 BP 154/64 H 06/10/25 11:48 Pulse Ox 98 06/10/25 11:48 O2 Del Method Room Air 06/10/25 11:48 O2 Flow Rate 2 06/10/25 07:52 BMI result Body Mass Index 35.6 DS: Data Data Completed and Pending Completed studies during hospitalization [Text1]: Procedures Assistance with Respiratory Ventilation, Less than 24 Consecutive Hours, Continuous Positive Airway Pressure (11/17/24) Dilation of Right Ureter with Intraluminal Device, Via Natural or Artificial Opening Endoscopic (10/21/21) Drainage of Right Kidney, Percutaneous Approach (09/08/22) Drainage of Right Lobe Liver, Percutaneous Approach (09/08/22) Fluoroscopy of Right Kidney, Ureter and Bladder (10/21/21) Insertion of Infusion Device into Right Cephalic Vein, Percutaneous Approach (11/17/24) Labs on day of discharge: Laboratory Results - last 24 hr 06/09/25 06/09/25 06/09/25 15:52 16:00 20:22 Hold Purple Top SEE NOTE Sodium 144 Potassium 3.5 Chloride 109 H Carbon Dioxide 26 Anion Gap 13 BUN 23 H Creatinine 1.81 H Estim Creat Clear Calc 37.1 Estimated GFR 29 POC Glucose 170 H 205 H Random Glucose 180 H Calcium 8.2 L B-Natriuretic Peptide Albumin 06/10/25 06/10/25 06/10/25 07:46 07:50 11:43 Hold Purple Top Sodium 146 H Potassium 3.5 Chloride 109 H Carbon Dioxide 28 Anion Gap 13 BUN 23 H Creatinine 1.87 H Estim Creat Clear Calc 36.0 Estimated GFR 28 POC Glucose 165 H 199 H Random Glucose 164 H Calcium 8.5 B-Natriuretic Peptide 545 H Albumin 3.0 L Preliminary micro results at discharge 06/07/25 22:00 Blood Culture - Preliminary Blood - Venous No growth after 48 hours. 06/07/25 22:08 Blood Culture - Preliminary Blood - Venous No growth after 48 hours. Discharge Plan Discharge Anticipated Discharge Date/Time: 06/10/25 14:54 Patient Disposition: Home, Self-Care Discharge Diagnosis: Acute CHFpEF exacerbation with pulmonary edema due to hypertensive urgency Referrals: Declan Arriaga MD [Primary Care Provider, Internal Medicine] - 1 Week Discharge Medications: Continued sertraline 100 mg tablet 100 mg PO DAILY Qty: 30 3RF (DME) blood-glucose meter [FreeStyle Lite Meter] Kit See Rx Instructions .ROUTE .MEDSUPPLY Qty: 1 0RF Rx Instructions: As directed (DME) lancets [FreeStyle Lancets] 28 gauge misc See Rx Instructions .Route Qty: 100 1RF Rx Instructions: Test 3 times daily (DME) FreeStyle Lite Strips Strip See Rx Instructions .Route Qty: 100 0RF Rx Instructions: Use 1 test strip three times a day (DME) pen needle, diabetic [BD Ultra-Fine Gi Pen Needle] 32 gauge x 5/32 needle See Rx Instructions subcut DAILY Qty: 50 8RF Rx Instructions: As directed albuterol sulfate 90 mcg/actuation HFA aerosol inhaler 1 puff PO QID PRN (Reason: for dyspnea) Qty: 6.7 3RF pyridoxine (vitamin B6) 100 mg tablet 100 mg PO DAILY 90 Days Qty: 90 1RF Eliquis 5 mg tablet 5 mg PO BID Qty: 60 5RF amlodipine 10 mg tablet 10 mg PO DAILY Qty: 30 7RF metformin 500 mg tablet 500 mg PO DAILY Qty: 90 2RF atorvastatin 80 mg tablet 80 mg PO DAILY Qty: 30 3RF Entresto 24-26 mg tablet 1 tab PO BID Qty: 60 1RF Protocol: Hold for SBP< HOLD for SBP < : 90 carvedilol 25 mg tablet 25 mg PO BID Qty: 60 1RF Protocol: Hold for SBP/HR < HOLD for SBP < : 90 HOLD for HR < : 60 digoxin 125 mcg (0.125 mg) tablet 0.125 mg PO DAILY Qty: 30 1RF Protocol: Hold for HR <: HOLD for HR < : 60 sertraline 25 mg tablet 25 mg PO DAILY hydroxyzine pamoate 25 mg capsule 25 mg PO BID pantoprazole 40 mg tablet,delayed release (DR/EC) 40 mg PO DAILY@0630 Novolin N FlexPen 100 unit/mL (3 mL) insulin pen 15 unit subcut DAILY ergocalciferol (vitamin D2) [Vitamin D2] 1,250 mcg (50,000 unit) capsule 1,250 mcg PO SA acetaminophen 500 mg Tablet 1,000 mg PO Q6H PRN (Reason: Headache/Pain) hydroxyzine pamoate 25 mg capsule 25 mg PO DAILY@1200 PRN (Reason: Anxiety) Rx Instructions: Pt takes BID scheduled and this dose if absolutely needed in the afternoon for anxiety. melatonin 3 mg tablet 3 mg PO BEDTIME Patient Comments: OTC per pt One Daily Multi-Vit w-Mineral 4.5 mg iron tablet 1 tab PO DAILY Patient Comments: OTC per pt gabapentin 100 mg capsule 300 mg PO BID Discharge Orders: Discharge Order (Routine); Ordered 06/10/25 Ordered By: Anette Cardona Diet: Advance to usual diet Activity on Discharge: As tolerated Stand Alone Forms: Patient Portal Discharge page Print Language: Sinhala Care Plan Goals: - encourage dietary compliance - encourage checking blood pressure at home - follow up with PCP - Follow up with Cardiology Health Concerns: as above Plan of Treatment: as above Assessment: Back to baseline. Stable overall. Dietary and exercize recommendations outpatient encouraged
--- NOTE | 2025-06-10 15:03 | MHC.CM.PN ---
pt dcd home self care
== END 2025-06-10 15:40 | disposition home or self-care (01) | DRG 291 ==
LOC: HO.ED 06-08 01:13 → HO.EDOVER 06-08 01:49 → HO.IMC 06-08 19:50
PROVIDERS: Nurse Practitioner Family; Registered Nurse Emergency; Admitting Provider Student in an Organized Health Care Education/Training Program; Emergency Provider Emergency Medicine; PCP Internal Medicine; Visit Provider Hospitalist
DX: I13.0 Hypertensive heart and chronic kidney disease with heart failure and stage 1 through stage 4 chronic kidney disease, or unspecified chronic kidney disease (principal); I50.23 Acute on chronic systolic (congestive) heart failure; J96.01 Acute respiratory failure with hypoxia; I48.19 Other persistent atrial fibrillation; J44.1 Chronic obstructive pulmonary disease with (acute) exacerbation; I16.0 Hypertensive urgency; F17.210 Nicotine dependence, cigarettes, uncomplicated; Z71.6 Tobacco abuse counseling; E87.6 Hypokalemia; N18.30 Chronic kidney disease, stage 3 unspecified; I25.5 Ischemic cardiomyopathy; K21.9 Gastro-esophageal reflux disease without esophagitis; I25.10 Atherosclerotic heart disease of native coronary artery without angina pectoris; Z95.5 Presence of coronary angioplasty implant and graft; Z79.01 Long term (current) use of anticoagulants; Z79.84 Long term (current) use of oral hypoglycemic drugs; Z79.899 Other long term (current) drug therapy
CPT/HCPCS: 36415; 71046; 73630; 74177; 80048; 80053; 80162; 81001; 81003; 82040; 82947; 83605; 83735; 83880; 84484; 85025; 85610; 85652; 86140; 87040; 93005; 93306; 99285; J1938; J2405; J2470; J3480; Q9967

== ENCOUNTER → 2025-06-07 19:18 | Outpatient (BNV) | payer MEDICARE, SELFPAY | PROVIDERS: Admitting Provider Student in an Organized Health Care Education/Training Program; Emergency Provider Emergency Medicine; PCP Internal Medicine; Visit Provider Internal Medicine | DX: I48.91 Unspecified atrial fibrillation (principal); I25.2 Old myocardial infarction | CPT/HCPCS: 93010 ==

== ENCOUNTER → 2025-06-07 19:31 | Outpatient (BNV) | payer MEDICARE, SELFPAY | PROVIDERS: PCP Internal Medicine; Visit Provider Radiology Diagnostic Radiology | DX: R07.9 Chest pain, unspecified (principal) | CPT/HCPCS: 71046 ==

== ENCOUNTER → 2025-06-08 01:38 | Outpatient (BNV) | payer MEDICARE, SELFPAY | PROVIDERS: Admitting Provider Student in an Organized Health Care Education/Training Program; Emergency Provider Emergency Medicine; PCP Internal Medicine; Visit Provider Internal Medicine | DX: I50.43 Acute on chronic combined systolic (congestive) and diastolic (congestive) heart failure (principal); I48.19 Other persistent atrial fibrillation; I25.10 Atherosclerotic heart disease of native coronary artery without angina pectoris; R79.89 Other specified abnormal findings of blood chemistry; I25.5 Ischemic cardiomyopathy; I35.1 Nonrheumatic aortic (valve) insufficiency; I34.81 Nonrheumatic mitral (valve) annulus calcification | CPT/HCPCS: 93306; 99223 ==

== ENCOUNTER → 2025-06-08 01:38 | Outpatient (BNV) | payer MEDICARE, SELFPAY | PROVIDERS: Admitting Provider Student in an Organized Health Care Education/Training Program; Emergency Provider Emergency Medicine; PCP Internal Medicine; Visit Provider Nurse Practitioner Family | DX: R07.89 Other chest pain (principal) | CPT/HCPCS: 99223; 99499 ==

== ENCOUNTER 2025-07-24 10:17 | Outpatient (AMB) | payer MEDICARE, SELFPAY ==
--- NOTE | 2025-07-24 10:21 | AM.OFFWIN_ITS ---
Intake Vital Signs 07/24/25 10:23 Weight 201 lb BP 160/84 H Blood Pressure Location Lt brachial Position Sitting Respiration 16 Pulse 71 Pulse Source Pulse Oximeter Temp 98.1 F Temp Source Oral Pulse Oximetry (%) 97 Intake Visit Reasons: EP ulcer bottom right foot/ leaking/pain Patient Tobacco Use Status: Tobacco use Unknown Casino Controller Required: No Accompanied by: Self / Same As Patient Allergies No Known Allergies Allergy (Verified 07/24/25 10:23) HPI HPI Comments History of Present Illness Details History of Present Illness - The patient is a 54-year-old female pr esenting with multiple concerns regarding chronic diarrhea, a foot ulcer and leg swelling. - She reports persistent diarrhea since a colon reconstruction surgery five years ago. - The patient has poorly controlled diab etes mellitus, with high blood glucose levels and is on metformin. Does not check bg's regularly. - She has hypertension with consistently high blood pressure readings and taking her daily medication. She is nervous today, she states. - The patient experiences bilateral leg swelling since a previous hospitalization where stents were placed. Does not take lasix. - She has a right foot ulcer that occasi onally oozes bloody fluid but is not painful or warm. Physical Exam General: Cooperative, healthy appearing, comfortable, no acute distress and well developed Orientation: Patient oriented x3 Limitations: No limitations Head: Normal to inspection Ears: Hearing grossly normal bilaterally Nose: Normal External nose present Face and sinus: Normal facial exam Eyes: Appearance normal, both eyes and all related structures Neck: Normal visual inspection and Yes full ROM Respiratory: Normal respiratory effort and able to speak in complete sentences. Lungs are clear to auscultation. Skin: right foot plantar aspect has 1.25cm oval ulcer scabbed over, not warm, no drainage, no surrounding erythema. Full ROM foot and all toes, toes NVI Neuro: Patient oriented x3 Extremities: 1+ pitting edema bilaterally Review of Systems - Gastrointestinal: Reports persistent d iarrhea since surgical intervention five years ago - Cardiovascular: Reports bilateral leg swelling since hospitalization - Integumentary: Reports leg ulcer with occasional bloody discharge All systems reviewed and are unremarkable except as noted in HPI [facility] Medical History Patellofemoral arthritis of left knee Primary osteoarthritis of hips, bilateral Smoker Essential hypertension Persistent atrial fibrillation Ischemic cardiomyopathy Mixed hyperlipidemia Chronic kidney disease (CKD), stage III (moderate) Contraindication to percutaneous coronary intervention (PCI) PAF (paroxysmal atrial fibrillation) 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 Myocardial infarction COVID-19 vaccine series completed Nephrolithiasis Type 2 diabetes mellitus with morbid obesity Obesity (BMI 30-39.9) Depression Vitamin D deficiency GERD without esophagitis Coronary artery disease Benign essential hypertension Pure hypercholesterolemia Intertrigo 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 Necrotizing fasciitis Surgical History History of cardiac catheterization History of surgery History of surgery Hx of cystoscopy History of breast lump/mass excision (~03/2017) History of heart artery stent (~09/2015) History of arthroscopy of left knee (~12/2011) Family History Father Alzheimer's dementia Social History Household Members: None Household Members Other:: lives alone Housing: Apartment Do you presently have visiting nurse or other home services: No Alcohol intake: former Patient Tobacco Use Status: Tobacco use Unknown Tobacco use type: Cigarette Cigarette Packs Per Day: 0.5 Cigarettes Per Day: 16 Years Smoked: 30 +/- e-Cigarette/Vaping Use: Currently Using Second Hand Smoke Exposure: No Substance Use Type: Marijuana Advance Directives Date on File: 07/23/22 service: No Current occupational status: disabled Cognitive needs: No Hearing needs: No Vision needs: Yes Physical Exam Vital Signs: Last Vital Signs Temp 98.1 F 07/24/25 10:23 Pulse 71 07/24/25 10:23 Resp 16 07/24/25 10:23 BP 160/84 H 07/24/25 10:23 Pulse Ox 97 07/24/25 10:23 Assessment & Plan Assessment & Plan (1) Foot ulcer, right: Code(s): L97.519 - Non-pressure chronic ulcer of other part of right foot with unspecified severity Qualifiers: Non-pressure ulcer stage: unspecified non-pressure ulcer stage Qualified Code(s): L97.519 - Non-pressure chronic ulcer of other part of right foot with unspecified severity Plan: Patient was informed and verbally consented to the use of an ambient scribe for clinic note documentation during this visit. - Ordered XR to rule out osteomyelitis. - Recommend monitoring blood glucose levels regularly, keeping BGs in range. She has an appt with PCP next month for her DM2. - Messaged PCP to refer to wound care for further management and monitoring of the ulcer. (2) Chronic diarrhea: Code(s): K52.9 - Noninfective gastroenteritis and colitis, unspecified Plan: Diarrhea - Follow up with PCP. (3) Bilateral edema of lower extremity: Code(s): R60.0 - Localized edema Plan: Peripheral Edema - Messaged Cardiology to trial of diuretics such as Lasix to manage edema, with close monitoring of blood pressure. Orders: Orders XR foot RT min 3V Today L97.519 - Non-pressure chronic ulcer of other part of right foot with unspecified severity Coding Level of Care Code Est Pt Level 4 (06830) Diagnoses Ulcer of right foot, unspecified ulcer stage L97.519 Non-pressure ulcer stage: unspecified non-pressure ulcer stage Chronic diarrhea K52.9 Bilateral edema of lower extremity R60.0
[2025-07-24 10:23] VITALS: BP 160/84; PULSE 71; RESP 16; TEMP 36.7; O2SAT 97
--- OUTSIDE RECORDS SUMMARY | 2025-07-24 12:28 | XMS_ITS | Encounter Summary ---
Author Organization [facility] Address [address] [place] [address] [place] [address] Phone Care Team Providers Care Bracelet Maker Novelty Name Role Phone Rancho Duarte MD Primary Care Provider [phone] Encounter Details Date Type Department Care Team (Late st Contact Info) Description 05/08/2020 Procedure Pass [facility] PERIOPERATIVE DEPT [address] [place] [phone] Social History Tobacco Use Types Packs/Day Years [...] Infection Onset Date Last Indicated Resolved Time CoV-Exposed Comment:[facility] Infection Control Unit [id number] See 05.24.20 note for detail Exposed to COIVD on 05/21/20 = Enhanced Respiratory Isolation (ROB) until 06/04/20. Exposed patients: no roomates, ROB for two weeks incubation period following exposure. This status continued regardless of new COVID test results, and will auto- on 06/04/20. 05/21/2020 05/24/2020 06/04/2020 1:24 A M EDT documented as of this encounter Care Teams Bracelet Maker Novelty Relationship Specialty Start Date End Date Rancho Duarte MD [address] [place] [address] [place] [id number] PCP - General Internal Medicine 03/27/20 documented as of this encounter Additional Source Comments The information contained in this document represents components of the legal health record. It is not the complete legal health record.[facility]
--- OUTSIDE RECORDS SUMMARY | 2025-07-24 12:28 | XMS_ITS | Encounter Summary ---
Author Organization [facility] Address [address] [place] [address] [place] [address] Phone Care Team Providers Care Button Tacker Name Role Phone Rancho Duarte MD Primary Care Provider [phone] Encounter Details Date Type Department Care Team (Late st Contact Info) Description 04/24/2020 Procedure Pass [facility] [place] [address] [place] [phone] Social History Tobacco Use Types Packs/Day Years [...] Onset Date Last Indicated Resolved Time CoV-Exposed Comment:[facility] [place] [id number] See 05.24.20 note for detail Exposed to COIVD on 05/21/20 = Enhanced Respiratory Isolation (ROB) until 06/04/20. Exposed patients: no roomates, ROB for two weeks incubation period following exposure. This status continued regardless of new COVID test results, and will auto- on 06/04/20. 05/21/2020 05/24/2020 06/04/2020 1:24 A M EDT documented as of this encounter Care Teams Button Tacker Relationship Specialty Start Date End Date Rancho Duarte MD [address] [place] [address] [place] [address] PCP - General Internal Medicine 03/27/20 documented as of this encounter Additional Source Comments The information contained in this document represents components of the legal health record. It is not the complete legal health record.[facility]
--- OUTSIDE RECORDS SUMMARY | 2025-07-24 12:28 | XMS_ITS | Encounter Summary ---
Author Organization [facility] Address [address] [place] [address] Phone Care Team Providers Care Paleontological Helper Name Role Phone Rancho Duarte MD Primary Care Provider [phone] Encounter Details Date Type Department Care Team (Late st Contact Info) Description 04/03/2020 Procedure Pass [facility], [place] [address] [facility] Floor, [address] [place] [address] Social History Tobacco Use Types Packs/Day Years [...] 03/31/2020 03/31/2020 0 6:05 AM EDT CoV-Exposed Comment:[facility] Infection Control Unit [id number] See 05.24.20 note for detail Exposed to COIVD on 05/21/20 = Enhanced Respiratory Isolation (ROB) until 06/04/20. Exposed patients: no roomates, ROB for two weeks incubation period following exposure. This status continued regardless of new COVID test results, and will auto- on 06/04/20. 05/21/2020 05/24/2020 06/04/2020 1:24 A M EDT documented as of this encounter Care Teams Paleontological Helper Relationship Specialty Start Date End Date Rancho Duarte MD [address] [place] [address] [place] [address] PCP - General Internal Medicine 03/27/20 documented as of this encounter Additional Source Comments The information contained in this document represents components of the legal health record. It is not the complete legal health record.[facility]
--- OUTSIDE RECORDS SUMMARY | 2025-07-24 12:28 | XMS_ITS | Encounter Summary ---
Author Organization [facility] Address [address] [place] [address] [place] [address] Phone Care Team Providers Care Curb Setter Helper Name Role Phone Rancho Duarte MD Primary Care Provider [phone] Encounter Details Date Type Department Care Team (Late st Contact Info) Description 05/05/[address] [facility] PERIOPERATIVE DEPT [address] [place] [phone] Social History Tobacco Use Types Packs/Day Years [...] Onset Date Last Indicated Resolved Time CoV-Exposed Comment:[facility] Infection Control Unit [id number] See 05.24.20 note for detail Exposed to COIVD on 05/21/20 = Enhanced Respiratory Isolation (ROB) until 06/04/20. Exposed patients: no roomates, ROB for two weeks incubation period following exposure. This status continued regardless of new COVID test results, and will auto- on 06/04/20. 05/21/2020 05/24/2020 06/04/2020 1:24 A M EDT documented as of this encounter Care Teams Curb Setter Helper Relationship Specialty Start Date End Date Rancho Duarte MD [address] [place] [address] [place] [address] PCP - General Internal Medicine 03/27/20 documented as of this encounter Additional Source Comments The information contained in this document represents components of the legal health record. It is not the complete legal health record.[facility]
--- OUTSIDE RECORDS SUMMARY | 2025-07-24 12:28 | XMS_ITS | Encounter Summary ---
Author Organization [facility] Address [address] [place] [address] [place] [address] Phone Care Team Providers Care Entrance Guard Name Role Phone Rancho Duarte MD Primary Care Provider [phone] Encounter Details Date Type Department Care Team (Late st Contact Info) Description 04/19/2020 Procedure Pass [facility] [place] [address] [place] [phone] Social History Tobacco Use Types Packs/Day Years [...] Onset Date Last Indicated Resolved Time CoV-Exposed Comment:[facility] [place] [id number] See 05.24.20 note for detail Exposed to COIVD on 05/21/20 = Enhanced Respiratory Isolation (ROB) until 06/04/20. Exposed patients: no roomates, ROB for two weeks incubation period following exposure. This status continued regardless of new COVID test results, and will auto- on 06/04/20. 05/21/2020 05/24/2020 06/04/2020 1:24 A M EDT documented as of this encounter Care Teams Entrance Guard Relationship Specialty Start Date End Date Rancho Duarte MD [address] [place] [address] [place] [address] PCP - General Internal Medicine 03/27/20 documented as of this encounter Additional Source Comments The information contained in this document represents components of the legal health record. It is not the complete legal health record.[facility]
--- OUTSIDE RECORDS SUMMARY | 2025-07-24 12:28 | XMS_ITS | Encounter Summary ---
Author Organization [facility] Address [address] [place] [address] [place] [address] Phone Care Team Providers Care Change Advisor Name Role Phone Rancho Duarte MD Primary Care Provider [phone] Encounter Details Date Type Department Care Team (Late st Contact Info) Description 05/02/2020 Procedure [place] [facility] [place] [address] [place] [phone] Social History Tobacco Use Types Packs/Day Years [...] Onset Date Last Indicated Resolved Time CoV-Exposed Comment:[facility] [place] [id number] See 05.24.20 note for detail Exposed to COIVD on 05/21/20 = Enhanced Respiratory Isolation (ROB) until 06/04/20. Exposed patients: no roomates, ROB for two weeks incubation period following exposure. This status continued regardless of new COVID test results, and will auto- on 06/04/20. 05/21/2020 05/24/2020 06/04/2020 1:24 A M EDT documented as of this encounter Care Teams Change Advisor Relationship Specialty Start Date End Date Rancho Duarte MD [address] [place] [address] [place] [address] PCP - General Internal Medicine 03/27/20 documented as of this encounter Additional Source Comments The information contained in this document represents components of the legal health record. It is not the complete legal health record.[facility]
--- OUTSIDE RECORDS SUMMARY | 2025-07-24 12:28 | XMS_ITS | Encounter Summary ---
Author Organization [facility] Address [address] [place] [address] [place] [address] Phone Care Team Providers Care Interlibrary Loan Specialist Name Role Phone Rancho Duarte MD Primary Care Provider Encounter Details Date Type Department Care Team (Late st Contact Info) Description 04/12/2020 Procedure Pass [facility] [place] PERIOPERATIVE DEPT [address] [place] [phone] Social History Tobacco Use Types Packs/Day Years [...] Onset Date Last Indicated Resolved Time CoV-Exposed Comment:[facility] Infection Control Unit [id number] See 05.24.20 note for detail Exposed to COIVD on 05/21/20 = Enhanced Respiratory Isolation (ROB) until 06/04/20. Exposed patients: no roomates, ROB for two weeks incubation period following exposure. This status continued regardless of new COVID test results, and will auto- on 06/04/20. 05/21/2020 05/24/2020 06/04/2020 1:24 A M EDT documented as of this encounter Care Teams Interlibrary Loan Specialist Relationship Specialty Start Date End Date Rancho Duarte MD [address] [place] [address] [place] [id number] PCP - General Internal Medicine 03/27/20 documented as of this encounter Additional Source Comments The information contained in this document represents components of the legal health record. It is not the complete legal health record.[facility]
--- OUTSIDE RECORDS SUMMARY | 2025-07-24 12:28 | XMS_ITS | Encounter Summary ---
Author Organization [facility] Address [address] [place] [address] Phone Care Team Providers Care Instructor Creeler Name Role Phone Rancho Duarte MD Primary Care Provider [phone] Encounter Details Date Type Department Care Team (Late st Contact Info) Description 04/03/2020 Procedure Pass [facility], [place] [address] [facility], 2nd Floor, [address] [place] [address] Social History Tobacco Use Types Packs/Day Years [...] 03/31/2020 03/31/2020 0 6:05 AM EDT CoV-Exposed Comment:[facility] Infection Control Unit [id number] See 05.24.20 note for detail Exposed to COIVD on 05/21/20 = Enhanced Respiratory Isolation (ROB) until 06/04/20. Exposed patients: no roomates, ROB for two weeks incubation period following exposure. This status continued regardless of new COVID test results, and will auto- on 06/04/20. 05/21/2020 05/24/2020 06/04/2020 1:24 A M EDT documented as of this encounter Care Teams Instructor Creeler Relationship Specialty Start Date End Date Rancho Duarte MD [address] [place] [address] [place] [address] PCP - General Internal Medicine 03/27/20 documented as of this encounter Additional Source Comments The information contained in this document represents components of the legal health record. It is not the complete legal health record.[facility]
--- OUTSIDE RECORDS SUMMARY | 2025-07-24 12:28 | XMS_ITS | Encounter Summary ---
Author Organization [facility] Address [address] [place] [address] [place] [address] Phone Care Team Providers Care Casino Floor Person Name Role Phone Rancho Duarte MD Primary Care Provider [phone] Encounter Details Date Type Department Care Team (Late st Contact Info) Description 04/05/2020 Procedure Pass [facility] [place]PT [address] [place] [phone] Social History Tobacco Use Types Packs/Day Years [...] Onset Date Last Indicated Resolved Time CoV-Exposed Comment:[facility] [place] [id number] See 05.24.20 note for detail Exposed to COIVD on 05/21/20 = Enhanced Respiratory Isolation (ROB) until 06/04/20. Exposed patients: no roomates, ROB for two weeks incubation period following exposure. This status continued regardless of new COVID test results, and will auto- on 06/04/20. 05/21/2020 05/24/2020 06/04/2020 1:24 A M EDT documented as of this encounter Care Teams Casino Floor Person Relationship Specialty Start Date End Date Rancho Duarte MD [address] [place] [address] [place] [id number] PCP - General Internal Medicine 03/27/20 documented as of this encounter Additional Source Comments The information contained in this document represents components of the legal health record. It is not the complete legal health record.[facility]
--- OUTSIDE RECORDS SUMMARY | 2025-07-24 12:28 | XMS_ITS | Encounter Summary ---
Author Organization [facility] Address [address] [facility] [address] [place] [address] Phone Care Team Providers Care Software Engineer Sales Name Role Phone Rancho Duarte MD Primary Care Provider [phone] Encounter Details Date Type Department Care Team (Late st Contact Info) Description 03/29/2020 Procedure Pass [facility] [place] [address] [place] [phone] Social History Tobacco Use Types Packs/Day Years [...] 03/31/2020 03/31/2020 0 6:05 AM EDT CoV-Exposed Comment:[facility] [place] [id number] See 05.24.20 note for detail Exposed to COIVD on 05/21/20 = Enhanced Respiratory Isolation (ROB) until 06/04/20. Exposed patients: no roomates, ROB for two weeks incubation period following exposure. This status continued regardless of new COVID test results, and will auto- on 06/04/20. 05/21/2020 05/24/2020 06/04/2020 1:24 A M EDT documented as of this encounter Care Teams Software Engineer Sales Relationship Specialty Start Date End Date Rancho Duarte MD [address] [place] [address] [place] [id number] PCP - General Internal Medicine 03/27/20 documented as of this encounter Additional Source Comments The information contained in this document represents components of the legal health record. It is not the complete legal health record.[facility]
--- OUTSIDE RECORDS SUMMARY | 2025-07-24 12:28 | XMS_ITS | Encounter Summary ---
Author Organization [facility] Address [address] [place] [address] [place] [address] Phone Care Team Providers Care Exploration Geologist Name Role Phone Rancho Duarte MD Primary Care Provider [phone] Encounter Details Date Type Department Care Team (Late st Contact Info) Description 04/08/2020 Procedure Pass [facility] [place]PT [address] [place] [phone] Social History Tobacco Use Types Packs/Day Years [...] Onset Date Last Indicated Resolved Time CoV-Exposed Comment:[facility] Infection Control Unit [id number] See 05.24.20 note for detail Exposed to COIVD on 05/21/20 = Enhanced Respiratory Isolation (ROB) until 06/04/20. Exposed patients: no roomates, ROB for two weeks incubation period following exposure. This status continued regardless of new COVID test results, and will auto- on 06/04/20. 05/21/2020 05/24/2020 06/04/2020 1:24 A M EDT documented as of this encounter Care Teams Exploration Geologist Relationship Specialty Start Date End Date Rancho Duarte MD [address] [place] [address] [place] [id number] PCP - General Internal Medicine 03/27/20 documented as of this encounter Additional Source Comments The information contained in this document represents components of the legal health record. It is not the complete legal health record.[facility]
--- OUTSIDE RECORDS SUMMARY | 2025-07-24 12:28 | XMS_ITS | Encounter Summary ---
Author Organization [facility] Address [address] [place] [address] [place] [address] Phone Care Team Providers Care Senior Game Designer Name Role Phone Rancho Duarte MD Primary Care Provider [phone] Encounter Details Date Type Department Care Team (Late st Contact Info) Description 04/22/2020 Procedure Pass [facility] PERIOPERATIVE DEPT [address] [place] [phone] Social History Tobacco Use Types Packs/Day Years [...] Onset Date Last Indicated Resolved Time CoV-Exposed Comment:[facility] Infection Control Unit [id number] See 05.24.20 note for detail Exposed to COIVD on 05/21/20 = Enhanced Respiratory Isolation (ROB) until 06/04/20. Exposed patients: no roomates, ROB for two weeks incubation period following exposure. This status continued regardless of new COVID test results, and will auto- on 06/04/20. 05/21/2020 05/24/2020 06/04/2020 1:24 A M EDT documented as of this encounter Care Teams Senior Game Designer Relationship Specialty Start Date End Date Rancho Duarte MD [address] [place] [address] [place] [id number] PCP - General Internal Medicine 03/27/20 documented as of this encounter Additional Source Comments The information contained in this document represents components of the legal health record. It is not the complete legal health record.[facility]
--- OUTSIDE RECORDS SUMMARY | 2025-07-24 12:28 | XMS_ITS | Encounter Summary ---
Author Organization [facility] Address [address] [facility] [address] [place] [address] Phone Care Team Providers Care Health Care Coordinator Name Role Phone Rancho Duarte MD Primary Care Provider [phone] Encounter Details Date Type Department Care Team (Late st Contact Info) Description 05/13/[address] [facility] PERIOPERATIVE DEPT [address] [place] [phone] Social History Tobacco Use Types Packs/Day Years Used Date Smoking Tobacco: Never Assessed Comments No Sex and Gender Information Value Date Recorded [...] Onset Date Last Indicated Resolved Time CoV-Exposed Comment:[facility] Infection Control Unit [id number] See 05.24.20 note for detail Exposed to COIVD on 05/21/20 = Enhanced Respiratory Isolation (ROB) until 06/04/20. Exposed patients: no roomates, ROB for two weeks incubation period following exposure. This status continued regardless of new COVID test results, and will auto- on 06/04/20. 05/21/2020 05/24/2020 06/04/2020 1:24 A M EDT documented as of this encounter Care Teams Health Care Coordinator Relationship Specialty Start Date End Date Rancho Duarte MD [address] [place] [address] [place] [id number] PCP - General Internal Medicine 03/27/20 documented as of this encounter Additional Source Comments The information contained in this document represents components of the legal health record. It is not the complete legal health record.[facility]
--- OUTSIDE RECORDS SUMMARY | 2025-07-24 12:28 | XMS_ITS | Encounter Summary ---
Author Organization [facility] Address [address] [facility] [address] [place] [address] Phone Care Team Providers Care Manager Sourcing Name Role Phone Rancho Duarte MD Primary Care Provider [phone] Encounter Details Date Type Department Care Team (Late st Contact Info) Description 05/22/2020 Procedure Pass [facility] PERIOPER[place]IVE DEPT [address] [place] [phone] Social History Tobacco Use Types Packs/Day Years Used Date Smoking Tobacco: Never Smokeless Tobacco: Never Comments No Sex and Gender Information Value [...] Date Last Indicated Resolved Time CoV-Exposed Comment:[facility] Infection Control Unit [id number] See 05.24.20 note for detail Exposed to COIVD on 05/21/20 = Enhanced Respiratory Isolation (ROB) until 06/04/20. Exposed patients: no roomates, ROB for two weeks incubation period following exposure. This status continued regardless of new COVID test results, and will auto- on 06/04/20. 05/21/2020 05/24/2020 06/04/2020 1:24 A M EDT documented as of this encounter Care Teams Manager Sourcing Relationship Specialty Start Date End Date Rancho Duarte MD [address] [place] [address] [place] [id number] PCP - General Internal Medicine 03/27/20 documented as of this encounter Additional Source Comments The information contained in this document represents components of the legal health record. It is not the complete legal health record.[facility]
--- OUTSIDE RECORDS SUMMARY | 2025-07-24 12:28 | XMS_ITS | Encounter Summary ---
Author Organization [facility] Address [address] [facility] [address] [place] [address] Phone Care Team Providers Care Crop And Soil Technician Name Role Phone Rancho Duarte MD Primary Care Provider [phone] Encounter Details Date Type Department Care Team (Late st Contact Info) Description 03/27/2020 Procedure Pass [facility] DEPT [address] [place] [phone] Social History Tobacco Use Types Packs/Day Years [...] Indicated Resolved Time CoV-Risk Comment:Per note documentation 03/28/2020 03/28/2020 0 1:32 PM EDT CoV-Risk Comment:Per note documentation 03/31/2020 03/31/2020 0 6:05 AM EDT CoV-Exposed Comment:[facility] [place] Unit [id number] See 05.24.20 note for detail Exposed to COIVD on 05/21/20 = Enhanced Respiratory Isolation (ROB) until 06/04/20. Exposed patients: no roomates, ROB for two weeks incubation period following exposure. This status continued regardless of new COVID test results, and will auto- on 06/04/20. 05/21/2020 05/24/2020 06/04/2020 1:24 A M EDT documented as of this encounter Care Teams Crop And Soil Technician Relationship Specialty Start Date End Date Rancho Duarte MD [address] [place] [address] [place] [address] PCP - General Internal Medicine 03/27/20 documented as of this encounter Additional Source Comments The information contained in this document represents components of the legal health record. It is not the complete legal health record.[facility]
--- OUTSIDE RECORDS SUMMARY | 2025-07-24 12:28 | XMS_ITS | Encounter Summary ---
Author Organization [facility] Address [address] [place] [address] [place] [address] Phone Care Team Providers Care Director Software Quality Assurance Name Role Phone Rancho Duarte MD Primary Care Provider [phone] Encounter Details Date Type Department Care Team (Late st Contact Info) Description 04/29/2020 Procedure Pass [facility] [place] PERIOPERATIVE DEPT [address] [place] [phone] Social History Tobacco Use Types Packs/Day Years [...] Date Last Indicated Resolved Time CoV-Exposed Comment:[facility] Infection Control Unit [id number] See 05.24.20 note for detail Exposed to COIVD on 05/21/20 = Enhanced Respiratory Isolation (ROB) until 06/04/20. Exposed patients: no roomates, ROB for two weeks incubation period following exposure. This status continued regardless of new COVID test results, and will auto- on 06/04/20. 05/21/2020 05/24/2020 06/04/2020 1:24 A M EDT documented as of this encounter Care Teams Director Software Quality Assurance Relationship Specialty Start Date End Date Rancho Duarte MD [address] [place] [address] [place] [id number] PCP - General Internal Medicine 03/27/20 documented as of this encounter Additional Source Comments The information contained in this document represents components of the legal health record. It is not the complete legal health record.[facility]
--- OUTSIDE RECORDS SUMMARY | 2025-07-24 12:28 | XMS_ITS | Clinical Summary ---
Author Organization [facility] Address [address] [place] [id number] Phone Care Team Providers Care Senior Software Development Engineer Name Role Phone Rancho Duarte MD Primary Care Provider [phone] Allergies No known active allergies Medications atorvastatin (LIPITOR) 80 MG tablet Take 80 mg by mouth daily. Active sertraline (ZOLOFT) 100 MG tablet Take 100 mg by mouth daily. Active carvedilol (COREG) 12.5 MG tablet [The details of the medication are not available because there are pending changes by a home health clinician.] 15 tablet 05/24/20 Active Additional Information Patient not taking.Reason: Not effective, Informant: Other, Reported on 11/29/2024 acetaminophen (TYLENOL) 325 mg tablet Take 2 tablets (650 mg total) by mouth every 6 (six) hours as needed for mild pain or fever. 0 05/24/20 Active aspirin 81 mg chewable tablet Take 1 tablet (81 mg total) by mouth daily. 05/25/20 Active dextrose (D50W) 50 % Syrg syringe Inject 0-50 mL (0-25 g total) into the vein as needed (see administration instructions). 05/24/20 Active gabapentin (NEURONTIN) 100 MG capsule Take 1 capsule (100 mg total) by mouth every 8 (eight) hours. 30 capsule 05/24/20 Active heparin 5,000 unit/mL injection Inject 1 mL (5,000 Units total) under the skin every 8 (eight) hours. 05/24/20 Active insulin lispro (ADMELOG, HUMALOG) 100 unit/mL injection vial Inject 0-12 Units under the skin 3 (three) times a day with meals. GIVE EVEN IF NPO Sliding scale insulin - Moderate dose Blood glucose (mg/dL): Insulin dose Glucose 70-150: 0 unit. Glucose 151-200: 2 units. Glucose 201-250: 4 units. Glucose 251-300: 6 units. Glucose 301-350: 8 units. Glucose 351-400: 10 units. Glucose >400: 12 units and call RC. For blood glucose < 70 mg/dL call RC AND if patient: 1. Able to take PO, give 15 g of carbohydrate (4 oz fruit juice, regular soda, 8 oz of skim milk, or 3 to 4 glucose tablets) 2. Unable to take PO and PIV PRESENT, administer D50W per prn medication order OR 3. Unable to take PO and NO PIV, call RC/KNEE BOLTER to obtain order for glucagon Check blood glucose in 15 minutes and repeat if < 80 mg/dL and call RCC 05/24/20 Active ipratropium-albut Celio (DUONEB) 0.5-3 mg (2.5 mg base)/3 mL nebulizer solution Take 3 mL by nebulization 4 (four) times a day as needed for wheezing or shortness of breath/dyspnea. 05/24/20 Active melatonin 3 mg Tab [The details of the medication are not available because there are pending changes by a home health clinician.] 05/24/20 Active Additional Information Patient taking differently:3 mgOralNightly, Reported on 12/07/2024 multivitamins with iron Tab Take 1 tablet by mouth daily. 0 05/24/20 Active omeprazole (PRILOSEC) 40 MG capsule Take 1 capsule (40 mg total) by mouth daily. 05/25/20 Active polyethylene glycol (MIRALAX) 17 gram packet Take 17 g by mouth 2 (two) times a day. 05/24/20 Active senna (SENOKOT) 8.6 mg tablet Take 2 tablets by mouth nightly at bedtime. 05/24/20 Active simethicone (MYLICON) 80 mg chewable tablet Take 1 tablet (80 mg total) by mouth 4 (four) times a day as needed. 05/24/20 Active insulin NPH (HUMULIN N,NOVOLIN N) 100 unit/mL injection vial Inject 15 Units under the skin daily with breakfast. If NPO give 8 Units and start IV D5 1/2NS at 75 cc/hr. 05/25/20 20 Active insulin regular (HUMULIN-R,NOVOLI N-R) 100 unit/mL injection Inject 0-8 Units under the skin nightly at bedtime. OKAY TO GIVE IF NOT RECEIVING NUTRITIONAL INSULIN. Sliding scale insulin - Moderate dose Blood glucose (mg/dL): Insulin dose Glucose 70-150: 0 unit. Glucose 151-200: 0 units. Glucose 201-250: 0 units. Glucose 251-300: 0 units. Glucose 301-350: 4 units. Glucose 351-400: 6 units. Glucose >400: 8 units and call RC. For blood glucose < 70 mg/dL call RC AND if patient: 1. Able to take PO, give 15 g of carbohydrate (4 oz fruit juice, regular soda, 8 oz of skim milk, or 3 to 4 glucose tablets) 2. Unable to take PO and PIV PRESENT, administer D50W per prn medication order OR 3. Unable to take PO and NO PIV, call RC/KNEE BOLTER to obtain order for glucagon Check blood glucose in 15 minutes and repeat if < 80 mg/dL and call RC 05/24/20 Active carvedilol (COREG) 25 MG tablet Take 25 mg by mouth 2 (two) times a day with meals. 11/29/19 25 Active apixaban (ELIQUIS) 5 mg (74 tabs) tablets in DVT/PE starter pack Take 1 mg by mouth 2 (two) times a day. 11/29/19 25 Active bumetanide (BUMEX) 1 MG tablet Take 1 mg by mouth daily. Take 2 tablets daily 11/29/19 25 Active sacubitriL-valsar arevalo (ENTRESTO) 24-26 mg per tablet Take 1 tablet by mouth 2 (two) times a day. 11/29/19 25 Active digoxin (LANOXIN) 125 mcg tablet Take 125 mcg by mouth daily. 11/29/19 25 Active amLODIPine (NORVASC) 10 MG tablet Take 10 mg by mouth daily. 11/29/19 25 Active pyridoxine, vitamin B6, (VITAMIN B-6) 100 MG tablet Take 100 mg by mouth daily. 11/29/19 25 Active ergocalciferol (DRISDOL) 50,000 unit capsule Take 50,000 Units by mouth once a week. 12/02/19 25 Active hydrOXYzine (VISTARIL) 25 MG capsule Take 25 mg by mouth 2 (two) times a day. 11/29/19 Active albuterol sulfate 90 mcg/actuation aebs Take 1 PFU by mouth 4 (four) times a day as needed (Shortness of breath). 11/29/19 Active metFORMIN (GLUCOPHAGE) 500 MG tablet Take 500 mg by mouth daily with breakfast. 11/29/19 Active bismuth subsalicylate (PINK BISMUTH) 262 mg/15 mL suspension Take 15 mL by mouth every 6 (six) hours as needed for indigestion. take as needed for diarrhea 12/02/19 Active Active Problems Problem Noted Date Diagnosed Date Hypertension 04/22/2020 Hyperlipidemia 04/22/2020 Coronary artery disease 04/22/2020 Unspecified protein-calorie malnutrition 020 Type 2 diabetes mellitus wit h hyperglycemia, without long-term current use of insulin 03/29/2020 Assessment & Plan (03/29/2020 4:37 PM EDT): 49F morbidly obese with uncontrolled type 2 diabetes admitted with metabolic disarray and Garima's gangrene. Critically ill with profound hyperglycemia and marked insulin resistance. Her insulin drip requirement, while transiently low because of the likely saturation of insulin receptors when insulin drip was running at 16 units per hour, is likely to rebound with ferocity. Accordingly, would be very careful about presuming that we can manage her insulin requirement with a sliding scale. Although I have made the dosing more aggressive, would favor not using the insulin sliding scale. Instead, would : 1) start NPH insulin 50 units Q12H. Give first dose at 6pm or sooner if sugar starts to rise above 100. 2) Would overlap with the insulin drip, to be started again when sugars rise above 150. I do not think it likely with an insulin drip requirement of over 10 units per hour, that even an intense strength sliding scale will help to maintain euglycemia. The use of the insulin drip is particularly well suited if her tube feeds are ramped up and there is fluctuating glucose as a result. Necrotizing soft tissue infection 03/27/2020 Assessment & Plan (04/09/2020 9:13 AM EDT): 49F with PMH of uncontrolled T2DM, morbid obesity, hypertension, hyperlipidemia, MDD, CAD (STEMI S/P cardiac stent 09/22/2015) who presents as an ICU transfer from [facility] on 03/27 for management of her Garima's gangrene. S/p debridement 03/27. NEURO # Pain control/Sedation - Tylenol ATC, oxycodone 5-10 mg PRN. - Melatonin 3 mg QHS for circadian regulation. # Depression. Chronic problem exacerbated by hospitalization. - Currently holding home sertraline. Monitor for signs/symptoms of SSRI withdrawal. PULM: # Acute respiratory failure with ARDS. Now extubated to 2-3 L NC. - Failed extubation 04/06 due to flash pulm edema - Successfully extubated 04/06 - Continue Duoneb for component of wheezing. CV: # Mixed shock, primarily septic with possible cardiogenic component given evidence of reduced EF ~30% at OSH prior to initiation of vasopressor support. NT-proNBP elevated. - Repeat TTE with EF 57%, mild to moderate TR. - off pressors # Intermittent bradycardia with pause on 03/31 requiring CPR. HR 50s-1st degree AVB on 12-lead. - Continue to monitor on telemetry, atropine IVP PRN. - Dopamine if recurs and Cards consult if needed - Carvedilol 12.5 mg BID. # CAD s/p unspecified stent placement in 2014. - ASA 81 mg daily. - Holding home ACEi, statin, BB. # HTN. Chronic stable problem. - nicardipine gtt PRN for Systolic <150 (recent flash pulm edema 04/06) - Nifedipine increased to 20 mg Q4H. - Add hydralazine 50 mg PO Q6H. - Hold home ACEi - Carvedilol 12.5 mg BID. GI: # Nutrition: - Vital TF 1.2 @ 20 - BIOMETRIC SCREENER evaluation today. - Rectal tube in place. - Consider diverting colostomy given proximity of wound to anal verge and evidence of fecal contamination. - PPI BID. # Elevated ALP - Trend LFTs twice / week RENAL: # Oliguric acute kidney injury. Now resolved with significantly improved urine output. Cr ~0.7. - Trend BMP, I/O. - Goal TBB -0.5-1 L. - Additional diuresis as needed pending TBB evaluation in PM. # Hypokalemia to K < 3 today and yesterday requiring vigorous repletion. Likely in the setting of prolonged DKA prior with total body K depletion. - Follow K, BMP closely and replete PRN. HEME: # Anemia. Likely AOCD with component of surgical blood loss. Currently with stable Hb. - Trend CBC, transfuse to Hb > 7.0. 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 - Previously on vancomycin, Zosyn, clindamycin at OSH. - RML consolidation on AM CXR ?aspiration during chest compressions - HIV test neg - Appreciate additional ID recs. - Blood cx: NGTD - Urine Cx: few yeast - 03/28 wound cx: few lactobacillus, rare lorena glabrata - Fluconazole (04/03-04/13). - Linezolid (04/01-04/13). - Meropenem (03/28-04/13). - Rossana 500mg q12h (03/28-03/29; 03/31 - 04/03 ) - Last OR was 04/05, next 04/08 - Low threshold for C difficile PCR if large stool output. # COVID risk. - Confirmed negative by ALTERATION MANAGER PCR for SARS-CoV-2. Endocrine: # T2DM with intermittent HHS vs DKA. Likely poorly controlled at baseline. Presented initially with BG ~1000s. Complicated by DKA 03/29, now resolved with AG closure. - NPH 14 U BID, RISS. - POC BG Q1-2H, BMP Q6H. - Dr. Chua following - Holding home metformin. Assessment & Plan (04/01/2020 10:01 AM EDT): NEURO: # Pain control/Sedation: - Propofol gtt 50, ketamine gtt 5, dilaudid @ 4 - Received 100 mg rocuronium for vent synchrony AM of 04/01, will hold off on infusion for now - Dilaudid 0.5-1mg IV PRN for pain. - Tylenol ATC. # Anisocoria (R > L), improving with minimal concern for additional neurologic deficits. # Depression. Chronic problem exacerbated by hospitalization. - Currently holding home sertraline. Monitor for signs/symptoms of SSRI withdrawal. PULM: # Acute respiratory failure. Intubated. - Last ABG 7.42 with P/F 162-->228 -> 143. - CXR (03/31) with pulmonary edema - ?ARDS picture vs. pulm edema - either way patient will likely benefit from diuresis - Diuresis with Lasix 80 mg IV x 1 given volume overload - ineffective AM of 03/31; will give 4 mg IV bumetanide - ARDS net protocol for ventilation - s/p rocuronium IVP, consider starting oscar gtt for vent synchrony - Continue Duoneb for component of wheezing. CV: # Mixed shock, primarily septic with possible cardiogenic component given evidence of reduced EF ~30% at OSH prior to initiation of vasopressor support. - Repeat TTE with EF 57%, mild to moderate TR. - NE gtt (6) and vaso gtt (0.04) to maintain MAP goal > 65 - lactate 1.3 - Diuresis, preload optimization as above. # Intermittent bradycardia requiring pushes of atropine. Now gradually improving. HR 50s-70s this AM, 1st degree AVB on 12-lead. - Continue to monitor on telemetry, atropine IVP PRN. - Given stress-dosed steroids at OSH. # CAD s/p unspecified stent placement in 2014. - Holding home ACEi, statin, BB. # HTN. Chronic stable problem. - Holding home antihypertensives as above. GI: # Nutrition: - Currently NPO for OR today; on D10 - Rectal tube in place. - PPI BID. - OR for debridement/colostomy today. # Elevated ALP possibly due to accelerated bone resorption given normal bilirubin. Transaminases normal, no evidence of shock liver. Amylase mildly elevated but nonspecific, lipase WNL. - Trend LFTs. RENAL: # Oliguric acute kidney injury. - stabilized around 2 (peak 2.89); 1.73 today; improving even with diuresis - Likely prerenal in the setting of shock (BUN/Cr > 20, FEUrea < 35). UOP robust I/s/o diuresis. - Trend BMP, I/O. - Lasix 80 mg today - continue to spot diurese PRN to keep patient negative HEME: # Anemia. Likely AOCD with component of surgical blood loss. Received 1 U pRBC overnight on 03/28. - Trend CBC, transfuse to Hb > 7.0. - H/H 8.7/26.1 today ID: # Garima gangrene. Previously on vancomycin, Zosyn, clindamycin at OSH. - RML consolidation on AM CXR ?aspiration during chest compressions - Afebrile, WBC 22.2 - To OR today for repeat debridement and assessment of perineum. - Obtain HIV test - will need consent from HCP - Appreciate additional ID recs. - Blood cx: NGTD - Urine Cx: few yeast - 03/28 wound cx: few lactobacillus, rare lorena glabrata - Vanc 1g (03/28 - ) - Lois 500mg q12h (03/28 - ) - Clinda 900mg q8h (03/28 - ) - Rossana 500mg q12h (03/28-03/29; 03/31 - ) #COVID -f/u swab Endocrine: # T2DM with intermittent HHS vs DKA. Likely poorly controlled at baseline. Presented initially with BG ~1000s. Complicated by DKA 03/29, now resolved with AG closure. - Currently on D10W given NPH dose this AM + NPO for procedure. - NPH 70 U BID (45U if NPO) - high-dose modified RISS. - POC BG Q1-2H, BMP Q6H. - Appreciate additional endocrinology recs. - Holding home metformin. Social History Tobacco Use Types Packs/Day Years Used Date Smoking Tobacco: Never Smokeless Tobacco: Never Tobacco Cessation:Counseling Given: No Alcohol Use Standard Drinks/Week Comments Never 0 (1 standard drink = 0.6 oz pur e alcohol) Home Health Assessment: Transportation Answer Date Recorded Lack of Transportation (Medical) No 12/19/2024 Lack of Transportation (Non-Medical) No 12/19/2024 Patient Unable or Declines to Respond No 12/19/2024 Education Answer Date Recorded Are you interested in more education? Not on brian e 02/26/2023 Are you concerned about learning? Not on file 02/26/2023 No 02/26/2023 No 02/26/2023 Digital Access Answer Date Recorded No 03/27/2023 No 03/27/2023 No 03/27/2023 Reliable internet access at home? Not on file 03/27/2023 Device with a working camera? Not on file Comments No Sex and Gender Information Value Date Recorded Sex Assigned at Not on file Legal Sex Female 4:05 PM EDT Gender Identity Not on file Sexual Orientation Not on file Last Filed Vital Signs Vital Sign Reading Time Taken Comments Blood Pressure 146/70 12/19/2024 12:49 PM EST Pulse 71 12/19/2024 12:49 PM EST Temperature 36.1 C (97 F) 12/19/2024 12:49 PM EST Respiratory Rate 20 12/12/2024 1:30 PM EST Oxygen Saturation 96% 12/19/2024 12:49 PM EST Inhaled Oxygen Concentration 28% 04/07/2020 2 :16 PM EDT Weight 89.8 kg (198 lb) 11/29/2024 10:40 AM EST Height 160 cm (5' 3 ) 11/29/2024 10:40 AM EST Body Mass Index 35.07 11/29/2024 10:40 AM EST Plan of Treatment Health Maintenance Due Date Last Done Comments DEPRESSION SCREENING 1980 HEPATITIS C SCREENING 1986 PNEUMOCOCCAL VACCINES (50+ years) (1 of 2 - PCV) 1987 PAP SMEAR 1989 MAMMOGRAM 2008 COLOGUARD 2013 COLONOSCOPY 2013 COLORECTAL CANCER SCREENING 2013 FIT TEST 2013 FOBT 2013 SIGMOIDOSCOPY 2013 VIRTUAL COLONOSCOPY 2013 ZOSTER VACCINES (1 of 2) 2018 DIABETIC EYE EXAM 03/29/2020 HEMOGLOBIN A1C 06/29/2020 03/29/2020, 03/29/2020 CREATININE LEVEL 05/27/2021 05/27/2020, , 05/09/2020, Additional history exists POTASSIUM LEVEL 05/27/2021 05/27/2020, 05/01, 05/09/2020, Additional history exists INFLUENZA VACCINE (#1) 2025 0, 10/10/2019, 10/22/2016 BLOOD PRESSURE 06/18/2025 12/19/2024 COVID-19 VACCINE (2 - 2024- season) 2025 03/07/2021 Adult Td,Tdap Booster 10/22/2026 10/22/2016 HIV ONE-TIME SCREENING (18-65 YEARS) Completed 04/02/2020 SMOKING STATUS SCREENING (Once After 26 Yrs) Completed 05/27/2020 HEPATITIS A VACCINES Aged Out No long er eligible based on patient's age to complete this topic HIB VACCINES Aged Out No longer eligi ble based on patient's age to complete this topic MENINGOCOCCAL VACCINES (ACWY) Aged Out No longer eligible based on patient's age to complete this topic MENINGOCOCCAL VACCINES (B) Aged Out N o longer eligible based on patient's age to complete this topic Medical Devices Not on file Procedures Procedure Name Priority Date/Time Associated Diagnosis Comments BASIC METABOLIC PANEL STAT 05/27/2020 4:27 PM EDT HEMOGLOBIN A1C Routine 03/29/2020 11:00 AM EDT from Last 3 Months or Most Recently Relevant to Health Maintenance Results * (ABNORMAL) Basic metabolic panel (05/27/2020 4:27 PM EDT) SODIUM 135 135 - 145 mmol/L [facility] POTASSIUM 4.2 3.4 - 5.0 mmol/L [facility] CHLORIDE 99 98 - 108 mmol/L [facility] CO2 20(L) 23 - 32 mmol/L [facility] BUN 13 8 - 25 mg/dL [facility] CREATININE 0.92 0.60 - 1.50 mg/dL [facility] GLUCOSE 139(H) 70 - 110 mg/dL [facility] CALCIUM 9.1 8.5 - 10.5 mg/dL [facility] EGFR 72 >59 mL/min/1. 73m2 [facility] Comment:Estimated glomerular filtration rate calculated using the CKD-EPI equation. ANION GAP 16 3 - 17 mmol/L [facility] Blood 05/27/2020 4:27 PM EDT 05/27/2020 4:37 PM EDT us Dusty Sue MD LAB BLOOD ORDERABLES Final R esult [facility] [address] [place] [address] * (ABNORMAL) Hemoglobin A1c (03/29/2020 11:00 AM EDT) HEMOGLOBIN A1C 13.5(H) 4.3 - 6.4 % [facility] CALC MEAN BLD GLUC NOT DONE mg/dL [facility] Comment: A1C >12.0 There is no established normal range for the CMBG (Calculated Mean Blood Glucose). A hemoglobin A1c < 7% is the recommended target for most people with diabetes. The CMBG for an A1c of 7% is 154 mg/dL. The diagnostic hemoglobin A1c level for diabetes is greater than or equal to 6.5% which is a CMBG greater than or equal to 140 mg/dL. Blood 03/29/2020 11:0 0 AM EDT 03/29/2020 11:21 AM EDT us Juan Jose Ortiz MD LAB BLOOD ORDERABLES Lara castaneda Result [facility] [address] [place] [address] from Last 3 Months or Most Recently Relevant to Health Maintenance [facility] [employer] PPO MEDICARE REPLACEMENT MEDICARE PART [place] [address] AET[employer] O MEDICARE REPLACEMENT MEDICARE PART A & [place] [address] [place] [address] ACO [facility] [employer] O MEDICARE REPLACEMENT MEDICARE PART A & B [place] [address] [place], [place] [address]O AETNA PPO MEDICARE REPLACEMENT MEDICARE PART A & B [facility] AETNA PPO MEDICARE REPLACEMENT MEDICARE PART A & B [facility] A[employer] PPO MEDICARE REPLACEMENT MEDICARE PART A & B Advance Directives For more information, please contact: [phone] (9AM - 5PM [facility], Wednesday-Wednesday) Documents on File Type Date Recorded Patient Lecturer Of Portuguese Expl anation Healthcare Proxy 04/10/2020 2:54 PM * Full Code (Confirmed) (Latest Code Status on File) Date Activated Date Inactivated Comments 05/01/2020 4:13 PM Question Answer Comments Code Status Confirmed With: Patient * No Code Status Date Activated Date Inactivated Comments 04/29/2020 2:34 PM 05/01/2020 4:13 PM Code Status: Full Code (Confirmed) * Full Code (Confirmed) Date Activated Date Inactivated Comments 03/28/2020 8:40 AM 04/29/2020 2:34 PM Question Answer Comments Code Status Confirmed With: Patient Code Status Communicated To: Inpatient Attending * Full Code (Presumed) Date Activated Date Inactivated Comments 03/27/2020 8:52 PM 03/28/2020 8:40 AM Care Teams Senior Software Development Engineer Relationship Specialty Start Date End Date Rancho Duarte MD [address] [place] [address] [place] [address] PCP - General Internal Medicine 03/27/20 Additional Source Comments The information contained in this document represents components of the legal health record. It is not the complete legal health record.[facility]
--- OUTSIDE RECORDS SUMMARY | 2025-07-24 12:28 | XMS_ITS | Encounter Summary ---
Author Organization [facility] Address [address] [place] [address] [place] [address] Phone Care Team Providers Care Clerk Cashier Name Role Phone Rancho Duarte MD Primary Care Provider Encounter Details Date Type Department Care Team (Late st Contact Info) Description 04/15/2020 Procedure Pass [facility] PERIOPERATIVE DEPT [address] [place] [phone] Social History Tobacco Use Types Packs/Day Years [...] Onset Date Last Indicated Resolved Time CoV-Exposed Comment:[facility] Infection Control Unit [id number] See 05.24.20 note for detail Exposed to COIVD on 05/21/20 = Enhanced Respiratory Isolation (ROB) until 06/04/20. Exposed patients: no roomates, ROB for two weeks incubation period following exposure. This status continued regardless of new COVID test results, and will auto- on 06/04/20. 05/21/2020 05/24/2020 06/04/2020 1:24 A M EDT documented as of this encounter Care Teams Clerk Cashier Relationship Specialty Start Date End Date Rancho Duarte MD [address] [place] [address] [place] [phone] PCP - General Internal Medicine 03/27/20 documented as of this encounter Additional Source Comments The information contained in this document represents components of the legal health record. It is not the complete legal health record.[facility]
--- OUTSIDE RECORDS SUMMARY | 2025-07-24 12:29 | XMS_ITS | Encounter Summary ---
Author Organization [facility] Address [address] [facility] [address] [place] [address] Phone Care Team Providers Care Warehouser Name Role Phone Rancho Duarte MD Primary Care Provider [phone] Encounter Details Date Type Department Care Team (Late st Contact Info) Description 05/17/2020 Procedure Pass [facility] PERIOPERATIVE DEPT [address] [place] [id number] Social History Tobacco Use Types Packs/Day Years [...] Onset Date Last Indicated Resolved Time CoV-Exposed Comment:[facility] Infection Control Unit [id number] See 05.24.20 note for detail Exposed to COIVD on 05/21/20 = Enhanced Respiratory Isolation (ROB) until 06/04/20. Exposed patients: no roomates, ROB for two weeks incubation period following exposure. This status continued regardless of new COVID test results, and will auto- on 06/04/20. 05/21/2020 05/24/2020 06/04/2020 1:24 A M EDT documented as of this encounter Care Teams Warehouser Relationship Specialty Start Date End Date Rancho Duarte MD [address] [place] [address] [place] [phone] PCP - General Internal Medicine 03/27/20 documented as of this encounter Additional Source Comments The information contained in this document represents components of the legal health record. It is not the complete legal health record.[facility]
--- OUTSIDE RECORDS SUMMARY | 2025-07-24 12:29 | XMS_ITS | Encounter Summary ---
Author Organization [facility] Address [address] [facility] [address] [place] [address] Phone Care Team Providers Care Family Medicine Chair Name Role Phone Rancho Duarte MD Primary Care Provider [phone] Encounter Details Date Type Department Care Team (Late st Contact Info) Description 04/03/2020 Procedure Pass [facility] PERIOPER[facility]IVE DEPT [address] [place] [phone] Social History Tobacco Use Types Packs/Day Years [...] 03/31/2020 0 6:05 AM EDT CoV-Exposed Comment:[facility] Infection Control Unit [id number] See 05.24.20 note for detail Exposed to COIVD on 05/21/20 = Enhanced Respiratory Isolation (ROB) until 06/04/20. Exposed patients: no roomates, ROB for two weeks incubation period following exposure. This status continued regardless of new COVID test results, and will auto- on 06/04/20. 05/21/2020 05/24/2020 06/04/2020 1:24 A M EDT documented as of this encounter Care Teams Family Medicine Chair Relationship Specialty Start Date End Date Rancho Duarte MD [address] [place] [address] [place] [address] PCP - General Internal Medicine 03/27/20 documented as of this encounter Additional Source Comments The information contained in this document represents components of the legal health record. It is not the complete legal health record.[facility]
--- OUTSIDE RECORDS SUMMARY | 2025-07-24 12:29 | XMS_ITS | Encounter Summary ---
Author Organization [facility] Address [address] [facility] [address] [place] [address] Phone Care Team Providers Care Forest Fire Fighter Name Role Phone Rancho Duarte MD Primary Care Provider Encounter Details Date Type Department Care Team (Late st Contact Info) Description 04/01/2020 Procedure Pass [facility] [place] [place] [address] [place] [phone] Social History Tobacco Use Types Packs/Day Years [...] 03/31/2020 03/31/2020 0 6:05 AM EDT CoV-Exposed Comment:[facility] [place] [id number] See 05.24.20 note for detail Exposed to COIVD on 05/21/20 = Enhanced Respiratory Isolation (ROB) until 06/04/20. Exposed patients: no roomates, ROB for two weeks incubation period following exposure. This status continued regardless of new COVID test results, and will auto- on 06/04/20. 05/21/2020 05/24/2020 06/04/2020 1:24 A M EDT documented as of this encounter Care Teams Forest Fire Fighter Relationship Specialty Start Date End Date Rancho Duarte MD [address] [place] [address] [place] [address] PCP - General Internal Medicine 03/27/20 documented as of this encounter Additional Source Comments The information contained in this document represents components of the legal health record. It is not the complete legal health record.[facility]
== END 2025-07-24 10:41 | disposition home or self-care (01) ==
PROVIDERS: PCP Internal Medicine; Visit Provider Physician Assistant
DX: L97.519 Non-pressure chronic ulcer of other part of right foot with unspecified severity (principal); K52.9 Noninfective gastroenteritis and colitis, unspecified; R60.0 Localized edema

== ENCOUNTER 2025-07-24 10:17 | Outpatient (REF) | payer MEDICARE, SELFPAY ==
--- NOTE | ~2025-07-24 | XR_ITS ---
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 COMPARISON: June 07, 2025 TECHNIQUE: AP, lateral, and oblique views of the right foot. FINDINGS: There is decreased soft tissue swelling around the fifth MTP joint. There is also likely ulceration in the skin. There are 2 high density fragments within the area of ulceration, decreased from the prior. The cortical white line of the fifth metatarsal head is slightly more distinct medially compared to the prior. There is stable irregularity of the lateral fourth metatarsal head and neck surface. There is mild osteopenia of the fourth and fifth metatarsal heads. There are moderate calcaneal spurs at the Achilles tendon and plantar fascial attachments. XR/XR foot RT min 3V IMPRESSION: Decreased soft tissue swelling around the fifth MTP joint. X-ray dense foreign bodies/calcifications in the soft tissue ulceration around the fifth metatarsal has decreased from 5 to 2. There is nonspecific osteopenia of the fourth and fifth metatarsal heads. Electronically signed by: Miguel Rivera MD 07/24/2025 11:22 AM EDT
== END 2025-07-24 10:18 | disposition home or self-care (01) ==
LOC: HO.HMGCX 10:17
PROVIDERS: PCP Internal Medicine; Visit Provider Physician Assistant
DX: E11.621 Type 2 diabetes mellitus with foot ulcer (principal); L97.519 Non-pressure chronic ulcer of other part of right foot with unspecified severity; K52.9 Noninfective gastroenteritis and colitis, unspecified; R60.0 Localized edema; E11.65 Type 2 diabetes mellitus with hyperglycemia; I10 Essential (primary) hypertension; Z72.0 Tobacco use
CPT/HCPCS: 73630; 99212

== ENCOUNTER → 2025-07-24 10:54 | Outpatient (BNV) | payer MEDICARE, SELFPAY | PROVIDERS: PCP Internal Medicine; Visit Provider Radiology Diagnostic Radiology | DX: L97.511 Non-pressure chronic ulcer of other part of right foot limited to breakdown of skin (principal) | CPT/HCPCS: 73630 ==

== ENCOUNTER 2025-07-31 09:23 | Outpatient (REF) | payer MEDICARE, SELFPAY ==
--- OUTSIDE RECORDS SUMMARY | 2025-07-31 10:11 | XMS_ITS | Encounter Summary ---
Author Organization [facility] Address [address] [place] [address] [place] [address] Phone Care Team Providers Care Data Review Specialist Name Role Phone Rancho Duarte MD Primary Care Provider [phone] Encounter Details Date Type Department Care Team (Late st Contact Info) Description 05/02/2020 Procedure Pass [facility] PERI[facility]IVE DEPT [address] [place] [phone] Social History Tobacco Use Types Packs/Day Years [...] [facility] [place] [facility] Unit [id number] See 05.24.20 note for detail Exposed to COIVD on 05/21/20 = Enhanced Respiratory Isolation (ROB) until 06/04/20. Exposed patients: no roomates, ROB for two weeks incubation period following exposure. This status continued regardless of new COVID test results, and will auto- on 06/04/20. 05/21/2020 05/24/2020 06/04/2020 1:24 A M EDT documented as of this encounter Care Teams Data Review Specialist Relationship Specialty Start Date End Date Rancho Duarte MD [address] [place] [address] [place] [address] PCP - General Internal Medicine 03/27/20 documented as of this encounter Additional Source Comments The information contained in this document represents components of the legal health record. It is not the complete legal health record.[facility]
--- OUTSIDE RECORDS SUMMARY | 2025-07-31 10:11 | XMS_ITS | Encounter Summary ---
Author Organization [facility] Address [address] [place] [address] [place] [address] Phone Care Team Providers Care Apartment Maintenance Name Role Phone Rancho Duarte MD Primary Care Provider [phone] Encounter Details Date Type Department Care Team (Late st Contact Info) Description 05/05/2020 Procedure Pass [facility] [place] [address] [place] [phone] Social History Tobacco Use Types Packs/Day Years [...] Date Last Indicated Resolved Time CoV-Exposed Comment:[facility] [place]fection [place] [id number] See 05.24.20 note for detail Exposed to COIVD on 05/21/20 = Enhanced Respiratory Isolation (ROB) until 06/04/20. Exposed patients: no roomates, ROB for two weeks incubation period following exposure. This status continued regardless of new COVID test results, and will auto- on 06/04/20. 05/21/2020 05/24/2020 06/04/2020 1:24 A M EDT documented as of this encounter Care Teams Apartment Maintenance Relationship Specialty Start Date End Date Rancho Duarte MD [address] [place] [address] [place] [address] PCP - General Internal Medicine 03/27/20 documented as of this encounter Additional Source Comments The information contained in this document represents components of the legal health record. It is not the complete legal health record.[facility]
--- OUTSIDE RECORDS SUMMARY | 2025-07-31 10:11 | XMS_ITS | Encounter Summary ---
Author Organization [facility] Address [address] [place] [address] [place] [address] Phone Care Team Providers Care Boats Renter Name Role Phone Rancho Duarte MD Primary Care Provider [phone] Encounter Details Date Type Department Care Team (Late st Contact Info) Description 04/19/2020 Procedure [place] [facility] [place] [place] [address] [place] [phone] Social History Tobacco Use Types Packs/Day Years [place] [facility] [place] [facility] [place] [id number] See 05.24.20 note for detail Exposed to COIVD on 05/21/20 = Enhanced Respiratory Isolation (ROB) until 06/04/20. Exposed patients: no roomates, ROB for two weeks incubation period following exposure. This status continued regardless of new COVID test results, and will auto- on 06/04/20. 05/21/2020 05/24/2020 06/04/2020 1:24 A M EDT documented as of this encounter Care Teams Boats Renter Relationship Specialty Start Date End Date Rancho Duaret MD [address] [place] [address] [place] [address] PCP - General Internal Medicine 03/27/20 documented as of this encounter Additional Source Comments The information contained in this document represents components of the legal health record. It is not the complete legal health record.[facility]
--- OUTSIDE RECORDS SUMMARY | 2025-07-31 10:11 | XMS_ITS | Encounter Summary ---
Author Organization [facility] Address [address] [place] [address] [place] [address] Phone Care Team Providers Care Boilerhouse Mechanic Name Role Phone Rancho Duarte MD Primary Care Provider [phone] Encounter Details Date Type Department Care Team (Late st Contact Info) Description 04/22/2020 Procedure Pass [facility] [place] [address] [place] [phone] Social History Tobacco Use Types Packs/Day Years [...] Last Indicated Resolved Time CoV-Exposed Comment:[facility] [place] [id number] See 05.24.20 note for detail Exposed to COIVD on 05/21/20 = Enhanced Respiratory Isolation (ROB) until 06/04/20. Exposed patients: no roomates, ROB for two weeks incubation period following exposure. This status continued regardless of new COVID test results, and will auto- on 06/04/20. 05/21/2020 05/24/2020 06/04/2020 1:24 A M EDT documented as of this encounter Care Teams Boilerhouse Mechanic Relationship Specialty Start Date End Date Rancho Duarte MD [address] [place] [address] [place] [id number] PCP - General Internal Medicine 03/27/20 documented as of this encounter Additional Source Comments The information contained in this document represents components of the legal health record. It is not the complete legal health record.[facility]
--- OUTSIDE RECORDS SUMMARY | 2025-07-31 10:11 | XMS_ITS | Encounter Summary ---
Author Organization [facility] Address [address] [place] [address] [place] [address] Phone Care Team Providers Care Highballer Name Role Phone Rancho Duarte MD Primary Care Provider [phone] Encounter Details Date Type Department Care Team (Late st Contact Info) Description 04/29/2020 Procedure Pass [facility] [place] [place] 55 [place] [phone] Social History Tobacco Use Types Packs/Day Years [...] Onset Date Last Indicated Resolved Time CoV-Exposed Comment:[facility] [place] [id number] See 05.24.20 note for detail Exposed to COIVD on 05/21/20 = Enhanced Respiratory Isolation (ROB) until 06/04/20. Exposed patients: no roomates, ROB for two weeks incubation period following exposure. This status continued regardless of new COVID test results, and will auto- on 06/04/20. 05/21/2020 05/24/2020 06/04/2020 1:24 A M EDT documented as of this encounter Care Teams Highballer Relationship Specialty Start Date End Date Rancho Duarte MD [address] [place] [address] [place] [id number] PCP - General Internal Medicine 03/27/20 documented as of this encounter Additional Source Comments The information contained in this document represents components of the legal health record. It is not the complete legal health record.[facility]
--- OUTSIDE RECORDS SUMMARY | 2025-07-31 10:11 | XMS_ITS | Encounter Summary ---
Author Organization [facility] Address [address] [place] [address] [place] [address] Phone Care Team Providers Care Staff Analyst Name Role Phone Rancho Duarte MD Primary Care Provider [phone] Encounter Details Date Type Department Care Team (Late st Contact Info) Description 04/24/2020 Procedure Pass [facility] [place] [address] [place] [phone] Social History Tobacco Use Types Packs/Day Years [...] [place] [id number] See 05.24.20 note for detail Exposed to COIVD on 05/21/20 = Enhanced Respiratory Isolation (ROB) until 06/04/20. Exposed patients: no roomates, ROB for two weeks incubation period following exposure. This status continued regardless of new COVID test results, and will auto- on 06/04/20. 05/21/2020 05/24/2020 06/04/2020 1:24 A M EDT documented as of this encounter Care Teams Staff Analyst Relationship Specialty Start Date End Date Rancho Duarte MD [address] [place] [address] [place] [address] PCP - General Internal Medicine 03/27/20 documented as of this encounter Additional Source Comments The information contained in this document represents components of the legal health record. It is not the complete legal health record.[facility]
--- OUTSIDE RECORDS SUMMARY | 2025-07-31 10:11 | XMS_ITS | Encounter Summary ---
Author Organization [facility] Address [address] [place] [address] [place] [address] Phone Care Team Providers Care Clerical Stock Inspector Name Role Phone Rancho Duarte MD Primary Care Provider [phone] Encounter Details Date Type Department Care Team (Late st Contact Info) Description 04/15/2020 Procedure Pass [facility] PERIOPER[facility]IVE DEPT [address] [place] [phone] Social History Tobacco Use Types Packs/Day Years [...] [facility] [place] Unit [id number] See 05.24.20 note for detail Exposed to COIVD on 05/21/20 = Enhanced Respiratory Isolation (ROB) until 06/04/20. Exposed patients: no roomates, ROB for two weeks incubation period following exposure. This status continued regardless of new COVID test results, and will auto- on 06/04/20. 05/21/2020 05/24/2020 06/04/2020 1:24 A M EDT documented as of this encounter Care Teams Clerical Stock Inspector Relationship Specialty Start Date End Date Rancho Duarte MD [address] [place] [address] [place] [address] PCP - General Internal Medicine 03/27/20 documented as of this encounter Additional Source Comments The information contained in this document represents components of the legal health record. It is not the complete legal health record.[facility]
--- OUTSIDE RECORDS SUMMARY | 2025-07-31 10:11 | XMS_ITS | Clinical Summary ---
Author Organization [facility] Address [address] [place] [address] Phone Care Team Providers Care Technical Project Manager Name Role Phone Rancho Duarte MD Primary Care Provider [phone] Allergies No known active allergies Medications atorvastatin [...] every 8 (eight) hours. 30 capsule 05/24/20 20 Active heparin 5,000 unit/mL injection Inject 1 [...] to take PO and NO PIV, call [facility] to obtain order for glucagon Check blood [...] to take PO and NO PIV, call [facility] to obtain order for glucagon Check blood [...] who presents as an ICU transfer from [facility] on 03/27 for management of her [...] - Vital TF 1.2 @ 20 - LEAD SEWAGE PLANT OPERATOR evaluation today. - Rectal tube in place. [...] # COVID risk. - Confirmed negative by HEALTH SAFETY SPECIALIST PCR for SARS-CoV-2. Endocrine: # T2DM with [...] EDT) SODIUM 135 135 - 145 mmol/L [facility] POTASSIUM 4.2 3.4 - 5.0 mmol/L [facility] CHLORIDE 99 98 - 108 mmol/L [facility] CO2 20(L) 23 - 32 mmol/L [facility] BUN 13 8 - 25 mg/dL [facility] CREATININE 0.92 0.60 - 1.50 mg/dL [facility] GLUCOSE 139(H) 70 - 110 mg/dL [facility] CALCIUM 9.1 8.5 - 10.5 mg/dL [facility] EGFR 72 >59 mL/min/1. 73m2 [facility] Comment:Estimated glomerular filtration rate calculated using the CKD-EPI equation. ANION GAP 16 3 - 17 mmol/L [facility] Blood 05/27/2020 4:27 PM EDT 05/27/2020 4:37 PM EDT us Dusty Sue MD LAB BLOOD ORDERABLES Final R esult [facility] [address] [place] [address] * (ABNORMAL) Hemoglobin A1c (03/29/2020 11:00 AM EDT) HEMOGLOBIN A1C 13.5(H) 4.3 - 6.4 % [facility] CALC MEAN BLD GLUC NOT DONE mg/dL [facility] Comment: A1C >12.0 There is no established [...] MD LAB BLOOD ORDERABLES Lara castaneda Result [facility] [address] [place] [address] from Last 3 Months or Most Recently Relevant to Health Maintenance [facility] PPO MEDICARE REPLACEMENT MEDICARE PART A & B ACO [employer]ET[employer] O MEDICARE REPLACEMENT MEDICARE PART A & [place] [address] [place] [address] ACO [facility] ACO AETNA O MEDICARE REPLACEMENT MEDICARE PART A & B [address] [place], [place] [address]O AETNA PPO MEDICARE REPLACEMENT MEDICARE PART A & B [facility] AETNA PPO MEDICARE REPLACEMENT MEDICARE PART A & B [facility] PPO MEDICARE REPLACEMENT MEDICARE PART A & B Advance Directives For more information, please contact: [phone] (9AM - 5PM [facility], Wednesday-Wednesday) Documents on File Type Date Recorded Patient Institute Director Expl anation Healthcare Proxy 04/10/2020 2:54 PM [...] 8:52 PM 03/28/2020 8:40 AM Care Teams Technical Project Manager Relationship Specialty Start Date End Date Rancho Duarte MD [address] [place] [address] [place] [address] PCP - General Internal Medicine 03/27/20 Additional Source Comments The information contained in this document represents components of the legal health record. It is not the complete legal health record.[facility]
--- OUTSIDE RECORDS SUMMARY | 2025-07-31 10:11 | XMS_ITS | Encounter Summary ---
Author Organization [facility] Address [address] [place] [address] [place] [address] Phone Care Team Providers Care Violin Maker Hand Name Role Phone Rancho Duarte MD Primary Care Provider [phone] Encounter Details Date Type Department Care Team (Late st Contact Info) Description 05/08/2020 Procedure Pass [facility] PERIOPER[facility] DEPT [address] [place] [phone] Social History Tobacco Use Types Packs/Day Years [...] Onset Date Last Indicated Resolved Time CoV-Exposed Comment:[facility] Infection Control Unit [id number] See 05.24.20 note for detail Exposed to COIVD on 05/21/20 = Enhanced Respiratory Isolation (ROB) until 06/04/20. Exposed patients: no roomates, ROB for two weeks incubation period following exposure. This status continued regardless of new COVID test results, and will auto- on 06/04/20. 05/21/2020 05/24/2020 06/04/2020 1:24 A M EDT documented as of this encounter Care Teams Violin Maker Hand Relationship Specialty Start Date End Date Rancho Duarte MD [address] [place] [address] [place] [address] PCP - General Internal Medicine 03/27/20 documented as of this encounter Additional Source Comments The information contained in this document represents components of the legal health record. It is not the complete legal health record.[facility]
--- OUTSIDE RECORDS SUMMARY | 2025-07-31 10:11 | XMS_ITS | Encounter Summary ---
Author Organization [facility] Address [address] [facility] [address] [place] [address] Phone Care Team Providers Care Spikemaking Supervisor Name Role Phone Rancho Duarte MD Primary Care Provider [phone] Encounter Details Date Type Department Care Team (Late st Contact Info) Description 03/27/2020 Procedure Pass [facility] PERIOPERATIVE DEPT [address] [place] [phone] Social History Tobacco Use Types Packs/Day Years [...] 03/31/2020 03/31/2020 0 6:05 AM EDT CoV-Exposed Comment:[facility] Infection Control Unit [id number] See 05.24.20 note for detail Exposed to COIVD on 05/21/20 = Enhanced Respiratory Isolation (ROB) until 06/04/20. Exposed patients: no roomates, ROB for two weeks incubation period following exposure. This status continued regardless of new COVID test results, and will auto- on 06/04/20. 05/21/2020 05/24/2020 06/04/2020 1:24 A M EDT documented as of this encounter Care Teams Spikemaking Supervisor Relationship Specialty Start Date End Date Rancho Duarte MD [address] [place] [address] [place] [address] PCP - General Internal Medicine 03/27/20 documented as of this encounter Additional Source Comments The information contained in this document represents components of the legal health record. It is not the complete legal health record.[facility]
--- OUTSIDE RECORDS SUMMARY | 2025-07-31 10:11 | XMS_ITS | Encounter Summary ---
Author Organization [facility] Address [address] [facility] [address] [place] [address] Phone Care Team Providers Care Christmas Bell Ringer Name Role Phone Rancho Duarte MD Primary Care Provider [phone] Encounter Details Date Type Department Care Team (Late st Contact Info) Description 03/29/2020 Procedure Pass [facility] [place] [place] [address] [place] [phone] Social History Tobacco Use Types Packs/Day Years [...] 03/31/2020 03/31/2020 0 6:05 AM EDT CoV-Exposed Comment:[facility] [place] [place] Unit [id number] See 05.24.20 note for detail Exposed to COIVD on 05/21/20 = Enhanced Respiratory Isolation (ROB) until 06/04/20. Exposed patients: no roomates, ROB for two weeks incubation period following exposure. This status continued regardless of new COVID test results, and will auto- on 06/04/20. 05/21/2020 05/24/2020 06/04/2020 1:24 A M EDT documented as of this encounter Care Teams Christmas Bell Ringer Relationship Specialty Start Date End Date Rancho Duarte MD [address] [place] [address] [place] [address] PCP - General Internal Medicine 03/27/20 documented as of this encounter Additional Source Comments The information contained in this document represents components of the legal health record. It is not the complete legal health record.[facility]
--- OUTSIDE RECORDS SUMMARY | 2025-07-31 10:12 | XMS_ITS | Encounter Summary ---
Author Organization [facility] Address [address] [place] [address] [place] [address] Phone Care Team Providers Care Kick Boxer Name Role Phone Rancho Duarte MD Primary Care Provider [phone] Encounter Details Date Type Department Care Team (Late st Contact Info) Description 04/12/2020 Procedure Pass [facility] [place] [address] [place] [phone] Social History Tobacco Use Types Packs/Day Years [...] [facility] [place] [id number] See 05.24.20 note for detail Exposed to COIVD on 05/21/20 = Enhanced Respiratory Isolation (ROB) until 06/04/20. Exposed patients: no roomates, ROB for two weeks incubation period following exposure. This status continued regardless of new COVID test results, and will auto- on 06/04/20. 05/21/2020 05/24/2020 06/04/2020 1:24 A M EDT documented as of this encounter Care Teams Kick Boxer Relationship Specialty Start Date End Date Rancho Duarte MD [address] [place] [address] [place] [address] PCP - General Internal Medicine 03/27/20 documented as of this encounter Additional Source Comments The information contained in this document represents components of the legal health record. It is not the complete legal health record.[facility]
--- OUTSIDE RECORDS SUMMARY | 2025-07-31 10:12 | XMS_ITS | Encounter Summary ---
Author Organization [facility] Address [address] [place] [address] [place] [address] Phone Care Team Providers Care Executive Business Coach Name Role Phone Rancho Duarte MD Primary Care Provider [phone] Encounter Details Date Type Department Care Team (Late st Contact Info) Description 04/05/2020 Procedure Pass [facility] PERIOPER[facility]IVE DEPT [address] [place] [id number] Social History Tobacco Use Types Packs/Day Years [...] [facility] [id number] See 05.24.20 note for detail Exposed to COIVD on 05/21/20 = Enhanced Respiratory Isolation (ROB) until 06/04/20. Exposed patients: no roomates, ROB for two weeks incubation period following exposure. This status continued regardless of new COVID test results, and will auto- on 06/04/20. 05/21/2020 05/24/2020 06/04/2020 1:24 A M EDT documented as of this encounter Care Teams Executive Business Coach Relationship Specialty Start Date End Date Rancho Duarte MD [address] [place] [address] [place] [id number] PCP - General Internal Medicine 03/27/20 documented as of this encounter Additional Source Comments The information contained in this document represents components of the legal health record. It is not the complete legal health record.[facility]
--- OUTSIDE RECORDS SUMMARY | 2025-07-31 10:12 | XMS_ITS | Encounter Summary ---
Author Organization [facility] Address [address] [place] [address] [place] [address] Phone Care Team Providers Care Precast Worker Name Role Phone Rancho Duarte MD Primary Care Provider [phone] Encounter Details Date Type Department Care Team (Late st Contact Info) Description 04/08/2020 Procedure Pass [facility] PERIOPERATIVE DEPT [address] [place] [phone] Social History Tobacco Use Types Packs/Day Years [...] Onset Date Last Indicated Resolved Time CoV-Exposed Comment:[facility] Infection Control Unit [id number] See 05.24.20 note for detail Exposed to COIVD on 05/21/20 = Enhanced Respiratory Isolation (ROB) until 06/04/20. Exposed patients: no roomates, ROB for two weeks incubation period following exposure. This status continued regardless of new COVID test results, and will auto- on 06/04/20. 05/21/2020 05/24/2020 06/04/2020 1:24 A M EDT documented as of this encounter Care Teams Precast Worker Relationship Specialty Start Date End Date Rancho Duarte MD [address] [place] [address] [place] [address] PCP - General Internal Medicine 03/27/20 documented as of this encounter Additional Source Comments The information contained in this document represents components of the legal health record. It is not the complete legal health record.[facility]
--- OUTSIDE RECORDS SUMMARY | 2025-07-31 10:12 | XMS_ITS | Encounter Summary ---
Author Organization [facility] Address [address] [place] [address] Phone Care Team Providers Care Hydrogen Operator Name Role Phone Rancho Duarte MD Primary Care Provider [phone] Encounter Details Date Type Department Care Team (Late st Contact Info) Description 04/03/2020 Procedure [place] [facility] [place] [address] [facility], 2nd Floor, [address] [place] [address] Social History Tobacco Use Types Packs/Day Years [...] 03/31/2020 03/31/2020 0 6:05 AM EDT CoV-Exposed Comment:[facility] [place] [id number] See 05.24.20 note for detail Exposed to COIVD on 05/21/20 = Enhanced Respiratory Isolation (ROB) until 06/04/20. Exposed patients: no roomates, ROB for two weeks incubation period following exposure. This status continued regardless of new COVID test results, and will auto- on 06/04/20. 05/21/2020 05/24/2020 06/04/2020 1:24 A M EDT documented as of this encounter Care Teams Hydrogen Operator Relationship Specialty Start Date End Date Rancho Duarte MD [address] [place] [address] [place] [address] PCP - General Internal Medicine 03/27/20 documented as of this encounter Additional Source Comments The information contained in this document represents components of the legal health record. It is not the complete legal health record.[facility]
--- OUTSIDE RECORDS SUMMARY | 2025-07-31 10:12 | XMS_ITS | Encounter Summary ---
Author Organization [facility] Address [address] [facility] [address] [place] [address] Phone Care Team Providers Care Spray Cementer Name Role Phone Rancho Duarte MD Primary Care Provider [phone] Encounter Details Date Type Department Care Team (Late st Contact Info) Description 05/22/2020 Procedure Pass [facility] PERIOPER[facility]IVE DEPT [address] [place] [phone] Social History Tobacco Use Types Packs/Day Years [...] Onset Date Last Indicated Resolved Time CoV-Exposed Comment:[facility] Infection Control Unit [id number] See 05.24.20 note for detail Exposed to COIVD on 05/21/20 = Enhanced Respiratory Isolation (ROB) until 06/04/20. Exposed patients: no roomates, ROB for two weeks incubation period following exposure. This status continued regardless of new COVID test results, and will auto- on 06/04/20. 05/21/2020 05/24/2020 06/04/2020 1:24 A M EDT documented as of this encounter Care Teams Spray Cementer Relationship Specialty Start Date End Date Rancho Duarte MD [address] [place] [address] [place] [address] PCP - General Internal Medicine 03/27/20 documented as of this encounter Additional Source Comments The information contained in this document represents components of the legal health record. It is not the complete legal health record.[facility]
--- OUTSIDE RECORDS SUMMARY | 2025-07-31 10:12 | XMS_ITS | Encounter Summary ---
Author Organization [facility] Address [address] [place] [address] Phone Care Team Providers Care Manager Line Name Role Phone Rancho Duarte MD Primary Care Provider [phone] Encounter Details Date Type Department Care Team (Late st Contact Info) Description 04/03/2020 [place] [facility] [place] [address] [facility], 2nd Floor, [address] [place] [address] Social History Tobacco Use Types Packs/Day Years [...] 03/31/2020 03/31/2020 0 6:05 AM EDT CoV-Exposed Comment[place] [place] [id number] See 05.24.20 note for detail Exposed to COIVD on 05/21/20 = Enhanced Respiratory Isolation (ROB) until 06/04/20. Exposed patients: no roomates, ROB for two weeks incubation period following exposure. This status continued regardless of new COVID test results, and will auto- on 06/04/20. 05/21/2020 05/24/2020 06/04/2020 1:24 A M EDT documented as of this encounter Care Teams Manager Line Relationship Specialty Start Date End Date Rancho Duarte MD [address] [place] [address] [place] [address] PCP - General Internal Medicine 03/27/20 documented as of this encounter Additional Source Comments The information contained in this document represents components of the legal health record. It is not the complete legal health record.[facility]
--- OUTSIDE RECORDS SUMMARY | 2025-07-31 10:12 | XMS_ITS | Encounter Summary ---
Author Organization [facility] Address [address] [facility] [address] [place] [address] Phone Care Team Providers Care Flying Teacher Name Role Phone Rancho Duarte MD Primary Care Provider [phone] Encounter Details Date Type Department Care Team (Late st Contact Info) Description 05/13/2020 Procedure Pass [facility] [place] PERIOPER[place]IVE DEPT [address] [place] [phone] Social History Tobacco Use Types Packs/Day Years [...] Date Last Indicated Resolved Time CoV-Exposed Comment:[facility] [place] Infection Control Unit [id number] See 05.24.20 note for detail Exposed to COIVD on 05/21/20 = Enhanced Respiratory Isolation (ROB) until 06/04/20. Exposed patients: no roomates, ROB for two weeks incubation period following exposure. This status continued regardless of new COVID test results, and will auto- on 06/04/20. 05/21/2020 05/24/2020 06/04/2020 1:24 A M EDT documented as of this encounter Care Teams Flying Teacher Relationship Specialty Start Date End Date Rancho Duarte MD [address] [place] [address] [place] [address] PCP - General Internal Medicine 03/27/20 documented as of this encounter Additional Source Comments The information contained in this document represents components of the legal health record. It is not the complete legal health record.[facility]
--- OUTSIDE RECORDS SUMMARY | 2025-07-31 10:12 | XMS_ITS | Encounter Summary ---
Author Organization [facility] Address [address] [facility] [address] [place] [address] Phone Care Team Providers Care Door Liner Helper Name Role Phone Rancho Duarte MD Primary Care Provider [phone] Encounter Details Date Type Department Care Team (Late st Contact Info) Description 05/17/2020 Procedure Pass [facility] [place] [address] [place] [address] Social History Tobacco Use Types Packs/Day Years [...] Onset Date Last Indicated Resolved Time CoV-Exposed Comment:[facility] [place] [id number] See 05.24.20 note for detail Exposed to COIVD on 05/21/20 = Enhanced Respiratory Isolation (ROB) until 06/04/20. Exposed patients: no roomates, ROB for two weeks incubation period following exposure. This status continued regardless of new COVID test results, and will auto- on 06/04/20. 05/21/2020 05/24/2020 06/04/2020 1:24 A M EDT documented as of this encounter Care Teams Door Liner Helper Relationship Specialty Start Date End Date Rancho Duarte MD [address] [place] [address] [place] [address] PCP - General Internal Medicine 03/27/20 documented as of this encounter Additional Source Comments The information contained in this document represents components of the legal health record. It is not the complete legal health record.[facility]
--- OUTSIDE RECORDS SUMMARY | 2025-07-31 10:12 | XMS_ITS | Encounter Summary ---
Author Organization [facility] Address [address] [facility] [address] [place] [address] Phone Care Team Providers Care Production Control Manager Name Role Phone Rancho Duarte MD Primary Care Provider [phone] Encounter Details Date Type Department Care Team (Late st Contact Info) Description 04/01/2020 Procedure Pass [facility] [place] [address] [place] [address] Social History Tobacco Use Types Packs/Day Years [...] 03/31/2020 0 6:05 AM EDT CoV-Exposed Comment:[facility] [place] [id number] See 05.24.20 note for detail Exposed to COIVD on 05/21/20 = Enhanced Respiratory Isolation (ROB) until 06/04/20. Exposed patients: no roomates, ROB for two weeks incubation period following exposure. This status continued regardless of new COVID test results, and will auto- on 06/04/20. 05/21/2020 05/24/2020 06/04/2020 1:24 A M EDT documented as of this encounter Care Teams Production Control Manager Relationship Specialty Start Date End Date Rancho Duarte MD [address] [place] [address] [place] [address] PCP - General Internal Medicine 03/27/20 documented as of this encounter Additional Source Comments The information contained in this document represents components of the legal health record. It is not the complete legal health record.[facility]
--- OUTSIDE RECORDS SUMMARY | 2025-07-31 10:12 | XMS_ITS | Encounter Summary ---
Author Organization [facility] Address [address] [facility] [address] [place] [address] Phone Care Team Providers Care Metal Model Builder Name Role Phone Rancho Duarte MD Primary Care Provider [phone] Encounter Details Date Type Department Care Team (Late st Contact Info) Description 04/03/2020 Procedure Pass [facility] [address] [place] [phone] Social History Tobacco Use Types Packs/Day Years [...] 03/31/2020 03/31/2020 0 6:05 AM EDT CoV-Exposed Comment:[facility] [id number] See 05.24.20 note for detail Exposed to COIVD on 05/21/20 = Enhanced Respiratory Isolation (ROB) until 06/04/20. Exposed patients: no roomates, ROB for two weeks incubation period following exposure. This status continued regardless of new COVID test results, and will auto- on 06/04/20. 05/21/2020 05/24/2020 06/04/2020 1:24 A M EDT documented as of this encounter Care Teams Metal Model Builder Relationship Specialty Start Date End Date Rancho Duarte MD [address] [place] [address] [place] [address] PCP - General Internal Medicine 03/27/20 documented as of this encounter Additional Source Comments The information contained in this document represents components of the legal health record. It is not the complete legal health record.[facility]
[2025-07-31 13:18] LABS: MANUAL DIFF FLAG NO
[2025-07-31 13:40] LABS: Hematocrit 43.6 % (37.0-47.0); Hemoglobin 13.7 g/dl (12.0-16.0); Imm Gran Abs Auto 0.04 X10*3/uL (0.00-0.03); Imm Gran Pct Auto 0.5 % (0.0-0.4); Lymphocytes Absolute Auto 1.2 X10*3/uL (1.2-4.9); Mean Corpuscular HGB Conc 31.4 g/dl (31.0-35.0); Mean Corpuscular Hemoglobin 28.0 pg (27.0-33.0); Mean Corpuscular Volume 89.0 fL (80.0-98.0); NRBC Abs Auto 0.000 X10*3/uL (0.0-0.012); NRBC Pct Auto 0.0 /100WBC (0.0-0.2); Platelet Count 248 X10*3/uL (160-400); Red Blood Count 4.90 X10*6/uL (4.20-5.50); White Blood Count 8.0 X10*3/uL (4.8-10.8)
[2025-07-31 13:47] LABS: Total Hemoglobin (HGBA1C) 3547.2797 umol/L
[2025-07-31 13:49] LABS: Appearance Urine Clear; Glucose Urine UA 500 mg/dL (Negative); PH 7.0 (5.0-9.0); Specific Gravity - Urine 1.020 (1.005-1.025); UMIC TRIGGER UACC YES
[2025-07-31 14:29] LABS: Other Crystals Urine Present
[2025-07-31 14:37] LABS: Folate 11.7 ng/mL (> or = 4.0); Vitamin B12 410 pg/mL (200-900)
[2025-07-31 14:58] LABS: Alanine Aminotransferase 15 U/L (0-31); Albumin Level 3.0 g/dL (3.5-5.0); Alkaline Phosphatase 88 U/L (39-117); Anion Gap 11 (12-20); Aspartate Amino Transferase 19 U/L (5-31); Blood Urea Nitrogen 20 mg/dL (9-16); Calcium 8.7 mg/dL (8.4-10.2); Carbon Dioxide 25 mmol/L (22-29); Chloride 113 mmol/L (96-108); Cholesterol 197 mg/dL (<200); Estimated Glomerular Filt Rate 39; HDL Cholesterol 46 mg/dL (>40); Potassium 3.7 mmol/L (3.3-5.1); Sodium 145 mmol/L (135-145); Total Protein 5.9 g/dL (6.5-8.0); Triglycerides 208 mg/dL (<150)
[2025-07-31 15:25] LABS: Digoxin 0.9 ng/mL (0.8-2.0)
== END 2025-07-31 09:24 | disposition home or self-care (01) ==
LOC: HO.HMGCLDS 09:23
PROVIDERS: Physician Assistant; PCP Internal Medicine; Visit Provider Internal Medicine
DX: Z51.81 Encounter for therapeutic drug level monitoring (principal); I11.0 Hypertensive heart disease with heart failure; I50.20 Unspecified systolic (congestive) heart failure; I42.9 Cardiomyopathy, unspecified; I25.10 Atherosclerotic heart disease of native coronary artery without angina pectoris; I25.5 Ischemic cardiomyopathy; D64.9 Anemia, unspecified; E78.00 Pure hypercholesterolemia, unspecified; E11.9 Type 2 diabetes mellitus without complications; E55.9 Vitamin D deficiency, unspecified; E53.8 Deficiency of other specified B group vitamins
CPT/HCPCS: 36415; 80048; 80053; 80061; 80162; 81001; 81003; 82043; 82306; 82570; 82607; 82746; 83036; 83880; 84443; 84681; 85025; 86341

== ENCOUNTER 2025-08-09 10:28 | Outpatient (AMB) | payer MEDICARE, SELFPAY ==
--- NOTE | 2025-08-09 10:33 | MHC.PC.OV ---
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 Cook Required: No Accompanied by: Self / Same As Patient Allergies No Known Allergies Allergy (Verified 08/09/25 11:23) Medication List - Last Reconciled 08/09/25 by Declan Arriaga MD acetaminophen 1,000 mg PO Q6H PRN albuterol sulfate 90 mcg/actuation 1 puff PO QID PRN amlodipine 10 mg PO DAILY apixaban (Eliquis) 5 mg PO BID atorvastatin 80 mg PO DAILY blood sugar diagnostic (FreeStyle Lite Strips) Use 1 test strip three times a day blood-glucose meter (FreeStyle Lite Meter kit) As directed carvedilol 25 mg See Protocol PO BID digoxin 0.125 mg See Protocol PO DAILY ergocalciferol (vitamin D2) (Vitamin D2) 1,250 mcg PO SA furosemide (Lasix) 20 mg PO QAM gabapentin 300 mg PO BID hydroxyzine pamoate 25 mg PO BID hydroxyzine pamoate 25 mg PO DAILY@1200 PRN insulin NPH isoph U-100 human (Novolin N FlexPen) 15 units subcut DAILY lancets (FreeStyle Lancets) Test 3 times daily melatonin 3 mg PO BEDTIME metformin 500 mg PO DAILY cgdhrazi-zza-kofljoy sulfate 4.5 mg iron (One Daily Multivitamins with Minerals) 1 tab PO DAILY pantoprazole 40 mg PO DAILY@0630 pen needle, diabetic (BD Ultra-Fine Gi Pen Needle) As directed pyridoxine (vitamin B6) 100 mg PO DAILY 90 days sacubitril-valsartan 24-26 mg (Entresto) 1 tab See Protocol PO BID sertraline 25 mg PO DAILY sertraline 100 mg PO DAILY Tobacco use date assessed: 08/09/25 Dental Screening Dental Screen Date: 08/09/25 Did you have a dental visit in the last 12 months?: No Did you have a dental problem in the last 6 months where you did not have access to dental care?: No Was dental information given to patient?: No HPI DM HPI Details Patient comes in today for her follow-up visit States that she has an ulcer on her right foot for at least couple of months now She went to the walk-in clinic a couple of weeks ago for the same complaint Was sent for x-rays of the right foot to r/o osteomyelitis - x-rays came out negative States that she feels okay otherwise She denies any headaches or dizziness; denies any fever Denies any chest pains, no increased shortness of breath No nausea/vomiting, no abdominal pain No change in bowel habits noted Needs a few of her Rx refilled She had her follow up labs done last week - to discuss her results [facility] Medical History Patellofemoral arthritis of left knee Primary osteoarthritis of hips, bilateral Smoker Essential hypertension Persistent atrial fibrillation Ischemic cardiomyopathy Mixed hyperlipidemia Chronic kidney disease (CKD), stage III (moderate) Contraindication to percutaneous coronary intervention (PCI) PAF (paroxysmal atrial fibrillation) 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 Myocardial infarction COVID-19 vaccine series completed Nephrolithiasis Type 2 diabetes mellitus with morbid obesity Obesity (BMI 30-39.9) Depression Vitamin D deficiency GERD without esophagitis Coronary artery disease Benign essential hypertension Pure hypercholesterolemia Intertrigo 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 Necrotizing fasciitis Surgical History History of cardiac catheterization History of surgery History of surgery Hx of cystoscopy History of breast lump/mass excision (~03/2017) History of heart artery stent (~09/2015) History of arthroscopy of left knee (~12/2011) Family History Father Alzheimer's dementia Social History Household Members: None Household Members Other:: lives alone Housing: Apartment Do you presently have visiting nurse or other home services: No Alcohol intake: former Patient Tobacco Use Status: Tobacco use Unknown Tobacco use type: Cigarette Cigarette Packs Per Day: 0.5 Cigarettes Per Day: 16 Years Smoked: 30 +/- e-Cigarette/Vaping Use: Currently Using Second Hand Smoke Exposure: No Substance Use Type: Marijuana Advance Directives Date on File: 07/23/22 service: No Current occupational status: disabled Cognitive needs: No Hearing needs: No Vision needs: Yes Questionnaire Thrive Questionnaire Date Thrive assessed: 06/08/25 I am a: Patient What is your living situation today?: I have a steady place to live Within the past 12 months, did the food you bought not last and you didn't have the money to get more?: Often true Within the past 12 months, did you worry whether your food would run out before you got money to buy more?: Often true Do you have trouble paying for medicines?: Yes Do you have trouble getting transportation to medical appointments?: No Do you have trouble paying your heating and electricity bill?: No Do you have trouble taking care of your child, family member or friend?: No Do you have trouble with day-to-day activities such as bathing, preparing meals, shopping, managing finances, etc.?: No Are you currently unemployed and looking for a job?: I choose not to answer this question Are you interested in more education?: No Currently or been in a relationship where the following occur: I choose not to answer THRIVE Score: 2 AUDIT C Alcohol Use Questionnaire (AUDIT-C) 1. How often do you have a drink containing alcohol?: Never 3. How often do you have six or more drinks on one occasion?: Never Total Score: 0 Score Reviewed/Action Taken: Yes SAJAN-7 AMB Questionnaire SAJAN-7 Date SAJAN - 7 assessed: 03/29/25 Source: Developed by Drs. Bhavin Sanchez, Shelby Ordonez, Raymond Mcleod and colleagues, with an educational wicho from [employer]. Review of Systems Const Denies chills, Reports fatigue, Denies fever(s) and Denies headache(s) ENT Denies dysphagia, Denies dizziness, Denies otalgia, Denies headache(s), Denies neck pain, Denies odynophagia and Denies sore throat Card Denies chest pain, Denies palpitations and Reports dyspnea on exertion (mild) Resp Denies chest congestion, Denies cough and Reports dyspnea on exertion (mild) GI Denies abdominal pain, Denies constipation, Denies dysphagia, Denies heartburn, Denies diarrhea, Denies nausea, Denies odynophagia and Denies vomiting Denies difficulty voiding, Denies nocturia and Denies dysuria Musc Denies back pain and Denies neck pain Skin/Breast Denies rash Neuro Denies dizziness and Denies headache(s) Endo Reports fatigue and Denies palpitations Physical exam (Primary Care) Vital Signs: Last Vital Signs Pulse 96 08/09/25 10:34 BP 140/82 H 08/09/25 10:34 Pulse Ox 97 08/09/25 10:34 Oxygen Delivery Method Room Air 08/09/25 10:34 BMI result Body Mass Index 35.6 Tobacco/Smoking Status: Tobacco use Status Tobacco use date assessed 08/09/25 08/09/25 10:35 Patient Tobacco Use Status Tobacco use Unknown 08/09/25 10:35 Tobacco use type Cigarette 08/09/25 10:35 e-Cigarette/Vaping Use Currently Using 08/09/25 10:35 Thrive Assessment: Date of Thrive Assessment Date Thrive assessed 06/08/25 08/09/25 10:35 Currently or been in a relationship where the following occur: I choose not to answer Const General: no acute distress and alert HENMT Ears: TM's normal bilaterally and EAC's normal Throat: Yes posterior oropharynx normal and Yes tonsils normal (no TP congestion) Neck Neck: Yes supple and No lymphadenopathy Thyroid: Thyroid normal Resp Auscultation: clear to auscultation bilaterally, no rales and no wheezes Cardio Rate: regular rate Rhythm: abnormal rhythm irregularly irregular Heart sounds: no murmurs GI Palpation (GI): Soft to palpation and nontender Auscultation: normal bowel sounds General: Yes no CVA tenderness Back/Spine/Pelvis Back: no CVA tenderness Thoracic/Lumbar Spine: No lumbar spinal tenderness Skin Rashes: no rashes Extrem General: Yes no clubbing, cyanosis or edema Right lower extremity: foot ((+) ulcer on the ball of the foot - no active drainage noted) Results Reviewed Results Reviewed: Laboratory Tests 07/31/25 07/31/25 09:46 09:55 WBC 8.0 Hgb 13.7 Hct 43.6 Plt Count 248 Sodium 145 Potassium 3.7 Creatinine 1.39 Estimated GFR 39 Fasting Glucose 254 H Hemoglobin A1c % 9.8 H C-Peptide 6.24 H Calcium 8.7 AST 19 ALT 15 NT-Pro-B Natriuret Pep 6092.9 H Total Protein 5.9 L Albumin 3.0 L Triglycerides 208 H Cholesterol 197 LDL Cholesterol, Calc 110 H HDL Cholesterol 46 Vitamin B12 410 25-OH Vitamin D Total 24.1 L TSH 1.27 Ur Specific [place] 1.020 Urine Protein 300 (3+) H Urine Glucose (UA) 500 H Urine Blood Small (1+) H Urine Nitrite Negative Ur Leukocyte Esterase Negative Microalb/Creat Ratio 3156.5 H Coding Level of Care Code Est Pt Level 4 (68362) Diagnoses Ulcer of right foot, unspecified ulcer stage L97.519 Non-pressure ulcer stage: unspecified non-pressure ulcer stage Coronary artery disease involving [place] coronary artery of [place] heart without angina pectoris I25.10 Coronary Disease-Associated Artery/Lesion type: [place] artery [place] vs. transplanted heart: [place] heart Associated angina: without angina Ischemic cardiomyopathy I25.5 Persistent atrial fibrillation I48.19 Essential hypertension I10 Type 2 diabetes mellitus with stage 3b chronic kidney disease, with long-term current use of insulin E11.22; N18.32; Z79.4 Diabetes mellitus group home insulin use: with intermission coordinator use Chronic kidney disease stage: stage 3 (moderate) Chronic kidney disease stage 3 subtype: stage 3b (GFR 30-44) Stage 3b chronic kidney disease N18.32 Chronic kidney disease stage 3 subtype: stage 3b (GFR 30-44) Mixed hyperlipidemia E78.2 GERD without esophagitis K21.9 Hypokalemia E87.6 Vitamin D deficiency E55.9 Episode of recurrent major depressive disorder, unspecified depression episode severity F33.9 Depression Type: major depressive disorder Major depression recurrence: recurrent Active/Remission status: currently active Major depression episode severity: unspecified Smoker F17.200 Obesity (BMI 30-39.9) E66.9 Assessment & Plan Assessment & Plan (1) Foot ulcer, right: Code(s): L97.519 - Non-pressure chronic ulcer of other part of right foot with unspecified severity Category: Medical Qualifiers: Non-pressure ulcer stage: unspecified non-pressure ulcer stage Qualified Code(s): L97.519 - Non-pressure chronic ulcer of other part of right foot with unspecified severity Plan: X-rays of the right foot done a couple of weeks ago was negative for any evidence of osteomyelitis Will refer her to the wound clinic for further management of her right foot ulcer (2) Coronary artery disease: Comment: S/P anterior wall AK in 2014 - resulting in LAD stenting; S/P cardiac catheterization x 2 in 2024, with restenting of the LAD on 01/05/2025 and staged PCI to the RCA (DARLENE to mid-RCA) on 02/08/2025 Code(s): I25.10 - Atherosclerotic heart disease of [place] coronary artery without angina pectoris Category: Medical Qualifiers: Coronary Disease-Associated Artery/Lesion type: [place] artery [place] vs. transplanted heart: [place] heart Associated angina: without angina Qualified Code(s): I25.10 - Atherosclerotic heart disease of [place] coronary artery without angina pectoris Plan: S/P anterior wall AK in 2014, resulting in stenting of LAD S/P cardiac catheterization x 2 in 2024, with restenting of the LAD on 01/05/2025 and staged PCI to the RCA (DARLENE to mid-RCA) on 02/08/2025 Continue Clopidogrel 75 mg QD; Aspirin 81 mg QD was stopped by Dr. Matat following her most recent cardiac catheterization in 01/2025 Follow up with cardiology as scheduled (3) Ischemic cardiomyopathy: Code(s): I25.5 - Ischemic cardiomyopathy Category: Medical Plan: Patient's most recent echocardiogram done on 11/20/2024 revealed moderately reduced LV ejection fraction with LVEF of 35-40% with underlying regional wall motion abnormality, severely dilated left atrium, mild aortic stenosis and regurgitation and normal measured RV systolic pressure with significantly elevated right atrial pressures She is currently classified as NYHA Class II heart failure Continue Entresto 24-26 mg BID, Carvedilol 25 mg BID, Digoxin 0.125 mg QD and Bumetanide 2 mg QD States that her cardiac symptoms have improved somewhat with cardiac rehab Follow up with cardiology as scheduled (4) Persistent atrial fibrillation: Code(s): I48.19 - Other persistent atrial fibrillation Category: Medical Plan: Patient currently remains in atrial fibrillation but rate is controlled Continue Eliquis 5 mg BID for full anticoagulation Continue Digoxin 0.125 mg QD and Carvedilol 25 mg BID (5) Essential hypertension: Code(s): I10 - Essential (primary) hypertension Category: Medical Plan: Reinforced low sodium diet - goal is systolic BP of at least 120 to 130 mm or less Continue Amlodipine 10 mg QD, Carvedilol 25 mg BID and Entresto 24-26 mg BID (6) Type 2 diabetes mellitus with diabetic chronic kidney disease: Code(s): E11.22 - Type 2 diabetes mellitus with diabetic chronic kidney disease Category: Medical Qualifiers: Diabetes mellitus intermission coordinator insulin use: with group home use Chronic kidney disease stage: stage 3 (moderate) Chronic kidney disease stage 3 subtype: stage 3b (GFR 30-44) Qualified Code(s): E11.22 - Type 2 diabetes mellitus with diabetic chronic kidney disease; N18.32 - Chronic kidney disease, stage 3b; 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 Plan: Her HgbA1c was at 9.8% on her labs done last week (in-office HgbA1c was previously at 14.0% a few months ago) - goal is at least <7.0% Reinforced diabetic diet Continue NPH Insulin 15 units Q AM and Metformin 500 mg Q PM Follow up with endocrinology as scheduled (7) Chronic kidney disease (CKD), stage III (moderate): Code(s): N18.30 - Chronic kidney disease, stage 3 unspecified Category: Medical Qualifiers: Chronic kidney disease stage 3 subtype: stage 3b (GFR 30-44) Qualified Code(s): N18.32 - Chronic kidney disease, stage 3b Plan: Patient's most recent lab results places her in stage 3b CKD Have advised her that strict control of her blood pressure and blood sugar will help stabilize her renal function Will continue to monitor her renal function closely and if this progresses, will refer to nephrology for co-management (8) Mixed hyperlipidemia: Code(s): E78.2 - Mixed hyperlipidemia Category: Medical Plan: Results of her labs done last week reviewed and discussed with patient Reinforced low cholesterol diet Continue Atorvastatin 80 mg QD Will have patient recheck her labs and fasting lipids in 3 months for follow up (9) GERD without esophagitis: Code(s): K21.9 - Gastro-esophageal reflux disease without esophagitis Category: Medical Plan: Dietary restrictions in GERD reinforced Continue Omeprazole 40 mg QD (10) Hypokalemia: Code(s): E87.6 - Hypokalemia Category: Medical Plan: Her potassium level was still low normal on her recent labs Will start her on Potassium Chloride ER 20 meq QD (11) Vitamin D deficiency: Code(s): E55.9 - Vitamin D deficiency, unspecified Category: Medical Plan: Continue Vitamin D2 1250 mcg once a week (12) Depression: Comment: same rx Code(s): F32.9 - Major depressive disorder, single episode, unspecified Category: Medical Qualifiers: Depression Type: major depressive disorder Major depression recurrence: recurrent Active/Remission status: currently active Major depression episode severity: unspecified Qualified Code(s): F33.9 - Major depressive disorder, recurrent, unspecified Plan: Continue Sertraline 100 mg QD (13) Smoker: Code(s): F17.200 - Nicotine dependence, unspecified, uncomplicated Category: Social Hx Plan: Patient unfortunately continues to smoke despite her CAD and cardiomyopathy Have counseled patient again today on complete smoking cessation (14) Obesity (BMI 30-39.9): Comment: see above Code(s): E66.9 - Obesity, unspecified Category: Medical Plan: Reinforced diet' exercise and weight loss are unrealistic at present given patient's functional status and multiple comorbidities Plan Follow up in 3 months Orders: Orders Lipid Panel 3 Months E78.00 - Pure hypercholesterolemia, unspecified Comprehensive Independence. Panel Fast 3 Months E78.00 - Pure hypercholesterolemia, unspecified UA CC w/rflx Micro + Cult 3 Months R30.0 - Dysuria TSH reflex Free T4 3 Months E78.00 - Pure hypercholesterolemia, unspecified Vitamin D 25-OH Total 3 Months E55.9 - Vitamin D deficiency, unspecified Hemoglobin A1c 3 Months E11.9 - Type 2 diabetes mellitus without complications Complete Blood Count Auto Diff 3 Months D64.9 - Anemia, unspecified NT Pro B Type Natriuretic Pept 3 Months R06.09 - Other forms of dyspnea Vitamin B12 and Folate 3 Months E53.8 - Deficiency of other specified B group vitamins Referrals Wound Care Referral E11.8 - Type 2 diabetes mellitus with unspecified complications, L97.519 - Non-pressure chronic ulcer of other part of right foot with unspecified severity Medications: New cholecalciferol (vitamin D3) 50 mcg PO DAILY 90 caps 3RF 90 days E55.9 - Vitamin D deficiency, unspecified potassium chloride ER (Klor-Con M) 20 mEq PO DAILY 30 tabs 3RF hypokalemia 30 days Changed From pen needle, diabetic (BD Ultra-Fine Gi Pen Needle) As directed 50 ea 8RF E11.8 - Type 2 diabetes mellitus with unspecified complications To pen needle, diabetic As directed once a day 100 ea 3RF E11.8 - Type 2 diabetes mellitus with unspecified complications From furosemide (Lasix) 20 mg PO QAM 5 tabs 0RF To furosemide 40 mg PO QAM PRN 30 tabs 0RF edema 30 days
[2025-08-09 10:34] VITALS: BP 140/82; PULSE 96; O2SAT 97; BMI 35.6
== END 2025-08-09 11:44 | disposition home or self-care (01) ==
LOC: HO.HMCH 10:28
PROVIDERS: PCP Internal Medicine; Visit Provider Internal Medicine
DX: L97.519 Non-pressure chronic ulcer of other part of right foot with unspecified severity (principal); I25.10 Atherosclerotic heart disease of native coronary artery without angina pectoris; I25.5 Ischemic cardiomyopathy; I48.19 Other persistent atrial fibrillation; I10 Essential (primary) hypertension; E11.22 Type 2 diabetes mellitus with diabetic chronic kidney disease; N18.32 Chronic kidney disease, stage 3b; Z79.4 Long term (current) use of insulin; E78.2 Mixed hyperlipidemia; K21.9 Gastro-esophageal reflux disease without esophagitis; E87.6 Hypokalemia; E55.9 Vitamin D deficiency, unspecified; F33.9 Major depressive disorder, recurrent, unspecified; F17.200 Nicotine dependence, unspecified, uncomplicated; E66.9 Obesity, unspecified

== ENCOUNTER → 2025-08-09 10:28 | Outpatient (BNVA) | payer MEDICARE, SELFPAY | PROVIDERS: PCP Internal Medicine; Visit Provider Internal Medicine | DX: L97.519 Non-pressure chronic ulcer of other part of right foot with unspecified severity (principal); I25.10 Atherosclerotic heart disease of native coronary artery without angina pectoris; I25.5 Ischemic cardiomyopathy; I48.19 Other persistent atrial fibrillation; I12.9 Hypertensive chronic kidney disease with stage 1 through stage 4 chronic kidney disease, or unspecified chronic kidney disease; E11.22 Type 2 diabetes mellitus with diabetic chronic kidney disease; N18.32 Chronic kidney disease, stage 3b; E78.2 Mixed hyperlipidemia; K21.9 Gastro-esophageal reflux disease without esophagitis; E87.6 Hypokalemia; E55.9 Vitamin D deficiency, unspecified; F33.9 Major depressive disorder, recurrent, unspecified; F17.200 Nicotine dependence, unspecified, uncomplicated; E66.9 Obesity, unspecified; I25.2 Old myocardial infarction; Z79.01 Long term (current) use of anticoagulants; Z79.4 Long term (current) use of insulin; Z79.82 Long term (current) use of aspirin; Z79.899 Other long term (current) drug therapy | CPT/HCPCS: 99212 ==

== ENCOUNTER 2025-08-30 12:28 | Outpatient (AMB) | payer MEDICARE, SELFPAY ==
[2025-08-30 12:50] VITALS: BP 138/80; PULSE 73; BMI 32.5
--- NOTE | 2025-08-30 12:50 | A.OFFVIS_ITS ---
Vital Signs 08/30/25 12:50 Height 5 ft 3 in Weight 183 lb 6.793 oz BMI 32.5 BP 138/80 Blood Pressure Location Lt brachial Position Sitting Pulse 73 Pulse Source Pulse Oximeter Intake Visit Reasons: f/up labs/ echo Mash Grinder Required: No Accompanied by: Self / Same As Patient Allergies No Known Allergies Allergy (Verified 08/30/25 12:53) Medication List - Last Reconciled 08/30/25 by Cortez Montemayor NP acetaminophen 1,000 mg PO Q6H PRN albuterol sulfate 90 mcg/actuation 1 puff PO QID PRN amlodipine 10 mg PO DAILY apixaban (Eliquis) 5 mg PO BID atorvastatin 80 mg PO DAILY blood sugar diagnostic (FreeStyle Lite Strips) Use 1 test strip three times a day blood-glucose meter (FreeStyle Lite Meter kit) As directed carvedilol 25 mg See Protocol PO BID cholecalciferol (vitamin D3) 50 mcg PO DAILY 90 days digoxin 0.125 mg See Protocol PO DAILY ergocalciferol (vitamin D2) (Vitamin D2) 1,250 mcg PO SA furosemide 40 mg PO QAM PRN 30 days hydroxyzine pamoate 25 mg PO BID hydroxyzine pamoate 25 mg PO DAILY@1200 PRN insulin NPH isoph U-100 human (Novolin N FlexPen) 15 units subcut DAILY lancets (FreeStyle Lancets) Test 3 times daily melatonin 3 mg PO BEDTIME metformin 500 mg PO DAILY [id number] sulfate 4.5 mg iron (One Daily Multivitamins with Minerals) 1 tab PO DAILY pantoprazole 40 mg PO DAILY@0630 pen needle, diabetic As directed once a day potassium chloride ER (Klor-Con M) 20 mEq PO DAILY 30 days pyridoxine (vitamin B6) 100 mg PO DAILY 90 days sacubitril-valsartan 24-26 mg (Entresto) 1 tab See Protocol PO BID sertraline 25 mg PO DAILY sertraline 100 mg PO DAILY HPI Comments Details: This is a 54-year-old female patient coming in for a follow-up visit. Patient also with a history of hypertension, ischemic cardiomyopathy, diabetes, hyperlipidemia, smoker, obesity, and coronary artery disease with prior LAD stent in 2014 and and then PCI to LAD and RCA in December and January of 2025 respectively. Since our last visit, patient was in the hospital once for shortness of breath and was treated for acute acute hypoxic respiratory failure due to acute exacerbation of heart failure in the setting of hypertensive urgency. Today, patient reports feeling well overall without any cardiac symptoms of exertional chest pain, shortness breath, palpitations, dizziness, orthopnea, PND, leg edema, presyncope or syncope. Patient reports compliance with all her medications and denies any signs of bleeding. Unfortunately, patient continues to smoke cigarettes. Patient previously was smoking 3 cigarettes a day but now she says that due to recent stress, patient is now up to smoking half a pack a day. [facility] Medical History Patellofemoral arthritis of left knee Primary osteoarthritis of hips, bilateral Smoker Essential hypertension Persistent atrial fibrillation Ischemic cardiomyopathy Mixed hyperlipidemia Chronic kidney disease (CKD), stage III (moderate) Contraindication to percutaneous coronary intervention (PCI) PAF (paroxysmal atrial fibrillation) 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 Myocardial infarction COVID-19 vaccine series completed Nephrolithiasis Type 2 diabetes mellitus with morbid obesity Obesity (BMI 30-39.9) Depression Vitamin D deficiency GERD without esophagitis Coronary artery disease Benign essential hypertension Pure hypercholesterolemia Intertrigo 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 Necrotizing fasciitis Surgical History History of cardiac catheterization History of surgery History of surgery Hx of cystoscopy History of breast lump/mass excision (~03/2017) History of heart artery stent (~09/2015) History of arthroscopy of left knee (~12/2011) Family History Father Alzheimer's dementia Social History Household Members: None Household Members Other:: lives alone Housing: Apartment Do you presently have visiting nurse or other home services: No Alcohol intake: former Patient Tobacco Use Status: Tobacco use Unknown Tobacco use type: Cigarette Cigarette Packs Per Day: 0.5 Cigarettes Per Day: 16 Years Smoked: 30 +/- e-Cigarette/Vaping Use: Currently Using Second Hand Smoke Exposure: No Substance Use Type: Marijuana Advance Directives Date on File: 07/23/22 service: No Current occupational status: disabled Cognitive needs: No Hearing needs: No Vision needs: Yes Review of Systems Const Denies daytime sleepiness, Denies difficulty sleeping, Denies snoring, Denies stops breathing during sleep and Denies weakness Card Denies chest pain, Denies rapid heart rate, Denies irregular heart rhythm, Denies claudication, Denies leg edema, Denies lightheadedness, Denies palpitations, Denies dyspnea, Denies dyspnea on exertion, Denies orthopnea, Denies paroxysmal nocturnal dyspnea and Denies slow heart rate Resp Denies cough, Denies dyspnea, Denies dyspnea on exertion and Denies snoring GI Reports no additional complaints, Denies hematochezia, Denies change in stool character and Denies dyspepsia Musc Denies abnormal gait, Denies muscle weakness and Denies numbness Neuro Denies abnormal gait, Denies numbness and Denies weakness Endo Denies palpitations Physical Exam Vital Signs: Last Vital Signs Pulse 73 08/30/25 12:50 BP 138/80 08/30/25 12:50 BMI result Body Mass Index 32.5 Const General: cooperative, healthy appearing, comfortable and no acute distress Orientation/consciousness: patient oriented x3 HEENT Head: Yes normal to inspection Neck Neck: Yes normal visual inspection, Yes trachea midline and Yes supple Chest Chest palpation & inspection: normal inspection of the chest Resp Effort & Inspection: normal respiratory effort Auscultation: clear to auscultation bilaterally, no crackles, no rales, no rhonchi and no wheezes Cardio Jugular venous distension: no JVD Palpation: normal PMI Rate: regular rate Rhythm: regular rhythm Heart sounds: S1 normal heart sound present, S2 normal heart sound present, no click, no gallops, no murmurs and no rubs Peripheral pulses: Peripheral pulses 2+ throughout GI Inspection: Yes normal to inspection Palpation (GI): Soft to palpation Auscultation: normal bowel sounds Skin General skin exam: no rashes or lesions noted Neuro General: patient oriented x3 Extrem General: Yes normal to inspection, No no pedal edema and No calf tenderness Psych Appearance: grossly normal Mental Status: mental status grossly normal Speech and movement: Normal speech and movement present Assessment & Plan Assessment & Plan (1) Coronary artery disease: Comment: S/P anterior wall MN in 2014 - resulting in LAD stenting; S/P cardiac catheterization x 2 in 2024, with restenting of the LAD on 01/05/2025 and staged PCI to the RCA (DARLENE to mid-RCA) on 02/08/2025 Code(s): I25.10 - Atherosclerotic heart disease of [place] coronary artery without angina pectoris Category: Medical Qualifiers: Associated angina: without angina Coronary Disease-Associated Artery/Lesion type: [place] artery [place] vs. transplanted heart: [place] heart Qualified Code(s): I25.10 - Atherosclerotic heart disease of [place] coronary artery without angina pectoris Plan: 01/25/2025-cardiac catheterization showed 80% stenosis in the mid RCA, patent stent in the LAD with proximal ISR approximately 70%, and ostial and proximal OM2 with 70% stenosis. Successful PCI to LAD with IFR improving from 0.83-0.91. Patient then later returned for a 2nd cardiac catheterization on 02/08/2025 during which she underwent successful PCI to the RCA. 06/08/2025-echo study showed a mildly improved LV systolic function with an ejection fraction between 40-45% with regional wall motion abnormalities - hypokinetic mid inferior segment, and akinetic apical inferior, basal inferior, apical septum, mid inferoseptal, and anteroseptal segments, and also with grade 2 diastolic dysfunction. Clinically stable and euvolemic. Continue Eliquis and Plavix therapy. No reported signs of bleeding. Continue amlodipine, carvedilol, digoxin, Lasix, Entresto and atorvastatin therapy. Patient never attended cardiac rehab due to unclear reasons. Patient also has not completed her lab work which was emphasized and patient understanding of the plan. Last LDL at 63 with an goal of LDL less than 70. We will update lipid profile. (2) S/P cardiac cath: Code(s): Z98.890 - Other specified postprocedural states Category: Medical Plan: As above. (3) Afib: Code(s): I48.91 - Unspecified atrial fibrillation Category: Medical Plan: Continue Eliquis therapy for full anticoagulation. Continue carvedilol and digoxin for rate control approach. No reported signs of bleeding. We will monitor labs periodically. (4) Cardiomyopathy: Code(s): I42.9 - Cardiomyopathy, unspecified Category: Medical Plan: As above (5) Benign essential hypertension: Code(s): I10 - Essential (primary) hypertension Category: Medical Plan: Blood pressure today is well-controlled. Continue current regimen. Advised monitoring blood pressure at home with a goal of blood pressure less than 130/80. (6) Hyperlipidemia: Code(s): E78.5 - Hyperlipidemia, unspecified Category: Medical Plan: As above. (7) Type 2 diabetes mellitus with unspecified complications: Code(s): E11.8 - Type 2 diabetes mellitus with unspecified complications Category: Medical Plan: Continue aggressive diabetes management with an A1c goal less than 7%. Followed by PCP. (8) Smoking: Code(s): F17.200 - Nicotine dependence, unspecified, uncomplicated Category: Medical Plan: Currently smoking half a pack a day. Patient states that her birthday is next week and therefore is going to give herself the gift of smoking cessation which was heavily encouraged. Patient understands the risks involved with smoking wit h her cardiovascular health. Advised on heart healthy diet, regular exercise, losing weight, med compliance, and aggressive management of vascular risk factors. We will follow-up in 6 months' time. In the interim, patient will call the office with any concerns or change in symptoms. This note was generated using voice recognition software. While every effort has been made to ensure accuracy and proper retail pharmacist, there may be occasional errors that could affect the content or meaning of the described symptoms. Coding Level of Care Code Est Pt Level 4 (40210) Complex EM visit Add On G2211 Diagnoses Coronary artery disease involving [place] coronary artery of [place] heart without angina pectoris I25.10 Associated angina: without angina Coronary Disease-Associated Artery/Lesion type: [place] artery [place] vs. transplanted heart: [place] heart S/P cardiac cath Z98.890 Afib I48.91 Cardiomyopathy I42.9 Benign essential hypertension I10 Hyperlipidemia E78.5 Type 2 diabetes mellitus with unspecified complications E11.8 Smoking F17.200 Time Spent (min) 34 Comment Time spent in reviewing the chart, test results, assessment, counseling and documentation.
--- OUTSIDE RECORDS SUMMARY | 2025-08-30 15:22 | XMS_ITS | Encounter Summary ---
Author Organization [facility] Address [address] [place] [address] Phone Care Team Providers Care Corporate Logistics Manager Name Role Phone Rancho Duarte MD Primary Care Provider [phone] Encounter Details Date Type Department Care Team (Late st Contact Info) Description 03/27/2020 Procedure Pass [facility] [place] [place] [place] [address] [place] [id number] Social History Tobacco Use Types Packs/Day Years [...] 03/31/2020 03/31/2020 0 6:05 AM EDT CoV-Exposed Comment:[facility] [place] [place] [facility] [id number] See 05.24.20 note for detail Exposed to COIVD on 05/21/20 = Enhanced Respiratory Isolation (ROB) until 06/04/20. Exposed patients: no roomates, ROB for two weeks incubation period following exposure. This status continued regardless of new COVID test results, and will auto- on 06/04/20. 05/21/2020 05/24/2020 06/04/2020 1:24 A M EDT documented as of this encounter Care Teams Corporate Logistics Manager Relationship Specialty Start Date End Date Rancho Duarte MD [address] [place] [address] [place] [id number] PCP - General Internal Medicine 03/27/20 documented as of this encounter Additional Source Comments The information contained in this document represents components of the legal health record. It is not the complete legal health record.[facility]
--- OUTSIDE RECORDS SUMMARY | 2025-08-30 15:22 | XMS_ITS | Encounter Summary ---
Author Organization [facility] Address [address] [place] [address] Phone Care Team Providers Care Technical Agronomist Name Role Phone Rancho Duarte MD Primary Care Provider Encounter Details Date Type Department Care Team (Late st Contact Info) Description 03/29/2020 Procedure Pass [facility] [place] PERI[facility]IVE [facility]PT [address] [place] [phone] Social History Tobacco Use Types Packs/Day Years [...] 03/31/2020 03/31/2020 0 6:05 AM EDT CoV-Exposed Comment:[facility] Infection Control Unit [id number] See 05.24.20 note for detail Exposed to COIVD on 05/21/20 = Enhanced Respiratory Isolation (ROB) until 06/04/20. Exposed patients: no roomates, ROB for two weeks incubation period following exposure. This status continued regardless of new COVID test results, and will auto- on 06/04/20. 05/21/2020 05/24/2020 06/04/2020 1:24 A M EDT documented as of this encounter Care Teams Technical Agronomist Relationship Specialty Start Date End Date Rancho Duarte MD [address] [place] [address] [place] [id number] PCP - General Internal Medicine 03/27/20 documented as of this encounter Additional Source Comments The information contained in this document represents components of the legal health record. It is not the complete legal health record.[facility]
--- OUTSIDE RECORDS SUMMARY | 2025-08-30 15:22 | XMS_ITS | Encounter Summary ---
Author Organization [facility] Address [address] [place] [address] [place] [address] Phone Care Team Providers Care Tire Groover Name Role Phone Rancho Duarte MD Primary Care Provider Encounter Details Date Type Department Care Team (Late st Contact Info) Description 04/29/2020 Procedure Pass [facility] [place] [address] [place] [phone] Social History Tobacco Use Types Packs/Day Years [...] Last Indicated Resolved Time CoV-Exposed Comment:[facility] [place] [place] [id number] See 05.24.20 note for detail Exposed to COIVD on 05/21/20 = Enhanced Respiratory Isolation (ROB) until 06/04/20. Exposed patients: no roomates, ROB for two weeks incubation period following exposure. This status continued regardless of new COVID test results, and will auto- on 06/04/20. 05/21/2020 05/24/2020 06/04/2020 1:24 A M EDT documented as of this encounter Care Teams Tire Groover Relationship Specialty Start Date End Date Rancho Duarte MD [address] [place] [address] [place] [id number] PCP - General Internal Medicine 03/27/20 documented as of this encounter Additional Source Comments The information contained in this document represents components of the legal health record. It is not the complete legal health record.[facility]
--- OUTSIDE RECORDS SUMMARY | 2025-08-30 15:22 | XMS_ITS | Encounter Summary ---
Author Organization [facility] Address [address] [place] [address] [place] [address] Phone Care Team Providers Care Inspector Heating And Refrigeration Name Role Phone Rancho Duarte MD Primary Care Provider [phone] Encounter Details Date Type Department Care Team (Late st Contact Info) Description 05/08/2020 Procedure Pass [facility] [address] [place] [phone] Social History Tobacco Use Types Packs/Day Years [...] Onset Date Last Indicated Resolved Time CoV-Exposed Comment:[facility] [place] [facility] [id number] See 05.24.20 note for detail Exposed to COIVD on 05/21/20 = Enhanced Respiratory Isolation (ROB) until 06/04/20. Exposed patients: no roomates, ROB for two weeks incubation period following exposure. This status continued regardless of new COVID test results, and will auto- on 06/04/20. 05/21/2020 05/24/2020 06/04/2020 1:24 A M EDT documented as of this encounter Care Teams Inspector Heating And Refrigeration Relationship Specialty Start Date End Date Rancho Duarte MD [address] [place] [address] [place] [id number] PCP - General Internal Medicine 03/27/20 documented as of this encounter Additional Source Comments The information contained in this document represents components of the legal health record. It is not the complete legal health record.[facility]
--- OUTSIDE RECORDS SUMMARY | 2025-08-30 15:22 | XMS_ITS | Encounter Summary ---
Author Organization [facility] Address [address] [place] [address] [place] [address] Phone Care Team Providers Care Film Printer Name Role Phone Rancho Duarte MD Primary Care Provider [phone] Encounter Details Date Type Department Care Team (Late st Contact Info) Description 05/02/2020 Procedure Pass [facility] [place] PER[place] [place]PT [address] [place] [phone] Social History Tobacco Use Types Packs/Day Years [...] Onset Date Last Indicated Resolved Time CoV-Exposed Comment:[facility] Infection Control Unit [id number] See 05.24.20 note for detail Exposed to COIVD on 05/21/20 = Enhanced Respiratory Isolation (ROB) until 06/04/20. Exposed patients: no roomates, ROB for two weeks incubation period following exposure. This status continued regardless of new COVID test results, and will auto- on 06/04/20. 05/21/2020 05/24/2020 06/04/2020 1:24 A M EDT documented as of this encounter Care Teams Film Printer Relationship Specialty Start Date End Date Rancho Duarte MD [address] [place] [address] [place] [id number] PCP - General Internal Medicine 03/27/20 documented as of this encounter Additional Source Comments The information contained in this document represents components of the legal health record. It is not the complete legal health record.[facility]
--- OUTSIDE RECORDS SUMMARY | 2025-08-30 15:22 | XMS_ITS | Encounter Summary ---
Author Organization [facility] Address [address] [place] [address] [place] [address] Phone Care Team Providers Care Inspector Optical Instrument Name Role Phone Rancho Duarte MD Primary Care Provider [phone] Encounter Details Date Type Department Care Team (Late st Contact Info) Description 05/05/2020 Procedure Pass [facility] [place] PERIOPER[facility]IVE DEPT [address] [place] [phone] Social History Tobacco Use Types Packs/Day Years [...] Onset Date Last Indicated Resolved Time CoV-Exposed Comment:[facility] Infection Control Unit [id number] See 05.24.20 note for detail Exposed to COIVD on 05/21/20 = Enhanced Respiratory Isolation (ROB) until 06/04/20. Exposed patients: no roomates, ROB for two weeks incubation period following exposure. This status continued regardless of new COVID test results, and will auto- on 06/04/20. 05/21/2020 05/24/2020 06/04/2020 1:24 A M EDT documented as of this encounter Care Teams Inspector Optical Instrument Relationship Specialty Start Date End Date Rancho Duarte MD [address] [place] [address] [place] [id number] PCP - General Internal Medicine 03/27/20 documented as of this encounter Additional Source Comments The information contained in this document represents components of the legal health record. It is not the complete legal health record.[facility]
--- OUTSIDE RECORDS SUMMARY | 2025-08-30 15:23 | XMS_ITS | Encounter Summary ---
Author Organization [facility] Address [address] [place] [address] Phone Care Team Providers Care Telesales Consultant Name Role Phone Rancho Duarte MD Primary Care Provider [phone] Encounter Details Date Type Department Care Team (Late st Contact Info) Description 04/03/2020 [place] [facility] [place] [address] [address] [facility], [address] [place] [address] Social History Tobacco Use Types Packs/Day Years [...] 0 6:05 AM EDT CoV-Exposed Comment:[facility] [id number] See 05.24.20 note for detail Exposed to COIVD on 05/21/20 = Enhanced Respiratory Isolation (ROB) until 06/04/20. Exposed patients: no roomates, ROB for two weeks incubation period following exposure. This status continued regardless of new COVID test results, and will auto- on 06/04/20. 05/21/2020 05/24/2020 06/04/2020 1:24 A M EDT documented as of this encounter Care Teams Telesales Consultant Relationship Specialty Start Date End Date Rancho Duarte MD [address] [place] [address] [place] [address] PCP - General Internal Medicine 03/27/20 documented as of this encounter Additional Source Comments The information contained in this document represents components of the legal health record. It is not the complete legal health record.[facility]
--- OUTSIDE RECORDS SUMMARY | 2025-08-30 15:23 | XMS_ITS | Encounter Summary ---
Author Organization [facility] Address [address] [place] [address] [place] [address] Phone Care Team Providers Care Typing Checker Name Role Phone Rancho Duarte MD Primary Care Provider [phone] Encounter Details Date Type Department Care Team (Late st Contact Info) Description 04/24/2020 Procedure Pass [facility] [place] PER[facility] DEPT [address] [place] [phone] Social History Tobacco Use Types Packs/Day Years [...] Onset Date Last Indicated Resolved Time CoV-Exposed Comment:[facility] Infection Control Unit [id number] See 05.24.20 note for detail Exposed to COIVD on 05/21/20 = Enhanced Respiratory Isolation (ROB) until 06/04/20. Exposed patients: no roomates, ROB for two weeks incubation period following exposure. This status continued regardless of new COVID test results, and will auto- on 06/04/20. 05/21/2020 05/24/2020 06/04/2020 1:24 A M EDT documented as of this encounter Care Teams Typing Checker Relationship Specialty Start Date End Date Rancho Duarte MD [address] [place] [address] [place] [id number] PCP - General Internal Medicine 03/27/20 documented as of this encounter Additional Source Comments The information contained in this document represents components of the legal health record. It is not the complete legal health record.[facility]
--- OUTSIDE RECORDS SUMMARY | 2025-08-30 15:23 | XMS_ITS | Encounter Summary ---
Author Organization [facility] Address [address] [place] [address] [place] [address] Phone Care Team Providers Care Sheet Finisher Name Role Phone Rancho Duarte MD Primary Care Provider [phone] Encounter Details Date Type Department Care Team (Late st Contact Info) Description 04/22/2020 Procedure Pass [facility] PERIOPERATIVE DEPT [address] [place] [phone] Social History Tobacco Use Types Packs/Day Years [...] [facility] [place] [id number] See 05.24.20 note for detail Exposed to COIVD on 05/21/20 = Enhanced Respiratory Isolation (ROB) until 06/04/20. Exposed patients: no roomates, ROB for two weeks incubation period following exposure. This status continued regardless of new COVID test results, and will auto- on 06/04/20. 05/21/2020 05/24/2020 06/04/2020 1:24 A M EDT documented as of this encounter Care Teams Sheet Finisher Relationship Specialty Start Date End Date Rancho Duarte MD [address] [place] [address] [place] [address] PCP - General Internal Medicine 03/27/20 documented as of this encounter Additional Source Comments The information contained in this document represents components of the legal health record. It is not the complete legal health record.[facility]
--- OUTSIDE RECORDS SUMMARY | 2025-08-30 15:23 | XMS_ITS | Encounter Summary ---
Author Organization [facility] Address [address] [place] [address] [place] [address] Phone Care Team Providers Care Gig Tender Name Role Phone Rancho Duarte MD Primary Care Provider [phone] Encounter Details Date Type Department Care Team (Late st Contact Info) Description 04/12/2020 Procedure Pass [facility] PERI[facility] DEPT [address] [place] [phone] Social History Tobacco Use Types Packs/Day Years [...] Onset Date Last Indicated Resolved Time CoV-Exposed Comment:[facility] Infection Control Unit [id number] See 05.24.20 note for detail Exposed to COIVD on 05/21/20 = Enhanced Respiratory Isolation (ROB) until 06/04/20. Exposed patients: no roomates, ROB for two weeks incubation period following exposure. This status continued regardless of new COVID test results, and will auto- on 06/04/20. 05/21/2020 05/24/2020 06/04/2020 1:24 A M EDT documented as of this encounter Care Teams Gig Tender Relationship Specialty Start Date End Date Rancho Duarte MD [address] [place] [address] [place] [address] PCP - General Internal Medicine 03/27/20 documented as of this encounter Additional Source Comments The information contained in this document represents components of the legal health record. It is not the complete legal health record.[facility]
--- OUTSIDE RECORDS SUMMARY | 2025-08-30 15:23 | XMS_ITS | Clinical Summary ---
Author Organization [facility] Address [address] [place] [address] Phone Care Team Providers Care Upper Doubler Name Role Phone Rancho Duarte MD Primary Care Provider [phone] Allergies No known active allergies Medications atorvastatin [...] (81 mg total) by mouth daily. 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 - Rectal tube in place. [...] # COVID risk. - Confirmed negative by DEVELOPMENT AND HOUSING DIRECTOR PCR for SARS-CoV-2. Endocrine: # T2DM with [...] FOBT 2013 SIGMOIDOSCOPY 2013 VIRTUAL COLONOSCOPY 2013 RSV VACCINE (1 - Risk 50-74 years 1-dose series) 2018 ZOSTER VACCINES (1 of 2) 2018 DIABETIC [...] EDT) SODIUM 135 135 - 145 mmol/L [facility] POTASSIUM 4.2 3.4 - 5.0 mmol/L [facility] CHLORIDE 99 98 - 108 mmol/L [facility] CO2 20(L) 23 - 32 mmol/L [facility] BUN 13 8 - 25 mg/dL [facility] CREATININE 0.92 0.60 - 1.50 mg/dL [facility] GLUCOSE 139(H) 70 - 110 mg/dL [facility] CALCIUM 9.1 8.5 - 10.5 mg/dL [facility] EGFR 72 >59 mL/min/1. 73m2 [facility] Comment:Estimated glomerular filtration rate calculated using the CKD-EPI equation. ANION GAP 16 3 - 17 mmol/L [facility] Blood 05/27/2020 4:27 PM EDT 05/27/2020 4:37 PM EDT us Dusty Sue MD LAB BLOOD ORDERABLES Final R esult [facility] [address] [place] [address] * (ABNORMAL) Hemoglobin A1c (03/29/2020 11:00 AM EDT) HEMOGLOBIN A1C 13.5(H) 4.3 - 6.4 % [facility] CALC MEAN BLD GLUC NOT DONE mg/dL [facility] Comment: A1C >12.0 There is no [...] MD LAB BLOOD ORDERABLES Lara castaneda Result [facility] [address] [place] [address] from Last 3 Months or Most Recently Relevant to Health Maintenance Insurance [facility] ACO AETNA PPO MEDICARE REPLACEMENT MEDICARE PART A & [facility] MEDICARE REPLACEMENT MEDICARE PART A & B [facility] [employer]CO AETNA O MEDICARE REPLACEMENT MEDICARE PART A & B O AETNA PPO MEDICARE REPLACEMENT MEDICARE PART A & B [facility] PPO MEDICARE REPLACEMENT MEDICARE PART A & B [facility] A[facility] PPO MEDICARE REPLACEMENT MEDICARE PART A & B Advance Directives For more information, please contact: [phone] (9AM - 5PM [place], Wednesday-Wednesday) Documents on File Type Date Recorded 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 It is not the complete legal health record.[facility]
--- OUTSIDE RECORDS SUMMARY | 2025-08-30 15:23 | XMS_ITS | Encounter Summary ---
Author Organization [facility] Address [address] [facility] [address] [place] [address] Phone Care Team Providers Care Counter Molder Name Role Phone Rancho Duarte MD Primary Care Provider [phone] Encounter Details Date Type Department Care Team (Late st Contact Info) Description 05/13/2020 Procedure Pass [facility] PERIOPERATIVE DEPT [address] [place] [phone] Social History Tobacco Use Types Packs/Day Years [...] Onset Date Last Indicated Resolved Time CoV-Exposed Comment:[facility] Infection Control Unit [id number] See 05.24.20 note for detail Exposed to COIVD on 05/21/20 = Enhanced Respiratory Isolation (ROB) until 06/04/20. Exposed patients: no roomates, ROB for two weeks incubation period following exposure. This status continued regardless of new COVID test results, and will auto- on 06/04/20. 05/21/2020 05/24/2020 06/04/2020 1:24 A M EDT documented as of this encounter Care Teams Counter Molder Relationship Specialty Start Date End Date Rancho Duarte MD [address] [place] [address] [place] [address] PCP - General Internal Medicine 03/27/20 documented as of this encounter Additional Source Comments The information contained in this document represents components of the legal health record. It is not the complete legal health record.[facility]
--- OUTSIDE RECORDS SUMMARY | 2025-08-30 15:23 | XMS_ITS | Encounter Summary ---
Author Organization [facility] Address [address] [facility] [address] [place] [address] Phone Care Team Providers Care Refrigeration Insulator Name Role Phone Rancho Duarte MD Primary Care Provider [phone] Encounter Details Date Type Department Care Team (Late st Contact Info) Description 04/01/2020 Procedure Pass [facility] PERIOPER[facility]IVE DEPT [address] [place] [phone] Social History Tobacco Use Types Packs/Day Years [...] 03/31/2020 03/31/2020 0 6:05 AM EDT CoV-Exposed Comment:[facility] Infection Control Unit [id number] See 05.24.20 note for detail Exposed to COIVD on 05/21/20 = Enhanced Respiratory Isolation (ROB) until 06/04/20. Exposed patients: no roomates, ROB for two weeks incubation period following exposure. This status continued regardless of new COVID test results, and will auto- on 06/04/20. 05/21/2020 05/24/2020 06/04/2020 1:24 A M EDT documented as of this encounter Care Teams Refrigeration Insulator Relationship Specialty Start Date End Date Rancho Duarte MD [address] [place] [address] [place] [address] PCP - General Internal Medicine 03/27/20 documented as of this encounter Additional Source Comments The information contained in this document represents components of the legal health record. It is not the complete legal health record.[facility]
--- OUTSIDE RECORDS SUMMARY | 2025-08-30 15:23 | XMS_ITS | Encounter Summary ---
Author Organization [facility] Address [address] [facility] [address] [place] [address] Phone Care Team Providers Care Technical Sales Representatives Name Role Phone Rancho Duarte MD Primary Care Provider [phone] Encounter Details Date Type Department Care Team (Late st Contact Info) Description 04/03/2020 Procedure Pass [facility] [place] [place] [address] [place] [phone] Social History Tobacco Use Types Packs/Day Years [...] 03/31/2020 03/31/2020 0 6:05 AM EDT CoV-Exposed Comment:[facility] [place] [id number] See 05.24.20 note for detail Exposed to COIVD on 05/21/20 = Enhanced Respiratory Isolation (ROB) until 06/04/20. Exposed patients: no roomates, ROB for two weeks incubation period following exposure. This status continued regardless of new COVID test results, and will auto- on 06/04/20. 05/21/2020 05/24/2020 06/04/2020 1:24 A M EDT documented as of this encounter Care Teams Technical Sales Representatives Relationship Specialty Start Date End Date Rancho Duarte MD [address] [place] [address] [place] [address] PCP - General Internal Medicine 03/27/20 documented as of this encounter Additional Source Comments The information contained in this document represents components of the legal health record. It is not the complete legal health record.[facility]
--- OUTSIDE RECORDS SUMMARY | 2025-08-30 15:23 | XMS_ITS | Encounter Summary ---
Author Organization [facility] Address [address] [place] [address] [place] [address] Phone Care Team Providers Care Rotary Drill Operator Name Role Phone Rancho Duarte MD Primary Care Provider [phone] Encounter Details Date Type Department Care Team (Late st Contact Info) Description 04/15/[address] [facility] PERIOPERATIVE DEPT [address] [place] [phone] Social History Tobacco Use Types Packs/Day Years [...] [facility] [id number] See 05.24.20 note for detail Exposed to COIVD on 05/21/20 = Enhanced Respiratory Isolation (ROB) until 06/04/20. Exposed patients: no roomates, ROB for two weeks incubation period following exposure. This status continued regardless of new COVID test results, and will auto- on 06/04/20. 05/21/2020 05/24/2020 06/04/2020 1:24 A M EDT documented as of this encounter Care Teams Rotary Drill Operator Relationship Specialty Start Date End Date Rancho Duarte MD [address] [place] [address] [place] [address] PCP - General Internal Medicine 03/27/20 documented as of this encounter Additional Source Comments The information contained in this document represents components of the legal health record. It is not the complete legal health record.[facility]
--- OUTSIDE RECORDS SUMMARY | 2025-08-30 15:23 | XMS_ITS | Encounter Summary ---
Author Organization [facility] Address [address] [place] [address] [place] [address] Phone Care Team Providers Care Bilingual Operator Name Role Phone Rancho Duarte MD Primary Care Provider [phone] Encounter Details Date Type Department Care Team (Late st Contact Info) Description 04/05/2020 Procedure Pass [facility] PERIOPER[facility]IVE DEPT [address] [place] [phone] Social History Tobacco Use Types Packs/Day Years [...] Onset Date Last Indicated Resolved Time CoV-Exposed Comment:[facility] Infection Control Unit [id number] See 05.24.20 note for detail Exposed to COIVD on 05/21/20 = Enhanced Respiratory Isolation (ROB) until 06/04/20. Exposed patients: no roomates, ROB for two weeks incubation period following exposure. This status continued regardless of new COVID test results, and will auto- on 06/04/20. 05/21/2020 05/24/2020 06/04/2020 1:24 A M EDT documented as of this encounter Care Teams Bilingual Operator Relationship Specialty Start Date End Date Rancho Duarte MD [address] [place] [address] [place] [address] PCP - General Internal Medicine 03/27/20 documented as of this encounter Additional Source Comments The information contained in this document represents components of the legal health record. It is not the complete legal health record.[facility]
--- OUTSIDE RECORDS SUMMARY | 2025-08-30 15:23 | XMS_ITS | Encounter Summary ---
Author Organization [facility] Address [address] [place] [address] [place] [address] Phone Care Team Providers Care Flour Worker Name Role Phone Rancho Duarte MD Primary Care Provider [phone] Encounter Details Date Type Department Care Team (Late st Contact Info) Description 04/08/2020 Procedure Pass [facility] [address] [place] [phone] Social History Tobacco Use Types Packs/Day Years [...] Date Last Indicated Resolved Time CoV-Exposed Comment:[facility] [place] [id number] See 05.24.20 note for detail Exposed to COIVD on 05/21/20 = Enhanced Respiratory Isolation (ROB) until 06/04/20. Exposed patients: no roomates, ROB for two weeks incubation period following exposure. This status continued regardless of new COVID test results, and will auto- on 06/04/20. 05/21/2020 05/24/2020 06/04/2020 1:24 A M EDT documented as of this encounter Care Teams Flour Worker Relationship Specialty Start Date End Date Rancho Duarte MD [address] [place] [address] [place] [address] PCP - General Internal Medicine 03/27/20 documented as of this encounter Additional Source Comments The information contained in this document represents components of the legal health record. It is not the complete legal health record.[facility]
--- OUTSIDE RECORDS SUMMARY | 2025-08-30 15:23 | XMS_ITS | Encounter Summary ---
Author Organization [facility] Address [address] [place] [address] Phone Care Team Providers Care Back Tender Insulation Board Name Role Phone Rancho Duarte MD Primary Care Provider [phone] Encounter Details Date Type Department Care Team (Late st Contact Info) Description 04/03/2020 [place] [facility] [place] [address] [facility], [address]nd [address], [address] [place] [address] Social History Tobacco Use Types Packs/Day Years [...] [facility] [place] [id number] See 05.24.20 note for detail Exposed to COIVD on 05/21/20 = Enhanced Respiratory Isolation (ROB) until 06/04/20. Exposed patients: no roomates, ROB for two weeks incubation period following exposure. This status continued regardless of new COVID test results, and will auto- on 06/04/20. 05/21/2020 05/24/2020 06/04/2020 1:24 A M EDT documented as of this encounter Care Teams Back Tender Insulation Board Relationship Specialty Start Date End Date Rancho Duarte MD [address] [place] [address] [place] [address] PCP - General Internal Medicine 03/27/20 documented as of this encounter Additional Source Comments The information contained in this document represents components of the legal health record. It is not the complete legal health record.[facility]
--- OUTSIDE RECORDS SUMMARY | 2025-08-30 15:23 | XMS_ITS | Encounter Summary ---
Author Organization [facility] Address [address] [facility] [address] [place] [address] Phone Care Team Providers Care Slot Ambassador Name Role Phone Rancho Duarte MD Primary Care Provider [phone] Encounter Details Date Type Department Care Team (Late st Contact Info) Description 05/17/2020 Procedure Pass [facility]PT [address] [place] [phone] Social History Tobacco Use Types Packs/Day Years [...] Onset Date Last Indicated Resolved Time CoV-Exposed Comment:[facility] Infection Control Unit [id number] See 05.24.20 note for detail Exposed to COIVD on 05/21/20 = Enhanced Respiratory Isolation (ROB) until 06/04/20. Exposed patients: no roomates, ROB for two weeks incubation period following exposure. This status continued regardless of new COVID test results, and will auto- on 06/04/20. 05/21/2020 05/24/2020 06/04/2020 1:24 A M EDT documented as of this encounter Care Teams Slot Ambassador Relationship Specialty Start Date End Date Rancho Duarte MD [address] [place] [address] [place] [address] PCP - General Internal Medicine 03/27/20 documented as of this encounter Additional Source Comments The information contained in this document represents components of the legal health record. It is not the complete legal health record.[facility]
--- OUTSIDE RECORDS SUMMARY | 2025-08-30 15:23 | XMS_ITS | Encounter Summary ---
Author Organization [facility] Address [address] [facility] [address] [place] [address] Phone Care Team Providers Care Amplifier Mechanic Name Role Phone Rancho Duarte MD Primary Care Provider [phone] Encounter Details Date Type Department Care Team (Late st Contact Info) Description 05/22/2020 Procedure Pass [facility] PERIOPER[facility] DEPT [address] [place] [phone] Social History Tobacco Use Types Packs/Day Years [...] Onset Date Last Indicated Resolved Time CoV-Exposed Comment:[facility] [place] [place] Infection Control Unit [id number] See 05.24.20 note for detail Exposed to COIVD on 05/21/20 = Enhanced Respiratory Isolation (ROB) until 06/04/20. Exposed patients: no roomates, ROB for two weeks incubation period following exposure. This status continued regardless of new COVID test results, and will auto- on 06/04/20. 05/21/2020 05/24/2020 06/04/2020 1:24 A M EDT documented as of this encounter Care Teams Amplifier Mechanic Relationship Specialty Start Date End Date Rancho Duarte MD [address] [place] [address] [place] [address] PCP - General Internal Medicine 03/27/20 documented as of this encounter Additional Source Comments The information contained in this document represents components of the legal health record. It is not the complete legal health record.[facility]
--- OUTSIDE RECORDS SUMMARY | 2025-08-30 15:23 | XMS_ITS | Encounter Summary ---
Author Organization [facility] Address [address] [place] [address] [place] [address] Phone Care Team Providers Care Counter Control Operator Name Role Phone Rancho Duarte MD Primary Care Provider Encounter Details Date Type Department Care Team (Late st Contact Info) Description 04/19/2020 Procedure Pass [facility] PERIOPER[facility]IVE DEPT [address] [place] [phone] Social History Tobacco Use Types Packs/Day Years [...] [facility] Unit [id number] See 05.24.20 note for detail Exposed to COIVD on 05/21/20 = Enhanced Respiratory Isolation (ROB) until 06/04/20. Exposed patients: no roomates, ROB for two weeks incubation period following exposure. This status continued regardless of new COVID test results, and will auto- on 06/04/20. 05/21/2020 05/24/2020 06/04/2020 1:24 A M EDT documented as of this encounter Care Teams Counter Control Operator Relationship Specialty Start Date End Date Rancho Duarte MD [address] [place] [address] [place] [address] PCP - General Internal Medicine 03/27/20 documented as of this encounter Additional Source Comments The information contained in this document represents components of the legal health record. It is not the complete legal health record.[facility]
== END 2025-08-30 13:14 | disposition home or self-care (01) ==
LOC: HO.HCS 12:29
PROVIDERS: PCP Internal Medicine
DX: I25.10 Atherosclerotic heart disease of native coronary artery without angina pectoris (principal); Z98.890 Other specified postprocedural states; I48.91 Unspecified atrial fibrillation; I42.9 Cardiomyopathy, unspecified; I10 Essential (primary) hypertension; E78.5 Hyperlipidemia, unspecified; E11.8 Type 2 diabetes mellitus with unspecified complications; F17.200 Nicotine dependence, unspecified, uncomplicated
CPT/HCPCS: 99214; G2211

== ENCOUNTER → 2025-08-30 12:28 | Outpatient (BNVA) | payer MEDICARE, SELFPAY | PROVIDERS: PCP Internal Medicine | DX: I25.10 Atherosclerotic heart disease of native coronary artery without angina pectoris (principal); I48.91 Unspecified atrial fibrillation; Z98.890 Other specified postprocedural states; I42.9 Cardiomyopathy, unspecified; I10 Essential (primary) hypertension; E78.5 Hyperlipidemia, unspecified; E11.8 Type 2 diabetes mellitus with unspecified complications; F17.210 Nicotine dependence, cigarettes, uncomplicated | CPT/HCPCS: 99212 ==

== ENCOUNTER → 2025-10-05 09:08 | Outpatient (BNV) | payer MEDICARE, SELFPAY | PROVIDERS: PCP Internal Medicine; Visit Provider Radiology Diagnostic Ultrasound | DX: M79.89 Other specified soft tissue disorders (principal) | CPT/HCPCS: 73630 ==